=== PATIENT | male | born 1990 | race American Indian/Alaskan Native ===

== ENCOUNTER 2017-02-11 16:34 | Inpatient (IN) | payer MEDICAID, OTHER ==
[2017-02-11 16:35] VITALS: BMI 27.4
--- NOTE | 2017-02-11 17:16 | C.PDOC ---
History Of Present Illness 26 y/o male, whose PMHx includes diabetes and hypertension, presents to the ED complaining of weakness and near syncope "all the time." He reports that he cannot perform his ADL. Patient states that he was admitted one month prior for same but he has cancelled his insurance so he hasn't been able to follow up with his PMD. Patient denies fever, chills, abdominal pain, vomiting, chest pain , shortness of breath, or other complaints. Chief Complaint (Nursing): Dizziness/Lightheaded History Per: Patient History/Exam Limitations: no limitations Onset/Duration Of Symptoms: Days, Gradual, Persistent Current Symptoms Are (Timing): Still Present Fall Associated With With Symptoms: No Recent travel outside of the [place]: No Past Medical History Reviewed: Historical Data, Nursing Documentation, Vital Signs Vital Signs: Last Vital Signs Temp 99.8 F H 02/11/17 16:53 Pulse 103 H 02/11/17 16:53 Resp 20 02/11/17 16:53 BP 108/67 02/11/17 16:53 Pulse Ox 98 02/11/17 18:09 - Medical History PMH: Diabetes (Type 1), Fractures (R shoulder 2015), HTN Surgical History: No Surg Hx Family History: States: Diabetes (Grandmother on Fathers side) - Social History Hx Tobacco Use: No Hx Alcohol Use: No Hx Substance Use: Yes - Immunization History Hx Tetanus Toxoid Vaccination: Yes Hx Influenza Vaccination: Yes Hx Pneumococcal Vaccination: No Review Of Systems Except As Marked, All Systems Reviewed And Found Negative. Constitutional: Positive for: Weakness. Negative for: Fever, Chills Cardiovascular: Negative for: Chest Pain Respiratory: Negative for: Shortness of Breath Gastrointestinal: Negative for: Vomiting, Abdominal Pain Neurological: Positive for: Other (near syncope) Physical Exam - Physical Exam Appears: Non-toxic, No Acute Distress, Other (weak) Skin: Normal Color, Warm, Dry Head: Atraumatic, Normacephalic Eye(s): bilateral: Normal Inspection, PERRL Oral Mucosa: Dry Neck: Normal ROM, Supple Chest: Symmetrical Cardiovascular: Rhythm Regular Respiratory: Normal Breath Sounds, No Rales, No Rhonchi, No Wheezing Gastrointestinal/Abdominal: Normal Exam, Soft, No Tenderness Back: Normal Inspection, No CVA Tenderness Extremity: Normal ROM, No Swelling Neurological/Psych: Oriented x3, Normal Speech, Normal Cognition ED Course And Treatment - Laboratory Results Result Diagrams: 02/11/17 17:56 02/11/17 17:56 O2 Sat by Pulse Oximetry: 98 (ra) Pulse Ox Interpretation: Normal Progress Note: On arrival patient finger stick at 62 at 16:54 - pt given juice and sandwich. EKG, chest x-ray, blood work, influenza A B, and urinalysis were ordered. Patient treated with IV fluids. 17:33 finger stick at 145. Disposition - Disposition Disposition: HOSPITALIZED Disposition Time: 19:14 Condition: FAIR - Clinical Impression Clinical Impression: Near syncope, Dizziness - PA / KETTLEMAN / Resident Statement MD/DO has reviewed & agrees with the documentation as recorded. - Scribe Statement The provider has reviewed the documentation as recorded by the Scribe (Frieda Nuno) All medical record entries made by the Scribe were at my direction and personally dictated by me. I have reviewed the chart and agree that the record accurately reflects my personal performance of the history, physical exam, medical decision making, and the department course for this patient. I have also personally directed, reviewed, and agree with the discharge instructions and disposition. Physician Patient Turnover Patient Signed Over To: Tyrone Cox Handoff Comments: UDS, dispo
[2017-02-11] MEDS ORDERED: Sodium Chloride 0.9% 1,000 ML IV STA (17:21)
[2017-02-11] MEDS ORDERED: Sodium Chloride 0.9% 1,000 ML ONE (17:40)
[2017-02-11 18:06] LABS: BASO # 0.1 K/uL (0.0-0.2); HEMATOCRIT 29.8 % (35.0-51.0); LYMPH # 1.7 K/uL (1.0-4.3); LYMPH % 19.5 % (20.0-40.0); MONO # 0.7 K/uL (0.0-0.8); NRBC % 0.2 % (0.0-2.0); RED CELL DISTRIBUTION WIDTH 13.3 % (11.5-14.5)
[2017-02-11 18:12] LABS: BASO % 0.7 % (0.0-2.0); EOS # 0.1 K/uL (0.0-0.7); EOS % 0.6 % (0.0-4.0); MEAN CELL VOLUME 82.3 fL (80.0-94.0); MEAN CORPUSCULAR HEMOGLOBIN 27.3 pg (27.0-31.0); MEAN CORPUSCULAR HGB CONC 33.2 g/dL (33.0-37.0); MEAN PLATELET VOLUME 7.9 fL (7.2-11.7); WHITE BLOOD COUNT 8.7 K/uL (4.8-10.8)
[2017-02-11 18:14] LABS: CHLORIDE 93 mmol/L (98-107); POTASSIUM 4.8 mmol/L (3.6-5.2); SODIUM 137 mmol/L (132-148)
[2017-02-11 18:16] LABS: ALB/GLOB RATIO 0.8 (1.0-2.1); AMYLASE 69 U/L (30-110); BILIRUBIN,TOTAL 0.4 mg/dL (0.2-1.3); CARBON DIOXIDE 26 mmol/L (22-30); GFR AFRICAN-AMERICAN > 60; TOTAL PROTEIN 8.9 g/dL (6.3-8.3)
[2017-02-11 18:17] LABS: ALKALINE PHOSPHATASE 87 U/L (38-126); ALT/SGPT 9 U/L (21-72); AST/SGOT 23 U/L (17-59); BLOOD UREA NITROGEN 23 mg/dL (9-20); CALCIUM 9.5 mg/dl (8.6-10.4); GLUCOSE,RANDOM 139 mg/dL (75-110)
--- NOTE | 2017-02-11 18:56 | RAD ---
PROCEDURE: CHEST RADIOGRAPH, 1 VIEW HISTORY: Dizziness COMPARISON: 01/17/2017 FINDINGS: LUNGS: The lungs are well inflated and clear. PLEURA: No pneumothorax or pleural fluid seen. CARDIOVASCULAR: Normal. OSSEOUS STRUCTURES: No significant abnormalities. VISUALIZED UPPER ABDOMEN: Normal. OTHER FINDINGS: None. IMPRESSION: No active pulmonary disease.
[2017-02-11 18:59] LABS: RBC URINE 11 /hpf (0-3); URINE BACTERIA OCC (<OCC); URINE BILIRUBIN NEGATIVE (NEGATIVE); URINE BLOOD 1+ (NEGATIVE); URINE COLOR Yellow (YELLOW); URINE GLUCOSE (UA) 1+ mg/dL (Normal); URINE KETONE NEGATIVE (NEGATIVE); URINE LEUKOCYTE ESTERASE NEG Leu/uL (Negative); URINE PROTEIN 2+ mg/dL (NEGATIVE); URINE UROBILINOGEN NORMAL mg/dL (0.2-1.0); WBC URINE 3 /hpf (0-5)
[2017-02-11] MEDS ORDERED: Sodium Chloride 0.9% 1,000 ML IV SCH (23:45)
--- NOTE | 2017-02-12 01:21 | CP.PCM.HP ---
<Nancy Mcbride - Last Filed: 02/12/17 01:03> History of Present Illness - History of Present Illness History of Present Illness: CC: "dizziness and lightheadedness" HPI: Patient is a 26M with medical history significant for type I diabetes who presents to the emergency department complaining of dizziness and lightheadedness which has increased in severity. Patient states he has felt dizziness since being discharged from the hospital on 01/18/17 and recently it has been affecting his daily activities. He notes symptoms to occur after standing for prolonged period of time and describes loss of coordination. Patient reports he cannot prepare meals or work due to dizziness. His oral intake of food/fluids is poor. Patient notes a hypoglycemic episode yesterday. He states symptoms are alleviated by drinking fluids. Patient also admits to headache, blurry vision, and sensitivity to bright lights. Patient currently is taking Lisinopril 2.5 mg po daily. He states his primary care doctor recently decreased the dose from 5 mg. Patient denies fever, chills, chest pain, palpitations, nausea, vomiting, abdominal pain, constipation, diarrhea, increased urinary frequency, lower extremity swelling, and numbness/change of sensation to feet. PMD: Dr. Curran PMH: DM type I (diagnosed 12 years ago), R should fracture (2015) Medications: Lisinopril 2.5 mg po daily, Lantus 20 U SC HS, Novolog 7 U before meals Allergies: NKDA Family Hx: Mother - HTN, Grandmother - DM Surgical Hx: none Social: Denies tobacco and alcohol use. Admits to smoking marijuana daily. Present on Admission - Present on Admission Any Indicators Present on Admission: No History of DVT/PE: No History of Uncontrolled Diabetes: No Urinary Catheter: No Decubitus Ulcer Present: No Review of Systems - Constitutional Constitutional: absent: Chills, Fever, Weight Loss - EENT Eyes: Blurred Vision, Photophobia. absent: Pain Ears: absent: Ear Pain, Tinnitus Nose/Mouth/Throat: Nasal Congestion. absent: Nasal Discharge - Cardiovascular Cardiovascular: Lightheadedness. absent: Chest Pain, Dyspnea, Dyspnea on Exertion, Leg Edema, Palpitations, Pedal Edema, Rapid Heart Rate - Respiratory Respiratory: Cough, Chest Congestion. absent: Wheezing, Excessive Mucous Production - Gastrointestinal Gastrointestinal: absent: Abdominal Pain, Constipation, Diarrhea, Nausea, Vomiting - Genitourinary Genitourinary: absent: Change in Urinary Stream, Difficulty Urinating - Musculoskeletal Musculoskeletal: absent: Arthralgias, Back Pain - Integumentary Integumentary: absent: Changing Lesions, New Lesions - Neurological Neurological: Dizziness, Headaches, Lack of Coordination. absent: Abnormal Hearing, Confusion, Numbness, Frequent Falls, Syncope, Tingling - Psychiatric Psychiatric: absent: Anxiety, Depression Past Patient History - Infectious Disease Hx of Infectious Diseases: None - Tetanus Immunizations Tetanus Immunization: Unknown - Past Medical History & Family History Past Medical History?: Yes - Past Social History Smoking Status: Current Some Days Smoker - CARDIAC Hx Hypertension: Yes - PULMONARY Hx Asthma: No Hx Bronchitis: No Hx Chronic Obstructive Pulmonary Disease (COPD): No Hx Emphysema: No Hx Pneumonia: No Hx Pulmonary Embolism: No Hx Sleep Apnea: No - NEUROLOGICAL Hx Alzheimer's Disease: No Hx Dementia: No Hx Migraine: No Hx Multiple Sclerosis: No Hx Parkinson's Disease: No Hx Seizures: No Hx Transient Ischemic Attacks (TIA): No - HEENT Hx HEENT Problems: No Hx Blind: No Hx Cataracts: No Hx Deafness: No Hx Difficulty Chewing: No Hx Epistaxis: No Hx Glaucoma: No Hx Macular Degeneration: No - RENAL Hx Chronic Kidney Disease: No Hx Kidney Stones: No - ENDOCRINE/METABOLIC Hx Hyperthyroidism: No Hx Hypothyroidism: No - HEMATOLOGICAL/ONCOLOGICAL Hx Anemia: No Hx Human Immunodeficiency Virus (HIV): No Hx Sickle Cell Disease: No - INTEGUMENTARY Hx Dermatological Problems: Yes Hx Eczema: Yes - MUSCULOSKELETAL/RHEUMATOLOGICAL Hx Fractures: Yes (2014) - GASTROINTESTINAL Hx Crohn's Disease: No Hx Diverticulitis: No Hx Gall Bladder Disease: No Hx Gastritis: No Hx Pancreatitis: No - GENITOURINARY/GYNECOLOGICAL Hx Sexually Transmitted Disorders: No - PSYCHIATRIC Hx Substance Use: Yes - SURGICAL HISTORY Hx Appendectomy: No Hx Carotid Endarterectomy: No Hx Cholecystectomy: No Hx Coronary Artery Bypass Graft: No Hx Coronary Stent: No Hx Tonsillectomy: No - ANESTHESIA Hx Anesthesia: No Hx Anesthesia Reactions: No Hx Malignant Hyperthermia: No Meds Allergies/Adverse Reactions: Allergies Allergy/AdvReac Type Severity Reaction Status Date / Time pollen extracts Allergy ITCHING Verified 01/17/17 13:42 Physical Exam - Constitutional Appears: Non-toxic, No Acute Distress - Head Exam Head Exam: ATRAUMATIC, NORMAL INSPECTION, NORMOCEPHALIC - Eye Exam Eye Exam: EOMI, Normal appearance, PERRL - ENT Exam ENT Exam: Mucous Membranes Dry - Neck Exam Neck exam: Positive for: Full Rom, Normal Inspection - Respiratory Exam Respiratory Exam: Clear to Auscultation Bilateral, NORMAL BREATHING PATTERN. absent: Decreased Breath Sounds, Rales, Rhonchi, Wheezes - Cardiovascular Exam Cardiovascular Exam: +S1, +S2. absent: Diastolic murmur, Gallop, Rubs, Systolic Murmur - GI/Abdominal Exam GI & Abdominal Exam: Normal Bowel Sounds, Soft. absent: Distended, Firm, Guarding, Hernia - Extremities Exam Extremities exam: Positive for: pedal pulses present. Negative for: pedal edema Additional comments: bleeding ulcer to left heel - Neurological Exam Neurological exam: Alert, Oriented x3 - Psychiatric Exam Psychiatric exam: Normal Affect, Normal Mood - Skin Skin Exam: Dry, Normal Color Results - Vital Signs Recent Vital Signs: Last Vital Signs Temp 99.3 F 02/12/17 00:20 Pulse 102 H 02/12/17 00:20 Resp 20 02/12/17 00:20 BP 114/76 02/12/17 00:20 Pulse Ox 97 02/12/17 00:20 - Labs Result Diagrams: 02/11/17 17:56 02/11/17 17:56 Labs: Laboratory Results - last 24 hr 02/11/17 21:32 POC Glucose (mg/dL) 205 H Assessment & Plan - Assessment and Plan (Free Text) Assessment: 1. Orthostatic Hypotension likely causing dizziness BP 108/67 Hold Lisinopril Orthostatic vitals Monitor 2. Dehydration Clinically dry BUN/CR 23/1.0 Normal Saline IV @100cc 3. Type I Diabetes f/u hemoglobin a1c possibly contributing component of diabetic autonomic neuropathy Continue home medications: Lantus 10 U SC HS Novolog 7 U SC before meals Accuchecks 4. Left Foot Wound f/u culture Wound Care to evaluate. f/u recs 5. Prophylaxis PT/OT eval SCD - Date & Time Date: 02/12/17 Time: 01:38 <Sher Jaime P - Last Filed: 02/14/17 20:15> Results - Vital Signs Recent Vital Signs: Last Vital Signs Temp 97.7 F 02/14/17 07:00 Pulse 90 02/14/17 08:00 Resp 20 03/24/17 07:00 BP 140/91 H 02/14/17 07:00 Pulse Ox 99 02/14/17 07:00 - Labs Result Diagrams: 02/14/17 07:23 02/14/17 07:23 Labs: Laboratory Results - last 24 hr 02/14/17 11:09 POC Glucose (mg/dL) 309 H Attending/Attestation - Attestation I have personally seen and examined this patient.: Yes I have fully participated in the care of the patient.: Yes I have reviewed all pertinent clinical information: Yes
[2017-02-12] MEDS ORDERED: Influenza Virus Vaccine 45 mcg/0.5 ml Syr IM ONE (05:03)
[2017-02-12] MEDS ORDERED: Pneumococcal 23-Valent Vaccine IM ONE (05:03)
[2017-02-12] MEDS ORDERED: (Novolin R) Insulin Human Regular 100 units/ml vial SC SCH (07:30)
[2017-02-12 07:32] LABS: BASO % 0.4 % (0.0-2.0); EOS % 0.5 % (0.0-4.0); HEMATOCRIT 29.3 % (35.0-51.0); LYMPH # 1.9 K/uL (1.0-4.3); LYMPH % 24.3 % (20.0-40.0); MEAN CELL VOLUME 82.4 fL (80.0-94.0); MEAN CORPUSCULAR HGB CONC 32.8 g/dL (33.0-37.0); MEAN PLATELET VOLUME 7.7 fL (7.2-11.7); MONO # 0.6 K/uL (0.0-0.8); MONO % 8.2 % (0.0-10.0); RED CELL DISTRIBUTION WIDTH 12.9 % (11.5-14.5); WHITE BLOOD COUNT 7.7 K/uL (4.8-10.8)
[2017-02-12 07:33] LABS: CHLORIDE 93 mmol/L (98-107); POTASSIUM 4.2 mmol/L (3.6-5.2); SODIUM 134 mmol/L (132-148)
[2017-02-12 07:35] LABS: ALB/GLOB RATIO 0.8 (1.0-2.1); AST/SGOT 20 U/L (17-59); BILIRUBIN,TOTAL 0.3 mg/dL (0.2-1.3); BLOOD UREA NITROGEN 18 mg/dL (9-20); CARBON DIOXIDE 29 mmol/L (22-30); CHOLESTEROL 151 mg/dL (0-199); GFR AFRICAN-AMERICAN > 60; TOTAL PROTEIN 7.6 g/dL (6.3-8.3)
[2017-02-12 07:36] LABS: ALKALINE PHOSPHATASE 85 U/L (38-126); ALT/SGPT 13 U/L (21-72); CALCIUM 8.7 mg/dl (8.6-10.4); GLUCOSE,RANDOM 245 mg/dL (75-110); MAGNESIUM 1.6 mg/dL (1.6-2.3); PHOSPHOROUS 3.7 mg/dL (2.5-4.5)
[2017-02-12] MEDS: (Novolin R) Insulin Human Regular 100 units/ml vial SC SCH ×3 (08:30→17:30)
--- NOTE | 2017-02-12 09:47 | CP.PCM.PN ---
<Kirstin Khan - Last Filed: 02/12/17 15:29> Subjective - Date & Time of Evaluation Date of Evaluation: 02/12/17 Time of Evaluation: 07:15 - Subjective Subjective: Internal medicine progress note for Dr. Bueno - Kirstin Khan, PGY-1 Pt S & E at bedside. Pt reports continued weakness, some abdominal pain, dizziness upon standing, has not been eating due to inability to obtain own food, blood sugars have been low - in 60's at home. Did not follow up with PMD as specified at last admission. Denies N/V/F/C, SOB, CP, constipation, diarrhea. Slept ok. Objective - Vital Signs/Intake and Output Vital Signs (last 24 hours): Temp Pulse Resp BP Pulse Ox 98.6 F 96 H 17 138/92 H 99 02/12/17 07:40 02/12/17 07:40 02/12/17 07:40 02/12/17 07:40 02/12/17 07:40 Intake and Output: 02/12/17 02/12/17 06:59 18:59 Intake Total 840 Balance 840 - Medications Medications: Current Medications Sodium Chloride (Sodium Chloride 0.9%) 1,000 mls @ 100 mls/hr IV .Q10H [facility] Insulin Glargine (Lantus) 10 unit SC HS [facility] Insulin Human Regular (Novolin R) 7 unit SC TIDAC [facility] Last Admin: 02/12/17 08:30 Dose: 7 unit Pneumococcal Polyvalent Vaccine (Pneumovax 23 Vaccine) 0.5 ml IM .ONCE ONE Stop: 02/14/17 10:01 - Labs Labs: 02/12/17 07:06 02/12/17 07:06 - Constitutional Appears: Non-toxic, No Acute Distress - Head Exam Head Exam: ATRAUMATIC, NORMAL INSPECTION, NORMOCEPHALIC - Eye Exam Eye Exam: EOMI, Normal appearance, PERRL Pupil Exam: NORMAL ACCOMODATION, PERRL - ENT Exam ENT Exam: Mucous Membranes Dry (lips also dry), Normal Exam - Neck Exam Neck Exam: Full ROM, Normal Inspection - Respiratory Exam Respiratory Exam: Clear to Ausculation Bilateral, NORMAL BREATHING PATTERN. absent: Rales, Rhonchi, Wheezes - Cardiovascular Exam Cardiovascular Exam: REGULAR RHYTHM, +S1, +S2 - GI/Abdominal Exam GI & Abdominal Exam: Soft, Normal Bowel Sounds. absent: Distended, Firm, Guarding, Rigid, Tenderness - Extremities Exam Extremities Exam: Full ROM, Normal Inspection - Back Exam Back Exam: Full ROM, NORMAL INSPECTION - Neurological Exam Neurological Exam: Alert, Awake, CN II-XII Intact, Oriented x3 - Psychiatric Exam Psychiatric exam: Normal Affect, Normal Mood - Skin Skin Exam: Dry, Intact, Normal Color, Warm Assessment and Plan - Assessment and Plan (Free Text) Assessment: Orthostatic Hypotension likely causing dizziness BP 108/67 Holding Lisinopril Orthostatic vitals Monitor Dehydration Pt still clinically dry BUN/CR 18/0.9- improving Normal Saline IV @100cc- increased to 125 cc Type I Diabetes A1c 12.8 Continue home medications: Lantus 10 U SC HS Novolog 7 U SC before meals 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 Left Foot Wound f/u culture Wound Care Podiatry consulted Migraine headaches (chronic) Tylenol PRN Nausea Zofran PRN Prophylaxis PT/OT eval SCD DW attending <Pritesh Bueno H - Last Filed: 02/12/17 17:37> Objective - Vital Signs/Intake and Output Vital Signs (last 24 hours): Temp Pulse Resp BP Pulse Ox 99.0 F 94 H 20 134/89 98 02/12/17 16:45 02/12/17 16:45 02/12/17 16:45 02/12/17 16:45 02/12/17 16:45 Intake and Output: 02/12/17 02/12/17 06:59 18:59 Intake Total 840 1300 Output Total 700 Balance 840 600 - Medications Medications: Current Medications Acetaminophen (Tylenol 325mg Tab) 650 mg PO Q6 PRN PRN Reason: Headache Last Admin: 02/12/17 11:51 Dose: 650 mg Sodium Chloride (Sodium Chloride 0.9%) 1,000 mls @ 125 mls/hr IV .Q8H [facility] Last Admin: 02/12/17 11:15 Dose: 125 mls/hr Insulin Glargine (Lantus) 10 unit SC HS [facility] Insulin Human Regular (Novolin R) 7 unit SC TIDAC [facility] Last Admin: 02/12/17 17:30 Dose: 7 unit Lisinopril (Zestril) 2.5 mg PO DAILY [facility] Last Admin: 02/12/17 10:04 Dose: Not Given Ondansetron HCl (Zofran Odt) 4 mg PO Q6H PRN PRN Reason: Nausea/Vomiting Pneumococcal Polyvalent Vaccine (Pneumovax 23 Vaccine) 0.5 ml IM .ONCE ONE Stop: 02/14/17 10:01 - Labs Labs: 02/12/17 07:06 02/12/17 07:06 Attending/Attestation - Attestation I have personally seen and examined this patient.: Yes I have fully participated in the care of the patient.: Yes I have reviewed all pertinent clinical information, including history, physical exam and plan: Yes Notes (Text): Medical Attending: Patient was seen and examined by me. Agree with the above note by the resident. The patient was started on IVF by admitting team and I agree with this. He still appears dry on exam and when checking orthostatic numbers there was a wide change and he felt dizzy and tired. For now continue with the IVF, hold off on lisinopril for the time. With reguards to his DM - he does have a high HgbA1C. Will try to get diabetic education to come and speak with the patient. thank you Pritesh Bueno
[2017-02-12] MEDS: Sodium Chloride 0.9% 1,000 ML IV SCH ×2 (11:15→20:00)
--- NOTE | 2017-02-12 12:11 | CARD ---
APPROVED REPORT EKG Measurement Heart [id number] <Conclusion> Sinus tachycardia Nonspecific ST abnormality Abnormal ECG
[2017-02-12] MEDS: (Lantus) Insulin Glargine, Recombinant SC SCH (22:16)
[2017-02-13] MEDS: Sodium Chloride 0.9% 1,000 ML IV SCH ×2 (04:34→21:15)
[2017-02-13] MEDS: (Novolin R) Insulin Human Regular 100 units/ml vial SC SCH ×3 (07:30→17:47)
--- NOTE | 2017-02-13 08:22 | CP.PCM.PN ---
<Kirstin Khan - Last Filed: 02/13/17 12:24> Subjective - Date & Time of Evaluation Date of Evaluation: 02/13/17 Time of Evaluation: 07:00 - Subjective Subjective: Internal medicine progress note for Dr. Bueno - Kirstin Khan, PGY-1 Pt S & E at bedside Pt w/continued headache overnight - instructed pt to ask for Tylenol as needed. Continues w/weakness, dizziness upon standing, is tolerating diet. Cough has improved. Is sleeping ok. Denies N/V/F/C, SOB, CP, abdominal pain, lower extremity pain. Objective - Vital Signs/Intake and Output Vital Signs (last 24 hours): Temp Pulse Resp BP Pulse Ox 99.2 F 95 H 20 146/93 H 96 02/12/17 23:35 02/13/17 03:40 02/12/17 23:35 02/12/17 23:35 02/12/17 23:35 Intake and Output: 02/13/17 02/13/17 06:59 18:59 Intake Total 2660 Output Total 1800 Balance 860 - Medications Medications: Current Medications Acetaminophen (Tylenol 325mg Tab) 650 mg PO Q6 PRN PRN Reason: Headache Last Admin: 02/12/17 21:41 Dose: 650 mg Sodium Chloride (Sodium Chloride 0.9%) 1,000 mls @ 125 mls/hr IV .Q8H [facility] Last Admin: 02/13/17 04:34 Dose: 125 mls/hr Insulin Glargine (Lantus) 10 unit SC HS [facility] Last Admin: 02/12/17 22:16 Dose: 10 units Insulin Human Regular (Novolin R) 7 unit SC TIDAC [facility] Last Admin: 02/12/17 17:30 Dose: 7 unit Lisinopril (Zestril) 2.5 mg PO DAILY [facility] Last Admin: 02/12/17 10:04 Dose: Not Given Ondansetron HCl (Zofran Odt) 4 mg PO Q6H PRN PRN Reason: Nausea/Vomiting Pneumococcal Polyvalent Vaccine (Pneumovax 23 Vaccine) 0.5 ml IM .ONCE ONE Stop: 02/14/17 10:01 Vitamin A (Vitamin A & D Oint Ud Foilpak) 0.5 ea TOP BID [facility] - Labs Labs: 02/12/17 07:06 02/12/17 07:06 - Constitutional Appears: Non-toxic, No Acute Distress - Head Exam Head Exam: ATRAUMATIC, NORMAL INSPECTION, NORMOCEPHALIC - Eye Exam Eye Exam: EOMI, Normal appearance, PERRL Pupil Exam: NORMAL ACCOMODATION, PERRL - ENT Exam ENT Exam: Mucous Membranes Moist, Normal Exam - Neck Exam Neck Exam: Full ROM, Normal Inspection - Respiratory Exam Respiratory Exam: Clear to Ausculation Bilateral, NORMAL BREATHING PATTERN. absent: Chest Wall Tenderness, Rales, Rhonchi, Wheezes, Respiratory Distress - Cardiovascular Exam Cardiovascular Exam: REGULAR RHYTHM, +S1, +S2 - GI/Abdominal Exam GI & Abdominal Exam: Soft, Normal Bowel Sounds. absent: Tenderness - Extremities Exam Extremities Exam: absent: Normal Inspection (Left foot w/dressing in place- C/D/ I, non tender), Tenderness - Neurological Exam Neurological Exam: Alert, Awake, CN II-XII Intact, Oriented x3 - Psychiatric Exam Psychiatric exam: Normal Affect, Normal Mood - Skin Skin Exam: Dry, Intact, Normal Color, Warm Assessment and Plan - Assessment and Plan (Free Text) Assessment: Orthostatic Hypotension likely causing dizziness BP 148/93- highly variable, merrick when standing Holding Lisinopril Orthostatic vitals Q12H Monitor Dehydration - resolving Pt still clinically dry BUN/CR Normal Saline IV @125cc increased to 150cc/hr Type I Diabetes A1c 12.8 Continue home medications: Lantus 10 U SC HS Novolog 7 U SC before meals 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 Left Foot Wound wound culture pos for GNR, GPC Wound Care daily Podiatry following Migraine headaches (chronic) Tylenol PRN Nausea Zofran PRN Prophylaxis PT/OT eval SCD Dispo Cont current mgmt PO care daily Sponge bath Skin care PT/OT eval when BP stabilizes plan for dc tomorrow To FU in clinic for diabetes and orthostatic hypotension Diabetic education DW attending <Pritesh Bueno - Last Filed: 02/13/17 12:49> Objective - Vital Signs/Intake and Output Vital Signs (last 24 hours): Temp Pulse Resp BP Pulse Ox 98.4 F 105 H 20 131/86 99 02/13/17 08:23 02/13/17 11:51 02/13/17 11:51 02/13/17 11:51 02/13/17 11:51 Intake and Output: 02/13/17 02/13/17 06:59 18:59 Intake Total 2660 Output Total 1800 Balance 860 - Medications Medications: Current Medications Acetaminophen (Tylenol 325mg Tab) 650 mg PO Q6 PRN PRN Reason: Headache Last Admin: 02/13/17 09:43 Dose: 650 mg Sodium Chloride (Sodium Chloride 0.9%) 1,000 mls @ 150 mls/hr IV .Q6H40M [facility] Insulin Glargine (Lantus) 10 unit SC HS [facility] Last Admin: 02/12/17 22:16 Dose: 10 units Insulin Human Regular (Novolin R) 7 unit SC TIDAC [facility] Last Admin: 02/13/17 12:25 Dose: 7 unit Lisinopril (Zestril) 2.5 mg PO DAILY [facility] Last Admin: 02/12/17 10:04 Dose: Not Given Ondansetron HCl (Zofran Odt) 4 mg PO Q6H PRN PRN Reason: Nausea/Vomiting Pneumococcal Polyvalent Vaccine (Pneumovax 23 Vaccine) 0.5 ml IM .ONCE ONE Stop: 02/14/17 10:01 Vitamin A (Vitamin A & D Oint Ud Foilpak) 0.5 ea TOP BID [facility] Last Admin: 02/13/17 09:43 Dose: 0.5 ea - Labs Labs: 02/13/17 11:57 02/13/17 11:57 Attending/Attestation - Attestation I have personally seen and examined this patient.: Yes I have fully participated in the care of the patient.: Yes I have reviewed all pertinent clinical information, including history, physical exam and plan: Yes Notes (Text): Medical Attending: Patient was seen and examined by me. Agree with the above note by the resident The patient reports he still feels overall weak and tired. At this time will continue with the IVF - the patient has a very high Hgb A1C and the accuchecks are mostly in the 250s. From what I understand talking to the patient as well as the staff and resident - the patient at home does not get food for himself and has to rely on others at time - this results in the patient having very low sugar values that he is reporting. When he came to the hospital he had a low accuchek as well. Because of the orthostaic numbers - hold off on KEYONNA-I thank you Pritesh Bueno
[2017-02-13] MEDS: Vitamins A & D Oint UD Foilpak TOP SCH ×2 (09:43→18:49)
[2017-02-13 11:52] VITALS: RESP 20
[2017-02-13 12:07] LABS: BASO # 0.1 K/uL (0.0-0.2); BASO % 0.7 % (0.0-2.0); EOS % 0.5 % (0.0-4.0); LYMPH # 1.1 K/uL (1.0-4.3); LYMPH % 15.1 % (20.0-40.0); MEAN CORPUSCULAR HEMOGLOBIN 26.9 pg (27.0-31.0); MEAN CORPUSCULAR HGB CONC 32.8 g/dL (33.0-37.0); MEAN PLATELET VOLUME 8.7 fL (7.2-11.7); MONO # 0.4 K/uL (0.0-0.8); RED CELL DISTRIBUTION WIDTH 12.9 % (11.5-14.5); WHITE BLOOD COUNT 7.4 K/uL (4.8-10.8)
[2017-02-13 12:13] LABS: CHLORIDE 93 mmol/L (98-107)
[2017-02-13 12:14] LABS: POTASSIUM 4.8 mmol/L (3.6-5.2); SODIUM 133 mmol/L (132-148)
[2017-02-13 12:16] LABS: ALB/GLOB RATIO 0.7 (1.0-2.1); ALKALINE PHOSPHATASE 83 U/L (38-126); AST/SGOT 19 U/L (17-59); BILIRUBIN,TOTAL 0.4 mg/dL (0.2-1.3); BLOOD UREA NITROGEN 16 mg/dL (9-20); CARBON DIOXIDE 27 mmol/L (22-30); GFR AFRICAN-AMERICAN > 60; TOTAL PROTEIN 7.7 g/dL (6.3-8.3)
[2017-02-13 12:17] LABS: ALT/SGPT 26 U/L (21-72)
[2017-02-13 12:24] LABS: GLUCOSE,RANDOM 408 mg/dL (75-110)
[2017-02-13] MEDS: Piperacillin/Tazobact 3.375 GM in Sodium Chloride 100 ML IVPB SCH (17:40)
[2017-02-13] MEDS ORDERED: Vancomycin 1 gm/NS 200 ml 200 ML IVPB SCH (18:00)
[2017-02-13] MEDS: (Lantus) Insulin Glargine, Recombinant SC SCH (21:13)
[2017-02-13] MEDS ORDERED: Aluminum Hydroxide/Magnesium Hydroxide Susp (30 mL) PO PRN (23:39)
[2017-02-14] MEDS: Piperacillin/Tazobact 3.375 GM in Sodium Chloride 100 ML IVPB SCH ×2 (01:00→09:37)
[2017-02-14] MEDS: Sodium Chloride 0.9% 1,000 ML IV SCH ×3 (01:30→09:44)
[2017-02-14 02:08] VITALS: O2SAT 99
[2017-02-14 07:31] LABS: BASO # 0.1 K/uL (0.0-0.2); BASO % 0.7 % (0.0-2.0); EOS # 0.1 K/uL (0.0-0.7); HEMATOCRIT 26.7 % (35.0-51.0); LYMPH # 1.6 K/uL (1.0-4.3); LYMPH % 22.2 % (20.0-40.0); MEAN CELL VOLUME 81.7 fL (80.0-94.0); MEAN CORPUSCULAR HEMOGLOBIN 26.9 pg (27.0-31.0); MEAN CORPUSCULAR HGB CONC 32.9 g/dL (33.0-37.0); MEAN PLATELET VOLUME 7.7 fL (7.2-11.7); MONO # 0.5 K/uL (0.0-0.8); MONO % 7.1 % (0.0-10.0); WHITE BLOOD COUNT 7.4 K/uL (4.8-10.8)
[2017-02-14 07:58] LABS: CHLORIDE 94 mmol/L (98-107); POTASSIUM 4.6 mmol/L (3.6-5.2); SODIUM 136 mmol/L (132-148)
[2017-02-14 08:00] LABS: AST/SGOT 16 U/L (17-59); BILIRUBIN,TOTAL 0.2 mg/dL (0.2-1.3); CARBON DIOXIDE 27 mmol/L (22-30); GFR AFRICAN-AMERICAN > 60
[2017-02-14 08:01] LABS: ALB/GLOB RATIO 0.8 (1.0-2.1); ALKALINE PHOSPHATASE 85 U/L (38-126); ALT/SGPT 12 U/L (21-72); BLOOD UREA NITROGEN 15 mg/dL (9-20); CALCIUM 8.7 mg/dl (8.6-10.4); GLUCOSE,RANDOM 371 mg/dL (75-110); TOTAL PROTEIN 7.4 g/dL (6.3-8.3)
[2017-02-14] MEDS: (Novolin R) Insulin Human Regular 100 units/ml vial SC SCH ×2 (08:07→12:21)
[2017-02-14] MEDS: Vitamins A & D Oint UD Foilpak TOP SCH (09:48)
[2017-02-14] MEDS ORDERED: Pneumococcal 23-Valent Vaccine IM ONE (10:00)
--- NOTE | 2017-02-14 10:52 | CP.PCM.DIS ---
<Kirstin Khan - Last Filed: 02/14/17 10:52> Provider - Provider Date of Admission: 02/14/17 09:19 Attending physician: Sher Jaime MD Primary care physician: Bina Consults: Nohemi Rojas Time Spent in preparation of Discharge (in minutes): 60 Hospital Course - Lab Results Lab Results: Most Recent Lab Values WBC 7.4 K/uL (4.8-10.8) 02/14/17 07:23 RBC 3.27 Mil/uL (4.40-5.90) L 02/14/17 07:23 Hgb 8.8 g/dL (12.0-18.0) L 02/14/17 07:23 Hct 26.7 % (35.0-51.0) L 02/14/17 07:23 MCV 81.7 fL (80.0-94.0) 02/14/17 07:23 MCH 26.9 pg (27.0-31.0) L 02/14/17 07:23 MCHC 32.9 g/dL (33.0-37.0) L 02/14/17 07:23 RDW 13.0 % (11.5-14.5) 02/14/17 07:23 Plt Count 383 K/uL (130-400) 02/14/17 07:23 MPV 7.7 fL (7.2-11.7) 02/14/17 07:23 Neut % (Auto) 69.0 % (50.0-75.0) 02/14/17 07:23 Lymph % (Auto) 22.2 % (20.0-40.0) 02/14/17 07:23 Berrien % (Auto) 7.1 % (0.0-10.0) 02/14/17 07:23 Eos % (Auto) 1.0 % (0.0-4.0) 02/14/17 07:23 Baso % (Auto) 0.7 % (0.0-2.0) 02/14/17 07:23 Neut # 5.1 K/uL (1.8-7.0) 02/14/17 07:23 Lymph # 1.6 K/uL (1.0-4.3) 02/14/17 07:23 [place] # 0.5 K/uL (0.0-0.8) 02/14/17 07:23 Eos # 0.1 K/uL (0.0-0.7) 02/14/17 07:23 Baso # 0.1 K/uL (0.0-0.2) 02/14/17 07:23 Differential Comment 02/11/17 17:56 Sodium 136 mmol/L (132-148) 02/14/17 07:23 Potassium 4.6 mmol/L (3.6-5.2) 02/14/17 07:23 Chloride 94 mmol/L (98-107) L 02/14/17 07:23 Carbon Dioxide 27 mmol/L (22-30) 02/14/17 07:23 Anion Gap 19 (10-20) 02/14/17 07:23 BUN 15 mg/dL (9-20) 02/14/17 07:23 Creatinine 0.8 MG/DL (0.8-1.5) 02/14/17 07:23 Est GFR ( Amer) > 60 02/14/17 07:23 Est GFR (Non-Af Amer) > 60 02/14/17 07:23 POC Glucose (mg/dL) 354 mg/dL (65-110) H 02/14/17 06:04 Random Glucose 371 mg/dL (75-110) H 02/14/17 07:23 Hemoglobin A1c 12.8 % (4.2-6.5) H 02/12/17 07:06 Calcium 8.7 mg/dl (8.6-10.4) 02/14/17 07:23 Phosphorus 3.7 mg/dL (2.5-4.5) 02/12/17 07:06 Magnesium 1.6 mg/dL (1.6-2.3) 02/12/17 07:06 Total Bilirubin 0.2 mg/dL (0.2-1.3) 02/14/17 07:23 AST 16 U/L (17-59) L 02/14/17 07:23 ALT 12 U/L (21-72) L D 02/14/17 07:23 Alkaline Phosphatase 85 U/L (38-126) 02/14/17 07:23 Total Protein 7.4 g/dL (6.3-8.3) 02/14/17 07:23 Albumin 3.2 g/dL (3.5-5.0) L 02/14/17 07:23 Globulin 4.2 gm/dL (2.2-3.9) H 02/14/17 07:23 Albumin/Globulin Ratio 0.8 (1.0-2.1) L 02/14/17 07:23 Triglycerides 122 mg/dL (0-149) 02/12/17 07:06 Cholesterol 151 mg/dL (0-199) 02/12/17 07:06 LDL Cholesterol Direct 79 mg/dL (0-129) 02/12/17 07:06 HDL Cholesterol 29 mg/dL (30-70) L 02/12/17 07:06 Amylase 69 U/L (30-110) 02/11/17 17:56 Lipase 20 U/L (23-300) L 02/11/17 17:56 Urine Color Yellow (YELLOW) 02/11/17 18:51 Urine Clarity Hazy (Clear) 02/11/17 18:51 Urine pH 5.0 (5.0-8.0) 02/11/17 18:51 Ur Specific Petroleum 1.025 (1.003-1.030) 02/11/17 18:51 Urine Protein 2+ mg/dL (NEGATIVE) H 02/11/17 18:51 Urine Glucose (UA) 1+ mg/dL (Normal) H 02/11/17 18:51 Urine Ketones Negative mg/dL (NEGATIVE) 02/11/17 18:51 Urine Blood 1+ (NEGATIVE) H 02/11/17 18:51 Urine Nitrate Negative (NEGATIVE) 02/11/17 18:51 Urine Bilirubin Negative (NEGATIVE) 02/11/17 18:51 Urine Urobilinogen Normal mg/dL (0.2-1.0) 02/11/17 18:51 Ur Leukocyte Esterase Neg Rowdy/uL (Negative) 02/11/17 18:51 Urine WBC (Auto) 3 /hpf (0-5) 02/11/17 18:51 Urine RBC (Auto) 11 /hpf (0-3) H 02/11/17 18:51 Ur Squamous Epith Cells < 1 /hpf (0-5) 02/11/17 18:51 Urine Bacteria Occ (<OCC) H 02/11/17 18:51 Hyaline Casts 6-10 /lpf (0-2) H 02/11/17 18:51 Urine Opiates Screen Negative (NEGATIVE) 02/11/17 18:51 Urine Methadone Screen Negative (NEGATIVE) 02/11/17 18:51 Ur Barbiturates Screen Negative (NEGATIVE) 02/11/17 18:51 Ur Phencyclidine Scrn Negative (NEGATIVE) 02/11/17 18:51 Ur Amphetamines Screen Negative (NEGATIVE) 02/11/17 18:51 U Benzodiazepines Scrn Negative (NEGATIVE) 02/11/17 18:51 U Oth Cocaine Metabols Negative (NEGATIVE) 02/11/17 18:51 U Cannabinoids Screen Positive (NEGATIVE) 02/11/17 18:51 Serum Ketones Negative (NEGATIVE) 02/11/17 17:56 Influenza Typ A,B (EIA) Negative for flu a/b (NEGATIVE) 02/11/17 17:42 - Hospital Course Hospital Course: Patient is a 26M with medical history significant for type I diabetes who presents to the emergency department complaining of dizziness and lightheadedness which has increased in severity. Patient states he has felt dizziness since being discharged from the hospital on 01/18/17 and recently it has been affecting his daily activities. He notes symptoms to occur after standing for prolonged period of time and describes loss of coordination. Patient reports he cannot prepare meals or work due to dizziness. His oral intake of food/fluids is poor. Patient notes a hypoglycemic episode yesterday. He states symptoms are alleviated by drinking fluids. Patient also admits to headache, blurry vision, and sensitivity to bright lights. Patient currently is taking Lisinopril 2.5 mg po daily. He states his primary care doctor recently decreased the dose from 5 mg. Patient denies fever, chills, chest pain, palpitations, nausea, vomiting, abdominal pain, constipation, diarrhea, increased urinary frequency, lower extremity swelling, and numbness/change of sensation to feet. Patient was found to have dehydration and orthostatic hypotension - pt was fluid resuscitated with resolution of symptoms. KEYONNA inhibitor was held due to severe orthostatic hypotension, pt instructed to hold it at home until he follows up with primary care to determine if ok to re-start medication for kidney protection. Hemoglobin A1c 12.8- patient given diabetes education, put on diabetes regimen. Pt had headache- which was treated. Patient has wound on left foot, was seen/evaluated by podiatry with wound care applied. Patient was instructed to follow up next week with the [facility] for diabetes management and 2 Mondays from now (02/24/17) with podiatry (Dr. Rojas). Please see EMR for full record of hospital course. - Date & Time of H&P Date of H&P: 02/12/17 Time of H&P: 01:03 Discharge Exam - Head Exam Head Exam: ATRAUMATIC, NORMAL INSPECTION, NORMOCEPHALIC - Eye Exam Eye Exam: EOMI, Normal appearance, PERRL Pupil Exam: NORMAL ACCOMODATION, PERRL - ENT Exam ENT Exam: Mucous Membranes Moist, Normal Exam - Neck Exam Neck exam: Full Rom, Normal Inspection - Respiratory Exam Respiratory Exam: Clear to PA & Lateral, NORMAL BREATHING PATTERN, UNREMARKABLE - Cardiovascular Exam Cardiovascular Exam: REGULAR RHYTHM, +S1, +S2 - GI/Abdominal Exam GI & Abdominal Exam: Normal Bowel Sounds, Soft, Unremarkable. absent: Tenderness - Extremities Exam Extremities exam: full ROM, normal inspection - Neurological Exam Neurological exam: Alert, CN II-XII Intact, Oriented x3 - Psychiatric Exam Psychiatric exam: Normal Affect, Normal Mood - Skin Skin Exam: Dry, Intact, Normal Color, Warm Discharge Plan - Discharge Medications Prescriptions: Ciprofloxacin [Cipro] 500 mg PO BID #14 tab Insulin Glargine, Recombina [Lantus] 10 unit SC HS #30 unit Insulin Human Regular [Novolin R] 7 unit SC TIDAC #2 unit - Follow Up Plan Condition: STABLE Disposition: HOME/ ROUTINE Instructions: Ciprofloxacin (By mouth), Insulin Human Regular (By injection), Insulin Glargine (By injection), Syncope (DC), Basic Carbohydrate Counting (DC) , Meal Planning with the Plate Method (DC), Meal Planning with Diabetes Exchanges (DC), Dizziness (GEN) Additional Instructions: Patient cleared for discharge home as per Dr. Bueno. Patient instructed to follow up next week with the [facility] for diabetes management. Patient will follow up with podiatry for outpatient wound care for foot infection. Patient is being discharged on antibiotics for wound infection - please take all medications as prescribed. Please do not take the Lisinopril - medication for blood pressure- as you have been having severe orthostatic hypotension. Please discuss whether to re-start this medication with the doctor when you follow up with the [facility]. If you have a recurrence of symptoms, please return to hospital. Referrals: [facility] [Outside] Aimna Rojas DPM [Staff Provider] - <Pritesh Bueno - Last Filed: 02/14/17 15:42> Provider - Provider Date of Admission: 02/14/17 09:19 Attending physician: Sher Jaime MD Hospital Course - Lab Results Lab Results: Most Recent Lab Values WBC 7.4 K/uL (4.8-10.8) 02/14/17 07:23 RBC 3.27 Mil/uL (4.40-5.90) L 02/14/17 07:23 Hgb 8.8 g/dL (12.0-18.0) L 02/14/17 07:23 Hct 26.7 % (35.0-51.0) L 02/14/17 07:23 MCV 81.7 fL (80.0-94.0) 02/14/17 07:23 MCH 26.9 pg (27.0-31.0) L 02/14/17 07:23 MCHC 32.9 g/dL (33.0-37.0) L 02/14/17 07:23 RDW 13.0 % (11.5-14.5) 02/14/17 07:23 Plt Count 383 K/uL (130-400) 02/14/17 07:23 MPV 7.7 fL (7.2-11.7) 02/14/17 07:23 Neut % (Auto) 69.0 % (50.0-75.0) 02/14/17 07:23 Lymph % (Auto) 22.2 % (20.0-40.0) 02/14/17 07:23 [place] % (Auto) 7.1 % (0.0-10.0) 02/14/17 07:23 Eos % (Auto) 1.0 % (0.0-4.0) 02/14/17 07:23 Baso % (Auto) 0.7 % (0.0-2.0) 02/14/17 07:23 Neut # 5.1 K/uL (1.8-7.0) 02/14/17 07:23 Lymph # 1.6 K/uL (1.0-4.3) 02/14/17 07:23 [place] # 0.5 K/uL (0.0-0.8) 02/14/17 07:23 Eos # 0.1 K/uL (0.0-0.7) 02/14/17 07:23 Baso # 0.1 K/uL (0.0-0.2) 02/14/17 07:23 Differential Comment 02/11/17 17:56 Sodium 136 mmol/L (132-148) 02/14/17 07:23 Potassium 4.6 mmol/L (3.6-5.2) 02/14/17 07:23 Chloride 94 mmol/L (98-107) L 02/14/17 07:23 Carbon Dioxide 27 mmol/L (22-30) 02/14/17 07:23 Anion Gap 19 (10-20) 02/14/17 07:23 BUN 15 mg/dL (9-20) 02/14/17 07:23 Creatinine 0.8 MG/DL (0.8-1.5) 02/14/17 07:23 Est GFR ( Amer) > 60 02/14/17 07:23 Est GFR (Non-Af Amer) > 60 02/14/17 07:23 POC Glucose (mg/dL) 309 mg/dL (65-110) H 02/14/17 11:09 Random Glucose 371 mg/dL (75-110) H 02/14/17 07:23 Hemoglobin A1c 12.8 % (4.2-6.5) H 02/12/17 07:06 Calcium 8.7 mg/dl (8.6-10.4) 02/14/17 07:23 Phosphorus 3.7 mg/dL (2.5-4.5) 02/12/17 07:06 Magnesium 1.6 mg/dL (1.6-2.3) 02/12/17 07:06 Total Bilirubin 0.2 mg/dL (0.2-1.3) 02/14/17 07:23 AST 16 U/L (17-59) L 02/14/17 07:23 ALT 12 U/L (21-72) L D 02/14/17 07:23 Alkaline Phosphatase 85 U/L (38-126) 02/14/17 07:23 Total Protein 7.4 g/dL (6.3-8.3) 02/14/17 07:23 Albumin 3.2 g/dL (3.5-5.0) L 02/14/17 07:23 Globulin 4.2 gm/dL (2.2-3.9) H 02/14/17 07:23 Albumin/Globulin Ratio 0.8 (1.0-2.1) L 02/14/17 07:23 Triglycerides 122 mg/dL (0-149) 02/12/17 07:06 Cholesterol 151 mg/dL (0-199) 02/12/17 07:06 LDL Cholesterol Direct 79 mg/dL (0-129) 02/12/17 07:06 HDL Cholesterol 29 mg/dL (30-70) L 02/12/17 07:06 Amylase 69 U/L (30-110) 02/11/17 17:56 Lipase 20 U/L (23-300) L 02/11/17 17:56 Urine Color Yellow (YELLOW) 02/11/17 18:51 Urine Clarity Hazy (Clear) 02/11/17 18:51 Urine pH 5.0 (5.0-8.0) 02/11/17 18:51 Ur Specific Petroleum 1.025 (1.003-1.030) 02/11/17 18:51 Urine Protein 2+ mg/dL (NEGATIVE) H 02/11/17 18:51 Urine Glucose (UA) 1+ mg/dL (Normal) H 02/11/17 18:51 Urine Ketones Negative mg/dL (NEGATIVE) 02/11/17 18:51 Urine Blood 1+ (NEGATIVE) H 02/11/17 18:51 Urine Nitrate Negative (NEGATIVE) 02/11/17 18:51 Urine Bilirubin Negative (NEGATIVE) 02/11/17 18:51 Urine Urobilinogen Normal mg/dL (0.2-1.0) 02/11/17 18:51 Ur Leukocyte Esterase Neg Rowdy/uL (Negative) 02/11/17 18:51 Urine WBC (Auto) 3 /hpf (0-5) 02/11/17 18:51 Urine RBC (Auto) 11 /hpf (0-3) H 02/11/17 18:51 Ur Squamous Epith Cells < 1 /hpf (0-5) 02/11/17 18:51 Urine Bacteria Occ (<OCC) H 02/11/17 18:51 Hyaline Casts 6-10 /lpf (0-2) H 02/11/17 18:51 Urine Opiates Screen Negative (NEGATIVE) 02/11/17 18:51 Urine Methadone Screen Negative (NEGATIVE) 02/11/17 18:51 Ur Barbiturates Screen Negative (NEGATIVE) 02/11/17 18:51 Ur Phencyclidine Scrn Negative (NEGATIVE) 02/11/17 18:51 Ur Amphetamines Screen Negative (NEGATIVE) 02/11/17 18:51 U Benzodiazepines Scrn Negative (NEGATIVE) 02/11/17 18:51 U Oth Cocaine Metabols Negative (NEGATIVE) 02/11/17 18:51 U Cannabinoids Screen Positive (NEGATIVE) 02/11/17 18:51 Serum Ketones Negative (NEGATIVE) 02/11/17 17:56 Influenza Typ A,B (EIA) Negative for flu a/b (NEGATIVE) 02/11/17 17:42 Attending/Attestation - Attestation I have personally seen and examined this patient.: Yes I have fully participated in the care of the patient.: Yes I have reviewed all pertinent clinical information, including history, physical exam and plan: Yes Notes (Text): 02/14/17 15:36 Medical attending: Patient was seen and examined by me, agrees the above note by biomedical field service engineer. The situation for this patient is somewhat complicated. He has type 1 diabetes and he understands that he needs to take insulin. However he's been having some weakness and dizziness whenever he stands. While here he's had several orthostatic blood pressure checks which shows that he's had a wide difference in his blood pressure when laying, sitting, and standing. When he came in he was very dry on exam, he was not making ketones, however he needed to be hydrated extensively He was previously on Lantus 10 units, NovoLog 7 units 3 times a day before meals as well as on his low dose of KEYONNA inhibitor lisinopril 5 mg daily. When he came in his blood pressure was low particularly with orthostatic checks and I explained to him the importance of taking KEYONNA inhibitor however would have to forego that due to these low blood pressures. He also explains that he wasn't eating enough recently and he was also taking his insulin - he explains is that he's checked his sugars at home and they've been low blood sugars. When he came in his sugar was only 60. Since being here he's been eating and they've been higher since then. It's not clear to me what the patient's home living situation is if anybody is bring him food or if he's able to get up and go get food. He is supposed to follow-up with her private physician however he does not have insurance, so I counseled the patient that he needs to follow-up here at the hospital clinic for follow-up. Thank you very much, Pritesh Bueno
[2017-02-14 11:11] VITALS: PULSE 90
[2017-02-14 12:26] VITALS: BP 140/91; TEMP 97.7
== END 2017-02-14 14:48 | disposition home or self-care (01) | DRG 141 ==
LOC: C.ER 16:34 → C.9E 19:23 → C.6T 22:49 → OBSVTOIN 02-14 09:19
PROVIDERS: ADMIT Internal Medicine; ATTEND Internal Medicine
DX: I95.1 Orthostatic hypotension (principal); E86.0 Dehydration; E10.621 Type 1 diabetes mellitus with foot ulcer; E10.649 Type 1 diabetes mellitus with hypoglycemia without coma; L97.429 Non-pressure chronic ulcer of left heel and midfoot with unspecified severity; G43.909 Migraine, unspecified, not intractable, without status migrainosus; Z79.4 Long term (current) use of insulin

== ENCOUNTER 2017-09-15 07:23 | Inpatient (IN) | payer MEDICAID, OTHER ==
[2017-09-15] MEDS ORDERED: Dextrose 50% SYRINGE Inj (50 ml) ONE (07:30)
[2017-09-15] MEDS ORDERED: Dextrose 50% SYRINGE Inj (50 ml) IV STA (07:42)
--- NOTE | 2017-09-15 07:53 | C.PDOC ---
History Of Present Illness 27 y/o male with hx of HTN and diabetes, is brought in by EMS for hypoglycemia after being found to be altered. Patient was found on floor of apartment incontinent of urine and feces, and family notes the symptoms are consistent with prior episodes of hypoglycemia so they called EMS. Patient is currently taking Levemir and Novolog. Finger stick was done in the field which was 22 and food was given. On arrival to ER finger stick was at 32. Patient was given amp d50 and food. Patient denies recent changes to his meds and decrease PO intake. No fever or chills. PMD: none currently Time Seen by Provider: 09/15/17 07:33 Chief Complaint (Nursing): High Blood Sugar History Per: Patient, EMS, Family History/Exam Limitations: no limitations Onset/Duration Of Symptoms: Hrs Current Symptoms Are (Timing): Still Present Severity: Mild Causative (Exacerbating) Factor(s): denies: Accidentially Took To Much Medication, Recent Change In Diet Treatment Prior To Provider Evaluation: Accucheck, D50W Given Additional History Per: Patient, Family Past Medical History Reviewed: Historical Data, Nursing Documentation, Vital Signs Vital Signs: Last Vital Signs Temp 98.0 F 09/15/17 13:12 Pulse 104 H 09/15/17 13:41 Resp 18 09/15/17 13:41 BP 139/96 H 09/15/17 14:08 Pulse Ox 91 L 09/15/17 14:23 - Medical History PMH: Diabetes (Type 1), Fractures (R shoulder 2015), HTN Denies: Alzheimer's Disease, Anemia, Anxiety, Arthritis, Asthma, Bipolar Disorder, Bronchitis, COPD, Crohn's Disease, Dementia, Depression, Diverticulitis, Emphysema, Gastritis, Gall Bladder Disease, HIV, Hypercholesterolemia, Hyperthyroidism, Hypothyroidism, Kidney Stones, Migraine, Mitral Valve Prolapse, Multiple Sclerosis, Osteoporosis, Pancreatitis, Paranoia , Parkinson's Disease, Peripheral Edema, Pneumonia, Post Traumatic Stress Disorder, Pulmonary Embolism, Chronic Kidney Disease, Rheumatoid Arthritis, Schizophrenia, Seizures, Sickle Cell Disease, Sexually Transmitted Disease, Sleep Apnea, TIA Surgical History: Denies: Appendectomy, CABG, Carotid Endarterectomy, Cholecystectomy, Coronary Stent, Pacemaker, Tonsillectomy Family History: States: Diabetes (Grandmother on Fathers side) - Social History Hx Tobacco Use: No Hx Alcohol Use: No Hx Substance Use: Yes (marijuana) - Immunization History Hx Tetanus Toxoid Vaccination: Yes Hx Influenza Vaccination: Yes Hx Pneumococcal Vaccination: No Review Of Systems Except As Marked, All Systems Reviewed And Found Negative. Constitutional: Positive for: Other (Hypoglycemia). Negative for: Fever, Chills Eyes: Negative for: Vision Change Cardiovascular: Negative for: Chest Pain Respiratory: Negative for: Shortness of Breath Gastrointestinal: Negative for: Nausea, Vomiting, Abdominal Pain Genitourinary: Negative for: Frequency Neurological: Positive for: Altered Mental Status. Negative for: Headache, Dizziness Psych: Negative for: Depression, Suicidal ideation Physical Exam - Physical Exam Appears: Non-toxic, No Acute Distress Skin: Warm, Dry Head: Atraumatic, Normacephalic Eye(s): bilateral: Normal Inspection, PERRL, EOMI Oral Mucosa: Moist Neck: Supple (2 linear scratches to R neck (patient reports likely during hypoglycemic episode- denies HI/SI) Chest: Symmetrical Cardiovascular: Rhythm Regular, No Murmur Respiratory: Normal Breath Sounds, No Rales, No Rhonchi, No Wheezing Gastrointestinal/Abdominal: Soft, No Tenderness Back: Normal Inspection, No CVA Tenderness Extremity: Other (dressing to L foot (hx of operative mgmt for "almost osteomyelitis")) Neurological/Psych: Oriented x3, Normal Speech, Normal Cognition, Normal Cranial Nerves (Nuero intact), No Other (no Focal deficit) Gait: Steady ED Course And Treatment - Laboratory Results Result Diagrams: 09/15/17 08:15 09/15/17 08:43 O2 Sat by Pulse Oximetry: 91 Pulse Ox Interpretation: Abnormal - CT Scan/US CT Head w/o Other Rad Studies (CT/US): Interpreted By Me, Read By Radiologist CT/US Interpretation: PROCEDURE: CT HEAD WITHOUT CONTRAST. HISTORY: fall with hypoglycemia. COMPARISON: None available. TECHNIQUE: Axial computed tomography images were obtained through the head/brain without intravenous contrast. Radiation dose: Total exam DLP = 864 mGy-cm. This CT exam was performed using one or more of the following dose reduction techniques: Automated exposure control, adjustment of the mA and/or kV according to patient size, and/or use of iterative reconstruction technique. FINDINGS: HEMORRHAGE: No intracranial hemorrhage. BRAIN: No mass effect or edema. No atrophy or chronic microvascular ischemic changes. VENTRICLES: Unremarkable. No hydrocephalus. CALVARIUM: Unremarkable. PARANASAL SINUSES: Unremarkable as visualized. No significant inflammatory changes. MASTOID AIR CELLS: Unremarkable as visualized. No inflammatory changes. OTHER FINDINGS: None. IMPRESSION: No acute intracranial abnormality. If focal neurologic deficit persists, consider MRI. Medical Decision Making Medical Decision Making: Presenting after likely hypoglycemic seizure. Hypoglycemic in ED but AAox3. On novolog and levemir. no oral hypoglycemics. Hypothermic, likely from prolonged downtime Plans: * Otf hugger * FS [id number], strict monitoring, * d50, food * CT Head w/o * EKG * Blood labs * CXR * UA * Blood glucose FS:32 at 726. FS:128 at 7:59, FS:83 at 828. FS: 123 at 942 Labs significant for known anemia. EKG shows NSR at 87bpm with non spoecific st changes, qtc:[id number]. Cxray negative. CT head negative. [facility], hypothermia, blood glucose monitor requiring IV glucose with q hour fs Spoke to Dr. Fahad Ruiz Disposition - Disposition Disposition: HOSPITALIZED Disposition Time: 09:00 Condition: FAIR - Clinical Impression Clinical Impression: Hypoglycemia, Hypothermia - Scribe Statement The provider has reviewed the documentation as recorded by the Scribe Bella tiwari All medical record entries made by the Scribe were at my direction and personally dictated by me. I have reviewed the chart and agree that the record accurately reflects my personal performance of the history, physical exam, medical decision making, and the department course for this patient. I have also personally directed, reviewed, and agree with the discharge instructions and disposition.
[2017-09-15 08:20] LABS: BASO % 0.8 % (0.0-2.0); EOS % 0.6 % (0.0-4.0); HEMATOCRIT 29.5 % (35.0-51.0); LYMPH # 0.7 K/uL (1.0-4.3); LYMPH % 12.4 % (20.0-40.0); MEAN CELL VOLUME 83.6 fL (80.0-94.0); MEAN CORPUSCULAR HGB CONC 33.5 g/dL (33.0-37.0); MEAN PLATELET VOLUME 8.1 fL (7.2-11.7); MONO # 0.2 K/uL (0.0-0.8); MONO % 4.4 % (0.0-10.0); RED CELL DISTRIBUTION WIDTH 15.5 % (11.5-14.5); WHITE BLOOD COUNT 5.6 K/uL (4.8-10.8)
--- NOTE | 2017-09-15 09:08 | RAD ---
HISTORY: fall, hypoglycemia COMPARISON: 02/11/2017 FINDINGS: LUNGS: No active pulmonary disease. PLEURA: No significant pleural effusion identified, no pneumothorax apparent. CARDIOVASCULAR: Normal. OSSEOUS STRUCTURES: No significant abnormalities. VISUALIZED UPPER ABDOMEN: Normal. OTHER FINDINGS: None. IMPRESSION: No active disease.
[2017-09-15 09:11] LABS: CHLORIDE 98 mmol/L (98-107); POTASSIUM 3.3 mmol/L (3.6-5.2); SODIUM 138 mmol/L (132-148)
[2017-09-15 09:13] LABS: ALB/GLOB RATIO 0.8 (1.0-2.1); ALKALINE PHOSPHATASE 134 U/L (38-126); ALT/SGPT 35 U/L (21-72); AST/SGOT 34 U/L (17-59); BILIRUBIN,TOTAL 0.5 mg/dL (0.2-1.3); BLOOD UREA NITROGEN 14 mg/dL (9-20); CARBON DIOXIDE 33 mmol/L (22-30); GFR AFRICAN-AMERICAN > 60; GLUCOSE,RANDOM 81 mg/dL (75-110); TOTAL PROTEIN 8.4 g/dL (6.3-8.3)
[2017-09-15 09:14] LABS: CALCIUM 9.4 mg/dl (8.6-10.4); MAGNESIUM 1.7 mg/dL (1.6-2.3); PHOSPHOROUS 3.9 mg/dL (2.5-4.5)
--- NOTE | 2017-09-15 10:06 | CT ---
PROCEDURE: CT HEAD WITHOUT CONTRAST. HISTORY: fall with hypoglycemia COMPARISON: None available. TECHNIQUE: Axial computed tomography images were obtained through the head/brain without intravenous contrast. Radiation dose: Total exam DLP = 864 mGy-cm. This CT exam was performed using one or more of the following dose reduction techniques: Automated exposure control, adjustment of the mA and/or kV according to patient size, and/or use of iterative reconstruction technique. FINDINGS: HEMORRHAGE: No intracranial hemorrhage. BRAIN: No mass effect or edema. No atrophy or chronic microvascular ischemic changes. VENTRICLES: Unremarkable. No hydrocephalus. CALVARIUM: Unremarkable. PARANASAL SINUSES: Unremarkable as visualized. No significant inflammatory changes. MASTOID AIR CELLS: Unremarkable as visualized. No inflammatory changes. OTHER FINDINGS: None. IMPRESSION: No acute intracranial abnormality. If focal neurologic deficit persists, consider MRI.
[2017-09-15] MEDS ORDERED: Potassium Chloride 20 mEq ER Tab PO STA (10:35)
[2017-09-15] MEDS ORDERED: Potassium Chloride 20 mEq ER Tab PO ONE ×2 (10:44→12:39)
[2017-09-15 12:33] LABS: RBC URINE 4 /hpf (0-3); URINE BACTERIA RARE (<OCC); URINE BILIRUBIN NEGATIVE (NEGATIVE); URINE BLOOD 1+ (NEGATIVE); URINE COLOR Straw (YELLOW); URINE GLUCOSE (UA) 2+ mg/dL (Normal); URINE KETONE NEGATIVE (NEGATIVE); URINE LEUKOCYTE ESTERASE NEG Leu/uL (Negative); URINE PROTEIN 3+ mg/dL (NEGATIVE); URINE UROBILINOGEN NORMAL mg/dL (0.2-1.0)
[2017-09-15 12:34] LABS: WBC URINE 3 /hpf (0-5)
[2017-09-15] MEDS: Potassium Chloride 20 mEq ER Tab PO SCH ×2 (12:40→21:06)
--- NOTE | 2017-09-15 16:46 | CP.PCM.CON ---
History of Present Illness - History of Present Illness History of Present Illness: Surgery: Dr. Patino CC: L foot wound HPI: 27M w. pmh of type I DM initially presented to ED for AMS 2/2 hypoglycemia. Surgery was consulted for non-healing L foot wound. Pt states that he has had wound on his L foot for about 2 weeks. He states that he has been doing local wound care daily w. neosporin. Despite this, there has been no improvement. He states that the wound has been getting deeper, it is foul smelling, and occasionally drains pus. He denies any pain in the foot. He denies neuropathy. He denies F/C. Back in February/March he states that he had a more serious infection in his L leg [place] [facility] [place] in [place] hospital for about 1 month. 12 Pt ROS negative unless specified PMH: Type I DM PSH: debridement L leg for infection Meds: MAR reviewed NKDA Social: No ETOH/tobacco, +marijuana Fhx: Non-contributory Past Patient History - Infectious Disease Hx of Infectious Diseases: None - Tetanus Immunizations Tetanus Immunization: Unknown - Past Medical History & Family History Past Medical History?: Yes - Past Social History Smoking Status: Never Smoked - CARDIAC Hx Hypercholesterolemia: No Hx Hypertension: Yes Hx Mitral Valve Prolapse: No Hx Pacemaker: No Hx Peripheral Edema: No - PULMONARY Hx Asthma: No Hx Bronchitis: No Hx Chronic Obstructive Pulmonary Disease (COPD): No Hx Emphysema: No Hx Pneumonia: No Hx Pulmonary Embolism: No Hx Sleep Apnea: No - NEUROLOGICAL Hx Alzheimer's Disease: No Hx Dementia: No Hx Migraine: No Hx Multiple Sclerosis: No Hx Parkinson's Disease: No Hx Seizures: No Hx Transient Ischemic Attacks (TIA): No - HEENT Hx HEENT Problems: No Hx Blind: No Hx Cataracts: No Hx Deafness: No Hx Difficulty Chewing: No Hx Epistaxis: No Hx Glaucoma: No Hx Macular Degeneration: No - RENAL Hx Chronic Kidney Disease: No Hx Kidney Stones: No - ENDOCRINE/METABOLIC Hx Hyperthyroidism: No Hx Hypothyroidism: No - HEMATOLOGICAL/ONCOLOGICAL Hx Anemia: No Hx Human Immunodeficiency Virus (HIV): No Hx Sickle Cell Disease: No - INTEGUMENTARY Hx Dermatological Problems: Yes Hx Eczema: Yes - MUSCULOSKELETAL/RHEUMATOLOGICAL Hx Arthritis: No Hx Fractures: Yes ( shoulder 2014) Hx Osteoporosis: No Hx Rheumatoid Arthritis: No - GASTROINTESTINAL Hx Crohn's Disease: No Hx Diverticulitis: No Hx Gall Bladder Disease: No Hx Gastritis: No Hx Pancreatitis: No - GENITOURINARY/GYNECOLOGICAL Hx Sexually Transmitted Disorders: No - PSYCHIATRIC Hx Anxiety: No Hx Bipolar Disorder: No Hx Depression: No Hx Paranoia: No Hx Post Traumatic Stress Disorder: No Hx Schizophrenia: No Hx Substance Use: Yes (marijuana) - SURGICAL HISTORY Hx Appendectomy: No Hx Carotid Endarterectomy: No Hx Cholecystectomy: No Hx Coronary Artery Bypass Graft: No Hx Coronary Stent: No Hx Tonsillectomy: No - ANESTHESIA Hx Anesthesia: No Hx Anesthesia Reactions: No Hx Malignant Hyperthermia: No Meds Allergies/Adverse Reactions: Allergies Allergy/AdvReac Type Severity Reaction Status Date / Time pollen extracts Allergy Intermediate ITCHING Verified 09/15/17 07:56 - Medications Medications: Current Medications Amlodipine Besylate (Norvasc) 5 mg PO DAILY [facility] Last Admin: 09/15/17 15:28 Dose: 5 mg Enalapril Maleate (Vasotec) 5 mg PO DAILY [facility] Last Admin: 09/15/17 15:28 Dose: 5 mg Enoxaparin Sodium (Lovenox) 30 mg SC DAILY [facility] Dextrose (Dextrose 10% In Water) 500 mls @ 10 mls/hr IV .Q24H [facility] Last Admin: 09/15/17 12:05 Dose: 10 mls/hr Potassium Chloride (K-Dur 20 Meq Er Tab) 40 meq PO Q12 [facility] Last Admin: 09/15/17 12:40 Dose: 40 meq Tramadol HCl (Ultram) 50 mg PO Q6H PRN PRN Reason: Pain, moderate (4-7) Last Admin: 09/15/17 15:27 Dose: 50 mg Physical Exam - Constitutional Appears: Non-toxic, No Acute Distress - Head Exam Head Exam: ATRAUMATIC, NORMOCEPHALIC - Eye Exam Eye Exam: EOMI - ENT Exam ENT Exam: Mucous Membranes Moist - Neck Exam Neck exam: Positive for: Full Rom - Respiratory Exam Respiratory Exam: NORMAL BREATHING PATTERN. absent: Accessory Muscle Use, Respiratory Distress - GI/Abdominal Exam GI & Abdominal Exam: Soft. absent: Tenderness - Extremities Exam Additional comments: Dorsal medial portion of L foot over 1st MTPJ ~ 2.5x1cm wound, necrotic/ fibrinous base, +malodor, sensation/motor fxn intact - Neurological Exam Neurological exam: Alert, Oriented x3 Results - Vital Signs Recent Vital Signs: Last Vital Signs Temp 98 F 09/15/17 15:36 Pulse 108 H 09/15/17 15:36 Resp 18 09/15/17 15:36 BP 165/118 H 09/15/17 15:36 Pulse Ox 100 09/15/17 15:36 - Labs Result Diagrams: 09/15/17 08:15 09/15/17 08:43 Labs: Laboratory Results - last 24 hr 09/15/17 09/15/17 09/15/17 07:26 07:59 08:15 WBC 5.6 RBC 3.53 L Hgb 9.9 L Hct 29.5 L MCV 83.6 MCH 28.0 MCHC 33.5 RDW 15.5 H Plt Count 293 MPV 8.1 Neut % (Auto) 81.8 H Lymph % (Auto) 12.4 L Alfalfa % (Auto) 4.4 Eos % (Auto) 0.6 Baso % (Auto) 0.8 Neut # 4.6 Lymph # 0.7 L [place]alf[place] # 0.2 Eos # 0.0 Baso # 0.0 Sodium Potassium Chloride Carbon Dioxide Anion Gap BUN Creatinine Est GFR ( Amer) Est GFR (Non-Af Amer) POC Glucose (mg/dL) 32 L* 128 H Random Glucose Calcium Phosphorus Magnesium Total Bilirubin AST ALT Alkaline Phosphatase Total Creatine Kinase Troponin I Total Protein Albumin Globulin Albumin/Globulin Ratio Urine Color Urine Clarity Urine pH Ur Specific [place] Urine Protein Urine Glucose (UA) Urine Ketones Urine Blood Urine Nitrate Urine Bilirubin Urine Urobilinogen Ur Leukocyte Esterase Urine WBC (Auto) Urine RBC (Auto) Urine Bacteria Hyaline Casts 09/15/17 09/15/17 09/15/17 08:28 08:43 09:42 WBC RBC Hgb Hct MCV MCH MCHC RDW Plt Count MPV Neut % (Auto) Lymph % (Auto) Alfalfa % (Auto) Eos % (Auto) Baso % (Auto) Neut # Lymph # Alfalfa # Eos # Baso # Sodium 138 Potassium 3.3 L Chloride 98 Carbon Dioxide 33 H Anion Gap 10 BUN 14 Creatinine 0.8 Est GFR ( Amer) > 60 Est GFR (Non-Af Amer) > 60 POC Glucose (mg/dL) 83 123 H Random Glucose 81 Calcium 9.4 Phosphorus 3.9 Magnesium 1.7 Total Bilirubin 0.5 AST 34 ALT 35 Alkaline Phosphatase 134 H Total Creatine Kinase 340 H Troponin I < 0.0120 Total Protein 8.4 H Albumin 3.6 Globulin 4.8 H Albumin/Globulin Ratio 0.8 L Urine Color Urine Clarity Urine pH Ur Specific [place] Urine Protein Urine Glucose (UA) Urine Ketones Urine Blood Urine Nitrate Urine Bilirubin Urine Urobilinogen Ur Leukocyte Esterase Urine WBC (Auto) Urine RBC (Auto) Urine Bacteria Hyaline Casts 09/15/17 09/15/17 09/15/17 10:52 11:47 12:19 WBC RBC Hgb Hct MCV MCH MCHC RDW Plt Count MPV Neut % (Auto) Lymph % (Auto) Alfalfa % (Auto) Eos % (Auto) Baso % (Auto) Neut # Lymph # [place]alfa # Eos # Baso # Sodium Potassium Chloride Carbon Dioxide Anion Gap BUN Creatinine Est GFR ( Amer) Est GFR (Non-Af Amer) POC Glucose (mg/dL) 214 H 130 H Random Glucose Calcium Phosphorus Magnesium Total Bilirubin AST ALT Alkaline Phosphatase Total Creatine Kinase Troponin I Total Protein Albumin Globulin Albumin/Globulin Ratio Urine Color Straw Urine Clarity Clear Urine pH 7.0 Ur Specific [place] 1.010 Urine Protein 3+ H Urine Glucose (UA) 2+ H Urine Ketones Negative Urine Blood 1+ H Urine Nitrate Negative Urine Bilirubin Negative Urine Urobilinogen Normal Ur Leukocyte Esterase Neg Urine WBC (Auto) 3 Urine RBC (Auto) 4 H Urine Bacteria Rare Hyaline Casts 3-5 H 09/15/17 14:31 WBC RBC Hgb Hct MCV MCH MCHC RDW Plt Count MPV Neut % (Auto) Lymph % (Auto) Alfalfa % (Auto) Eos % (Auto) Baso % (Auto) Neut # Lymph # [place]alfa # Eos # Baso # Sodium Potassium Chloride Carbon Dioxide Anion Gap BUN Creatinine Est GFR ( Amer) Est GFR (Non-Af Amer) POC Glucose (mg/dL) 146 H Random Glucose Calcium Phosphorus Magnesium Total Bilirubin AST ALT Alkaline Phosphatase Total Creatine Kinase Troponin I Total Protein Albumin Globulin Albumin/Globulin Ratio Urine Color Urine Clarity Urine pH Ur Specific [place] Urine Protein Urine Glucose (UA) Urine Ketones Urine Blood Urine Nitrate Urine Bilirubin Urine Urobilinogen Ur Leukocyte Esterase Urine WBC (Auto) Urine RBC (Auto) Urine Bacteria Hyaline Casts Assessment & Plan - Assessment and Plan (Free Text) Assessment: 27M w. non-healing wound to L foot -F/U ABIs/PVRs -local wound care gala moscoso -d/w attending Steve PGY3
[2017-09-15] MEDS ORDERED: Pneumococcal 23-Valent Vaccine IM ONE (17:07)
--- NOTE | 2017-09-15 19:05 | CP.PCM.HP ---
History of Present Illness - History of Present Illness History of Present Illness: A 27-year-old male with PMHHTN and type 1 diabetes mellitus with recurrent episodes of hypoglycemia presents to the ER by EMS for C/Oaltered mental status Patient was found in his apartment by the relatives. with incontinence of urine and feces, they new these symptoms as they were consistent with previous episode of hypoglycemia and so they called EMS. Fingerstick blood glucose done by the reduce was 22 mg/dL and so glucose was given orally. When EMS arrived fingerstick glucose was 32. Patient was given intravenous 50% dextrose and he regained consciousness. Patient denies any recent change in medications or reduction reduced oral intake or any fever or other signs of infection. Patient is currently taking Levemir and NovoLog. Patient also complains of raw area on left foot for 2 weeks. He has been doing local wound care with Neosporin ointment. Past Patient History - Infectious Disease Hx of Infectious Diseases: None - Tetanus Immunizations Tetanus Immunization: Unknown - Past Medical History & Family History Past Medical History?: Yes - Past Social History Smoking Status: Never Smoked - CARDIAC Hx Hypercholesterolemia: No Hx Hypertension: Yes Hx Mitral Valve Prolapse: No Hx Pacemaker: No Hx Peripheral Edema: No - PULMONARY Hx Asthma: No Hx Bronchitis: No Hx Chronic Obstructive Pulmonary Disease (COPD): No Hx Emphysema: No Hx Pneumonia: No Hx Pulmonary Embolism: No Hx Sleep Apnea: No - NEUROLOGICAL Hx Alzheimer's Disease: No Hx Dementia: No Hx Migraine: No Hx Multiple Sclerosis: No Hx Parkinson's Disease: No Hx Seizures: No Hx Transient Ischemic Attacks (TIA): No - HEENT Hx HEENT Problems: No Hx Blind: No Hx Cataracts: No Hx Deafness: No Hx Difficulty Chewing: No Hx Epistaxis: No Hx Glaucoma: No Hx Macular Degeneration: No - RENAL Hx Chronic Kidney Disease: No Hx Kidney Stones: No - ENDOCRINE/METABOLIC Hx Hyperthyroidism: No Hx Hypothyroidism: No - HEMATOLOGICAL/ONCOLOGICAL Hx Anemia: No Hx Human Immunodeficiency Virus (HIV): No Hx Sickle Cell Disease: No - INTEGUMENTARY Hx Dermatological Problems: Yes Hx Eczema: Yes - MUSCULOSKELETAL/RHEUMATOLOGICAL Hx Arthritis: No Hx Fractures: Yes (2014) Hx Osteoporosis: No Hx Rheumatoid Arthritis: No - GASTROINTESTINAL Hx Crohn's Disease: No Hx Diverticulitis: No Hx Gall Bladder Disease: No Hx Gastritis: No Hx Pancreatitis: No - GENITOURINARY/GYNECOLOGICAL Hx Sexually Transmitted Disorders: No - PSYCHIATRIC Hx Anxiety: No Hx Bipolar Disorder: No Hx Depression: No Hx Paranoia: No Hx Post Traumatic Stress Disorder: No Hx Schizophrenia: No Hx Substance Use: Yes (marijuana) - SURGICAL HISTORY Hx Appendectomy: No Hx Carotid Endarterectomy: No Hx Cholecystectomy: No Hx Coronary Artery Bypass Graft: No Hx Coronary Stent: No Hx Tonsillectomy: No - ANESTHESIA Hx Anesthesia: No Hx Anesthesia Reactions: No Hx Malignant Hyperthermia: No Meds Home Medications: Home Medication List Medication Instructions Recorded Confirmed Type Acetaminophen [Tylenol 325mg tab] 650 mg PO Q6 PRN tab 10/02/17 Rx Enalapril Maleate [Vasotec] 10 mg PO DAILY tab 10/02/17 Rx Insulin Aspart, Recombinant 0 unit SC ACHS unit 10/02/17 Rx [Novolog] Insulin Aspart, Recombinant 8 unit SC ONCE unit 10/02/17 Rx [Novolog] Insulin Glargine, Recombina 14 unit SC HS unit 10/02/17 Rx [Lantus] Piperacill/Tazo 3.375gm in Dex 3.375 gm IVPB Q6H 14 Days bag 10/02/17 Rx [Zosyn 3.375 Gm IV] Saccharomyces Boulardi [Florastor] 250 mg PO BID cap 10/02/17 Rx amLODIPine [Norvasc] 10 mg PO DAILY tab 10/02/17 Rx traMADol [Ultram] 50 mg PO Q6H PRN tab 10/02/17 Rx Allergies/Adverse Reactions: Allergies Allergy/AdvReac Type Severity Reaction Status Date / Time pollen extracts Allergy Intermediate ITCHING Verified 09/15/17 07:56 Physical Exam - Constitutional Appears: Well - Head Exam Head Exam: ATRAUMATIC, NORMAL INSPECTION, NORMOCEPHALIC - Eye Exam Eye Exam: EOMI, Normal appearance, PERRL Pupil Exam: NORMAL ACCOMODATION, PERRL - ENT Exam ENT Exam: Mucous Membranes Moist, Normal Exam - Neck Exam Neck exam: Positive for: Normal Inspection - Respiratory Exam Respiratory Exam: Decreased Breath Sounds - Cardiovascular Exam Cardiovascular Exam: REGULAR RHYTHM, +S1, +S2 - GI/Abdominal Exam GI & Abdominal Exam: Diminished Bowel Sounds, Soft - Rectal Exam Rectal Exam: Deferred Results - Vital Signs Recent Vital Signs: Last Vital Signs Temp 98 F 09/15/17 15:36 Pulse 108 H 09/15/17 15:36 Resp 18 09/15/17 15:36 BP 165/118 H 09/15/17 15:36 Pulse Ox 100 09/15/17 15:36 - Labs Result Diagrams: 10/02/17 07:06 10/02/17 07:06 Labs: Laboratory Results - last 24 hr 09/15/17 09/15/17 09/15/17 07:26 07:59 08:15 WBC 5.6 RBC 3.53 L Hgb 9.9 L Hct 29.5 L MCV 83.6 MCH 28.0 MCHC 33.5 RDW 15.5 H Plt Count 293 MPV 8.1 Neut % (Auto) 81.8 H Lymph % (Auto) 12.4 L Moore % (Auto) 4.4 Eos % (Auto) 0.6 Baso % (Auto) 0.8 Neut # 4.6 Lymph # 0.7 L Moore # 0.2 Eos # 0.0 Baso # 0.0 Sodium Potassium Chloride Carbon Dioxide Anion Gap BUN Creatinine Est GFR ( Amer) Est GFR (Non-Af Amer) POC Glucose (mg/dL) 32 L* 128 H Random Glucose Calcium Phosphorus Magnesium Total Bilirubin AST ALT Alkaline Phosphatase Total Creatine Kinase Troponin I Total Protein Albumin Globulin Albumin/Globulin Ratio Urine Color Urine Clarity Urine pH Ur Specific [place] Urine Protein Urine Glucose (UA) Urine Ketones Urine Blood Urine Nitrate Urine Bilirubin Urine Urobilinogen Ur Leukocyte Esterase Urine WBC (Auto) Urine RBC (Auto) Urine Bacteria Hyaline Casts 09/15/17 09/15/17 09/15/17 08:28 08:43 09:42 WBC RBC Hgb Hct MCV MCH MCHC RDW Plt Count MPV Neut % (Auto) Lymph % (Auto) Moore % (Auto) Eos % (Auto) Baso % (Auto) Neut # Lymph # Moore # Eos # Baso # Sodium 138 Potassium 3.3 L Chloride 98 Carbon Dioxide 33 H Anion Gap 10 BUN 14 Creatinine 0.8 Est GFR ( Amer) > 60 Est GFR (Non-Af Amer) > 60 POC Glucose (mg/dL) 83 123 H Random Glucose 81 Calcium 9.4 Phosphorus 3.9 Magnesium 1.7 Total Bilirubin 0.5 AST 34 ALT 35 Alkaline Phosphatase 134 H Total Creatine Kinase 340 H Troponin I < 0.0120 Total Protein 8.4 H Albumin 3.6 Globulin 4.8 H Albumin/Globulin Ratio 0.8 L Urine Color Urine Clarity Urine pH Ur Specific [place] Urine Protein Urine Glucose (UA) Urine Ketones Urine Blood Urine Nitrate Urine Bilirubin Urine Urobilinogen Ur Leukocyte Esterase Urine WBC (Auto) Urine RBC (Auto) Urine Bacteria Hyaline Casts 09/15/17 09/15/17 09/15/17 10:52 11:47 12:19 WBC RBC Hgb Hct MCV MCH MCHC RDW Plt Count MPV Neut % (Auto) Lymph % (Auto) Moore % (Auto) Eos % (Auto) Baso % (Auto) Neut # Lymph # [place] # Eos # Baso # Sodium Potassium Chloride Carbon Dioxide Anion Gap BUN Creatinine Est GFR ( Amer) Est GFR (Non-Af Amer) POC Glucose (mg/dL) 214 H 130 H Random Glucose Calcium Phosphorus Magnesium Total Bilirubin AST ALT Alkaline Phosphatase Total Creatine Kinase Troponin I Total Protein Albumin Globulin Albumin/Globulin Ratio Urine Color Straw Urine Clarity Clear Urine pH 7.0 Ur Specific [place] 1.010 Urine Protein 3+ H Urine Glucose (UA) 2+ H Urine Ketones Negative Urine Blood 1+ H Urine Nitrate Negative Urine Bilirubin Negative Urine Urobilinogen Normal Ur Leukocyte Esterase Neg Urine WBC (Auto) 3 Urine RBC (Auto) 4 H Urine Bacteria Rare Hyaline Casts 3-5 H 09/15/17 09/15/17 14:31 17:22 WBC RBC Hgb Hct MCV MCH MCHC RDW Plt Count MPV Neut % (Auto) Lymph % (Auto) Moore % (Auto) Eos % (Auto) Baso % (Auto) Neut # Lymph # Moore # Eos # Baso # Sodium Potassium Chloride Carbon Dioxide Anion Gap BUN Creatinine Est GFR ( Amer) Est GFR (Non-Af Amer) POC Glucose (mg/dL) 146 H 58 L Random Glucose Calcium Phosphorus Magnesium Total Bilirubin AST ALT Alkaline Phosphatase Total Creatine Kinase Troponin I Total Protein Albumin Globulin Albumin/Globulin Ratio Urine Color Urine Clarity Urine pH Ur Specific [place] Urine Protein Urine Glucose (UA) Urine Ketones Urine Blood Urine Nitrate Urine Bilirubin Urine Urobilinogen Ur Leukocyte Esterase Urine WBC (Auto) Urine RBC (Auto) Urine Bacteria Hyaline Casts
[2017-09-16] MEDS ORDERED: Dextrose 50% SYRINGE Inj (50 ml) ONE (06:57)
--- NOTE | 2017-09-16 07:07 | CP.PCM.PN ---
<Hilary Frausto - Last Filed: 09/16/17 15:08> Subjective - Date & Time of Evaluation Date of Evaluation: 09/16/17 Time of Evaluation: 09:30 - Subjective Subjective: PGY 2 Medicine Note- Dr. Ruiz's service 27 year old male with past medical history significant for diabetes mellitus and hypertension initially presented following a hypoglycemic and then seizure event on 09/15 while at home. Patient states that he was not sure of the events that happened after the seizure event. His cousin informed him that he was " out of it" at the time. Patient admits to an ulceration on his foot which he firs tnoted 2 weeks prior. He states that the wound had not been healing. He denies subjective fevers or chills, chest pain, palpitations, headaches, lightheadedness at the time of evaluation. PMHx- as stated above PSHx- achilles surgery Fam Hx- Maternal and paternal grandmother with diabetes; Mother with HTN Social- admits to recreational marijuana use; smoked cigarettes years ago; denies alcohol use. Meds- Novolog, Levemir, Enalapril daily, Amlodipine BID Allergies- Pollen Today patient was seen and examined in no acute distress. He apparently had a hypoglycemic overnight which responded to food and medication administration. Objective - Vital Signs/Intake and Output Vital Signs (last 24 hours): Temp Pulse Resp BP Pulse Ox 98.2 F 90 20 195/95 H 99 09/16/17 04:18 09/16/17 04:18 09/16/17 04:18 09/16/17 04:18 09/16/17 04:18 Intake and Output: 09/16/17 09/16/17 06:59 18:59 Intake Total 580 Balance 580 - Medications Medications: Current Medications Amlodipine Besylate (Norvasc) 5 mg PO DAILY [facility] Last Admin: 09/15/17 15:28 Dose: 5 mg Enalapril Maleate (Vasotec) 5 mg PO DAILY [facility] Last Admin: 09/15/17 15:28 Dose: 5 mg Enoxaparin Sodium (Lovenox) 30 mg SC DAILY [facility] Dextrose (Dextrose 10% In Water) 500 mls @ 10 mls/hr IV .Q24H [facility] Last Admin: 09/15/17 12:05 Dose: 10 mls/hr Ondansetron HCl (Zofran Inj) 4 mg IVP Q6H PRN PRN Reason: Nausea/Vomiting Last Admin: 09/15/17 20:51 Dose: 4 mg Pneumococcal Polyvalent Vaccine (Pneumovax 23 Vaccine) 0.5 ml IM .ONCE ONE Stop: 09/18/17 10:01 Potassium Chloride (K-Dur 20 Meq Er Tab) 40 meq PO Q12 [facility] Last Admin: 09/15/17 21:06 Dose: 40 meq Tramadol HCl (Ultram) 50 mg PO Q6H PRN PRN Reason: Pain, moderate (4-7) Last Admin: 09/15/17 15:27 Dose: 50 mg - Labs Labs: 09/15/17 08:15 09/15/17 08:43 - Constitutional Appears: Non-toxic, No Acute Distress - Head Exam Head Exam: ATRAUMATIC, NORMAL INSPECTION, NORMOCEPHALIC - Eye Exam Eye Exam: EOMI, Normal appearance, PERRL Pupil Exam: NORMAL ACCOMODATION - ENT Exam ENT Exam: Mucous Membranes Moist - Neck Exam Neck Exam: Full ROM - Respiratory Exam Respiratory Exam: NORMAL BREATHING PATTERN. absent: Wheezes - Cardiovascular Exam Cardiovascular Exam: +S1, +S2 - GI/Abdominal Exam GI & Abdominal Exam: Soft, Normal Bowel Sounds - Extremities Exam Extremities Exam: Full ROM Additional comments: left lower extremity wrapped in bandages; no drainage appreciated, clean wrapping. - Neurological Exam Neurological Exam: Alert, Awake, Oriented x3 - Psychiatric Exam Psychiatric exam: Normal Affect, Normal Mood - Skin Skin Exam: Dry, Warm Assessment and Plan (1) Hypoglycemia Assessment & Plan: On D10 % at this time Hold anti-hyperglycemic meds at this time. Patient had a seizure secondary to hypoglycemia event and hit hsi head on the table as reported by cousin. Head CT ordered- no acute intracranial abnormality Status: Acute (2) Diabetic foot ulcer Assessment & Plan: Podiatry, ID and surgery on the case On Zosyn XRAY imaging- no apparent signs of osteomyelitis. Much less conspicuous gas in the anterior soft tissues- tibiotalar region Wound care dressings, Tramadol for pain F/U recommendations Status: Chronic (3) Diabetes Assessment & Plan: F/U A1c and accuchecks Will monitor sugars overnight. Since patient keeps dropping quite low, will hold off on insulin sliding scale. If he has another hypoglycemic event overnight , despite not receiving any insulin therapy- will need to consult Endocrinology Status: Chronic (4) History of hypertension Assessment & Plan: On Norvasc and Enalapril Status: Chronic (5) Prophylactic measure Assessment & Plan: Lovenox daily SCDs contraindicated due to suspicions of peripheral ischemia- Will follow up RYANNE Status: Acute - Assessment and Plan (Free Text) Assessment: Discussed with attending. All management and planning per Dr. Willow Ruiz <Jolanta Ruiz - Last Filed: 09/30/17 12:42> Objective - Vital Signs/Intake and Output Vital Signs (last 24 hours): Temp Pulse Resp BP Pulse Ox 97.5 F L 86 20 108/71 98 09/30/17 08:04 09/30/17 08:04 09/30/17 08:04 09/30/17 09:57 09/30/17 08:04 Intake and Output: 09/30/17 09/30/17 06:59 18:59 Intake Total 600 Output Total 400 Balance 200 - Medications Medications: Current Medications Acetaminophen (Tylenol 325mg Tab) 650 mg PO Q6 PRN PRN Reason: Pain, Mild (1-3) Last Admin: 09/30/17 00:48 Dose: 650 mg Amlodipine Besylate (Norvasc) 10 mg PO DAILY [facility] Last Admin: 09/30/17 09:54 Dose: 10 mg Enalapril Maleate (Vasotec) 10 mg PO DAILY [facility] Last Admin: 09/30/17 09:57 Dose: 10 mg Enoxaparin Sodium (Lovenox) 30 mg SC DAILY [facility] Last Admin: 09/30/17 09:55 Dose: 30 mg Piperacillin Sod/Tazobactam Sod (Zosyn 3.375 Gm Iv Premix) 3.375 gm in 50 mls @ 100 mls/hr IVPB Q6H [facility] Last Admin: 09/30/17 12:31 Dose: 100 mls/hr Insulin Aspart (Novolog) 0 unit SC ACHS [facility] PRN Reason: Protocol Last Admin: 09/30/17 12:30 Dose: 4 unit Insulin Glargine (Lantus) 14 unit SC HS [facility] Last Admin: 09/29/17 21:27 Dose: 14 units Ondansetron HCl (Zofran Inj) 4 mg IVP Q6H PRN PRN Reason: Nausea/Vomiting Last Admin: 09/29/17 17:10 Dose: 4 mg Saccharomyces Boulardii (Florastor) 250 mg PO BID [facility] Last Admin: 09/30/17 09:54 Dose: 250 mg Tramadol HCl (Ultram) 50 mg PO Q6H PRN PRN Reason: Pain, moderate (4-7) Last Admin: 09/29/17 14:37 Dose: 50 mg - Labs Labs: 09/26/17 07:29 09/26/17 07:29 PT 10.7 SECONDS (9.7-12.2) 09/24/17 05:17 INR 1.0 09/24/17 05:17 APTT 28 SECONDS (21-34) 09/24/17 05:17 Attending/Attestation - Attestation I have personally seen and examined this patient.: Yes I have fully participated in the care of the patient.: Yes I have reviewed all pertinent clinical information, including history, physical exam and plan: Yes
--- NOTE | 2017-09-16 08:31 | CP.PCM.CON ---
<Marah Ramos - Last Filed: 09/16/17 10:04> History of Present Illness - History of Present Illness History of Present Illness: 27 yo male patient with PMHx of DM type I was seen at bedside after request for podiatry consultation concerning non-healing wounds to Left foot. Patient states he has two open wounds to left foot. One in his heel and one on dorsal aspect of Left foot. He had a wound debridement of Left heel a few months ago at a surgery center by a doctor he cannot recall the name. He states that the wound to dorsal aspect of left foot is a new wound which he first noticed more than 2 weeks ago. Patient denies of any pain to the wounds. Patient denies of any N/V/F/C or SOB today Review of Systems - Constitutional Constitutional: As Per HPI Past Patient History - Infectious Disease Hx of Infectious Diseases: None - Tetanus Immunizations Tetanus Immunization: Unknown - Past Medical History & Family History Past Medical History?: Yes - Past Social History Smoking Status: Never Smoked - CARDIAC Hx Hypercholesterolemia: No Hx Hypertension: Yes Hx Mitral Valve Prolapse: No Hx Pacemaker: No Hx Peripheral Edema: No - PULMONARY Hx Asthma: No Hx Bronchitis: No Hx Chronic Obstructive Pulmonary Disease (COPD): No Hx Emphysema: No Hx Pneumonia: No Hx Pulmonary Embolism: No Hx Sleep Apnea: No - NEUROLOGICAL Hx Alzheimer's Disease: No Hx Dementia: No Hx Migraine: No Hx Multiple Sclerosis: No Hx Parkinson's Disease: No Hx Seizures: No Hx Transient Ischemic Attacks (TIA): No - HEENT Hx HEENT Problems: No Hx Blind: No Hx Cataracts: No Hx Deafness: No Hx Difficulty Chewing: No Hx Epistaxis: No Hx Glaucoma: No Hx Macular Degeneration: No - RENAL Hx Chronic Kidney Disease: No Hx Kidney Stones: No - ENDOCRINE/METABOLIC Hx Hyperthyroidism: No Hx Hypothyroidism: No - HEMATOLOGICAL/ONCOLOGICAL Hx Anemia: No Hx Human Immunodeficiency Virus (HIV): No Hx Sickle Cell Disease: No - INTEGUMENTARY Hx Dermatological Problems: Yes Hx Eczema: Yes - MUSCULOSKELETAL/RHEUMATOLOGICAL Hx Arthritis: No Hx Fractures: Yes (R shoulder 2015) Hx Osteoporosis: No Hx Rheumatoid Arthritis: No - GASTROINTESTINAL Hx Crohn's Disease: No Hx Diverticulitis: No Hx Gall Bladder Disease: No Hx Gastritis: No Hx Pancreatitis: No - GENITOURINARY/GYNECOLOGICAL Hx Sexually Transmitted Disorders: No - PSYCHIATRIC Hx Anxiety: No Hx Bipolar Disorder: No Hx Depression: No Hx Paranoia: No Hx Post Traumatic Stress Disorder: No Hx Schizophrenia: No Hx Substance Use: Yes (marijuana) - SURGICAL HISTORY Hx Appendectomy: No Hx Carotid Endarterectomy: No Hx Cholecystectomy: No Hx Coronary Artery Bypass Graft: No Hx Coronary Stent: No Hx Tonsillectomy: No - ANESTHESIA Hx Anesthesia: No Hx Anesthesia Reactions: No Hx Malignant Hyperthermia: No Meds Allergies/Adverse Reactions: Allergies Allergy/AdvReac Type Severity Reaction Status Date / Time pollen extracts Allergy Intermediate ITCHING Verified 09/15/17 07:56 - Medications Medications: Current Medications Amlodipine Besylate (Norvasc) 5 mg PO DAILY [facility] Last Admin: 09/15/17 15:28 Dose: 5 mg Enalapril Maleate (Vasotec) 5 mg PO DAILY [facility] Last Admin: 09/15/17 15:28 Dose: 5 mg Enoxaparin Sodium (Lovenox) 30 mg SC DAILY [facility] Dextrose (Dextrose 10% In Water) 500 mls @ 10 mls/hr IV .Q24H [facility] Last Admin: 09/15/17 12:05 Dose: 10 mls/hr Ondansetron HCl (Zofran Inj) 4 mg IVP Q6H PRN PRN Reason: Nausea/Vomiting Last Admin: 09/15/17 20:51 Dose: 4 mg Pneumococcal Polyvalent Vaccine (Pneumovax 23 Vaccine) 0.5 ml IM .ONCE ONE Stop: 09/18/17 10:01 Potassium Chloride (K-Dur 20 Meq Er Tab) 40 meq PO Q12 [facility] Last Admin: 09/15/17 21:06 Dose: 40 meq Tramadol HCl (Ultram) 50 mg PO Q6H PRN PRN Reason: Pain, moderate (4-7) Last Admin: 09/15/17 15:27 Dose: 50 mg Physical Exam - Constitutional Appears: Well, Non-toxic, No Acute Distress - Head Exam Head Exam: ATRAUMATIC - Extremities Exam Additional comments: Left lower extremity exam DERM: Open wound noted to dorsal aspect of left foot 1st metatarsal diaphysis measuring 3cm x 2cm x 1.5cm. EHL tendon exposed, PTB. Wound base appears mostly fibrotic. Mild purulent drainage noted. Mal-odor noted. Erythema noted around the wound. Consistent with Cantu II at the least. Another open wound noted to posterior aspect of Left heel measuring 4.5cm x 3cm x 0.2cm with granular base. Wound appears superficial with no drainage, no mal- odor, no purulent drainage. No PTB VASC: Palpable DP and PT noted bilaterally 1/4. [employer]IC[employer] PRACTITIONER less than 3 seconds to all digits ORTHO: No pain on palpation to left foot NEURO: Gross sensation diminished secondary to diabetic neuropathy - Neurological Exam Neurological exam: Alert, Oriented x3 - Psychiatric Exam Psychiatric exam: Normal Affect, Normal Mood - Skin Skin Exam: Normal Color, Warm Results - Vital Signs Recent Vital Signs: Last Vital Signs Temp 98.0 F 09/16/17 08:21 Pulse 97 H 09/16/17 08:21 Resp 20 09/16/17 08:21 BP 172/125 H 09/16/17 08:21 Pulse Ox 99 09/16/17 04:18 - Labs Result Diagrams: 09/15/17 08:15 09/15/17 08:43 Labs: Laboratory Results - last 24 hr 09/15/17 09/15/17 09/15/17 08:28 08:43 09:42 Sodium 138 Potassium 3.3 L Chloride 98 Carbon Dioxide 33 H Anion Gap 10 BUN 14 Creatinine 0.8 Est GFR ( Amer) > 60 Est GFR (Non-Af Amer) > 60 POC Glucose (mg/dL) 83 123 H Random Glucose 81 Calcium 9.4 Phosphorus 3.9 Magnesium 1.7 Total Bilirubin 0.5 AST 34 ALT 35 Alkaline Phosphatase 134 H Total Creatine Kinase 340 H Troponin I < 0.0120 Total Protein 8.4 H Albumin 3.6 Globulin 4.8 H Albumin/Globulin Ratio 0.8 L Urine Color Urine Clarity Urine pH Ur Specific [place] Urine Protein Urine Glucose (UA) Urine Ketones Urine Blood Urine Nitrate Urine Bilirubin Urine Urobilinogen Ur Leukocyte Esterase Urine WBC (Auto) Urine RBC (Auto) Urine Bacteria Hyaline Casts 09/15/17 09/15/17 09/15/17 10:52 11:47 12:19 Sodium Potassium Chloride Carbon Dioxide Anion Gap BUN Creatinine Est GFR ( Amer) Est GFR (Non-Af Amer) POC Glucose (mg/dL) 214 H 130 H Random Glucose Calcium Phosphorus Magnesium Total Bilirubin AST ALT Alkaline Phosphatase Total Creatine Kinase Troponin I Total Protein Albumin Globulin Albumin/Globulin Ratio Urine Color Straw Urine Clarity Clear Urine pH 7.0 Ur Specific [place] 1.010 Urine Protein 3+ H Urine Glucose (UA) 2+ H Urine Ketones Negative Urine Blood 1+ H Urine Nitrate Negative Urine Bilirubin Negative Urine Urobilinogen Normal Ur Leukocyte Esterase Neg Urine WBC (Auto) 3 Urine RBC (Auto) 4 H Urine Bacteria Rare Hyaline Casts 3-5 H 09/15/17 09/15/17 09/15/17 14:31 17:22 21:16 Sodium Potassium Chloride Carbon Dioxide Anion Gap BUN Creatinine Est GFR ( Amer) Est GFR (Non-Af Amer) POC Glucose (mg/dL) 146 H 58 L 139 H Random Glucose Calcium Phosphorus Magnesium Total Bilirubin AST ALT Alkaline Phosphatase Total Creatine Kinase Troponin I Total Protein Albumin Globulin Albumin/Globulin Ratio Urine Color Urine Clarity Urine pH Ur Specific [place] Urine Protein Urine Glucose (UA) Urine Ketones Urine Blood Urine Nitrate Urine Bilirubin Urine Urobilinogen Ur Leukocyte Esterase Urine WBC (Auto) Urine RBC (Auto) Urine Bacteria Hyaline Casts 09/15/17 09/16/17 09/16/17 23:56 02:00 06:29 Sodium Potassium Chloride Carbon Dioxide Anion Gap BUN Creatinine Est GFR ( Amer) Est GFR (Non-Af Amer) POC Glucose (mg/dL) 135 H 89 65 Random Glucose Calcium Phosphorus Magnesium Total Bilirubin AST ALT Alkaline Phosphatase Total Creatine Kinase Troponin I Total Protein Albumin Globulin Albumin/Globulin Ratio Urine Color Urine Clarity Urine pH Ur Specific [place] Urine Protein Urine Glucose (UA) Urine Ketones Urine Blood Urine Nitrate Urine Bilirubin Urine Urobilinogen Ur Leukocyte Esterase Urine WBC (Auto) Urine RBC (Auto) Urine Bacteria Hyaline Casts 09/16/17 09/16/17 06:52 07:08 Sodium Potassium Chloride Carbon Dioxide Anion Gap BUN Creatinine Est GFR ( Amer) Est GFR (Non-Af Amer) POC Glucose (mg/dL) 44 L 326 H Random Glucose Calcium Phosphorus Magnesium Total Bilirubin AST ALT Alkaline Phosphatase Total Creatine Kinase Troponin I Total Protein Albumin Globulin Albumin/Globulin Ratio Urine Color Urine Clarity Urine pH Ur Specific [place] Urine Protein Urine Glucose (UA) Urine Ketones Urine Blood Urine Nitrate Urine Bilirubin Urine Urobilinogen Ur Leukocyte Esterase Urine WBC (Auto) Urine RBC (Auto) Urine Bacteria Hyaline Casts Assessment & Plan - Assessment and Plan (Free Text) Assessment: 27 yo male patient with type I DM presenting with diabetic ulcerations to Left foot Plan: Patient was seen, evaluated at bedside discussed in detail with attending Dr. Myles labs and vitals reviewed; 5.6WBC, afebrile Xray reveals no sign of OM Dressings left intact F/U ABIs/PVRs WCX pending Podiatry will continue to follow inhouse <Manny Myles - Last Filed: 09/16/17 12:50> Meds - Medications Medications: Current Medications Amlodipine Besylate (Norvasc) 5 mg PO DAILY [facility] Last Admin: 09/16/17 09:15 Dose: 5 mg Enalapril Maleate (Vasotec) 5 mg PO DAILY [facility] Last Admin: 09/16/17 09:12 Dose: 5 mg Enoxaparin Sodium (Lovenox) 30 mg SC DAILY [facility] Last Admin: 09/16/17 09:15 Dose: 30 mg Dextrose (Dextrose 10% In Water) 500 mls @ 10 mls/hr IV .Q24H [facility] Last Admin: 09/15/17 12:05 Dose: 10 mls/hr Piperacillin Sod/Tazobactam (Sod 3.375 gm/ Sodium Chloride) 100 mls @ 200 mls/ hr IVPB Q6H [facility] Ondansetron HCl (Zofran Inj) 4 mg IVP Q6H PRN PRN Reason: Nausea/Vomiting Last Admin: 09/15/17 20:51 Dose: 4 mg Pneumococcal Polyvalent Vaccine (Pneumovax 23 Vaccine) 0.5 ml IM .ONCE ONE Stop: 09/18/17 10:01 Potassium Chloride (K-Dur 20 Meq Er Tab) 40 meq PO Q12 [facility] Last Admin: 09/16/17 09:15 Dose: 40 meq Tramadol HCl (Ultram) 50 mg PO Q6H PRN PRN Reason: Pain, moderate (4-7) Last Admin: 09/15/17 15:27 Dose: 50 mg Results - Vital Signs Recent Vital Signs: Last Vital Signs Temp 98.0 F 09/16/17 08:21 Pulse 96 H 09/16/17 11:29 Resp 20 09/16/17 08:21 BP 160/110 H 09/16/17 09:12 Pulse Ox 99 09/16/17 04:18 - Labs Result Diagrams: 09/15/17 08:15 09/15/17 08:43 Labs: Laboratory Results - last 24 hr 09/15/17 09/15/17 09/15/17 14:31 17:22 21:16 POC Glucose (mg/dL) 146 H 58 L 139 H 09/15/17 09/16/17 09/16/17 23:56 02:00 06:29 POC Glucose (mg/dL) 135 H 89 65 09/16/17 09/16/17 09/16/17 06:52 07:08 12:06 POC Glucose (mg/dL) 44 L 326 H 277 H Attending/Attestation - Attestation I have personally seen and examined this patient.: Yes I have fully participated in the care of the patient.: Yes I have reviewed all pertinent clinical information: Yes Notes (Text): 09/16/17 12:49 Will order wound care for left foot. Pt is being worked up by Dr. Patino. Will decide on plan after circ status is established. Thanks for consult.
[2017-09-16] MEDS: Potassium Chloride 20 mEq ER Tab PO SCH ×2 (09:15→21:19)
[2017-09-16] MEDS: Enoxaparin 30 mg Syringe SC SCH (09:15)
--- NOTE | 2017-09-16 09:46 | RAD ---
PROCEDURE: Left Foot Radiographs. HISTORY: rule out gas COMPARISON: None. FINDINGS: BONES: Hammertoe orientations. . No fracture. No osseous destruction. No periosteal reaction JOINTS: Normal. SOFT TISSUES: There is dorsal and medial overlying bandage -medial 1st metatarsal head and shaft levels. Here mottled soft tissue gas is present. No deeper periosteal reaction, cortical interruption or cortical destruction of the 1st metacarpal present. Trace gas anterior soft tissues tibiotalar low level also present. Bandaging over the posterior hindfoot soft tissues is well. Very faint vascular calcifications are present. . OTHER FINDINGS: None. IMPRESSION: Subcutaneous emphysema/cellulitis medial soft tissues -1st metatarsal level with overlying bandaging. No subjacent osteomyelitis radiographic features suggested Much less conspicuous gas in the anterior soft tissues-tibiotalar level. Correlate clinically
--- NOTE | 2017-09-16 11:34 | CP.PCM.PN ---
Subjective - Date & Time of Evaluation Date of Evaluation: 09/16/17 Time of Evaluation: 06:45 - Subjective Subjective: Vascular Surgery Dr. Patino Pt seen and examined @bedside. no events overnight. pt denies foot pain. denies F/C, N/V. tolerating diet. Objective - Vital Signs/Intake and Output Vital Signs (last 24 hours): Temp Pulse Resp BP Pulse Ox 98.0 F 97 H 20 160/110 H 99 09/16/17 08:21 09/16/17 08:21 09/16/17 08:21 09/16/17 09:12 09/16/17 04:18 Intake and Output: 09/16/17 09/16/17 06:59 18:59 Intake Total 710 Balance 710 - Medications Medications: Current Medications Amlodipine Besylate (Norvasc) 5 mg PO DAILY [facility] Last Admin: 09/16/17 09:15 Dose: 5 mg Enalapril Maleate (Vasotec) 5 mg PO DAILY [facility] Last Admin: 09/16/17 09:12 Dose: 5 mg Enoxaparin Sodium (Lovenox) 30 mg SC DAILY [facility] Last Admin: 09/16/17 09:15 Dose: 30 mg Dextrose (Dextrose 10% In Water) 500 mls @ 10 mls/hr IV .Q24H [facility] Last Admin: 09/15/17 12:05 Dose: 10 mls/hr Ondansetron HCl (Zofran Inj) 4 mg IVP Q6H PRN PRN Reason: Nausea/Vomiting Last Admin: 09/15/17 20:51 Dose: 4 mg Pneumococcal Polyvalent Vaccine (Pneumovax 23 Vaccine) 0.5 ml IM .ONCE ONE Stop: 09/18/17 10:01 Potassium Chloride (K-Dur 20 Meq Er Tab) 40 meq PO Q12 [facility] Last Admin: 09/16/17 09:15 Dose: 40 meq Tramadol HCl (Ultram) 50 mg PO Q6H PRN PRN Reason: Pain, moderate (4-7) Last Admin: 09/15/17 15:27 Dose: 50 mg - Labs Labs: 09/15/17 08:15 09/15/17 08:43 - Constitutional Appears: Non-toxic, No Acute Distress - Head Exam Head Exam: NORMAL INSPECTION - Eye Exam Eye Exam: Normal appearance - ENT Exam ENT Exam: Mucous Membranes Moist - Respiratory Exam Respiratory Exam: NORMAL BREATHING PATTERN. absent: Accessory Muscle Use, Respiratory Distress - Cardiovascular Exam Cardiovascular Exam: absent: Bradycardia, Tachycardia - GI/Abdominal Exam GI & Abdominal Exam: Soft. absent: Distended, Tenderness - Extremities Exam Extremities Exam: Normal Capillary Refill Additional comments: DP pulse palpated on RLE DP/PT unappreciable on LLE LLE dressing c/d/i - Neurological Exam Neurological Exam: Alert, Awake, Normal Gait, Oriented x3 - Psychiatric Exam Psychiatric exam: Normal Affect, Normal Mood - Skin Skin Exam: Dry, Normal Color, Warm Assessment and Plan - Assessment and Plan (Free Text) Assessment: 27 y/o M w/ non-healing wound to L foot - f/u ABIs/PVRs - cont local wound care w/ medihoney - pain management - cont medical management Pt discussed w/ attending Patti Pimentel DO PGY2
--- NOTE | 2017-09-16 12:04 | CP.PCM.CON ---
History of Present Illness - History of Present Illness History of Present Illness: discussed on rounds full report to follow HPI: 27M w. pmh of type I DM initially presented to ED for AMS 2/2 hypoglycemia. Surgery was consulted for non-healing L foot wound. Pt states that he has had wound on his L foot for about 2 weeks. He states that he has been doing local wound care daily w. neosporin. Despite this, there has been no improvement. He states that the wound has been getting deeper, it is foul smelling, and occasionally drains pus. He denies any pain in the foot. He denies neuropathy. He denies F/C. Back in February/March he states that he had a more serious infection in his L leg which required surgery at [facility] and he was in the hospital for about 1 month. 12 Pt ROS negative unless specified PMH: Type I DM PSH: debridement L leg for infection Meds: MAR reviewed NKDA Social: No ETOH/tobacco, +marijuana Fhx: Non-contributory Review of Systems - Constitutional Constitutional: As Per HPI - EENT Eyes: absent: As Per HPI, Blind Spots, Blurred Vision, Change in Vision, Decreased Night Vision, Diplopia, Discharge, Dry Eye, Exophthalmos, Floaters, Irritation, Itchy Eyes, Loss of Peripheral Vision, Pain, Photophobia, Requires Corrective Lenses, Sees Flashes, Spots in Vision, Tunnel Vision, Other Visual Disturbances, Loss of Vision, Other Ears: absent: As Per HPI, Decreased Hearing, Ear Discharge, Ear Pain, Tinnitus, Abnormal Hearing, Disequilibrium, Dizziness, Other Nose/Mouth/Throat: absent: As Per HPI, Epistaxis, Nasal Congestion, Nasal Discharge, Nasal Obstruction, Nasal Trauma, Nose Pain, Post Nasal Drip, Sinus Pain, Sinus Pressure, Bleeding Gums, Change in Voice, Dental Pain, Dry Mouth, Dysphagia, Halitosis, Hoarsness, Lip Swelling, Mouth Lesions, Mouth Pain, Odynophagia, Sore Throat, Throat Swelling, Tongue Swelling, Facial Pain, Neck Pain, Neck Mass, Other - Cardiovascular Cardiovascular: absent: As Per HPI, Acrocyanosis, Chest Pain, Chest Pain at Rest , Chest Pain with Activity, Claudication, Diaphoresis, Dyspnea, Dyspnea on Exertion, Edema, Irregular Heart Rhythm, Pain Radiating to Arm/Neck/Jaw, Leg Edema, Leg Ulcers, Lightheadedness, Orthopnea, Palpitations, Paroxysmal Nocturnal Dyspnea, Pedal Edema, Radiating Pain, Rapid Heart Rate, Slow Heart Rate, Syncope, Other - Respiratory Respiratory: absent: As Per HPI, Cough, Dyspnea, Hemoptysis, Dyspnea on Exertion , Wheezing, Snoring, Stridor, Pain on Inspiration, Chest Congestion, Excessive Mucous Production, Change in Mucous Color, Pain with Coughing, Other - Gastrointestinal Gastrointestinal: absent: As Per HPI, Abdominal Pain, Belching, Bloating, Change in Bowel Habits, Change in Stool Character, Coffee Ground Emesis, Constipation, Cramping, Diarrhea, Dyspepsia, Dysphagia, Early Satiety, Excessive Flatus, Fecal Incontinence, Heartburn, Hematemesis, Hematochezia, Loose Stools, Melena, Nausea, Odynophagia, Temesmus, Vomiting, Other - Genitourinary Genitourinary: absent: As Per HPI, Change in Urinary Stream, Difficulty Urinating, Dysuria, Flank Pain, Hematuria, Pyuria, Nocturia, Urinary Incontinence, Urinary Frequency, Urinary Hesitance, Urinary Urgency, Voiding Freq/Small Amts, Freq UTI, Hx Renal/Bladder Calculi, Hx /Renal Surgery, Bladder Distension, Other - Musculoskeletal Musculoskeletal: absent: As Per HPI, Abnormal Gait, Arthralgias, Atrophy, Back Pain, Deformity, Joint Swelling, Limited Range of Motion, Loss of Height, Muscle Cramps, Muscle Weakness, Myalgias, Neck Pain, Numbness, Radiating Pain into Limb, Stiffness, Tingling, Other - Integumentary Integumentary: As Per HPI, Skin Pain, Wounds - Neurological Neurological: As Per HPI - Psychiatric Psychiatric: absent: As Per HPI, Abnormal Sleep Pattern, Anhedonia, Anxiety, Auditory Hallucinations, Behavioral Changes, Change in Appetite, Change in Libido, Confusion, Depression, Difficulty Concentrating, Hallucinations, Homicidal Ideation, Hopelessness, Irritability, Memory Loss, Mood Swings, Panic Attacks, Paranoia, Suicidal Ideation, Visual Hallucinations, Tactile Hallucinations, Other - Endocrine Endocrine: absent: As Per HPI, Change in Body Appearance, Change in Libido, Cold Intolorance, Deepening of Voice, Excessive Sweating, Fatigue, Flushing, Heat Intolorance, Increase in Ring/Shoe/Hat Size, Palpitations, Polydipsia, Polyphagia, Polyuria, Other - Hematologic/Lymphatic Hematologic: absent: As Per HPI, Easy Bleeding, Easy Bruising, Lymphadenopathy, Other Past Patient History - Infectious Disease Hx of Infectious Diseases: None - Tetanus Immunizations Tetanus Immunization: Unknown - Past Medical History & Family History Past Medical History?: Yes - Past Social History Smoking Status: Never Smoked - CARDIAC Hx Hypercholesterolemia: No Hx Hypertension: Yes Hx Mitral Valve Prolapse: No Hx Pacemaker: No Hx Peripheral Edema: No - PULMONARY Hx Asthma: No Hx Bronchitis: No Hx Chronic Obstructive Pulmonary Disease (COPD): No Hx Emphysema: No Hx Pneumonia: No Hx Pulmonary Embolism: No Hx Sleep Apnea: No - NEUROLOGICAL Hx Alzheimer's Disease: No Hx Dementia: No Hx Migraine: No Hx Multiple Sclerosis: No Hx Parkinson's Disease: No Hx Seizures: No Hx Transient Ischemic Attacks (TIA): No - HEENT Hx HEENT Problems: No Hx Blind: No Hx Cataracts: No Hx Deafness: No Hx Difficulty Chewing: No Hx Epistaxis: No Hx Glaucoma: No Hx Macular Degeneration: No - RENAL Hx Chronic Kidney Disease: No Hx Kidney Stones: No - ENDOCRINE/METABOLIC Hx Hyperthyroidism: No Hx Hypothyroidism: No - HEMATOLOGICAL/ONCOLOGICAL Hx Anemia: No Hx Human Immunodeficiency Virus (HIV): No Hx Sickle Cell Disease: No - INTEGUMENTARY Hx Dermatological Problems: Yes Hx Eczema: Yes - MUSCULOSKELETAL/RHEUMATOLOGICAL Hx Arthritis: No Hx Fractures: Yes ( shoulder 2014) Hx Osteoporosis: No Hx Rheumatoid Arthritis: No - GASTROINTESTINAL Hx Crohn's Disease: No Hx Diverticulitis: No Hx Gall Bladder Disease: No Hx Gastritis: No Hx Pancreatitis: No - GENITOURINARY/GYNECOLOGICAL Hx Sexually Transmitted Disorders: No - PSYCHIATRIC Hx Anxiety: No Hx Bipolar Disorder: No Hx Depression: No Hx Paranoia: No Hx Post Traumatic Stress Disorder: No Hx Schizophrenia: No Hx Substance Use: Yes (marijuana) - SURGICAL HISTORY Hx Appendectomy: No Hx Carotid Endarterectomy: No Hx Cholecystectomy: No Hx Coronary Artery Bypass Graft: No Hx Coronary Stent: No Hx Tonsillectomy: No - ANESTHESIA Hx Anesthesia: No Hx Anesthesia Reactions: No Hx Malignant Hyperthermia: No Meds Allergies/Adverse Reactions: Allergies Allergy/AdvReac Type Severity Reaction Status Date / Time pollen extracts Allergy Intermediate ITCHING Verified 09/15/17 07:56 - Medications Medications: Current Medications Amlodipine Besylate (Norvasc) 5 mg PO DAILY [facility] Last Admin: 09/16/17 09:15 Dose: 5 mg Enalapril Maleate (Vasotec) 5 mg PO DAILY [facility] Last Admin: 09/16/17 09:12 Dose: 5 mg Enoxaparin Sodium (Lovenox) 30 mg SC DAILY [facility] Last Admin: 09/16/17 09:15 Dose: 30 mg Dextrose (Dextrose 10% In Water) 500 mls @ 10 mls/hr IV .Q24H [facility] Last Admin: 09/15/17 12:05 Dose: 10 mls/hr Ondansetron HCl (Zofran Inj) 4 mg IVP Q6H PRN PRN Reason: Nausea/Vomiting Last Admin: 09/15/17 20:51 Dose: 4 mg Pneumococcal Polyvalent Vaccine (Pneumovax 23 Vaccine) 0.5 ml IM .ONCE ONE Stop: 09/18/17 10:01 Potassium Chloride (K-Dur 20 Meq Er Tab) 40 meq PO Q12 [facility] Last Admin: 09/16/17 09:15 Dose: 40 meq Tramadol HCl (Ultram) 50 mg PO Q6H PRN PRN Reason: Pain, moderate (4-7) Last Admin: 09/15/17 15:27 Dose: 50 mg Physical Exam - Constitutional Appears: Non-toxic, Chronically Ill - Head Exam Head Exam: NORMOCEPHALIC - Eye Exam Eye Exam: PERRL - ENT Exam ENT Exam: Mucous Membranes Dry, Normal External Ear Exam - Neck Exam Neck exam: Negative for: Lymphadenopathy - Respiratory Exam Respiratory Exam: Decreased Breath Sounds, Clear to Auscultation Bilateral - Cardiovascular Exam Cardiovascular Exam: REGULAR RHYTHM, +S1, +S2 - GI/Abdominal Exam GI & Abdominal Exam: Diminished Bowel Sounds, Soft. absent: Tenderness - Rectal Exam Rectal Exam: Deferred - Exam Exam: NORMAL INSPECTION - Extremities Exam Extremities exam: Positive for: pedal edema, tenderness. Negative for: calf tenderness, normal inspection, pedal pulses present - Back Exam Back exam: absent: CVA tenderness (L), CVA tenderness (R) - Neurological Exam Neurological exam: Alert, CN II-XII Intact, Oriented x3, Reflexes Normal - Psychiatric Exam Psychiatric exam: Normal Mood - Skin Skin Exam: Dry Results - Vital Signs Recent Vital Signs: Last Vital Signs Temp 98.0 F 09/16/17 08:21 Pulse 96 H 09/16/17 11:29 Resp 20 09/16/17 08:21 BP 160/110 H 09/16/17 09:12 Pulse Ox 99 09/16/17 04:18 - Labs Result Diagrams: 09/17/17 08:19 09/17/17 08:19 Labs: Laboratory Results - last 24 hr 09/15/17 09/15/17 09/15/17 11:47 12:19 14:31 POC Glucose (mg/dL) 130 H 146 H Urine Color Straw Urine Clarity Clear Urine pH 7.0 Ur Specific Gideon 1.010 Urine Protein 3+ H Urine Glucose (UA) 2+ H Urine Ketones Negative Urine Blood 1+ H Urine Nitrate Negative Urine Bilirubin Negative Urine Urobilinogen Normal Ur Leukocyte Esterase Neg Urine WBC (Auto) 3 Urine RBC (Auto) 4 H Urine Bacteria Rare Hyaline Casts 3-5 H 09/15/17 09/15/17 09/15/17 17:22 21:16 23:56 POC Glucose (mg/dL) 58 L 139 H 135 H Urine Color Urine Clarity Urine pH Ur Specific Gideon Urine Protein Urine Glucose (UA) Urine Ketones Urine Blood Urine Nitrate Urine Bilirubin Urine Urobilinogen Ur Leukocyte Esterase Urine WBC (Auto) Urine RBC (Auto) Urine Bacteria Hyaline Casts 09/16/17 09/16/17 09/16/17 02:00 06:29 06:52 POC Glucose (mg/dL) 89 65 44 L Urine Color Urine Clarity Urine pH Ur Specific Gideon Urine Protein Urine Glucose (UA) Urine Ketones Urine Blood Urine Nitrate Urine Bilirubin Urine Urobilinogen Ur Leukocyte Esterase Urine WBC (Auto) Urine RBC (Auto) Urine Bacteria Hyaline Casts 09/16/17 07:08 POC Glucose (mg/dL) 326 H Urine Color Urine Clarity Urine pH Ur Specific Gideon Urine Protein Urine Glucose (UA) Urine Ketones Urine Blood Urine Nitrate Urine Bilirubin Urine Urobilinogen Ur Leukocyte Esterase Urine WBC (Auto) Urine RBC (Auto) Urine Bacteria Hyaline Casts Assessment & Plan (1) Hypoglycemia Status: Acute (2) Diabetic foot ulcer Status: Chronic - Assessment and Plan (Free Text) Assessment: await cultures ' consider bone scan/ MRI cont iv antibiotics
[2017-09-16] MEDS: Piperacillin/Tazobact 3.375 GM in Sodium Chloride 100 ML IVPB SCH ×2 (14:13→18:27)
--- NOTE | 2017-09-16 18:47 | CP.PCM.PN ---
Subjective - Date & Time of Evaluation Date of Evaluation: 09/16/17 Time of Evaluation: 12:20 - Subjective Subjective: clinically same Objective - Vital Signs/Intake and Output Vital Signs (last 24 hours): Temp Pulse Resp BP Pulse Ox 98.1 F 112 H 20 142/91 H 98 09/16/17 15:00 09/16/17 17:00 09/16/17 15:00 09/16/17 17:00 09/16/17 15:00 Intake and Output: 09/16/17 09/16/17 06:59 18:59 Intake Total 710 Balance 710 - Medications Medications: Current Medications Amlodipine Besylate (Norvasc) 5 mg PO DAILY [facility] Last Admin: 09/16/17 09:15 Dose: 5 mg Enalapril Maleate (Vasotec) 5 mg PO DAILY [facility] Last Admin: 09/16/17 09:12 Dose: 5 mg Enoxaparin Sodium (Lovenox) 30 mg SC DAILY [facility] Last Admin: 09/16/17 09:15 Dose: 30 mg Dextrose (Dextrose 10% In Water) 500 mls @ 10 mls/hr IV .Q24H [facility] Last Admin: 09/16/17 14:43 Dose: Not Given Piperacillin Sod/Tazobactam (Sod 3.375 gm/ Sodium Chloride) 100 mls @ 200 mls/ hr IVPB Q6H [facility] Last Admin: 09/16/17 18:27 Dose: 200 mls/hr Ondansetron HCl (Zofran Inj) 4 mg IVP Q6H PRN PRN Reason: Nausea/Vomiting Last Admin: 09/15/17 20:51 Dose: 4 mg Pneumococcal Polyvalent Vaccine (Pneumovax 23 Vaccine) 0.5 ml IM .ONCE ONE Stop: 09/18/17 10:01 Potassium Chloride (K-Dur 20 Meq Er Tab) 40 meq PO Q12 [facility] Last Admin: 09/16/17 09:15 Dose: 40 meq Sodium Hypochlorite (Dakins Solution 0.125%) 1 appl TOP QSHIFT [facility] Last Admin: 09/16/17 14:09 Dose: Not Given Tramadol HCl (Ultram) 50 mg PO Q6H PRN PRN Reason: Pain, moderate (4-7) Last Admin: 09/16/17 14:46 Dose: 50 mg - Labs Labs: 09/15/17 08:15 09/15/17 08:43 - Constitutional Appears: Well - Head Exam Head Exam: ATRAUMATIC, NORMAL INSPECTION, NORMOCEPHALIC - Eye Exam Eye Exam: EOMI, Normal appearance, PERRL Pupil Exam: NORMAL ACCOMODATION, PERRL - ENT Exam ENT Exam: Mucous Membranes Moist, Normal Exam - Neck Exam Neck Exam: Full ROM, Normal Inspection. absent: Lymphadenopathy - Respiratory Exam Respiratory Exam: Decreased Breath Sounds - Cardiovascular Exam Cardiovascular Exam: REGULAR RHYTHM, +S1, +S2 - GI/Abdominal Exam GI & Abdominal Exam: Soft, Diminished Bowel Sounds - Rectal Exam Rectal Exam: Deferred Assessment and Plan (1) Abdominal pain Status: Acute (2) Back pain Status: Acute (3) Diarrhea Status: Acute (4) Dizziness Status: Acute (5) Headache Status: Acute (6) Homeless single person Status: Acute (7) Hypoglycemia Status: Acute (8) Hypoglycemia Status: Acute (9) Hypoglycemia due to type 1 diabetes mellitus Status: Acute (10) Hypothermia Status: Acute (11) Nausea Status: Acute (12) Near syncope Status: Acute (13) Orthostatic hypotension Status: Acute (14) Prophylactic measure Status: Acute (15) Tachycardia Status: Acute (16) Uncontrolled diabetes mellitus Status: Acute (17) Uncontrolled type 1 diabetes mellitus Status: Acute (18) Diabetes Status: Chronic (19) Diabetic foot ulcer Status: Chronic (20) History of hypertension Status: Chronic (21) Hypertension Status: Chronic (22) Seizure Status: Suspected - Assessment and Plan (Free Text) Plan: Patient examined. Patient better. Continue to monitor RBS. Continue broad-spectrum antibiotic piperacillin and tazobactam. Pneumococcal vaccine given. Continue supportive care.
[2017-09-17] MEDS: Piperacillin/Tazobact 3.375 GM in Sodium Chloride 100 ML IVPB SCH ×4 (00:43→19:54)
[2017-09-17 08:37] LABS: BASO % 0.9 % (0.0-2.0); EOS # 0.1 K/uL (0.0-0.7); HEMATOCRIT 29.5 % (35.0-51.0); LYMPH # 1.7 K/uL (1.0-4.3); LYMPH % 31.4 % (20.0-40.0); MEAN CELL VOLUME 84.5 fL (80.0-94.0); MEAN CORPUSCULAR HEMOGLOBIN 28.3 pg (27.0-31.0); MEAN CORPUSCULAR HGB CONC 33.6 g/dL (33.0-37.0); MEAN PLATELET VOLUME 8.3 fL (7.2-11.7); MONO # 0.4 K/uL (0.0-0.8); MONO % 7.8 % (0.0-10.0); NRBC % 0.1 % (0.0-2.0); RED CELL DISTRIBUTION WIDTH 15.8 % (11.5-14.5); WHITE BLOOD COUNT 5.3 K/uL (4.8-10.8)
[2017-09-17 08:48] LABS: CHLORIDE 98 mmol/L (98-107); POTASSIUM 4.9 mmol/L (3.6-5.2); SODIUM 132 mmol/L (132-148)
[2017-09-17 08:50] LABS: ALB/GLOB RATIO 0.6 (1.0-2.1); ALKALINE PHOSPHATASE 131 U/L (38-126); AST/SGOT 36 U/L (17-59); BILIRUBIN,TOTAL 0.4 mg/dL (0.2-1.3); BLOOD UREA NITROGEN 24 mg/dL (9-20); CARBON DIOXIDE 28 mmol/L (22-30); GFR AFRICAN-AMERICAN > 60
[2017-09-17 08:51] LABS: ALT/SGPT 33 U/L (21-72); CALCIUM 9.3 mg/dl (8.6-10.4); GLUCOSE,RANDOM 245 mg/dL (75-110); MAGNESIUM 1.9 mg/dL (1.6-2.3); PHOSPHOROUS 4.1 mg/dL (2.5-4.5)
[2017-09-17] MEDS: Enoxaparin 30 mg Syringe SC SCH (09:15)
--- NOTE | 2017-09-17 10:46 | CP.PCM.PN ---
Subjective - Date & Time of Evaluation Date of Evaluation: 09/17/17 Time of Evaluation: 10:45 - Subjective Subjective: 27 yo male patient with PMHx of DM type I was seen at bedside this AM with Dr. Bowers concerning non-healing wounds to Left foot. Patient is restingcomfortably in bed. AAO x3, dressings to Left foot remains clean, dry and intact. Patient denies of any pain to the wounds. Patient denies of any N/V/ F/C or SOB today. Objective - Vital Signs/Intake and Output Vital Signs (last 24 hours): Temp Pulse Resp BP Pulse Ox 97.4 F L 93 H 20 154/99 H 98 09/17/17 07:35 09/17/17 07:35 09/17/17 07:35 09/17/17 09:15 09/17/17 07:35 Intake and Output: 09/17/17 09/17/17 06:59 18:59 Intake Total 430 Balance 430 - Medications Medications: Current Medications Amlodipine Besylate (Norvasc) 5 mg PO DAILY [facility] Last Admin: 09/17/17 09:15 Dose: 5 mg Enalapril Maleate (Vasotec) 5 mg PO DAILY [facility] Last Admin: 09/17/17 09:15 Dose: 5 mg Enoxaparin Sodium (Lovenox) 30 mg SC DAILY [facility] Last Admin: 09/17/17 09:15 Dose: 30 mg Dextrose (Dextrose 10% In Water) 500 mls @ 10 mls/hr IV .Q24H [facility] Last Admin: 09/17/17 09:52 Dose: Not Given Piperacillin Sod/Tazobactam (Sod 3.375 gm/ Sodium Chloride) 100 mls @ 200 mls/ hr IVPB Q6H [facility] Last Admin: 09/17/17 06:00 Dose: 200 mls/hr Ondansetron HCl (Zofran Inj) 4 mg IVP Q6H PRN PRN Reason: Nausea/Vomiting Last Admin: 09/16/17 21:18 Dose: 4 mg Pneumococcal Polyvalent Vaccine (Pneumovax 23 Vaccine) 0.5 ml IM .ONCE ONE Stop: 09/18/17 10:01 Potassium Chloride (K-Dur 20 Meq Er Tab) 40 meq PO Q12 [facility] Last Admin: 09/16/17 21:19 Dose: 40 meq Sodium Hypochlorite (Dakins Solution 0.125%) 1 appl TOP QSHIFT [facility] Last Admin: 09/17/17 06:00 Dose: Not Given Tramadol HCl (Ultram) 50 mg PO Q6H PRN PRN Reason: Pain, moderate (4-7) Last Admin: 09/17/17 08:04 Dose: 50 mg - Labs Labs: 09/17/17 08:19 09/17/17 08:19 - Constitutional Appears: Well, Non-toxic, No Acute Distress - Head Exam Head Exam: ATRAUMATIC - Extremities Exam Additional comments: Left lower extremity exam DERM: Open wound noted to dorsal aspect of left foot 1st metatarsal diaphysis measuring 3cm x 2cm x 1.5cm. EHL tendon exposed, PTB. Wound base appears mostly fibrotic. Mild purulent drainage noted. Mal-odor noted. Erythema noted around the wound. Consistent with Cantu II at the least. Another open wound noted to posterior aspect of Left heel measuring 4.5cm x 3cm x 0.2cm with granular base. Wound appears superficial with no drainage, no mal- odor, no purulent drainage. No PTB VASC: Palpable DP and PT noted bilaterally 1/4. 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 Bowers labs and vitals reviewed; 5.3 WBC, afebrile Xray reveals no sign of OM Left foot dressing changed with Betadine, DSD. Dakin solution ordered is needs to be by bedside. F/U ABIs/PVRs Left foot WCX; Proteus Mirabilis, Beta Hymolytic Strep Group B Podiatry will continue to follow inhouse
[2017-09-17] MEDS ORDERED: Lactated Ringer's 1,000 ML IV ONE (11:58)
--- NOTE | 2017-09-17 12:04 | CP.PCM.PN ---
Subjective - Date & Time of Evaluation Date of Evaluation: 09/17/17 Time of Evaluation: 12:01 - Subjective Subjective: Surgery: Dr. Patino Pt seen and examined. Resting comfortably in bed. No complaints. Objective - Vital Signs/Intake and Output Vital Signs (last 24 hours): Temp Pulse Resp BP Pulse Ox 97.4 F L 95 H 20 154/99 H 98 09/17/17 07:35 09/17/17 09:00 09/17/17 07:35 09/17/17 09:15 09/17/17 07:35 Intake and Output: 09/17/17 09/17/17 06:59 18:59 Intake Total 430 Balance 430 - Medications Medications: Current Medications Amlodipine Besylate (Norvasc) 5 mg PO DAILY [facility] Last Admin: 09/17/17 09:15 Dose: 5 mg Enalapril Maleate (Vasotec) 5 mg PO DAILY [facility] Last Admin: 09/17/17 09:15 Dose: 5 mg Enoxaparin Sodium (Lovenox) 30 mg SC DAILY [facility] Last Admin: 09/17/17 09:15 Dose: 30 mg Dextrose (Dextrose 10% In Water) 500 mls @ 10 mls/hr IV .Q24H [facility] Last Admin: 09/17/17 09:52 Dose: Not Given Piperacillin Sod/Tazobactam (Sod 3.375 gm/ Sodium Chloride) 100 mls @ 200 mls/ hr IVPB Q6H [facility] Last Admin: 09/17/17 06:00 Dose: 200 mls/hr Lactated Ringer's (Lactated Ringer's) 1,000 mls @ 1,000 mls/hr IV .Q1H ONE Stop: 09/17/17 12:57 Ondansetron HCl (Zofran Inj) 4 mg IVP Q6H PRN PRN Reason: Nausea/Vomiting Last Admin: 09/17/17 11:30 Dose: 4 mg Pneumococcal Polyvalent Vaccine (Pneumovax 23 Vaccine) 0.5 ml IM .ONCE ONE Stop: 09/18/17 10:01 Potassium Chloride (K-Dur 20 Meq Er Tab) 40 meq PO Q12 [facility] Last Admin: 09/16/17 21:19 Dose: 40 meq Sodium Hypochlorite (Dakins Solution 0.125%) 1 appl [facility] Last Admin: 09/17/17 06:00 Dose: Not Given Tramadol HCl (Ultram) 50 mg PO Q6H PRN PRN Reason: Pain, moderate (4-7) Last Admin: 09/17/17 08:04 Dose: 50 mg - Labs Labs: 09/17/17 08:19 09/17/17 08:19 - Constitutional Appears: Non-toxic, No Acute Distress - Head Exam Head Exam: ATRAUMATIC, NORMOCEPHALIC - Eye Exam Eye Exam: EOMI - ENT Exam ENT Exam: Mucous Membranes Moist - Neck Exam Neck Exam: Full ROM - Respiratory Exam Respiratory Exam: NORMAL BREATHING PATTERN. absent: Accessory Muscle Use, Respiratory Distress - Extremities Exam Additional comments: LLE, dressing in place C/D/I - Neurological Exam Neurological Exam: Alert, Awake, Oriented x3 - Psychiatric Exam Psychiatric exam: Normal Affect, Normal Mood - Skin Skin Exam: Dry, Warm Assessment and Plan - Assessment and Plan (Free Text) Assessment: 27M w. non-healing L foot wound -PVR, slight abnormality in LLE waveform distally -Will order CT angio -Further recommendations pending imaging results -c/w local wound care -d/w attending Licoitis PGY3
[2017-09-17] MEDS: Potassium Chloride 20 mEq ER Tab PO SCH ×2 (13:18→21:28)
[2017-09-17] MEDS: (Novolog) Insulin Aspart, Recombinant 100 u/ml 10 ml vial SC SCH ×3 (13:36→21:40)
--- NOTE | 2017-09-17 14:25 | CP.PCM.PN ---
Subjective - Date & Time of Evaluation Date of Evaluation: 09/17/17 Time of Evaluation: 11:50 - Subjective Subjective: Podiatry : Patient seen with Resident Dr Ramos. Patient was resting in bed. Left foot was redressed. Wound posterior aspect of the left heel at the level of the achilles has a good red granulation base. The ulceration of the dorsal aspect of the left foot shows exposed tendon and maceration with some odor. The foot was redressed. We are awaiting further vascular evaluation before we consider debridement of the dorsal wound. To continue local care for now. Objective - Vital Signs/Intake and Output Vital Signs (last 24 hours): Temp Pulse Resp BP Pulse Ox 97.4 F L 95 H 20 154/99 H 98 09/17/17 07:35 09/17/17 09:00 09/17/17 07:35 09/17/17 09:15 09/17/17 07:35 Intake and Output: 09/17/17 09/17/17 06:59 18:59 Intake Total 430 Balance 430 - Medications Medications: Current Medications Amlodipine Besylate (Norvasc) 5 mg PO DAILY [facility] Last Admin: 09/17/17 09:15 Dose: 5 mg Enalapril Maleate (Vasotec) 5 mg PO DAILY [facility] Last Admin: 09/17/17 09:15 Dose: 5 mg Enoxaparin Sodium (Lovenox) 30 mg SC DAILY [facility] Last Admin: 09/17/17 09:15 Dose: 30 mg Dextrose (Dextrose 10% In Water) 500 mls @ 10 mls/hr IV .Q24H [facility] Last Admin: 09/17/17 09:52 Dose: Not Given Piperacillin Sod/Tazobactam (Sod 3.375 gm/ Sodium Chloride) 100 mls @ 200 mls/ hr IVPB Q6H [facility] Last Admin: 09/17/17 13:36 Dose: 200 mls/hr Insulin Aspart (Novolog) 0 unit SC ACHS [facility] PRN Reason: Protocol Last Admin: 09/17/17 13:36 Dose: 6 unit Ondansetron HCl (Zofran Inj) 4 mg IVP Q6H PRN PRN Reason: Nausea/Vomiting Last Admin: 09/17/17 11:30 Dose: 4 mg Pneumococcal Polyvalent Vaccine (Pneumovax 23 Vaccine) 0.5 ml IM .ONCE ONE Stop: 09/18/17 10:01 Potassium Chloride (K-Dur 20 Meq Er Tab) 40 meq PO Q12 [facility] Last Admin: 09/17/17 13:18 Dose: Not Given Sodium Hypochlorite (Dakins Solution 0.125%) 1 appl TOP QSHIFT [facility] Last Admin: 09/17/17 06:00 Dose: Not Given Tramadol HCl (Ultram) 50 mg PO Q6H PRN PRN Reason: Pain, moderate (4-7) Last Admin: 09/17/17 08:04 Dose: 50 mg - Labs Labs: 09/17/17 08:19 09/17/17 08:19
--- NOTE | 2017-09-17 15:02 | VASCLAB ---
STUDY DESCRIPTION: HISTORY: LLE non-healing wound PRIORS: None. TECHNIQUE: Pulse volume recording waveforms and segmental pressures of bilateral lower extremities at multiple levels were obtained. Ankle Brachial Indices (ABIs) were calculated. Report prepared by LARRY Banks, RVT RIGHT LOWER EXTREMITY: * Brachial artery: Pressure - 165 mmHg. * High thigh: Pressure - 208 mmHg: Ratio - 1.21: PVR waveform - Pulsatile * Low thigh: Pressure - 220 mmHg: Ratio - NC PVR waveform: Pulsatile * Calf: Pressure - 216 mmHg: Ratio - 1.26 PVR waveform: Pulsatile * Posterior tibial Artery: Pressure - 198 mmHg: Ratio - 1.15 PVR waveform: Pulsatile * Dorsalis pedis Artery: Pressure - 203 mmHg: Ratio - 1.18 PVR waveform: Pulsatile * Great toe: Pressure - mmHg: Ratio - PVR waveform: Ankle brachial index (RYANNE): 1.18 LEFT LOWER EXTREMITY: * Brachial artery: Pressure - 172 mmHg. * High thigh: Pressure - 207 mmHg: Ratio - 1.20: PVR waveform - Pulsatile * Low thigh: Pressure - 216 mmHg: Ratio - 1.26 PVR waveform: Pulsatile * Calf: Pressure - 214 mmHg: Ratio - 1.24 PVR waveform: Pulsatile * Posterior tibial Artery: Pressure - 204 mmHg: Ratio - 1.19 PVR waveform: Pulsatile * Dorsalis pedis Artery: Pressure - 192 mmHg: Ratio - 1.12 PVR waveform: Pulsatile * Great toe: Pressure - mmHg: Ratio - PVR waveform: Ankle brachial index (RYANNE): 1.19 OTHER FINDINGS: Right: Left: IMPRESSION: Right: There was no evidence of hemodynamically significant arterial insufficiency in the right lower extremity. Left: There was no evidence of hemodynamically significant arterial insufficiency in the left lower extremity.
--- NOTE | 2017-09-17 17:46 | CP.PCM.PN ---
Subjective - Date & Time of Evaluation Date of Evaluation: 09/17/17 Time of Evaluation: 09:00 - Subjective Subjective: denies fever chills pain less Objective - Vital Signs/Intake and Output Vital Signs (last 24 hours): Temp Pulse Resp BP Pulse Ox 98.1 F 98 H 20 126/88 96 09/17/17 16:00 09/17/17 16:00 09/17/17 16:00 09/17/17 16:00 09/17/17 16:00 Intake and Output: 09/17/17 09/17/17 06:59 18:59 Intake Total 430 Balance 430 - Medications Medications: Current Medications Amlodipine Besylate (Norvasc) 5 mg PO DAILY [facility] Last Admin: 09/17/17 09:15 Dose: 5 mg Enalapril Maleate (Vasotec) 5 mg PO DAILY [facility] Last Admin: 09/17/17 09:15 Dose: 5 mg Enoxaparin Sodium (Lovenox) 30 mg SC DAILY [facility] Last Admin: 09/17/17 09:15 Dose: 30 mg Dextrose (Dextrose 10% In Water) 500 mls @ 10 mls/hr IV .Q24H [facility] Last Admin: 09/17/17 09:52 Dose: Not Given Piperacillin Sod/Tazobactam (Sod 3.375 gm/ Sodium Chloride) 100 mls @ 200 mls/ hr IVPB Q6H [facility] Last Admin: 09/17/17 13:36 Dose: 200 mls/hr Insulin Aspart (Novolog) 0 unit SC ACHS [facility] PRN Reason: Protocol Last Admin: 09/17/17 13:36 Dose: 6 unit Ondansetron HCl (Zofran Inj) 4 mg IVP Q6H PRN PRN Reason: Nausea/Vomiting Last Admin: 09/17/17 11:30 Dose: 4 mg Pneumococcal Polyvalent Vaccine (Pneumovax 23 Vaccine) 0.5 ml IM .ONCE ONE Stop: 09/18/17 10:01 Potassium Chloride (K-Dur 20 Meq Er Tab) 40 meq PO Q12 [facility] Last Admin: 09/17/17 13:18 Dose: Not Given Sodium Hypochlorite (Dakins Solution 0.125%) 1 appl TOP QSHIFT [facility] Last Admin: 09/17/17 17:13 Dose: Not Given Tramadol HCl (Ultram) 50 mg PO Q6H PRN PRN Reason: Pain, moderate (4-7) Last Admin: 09/17/17 08:04 Dose: 50 mg - Labs Labs: 09/17/17 08:19 09/17/17 08:19 - Constitutional Appears: Non-toxic, Chronically Ill - Head Exam Head Exam: NORMAL INSPECTION - Eye Exam Eye Exam: absent: Scleral icterus - ENT Exam ENT Exam: Mucous Membranes Dry - Neck Exam Neck Exam: absent: Lymphadenopathy - Respiratory Exam Respiratory Exam: Decreased Breath Sounds - Cardiovascular Exam Cardiovascular Exam: REGULAR RHYTHM - GI/Abdominal Exam GI & Abdominal Exam: Distended, Soft - Rectal Exam Rectal Exam: Deferred - Exam Exam: NORMAL INSPECTION Assessment and Plan (1) Hypoglycemia Status: Acute (2) Diabetic foot ulcer Status: Chronic - Assessment and Plan (Free Text) Assessment: cont iv rx and wound care for left foot oinfection consider mri vascular on board needs debridement
--- NOTE | 2017-09-17 19:51 | CP.PCM.PN ---
Subjective - Date & Time of Evaluation Date of Evaluation: 09/17/17 Time of Evaluation: 09:40 - Subjective Subjective: clinically same Objective - Vital Signs/Intake and Output Vital Signs (last 24 hours): Temp Pulse Resp BP Pulse Ox 98.1 F 98 H 20 126/88 96 09/17/17 16:00 09/17/17 16:00 09/17/17 16:00 09/17/17 16:00 09/17/17 16:00 - Medications Medications: Current Medications Amlodipine Besylate (Norvasc) 5 mg PO DAILY [facility] Last Admin: 09/17/17 09:15 Dose: 5 mg Enalapril Maleate (Vasotec) 5 mg PO DAILY [facility] Last Admin: 09/17/17 09:15 Dose: 5 mg Enoxaparin Sodium (Lovenox) 30 mg SC DAILY [facility] Last Admin: 09/17/17 09:15 Dose: 30 mg Dextrose (Dextrose 10% In Water) 500 mls @ 10 mls/hr IV .Q24H [facility] Last Admin: 09/17/17 09:52 Dose: Not Given Piperacillin Sod/Tazobactam (Sod 3.375 gm/ Sodium Chloride) 100 mls @ 200 mls/ hr IVPB Q6H [facility] Last Admin: 09/17/17 13:36 Dose: 200 mls/hr Insulin Aspart (Novolog) 0 unit SC ACHS [facility] PRN Reason: Protocol Last Admin: 09/17/17 18:25 Dose: 5 unit Ondansetron HCl (Zofran Inj) 4 mg IVP Q6H PRN PRN Reason: Nausea/Vomiting Last Admin: 09/17/17 11:30 Dose: 4 mg Pneumococcal Polyvalent Vaccine (Pneumovax 23 Vaccine) 0.5 ml IM .ONCE ONE Stop: 09/18/17 10:01 Potassium Chloride (K-Dur 20 Meq Er Tab) 40 meq PO Q12 [facility] Last Admin: 09/17/17 13:18 Dose: Not Given Sodium Hypochlorite (Dakins Solution 0.125%) 1 appl TOP QSHIFT [facility] Last Admin: 09/17/17 17:13 Dose: Not Given Tramadol HCl (Ultram) 50 mg PO Q6H PRN PRN Reason: Pain, moderate (4-7) Last Admin: 09/17/17 18:53 Dose: 50 mg - Labs Labs: 09/17/17 08:19 09/17/17 08:19 - Constitutional Appears: Well - Head Exam Head Exam: ATRAUMATIC, NORMAL INSPECTION, NORMOCEPHALIC - Eye Exam Eye Exam: EOMI, Normal appearance, PERRL Pupil Exam: NORMAL ACCOMODATION, PERRL - ENT Exam ENT Exam: Mucous Membranes Moist, Normal Exam - Neck Exam Neck Exam: Full ROM, Normal Inspection. absent: Lymphadenopathy - Respiratory Exam Respiratory Exam: Decreased Breath Sounds - Cardiovascular Exam Cardiovascular Exam: REGULAR RHYTHM, +S1, +S2 - GI/Abdominal Exam GI & Abdominal Exam: Soft, Diminished Bowel Sounds - Rectal Exam Rectal Exam: Deferred Assessment and Plan (1) Abdominal pain Status: Acute (2) Back pain Status: Acute (3) Diarrhea Status: Acute (4) Dizziness Status: Acute (5) Headache Status: Acute (6) Homeless single person Status: Acute (7) Hypoglycemia Status: Acute (8) Hypoglycemia Status: Acute (9) Hypoglycemia due to type 1 diabetes mellitus Status: Acute (10) Hypothermia Status: Acute (11) Nausea Status: Acute (12) Near syncope Status: Acute (13) Orthostatic hypotension Status: Acute (14) Prophylactic measure Status: Acute (15) Tachycardia Status: Acute (16) Uncontrolled diabetes mellitus Status: Acute (17) Uncontrolled type 1 diabetes mellitus Status: Acute (18) Diabetes Status: Chronic (19) Diabetic foot ulcer Status: Chronic (20) History of hypertension Status: Chronic (21) Hypertension Status: Chronic (22) Seizure Status: Suspected - Assessment and Plan (Free Text) Plan: Patient examined. Patient better. CT angiogram of abdominal iliofemoral runoff vein is normal. Left foot 3 view suggestive of subcutaneous emphysema or cellulitis of medial soft tissues. No adjacent osteomyelitis. Continue broad-spectrum antibiotic piperacillin and tazobactam. Continue sliding scale insulin. Continue supportive medications.
[2017-09-18] MEDS: Piperacillin/Tazobact 3.375 GM in Sodium Chloride 100 ML IVPB SCH ×3 (01:30→13:45)
[2017-09-18] MEDS ORDERED: (Novolin R) Insulin Human Regular 100 units/ml vial SC ONE (06:26)
[2017-09-18] MEDS: (Novolog) Insulin Aspart, Recombinant 100 u/ml 10 ml vial SC SCH ×5 (06:42→22:00)
[2017-09-18 08:22] LABS: BASO # 0.1 K/uL (0.0-0.2); EOS # 0.1 K/uL (0.0-0.7); EOS % 1.2 % (0.0-4.0); LYMPH # 1.2 K/uL (1.0-4.3); LYMPH % 19.9 % (20.0-40.0); MEAN CELL VOLUME 84.6 fL (80.0-94.0); MEAN CORPUSCULAR HEMOGLOBIN 28.4 pg (27.0-31.0); MEAN CORPUSCULAR HGB CONC 33.5 g/dL (33.0-37.0); MEAN PLATELET VOLUME 8.3 fL (7.2-11.7); MONO # 0.4 K/uL (0.0-0.8); MONO % 6.1 % (0.0-10.0); RED CELL DISTRIBUTION WIDTH 15.5 % (11.5-14.5); WHITE BLOOD COUNT 5.8 K/uL (4.8-10.8)
[2017-09-18 09:31] LABS: CHLORIDE 93 mmol/L (98-107)
[2017-09-18 09:33] LABS: ALB/GLOB RATIO 0.8 (1.0-2.1); AST/SGOT 30 U/L (17-59); BILIRUBIN,TOTAL 0.5 mg/dL (0.2-1.3); CARBON DIOXIDE 25 mmol/L (22-30); GFR AFRICAN-AMERICAN > 60; TOTAL PROTEIN 7.9 g/dL (6.3-8.3)
[2017-09-18 09:34] LABS: ALKALINE PHOSPHATASE 124 U/L (38-126); ALT/SGPT 27 U/L (21-72); BLOOD UREA NITROGEN 30 mg/dL (9-20); CALCIUM 9.2 mg/dl (8.6-10.4); MAGNESIUM 1.8 mg/dL (1.6-2.3); PHOSPHOROUS 3.7 mg/dL (2.5-4.5)
[2017-09-18 09:50] LABS: SODIUM 128 mmol/L (132-148)
[2017-09-18 09:55] LABS: GLUCOSE,RANDOM 475 mg/dL (75-110)
[2017-09-18 09:56] LABS: POTASSIUM 6.5 mmol/L (3.6-5.2)
[2017-09-18] MEDS ORDERED: Sod Polystyrene Sulf 15 gm/60 ml Susp PO ONE (09:57)
[2017-09-18] MEDS ORDERED: Influenza Vaccine 60 mcg/0.5 mL SYR (4YR UP) IM ONE (10:00)
[2017-09-18] MEDS ORDERED: Pneumococcal 23-Valent Vaccine IM ONE (10:00)
--- NOTE | 2017-09-18 10:02 | CP.PCM.PN ---
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 BP MEDS AND MONITOR Objective - Vital Signs/Intake and Output Vital Signs (last 24 hours): Temp Pulse Resp BP Pulse Ox 98.1 F 104 H 20 149/101 H 96 09/18/17 09:20 09/18/17 09:20 09/18/17 09:20 09/18/17 09:20 09/18/17 09:20 Intake and Output: 09/18/17 09/18/17 06:59 18:59 Intake Total 730 Balance 730 - Medications Medications: Current Medications Amlodipine Besylate (Norvasc) 5 mg PO DAILY [facility] Last Admin: 09/17/17 09:15 Dose: 5 mg Enalapril Maleate (Vasotec) 5 mg PO DAILY [facility] Last Admin: 09/17/17 09:15 Dose: 5 mg Enoxaparin Sodium (Lovenox) 30 mg SC DAILY [facility] Last Admin: 09/17/17 09:15 Dose: 30 mg Piperacillin Sod/Tazobactam (Sod 3.375 gm/ Sodium Chloride) 100 mls @ 200 mls/ hr IVPB Q6H [facility] Last Admin: 09/18/17 01:30 Dose: 200 mls/hr Insulin Aspart (Novolog) 0 unit SC ACHS [facility] PRN Reason: Protocol Last Admin: 09/18/17 09:05 Dose: 4 unit Ondansetron HCl (Zofran Inj) 4 mg IVP Q6H PRN PRN Reason: Nausea/Vomiting Last Admin: 09/18/17 01:41 Dose: 4 mg Sodium Hypochlorite (Dakins Solution 0.125%) 1 appl TOP QSHIFT [facility] Last Admin: 09/18/17 05:21 Dose: Not Given Tramadol HCl (Ultram) 50 mg PO Q6H PRN PRN Reason: Pain, moderate (4-7) Last Admin: 09/17/17 18:53 Dose: 50 mg - Labs Labs: 09/18/17 08:01 09/18/17 08:01
[2017-09-18] MEDS: Enoxaparin 30 mg Syringe SC SCH (10:32)
[2017-09-18] MEDS ORDERED: Iodixanol 320 mg/ml 150 ml Bottle IV ONE (11:32)
--- NOTE | 2017-09-18 13:57 | CP.PCM.PN ---
Subjective - Date & Time of Evaluation Date of Evaluation: 09/18/17 Time of Evaluation: 11:40 - Subjective Subjective: Podiatry note for Dr. Myles 27 yo male patient with PMHx of DM type I was seen at bedside this morning concerning non-healing wounds to Left foot. AAO x3, dressings to Left foot remains clean, dry and intact. Patient denies of any pain to the wounds. Patient denies of any N/V/F/C or SOB today. Objective - Vital Signs/Intake and Output Vital Signs (last 24 hours): Temp Pulse Resp BP Pulse Ox 98.1 F 103 H 20 127/84 96 09/18/17 09:20 09/18/17 10:29 09/18/17 09:20 09/18/17 10:33 09/18/17 09:20 Intake and Output: 09/18/17 09/18/17 06:59 18:59 Intake Total 730 Balance 730 - Medications Medications: Current Medications Amlodipine Besylate (Norvasc) 10 mg PO DAILY [facility] Last Admin: 09/18/17 10:33 Dose: 10 mg Enalapril Maleate (Vasotec) 10 mg PO DAILY [facility] Last Admin: 09/18/17 10:33 Dose: 10 mg Enoxaparin Sodium (Lovenox) 30 mg SC DAILY [facility] Last Admin: 09/18/17 10:32 Dose: 30 mg Piperacillin Sod/Tazobactam Sod (Zosyn 3.375 Gm Iv Premix) 3.375 gm in 50 mls @ 100 mls/hr IVPB Q6H [facility] Insulin Aspart (Novolog) 0 unit SC ACHS [facility] PRN Reason: Protocol Last Admin: 09/18/17 09:05 Dose: 4 unit Insulin Glargine (Lantus) 10 unit SC HS [facility] Ondansetron HCl (Zofran Inj) 4 mg IVP Q6H PRN PRN Reason: Nausea/Vomiting Last Admin: 09/18/17 12:54 Dose: 4 mg Sodium Hypochlorite (Dakins Solution 0.125%) 1 appl TOP QSHIFT [facility] Last Admin: 09/18/17 05:21 Dose: Not Given Tramadol HCl (Ultram) 50 mg PO Q6H PRN PRN Reason: Pain, moderate (4-7) Last Admin: 09/17/17 18:53 Dose: 50 mg - Labs Labs: 09/18/17 08:01 09/18/17 08:01 - Constitutional Appears: Well, Non-toxic, No Acute Distress - Extremities Exam Additional comments: Left lower extremity exam DERM: Open wound noted to dorsal aspect of left foot 1st metatarsal diaphysis measuring 3cm x 2cm x 1.5cm. EHL tendon exposed, PTB. Wound base appears mostly fibrotic. Mild purulent drainage noted. Mal-odor noted. Erythema noted around the wound. Consistent with Cantu II at the least. Another open wound noted to posterior aspect of Left heel measuring 4.5cm x 3cm x 0.2cm with granular base. Wound appears superficial with no drainage, no mal- odor, no purulent drainage. No PTB VASC: Palpable DP and PT noted bilaterally 1/4. [employer] less than 3 seconds to all digits ORTHO: No pain on palpation to left foot NEURO: Gross sensation diminished secondary to diabetic neuropathy - Neurological Exam Neurological Exam: Alert - Psychiatric Exam Psychiatric exam: Normal Affect, Normal Mood - Skin Skin Exam: Normal Color, Warm Assessment and Plan - Assessment and Plan (Free Text) Assessment: 27 yo male patient with type I DM presenting with diabetic ulcerations to Left foot Plan: Patient was seen, evaluated at bedside discussed in detail with attending Dr. Bowers labs and vitals reviewed; 5.8 WBC, afebrile Xray reveals no sign of OM Left foot dressing changed with Betadine, DSD. Dakin solution ordered is needs to be by bedside. Left foot WCX; Proteus Mirabilis, Beta Hymolytic Strep Group B CT angio result pending. Podiatry will plan for Right foot wound debridement after Vascular input redarding CT angio Podiatry will continue to follow inhouse
[2017-09-18] MEDS ORDERED: Sodium Chloride 0.9% 500 ML IV SCH (15:30)
--- NOTE | 2017-09-18 16:37 | CP.PCM.PN ---
Subjective - Date & Time of Evaluation Date of Evaluation: 09/18/17 Time of Evaluation: 16:36 - Subjective Subjective: Surgery: Dr. Patino Pt seen and examined. Resting comfortably in bed. No complaints at this time. Objective - Vital Signs/Intake and Output Vital Signs (last 24 hours): Temp Pulse Resp BP Pulse Ox 98.1 F 102 H 20 152/99 H 96 09/18/17 15:18 09/18/17 15:18 09/18/17 15:18 09/18/17 15:18 09/18/17 15:18 Intake and Output: 09/18/17 09/18/17 06:59 18:59 Intake Total 730 Balance 730 - Medications Medications: Current Medications Amlodipine Besylate (Norvasc) 10 mg PO DAILY [facility] Last Admin: 09/18/17 10:33 Dose: 10 mg Enalapril Maleate (Vasotec) 10 mg PO DAILY [facility] Last Admin: 09/18/17 10:33 Dose: 10 mg Enoxaparin Sodium (Lovenox) 30 mg SC DAILY [facility] Last Admin: 09/18/17 10:32 Dose: 30 mg Piperacillin Sod/Tazobactam Sod (Zosyn 3.375 Gm Iv Premix) 3.375 gm in 50 mls @ 100 mls/hr IVPB Q6H [facility] Sodium Chloride (Sodium Chloride 0.9%) 500 mls @ 100 mls/hr IV .Q5H [facility] Stop: 09/18/17 20:29 Last Admin: 09/18/17 16:27 Dose: 100 mls/hr Insulin Aspart (Novolog) 0 unit SC ACHS [facility] PRN Reason: Protocol Last Admin: 09/18/17 14:54 Dose: 4 unit Insulin Glargine (Lantus) 10 unit SC HS [facility] Ondansetron HCl (Zofran Inj) 4 mg IVP Q6H PRN PRN Reason: Nausea/Vomiting Last Admin: 09/18/17 12:54 Dose: 4 mg Sodium Hypochlorite (Dakins Solution 0.125%) 1 appl TOP QSHIFT [facility] Last Admin: 09/18/17 05:21 Dose: Not Given Tramadol HCl (Ultram) 50 mg PO Q6H PRN PRN Reason: Pain, moderate (4-7) Last Admin: 09/18/17 16:26 Dose: 50 mg - Labs Labs: 09/18/17 08:01 09/18/17 08:01 - Constitutional Appears: Non-toxic, No Acute Distress - Head Exam Head Exam: ATRAUMATIC, NORMOCEPHALIC - Eye Exam Eye Exam: EOMI - Neck Exam Neck Exam: Full ROM - Respiratory Exam Respiratory Exam: NORMAL BREATHING PATTERN. absent: Accessory Muscle Use, Respiratory Distress - GI/Abdominal Exam GI & Abdominal Exam: Soft. absent: Distended, Firm, Guarding, Rigid, Tenderness - Extremities Exam Additional comments: LLE, dressing in place, C/D/I - Neurological Exam Neurological Exam: Alert, Awake, Oriented x3 Assessment and Plan - Assessment and Plan (Free Text) Assessment: 27M w. non-healing L foot wound -Awaiting angio results -further recommendations to follow -d/w attending Licoitis PGY3
[2017-09-18 17:33] LABS: CHLORIDE 92 mmol/L (98-107); SODIUM 130 mmol/L (132-148)
[2017-09-18 17:34] LABS: POTASSIUM 4.3 mmol/L (3.6-5.2)
[2017-09-18 17:36] LABS: GFR AFRICAN-AMERICAN > 60
[2017-09-18 17:37] LABS: BLOOD UREA NITROGEN 24 mg/dL (9-20); CALCIUM 9.2 mg/dl (8.6-10.4); CARBON DIOXIDE 28 mmol/L (22-30); GLUCOSE,RANDOM 306 mg/dL (75-110)
--- NOTE | 2017-09-18 18:42 | CP.PCM.PN ---
Subjective - Date & Time of Evaluation Date of Evaluation: 09/18/17 Time of Evaluation: 09:40 - Subjective Subjective: clinically same Objective - Vital Signs/Intake and Output Vital Signs (last 24 hours): Temp Pulse Resp BP Pulse Ox 98.1 F 102 H 20 152/99 H 96 09/18/17 15:18 09/18/17 15:18 09/18/17 15:18 09/18/17 15:18 09/18/17 15:18 Intake and Output: 09/18/17 09/18/17 06:59 18:59 Intake Total 730 600 Balance 730 600 - Medications Medications: Current Medications Amlodipine Besylate (Norvasc) 10 mg PO DAILY [facility] Last Admin: 09/18/17 10:33 Dose: 10 mg Enalapril Maleate (Vasotec) 10 mg PO DAILY [facility] Last Admin: 09/18/17 10:33 Dose: 10 mg Enoxaparin Sodium (Lovenox) 30 mg SC DAILY [facility] Last Admin: 09/18/17 10:32 Dose: 30 mg Piperacillin Sod/Tazobactam Sod (Zosyn 3.375 Gm Iv Premix) 3.375 gm in 50 mls @ 100 mls/hr IVPB Q6H [facility] Sodium Chloride (Sodium Chloride 0.9%) 500 mls @ 100 mls/hr IV .Q5H [facility] Stop: 09/18/17 20:29 Last Admin: 09/18/17 16:27 Dose: 100 mls/hr Insulin Aspart (Novolog) 0 unit SC ACHS [facility] PRN Reason: Protocol Last Admin: 09/18/17 17:15 Dose: 4 unit Insulin Glargine (Lantus) 10 unit SC HS [facility] Ondansetron HCl (Zofran Inj) 4 mg IVP Q6H PRN PRN Reason: Nausea/Vomiting Last Admin: 09/18/17 12:54 Dose: 4 mg Sodium Hypochlorite (Dakins Solution 0.125%) 1 appl TOP QSHIFT [facility] Last Admin: 09/18/17 05:21 Dose: Not Given Tramadol HCl (Ultram) 50 mg PO Q6H PRN PRN Reason: Pain, moderate (4-7) Last Admin: 09/18/17 16:26 Dose: 50 mg - Labs Labs: 09/18/17 08:01 09/18/17 17:19 Assessment and Plan (1) Abdominal pain Status: Acute (2) Back pain Status: Acute (3) Diarrhea Status: Acute (4) Dizziness Status: Acute (5) Headache Status: Acute (6) Homeless single person Status: Acute (7) Hypoglycemia Status: Acute (8) Hypoglycemia Status: Acute (9) Hypoglycemia due to type 1 diabetes mellitus Status: Acute (10) Hypothermia Status: Acute (11) Nausea Status: Acute (12) Near syncope Status: Acute (13) Orthostatic hypotension Status: Acute (14) Prophylactic measure Status: Acute (15) Tachycardia Status: Acute (16) Uncontrolled diabetes mellitus Status: Acute (17) Uncontrolled type 1 diabetes mellitus Status: Acute (18) Diabetes Status: Chronic (19) Diabetic foot ulcer Status: Chronic (20) History of hypertension Status: Chronic (21) Hypertension Status: Chronic (22) Seizure Status: Suspected - Assessment and Plan (Free Text) Plan: Patient examined. Patient medical. Continue piperacillin tazobactam. Continue sliding-scale insulin. Continue supportive medications.
[2017-09-18] MEDS: Piperacill/Tazo 3.375gm in Dex 3.375 GM/50 ML BAG IVPB SCH (19:13)
--- NOTE | 2017-09-18 19:14 | CP.PCM.PN ---
Subjective - Date & Time of Evaluation Date of Evaluation: 09/18/17 Time of Evaluation: 07:00 - Subjective Subjective: await angio results debridement if angio favorable Objective - Vital Signs/Intake and Output Vital Signs (last 24 hours): Temp Pulse Resp BP Pulse Ox 98.1 F 102 H 20 152/99 H 96 09/18/17 15:18 09/18/17 15:18 09/18/17 15:18 09/18/17 15:18 09/18/17 15:18 Intake and Output: 09/18/17 09/19/17 18:59 06:59 Intake Total 600 Balance 600 - Medications Medications: Current Medications Amlodipine Besylate (Norvasc) 10 mg PO DAILY [facility] Last Admin: 09/18/17 10:33 Dose: 10 mg Enalapril Maleate (Vasotec) 10 mg PO DAILY [facility] Last Admin: 09/18/17 10:33 Dose: 10 mg Enoxaparin Sodium (Lovenox) 30 mg SC DAILY [facility] Last Admin: 09/18/17 10:32 Dose: 30 mg Piperacillin Sod/Tazobactam Sod (Zosyn 3.375 Gm Iv Premix) 3.375 gm in 50 mls @ 100 mls/hr IVPB Q6H [facility] Sodium Chloride (Sodium Chloride 0.9%) 500 mls @ 100 mls/hr IV .Q5H [facility] Stop: 09/18/17 20:29 Last Admin: 09/18/17 16:27 Dose: 100 mls/hr Insulin Aspart (Novolog) 0 unit SC ACHS [facility] PRN Reason: Protocol Last Admin: 09/18/17 17:15 Dose: 4 unit Insulin Glargine (Lantus) 10 unit SC HS [facility] Ondansetron HCl (Zofran Inj) 4 mg IVP Q6H [facility] PRN Reason: Nausea/Vomiting Last Admin: 09/18/17 12:54 Dose: 4 mg Sodium Hypochlorite (Dakins Solution 0.125%) 1 appl TOP QSHIFT [facility] Last Admin: 09/18/17 05:21 Dose: Not Given Tramadol HCl (Ultram) 50 mg PO Q6H [facility] PRN Reason: Pain, moderate (4-7) Last Admin: 09/18/17 16:26 Dose: 50 mg - Labs Labs: 09/18/17 08:01 09/18/17 17:19 - Constitutional Appears: Non-toxic, Chronically Ill - Eye Exam Eye Exam: PERRL - ENT Exam ENT Exam: Mucous Membranes Dry - Neck Exam Neck Exam: absent: Lymphadenopathy - Respiratory Exam Respiratory Exam: Decreased Breath Sounds - Cardiovascular Exam Cardiovascular Exam: REGULAR RHYTHM - GI/Abdominal Exam GI & Abdominal Exam: Distended - Rectal Exam Rectal Exam: Deferred - Exam Exam: NORMAL INSPECTION Assessment and Plan (1) Hypoglycemia Status: Acute (2) Diabetic foot ulcer Status: Chronic - Assessment and Plan (Free Text) Assessment: cont IV antibiotics , wound care
[2017-09-18] MEDS: (Lantus) Insulin Glargine, Recombinant SC SCH (22:00)
[2017-09-19] MEDS: Piperacill/Tazo 3.375gm in Dex 3.375 GM/50 ML BAG IVPB SCH ×4 (00:16→18:47)
[2017-09-19] MEDS: (Novolog) Insulin Aspart, Recombinant 100 u/ml 10 ml vial SC SCH ×6 (09:11→21:47)
--- NOTE | 2017-09-19 10:04 | CP.PCM.PN ---
<RamosAlmaShanaShiv - Last Filed: 09/19/17 11:34> Subjective - Date & Time of Evaluation Date of Evaluation: 09/19/17 Time of Evaluation: 10:25 - Subjective Subjective: Podiatry note for Dr. Myles 27 yo male patient with PMHx of DM type I was seen at bedside this morning concerning non-healing wounds to Left foot. Patient is resting comfortably in bed this morning. AAO x3, dressings to Left foot remains clean, dry and intact. Patient denies of any pain to the wounds. Patient denies of any N/V/F/C or SOB today. Objective - Vital Signs/Intake and Output Vital Signs (last 24 hours): Temp Pulse Resp BP Pulse Ox 98.0 F 96 H 20 159/108 H 95 09/19/17 07:35 09/19/17 07:35 09/19/17 07:35 09/19/17 07:35 09/19/17 07:35 Intake and Output: 09/19/17 09/19/17 06:59 18:59 Intake Total 1000 Balance 1000 - Medications Medications: Current Medications Amlodipine Besylate (Norvasc) 10 mg PO DAILY [facility] Last Admin: 09/18/17 10:33 Dose: 10 mg Enalapril Maleate (Vasotec) 10 mg PO DAILY [facility] Last Admin: 09/18/17 10:33 Dose: 10 mg Enoxaparin Sodium (Lovenox) 30 mg SC DAILY [facility] Last Admin: 09/18/17 10:32 Dose: 30 mg Piperacillin Sod/Tazobactam Sod (Zosyn 3.375 Gm Iv Premix) 3.375 gm in 50 mls @ 100 mls/hr IVPB Q6H [facility] Last Admin: 09/19/17 06:06 Dose: 100 mls/hr Insulin Aspart (Novolog) 0 unit SC ACHS [facility] PRN Reason: Protocol Last Admin: 09/19/17 09:11 Dose: 5 unit Insulin Aspart (Novolog) 5 unit SC AC [facility] Insulin Glargine (Lantus) 10 unit SC HS [facility] Last Admin: 09/18/17 22:00 Dose: 10 units Ondansetron HCl (Zofran Inj) 4 mg IVP Q6H PRN PRN Reason: Nausea/Vomiting Last Admin: 09/18/17 19:13 Dose: 4 mg Sodium Hypochlorite (Dakins Solution 0.125%) 1 appl TOP QSHIFT [facility] Last Admin: 09/19/17 05:01 Dose: Not Given Tramadol HCl (Ultram) 50 mg PO Q6H PRN PRN Reason: Pain, moderate (4-7) Last Admin: 09/18/17 16:26 Dose: 50 mg - Labs Labs: 09/18/17 08:01 09/18/17 17:19 - Constitutional Appears: Well, Non-toxic, No Acute Distress - Head Exam Head Exam: ATRAUMATIC - Extremities Exam Additional comments: Left lower extremity exam DERM: Open wound noted to dorsal aspect of left foot 1st metatarsal diaphysis measuring 3cm x 2cm x 1.5cm. EHL tendon exposed, PTB. Wound base appears mostly fibrotic. Mild purulent drainage noted. Mal-odor noted. Erythema noted around the wound. Consistent with Cantu II at the least. Another open wound noted to posterior aspect of Left heel measuring 4.5cm x 3cm x 0.2cm with granular base. Wound appears superficial with no drainage, no mal- odor, no purulent drainage. No PTB VASC: Palpable DP and PT noted bilaterally 1/4. 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 Myles labs and vitals reviewed; afebrile Xray reveals no sign of OM Left foot dressing changed with Betadine, DSD. Dakin solution ordered is needs to be by bedside. Left foot WCX; Proteus Mirabilis, Beta Hymolytic Strep Group B CT angio result pending. Podiatry will plan for Right foot wound debridement after Vascular input redarding CT angio Podiatry will continue to follow inhouse <Manny Myles - Last Filed: 09/19/17 19:09> Objective - Vital Signs/Intake and Output Vital Signs (last 24 hours): Temp Pulse Resp BP Pulse Ox 97.5 F L 88 20 128/80 98 10/27/17 16:33 09/19/17 16:33 09/19/17 16:33 09/19/17 16:33 09/19/17 16:33 - Medications Medications: Current Medications Amlodipine Besylate (Norvasc) 10 mg PO DAILY [facility] Last Admin: 09/19/17 13:09 Dose: 10 mg Enalapril Maleate (Vasotec) 10 mg PO DAILY [facility] Last Admin: 09/19/17 13:08 Dose: 10 mg Enoxaparin Sodium (Lovenox) 30 mg SC DAILY [facility] Last Admin: 09/19/17 13:09 Dose: 30 mg Piperacillin Sod/Tazobactam Sod (Zosyn 3.375 Gm Iv Premix) 3.375 gm in 50 mls @ 100 mls/hr IVPB Q6H [facility] Last Admin: 09/19/17 18:47 Dose: 100 mls/hr Insulin Aspart (Novolog) 0 unit SC ACHS [facility] PRN Reason: Protocol Last Admin: 09/19/17 17:30 Dose: Not Given Insulin Aspart (Novolog) 5 unit SC AC [facility] Last Admin: 09/19/17 18:48 Dose: 5 unit Insulin Glargine (Lantus) 10 unit SC HS [facility] Last Admin: 09/18/17 22:00 Dose: 10 units Ondansetron HCl (Zofran Inj) 4 mg IVP Q6H PRN PRN Reason: Nausea/Vomiting Last Admin: 09/18/17 19:13 Dose: 4 mg Sodium Hypochlorite (Dakins Solution 0.125%) 1 appl TOP QSHIFT [facility] Last Admin: 09/19/17 14:08 Dose: Not Given Tramadol HCl (Ultram) 50 mg PO Q6H PRN PRN Reason: Pain, moderate (4-7) Last Admin: 09/19/17 14:45 Dose: 50 mg - Labs Labs: 09/18/17 08:01 09/18/17 17:19 Attending/Attestation - Attestation I have personally seen and examined this patient.: Yes I have fully participated in the care of the patient.: Yes I have reviewed all pertinent clinical information, including history, physical exam and plan: Yes
[2017-09-19] MEDS: Enoxaparin 30 mg Syringe SC SCH (13:09)
--- NOTE | 2017-09-19 13:52 | CP.PCM.PN ---
Subjective - Date & Time of Evaluation Date of Evaluation: 09/19/17 Time of Evaluation: 13:51 - Subjective Subjective: cta reviewed official report pending no significant occlusive disease Objective - Vital Signs/Intake and Output Vital Signs (last 24 hours): Temp Pulse Resp BP Pulse Ox 98.0 F 96 H 20 154/120 H 95 09/19/17 07:35 09/19/17 07:35 09/19/17 07:35 09/19/17 13:08 09/19/17 07:35 Intake and Output: 09/19/17 09/19/17 06:59 18:59 Intake Total 1000 Balance 1000 - Medications Medications: Current Medications Amlodipine Besylate (Norvasc) 10 mg PO DAILY [facility] Last Admin: 09/19/17 13:09 Dose: 10 mg Enalapril Maleate (Vasotec) 10 mg PO DAILY [facility] Last Admin: 09/19/17 13:08 Dose: 10 mg Enoxaparin Sodium (Lovenox) 30 mg SC DAILY [facility] Last Admin: 09/19/17 13:09 Dose: 30 mg Piperacillin Sod/Tazobactam Sod (Zosyn 3.375 Gm Iv Premix) 3.375 gm in 50 mls @ 100 mls/hr IVPB Q6H [facility] Last Admin: 09/19/17 06:06 Dose: 100 mls/hr Insulin Aspart (Novolog) 0 unit SC ACHS [facility] PRN Reason: Protocol Last Admin: 09/19/17 13:07 Dose: 6 unit Insulin Aspart (Novolog) 5 unit SC AC [facility] Last Admin: 09/19/17 13:06 Dose: 5 unit Insulin Glargine (Lantus) 10 unit SC HS [facility] Last Admin: 09/18/17 22:00 Dose: 10 units Ondansetron HCl (Zofran Inj) 4 mg IVP Q6H PRN PRN Reason: Nausea/Vomiting Last Admin: 09/18/17 19:13 Dose: 4 mg Sodium Hypochlorite (Dakins Solution 0.125%) 1 appl TOP QSHIFT [facility] Last Admin: 09/19/17 05:01 Dose: Not Given Tramadol HCl (Ultram) 50 mg PO Q6H PRN PRN Reason: Pain, moderate (4-7) Last Admin: 09/18/17 16:26 Dose: 50 mg - Labs Labs: 09/18/17 08:01 09/18/17 17:19
--- NOTE | 2017-09-19 13:56 | CT ---
PROCEDURE: CT Angiography Abdomen, Pelvis and Lower Extremity with Contrast HISTORY: non-healing LLE wound COMPARISON: None. TECHNIQUE: Technique: CT angiography of the abdomen, pelvis and bilateral lower extremities performed in the arterial phase of enhancement. Coronal and sagittal reformats, and well as rotating MIP images of the vessels generated at the workstation. Intravenous contrast dose: 150 milliliters Visipaque 320 Radiation dose: Total exam DLP = 1044.16 MGy-cm. This CT exam was performed using one or more of the following dose reduction techniques: Automated exposure control, adjustment of the mA and/or kV according to patient size, and/or use of iterative reconstruction technique. FINDINGS: CT ANGIOGRAPHY: ABDOMINAL AORTA:: The abdominal was unremarkable. MAJOR AORTIC BRANCHES: Celiac [place]: Unremarkable. Superior mesenteric artery: Unremarkable. Inferior mesenteric artery: Unremarkable. Renal arteries: Unremarkable. PELVIC ARTERIES: Right Common Iliac: Unremarkable. Right External Iliac: Unremarkable. Right Internal Iliac: Unremarkable. Left Common Iliac: Unremarkable. Left External Iliac: Unremarkable. Left Internal Iliac: Unremarkable. RIGHT LOWER EXTREMITY ARTERIES: Right Common Femoral: Unremarkable. Right Superficial Femoral: Unremarkable. Right Profunda Femoris: Unremarkable. Right Popliteal:Unremarkable. Right Anterior Tibial: Unremarkable. Right Tibioperoneal Trunk: Unremarkable. Right Posterior Tibial: Unremarkable. Right Peroneal: Unremarkable. Right dorsalis pedis : Unremarkable. LEFT LOWER EXTREMITY ARTERIES: Left Common Femoral: Unremarkable. Left Superficial Femoral: Unremarkable. Left Profunda Femoris: Unremarkable. Left Popliteal: Unremarkable. Left Anterior Tibial: Unremarkable. Left Tibioperoneal Trunk: Unremarkable. Left Posterior Tibial: Unremarkable. Left Peronea: Unremarkable. Left Dorsalis pedis: Unremarkable. NON-ANGIOGRAPHIC ASPECT OF THE EXAM: LOWER THORAX: Unremarkable. LIVER: Unremarkable. No gross lesion or ductal dilatation. GALLBLADDER AND BILE DUCTS: Unremarkable. PANCREAS: Unremarkable. No gross lesion or ductal dilatation. SPLEEN: Unremarkable. ADRENALS: Unremarkable. No mass. KIDNEYS AND URETERS: Unremarkable. No hydronephrosis. No solid mass. STOMACH AND BOWEL: Limited evaluation without PO contrast. Obvious wall thickening. APPENDIX: Not visualized. PERITONEUM: Unremarkable. No free fluid. No free air. LYMPH NODES: Unremarkable. No enlarged lymph nodes. BLADDER: Unremarkable. REPRODUCTIVE: Unremarkable. BONES: No acute fracture. OTHER FINDINGS: None. IMPRESSION: Unremarkable CT angiogram of the abdomen pelvis and bilateral lower extremities. There is no evidence of peripheral arterial disease. There is normal three-vessel runoff in both right and left lower extremities.
--- NOTE | 2017-09-19 17:04 | CARD ---
APPROVED REPORT EKG Measurement Heart [id number] ID [id number] <Conclusion> Normal sinus rhythm Nonspecific ST and T wave abnormality Prolonged QT Abnormal ECG
--- NOTE | 2017-09-19 19:13 | CP.PCM.PN ---
Subjective - Date & Time of Evaluation Date of Evaluation: 09/19/17 Time of Evaluation: 09:00 - Subjective Subjective: clinically same Objective - Vital Signs/Intake and Output Vital Signs (last 24 hours): Temp Pulse Resp BP Pulse Ox 97.5 F L 88 20 128/80 98 09/19/17 16:33 09/19/17 16:33 09/19/17 16:33 09/19/17 16:33 09/19/17 16:33 - Medications Medications: Current Medications Amlodipine Besylate (Norvasc) 10 mg PO DAILY [facility] Last Admin: 09/19/17 13:09 Dose: 10 mg Enalapril Maleate (Vasotec) 10 mg PO DAILY [facility] Last Admin: 09/19/17 13:08 Dose: 10 mg Enoxaparin Sodium (Lovenox) 30 mg SC DAILY [facility] Last Admin: 09/19/17 13:09 Dose: 30 mg Piperacillin Sod/Tazobactam Sod (Zosyn 3.375 Gm Iv Premix) 3.375 gm in 50 mls @ 100 mls/hr IVPB Q6H [facility] Last Admin: 09/19/17 18:47 Dose: 100 mls/hr Insulin Aspart (Novolog) 0 unit SC ACHS [facility] PRN Reason: Protocol Last Admin: 09/19/17 17:30 Dose: Not Given Insulin Aspart (Novolog) 5 unit SC AC [facility] Last Admin: 09/19/17 18:48 Dose: 5 unit Insulin Glargine (Lantus) 10 unit SC HS [facility] Last Admin: 09/18/17 22:00 Dose: 10 units Ondansetron HCl (Zofran Inj) 4 mg IVP Q6H PRN PRN Reason: Nausea/Vomiting Last Admin: 09/18/17 19:13 Dose: 4 mg Sodium Hypochlorite (Dakins Solution 0.125%) 1 appl TOP QSHIFT [facility] Last Admin: 09/19/17 14:08 Dose: Not Given Tramadol HCl (Ultram) 50 mg PO Q6H PRN PRN Reason: Pain, moderate (4-7) Last Admin: 09/19/17 14:45 Dose: 50 mg - Labs Labs: 09/18/17 08:01 09/18/17 17:19 - Constitutional Appears: Well - Head Exam Head Exam: ATRAUMATIC, NORMAL INSPECTION, NORMOCEPHALIC - Eye Exam Eye Exam: EOMI, Normal appearance, PERRL Pupil Exam: NORMAL ACCOMODATION, PERRL - ENT Exam ENT Exam: Mucous Membranes Moist, Normal Exam - Neck Exam Neck Exam: Full ROM, Normal Inspection. absent: Lymphadenopathy - Respiratory Exam Respiratory Exam: Decreased Breath Sounds - Cardiovascular Exam Cardiovascular Exam: REGULAR RHYTHM, +S1, +S2 - GI/Abdominal Exam GI & Abdominal Exam: Soft, Diminished Bowel Sounds - Rectal Exam Rectal Exam: Deferred Assessment and Plan (1) Abdominal pain Status: Acute (2) Back pain Status: Acute (3) Diarrhea Status: Acute (4) Dizziness Status: Acute (5) Headache Status: Acute (6) Homeless single person Status: Acute (7) Hypoglycemia Status: Acute (8) Hypoglycemia Status: Acute (9) Hypoglycemia due to type 1 diabetes mellitus Status: Acute (10) Hypothermia Status: Acute (11) Nausea Status: Acute (12) Near syncope Status: Acute (13) Orthostatic hypotension Status: Acute (14) Prophylactic measure Status: Acute (15) Tachycardia Status: Acute (16) Uncontrolled diabetes mellitus Status: Acute (17) Uncontrolled type 1 diabetes mellitus Status: Acute (18) Diabetes Status: Chronic (19) Diabetic foot ulcer Status: Chronic (20) History of hypertension Status: Chronic (21) Hypertension Status: Chronic (22) Seizure Status: Suspected - Assessment and Plan (Free Text) Plan: Patient examined. Patient better. Continue piperacillin tazobactam. Continue sliding-scale insulin. Continue supportive care.
[2017-09-19] MEDS: (Lantus) Insulin Glargine, Recombinant SC SCH (22:33)
[2017-09-20] MEDS: Piperacill/Tazo 3.375gm in Dex 3.375 GM/50 ML BAG IVPB SCH ×4 (00:25→18:48)
[2017-09-20] MEDS: (Novolog) Insulin Aspart, Recombinant 100 u/ml 10 ml vial SC SCH ×7 (09:32→21:53)
[2017-09-20] MEDS: Enoxaparin 30 mg Syringe SC SCH (09:35)
--- NOTE | 2017-09-20 10:28 | CP.PCM.PN ---
Subjective - Date & Time of Evaluation Date of Evaluation: 09/20/17 Time of Evaluation: 08:40 - Subjective Subjective: clinically same Objective - Vital Signs/Intake and Output Vital Signs (last 24 hours): Temp Pulse Resp BP Pulse Ox 97.3 F L 93 H 20 121/84 96 09/20/17 08:25 09/20/17 09:35 09/20/17 08:25 09/20/17 09:35 09/20/17 08:25 Intake and Output: 09/20/17 09/20/17 06:59 18:59 Intake Total 700 Balance 700 - Medications Medications: Current Medications Amlodipine Besylate (Norvasc) 10 mg PO DAILY [facility] Last Admin: 09/20/17 09:34 Dose: 10 mg Enalapril Maleate (Vasotec) 10 mg PO DAILY [facility] Last Admin: 09/20/17 09:34 Dose: 10 mg Enoxaparin Sodium (Lovenox) 30 mg SC DAILY [facility] Last Admin: 09/20/17 09:35 Dose: 30 mg Piperacillin Sod/Tazobactam Sod (Zosyn 3.375 Gm Iv Premix) 3.375 gm in 50 mls @ 100 mls/hr IVPB Q6H [facility] Last Admin: 09/20/17 06:18 Dose: 100 mls/hr Insulin Aspart (Novolog) 0 unit SC ACHS [facility] PRN Reason: Protocol Last Admin: 09/20/17 09:32 Dose: 1 unit Insulin Aspart (Novolog) 5 unit SC AC [facility] Last Admin: 09/20/17 09:32 Dose: 5 unit Insulin Glargine (Lantus) 10 unit SC HS [facility] Last Admin: 09/19/17 22:33 Dose: 10 units Ondansetron HCl (Zofran Inj) 4 mg IVP Q6H PRN PRN Reason: Nausea/Vomiting Last Admin: 09/18/17 19:13 Dose: 4 mg Sodium Hypochlorite (Dakins Solution 0.125%) 1 appl TOP QSHIFT [facility] Last Admin: 09/20/17 06:18 Dose: Not Given Tramadol HCl (Ultram) 50 mg PO Q6H PRN PRN Reason: Pain, moderate (4-7) Last Admin: 09/19/17 14:45 Dose: 50 mg - Labs Labs: 09/18/17 08:01 09/18/17 17:19 - Constitutional Appears: Well - Head Exam Head Exam: ATRAUMATIC, NORMAL INSPECTION, NORMOCEPHALIC - Eye Exam Eye Exam: EOMI, Normal appearance, PERRL Pupil Exam: NORMAL ACCOMODATION, PERRL - ENT Exam ENT Exam: Mucous Membranes Moist, Normal Exam - Neck Exam Neck Exam: Full ROM, Normal Inspection. absent: Lymphadenopathy - Respiratory Exam Respiratory Exam: Decreased Breath Sounds - Cardiovascular Exam Cardiovascular Exam: REGULAR RHYTHM, +S1, +S2 - GI/Abdominal Exam GI & Abdominal Exam: Soft, Diminished Bowel Sounds - Rectal Exam Rectal Exam: Deferred Assessment and Plan (1) Abdominal pain Status: Acute (2) Back pain Status: Acute (3) Diarrhea Status: Acute (4) Dizziness Status: Acute (5) Headache Status: Acute (6) Homeless single person Status: Acute (7) Hypoglycemia Status: Acute (8) Hypoglycemia Status: Acute (9) Hypoglycemia due to type 1 diabetes mellitus Status: Acute (10) Hypothermia Status: Acute (11) Nausea Status: Acute (12) Near syncope Status: Acute (13) Orthostatic hypotension Status: Acute (14) Prophylactic measure Status: Acute (15) Tachycardia Status: Acute (16) Uncontrolled diabetes mellitus Status: Acute (17) Uncontrolled type 1 diabetes mellitus Status: Acute (18) Diabetes Status: Chronic (19) Diabetic foot ulcer Status: Chronic (20) History of hypertension Status: Chronic (21) Hypertension Status: Chronic (22) Seizure Status: Suspected - Assessment and Plan (Free Text) Plan: Patient examined. Patient better. Continue piperacillin tazobactam. Continue long and short-acting insulin. Continue sliding-scale insulin. Continue supportive care.
--- NOTE | 2017-09-20 12:16 | CP.PCM.PN ---
<Penny Ponce - Last Filed: 09/20/17 12:15> Subjective - Date & Time of Evaluation Date of Evaluation: 09/20/17 Time of Evaluation: 12:15 - Subjective Subjective: Podiatry note for Dr. Myles 27 yo male patient with PMHx of DM type I was seen at bedside this morning concerning non-healing wounds to Left foot. Patient is resting comfortably in bed this morning. AAO x3, dressings to Left foot remains clean, dry and intact. Patient denies of any pain to the wounds. Patient denies of any N/V/F/C or SOB today. Objective - Vital Signs/Intake and Output Vital Signs (last 24 hours): Temp Pulse Resp BP Pulse Ox 97.3 F L 93 H 20 121/84 96 09/20/17 08:25 09/20/17 09:35 09/20/17 08:25 09/20/17 09:35 09/20/17 08:25 Intake and Output: 09/20/17 09/20/17 06:59 18:59 Intake Total 700 Balance 700 - Medications Medications: Current Medications Amlodipine Besylate (Norvasc) 10 mg PO DAILY [facility] Last Admin: 09/20/17 09:34 Dose: 10 mg Enalapril Maleate (Vasotec) 10 mg PO DAILY [facility] Last Admin: 09/20/17 09:34 Dose: 10 mg Enoxaparin Sodium (Lovenox) 30 mg SC DAILY [facility] Last Admin: 09/20/17 09:35 Dose: 30 mg Piperacillin Sod/Tazobactam Sod (Zosyn 3.375 Gm Iv Premix) 3.375 gm in 50 mls @ 100 mls/hr IVPB Q6H [facility] Last Admin: 09/20/17 06:18 Dose: 100 mls/hr Insulin Aspart (Novolog) 0 unit SC ACHS [facility] PRN Reason: Protocol Last Admin: 09/20/17 09:32 Dose: 1 unit Insulin Aspart (Novolog) 5 unit SC AC [facility] Last Admin: 09/20/17 09:32 Dose: 5 unit Insulin Glargine (Lantus) 10 unit SC HS [facility] Last Admin: 09/19/17 22:33 Dose: 10 units Ondansetron HCl (Zofran Inj) 4 mg IVP Q6H PRN PRN Reason: Nausea/Vomiting Last Admin: 09/18/17 19:13 Dose: 4 mg Sodium Hypochlorite (Dakins Solution 0.125%) 1 appl TOP QSHIFT [facility] Last Admin: 09/20/17 06:18 Dose: Not Given Tramadol HCl (Ultram) 50 mg PO Q6H PRN PRN Reason: Pain, moderate (4-7) Last Admin: 09/19/17 14:45 Dose: 50 mg - Labs Labs: 09/18/17 08:01 09/18/17 17:19 - Constitutional Appears: Well, Non-toxic, No Acute Distress - Extremities Exam Additional comments: Left lower extremity exam DERM: Open wound noted to dorsal aspect of left foot 1st metatarsal diaphysis measuring 3cm x 2cm x 1.5cm. EHL tendon exposed, PTB. Wound base appears mostly fibrotic. Mild purulent drainage noted. Mal-odor noted. Erythema noted around the wound. Consistent with Cantu II at the least. Another open wound noted to posterior aspect of Left heel measuring 4.5cm x 3cm x 0.2cm with granular base. Wound appears superficial with no drainage, no mal- odor, no purulent drainage. No PTB VASC: Palpable DP and PT noted bilaterally 1/4. 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 Myles labs and vitals reviewed; afebrile Xray reveals no sign of OM Left foot dressing changed with Dakins, DSD. Left foot WCX; Proteus Mirabilis, Beta Hymolytic Strep Group B= CT angio shows 3 vessel runoff to lower extremities, no evidence of peripheral arterial disease Podiatry will plan for Right foot wound debridement with graft application on friday needs medical optimization by primary team patient to be NPO after midnight on friday night Podiatry will continue to follow inhouse <Manny Myles - Last Filed: 09/20/17 12:46> Objective - Vital Signs/Intake and Output Vital Signs (last 24 hours): Temp Pulse Resp BP Pulse Ox 97.3 F L 93 H 20 121/84 96 09/20/17 08:25 09/20/17 09:35 09/20/17 08:25 09/20/17 09:35 09/20/17 08:25 Intake and Output: 09/20/17 09/20/17 06:59 18:59 Intake Total 700 Balance 700 - Medications Medications: Current Medications Amlodipine Besylate (Norvasc) 10 mg PO DAILY [facility] Last Admin: 09/20/17 09:34 Dose: 10 mg Enalapril Maleate (Vasotec) 10 mg PO DAILY [facility] Last Admin: 09/20/17 09:34 Dose: 10 mg Enoxaparin Sodium (Lovenox) 30 mg SC DAILY [facility] Last Admin: 09/20/17 09:35 Dose: 30 mg Piperacillin Sod/Tazobactam Sod (Zosyn 3.375 Gm Iv Premix) 3.375 gm in 50 mls @ 100 mls/hr IVPB Q6H [facility] Last Admin: 09/20/17 12:41 Dose: 100 mls/hr Insulin Aspart (Novolog) 0 unit SC ACHS [facility] PRN Reason: Protocol Last Admin: 09/20/17 12:32 Dose: Not Given Insulin Aspart (Novolog) 5 unit SC AC [facility] Last Admin: 09/20/17 12:33 Dose: Not Given Insulin Glargine (Lantus) 10 unit SC HS [facility] Last Admin: 09/19/17 22:33 Dose: 10 units Ondansetron HCl (Zofran Inj) 4 mg IVP Q6H PRN PRN Reason: Nausea/Vomiting Last Admin: 09/18/17 19:13 Dose: 4 mg Sodium Hypochlorite (Dakins Solution 0.125%) 1 appl TOP QSHIFT [facility] Last Admin: 09/20/17 06:18 Dose: Not Given Tramadol HCl (Ultram) 50 mg PO Q6H PRN PRN Reason: Pain, moderate (4-7) Last Admin: 09/19/17 14:45 Dose: 50 mg - Labs Labs: 09/18/17 08:01 09/18/17 17:19
--- NOTE | 2017-09-20 12:51 | CP.PCM.PN ---
Subjective - Date & Time of Evaluation Date of Evaluation: 09/20/17 Time of Evaluation: 12:47 - Subjective Subjective: Pt seen at bedside for f/u left foot dorsum foot and heel ulcer. Discussed with vascular that there is no need for further intervention and should proceed with debridement. Educated pt on different options. Pt elects for debridement of left foot and heel ulcer with application of skin graft. Pt understands that this is a limb salvage procedure and if healing is compromised future surgery and/or limb loss is possible. Pt understands that if the tendon needs to be cut, he will lose function of the left big toe. Pt understands and agrees. Contacted Dr. Fahad Ruiz for medical clearance. Pt is scheduled for Friday at 12:30pm. Will give NPO orders tomorrow. Objective - Vital Signs/Intake and Output Vital Signs (last 24 hours): Temp Pulse Resp BP Pulse Ox 97.3 F L 93 H 20 121/84 96 09/20/17 08:25 09/20/17 09:35 09/20/17 08:25 09/20/17 09:35 09/20/17 08:25 Intake and Output: 09/20/17 09/20/17 06:59 18:59 Intake Total 700 Balance 700 - Medications Medications: Current Medications Amlodipine Besylate (Norvasc) 10 mg PO DAILY [facility] Last Admin: 09/20/17 09:34 Dose: 10 mg Enalapril Maleate (Vasotec) 10 mg PO DAILY [facility] Last Admin: 09/20/17 09:34 Dose: 10 mg Enoxaparin Sodium (Lovenox) 30 mg SC DAILY [facility] Last Admin: 09/20/17 09:35 Dose: 30 mg Piperacillin Sod/Tazobactam Sod (Zosyn 3.375 Gm Iv Premix) 3.375 gm in 50 mls @ 100 mls/hr IVPB Q6H [facility] Last Admin: 09/20/17 12:41 Dose: 100 mls/hr Insulin Aspart (Novolog) 0 unit SC ACHS [facility] PRN Reason: Protocol Last Admin: 09/20/17 12:32 Dose: Not Given Insulin Aspart (Novolog) 5 unit SC AC [facility] Last Admin: 09/20/17 12:33 Dose: Not Given Insulin Glargine (Lantus) 10 unit SC HS [facility] Last Admin: 09/19/17 22:33 Dose: 10 units Ondansetron HCl (Zofran Inj) 4 mg IVP Q6H PRN PRN Reason: Nausea/Vomiting Last Admin: 09/18/17 19:13 Dose: 4 mg Sodium Hypochlorite (Dakins Solution 0.125%) 1 appl TOP QSHIFT [facility] Last Admin: 09/20/17 06:18 Dose: Not Given Tramadol HCl (Ultram) 50 mg PO Q6H PRN PRN Reason: Pain, moderate (4-7) Last Admin: 09/19/17 14:45 Dose: 50 mg - Labs Labs: 09/18/17 08:01 09/18/17 17:19
[2017-09-20] MEDS: (Lantus) Insulin Glargine, Recombinant SC SCH (22:09)
[2017-09-21] MEDS: Piperacill/Tazo 3.375gm in Dex 3.375 GM/50 ML BAG IVPB SCH ×4 (06:22→19:56)
[2017-09-21 08:50] LABS: BASO % 0.9 % (0.0-2.0); EOS # 0.1 K/uL (0.0-0.7); EOS % 2.3 % (0.0-4.0); LYMPH # 1.6 K/uL (1.0-4.3); MEAN CELL VOLUME 84.1 fL (80.0-94.0); MEAN CORPUSCULAR HGB CONC 33.3 g/dL (33.0-37.0); MEAN PLATELET VOLUME 8.7 fL (7.2-11.7); MONO # 0.4 K/uL (0.0-0.8); MONO % 9.3 % (0.0-10.0); RED CELL DISTRIBUTION WIDTH 15.7 % (11.5-14.5); WHITE BLOOD COUNT 4.6 K/uL (4.8-10.8)
[2017-09-21 08:51] LABS: INR 0.9
[2017-09-21 09:09] LABS: POTASSIUM 3.8 mmol/L (3.6-5.2)
[2017-09-21 09:11] LABS: ALB/GLOB RATIO 0.8 (1.0-2.1); BILIRUBIN,TOTAL 0.5 mg/dL (0.2-1.3); TOTAL PROTEIN 7.4 g/dL (6.3-8.3)
[2017-09-21 09:12] LABS: CALCIUM 8.8 mg/dl (8.6-10.4)
[2017-09-21] MEDS: (Novolog) Insulin Aspart, Recombinant 100 u/ml 10 ml vial SC SCH ×3 (10:58→16:55)
[2017-09-21] MEDS: Enoxaparin 30 mg Syringe SC SCH (10:58)
--- NOTE | 2017-09-21 13:49 | CP.PCM.PN ---
Subjective - Date & Time of Evaluation Date of Evaluation: 09/21/17 Time of Evaluation: 13:47 - Subjective Subjective: Podiatry note for Dr. Myles 27 yo male patient with PMHx of DM type I was seen at bedside this morning concerning non-healing wounds to Left foot. Patient is resting comfortably in bed this morning. AAO x3, dressings to Left foot remains clean, dry and intact. Patient denies of any pain to the wounds. Patient denies of any N/V/F/C or SOB today. Patient scheduled to go to OR tomorrow morning with Dr. Myles for wound debridement pending medical clearance. Objective - Vital Signs/Intake and Output Vital Signs (last 24 hours): Temp Pulse Resp BP Pulse Ox 97.4 F L 90 20 129/89 95 09/21/17 07:18 09/21/17 08:00 09/21/17 07:18 09/21/17 10:57 09/21/17 07:18 Intake and Output: 09/21/17 09/21/17 06:59 18:59 Intake Total 720 Balance 720 - Medications Medications: Current Medications Amlodipine Besylate (Norvasc) 10 mg PO DAILY [facility] Last Admin: 09/21/17 10:58 Dose: 10 mg Enalapril Maleate (Vasotec) 10 mg PO DAILY [facility] Last Admin: 09/21/17 10:57 Dose: 10 mg Enoxaparin Sodium (Lovenox) 30 mg SC DAILY [facility] Last Admin: 09/21/17 10:58 Dose: Not Given Piperacillin Sod/Tazobactam Sod (Zosyn 3.375 Gm Iv Premix) 3.375 gm in 50 mls @ 100 mls/hr IVPB Q6H [facility] Last Admin: 09/21/17 13:22 Dose: 100 mls/hr Insulin Aspart (Novolog) 0 unit SC ACHS [facility] PRN Reason: Protocol Last Admin: 09/21/17 13:21 Dose: 4 unit Insulin Glargine (Lantus) 10 unit SC HS [facility] Last Admin: 09/20/17 22:09 Dose: 10 units Ondansetron HCl (Zofran Inj) 4 mg IVP Q6H PRN PRN Reason: Nausea/Vomiting Last Admin: 09/18/17 19:13 Dose: 4 mg Sodium Hypochlorite (Dakins Solution 0.125%) 1 appl TOP QSHIFT [facility] Last Admin: 09/21/17 13:27 Dose: Not Given Tramadol HCl (Ultram) 50 mg PO Q6H PRN PRN Reason: Pain, moderate (4-7) Last Admin: 09/20/17 18:48 Dose: 50 mg - Labs Labs: 09/21/17 08:35 09/21/17 08:35 PT 10.7 SECONDS (9.7-12.2) 09/21/17 08:35 INR 0.9 09/21/17 08:35 - Constitutional Appears: Well, Non-toxic, No Acute Distress - Extremities Exam Additional comments: Left lower extremity exam DERM: Open wound noted to dorsal aspect of left foot 1st metatarsal diaphysis measuring 3cm x 2cm x 1.5cm. EHL tendon exposed, PTB. Wound base appears mostly fibrotic. Mild purulent drainage noted. Mal-odor noted. Erythema noted around the wound. Consistent with Cantu II at the least. Another open wound noted to posterior aspect of Left heel measuring 4.5cm x 3cm x 0.2cm with granular base. Wound appears superficial with no drainage, no mal- odor, no purulent drainage. No PTB VASC: Palpable DP and PT noted bilaterally 1/4. [employer] less than 3 seconds to all digits ORTHO: No pain on palpation to left foot NEURO: Gross sensation diminished secondary to diabetic neuropathy - Neurological Exam Neurological Exam: Alert, Awake, Oriented x3 - Psychiatric Exam Psychiatric exam: Normal Affect, Normal Mood Assessment and Plan - Assessment and Plan (Free Text) Assessment: 27 yo male patient with type I DM presenting with diabetic ulcerations to Left foot Plan: Patient was seen, evaluated at bedside discussed in detail with attending Dr. Myles labs and vitals reviewed; afebrile, WBC 4.6 Xray reveals no sign of OM Left foot dressing changed with Dakbrittney DSD. Left foot WCX; Proteus Mirabilis, Beta Hymolytic Strep Group B CT angio shows 3 vessel runoff to lower extremities, no evidence of peripheral arterial disease Patient tentatively scheduled for Right foot wound debridement with graft application on friday with Dr. Myles needs medical optimization by primary team, cardiac clearance patient to be NPO after midnight on friday night Lovenox held Podiatry will continue to follow inhouse
--- NOTE | 2017-09-21 15:53 | CP.PCM.PN ---
Subjective - Date & Time of Evaluation Date of Evaluation: 09/21/17 Time of Evaluation: 08:20 - Subjective Subjective: clinically same Objective - Vital Signs/Intake and Output Vital Signs (last 24 hours): Temp Pulse Resp BP Pulse Ox 97.4 F L 90 20 129/89 95 09/21/17 07:18 09/21/17 08:00 09/21/17 07:18 09/21/17 10:57 09/21/17 07:18 Intake and Output: 09/21/17 09/21/17 06:59 18:59 Intake Total 720 Balance 720 - Medications Medications: Current Medications Amlodipine Besylate (Norvasc) 10 mg PO DAILY [facility] Last Admin: 09/21/17 10:58 Dose: 10 mg Enalapril Maleate (Vasotec) 10 mg PO DAILY [facility] Last Admin: 09/21/17 10:57 Dose: 10 mg Enoxaparin Sodium (Lovenox) 30 mg SC DAILY [facility] Last Admin: 09/21/17 10:58 Dose: Not Given Piperacillin Sod/Tazobactam Sod (Zosyn 3.375 Gm Iv Premix) 3.375 gm in 50 mls @ 100 mls/hr IVPB Q6H [facility] Last Admin: 09/21/17 13:22 Dose: 100 mls/hr Insulin Aspart (Novolog) 0 unit SC ACHS [facility] PRN Reason: Protocol Last Admin: 09/21/17 13:21 Dose: 4 unit Insulin Glargine (Lantus) 10 unit SC HS [facility] Last Admin: 09/20/17 22:09 Dose: 10 units Ondansetron HCl (Zofran Inj) 4 mg IVP Q6H PRN PRN Reason: Nausea/Vomiting Last Admin: 09/18/17 19:13 Dose: 4 mg Sodium Hypochlorite (Dakins Solution 0.125%) 1 appl TOP QSHIFT [facility] Last Admin: 09/21/17 13:27 Dose: Not Given Tramadol HCl (Ultram) 50 mg PO Q6H PRN PRN Reason: Pain, moderate (4-7) Last Admin: 09/20/17 18:48 Dose: 50 mg - Labs Labs: 09/21/17 08:35 09/21/17 08:35 PT 10.7 SECONDS (9.7-12.2) 09/21/17 08:35 INR 0.9 09/21/17 08:35 Assessment and Plan (1) Abdominal pain Status: Acute (2) Back pain Status: Acute (3) Diarrhea Status: Acute (4) Dizziness Status: Acute (5) Headache Status: Acute (6) Homeless single person Status: Acute (7) Hypoglycemia Status: Acute (8) Hypoglycemia Status: Acute (9) Hypoglycemia due to type 1 diabetes mellitus Status: Acute (10) Hypothermia Status: Acute (11) Nausea Status: Acute (12) Near syncope Status: Acute (13) Orthostatic hypotension Status: Acute (14) Prophylactic measure Status: Acute (15) Tachycardia Status: Acute (16) Uncontrolled diabetes mellitus Status: Acute (17) Uncontrolled type 1 diabetes mellitus Status: Acute (18) Diabetes Status: Chronic (19) Diabetic foot ulcer Status: Chronic (20) History of hypertension Status: Chronic (21) Hypertension Status: Chronic (22) Seizure Status: Suspected - Assessment and Plan (Free Text) Plan: Patient examined. Patient better. Continue long-acting insulin. Continue sliding-scale insulin. Continue supportive care.
[2017-09-21] MEDS: (Lantus) Insulin Glargine, Recombinant SC SCH (21:54)
--- NOTE | 2017-09-21 23:45 | CP.PCM.CON ---
History of Present Illness - History of Present Illness History of Present Illness: CC: L foot wound HPI: 27M w. pmh of type I DM initially presented to ED for AMS 2/2 hypoglycemia. Pt states that he has had wound on his L foot for about 2 weeks. He states that he has been doing local wound care daily w. neosporin. Despite this, there has been no improvement. He states that the wound has been getting deeper, it is foul smelling, and occasionally drains pus. He denies any pain in the foot. He denies neuropathy. He denies F/C. Back in February/March he states that he had a more serious infection in his L leg which [place] [facility] he was in the hospital for about 1 month. 12 Pt ROS negative unless specified PMH: Type I DM PSH: debridement L leg for infection Meds: MAR reviewed NKDA Social: No ETOH/tobacco, +marijuana Fhx: Non-contributory Physical Exam - Constitutional Appears: Non-toxic, No Acute Distress - Head Exam Head Exam: ATRAUMATIC, NORMOCEPHALIC - Eye Exam Eye Exam: EOMI - ENT Exam ENT Exam: Mucous Membranes Moist - Neck Exam Neck exam: Positive for: Full Rom - Respiratory Exam Respiratory Exam: NORMAL BREATHING PATTERN. absent: Accessory Muscle Use, Respiratory Distress - GI/Abdominal Exam GI & Abdominal Exam: Soft. absent: Tenderness - Extremities Exam Additional comments: Dorsal medial portion of L foot over 1st MTPJ ~ 2.5x1cm wound, necrotic/ fibrinous base, +malodor, sensation/motor fxn intact - Neurological Exam Neurological exam: Alert, Oriented x3 Past Patient History - Infectious Disease Hx of Infectious Diseases: None - Tetanus Immunizations Tetanus Immunization: Unknown - Past Medical History & Family History Past Medical History?: Yes - Past Social History Smoking Status: Never Smoked - CARDIAC Hx Hypercholesterolemia: No Hx Hypertension: Yes Hx Mitral Valve Prolapse: No Hx Pacemaker: No Hx Peripheral Edema: No - PULMONARY Hx Asthma: No Hx Bronchitis: No Hx Chronic Obstructive Pulmonary Disease (COPD): No Hx Emphysema: No Hx Pneumonia: No Hx Pulmonary Embolism: No Hx Sleep Apnea: No - NEUROLOGICAL Hx Alzheimer's Disease: No Hx Dementia: No Hx Migraine: No Hx Multiple Sclerosis: No Hx Parkinson's Disease: No Hx Seizures: No Hx Transient Ischemic Attacks (TIA): No - HEENT Hx HEENT Problems: No Hx Blind: No Hx Cataracts: No Hx Deafness: No Hx Difficulty Chewing: No Hx Epistaxis: No Hx Glaucoma: No Hx Macular Degeneration: No - RENAL Hx Chronic Kidney Disease: No Hx Kidney Stones: No - ENDOCRINE/METABOLIC Hx Hyperthyroidism: No Hx Hypothyroidism: No - HEMATOLOGICAL/ONCOLOGICAL Hx Anemia: No Hx Human Immunodeficiency Virus (HIV): No Hx Sickle Cell Disease: No - INTEGUMENTARY Hx Dermatological Problems: Yes Hx Eczema: Yes - MUSCULOSKELETAL/RHEUMATOLOGICAL Hx Arthritis: No Hx Fractures: Yes (R shoulder 2015) Hx Osteoporosis: No Hx Rheumatoid Arthritis: No - GASTROINTESTINAL Hx Crohn's Disease: No Hx Diverticulitis: No Hx Gall Bladder Disease: No Hx Gastritis: No Hx Pancreatitis: No - GENITOURINARY/GYNECOLOGICAL Hx Sexually Transmitted Disorders: No - PSYCHIATRIC Hx Anxiety: No Hx Bipolar Disorder: No Hx Depression: No Hx Paranoia: No Hx Post Traumatic Stress Disorder: No Hx Schizophrenia: No Hx Substance Use: Yes (marijuana) - SURGICAL HISTORY Hx Appendectomy: No Hx Carotid Endarterectomy: No Hx Cholecystectomy: No Hx Coronary Artery Bypass Graft: No Hx Coronary Stent: No Hx Tonsillectomy: No - ANESTHESIA Hx Anesthesia: No Hx Anesthesia Reactions: No Hx Malignant Hyperthermia: No Meds Allergies/Adverse Reactions: Allergies Allergy/AdvReac Type Severity Reaction Status Date / Time pollen extracts Allergy Intermediate ITCHING Verified 09/15/17 07:56 - Medications Medications: Current Medications Amlodipine Besylate (Norvasc) 10 mg PO DAILY [facility] Last Admin: 09/21/17 10:58 Dose: 10 mg Enalapril Maleate (Vasotec) 10 mg PO DAILY [facility] Last Admin: 09/21/17 10:57 Dose: 10 mg Enoxaparin Sodium (Lovenox) 30 mg SC DAILY [facility] Last Admin: 09/21/17 10:58 Dose: Not Given Piperacillin Sod/Tazobactam Sod (Zosyn 3.375 Gm Iv Premix) 3.375 gm in 50 mls @ 100 mls/hr IVPB Q6H [facility] Last Admin: 09/21/17 19:56 Dose: Not Given Insulin Aspart (Novolog) 0 unit SC [facility] PRN Reason: Protocol Last Admin: 09/21/17 16:55 Dose: Not Given Insulin Glargine (Lantus) 10 unit SC [facility] Last Admin: 09/21/17 21:54 Dose: Not Given Ondansetron HCl (Zofran Inj) 4 mg IVP Q6H PRN PRN Reason: Nausea/Vomiting Last Admin: 09/18/17 19:13 Dose: 4 mg Sodium Hypochlorite (Dakins Solution 0.125%) 1 appl TOP QSHIFT [facility] Last Admin: 09/21/17 21:54 Dose: Not Given Tramadol HCl (Ultram) 50 mg PO Q6H PRN PRN Reason: Pain, moderate (4-7) Last Admin: 09/20/17 18:48 Dose: 50 mg Results - Vital Signs Recent Vital Signs: Last Vital Signs Temp 97.4 F L 09/21/17 07:18 Pulse 90 09/21/17 08:00 Resp 20 09/21/17 07:18 BP 129/89 09/21/17 10:57 Pulse Ox 95 09/21/17 07:18 - Labs Result Diagrams: 09/21/17 08:35 09/21/17 08:35 Labs: Laboratory Results - last 24 hr 09/21/17 09/21/17 09/21/17 00:57 03:16 06:35 WBC RBC Hgb Hct MCV MCH MCHC RDW Plt Count MPV Neut % (Auto) Lymph % (Auto) [place] % (Auto) Eos % (Auto) Baso % (Auto) Neut # Lymph # [place] # Eos # Baso # PT INR Sodium Potassium Chloride Carbon Dioxide Anion Gap BUN Creatinine Est GFR ( Amer) Est GFR (Non-Af Amer) POC Glucose (mg/dL) 78 144 H 175 H Random Glucose Calcium Total Bilirubin AST ALT Alkaline Phosphatase Total Protein Albumin Globulin Albumin/Globulin Ratio 09/21/17 09/21/17 09/21/17 08:35 08:35 08:35 WBC 4.6 L RBC 3.33 L Hgb 9.3 L Hct 28.0 L MCV 84.1 MCH 28.0 MCHC 33.3 RDW 15.7 H Plt Count 253 MPV 8.7 Neut % (Auto) 53.5 Lymph % (Auto) 34.0 [place] % (Auto) 9.3 Eos % (Auto) 2.3 Baso % (Auto) 0.9 Neut # 2.5 Lymph # 1.6 [place] # 0.4 Eos # 0.1 Baso # 0.0 PT 10.7 INR 0.9 Sodium 134 Potassium 3.8 Chloride 96 L Carbon Dioxide 29 Anion Gap 12 BUN 29 H Creatinine 1.7 H Est GFR ( Amer) 59 Est GFR (Non-Af Amer) 49 POC Glucose (mg/dL) Random Glucose 165 H Calcium 8.8 Total Bilirubin 0.5 AST 29 ALT 31 Alkaline Phosphatase 94 Total Protein 7.4 Albumin 3.3 L Globulin 4.1 H Albumin/Globulin Ratio 0.8 L 09/21/17 09/21/17 09/21/17 11:29 17:00 20:56 WBC RBC Hgb Hct MCV MCH MCHC RDW Plt Count MPV Neut % (Auto) Lymph % (Auto) [place] % (Auto) Eos % (Auto) Baso % (Auto) Neut # Lymph # [place] # Eos # Baso # PT INR Sodium Potassium Chloride Carbon Dioxide Anion Gap BUN Creatinine Est GFR ( Amer) Est GFR (Non-Af Amer) POC Glucose (mg/dL) 341 H 177 H 254 H Random Glucose Calcium Total Bilirubin AST ALT Alkaline Phosphatase Total Protein Albumin Globulin Albumin/Globulin Ratio Assessment & Plan - Assessment and Plan (Free Text) Assessment: 27 Male with no cardiac symptoms Type 1 DM Active physically/recently imapaire due to the would EKG: NSR Cardiac risk for debrediment surgery: Moderate If the benefit outweighs the risk please proceed with the surgery
[2017-09-22] MEDS: Piperacill/Tazo 3.375gm in Dex 3.375 GM/50 ML BAG IVPB SCH ×4 (00:18→18:15)
[2017-09-22] MEDS: (Novolog) Insulin Aspart, Recombinant 100 u/ml 10 ml vial SC SCH ×4 (07:30→22:07)
[2017-09-22 12:28] LABS: EOS # 0.1 K/uL (0.0-0.7); EOS % 2.5 % (0.0-4.0); LYMPH # 1.4 K/uL (1.0-4.3); LYMPH % 32.1 % (20.0-40.0); MEAN CELL VOLUME 84.5 fL (80.0-94.0); MEAN CORPUSCULAR HEMOGLOBIN 27.7 pg (27.0-31.0); MEAN CORPUSCULAR HGB CONC 32.8 g/dL (33.0-37.0); MEAN PLATELET VOLUME 8.7 fL (7.2-11.7); MONO # 0.3 K/uL (0.0-0.8); MONO % 7.3 % (0.0-10.0); NRBC % 0.1 % (0.0-2.0); RED CELL DISTRIBUTION WIDTH 15.6 % (11.5-14.5); WHITE BLOOD COUNT 4.3 K/uL (4.8-10.8)
[2017-09-22] MEDS ORDERED: Lidocaine 2% Inj (20ml) ONE (12:29)
--- NOTE | 2017-09-22 12:42 | PCM.SURG1 ---
Surgeon's Initial Post Op Note - Surgeon's Notes Surgeon: Maximo Linares MD Tool And Machine Maintainer: NONE Type of Anesthesia: Local Pre-Operative Diagnosis: Foot infection Operative Findings: US showed a patent right basilic vein Post-Operative Diagnosis: Foot infection Operation Performed: Single lumen picc placement right basilic vein, 33 cm. Tip is in the SVC. Specimen/Specimens Removed: NONE Estimated Blood Loss: EBL {In ML}: 2 Blood Products Given: N/A Drains Used: No Drains Post-Op Condition: Fair Date of Surgery/Procedure: 09/22/17 Time of Surgery/Procedure: 12:35
[2017-09-22 12:43] LABS: CHLORIDE 98 mmol/L (98-107); POTASSIUM 4.5 mmol/L (3.6-5.2); SODIUM 133 mmol/L (132-148)
[2017-09-22 12:45] LABS: ALB/GLOB RATIO 0.8 (1.0-2.1); ALKALINE PHOSPHATASE 99 U/L (38-126); ALT/SGPT 39 U/L (21-72); AST/SGOT 29 U/L (17-59); BILIRUBIN,TOTAL 0.5 mg/dL (0.2-1.3); BLOOD UREA NITROGEN 30 mg/dL (9-20); CARBON DIOXIDE 26 mmol/L (22-30); GFR AFRICAN-AMERICAN > 60
[2017-09-22 12:46] LABS: CALCIUM 9.4 mg/dl (8.6-10.4); GLUCOSE,RANDOM 173 mg/dL (75-110)
--- NOTE | 2017-09-22 15:07 | CP.PCM.PN ---
<Joe Emerson - Last Filed: 09/22/17 15:04> Subjective - Date & Time of Evaluation Date of Evaluation: 09/22/17 Time of Evaluation: 15:00 - Subjective Subjective: Progress note. Attending: Dr. Ruiz Pt seen and examined at bedside. No acute distress. No events overnight. S/P PICC line. No fevers, chills, vomiting, diarrhea. Objective - Vital Signs/Intake and Output Vital Signs (last 24 hours): Temp Pulse Resp BP Pulse Ox 97.5 F L 97 H 20 128/84 98 09/22/17 08:54 09/22/17 08:54 09/22/17 08:54 09/22/17 09:29 09/22/17 08:54 - Medications Medications: Current Medications Amlodipine Besylate (Norvasc) 10 mg PO DAILY [facility] Last Admin: 09/22/17 09:29 Dose: 10 mg Enalapril Maleate (Vasotec) 10 mg PO DAILY [facility] Last Admin: 09/22/17 09:29 Dose: 10 mg Enoxaparin Sodium (Lovenox) 30 mg SC DAILY [facility] Last Admin: 09/21/17 10:58 Dose: Not Given Piperacillin Sod/Tazobactam Sod (Zosyn 3.375 Gm Iv Premix) 3.375 gm in 50 mls @ 100 mls/hr IVPB Q6H [facility] Last Admin: 09/22/17 13:55 Dose: 100 mls/hr Insulin Aspart (Novolog) 0 unit SC ACHS [facility] PRN Reason: Protocol Last Admin: 09/22/17 11:30 Dose: Not Given Insulin Glargine (Lantus) 10 unit SC HS [facility] Last Admin: 09/21/17 21:54 Dose: Not Given Ondansetron HCl (Zofran Inj) 4 mg IVP Q6H PRN PRN Reason: Nausea/Vomiting Last Admin: 09/18/17 19:13 Dose: 4 mg Sodium Hypochlorite (Dakins Solution 0.125%) 1 appl TOP QSHIFT [facility] Last Admin: 09/22/17 14:07 Dose: 1 appl Tramadol HCl (Ultram) 50 mg PO Q6H PRN PRN Reason: Pain, moderate (4-7) Last Admin: 09/20/17 18:48 Dose: 50 mg - Labs Labs: 09/22/17 12:15 09/22/17 12:15 PT 10.7 SECONDS (9.7-12.2) 09/21/17 08:35 INR 0.9 09/21/17 08:35 - Constitutional Appears: Non-toxic, No Acute Distress - Head Exam Head Exam: ATRAUMATIC, NORMAL INSPECTION, NORMOCEPHALIC - Eye Exam Eye Exam: EOMI - ENT Exam ENT Exam: Mucous Membranes Moist - Respiratory Exam Respiratory Exam: NORMAL BREATHING PATTERN. absent: Respiratory Distress - Cardiovascular Exam Cardiovascular Exam: +S1, +S2 - GI/Abdominal Exam GI & Abdominal Exam: Soft, Normal Bowel Sounds. absent: Tenderness - Extremities Exam Extremities Exam: Full ROM, Normal Inspection - Neurological Exam Neurological Exam: Alert, Awake, Oriented x3 - Psychiatric Exam Psychiatric exam: Normal Affect, Normal Mood - Skin Skin Exam: Dry, Intact, Normal Color, Warm Assessment and Plan - Assessment and Plan (Free Text) Assessment: 1. non healing wound right foot -wound debridement today -IV zosyn -tramadol for pain -podiatry consult. recs appreciated -ID consult. recs appreciated. 2. HTN -norvasc 10 -enalapril 10 3. Hx of DM -ISS -lantus 10 HS 4. GI/DVT ppx -lovenox -zofran <Jolanta Ruiz S - Last Filed: 09/30/17 12:43> Objective - Vital Signs/Intake and Output Vital Signs (last 24 hours): Temp Pulse Resp BP Pulse Ox 97.5 F L 86 20 108/71 98 09/30/17 08:04 09/30/17 08:04 09/30/17 08:04 09/30/17 09:57 09/30/17 08:04 Intake and Output: 09/30/17 09/30/17 06:59 18:59 Intake Total 600 Output Total 400 Balance 200 - Medications Medications: Current Medications Acetaminophen (Tylenol 325mg Tab) 650 mg PO Q6 PRN PRN Reason: Pain, Mild (1-3) Last Admin: 09/30/17 00:48 Dose: 650 mg Amlodipine Besylate (Norvasc) 10 mg PO DAILY [facility] Last Admin: 09/30/17 09:54 Dose: 10 mg Enalapril Maleate (Vasotec) 10 mg PO DAILY [facility] Last Admin: 09/30/17 09:57 Dose: 10 mg Enoxaparin Sodium (Lovenox) 30 mg SC DAILY [facility] Last Admin: 09/30/17 09:55 Dose: 30 mg Piperacillin Sod/Tazobactam Sod (Zosyn 3.375 Gm Iv Premix) 3.375 gm in 50 mls @ 100 mls/hr IVPB Q6H [facility] Last Admin: 09/30/17 12:31 Dose: 100 mls/hr Insulin Aspart (Novolog) 0 unit SC ACHS [facility] PRN Reason: Protocol Last Admin: 09/30/17 12:30 Dose: 4 unit Insulin Glargine (Lantus) 14 unit SC HS [facility] Last Admin: 09/29/17 21:27 Dose: 14 units Ondansetron HCl (Zofran Inj) 4 mg IVP Q6H PRN PRN Reason: Nausea/Vomiting Last Admin: 09/29/17 17:10 Dose: 4 mg Saccharomyces Boulardii (Florastor) 250 mg PO BID [facility] Last Admin: 09/30/17 09:54 Dose: 250 mg Tramadol HCl (Ultram) 50 mg PO Q6H PRN PRN Reason: Pain, moderate (4-7) Last Admin: 09/29/17 14:37 Dose: 50 mg - Labs Labs: 09/26/17 07:29 09/26/17 07:29 PT 10.7 SECONDS (9.7-12.2) 09/24/17 05:17 INR 1.0 09/24/17 05:17 APTT 28 SECONDS (21-34) 09/24/17 05:17 Attending/Attestation - Attestation I have personally seen and examined this patient.: Yes I have fully participated in the care of the patient.: Yes I have reviewed all pertinent clinical information, including history, physical exam and plan: Yes Notes (Text): Continue treatment for hypoglycemia, diabetic foot ulcer, DM, HTN. Patient examined. No acute events. Patient comfortable. Continue treatment for diabetic foot ulcer, HTN, DM.
--- NOTE | 2017-09-22 19:15 | CARD ---
APPROVED REPORT EXAM: Two-dimensional and M-mode echocardiogram with Doppler and color Doppler. Other Information Quality : GoodRhythm : NSR INDICATION Dizziness and Vertigo Pre-Op Syncope RISK FACTORS Diabetes M-Mode DIMENSIONS RVDd2.77 (2.1-3.2cm)Left Atrium (MM)3.29 (2.5-4.0cm) IVSd0.95 (0.7-1.1cm)Aortic Root2.69 (2.2-3.7cm) LVDd3.99 (4.0-5.6cm)Aortic Cusp Exc.1.89 (1.5-2.0cm) PWd0.98 (0.7-1.1cm)FS (%) 24 % LVDs3.04 (2.0-3.8cm)LVEF (%)48 (>50%) Mitral Valve MV E Vcnrinnp43.5cm/sMV A Gkfifblj38.3cm/sE/A ratio1.2 TDI E/Lateral E'0.0E/Medial E'0.0 LEFT VENTRICLE The left ventricle is normal size. There is borderline concentric left ventricular hypertrophy. Left ventricle ejection fraction is borderline. There is normal LV segmental wall motion. The left ventricular diastolic function is normal. RIGHT VENTRICLE The right ventricle is normal size. There is normal right ventricular wall thickness. The right ventricular systolic function is normal. ATRIA The left atrium size is normal. The right atrium size is normal. AORTIC VALVE The aortic valve is normal in structure. No aortic regurgitation is present. MITRAL VALVE The mitral valve is normal in structure. There is no evidence of mitral valve prolapse. TRICUSPID VALVE The tricuspid valve is normal in structure. There is no tricuspid valve regurgitation noted. GREAT VESSELS The aortic root is normal in size. The IVC is normal in size and collapses >50% with inspiration. PERICARDIAL EFFUSION There is a trace loculated posterior pericardial effusion. <Conclusion> The left ventricle is normal size. There is borderline concentric left ventricular hypertrophy. Left ventricle ejection fraction is borderline. There is normal LV segmental wall motion. The left ventricular diastolic function is normal.
--- NOTE | 2017-09-22 20:03 | CP.PCM.PN ---
Subjective - Date & Time of Evaluation Date of Evaluation: 09/22/17 Time of Evaluation: 09:40 - Subjective Subjective: Clinical exam Objective - Vital Signs/Intake and Output Vital Signs (last 24 hours): Temp Pulse Resp BP Pulse Ox 97.3 F L 101 H 20 104/65 96 09/22/17 15:00 09/22/17 15:00 09/22/17 15:00 09/22/17 15:00 09/22/17 15:00 - Medications Medications: Current Medications Amlodipine Besylate (Norvasc) 10 mg PO DAILY [facility] Last Admin: 09/22/17 09:29 Dose: 10 mg Enalapril Maleate (Vasotec) 10 mg PO DAILY [facility] Last Admin: 09/22/17 09:29 Dose: 10 mg Enoxaparin Sodium (Lovenox) 30 mg SC DAILY [facility] Last Admin: 09/21/17 10:58 Dose: Not Given Piperacillin Sod/Tazobactam Sod (Zosyn 3.375 Gm Iv Premix) 3.375 gm in 50 mls @ 100 mls/hr IVPB Q6H [facility] Last Admin: 09/22/17 18:15 Dose: 100 mls/hr Insulin Aspart (Novolog) 0 unit SC ACHS [facility] PRN Reason: Protocol Last Admin: 09/22/17 17:42 Dose: 4 unit Insulin Glargine (Lantus) 10 unit SC HS [facility] Last Admin: 09/21/17 21:54 Dose: Not Given Ondansetron HCl (Zofran Inj) 4 mg IVP Q6H PRN PRN Reason: Nausea/Vomiting Last Admin: 09/18/17 19:13 Dose: 4 mg Sodium Hypochlorite (Dakins Solution 0.125%) 1 appl TOP QSHIFT [facility] Last Admin: 09/22/17 14:07 Dose: 1 appl Tramadol HCl (Ultram) 50 mg PO Q6H PRN PRN Reason: Pain, moderate (4-7) Last Admin: 09/20/17 18:48 Dose: 50 mg - Labs Labs: 09/22/17 12:15 09/22/17 12:15 PT 10.7 SECONDS (9.7-12.2) 09/21/17 08:35 INR 0.9 09/21/17 08:35 - Constitutional Appears: Well - Head Exam Head Exam: ATRAUMATIC, NORMAL INSPECTION, NORMOCEPHALIC - Eye Exam Eye Exam: EOMI, Normal appearance, PERRL - ENT Exam ENT Exam: Mucous Membranes Moist, Normal Exam - Neck Exam Neck Exam: Full ROM, Normal Inspection. absent: Lymphadenopathy - Respiratory Exam Respiratory Exam: Decreased Breath Sounds - Cardiovascular Exam Cardiovascular Exam: REGULAR RHYTHM, +S1, +S2. absent: Murmur - GI/Abdominal Exam GI & Abdominal Exam: Diminished Bowel Sounds - Rectal Exam Rectal Exam: Deferred Assessment and Plan (1) Abdominal pain Status: Acute (2) Back pain Status: Acute (3) Diarrhea Status: Acute (4) Dizziness Status: Acute (5) Headache Status: Acute (6) Homeless single person Status: Acute (7) Hypoglycemia Status: Acute (8) Hypoglycemia Status: Acute (9) Hypoglycemia due to type 1 diabetes mellitus Status: Acute (10) Hypothermia Status: Acute (11) Nausea Status: Acute (12) Near syncope Status: Acute (13) Orthostatic hypotension Status: Acute (14) Prophylactic measure Status: Acute (15) Tachycardia Status: Acute (16) Uncontrolled diabetes mellitus Status: Acute (17) Uncontrolled type 1 diabetes mellitus Status: Acute (18) Diabetes Status: Chronic (19) Diabetic foot ulcer Status: Chronic (20) History of hypertension Status: Chronic (21) Hypertension Status: Chronic (22) Seizure Status: Suspected - Assessment and Plan (Free Text) Plan: Patient examined. Single-lumen PICC placement in the right basilic vein. With tip in the SVC done under local anesthesia. Patient better. Continue piperacillin and tazobactam. Continue long-acting insulin glargine. Continue sliding-scale insulin. Continue supportive care.
--- NOTE | 2017-09-22 21:30 | CP.PCM.PN ---
Subjective - Date & Time of Evaluation Date of Evaluation: 09/22/17 Time of Evaluation: 21:29 - Subjective Subjective: Surgery was postponed today and will be rescheduled to Fri09/24/2017 at 12:30. Will write pre op orders tomorrow. Objective - Vital Signs/Intake and Output Vital Signs (last 24 hours): Temp Pulse Resp BP Pulse Ox 97.3 F L 101 H 20 104/65 96 09/22/17 15:00 09/22/17 15:00 09/22/17 15:00 09/22/17 15:00 09/22/17 15:00 - Medications Medications: Current Medications Amlodipine Besylate (Norvasc) 10 mg PO DAILY [facility] Last Admin: 09/22/17 09:29 Dose: 10 mg Enalapril Maleate (Vasotec) 10 mg PO DAILY [facility] Last Admin: 09/22/17 09:29 Dose: 10 mg Enoxaparin Sodium (Lovenox) 30 mg SC DAILY [facility] Last Admin: 09/21/17 10:58 Dose: Not Given Piperacillin Sod/Tazobactam Sod (Zosyn 3.375 Gm Iv Premix) 3.375 gm in 50 mls @ 100 mls/hr IVPB Q6H [facility] Last Admin: 09/22/17 18:15 Dose: 100 mls/hr Insulin Aspart (Novolog) 0 unit SC ACHS [facility] PRN Reason: Protocol Last Admin: 09/22/17 17:42 Dose: 4 unit Insulin Glargine (Lantus) 10 unit SC HS [facility] Last Admin: 09/21/17 21:54 Dose: Not Given Ondansetron HCl (Zofran Inj) 4 mg IVP Q6H PRN PRN Reason: Nausea/Vomiting Last Admin: 09/18/17 19:13 Dose: 4 mg Sodium Hypochlorite (Dakins Solution 0.125%) 1 appl TOP QSHIFT [facility] Last Admin: 09/22/17 14:07 Dose: 1 appl Tramadol HCl (Ultram) 50 mg PO Q6H PRN PRN Reason: Pain, moderate (4-7) Last Admin: 09/20/17 18:48 Dose: 50 mg - Labs Labs: 09/22/17 12:15 09/22/17 12:15 PT 10.7 SECONDS (9.7-12.2) 09/21/17 08:35 INR 0.9 09/21/17 08:35
[2017-09-22] MEDS: (Lantus) Insulin Glargine, Recombinant SC SCH (22:08)
[2017-09-23] MEDS: Piperacill/Tazo 3.375gm in Dex 3.375 GM/50 ML BAG IVPB SCH ×4 (00:14→18:22)
[2017-09-23] MEDS: (Novolog) Insulin Aspart, Recombinant 100 u/ml 10 ml vial SC SCH ×5 (10:20→22:04)
[2017-09-23] MEDS: Enoxaparin 30 mg Syringe SC SCH (10:21)
--- NOTE | 2017-09-23 11:30 | CP.PCM.PN ---
<Penny Ponce - Last Filed: 09/23/17 11:27> Subjective - Date & Time of Evaluation Date of Evaluation: 09/23/17 Time of Evaluation: 11:27 - Subjective Subjective: Podiatry note for Dr. Myles 27 yo male patient with PMHx of DM type I was seen at bedside this morning with attending Dr. Myles, concerning non-healing wounds to Left foot. Patient is resting comfortably in bed this morning. AAO x3, dressings to Left foot remains clean, dry and intact. Patient denies of any pain to the wounds. Patient denies of any N/V/F/C or SOB today. Patient scheduled to go to OR tomorrow morning with Dr. Myles for wound debridement with graft application. Objective - Vital Signs/Intake and Output Vital Signs (last 24 hours): Temp Pulse Resp BP Pulse Ox 98.1 F 93 H 18 122/82 97 09/23/17 01:00 09/23/17 01:00 09/23/17 01:00 09/23/17 10:20 09/23/17 01:00 Intake and Output: 09/23/17 09/23/17 06:59 18:59 Intake Total 550 Balance 550 - Medications Medications: Current Medications Amlodipine Besylate (Norvasc) 10 mg PO DAILY [facility] Last Admin: 09/23/17 10:20 Dose: 10 mg Enalapril Maleate (Vasotec) 10 mg PO DAILY [facility] Last Admin: 09/23/17 10:20 Dose: 10 mg Enoxaparin Sodium (Lovenox) 30 mg SC DAILY [facility] Last Admin: 09/23/17 10:21 Dose: 30 mg Piperacillin Sod/Tazobactam Sod (Zosyn 3.375 Gm Iv Premix) 3.375 gm in 50 mls @ 100 mls/hr IVPB Q6H [facility] Last Admin: 09/23/17 06:35 Dose: 100 mls/hr Insulin Aspart (Novolog) 0 unit SC ACHS [facility] PRN Reason: Protocol Last Admin: 09/23/17 10:22 Dose: 3 unit Insulin Glargine (Lantus) 10 unit SC HS [facility] Last Admin: 09/22/17 22:08 Dose: 10 units Ondansetron HCl (Zofran Inj) 4 mg IVP Q6H PRN PRN Reason: Nausea/Vomiting Last Admin: 10/26/17 19:13 Dose: 4 mg Sodium Hypochlorite (Dakins Solution 0.125%) 1 appl TOP QSHIFT [facility] Last Admin: 09/22/17 22:04 Dose: Not Given Tramadol HCl (Ultram) 50 mg PO Q6H PRN PRN Reason: Pain, moderate (4-7) Last Admin: 09/20/17 18:48 Dose: 50 mg - Labs Labs: 09/22/17 12:15 09/22/17 12:15 PT 10.7 SECONDS (9.7-12.2) 09/21/17 08:35 INR 0.9 09/21/17 08:35 - Constitutional Appears: Well, Non-toxic, No Acute Distress - Extremities Exam Additional comments: dressing to left lower extremity clean,dry,intact cft < 3 sec to all digits no tenderness to palpation or calf pain - Neurological Exam Neurological Exam: Alert, Awake, Oriented x3 - Psychiatric Exam Psychiatric exam: Normal Affect, Normal Mood Assessment and Plan - Assessment and Plan (Free Text) Assessment: 27 yo male patient with type I DM presenting with diabetic ulcerations to Left foot Plan: Patient was seen, evaluated at bedside seen at bedside with attending Dr. Myles labs and vitals reviewed; afebrile\ Xray reveals no sign of OM Left foot dressing remains c/d/i Left foot WCX; Proteus Mirabilis, Beta Hymolytic Strep Group B CT angio shows 3 vessel runoff to lower extremities, no evidence of peripheral arterial disease Patient scheduled for Right foot wound debridement with graft application tomorrow with Dr. Myles cardiac and medical optimization obtained patient to be NPO after midnight tonight Lovenox held Podiatry will continue to follow inhouse <Manny Myles - Last Filed: 09/23/17 12:37> Objective - Vital Signs/Intake and Output Vital Signs (last 24 hours): Temp Pulse Resp BP Pulse Ox 97.5 F L 98 H 20 122/82 99 09/23/17 08:00 09/23/17 08:00 09/23/17 08:00 09/23/17 10:20 09/23/17 08:00 Intake and Output: 09/23/17 09/23/17 06:59 18:59 Intake Total 550 Balance 550 - Medications Medications: Current Medications Amlodipine Besylate (Norvasc) 10 mg PO DAILY [facility] Last Admin: 09/23/17 10:20 Dose: 10 mg Enalapril Maleate (Vasotec) 10 mg PO DAILY [facility] Last Admin: 09/23/17 10:20 Dose: 10 mg Enoxaparin Sodium (Lovenox) 30 mg SC DAILY [facility] Last Admin: 09/23/17 10:21 Dose: 30 mg Piperacillin Sod/Tazobactam Sod (Zosyn 3.375 Gm Iv Premix) 3.375 gm in 50 mls @ 100 mls/hr IVPB Q6H [facility] Last Admin: 09/23/17 06:35 Dose: 100 mls/hr Insulin Aspart (Novolog) 0 unit SC ACHS [facility] PRN Reason: Protocol Last Admin: 09/23/17 10:22 Dose: 3 unit Insulin Glargine (Lantus) 10 unit SC HS [facility] Last Admin: 09/22/17 22:08 Dose: 10 units Ondansetron HCl (Zofran Inj) 4 mg IVP Q6H PRN PRN Reason: Nausea/Vomiting Last Admin: 09/18/17 19:13 Dose: 4 mg Sodium Hypochlorite (Dakins Solution 0.125%) 1 appl TOP QSHIFT [facility] Last Admin: 09/22/17 22:04 Dose: Not Given Tramadol HCl (Ultram) 50 mg PO Q6H PRN PRN Reason: Pain, moderate (4-7) Last Admin: 09/20/17 18:48 Dose: 50 mg - Labs Labs: 09/22/17 12:15 09/22/17 12:15 PT 10.7 SECONDS (9.7-12.2) 09/21/17 08:35 INR 0.9 09/21/17 08:35 Attending/Attestation - Attestation I have personally seen and examined this patient.: Yes I have fully participated in the care of the patient.: Yes I have reviewed all pertinent clinical information, including history, physical exam and plan: Yes Notes (Text): 09/23/17 12:37 Pt for OR tomorrow at 12:30
--- NOTE | 2017-09-23 13:57 | CP.PCM.PN ---
<Hilary Frausto - Last Filed: 09/23/17 15:34> Subjective - Date & Time of Evaluation Date of Evaluation: 09/23/17 Time of Evaluation: 11:44 - Subjective Subjective: PGY 2 Med Note- Dr. Willow Ruiz's service Pt seen and examined in no acute distress. Patient states that he was due to have had surgery however there was no available slot in the OR schedule . Consequently, procedure will be tomorrow. Patient states that his blood sugars appear better controlled. At the moment, he denies chest pain, palpitations, headaches, nausea, vomiting or diarrhea. Objective - Vital Signs/Intake and Output Vital Signs (last 24 hours): Temp Pulse Resp BP Pulse Ox 97.5 F L 98 H 20 122/82 99 09/23/17 08:00 09/23/17 08:00 09/23/17 08:00 09/23/17 10:20 09/23/17 08:00 Intake and Output: 09/23/17 09/23/17 06:59 18:59 Intake Total 550 Balance 550 - Medications Medications: Current Medications Amlodipine Besylate (Norvasc) 10 mg PO DAILY [facility] Last Admin: 09/23/17 10:20 Dose: 10 mg Enalapril Maleate (Vasotec) 10 mg PO DAILY [facility] Last Admin: 09/23/17 10:20 Dose: 10 mg Enoxaparin Sodium (Lovenox) 30 mg SC DAILY [facility] Last Admin: 09/23/17 10:21 Dose: 30 mg Piperacillin Sod/Tazobactam Sod (Zosyn 3.375 Gm Iv Premix) 3.375 gm in 50 mls @ 100 mls/hr IVPB Q6H [facility] Last Admin: 09/23/17 13:05 Dose: 100 mls/hr Insulin Aspart (Novolog) 0 unit SC ACHS [facility] PRN Reason: Protocol Last Admin: 09/23/17 13:04 Dose: 5 unit Insulin Glargine (Lantus) 10 unit SC HS [facility] Last Admin: 09/22/17 22:08 Dose: 10 units Ondansetron HCl (Zofran Inj) 4 mg IVP Q6H PRN PRN Reason: Nausea/Vomiting Last Admin: 09/18/17 19:13 Dose: 4 mg Sodium Hypochlorite (Dakins Solution 0.125%) 1 appl TOP QSHIFT [facility] Last Admin: 09/22/17 22:04 Dose: Not Given Tramadol HCl (Ultram) 50 mg PO Q6H PRN PRN Reason: Pain, moderate (4-7) Last Admin: 09/20/17 18:48 Dose: 50 mg - Labs Labs: 09/22/17 12:15 09/22/17 12:15 PT 10.7 SECONDS (9.7-12.2) 09/21/17 08:35 INR 0.9 09/21/17 08:35 - Constitutional Appears: Non-toxic, No Acute Distress - Head Exam Head Exam: ATRAUMATIC, NORMAL INSPECTION - Eye Exam Eye Exam: EOMI, Normal appearance - ENT Exam ENT Exam: Mucous Membranes Moist - Neck Exam Neck Exam: Full ROM - Respiratory Exam Respiratory Exam: NORMAL BREATHING PATTERN. absent: Wheezes - Cardiovascular Exam Cardiovascular Exam: +S1, +S2 - GI/Abdominal Exam GI & Abdominal Exam: Soft, Normal Bowel Sounds - Extremities Exam Extremities Exam: Full ROM, Normal Inspection Additional comments: dressing, c/d/i, wrapped neatly. sensation intact - Back Exam Back Exam: Full ROM, NORMAL INSPECTION - Neurological Exam Neurological Exam: Alert, Awake, Oriented x3 - Psychiatric Exam Psychiatric exam: Normal Affect, Normal Mood - Skin Skin Exam: Dry, Normal Color, Warm Assessment and Plan (1) Hypoglycemia Status: Acute (2) Diabetic foot ulcer Status: Chronic (3) Diabetes Status: Chronic (4) History of hypertension Status: Chronic (5) Prophylactic measure Status: Acute - Assessment and Plan (Free Text) Assessment: Diabetic foot ulcer Assessment & Plan: Podiatry, ID and surgery on the case PICC line placed. On Zosyn. Added on Florastor. Cont to monitor Cultures grew out proteus XRAY imaging- no apparent signs of osteomyelitis. Much less conspicuous gas in the anterior soft tissues- Tibiotalar region Wound care dressings, Tramadol for pain, Zofran for nausea Angiography ruled out PAD To the OR- in the AM for right foot wound debridement with graft application F/U recommendations Status: Chronic Hx of Hypoglycemia Assessment & Plan: Be mindful of anti-hyperglycemic med administration in light of hypoglycemic history Head CT ordered- no acute intracranial abnormality Status: Acute Diabetes Assessment & Plan: F/U A1c and accuchecks ISS Status: Chronic History of hypertension Assessment & Plan: On Norvasc and Enalapril Heart healthy diet Status: Chronic Prophylactic measure Assessment & Plan: Lovenox hold past midnight SCDs contraindicated Status: Acute Per Case management- Patient is a candidate for AYANNA once surgery is performed and patient deemed stable from Podiatry and ID standpoint. Discussed with attending. All management and planning per Dr. Willow Ruiz <Jolanta Ruiz - Last Filed: 09/30/17 12:44> Objective - Vital Signs/Intake and Output Vital Signs (last 24 hours): Temp Pulse Resp BP Pulse Ox 97.5 F L 86 20 108/71 98 09/30/17 08:04 09/30/17 08:04 09/30/17 08:04 09/30/17 09:57 09/30/17 08:04 Intake and Output: 09/30/17 09/30/17 06:59 18:59 Intake Total 600 Output Total 400 Balance 200 - Medications Medications: Current Medications Acetaminophen (Tylenol 325mg Tab) 650 mg PO Q6 PRN PRN Reason: Pain, Mild (1-3) Last Admin: 09/30/17 00:48 Dose: 650 mg Amlodipine Besylate (Norvasc) 10 mg PO DAILY [facility] Last Admin: 09/30/17 09:54 Dose: 10 mg Enalapril Maleate (Vasotec) 10 mg PO DAILY [facility] Last Admin: 09/30/17 09:57 Dose: 10 mg Enoxaparin Sodium (Lovenox) 30 mg SC DAILY [facility] Last Admin: 09/30/17 09:55 Dose: 30 mg Piperacillin Sod/Tazobactam Sod (Zosyn 3.375 Gm Iv Premix) 3.375 gm in 50 mls @ 100 mls/hr IVPB Q6H [facility] Last Admin: 09/30/17 12:31 Dose: 100 mls/hr Insulin Aspart (Novolog) 0 unit SC ACHS [facility] PRN Reason: Protocol Last Admin: 09/30/17 12:30 Dose: 4 unit Insulin Glargine (Lantus) 14 unit SC HS [facility] Last Admin: 09/29/17 21:27 Dose: 14 units Ondansetron HCl (Zofran Inj) 4 mg IVP Q6H PRN PRN Reason: Nausea/Vomiting Last Admin: 09/29/17 17:10 Dose: 4 mg Saccharomyces Boulardii (Florastor) 250 mg PO BID [facility] Last Admin: 09/30/17 09:54 Dose: 250 mg Tramadol HCl (Ultram) 50 mg PO Q6H PRN PRN Reason: Pain, moderate (4-7) Last Admin: 09/29/17 14:37 Dose: 50 mg - Labs Labs: 09/26/17 07:29 09/26/17 07:29 PT 10.7 SECONDS (9.7-12.2) 09/24/17 05:17 INR 1.0 09/24/17 05:17 APTT 28 SECONDS (21-34) 09/24/17 05:17 Attending/Attestation - Attestation I have personally seen and examined this patient.: Yes I have fully participated in the care of the patient.: Yes I have reviewed all pertinent clinical information, including history, physical exam and plan: Yes Notes (Text): Patient examined. No acute distress. Blood sugar under control. Continue treatment for hypoglycemia, diabetic foot ulcer, DM and HTN.
--- NOTE | 2017-09-23 15:08 | CP.PCM.PN ---
Subjective - Date & Time of Evaluation Date of Evaluation: 09/23/17 Time of Evaluation: 08:40 - Subjective Subjective: clinically same Objective - Vital Signs/Intake and Output Vital Signs (last 24 hours): Temp Pulse Resp BP Pulse Ox 97.5 F L 98 H 20 122/82 99 09/23/17 08:00 09/23/17 08:00 09/23/17 08:00 09/23/17 10:20 09/23/17 08:00 Intake and Output: 09/23/17 09/23/17 06:59 18:59 Intake Total 550 550 Balance 550 550 - Medications Medications: Current Medications Amlodipine Besylate (Norvasc) 10 mg PO DAILY [facility] Last Admin: 09/23/17 10:20 Dose: 10 mg Enalapril Maleate (Vasotec) 10 mg PO DAILY [facility] Last Admin: 09/23/17 10:20 Dose: 10 mg Enoxaparin Sodium (Lovenox) 30 mg SC DAILY [facility] Last Admin: 09/23/17 10:21 Dose: 30 mg Piperacillin Sod/Tazobactam Sod (Zosyn 3.375 Gm Iv Premix) 3.375 gm in 50 mls @ 100 mls/hr IVPB Q6H [facility] Last Admin: 09/23/17 13:05 Dose: 100 mls/hr Insulin Aspart (Novolog) 0 unit SC ACHS [facility] PRN Reason: Protocol Last Admin: 09/23/17 13:04 Dose: 5 unit Insulin Glargine (Lantus) 10 unit SC HS [facility] Last Admin: 09/22/17 22:08 Dose: 10 units Ondansetron HCl (Zofran Inj) 4 mg IVP Q6H PRN PRN Reason: Nausea/Vomiting Last Admin: 09/18/17 19:13 Dose: 4 mg Saccharomyces Boulardii (Florastor) 250 mg PO BID [facility] Sodium Hypochlorite (Dakins Solution 0.125%) 1 appl TOP QSHIFT [facility] Last Admin: 09/22/17 22:04 Dose: Not Given Tramadol HCl (Ultram) 50 mg PO Q6H PRN PRN Reason: Pain, moderate (4-7) Last Admin: 09/20/17 18:48 Dose: 50 mg - Labs Labs: 09/22/17 12:15 09/22/17 12:15 PT 10.7 SECONDS (9.7-12.2) 09/21/17 08:35 INR 0.9 09/21/17 08:35 - Constitutional Appears: Well - Head Exam Head Exam: ATRAUMATIC, NORMAL INSPECTION, NORMOCEPHALIC - Eye Exam Eye Exam: EOMI, Normal appearance, PERRL Pupil Exam: NORMAL ACCOMODATION, PERRL - ENT Exam ENT Exam: Mucous Membranes Moist, Normal Exam - Neck Exam Neck Exam: Full ROM, Normal Inspection. absent: Lymphadenopathy - Respiratory Exam Respiratory Exam: Decreased Breath Sounds - Cardiovascular Exam Cardiovascular Exam: REGULAR RHYTHM, +S1, +S2 - GI/Abdominal Exam GI & Abdominal Exam: Soft, Diminished Bowel Sounds - Rectal Exam Rectal Exam: Deferred Assessment and Plan (1) Abdominal pain Status: Acute (2) Back pain Status: Acute (3) Diarrhea Status: Acute (4) Dizziness Status: Acute (5) Headache Status: Acute (6) Homeless single person Status: Acute (7) Hypoglycemia Status: Acute (8) Hypoglycemia Status: Acute (9) Hypoglycemia due to type 1 diabetes mellitus Status: Acute (10) Hypothermia Status: Acute (11) Nausea Status: Acute (12) Near syncope Status: Acute (13) Orthostatic hypotension Status: Acute (14) Prophylactic measure Status: Acute (15) Tachycardia Status: Acute (16) Uncontrolled diabetes mellitus Status: Acute (17) Uncontrolled type 1 diabetes mellitus Status: Acute (18) Diabetes Status: Chronic (19) Diabetic foot ulcer Status: Chronic (20) History of hypertension Status: Chronic (21) Hypertension Status: Chronic (22) Seizure Status: Suspected - Assessment and Plan (Free Text) Plan: Patient examined. Patient better. Continue long-acting insulin glargine. Continue sliding-scale insulin. Continue piperacillin tazobactam. Continue supportive care.
[2017-09-23] MEDS: Saccharomyces Boulardi 250 mg Cap PO SCH (17:47)
[2017-09-23] MEDS ORDERED: (Lantus) Insulin Glargine, Recombinant SC ONE (22:00)
[2017-09-24] MEDS: Piperacill/Tazo 3.375gm in Dex 3.375 GM/50 ML BAG IVPB SCH ×4 (00:19→18:17)
[2017-09-24 05:20] LABS: BASO # 0.1 K/uL (0.0-0.2); BASO % 1.1 % (0.0-2.0); EOS # 0.1 K/uL (0.0-0.7); EOS % 1.5 % (0.0-4.0); HEMATOCRIT 30.5 % (35.0-51.0); LYMPH # 1.9 K/uL (1.0-4.3); LYMPH % 28.7 % (20.0-40.0); MEAN CELL VOLUME 85.3 fL (80.0-94.0); MEAN CORPUSCULAR HEMOGLOBIN 27.4 pg (27.0-31.0); MEAN CORPUSCULAR HGB CONC 32.1 g/dL (33.0-37.0); MEAN PLATELET VOLUME 8.5 fL (7.2-11.7); MONO # 0.5 K/uL (0.0-0.8); MONO % 7.2 % (0.0-10.0); RED CELL DISTRIBUTION WIDTH 15.9 % (11.5-14.5); WHITE BLOOD COUNT 6.7 K/uL (4.8-10.8)
[2017-09-24 05:31] LABS: POTASSIUM 5.1 mmol/L (3.6-5.2)
[2017-09-24 05:33] LABS: BILIRUBIN,TOTAL 0.3 mg/dL (0.2-1.3)
[2017-09-24 05:34] LABS: ALB/GLOB RATIO 0.7 (1.0-2.1); CALCIUM 9.9 mg/dl (8.6-10.4); PHOSPHOROUS 4.2 mg/dL (2.5-4.5); TOTAL PROTEIN 9.4 g/dL (6.3-8.3)
[2017-09-24] MEDS: (Novolog) Insulin Aspart, Recombinant 100 u/ml 10 ml vial SC SCH ×4 (07:30→21:48)
[2017-09-24] MEDS: Saccharomyces Boulardi 250 mg Cap PO SCH ×2 (10:00→17:07)
--- NOTE | 2017-09-24 10:08 | CP.PCM.PN ---
<JettGrzegorzshiva - Last Filed: 09/24/17 16:07> Subjective - Date & Time of Evaluation Date of Evaluation: 09/24/17 Time of Evaluation: 07:33 - Subjective Subjective: PGY 2 Medicine Note- Dr. Willow Ruiz's service Pt seen and examined in no apparent acute distress. Patient said that he had a headache early this morning. He was concerned that he was having a hypoglycemic spell after being NPO overnight. He requested that his blood sugar be checked. It was reported to be approx 290. Patient otherwise denied fevers, chills, nausea, vomiting, diarrhea , chest pain or palpitations at this time. Objective - Vital Signs/Intake and Output Vital Signs (last 24 hours): Temp Pulse Resp BP Pulse Ox 97.6 F 89 20 110/72 99 09/24/17 08:09 09/24/17 08:09 09/24/17 08:09 09/24/17 08:09 09/24/17 08:09 Intake and Output: 09/24/17 09/24/17 06:59 18:59 Intake Total 900 Balance 900 - Medications Medications: Current Medications Amlodipine Besylate (Norvasc) 10 mg PO DAILY [facility] Last Admin: 09/23/17 10:20 Dose: 10 mg Enalapril Maleate (Vasotec) 10 mg PO DAILY [facility] Last Admin: 09/23/17 10:20 Dose: 10 mg Enoxaparin Sodium (Lovenox) 30 mg SC DAILY [facility] Last Admin: 09/23/17 10:21 Dose: 30 mg Piperacillin Sod/Tazobactam Sod (Zosyn 3.375 Gm Iv Premix) 3.375 gm in 50 mls @ 100 mls/hr IVPB Q6H [facility] Last Admin: 09/24/17 06:39 Dose: 100 mls/hr Insulin Aspart (Novolog) 0 unit SC ACHS [facility] PRN Reason: Protocol Last Admin: 09/23/17 22:04 Dose: Not Given Insulin Glargine (Lantus) 10 unit SC HS [facility] Last Admin: 09/22/17 22:08 Dose: 10 units Ondansetron HCl (Zofran Inj) 4 mg IVP Q6H PRN PRN Reason: Nausea/Vomiting Last Admin: 09/23/17 21:56 Dose: 4 mg Saccharomyces Boulardii (Florastor) 250 mg PO BID [facility] Last Admin: 09/23/17 17:47 Dose: 250 mg Sodium Hypochlorite (Dakins Solution 0.125%) 1 appl TOP QSHIFT [facility] Last Admin: 09/24/17 05:18 Dose: Not Given Tramadol HCl (Ultram) 50 mg PO Q6H PRN PRN Reason: Pain, moderate (4-7) Last Admin: 09/24/17 00:24 Dose: 50 mg - Labs Labs: 09/24/17 05:17 09/24/17 05:17 PT 10.7 SECONDS (9.7-12.2) 09/24/17 05:17 INR 1.0 09/24/17 05:17 APTT 28 SECONDS (21-34) 09/24/17 05:17 - Constitutional Appears: Non-toxic, No Acute Distress - Head Exam Head Exam: ATRAUMATIC, NORMAL INSPECTION - Eye Exam Eye Exam: EOMI, Normal appearance - ENT Exam ENT Exam: Mucous Membranes Moist - Neck Exam Neck Exam: Full ROM - Respiratory Exam Respiratory Exam: NORMAL BREATHING PATTERN - Cardiovascular Exam Cardiovascular Exam: +S1, +S2 - GI/Abdominal Exam GI & Abdominal Exam: Soft, Normal Bowel Sounds - Extremities Exam Extremities Exam: Full ROM - Neurological Exam Neurological Exam: Alert, Awake, Oriented x3 - Psychiatric Exam Psychiatric exam: Normal Affect, Normal Mood - Skin Skin Exam: Normal Color, Warm Assessment and Plan (1) Hypoglycemia Status: Acute (2) Diabetic foot ulcer Status: Chronic (3) Diabetes Status: Chronic (4) History of hypertension Status: Chronic (5) Prophylactic measure Status: Acute - Assessment and Plan (Free Text) Assessment: Diabetic foot ulcer Assessment & Plan: Podiatry, ID and surgery on the case PICC line placed. On Zosyn. Added on Florastor. Cont to monitor Cultures grew out proteus XRAY imaging- no apparent signs of osteomyelitis. Much less conspicuous gas in the anterior soft tissues- Tibiotalar region Wound care dressings, Tramadol for pain, Zofran for nausea Angiography ruled out PAD To the OR today for right foot wound debridement with graft application Physical Therapy to evaluate- F/U recommendations F/U recommendations Status: Chronic Hx of Hypoglycemia Assessment & Plan: Be mindful of anti-hyperglycemic med administration in light of hypoglycemic history Head CT ordered- no acute intracranial abnormality Status: Acute Diabetes Assessment & Plan: A1c 11.7 and accuchecks ISS Patient needs better blood sugar management outpatient Status: Chronic History of hypertension Assessment & Plan: On Norvasc and Enalapril Heart healthy diet Status: Chronic Prophylactic measure Assessment & Plan: Lovenox SCDs contraindicated Status: Acute Will await Physical therapy evaluation to determine disposition. Discussed with attending. All management and planning per Dr. Willow Ruiz <Jolanta Ruiz - Last Filed: 09/30/17 12:45> Objective - Vital Signs/Intake and Output Vital Signs (last 24 hours): Temp Pulse Resp BP Pulse Ox 97.5 F L 86 20 108/71 98 09/30/17 08:04 09/30/17 08:04 09/30/17 08:04 09/30/17 09:57 09/30/17 08:04 Intake and Output: 09/30/17 09/30/17 06:59 18:59 Intake Total 600 Output Total 400 Balance 200 - Medications Medications: Current Medications Acetaminophen (Tylenol 325mg Tab) 650 mg PO Q6 PRN PRN Reason: Pain, Mild (1-3) Last Admin: 09/30/17 00:48 Dose: 650 mg Amlodipine Besylate (Norvasc) 10 mg PO DAILY [facility] Last Admin: 09/30/17 09:54 Dose: 10 mg Enalapril Maleate (Vasotec) 10 mg PO DAILY [facility] Last Admin: 09/30/17 09:57 Dose: 10 mg Enoxaparin Sodium (Lovenox) 30 mg SC DAILY [facility] Last Admin: 09/30/17 09:55 Dose: 30 mg Piperacillin Sod/Tazobactam Sod (Zosyn 3.375 Gm Iv Premix) 3.375 gm in 50 mls @ 100 mls/hr IVPB Q6H [facility] Last Admin: 09/30/17 12:31 Dose: 100 mls/hr Insulin Aspart (Novolog) 0 unit SC ACHS [facility] PRN Reason: Protocol Last Admin: 09/30/17 12:30 Dose: 4 unit Insulin Glargine (Lantus) 14 unit SC HS [facility] Last Admin: 09/29/17 21:27 Dose: 14 units Ondansetron HCl (Zofran Inj) 4 mg IVP Q6H PRN PRN Reason: Nausea/Vomiting Last Admin: 09/29/17 17:10 Dose: 4 mg Saccharomyces Boulardii (Florastor) 250 mg PO BID [facility] Last Admin: 09/30/17 09:54 Dose: 250 mg Tramadol HCl (Ultram) 50 mg PO Q6H PRN PRN Reason: Pain, moderate (4-7) Last Admin: 09/29/17 14:37 Dose: 50 mg - Labs Labs: 09/26/17 07:29 09/26/17 07:29 PT 10.7 SECONDS (9.7-12.2) 09/24/17 05:17 INR 1.0 09/24/17 05:17 APTT 28 SECONDS (21-34) 09/24/17 05:17 Attending/Attestation - Attestation I have personally seen and examined this patient.: Yes I have fully participated in the care of the patient.: Yes I have reviewed all pertinent clinical information, including history, physical exam and plan: Yes Notes (Text): Patient examined. No acute distress. Hypoglycemia following n.p.o. overnight. Continue treatment for diabetic foot ulcer, hypoglycemia, DM and HTN.
[2017-09-24] MEDS ORDERED: Bupivacaine 0.5% Inj(30mL) ONE (12:34)
[2017-09-24] MEDS ORDERED: Lidocaine 2% Inj (20ml) ONE (12:35)
[2017-09-24] MEDS ORDERED: Lactated Ringer's 1,000 ML IV ONE (12:58)
[2017-09-24] MEDS ORDERED: Midazolam 2 MG/2 ML VIAL ONE (13:15)
[2017-09-24] MEDS ORDERED: Propofol 10 mg/ml Inj (20 ML) ONE (13:15)
[2017-09-24] MEDS ORDERED: Piperacillin/Tazobact 3.375 gm 100 ML IVPB ONE (13:35)
[2017-09-24] MEDS ORDERED: Bacitracin Ointment 30 GM TUBE ONE (13:43)
--- NOTE | 2017-09-24 14:19 | PCM.SURG1 ---
Surgeon's Initial Post Op Note - Surgeon's Notes Surgeon: Dr. Manny Myles Production Control Planner: Dr. Jim Ruiz PGY-1, Tristian Crews MS-4 Type of Anesthesia: IV Sedation, Local Anesthesia Administered By: Mr. Dennis CRISTINA Pre-Operative Diagnosis: Chronic wound on left foot and heel Operative Findings: See dictation. M: Amnion graft x2, 3-0 vicryl x2. I: 14 cc of 2% lidocaine : 0.5% Marcain 1:1 mixture Post-Operative Diagnosis: Same Operation Performed: Wound debridement with removal of all non-viable soft tissue and graft placement on dorsal foot and posterior heel wound Specimen/Specimens Removed: none Estimated Blood Loss: EBL {In ML}: 10 Blood Products Given: N/A Drains Used: No Drains Post-Op Condition: Good Date of Surgery/Procedure: 09/24/17 Time of Surgery/Procedure: 14:21
[2017-09-24] MEDS ORDERED: Oxycodone/Acetaminophen 5/325 mg Tab PO PRN (14:23)
[2017-09-24] MEDS ORDERED: HYDROmorphone 0.5 mg/0.5 ml ISec IVP PRN (14:26)
--- NOTE | 2017-09-24 16:36 | CP.PCM.PN ---
Subjective - Date & Time of Evaluation Date of Evaluation: 09/24/17 Time of Evaluation: 07:00 - Subjective Subjective: S/P OR DEBRIDEMENT APPEARS COMFORTABLE Objective - Vital Signs/Intake and Output Vital Signs (last 24 hours): Temp Pulse Resp BP Pulse Ox 97.2 F L 89 18 157/107 H 100 09/24/17 15:41 09/24/17 15:41 09/24/17 15:41 09/24/17 15:41 09/24/17 15:41 Intake and Output: 09/24/17 09/24/17 06:59 18:59 Intake Total 900 300 Balance 900 300 - Medications Medications: Current Medications Acetaminophen (Tylenol 325mg Tab) 650 mg PO Q6 PRN PRN Reason: Pain, Mild (1-3) Amlodipine Besylate (Norvasc) 10 mg PO DAILY [facility] Last Admin: 09/24/17 10:00 Dose: Not Given Enalapril Maleate (Vasotec) 10 mg PO DAILY [facility] Last Admin: 09/24/17 10:00 Dose: Not Given Enoxaparin Sodium (Lovenox) 30 mg SC DAILY [facility] Last Admin: 09/23/17 10:21 Dose: 30 mg Piperacillin Sod/Tazobactam Sod (Zosyn 3.375 Gm Iv Premix) 3.375 gm in 50 mls @ 100 mls/hr IVPB Q6H [facility] Last Admin: 09/24/17 13:00 Dose: Not Given Lactated Ringer's (Lactated Ringer's) 1,000 mls @ 100 mls/hr IV .Q10H [facility] Insulin Aspart (Novolog) 0 unit SC ACHS [facility] PRN Reason: Protocol Last Admin: 09/24/17 11:30 Dose: Not Given Insulin Glargine (Lantus) 10 unit SC HS [facility] Last Admin: 09/22/17 22:08 Dose: 10 units Ondansetron HCl (Zofran Inj) 4 mg IVP Q6H PRN PRN Reason: Nausea/Vomiting Last Admin: 09/23/17 21:56 Dose: 4 mg Oxycodone/Acetaminophen (Percocet 5/325 Mg Tab) 2 tab PO Q4H PRN PRN Reason: Pain, severe (8-10) Stop: 09/27/17 14:24 Saccharomyces Boulardii (Florastor) 250 mg PO BID [facility] Last Admin: 09/24/17 10:00 Dose: Not Given Sodium Hypochlorite (Dakins Solution 0.125%) 1 appl TOP QSHIFT [facility] Last Admin: 09/24/17 14:24 Dose: Not Given Tramadol HCl (Ultram) 50 mg PO Q6H PRN PRN Reason: Pain, moderate (4-7) Last Admin: 09/24/17 00:24 Dose: 50 mg - Labs Labs: 09/24/17 05:17 09/24/17 05:17 PT 10.7 SECONDS (9.7-12.2) 09/24/17 05:17 INR 1.0 09/24/17 05:17 APTT 28 SECONDS (21-34) 09/24/17 05:17 - Constitutional Appears: Non-toxic, Chronically Ill - Head Exam Head Exam: NORMOCEPHALIC - Eye Exam Eye Exam: PERRL - ENT Exam ENT Exam: Mucous Membranes Dry - Neck Exam Neck Exam: absent: Lymphadenopathy - Respiratory Exam Respiratory Exam: Decreased Breath Sounds - Cardiovascular Exam Cardiovascular Exam: REGULAR RHYTHM - GI/Abdominal Exam GI & Abdominal Exam: Distended, Soft - Rectal Exam Rectal Exam: Deferred - Exam Exam: NORMAL INSPECTION - Back Exam Back Exam: absent: CVA tenderness (L), CVA tenderness (R) - Neurological Exam Neurological Exam: Alert, Awake, Oriented x3 Assessment and Plan (1) Hypoglycemia Status: Acute (2) Diabetic foot ulcer Status: Chronic
[2017-09-24] MEDS: Lactated Ringer's 1,000 ML IV SCH (17:00)
[2017-09-24] MEDS: Oxycodone/Acetaminophen 5/325 mg Tab PO PRN ×2 (17:03→22:53)
--- NOTE | 2017-09-24 19:53 | CP.PCM.PN ---
Subjective - Date & Time of Evaluation Date of Evaluation: 09/24/17 Time of Evaluation: 09:20 - Subjective Subjective: clinically same Objective - Vital Signs/Intake and Output Vital Signs (last 24 hours): Temp Pulse Resp BP Pulse Ox 97.2 F L 89 18 157/107 H 100 09/24/17 15:41 09/24/17 15:41 09/24/17 15:41 09/24/17 15:41 09/24/17 15:41 Intake and Output: 09/24/17 09/25/17 18:59 06:59 Intake Total 300 Balance 300 - Medications Medications: Current Medications Acetaminophen (Tylenol 325mg Tab) 650 mg PO Q6 PRN PRN Reason: Pain, Mild (1-3) Amlodipine Besylate (Norvasc) 10 mg PO DAILY [facility] Last Admin: 09/24/17 10:00 Dose: Not Given Enalapril Maleate (Vasotec) 10 mg PO DAILY [facility] Last Admin: 09/24/17 10:00 Dose: Not Given Enoxaparin Sodium (Lovenox) 30 mg SC DAILY [facility] Last Admin: 09/23/17 10:21 Dose: 30 mg Piperacillin Sod/Tazobactam Sod (Zosyn 3.375 Gm Iv Premix) 3.375 gm in 50 mls @ 100 mls/hr IVPB Q6H [facility] Last Admin: 09/24/17 18:17 Dose: 100 mls/hr Lactated Ringer's (Lactated Ringer's) 1,000 mls @ 100 mls/hr IV .Q10H [facility] Last Admin: 09/24/17 17:00 Dose: 100 mls/hr Insulin Aspart (Novolog) 0 unit SC ACHS [facility] PRN Reason: Protocol Last Admin: 09/24/17 16:59 Dose: 2 unit Insulin Glargine (Lantus) 10 unit SC HS [facility] Last Admin: 09/22/17 22:08 Dose: 10 units Ondansetron HCl (Zofran Inj) 4 mg IVP Q6H PRN PRN Reason: Nausea/Vomiting Last Admin: 09/23/17 21:56 Dose: 4 mg Oxycodone/Acetaminophen (Percocet 5/325 Mg Tab) 2 tab PO Q4H PRN PRN Reason: Pain, severe (8-10) Stop: 09/27/17 14:24 Last Admin: 09/24/17 17:03 Dose: 2 tab Saccharomyces Boulardii (Florastor) 250 mg PO BID [facility] Last Admin: 09/24/17 17:07 Dose: 250 mg Sodium Hypochlorite (Dakins Solution 0.125%) 1 appl TOP QSHIFT [facility] Last Admin: 09/24/17 14:24 Dose: Not Given Tramadol HCl (Ultram) 50 mg PO Q6H PRN PRN Reason: Pain, moderate (4-7) Last Admin: 09/24/17 00:24 Dose: 50 mg - Labs Labs: 09/24/17 05:17 09/24/17 05:17 PT 10.7 SECONDS (9.7-12.2) 09/24/17 05:17 INR 1.0 09/24/17 05:17 APTT 28 SECONDS (21-34) 09/24/17 05:17 - Constitutional Appears: Well - Head Exam Head Exam: ATRAUMATIC, NORMAL INSPECTION, NORMOCEPHALIC - Eye Exam Eye Exam: EOMI, Normal appearance, PERRL Pupil Exam: NORMAL ACCOMODATION, PERRL - ENT Exam ENT Exam: Mucous Membranes Moist, Normal Exam - Neck Exam Neck Exam: Full ROM, Normal Inspection. absent: Lymphadenopathy - Respiratory Exam Respiratory Exam: Decreased Breath Sounds - Cardiovascular Exam Cardiovascular Exam: REGULAR RHYTHM, +S1, +S2 - GI/Abdominal Exam GI & Abdominal Exam: Soft, Diminished Bowel Sounds - Rectal Exam Rectal Exam: Deferred Assessment and Plan (1) Abdominal pain Status: Acute (2) Back pain Status: Acute (3) Diarrhea Status: Acute (4) Dizziness Status: Acute (5) Headache Status: Acute (6) Homeless single person Status: Acute (7) Hypoglycemia Status: Acute (8) Hypoglycemia Status: Acute (9) Hypoglycemia due to type 1 diabetes mellitus Status: Acute (10) Hypothermia Status: Acute (11) Nausea Status: Acute (12) Near syncope Status: Acute (13) Orthostatic hypotension Status: Acute (14) Prophylactic measure Status: Acute (15) Tachycardia Status: Acute (16) Uncontrolled diabetes mellitus Status: Acute (17) Uncontrolled type 1 diabetes mellitus Status: Acute (18) Diabetes Status: Chronic (19) Diabetic foot ulcer Status: Chronic (20) History of hypertension Status: Chronic (21) Hypertension Status: Chronic (22) Seizure Status: Suspected - Assessment and Plan (Free Text) Plan: Patient examined. Wound debridement done under intravenous sedation and local anaesthesia done with removal of all non-viablesoft tissue and graft placement on dorsal foot and posterior heel wound. Patient better. Continue Piperacillin Tazobactam. Continue long acting acting insulin glargine. Continue sliding-scale insulin. Continue supportive care.
[2017-09-24] MEDS: (Lantus) Insulin Glargine, Recombinant SC SCH (21:38)
[2017-09-25] MEDS: Piperacill/Tazo 3.375gm in Dex 3.375 GM/50 ML BAG IVPB SCH ×4 (01:07→19:00)
[2017-09-25] MEDS: Lactated Ringer's 1,000 ML IV SCH ×4 (01:07→20:30)
--- NOTE | 2017-09-25 06:45 | OP ---
PROCEDURE DATE: 09/24/2017 PREOPERATIVE DIAGNOSIS: Nonhealing diabetic ulceration to the left posterior heel and dorsal foot. POSTOPERATIVE DIAGNOSIS: Nonhealing diabetic ulceration to the left posterior heel and dorsal foot. PROCEDURE: Wound debridement with removal of all nonviable soft tissue and Amnion graft placement on left dorsal foot and posterior heel wound. SURGEON: Manny Myles DPM [employer] EXTENSION EDUCATOR: HAYDEE Amezcua. TYPE OF ANESTHESIA: IV sedation with local. INDICATIONS: The patient is a 27-year-old man presents with nonhealing chronic ulceration to the left foot. The patient has exhausted all conservative treatment at this time and now requests surgical intervention. The patient signed the consent after careful explanation of risks, benefits, complications and alternatives for the surgical procedure. No guarantees were given nor implied and n.p.o. status was confirmed prior to taking the patient to the OR. PREPARATION: The patient was brought into the operating room and placed on the operating room table in supine position. A timeout was performed for identification of the correct patient and the procedure. The patient received a total of 14 mL of 1:1 mixture of 2% lidocaine plain and 0.5%Marcaine plain in a local block fashion. Once the IV sedation and local anesthesia was achieved, the left foot was then prepped and draped in normal sterile manner and the procedure began. DESCRIPTION OF PROCEDURE: Attention was driven to the patient's left foot with use of Misonix wound debrider, dorsal and posterior heel wounds were divided, removing all the fibrosis and devitalized tissue down to the level of granular wound bed, ulcerated site were then flushed with copious amount of normal sterile saline. At this time, the Amnion graft was soaked in normal sterile saline and applied it to the wound site and affixated with 3-0 Vicryl in each corner. The left foot was then dressed with Vaseline-soaked Adaptic, 4 x 4 bolus Adaptic, Kerlix and Coban. POSTOPERATIVE CONDITION: The patient tolerated the anesthesia and the procedure well and was escorted to the recovery room with vital signs stable and neurovascular status intact to the left foot. The patient is to remain nonweightbearing to the left lower extremity and will return to the floor where he will be followed by Podiatry daily. Jim Ruiz DPM Manny Myles DPM
[2017-09-25 07:41] LABS: BASO # 0.1 K/uL (0.0-0.2); BASO % 1.2 % (0.0-2.0); CHLORIDE 98 mmol/L (98-107); EOS # 0.1 K/uL (0.0-0.7); EOS % 2.4 % (0.0-4.0); HEMATOCRIT 27.9 % (35.0-51.0); LYMPH # 1.6 K/uL (1.0-4.3); LYMPH % 30.4 % (20.0-40.0); MEAN CELL VOLUME 85.2 fL (80.0-94.0); MEAN CORPUSCULAR HEMOGLOBIN 28.6 pg (27.0-31.0); MEAN CORPUSCULAR HGB CONC 33.5 g/dL (33.0-37.0); MEAN PLATELET VOLUME 9.3 fL (7.2-11.7); MONO # 0.4 K/uL (0.0-0.8); MONO % 7.1 % (0.0-10.0); NRBC % 0.1 % (0.0-2.0); RED CELL DISTRIBUTION WIDTH 16.3 % (11.5-14.5); SODIUM 134 mmol/L (132-148); WHITE BLOOD COUNT 5.3 K/uL (4.8-10.8)
[2017-09-25 07:42] LABS: POTASSIUM 4.8 mmol/L (3.6-5.2)
[2017-09-25 07:43] LABS: BILIRUBIN,TOTAL 0.6 mg/dL (0.2-1.3); CARBON DIOXIDE 26 mmol/L (22-30); GFR AFRICAN-AMERICAN > 60
[2017-09-25 07:44] LABS: ALB/GLOB RATIO 0.8 (1.0-2.1); ALKALINE PHOSPHATASE 81 U/L (38-126); ALT/SGPT 34 U/L (21-72); AST/SGOT 27 U/L (17-59); BLOOD UREA NITROGEN 28 mg/dL (9-20); CALCIUM 9.2 mg/dl (8.6-10.4); GLUCOSE,RANDOM 325 mg/dL (75-110); MAGNESIUM 1.7 mg/dL (1.6-2.3); PHOSPHOROUS 3.4 mg/dL (2.5-4.5); TOTAL PROTEIN 7.6 g/dL (6.3-8.3)
[2017-09-25] MEDS: Oxycodone/Acetaminophen 5/325 mg Tab PO PRN ×3 (08:06→20:49)
[2017-09-25] MEDS: (Novolog) Insulin Aspart, Recombinant 100 u/ml 10 ml vial SC SCH ×4 (08:06→21:47)
[2017-09-25] MEDS: Saccharomyces Boulardi 250 mg Cap PO SCH ×2 (09:45→17:51)
[2017-09-25] MEDS: Enoxaparin 30 mg Syringe SC SCH (09:45)
--- NOTE | 2017-09-25 14:48 | CP.PCM.PN ---
Subjective - Date & Time of Evaluation Date of Evaluation: 09/25/17 Time of Evaluation: 14:45 - Subjective Subjective: Podiatry note for Dr. Myles 27 yo male patient with PMHx of DM type I was seen at bedside this morning 1 day s/p left foot wound debridement with graft application. Patient is resting comfortably in bed this morning. AAO x3, dressings to Left foot remains clean, dry and intact. Patient denies of any pain to the wounds. Patient denies of any N/V/F/C or SOB today. Patient states that he was nauseous overnight but was given zofran which has helped. Objective - Vital Signs/Intake and Output Vital Signs (last 24 hours): Temp Pulse Resp BP Pulse Ox 98.2 F 93 H 18 144/90 99 09/25/17 07:30 09/25/17 07:30 09/25/17 07:30 09/25/17 09:45 09/25/17 07:30 Intake and Output: 09/25/17 09/25/17 06:59 18:59 Intake Total 1800 Output Total 2250 Balance -450 - Medications Medications: Current Medications Acetaminophen (Tylenol 325mg Tab) 650 mg PO Q6 PRN PRN Reason: Pain, Mild (1-3) Amlodipine Besylate (Norvasc) 10 mg PO DAILY [facility] Last Admin: 09/25/17 09:45 Dose: 10 mg Enalapril Maleate (Vasotec) 10 mg PO DAILY [facility] Last Admin: 09/25/17 09:45 Dose: 10 mg Enoxaparin Sodium (Lovenox) 30 mg SC DAILY [facility] Last Admin: 09/25/17 09:45 Dose: 30 mg Piperacillin Sod/Tazobactam Sod (Zosyn 3.375 Gm Iv Premix) 3.375 gm in 50 mls @ 100 mls/hr IVPB Q6H [facility] Last Admin: 09/25/17 12:41 Dose: 100 mls/hr Lactated Ringer's (Lactated Ringer's) 1,000 mls @ 100 mls/hr IV .Q10H [facility] Last Admin: 09/25/17 14:43 Dose: 100 mls/hr Insulin Aspart (Novolog) 0 unit SC ACHS [facility] PRN Reason: Protocol Last Admin: 09/25/17 12:40 Dose: 4 unit Insulin Glargine (Lantus) 10 unit SC HS [facility] Last Admin: 09/24/17 21:38 Dose: Not Given Ondansetron HCl (Zofran Inj) 4 mg IVP Q6H PRN PRN Reason: Nausea/Vomiting Last Admin: 09/25/17 09:45 Dose: 4 mg Oxycodone/Acetaminophen (Percocet 5/325 Mg Tab) 2 tab PO Q4H PRN PRN Reason: Pain, severe (8-10) Stop: 09/27/17 14:24 Last Admin: 09/25/17 14:43 Dose: 2 tab Saccharomyces Boulardii (Florastor) 250 mg PO BID [facility] Last Admin: 09/25/17 09:45 Dose: 250 mg Sodium Hypochlorite (Dakins Solution 0.125%) 1 appl TOP QSHIFT [facility] Last Admin: 09/25/17 06:33 Dose: Not Given Tramadol HCl (Ultram) 50 mg PO Q6H PRN PRN Reason: Pain, moderate (4-7) Last Admin: 09/24/17 00:24 Dose: 50 mg - Labs Labs: 09/25/17 07:05 09/25/17 07:05 PT 10.7 SECONDS (9.7-12.2) 09/24/17 05:17 INR 1.0 09/24/17 05:17 APTT 28 SECONDS (21-34) 09/24/17 05:17 - Constitutional Appears: Well, Non-toxic, No Acute Distress - Extremities Exam Additional comments: dressing to left lower extremity c/d/i no calf tenderness or pain - Neurological Exam Neurological Exam: Alert, Awake, Oriented x3 - Psychiatric Exam Psychiatric exam: Normal Affect, Normal Mood Assessment and Plan - Assessment and Plan (Free Text) Assessment: 27 yo male patient with type I DM seen at bedside 1 day s/p left foot wound debridement with graft application Plan: patient evaluated and chart reviewed discussed in detail with attending Dr. Myles labs and vitals reviewed; afebrile dressing remains c/d/i to LLE patient to remain nonweightbearing to LLE PT/OT cont. pain mgmt patient stable from podiatry standpoint and can followup with Dr. Myles as outpatient
--- NOTE | 2017-09-25 21:52 | CP.PCM.PN ---
Subjective - Date & Time of Evaluation Date of Evaluation: 09/25/17 Time of Evaluation: 09:40 - Subjective Subjective: clinically same Objective - Vital Signs/Intake and Output Vital Signs (last 24 hours): Temp Pulse Resp BP Pulse Ox 98.5 F 99 H 20 147/95 H 97 09/25/17 16:00 09/25/17 16:00 09/25/17 16:00 09/25/17 16:00 09/25/17 16:00 - Medications Medications: Current Medications Acetaminophen (Tylenol 325mg Tab) 650 mg PO Q6 PRN PRN Reason: Pain, Mild (1-3) Amlodipine Besylate (Norvasc) 10 mg PO DAILY [facility] Last Admin: 09/25/17 09:45 Dose: 10 mg Enalapril Maleate (Vasotec) 10 mg PO DAILY [facility] Last Admin: 09/25/17 09:45 Dose: 10 mg Enoxaparin Sodium (Lovenox) 30 mg SC DAILY [facility] Last Admin: 09/25/17 09:45 Dose: 30 mg Piperacillin Sod/Tazobactam Sod (Zosyn 3.375 Gm Iv Premix) 3.375 gm in 50 mls @ 100 mls/hr IVPB Q6H [facility] Last Admin: 09/25/17 19:00 Dose: 100 mls/hr Lactated Ringer's (Lactated Ringer's) 1,000 mls @ 100 mls/hr IV .Q10H [facility] Last Admin: 09/25/17 14:43 Dose: 100 mls/hr Insulin Aspart (Novolog) 0 unit SC ACHS [facility] PRN Reason: Protocol Last Admin: 09/25/17 21:47 Dose: Not Given Insulin Glargine (Lantus) 10 unit SC HS [facility] Last Admin: 09/24/17 21:38 Dose: Not Given Ondansetron HCl (Zofran Inj) 4 mg IVP Q6H PRN PRN Reason: Nausea/Vomiting Last Admin: 09/25/17 09:45 Dose: 4 mg Oxycodone/Acetaminophen (Percocet 5/325 Mg Tab) 2 tab PO Q4H PRN PRN Reason: Pain, severe (8-10) Stop: 09/27/17 14:24 Last Admin: 09/25/17 20:49 Dose: 2 tab Saccharomyces Boulardii (Florastor) 250 mg PO BID [facility] Last Admin: 09/25/17 17:51 Dose: 250 mg Sodium Hypochlorite (Dakins Solution 0.125%) 1 appl TOP QSHIFT [facility] Last Admin: 09/25/17 06:33 Dose: Not Given Tramadol HCl (Ultram) 50 mg PO Q6H PRN PRN Reason: Pain, moderate (4-7) Last Admin: 09/24/17 00:24 Dose: 50 mg - Labs Labs: 09/25/17 07:05 09/25/17 07:05 PT 10.7 SECONDS (9.7-12.2) 09/24/17 05:17 INR 1.0 09/24/17 05:17 APTT 28 SECONDS (21-34) 09/24/17 05:17 Assessment and Plan (1) Abdominal pain Status: Acute (2) Back pain Status: Acute (3) Diarrhea Status: Acute (4) Dizziness Status: Acute (5) Headache Status: Acute (6) Homeless single person Status: Acute (7) Hypoglycemia Status: Acute (8) Hypoglycemia Status: Acute (9) Hypoglycemia due to type 1 diabetes mellitus Status: Acute (10) Hypothermia Status: Acute (11) Nausea Status: Acute (12) Near syncope Status: Acute (13) Orthostatic hypotension Status: Acute (14) Prophylactic measure Status: Acute (15) Tachycardia Status: Acute (16) Uncontrolled diabetes mellitus Status: Acute (17) Uncontrolled type 1 diabetes mellitus Status: Acute (18) Diabetes Status: Chronic (19) Diabetic foot ulcer Status: Chronic (20) History of hypertension Status: Chronic (21) Hypertension Status: Chronic (22) Seizure Status: Suspected - Assessment and Plan (Free Text) Plan: Patient better. Continue Piperacillin Tazobactam. Continue long acting acting insulin glargine. Continue sliding-scale insulin. Continue supportive care.
[2017-09-25] MEDS: (Lantus) Insulin Glargine, Recombinant SC SCH (22:02)
[2017-09-26] MEDS: Lactated Ringer's 1,000 ML IV SCH ×4 (01:20→16:42)
[2017-09-26] MEDS: Piperacill/Tazo 3.375gm in Dex 3.375 GM/50 ML BAG IVPB SCH ×4 (01:20→19:24)
[2017-09-26 07:44] LABS: BASO # 0.1 K/uL (0.0-0.2); BASO % 1.5 % (0.0-2.0); EOS # 0.1 K/uL (0.0-0.7); EOS % 2.6 % (0.0-4.0); HEMATOCRIT 28.6 % (35.0-51.0); LYMPH # 1.9 K/uL (1.0-4.3); LYMPH % 35.3 % (20.0-40.0); MEAN CORPUSCULAR HGB CONC 32.6 g/dL (33.0-37.0); MONO # 0.5 K/uL (0.0-0.8); MONO % 8.9 % (0.0-10.0); NRBC % 0.1 % (0.0-2.0); RED CELL DISTRIBUTION WIDTH 16.1 % (11.5-14.5); WHITE BLOOD COUNT 5.4 K/uL (4.8-10.8)
[2017-09-26 07:52] LABS: CHLORIDE 96 mmol/L (98-107); POTASSIUM 4.7 mmol/L (3.6-5.2); SODIUM 131 mmol/L (132-148)
[2017-09-26 07:54] LABS: BILIRUBIN,TOTAL 0.6 mg/dL (0.2-1.3); CARBON DIOXIDE 28 mmol/L (22-30); GFR AFRICAN-AMERICAN > 60
[2017-09-26 07:55] LABS: ALB/GLOB RATIO 0.9 (1.0-2.1); ALKALINE PHOSPHATASE 77 U/L (38-126); ALT/SGPT 34 U/L (21-72); AST/SGOT 26 U/L (17-59); BLOOD UREA NITROGEN 22 mg/dL (9-20); GLUCOSE,RANDOM 391 mg/dL (75-110); TOTAL PROTEIN 7.3 g/dL (6.3-8.3)
[2017-09-26] MEDS: (Novolog) Insulin Aspart, Recombinant 100 u/ml 10 ml vial SC SCH ×4 (08:30→22:07)
[2017-09-26] MEDS: Oxycodone/Acetaminophen 5/325 mg Tab PO PRN ×2 (08:33→17:27)
[2017-09-26] MEDS: Saccharomyces Boulardi 250 mg Cap PO SCH ×2 (10:58→17:22)
[2017-09-26] MEDS: Enoxaparin 30 mg Syringe SC SCH (10:58)
--- NOTE | 2017-09-26 12:24 | CP.PCM.PN ---
Subjective - Date & Time of Evaluation Date of Evaluation: 09/26/17 Time of Evaluation: 12:22 - Subjective Subjective: Pt seen at bedside for f/u left foot debridement x 2 with graft application x 2. Pt ok for D/C from Podiatry point of view. Would highly recommend pt to be placed in [facility]. Pt to f/u in [facility] and if this cannot be arranged, pt to f/u in my office. Pt to remain strict non wt bearing on left foot for now. Dressing should be left intact for at least 1 week - do not remove dressing. Objective - Vital Signs/Intake and Output Vital Signs (last 24 hours): Temp Pulse Resp BP Pulse Ox 97.6 F 89 20 153/106 H 99 09/26/17 08:58 09/26/17 08:58 09/26/17 08:58 09/26/17 10:58 09/26/17 08:58 Intake and Output: 09/26/17 09/26/17 06:59 18:59 Intake Total 2100 Output Total 450 Balance 1650 - Medications Medications: Current Medications Acetaminophen (Tylenol 325mg Tab) 650 mg PO Q6 PRN PRN Reason: Pain, Mild (1-3) Amlodipine Besylate (Norvasc) 10 mg PO DAILY [facility] Last Admin: 09/26/17 10:59 Dose: 10 mg Enalapril Maleate (Vasotec) 10 mg PO DAILY [facility] Last Admin: 09/26/17 10:58 Dose: 10 mg Enoxaparin Sodium (Lovenox) 30 mg SC DAILY [facility] Last Admin: 09/26/17 10:58 Dose: 30 mg Piperacillin Sod/Tazobactam Sod (Zosyn 3.375 Gm Iv Premix) 3.375 gm in 50 mls @ 100 mls/hr IVPB Q6H [facility] Last Admin: 09/26/17 06:45 Dose: 100 mls/hr Lactated Ringer's (Lactated Ringer's) 1,000 mls @ 100 mls/hr IV .Q10H [facility] Last Admin: 09/26/17 06:34 Dose: Not Given Insulin Aspart (Novolog) 0 unit SC ACHS [facility] PRN Reason: Protocol Last Admin: 09/26/17 08:30 Dose: 6 unit Insulin Glargine (Lantus) 10 unit SC HS [facility] Last Admin: 09/25/17 22:02 Dose: 10 units Ondansetron HCl (Zofran Inj) 4 mg IVP Q6H PRN PRN Reason: Nausea/Vomiting Last Admin: 09/26/17 06:16 Dose: 4 mg Oxycodone/Acetaminophen (Percocet 5/325 Mg Tab) 2 tab PO Q4H PRN PRN Reason: Pain, severe (8-10) Stop: 09/27/17 14:24 Last Admin: 09/26/17 08:33 Dose: 2 tab Saccharomyces Boulardii (Florastor) 250 mg PO BID [facility] Last Admin: 09/26/17 10:58 Dose: 250 mg Sodium Hypochlorite (Dakins Solution 0.125%) 1 appl TOP QSHIFT [facility] Last Admin: 09/26/17 05:44 Dose: Not Given Tramadol HCl (Ultram) 50 mg PO Q6H PRN PRN Reason: Pain, moderate (4-7) Last Admin: 09/26/17 06:16 Dose: 50 mg - Labs Labs: 09/26/17 07:29 09/26/17 07:29 PT 10.7 SECONDS (9.7-12.2) 09/24/17 05:17 INR 1.0 09/24/17 05:17 APTT 28 SECONDS (21-34) 09/24/17 05:17
--- NOTE | 2017-09-26 15:59 | CP.PCM.PN ---
Subjective - Date & Time of Evaluation Date of Evaluation: 09/26/17 Time of Evaluation: 09:00 - Subjective Subjective: events noted s/p debridement and graft On IV rx to cont same Objective - Vital Signs/Intake and Output Vital Signs (last 24 hours): Temp Pulse Resp BP Pulse Ox 98.2 F 95 H 20 144/92 H 97 09/26/17 15:53 09/26/17 15:53 09/26/17 15:53 09/26/17 15:53 09/26/17 15:53 Intake and Output: 09/26/17 09/26/17 06:59 18:59 Intake Total 2100 Output Total 450 Balance 1650 - Medications Medications: Current Medications Acetaminophen (Tylenol 325mg Tab) 650 mg PO Q6 PRN PRN Reason: Pain, Mild (1-3) Amlodipine Besylate (Norvasc) 10 mg PO DAILY [facility] Last Admin: 09/26/17 10:59 Dose: 10 mg Enalapril Maleate (Vasotec) 10 mg PO DAILY [facility] Last Admin: 09/26/17 10:58 Dose: 10 mg Enoxaparin Sodium (Lovenox) 30 mg SC DAILY [facility] Last Admin: 09/26/17 10:58 Dose: 30 mg Piperacillin Sod/Tazobactam Sod (Zosyn 3.375 Gm Iv Premix) 3.375 gm in 50 mls @ 100 mls/hr IVPB Q6H [facility] Last Admin: 09/26/17 13:58 Dose: 100 mls/hr Lactated Ringer's (Lactated Ringer's) 1,000 mls @ 100 mls/hr IV .Q10H [facility] Last Admin: 09/26/17 12:59 Dose: 100 mls/hr Insulin Aspart (Novolog) 0 unit SC ACHS [facility] PRN Reason: Protocol Last Admin: 09/26/17 12:58 Dose: 5 unit Insulin Glargine (Lantus) 10 unit SC HS [facility] Last Admin: 09/25/17 22:02 Dose: 10 units Ondansetron HCl (Zofran Inj) 4 mg IVP Q6H PRN PRN Reason: Nausea/Vomiting Last Admin: 09/26/17 13:58 Dose: 4 mg Oxycodone/Acetaminophen (Percocet 5/325 Mg Tab) 2 tab PO Q4H PRN PRN Reason: Pain, severe (8-10) Stop: 09/27/17 14:24 Last Admin: 09/26/17 08:33 Dose: 2 tab Saccharomyces Boulardii (Florastor) 250 mg PO BID [facility] Last Admin: 09/26/17 10:58 Dose: 250 mg Sodium Hypochlorite (Dakins Solution 0.125%) 1 appl TOP QSHIFT [facility] Last Admin: 09/26/17 14:21 Dose: Not Given Tramadol HCl (Ultram) 50 mg PO Q6H PRN PRN Reason: Pain, moderate (4-7) Last Admin: 09/26/17 06:16 Dose: 50 mg - Labs Labs: 09/26/17 07:29 09/26/17 07:29 PT 10.7 SECONDS (9.7-12.2) 09/24/17 05:17 INR 1.0 09/24/17 05:17 APTT 28 SECONDS (21-34) 09/24/17 05:17 - Constitutional Appears: Non-toxic, Chronically Ill - Head Exam Head Exam: NORMOCEPHALIC - Eye Exam Eye Exam: PERRL - ENT Exam ENT Exam: Mucous Membranes Dry - Neck Exam Neck Exam: absent: Lymphadenopathy - Respiratory Exam Respiratory Exam: Decreased Breath Sounds - Cardiovascular Exam Cardiovascular Exam: REGULAR RHYTHM - GI/Abdominal Exam GI & Abdominal Exam: Distended, Soft - Rectal Exam Rectal Exam: Deferred - Exam Exam: NORMAL INSPECTION - Extremities Exam Extremities Exam: absent: Pedal Edema - Back Exam Back Exam: absent: CVA tenderness (L), CVA tenderness (R) - Neurological Exam Neurological Exam: Alert, Awake, Oriented x3 - Psychiatric Exam Psychiatric exam: Depressed - Skin Skin Exam: Dry Assessment and Plan (1) Hypoglycemia Status: Acute (2) Diabetic foot ulcer Status: Chronic
--- NOTE | 2017-09-26 19:27 | CP.PCM.PN ---
Subjective - Date & Time of Evaluation Date of Evaluation: 09/26/17 Time of Evaluation: 09:00 - Subjective Subjective: clinically same Objective - Vital Signs/Intake and Output Vital Signs (last 24 hours): Temp Pulse Resp BP Pulse Ox 98.2 F 95 H 20 144/92 H 97 09/26/17 15:53 09/26/17 15:53 09/26/17 15:53 09/26/17 15:53 09/26/17 15:53 - Medications Medications: Current Medications Acetaminophen (Tylenol 325mg Tab) 650 mg PO Q6 PRN PRN Reason: Pain, Mild (1-3) Amlodipine Besylate (Norvasc) 10 mg PO DAILY [facility] Last Admin: 09/26/17 10:59 Dose: 10 mg Enalapril Maleate (Vasotec) 10 mg PO DAILY [facility] Last Admin: 09/26/17 10:58 Dose: 10 mg Enoxaparin Sodium (Lovenox) 30 mg SC DAILY [facility] Last Admin: 09/26/17 10:58 Dose: 30 mg Piperacillin Sod/Tazobactam Sod (Zosyn 3.375 Gm Iv Premix) 3.375 gm in 50 mls @ 100 mls/hr IVPB Q6H [facility] Last Admin: 09/26/17 19:24 Dose: 100 mls/hr Insulin Aspart (Novolog) 0 unit SC [facility] PRN Reason: Protocol Last Admin: 09/26/17 17:22 Dose: 6 unit Insulin Glargine (Lantus) 14 unit SC HS [facility] Ondansetron HCl (Zofran Inj) 4 mg IVP Q6H PRN PRN Reason: Nausea/Vomiting Last Admin: 09/26/17 13:58 Dose: 4 mg Oxycodone/Acetaminophen (Percocet 5/325 Mg Tab) 2 tab PO Q4H PRN PRN Reason: Pain, severe (8-10) Stop: 09/27/17 14:24 Last Admin: 09/26/17 17:27 Dose: 2 tab Saccharomyces Boulardii (Florastor) 250 mg PO BID [facility] Last Admin: 09/26/17 17:22 Dose: 250 mg Sodium Hypochlorite (Dakins Solution 0.125%) 1 appl TOP QSHIFT [facility] Last Admin: 09/26/17 14:21 Dose: Not Given Tramadol HCl (Ultram) 50 mg PO Q6H PRN PRN Reason: Pain, moderate (4-7) Last Admin: 09/26/17 06:16 Dose: 50 mg - Labs Labs: 09/26/17 07:29 09/26/17 07:29 PT 10.7 SECONDS (9.7-12.2) 09/24/17 05:17 INR 1.0 09/24/17 05:17 APTT 28 SECONDS (21-34) 09/24/17 05:17 Assessment and Plan - Assessment and Plan (Free Text) Plan: Continue IV antibiotic wound care follow-up with the podiatry follow-up with ID monitor the fingersticks
[2017-09-26] MEDS: (Lantus) Insulin Glargine, Recombinant SC SCH (22:11)
[2017-09-27] MEDS: Piperacill/Tazo 3.375gm in Dex 3.375 GM/50 ML BAG IVPB SCH ×4 (00:50→19:19)
[2017-09-27] MEDS: Oxycodone/Acetaminophen 5/325 mg Tab PO PRN (06:12)
[2017-09-27] MEDS: (Novolog) Insulin Aspart, Recombinant 100 u/ml 10 ml vial SC SCH ×4 (07:30→21:40)
[2017-09-27] MEDS: Saccharomyces Boulardi 250 mg Cap PO SCH ×2 (09:49→17:23)
[2017-09-27] MEDS: Enoxaparin 30 mg Syringe SC SCH (09:50)
--- NOTE | 2017-09-27 13:25 | CP.PCM.PN ---
Subjective - Date & Time of Evaluation Date of Evaluation: 09/27/17 Time of Evaluation: 13:22 - Subjective Subjective: Pt seen at bedside for f/u left foot debridement x 2 with graft application x 2. Pt ok for D/C from Podiatry point of view. Would highly recommend pt to be placed in [facility]. Pt to f/u in [facility] and if this cannot be arranged, pt to f/u in Dr. Myles's office. Pt to remain strict non wt bearing on left foot for now. Dressing should be left intact for at least 1 week - do not remove dressing. Patient states that yesterday he felt nauseous and was given Zofran which provided him relief. Seen eating lunch at bedside today. Objective - Vital Signs/Intake and Output Vital Signs (last 24 hours): Temp Pulse Resp BP Pulse Ox 98.2 F 94 H 20 121/64 98 09/27/17 07:38 09/27/17 07:38 09/27/17 07:38 09/27/17 09:49 09/27/17 07:38 Intake and Output: 09/27/17 09/27/17 06:59 18:59 Intake Total 890 Output Total 1000 Balance -110 - Medications Medications: Current Medications Acetaminophen (Tylenol 325mg Tab) 650 mg PO Q6 PRN PRN Reason: Pain, Mild (1-3) Amlodipine Besylate (Norvasc) 10 mg PO DAILY [facility] Last Admin: 09/27/17 09:50 Dose: 10 mg Enalapril Maleate (Vasotec) 10 mg PO DAILY [facility] Last Admin: 09/27/17 09:49 Dose: 10 mg Enoxaparin Sodium (Lovenox) 30 mg SC DAILY [facility] Last Admin: 09/27/17 09:50 Dose: 30 mg Piperacillin Sod/Tazobactam Sod (Zosyn 3.375 Gm Iv Premix) 3.375 gm in 50 mls @ 100 mls/hr IVPB Q6H [facility] Last Admin: 09/27/17 06:13 Dose: 100 mls/hr Insulin Aspart (Novolog) 0 unit SC ACHS [facility] PRN Reason: Protocol Last Admin: 09/26/17 22:07 Dose: Not Given Insulin Glargine (Lantus) 14 unit SC HS [facility] Last Admin: 09/26/17 22:11 Dose: 14 units Ondansetron HCl (Zofran Inj) 4 mg IVP Q6H PRN PRN Reason: Nausea/Vomiting Last Admin: 09/27/17 06:12 Dose: 4 mg Saccharomyces Boulardii (Florastor) 250 mg PO BID [facility] Last Admin: 09/27/17 09:49 Dose: 250 mg Sodium Hypochlorite (Dakins Solution 0.125%) 1 appl TOP QSHIFT [facility] Last Admin: 09/27/17 06:09 Dose: Not Given Tramadol HCl (Ultram) 50 mg PO Q6H PRN PRN Reason: Pain, moderate (4-7) Last Admin: 09/26/17 06:16 Dose: 50 mg - Labs Labs: 09/26/17 07:29 09/26/17 07:29 PT 10.7 SECONDS (9.7-12.2) 09/24/17 05:17 INR 1.0 09/24/17 05:17 APTT 28 SECONDS (21-34) 09/24/17 05:17 - Constitutional Appears: Well, Non-toxic, No Acute Distress - Neurological Exam Neurological Exam: Alert, Awake, Oriented x3 - Psychiatric Exam Psychiatric exam: Normal Affect, Normal Mood Assessment and Plan - Assessment and Plan (Free Text) Assessment: 27 yo male patient with type I DM seen at bedside 3 days s/p left foot wound debridement with graft application Plan: patient evaluated and chart reviewed discussed in detail with attending Dr. Myles labs and vitals reviewed; afebrile dressing remains c/d/i to LLE patient to remain nonweightbearing to LLE PT/OT cont. pain mgmt patient stable from podiatry standpoint and can followup with Dr. Myles as outpatient
--- NOTE | 2017-09-27 15:52 | CP.PCM.PN ---
Subjective - Date & Time of Evaluation Date of Evaluation: 09/27/17 Time of Evaluation: 21:30 - Subjective Subjective: clinically same. Objective - Vital Signs/Intake and Output Vital Signs (last 24 hours): Temp Pulse Resp BP Pulse Ox 98.2 F 94 H 20 121/64 98 09/27/17 07:38 09/27/17 07:38 09/27/17 07:38 09/27/17 09:49 09/27/17 07:38 Intake and Output: 09/27/17 09/27/17 06:59 18:59 Intake Total 890 Output Total 1000 Balance -110 - Medications Medications: Current Medications Acetaminophen (Tylenol 325mg Tab) 650 mg PO Q6 PRN PRN Reason: Pain, Mild (1-3) Amlodipine Besylate (Norvasc) 10 mg PO DAILY [facility] Last Admin: 09/27/17 09:50 Dose: 10 mg Enalapril Maleate (Vasotec) 10 mg PO DAILY [facility] Last Admin: 09/27/17 09:49 Dose: 10 mg Enoxaparin Sodium (Lovenox) 30 mg SC DAILY [facility] Last Admin: 09/27/17 09:50 Dose: 30 mg Piperacillin Sod/Tazobactam Sod (Zosyn 3.375 Gm Iv Premix) 3.375 gm in 50 mls @ 100 mls/hr IVPB Q6H [facility] Last Admin: 09/27/17 13:27 Dose: 100 mls/hr Insulin Aspart (Novolog) 0 unit SC ACHS [facility] PRN Reason: Protocol Last Admin: 09/27/17 11:30 Dose: 3 unit Insulin Glargine (Lantus) 14 unit SC HS [facility] Last Admin: 09/26/17 22:11 Dose: 14 units Ondansetron HCl (Zofran Inj) 4 mg IVP Q6H PRN PRN Reason: Nausea/Vomiting Last Admin: 09/27/17 06:12 Dose: 4 mg Saccharomyces Boulardii (Florastor) 250 mg PO BID [facility] Last Admin: 09/27/17 09:49 Dose: 250 mg Sodium Hypochlorite (Dakins Solution 0.125%) 1 appl TOP QSHIFT [facility] Last Admin: 09/27/17 14:00 Dose: Not Given Tramadol HCl (Ultram) 50 mg PO Q6H PRN PRN Reason: Pain, moderate (4-7) Last Admin: 09/26/17 06:16 Dose: 50 mg - Labs Labs: 09/26/17 07:29 09/26/17 07:29 PT 10.7 SECONDS (9.7-12.2) 09/24/17 05:17 INR 1.0 09/24/17 05:17 APTT 28 SECONDS (21-34) 09/24/17 05:17 - Constitutional Appears: Well - Head Exam Head Exam: ATRAUMATIC, NORMAL INSPECTION, NORMOCEPHALIC - Eye Exam Eye Exam: EOMI, Normal appearance, PERRL Pupil Exam: NORMAL ACCOMODATION, PERRL - ENT Exam ENT Exam: Mucous Membranes Moist, Normal Exam - Neck Exam Neck Exam: Full ROM, Normal Inspection. absent: Lymphadenopathy - Respiratory Exam Respiratory Exam: Clear to Ausculation Bilateral, NORMAL BREATHING PATTERN - Cardiovascular Exam Cardiovascular Exam: REGULAR RHYTHM, +S1, +S2. absent: Murmur - GI/Abdominal Exam GI & Abdominal Exam: Soft, Normal Bowel Sounds. absent: Tenderness - Rectal Exam Rectal Exam: Deferred, NORMAL INSPECTION - Neurological Exam Neurological Exam: Alert, Awake, CN II-XII Intact, Normal Gait, Oriented x3 Assessment and Plan (1) Abdominal pain Status: Acute (2) Back pain Status: Acute (3) Diarrhea Status: Acute (4) Dizziness Status: Acute (5) Headache Status: Acute (6) Homeless single person Status: Acute (7) Hypoglycemia Status: Acute (8) Hypoglycemia Status: Acute (9) Hypoglycemia due to type 1 diabetes mellitus Status: Acute (10) Hypothermia Status: Acute (11) Nausea Status: Acute (12) Near syncope Status: Acute (13) Orthostatic hypotension Status: Acute (14) Prophylactic measure Status: Acute (15) Tachycardia Status: Acute (16) Uncontrolled diabetes mellitus Status: Acute (17) Uncontrolled type 1 diabetes mellitus Status: Acute (18) Diabetes Status: Chronic (19) Diabetic foot ulcer Status: Chronic (20) History of hypertension Status: Chronic (21) Hypertension Status: Chronic (22) Seizure Status: Suspected - Assessment and Plan (Free Text) Assessment: Patient better. Continue Piperacillin Tazobactam. Continue long acting acting insulin glargine. Continue sliding-scale insulin. Continue supportive care.
[2017-09-27] MEDS ORDERED: (Novolog) Insulin Aspart, Recombinant 100 u/ml 10 ml vial SC ONE (21:32)
[2017-09-27] MEDS: (Lantus) Insulin Glargine, Recombinant SC SCH (21:39)
[2017-09-28] MEDS: Piperacill/Tazo 3.375gm in Dex 3.375 GM/50 ML BAG IVPB SCH ×4 (01:37→19:02)
[2017-09-28] MEDS: (Novolog) Insulin Aspart, Recombinant 100 u/ml 10 ml vial SC SCH ×4 (09:35→22:00)
[2017-09-28] MEDS: Saccharomyces Boulardi 250 mg Cap PO SCH ×2 (09:37→17:32)
[2017-09-28] MEDS: Enoxaparin 30 mg Syringe SC SCH (09:40)
--- NOTE | 2017-09-28 13:37 | CP.PCM.PN ---
Subjective - Date & Time of Evaluation Date of Evaluation: 09/28/17 Time of Evaluation: 09:00 - Subjective Subjective: s/p debridement and skin graft to LLE glucose still fluctuating no fever Objective - Vital Signs/Intake and Output Vital Signs (last 24 hours): Temp Pulse Resp BP Pulse Ox 97.3 F L 86 20 147/87 99 09/28/17 07:57 09/28/17 07:57 09/28/17 07:57 09/28/17 09:37 09/28/17 07:57 Intake and Output: 09/28/17 09/28/17 06:59 18:59 Intake Total Balance - Medications Medications: Current Medications Acetaminophen (Tylenol 325mg Tab) 650 mg PO Q6 PRN PRN Reason: Pain, Mild (1-3) Amlodipine Besylate (Norvasc) 10 mg PO DAILY [facility] Last Admin: 09/28/17 09:37 Dose: 10 mg Enalapril Maleate (Vasotec) 10 mg PO DAILY [facility] Last Admin: 09/28/17 09:37 Dose: 10 mg Enoxaparin Sodium (Lovenox) 30 mg SC DAILY [facility] Last Admin: 09/28/17 09:40 Dose: 30 mg Piperacillin Sod/Tazobactam Sod (Zosyn 3.375 Gm Iv Premix) 3.375 gm in 50 mls @ 100 mls/hr IVPB Q6H [facility] Last Admin: 09/28/17 12:24 Dose: 100 mls/hr Insulin Aspart (Novolog) 0 unit SC ACHS [facility] PRN Reason: Protocol Last Admin: 09/28/17 12:23 Dose: 8 unit Insulin Glargine (Lantus) 14 unit SC HS [facility] Last Admin: 09/27/17 21:39 Dose: 14 units Ondansetron HCl (Zofran Inj) 4 mg IVP Q6H PRN PRN Reason: Nausea/Vomiting Last Admin: 09/28/17 00:33 Dose: 4 mg Saccharomyces Boulardii (Florastor) 250 mg PO BID [facility] Last Admin: 09/28/17 09:37 Dose: 250 mg Sodium Hypochlorite (Dakins Solution 0.125%) 1 appl TOP QSHIFT [facility] Last Admin: 09/28/17 05:00 Dose: Not Given Tramadol HCl (Ultram) 50 mg PO Q6H PRN PRN Reason: Pain, moderate (4-7) Last Admin: 09/28/17 12:29 Dose: 50 mg - Labs Labs: 09/26/17 07:29 09/26/17 07:29 PT 10.7 SECONDS (9.7-12.2) 09/24/17 05:17 INR 1.0 09/24/17 05:17 APTT 28 SECONDS (21-34) 09/24/17 05:17 - Constitutional Appears: Non-toxic, Chronically Ill - Head Exam Head Exam: NORMOCEPHALIC - Eye Exam Eye Exam: PERRL. absent: Scleral icterus - ENT Exam ENT Exam: Mucous Membranes Dry - Neck Exam Neck Exam: absent: Lymphadenopathy - Respiratory Exam Respiratory Exam: Decreased Breath Sounds - Cardiovascular Exam Cardiovascular Exam: REGULAR RHYTHM - GI/Abdominal Exam GI & Abdominal Exam: Distended, Soft - Rectal Exam Rectal Exam: Deferred - Exam Exam: NORMAL INSPECTION - Extremities Exam Extremities Exam: absent: Pedal Edema - Back Exam Back Exam: absent: CVA tenderness (L), paraspinal tenderness - Neurological Exam Neurological Exam: Alert, Awake, Oriented x3 - Psychiatric Exam Psychiatric exam: Normal Mood - Skin Skin Exam: Dry Assessment and Plan (1) Hypoglycemia Status: Acute (2) Diabetic foot ulcer Status: Chronic - Assessment and Plan (Free Text) Plan: iv rx renewed after reviewing labs and examining pt
--- NOTE | 2017-09-28 17:23 | CP.PCM.PN ---
Subjective - Date & Time of Evaluation Date of Evaluation: 09/28/17 Time of Evaluation: 08:40 - Subjective Subjective: clinically same Objective - Vital Signs/Intake and Output Vital Signs (last 24 hours): Temp Pulse Resp BP Pulse Ox 98.4 F 89 20 129/78 96 09/28/17 17:08 09/28/17 17:08 09/28/17 17:08 09/28/17 17:08 09/28/17 17:08 Intake and Output: 09/28/17 09/28/17 06:59 18:59 Intake Total Balance - Medications Medications: Current Medications Acetaminophen (Tylenol 325mg Tab) 650 mg PO Q6 PRN PRN Reason: Pain, Mild (1-3) Amlodipine Besylate (Norvasc) 10 mg PO DAILY [facility] Last Admin: 09/28/17 09:37 Dose: 10 mg Enalapril Maleate (Vasotec) 10 mg PO DAILY [facility] Last Admin: 09/28/17 09:37 Dose: 10 mg Enoxaparin Sodium (Lovenox) 30 mg SC DAILY [facility] Last Admin: 09/28/17 09:40 Dose: 30 mg Piperacillin Sod/Tazobactam Sod (Zosyn 3.375 Gm Iv Premix) 3.375 gm in 50 mls @ 100 mls/hr IVPB Q6H [facility] Last Admin: 09/28/17 12:24 Dose: 100 mls/hr Insulin Aspart (Novolog) 0 unit SC ACHS [facility] PRN Reason: Protocol Last Admin: 09/28/17 12:23 Dose: 8 unit Insulin Glargine (Lantus) 14 unit SC HS [facility] Last Admin: 09/27/17 21:39 Dose: 14 units Ondansetron HCl (Zofran Inj) 4 mg IVP Q6H PRN PRN Reason: Nausea/Vomiting Last Admin: 09/28/17 16:27 Dose: 4 mg Saccharomyces Boulardii (Florastor) 250 mg PO BID [facility] Last Admin: 09/28/17 09:37 Dose: 250 mg Sodium Hypochlorite (Dakins Solution 0.125%) 1 appl TOP QSHIFT [facility] Last Admin: 09/28/17 14:29 Dose: Not Given Tramadol HCl (Ultram) 50 mg PO Q6H PRN PRN Reason: Pain, moderate (4-7) Last Admin: 09/28/17 12:29 Dose: 50 mg - Labs Labs: 09/26/17 07:29 09/26/17 07:29 PT 10.7 SECONDS (9.7-12.2) 09/24/17 05:17 INR 1.0 09/24/17 05:17 APTT 28 SECONDS (21-34) 09/24/17 05:17 - Constitutional Appears: Well - Head Exam Head Exam: ATRAUMATIC, NORMAL INSPECTION, NORMOCEPHALIC - Eye Exam Eye Exam: EOMI, Normal appearance, PERRL Pupil Exam: NORMAL ACCOMODATION, PERRL - ENT Exam ENT Exam: Mucous Membranes Moist, Normal Exam - Neck Exam Neck Exam: Full ROM, Normal Inspection. absent: Lymphadenopathy - Respiratory Exam Respiratory Exam: Decreased Breath Sounds - Cardiovascular Exam Cardiovascular Exam: REGULAR RHYTHM, +S1, +S2 - GI/Abdominal Exam GI & Abdominal Exam: Soft, Diminished Bowel Sounds - Rectal Exam Rectal Exam: Deferred Assessment and Plan (1) Abdominal pain Status: Acute (2) Back pain Status: Acute (3) Diarrhea Status: Acute (4) Dizziness Status: Acute (5) Headache Status: Acute (6) Homeless single person Status: Acute (7) Hypoglycemia Status: Acute (8) Hypoglycemia Status: Acute (9) Hypoglycemia due to type 1 diabetes mellitus Status: Acute (10) Hypothermia Status: Acute (11) Nausea Status: Acute (12) Near syncope Status: Acute (13) Orthostatic hypotension Status: Acute (14) Prophylactic measure Status: Acute (15) Tachycardia Status: Acute (16) Uncontrolled diabetes mellitus Status: Acute (17) Uncontrolled type 1 diabetes mellitus Status: Acute (18) Diabetes Status: Chronic (19) Diabetic foot ulcer Status: Chronic (20) History of hypertension Status: Chronic (21) Hypertension Status: Chronic (22) Seizure Status: Suspected - Assessment and Plan (Free Text) Plan: Patient better. Continue Piperacillin Tazobactam. Continue long acting acting insulin glargine. Continue sliding-scale insulin. Continue supportive care.
--- NOTE | 2017-09-28 17:38 | CP.PCM.PN ---
Subjective - Date & Time of Evaluation Date of Evaluation: 09/28/17 Time of Evaluation: 12:36 - Subjective Subjective: Pt seen at bedside for f/u left foot debridement x 2 with graft application x 2. Pt ok for D/C from Podiatry point of view. Would highly recommend pt to be placed in [facility]. Pt to f/u in [facility] and if this cannot be arranged, pt to f/u in Dr. Myles's office. Pt to remain strict non wt bearing on left foot for now. Dressing should be left intact for at least 1 week - do not remove dressing. Patient refused to take out headphones or open eyes after multiple attempts to get his attention. Patient was listening to music and nodding his head to the beat, with regular breathing and no signs of distress. Objective - Vital Signs/Intake and Output Vital Signs (last 24 hours): Temp Pulse Resp BP Pulse Ox 98.4 F 89 20 129/78 96 09/28/17 17:08 09/28/17 17:08 09/28/17 17:08 09/28/17 17:08 09/28/17 17:08 Intake and Output: 09/28/17 09/28/17 06:59 18:59 Intake Total Balance - Medications Medications: Current Medications Acetaminophen (Tylenol 325mg Tab) 650 mg PO Q6 PRN PRN Reason: Pain, Mild (1-3) Amlodipine Besylate (Norvasc) 10 mg PO DAILY [facility] Last Admin: 09/28/17 09:37 Dose: 10 mg Enalapril Maleate (Vasotec) 10 mg PO DAILY [facility] Last Admin: 09/28/17 09:37 Dose: 10 mg Enoxaparin Sodium (Lovenox) 30 mg SC DAILY [facility] Last Admin: 09/28/17 09:40 Dose: 30 mg Piperacillin Sod/Tazobactam Sod (Zosyn 3.375 Gm Iv Premix) 3.375 gm in 50 mls @ 100 mls/hr IVPB Q6H [facility] Last Admin: 09/28/17 12:24 Dose: 100 mls/hr Insulin Aspart (Novolog) 0 unit SC ACHS [facility] PRN Reason: Protocol Last Admin: 09/28/17 17:33 Dose: 4 unit Insulin Glargine (Lantus) 14 unit SC HS [facility] Last Admin: 09/27/17 21:39 Dose: 14 units Ondansetron HCl (Zofran Inj) 4 mg IVP Q6H PRN PRN Reason: Nausea/Vomiting Last Admin: 09/28/17 16:27 Dose: 4 mg Saccharomyces Boulardii (Florastor) 250 mg PO BID [facility] Last Admin: 09/28/17 17:32 Dose: 250 mg Sodium Hypochlorite (Dakins Solution 0.125%) 1 appl TOP QSHIFT [facility] Last Admin: 09/28/17 14:29 Dose: Not Given Tramadol HCl (Ultram) 50 mg PO Q6H PRN PRN Reason: Pain, moderate (4-7) Last Admin: 09/28/17 12:29 Dose: 50 mg - Labs Labs: 09/26/17 07:29 09/26/17 07:29 PT 10.7 SECONDS (9.7-12.2) 09/24/17 05:17 INR 1.0 09/24/17 05:17 APTT 28 SECONDS (21-34) 09/24/17 05:17 - Constitutional Appears: Well, Non-toxic, No Acute Distress - Neurological Exam Neurological Exam: Awake - Psychiatric Exam Psychiatric exam: Normal Affect, Normal Mood Assessment and Plan - Assessment and Plan (Free Text) Assessment: 27 yo male patient with type I DM seen at bedside 4 days s/p left foot wound debridement with graft application Plan: patientchart reviewed discussed in detail with attending Dr. Myles labs and vitals reviewed; afebrile dressing remains c/d/i to LLE patient to remain nonweightbearing to LLE PT/OT cont. pain mgmt patient stable from podiatry standpoint and can followup with Dr. Myles as outpatient
[2017-09-28] MEDS: (Lantus) Insulin Glargine, Recombinant SC SCH (21:54)
[2017-09-29] MEDS: Piperacill/Tazo 3.375gm in Dex 3.375 GM/50 ML BAG IVPB SCH ×4 (00:03→18:02)
[2017-09-29] MEDS ORDERED: (Novolog) Insulin Aspart, Recombinant 100 u/ml 10 ml vial SC ONE (03:29)
--- NOTE | 2017-09-29 08:25 | CP.PCM.PN ---
Subjective - Date & Time of Evaluation Date of Evaluation: 09/29/17 Time of Evaluation: 08:40 - Subjective Subjective: clinically same Objective - Vital Signs/Intake and Output Vital Signs (last 24 hours): Temp Pulse Resp BP Pulse Ox 97.6 F 96 H 20 111/75 100 09/28/17 23:27 09/28/17 23:27 09/28/17 23:27 09/28/17 23:27 09/28/17 23:27 Intake and Output: 09/29/17 09/29/17 06:59 18:59 Intake Total 200 Balance 200 - Medications Medications: Current Medications Acetaminophen (Tylenol 325mg Tab) 650 mg PO Q6 PRN PRN Reason: Pain, Mild (1-3) Amlodipine Besylate (Norvasc) 10 mg PO DAILY [facility] Last Admin: 09/28/17 09:37 Dose: 10 mg Enalapril Maleate (Vasotec) 10 mg PO DAILY [facility] Last Admin: 09/28/17 09:37 Dose: 10 mg Enoxaparin Sodium (Lovenox) 30 mg SC DAILY [facility] Last Admin: 09/28/17 09:40 Dose: 30 mg Piperacillin Sod/Tazobactam Sod (Zosyn 3.375 Gm Iv Premix) 3.375 gm in 50 mls @ 100 mls/hr IVPB Q6H [facility] Last Admin: 09/29/17 06:36 Dose: 100 mls/hr Insulin Aspart (Novolog) 0 unit SC ACHS [facility] PRN Reason: Protocol Last Admin: 09/28/17 22:00 Dose: 2 unit Insulin Glargine (Lantus) 14 unit SC HS [facility] Last Admin: 09/28/17 21:54 Dose: 14 units Ondansetron HCl (Zofran Inj) 4 mg IVP Q6H PRN PRN Reason: Nausea/Vomiting Last Admin: 09/28/17 16:27 Dose: 4 mg Saccharomyces Boulardii (Florastor) 250 mg PO BID [facility] Last Admin: 09/28/17 17:32 Dose: 250 mg Sodium Hypochlorite (Dakins Solution 0.125%) 1 appl TOP QSHIFT [facility] Last Admin: 09/29/17 05:17 Dose: Not Given Tramadol HCl (Ultram) 50 mg PO Q6H PRN PRN Reason: Pain, moderate (4-7) Last Admin: 09/28/17 19:54 Dose: 50 mg - Labs Labs: 09/26/17 07:29 09/26/17 07:29 PT 10.7 SECONDS (9.7-12.2) 09/24/17 05:17 INR 1.0 09/24/17 05:17 APTT 28 SECONDS (21-34) 09/24/17 05:17 - Constitutional Appears: Well - Head Exam Head Exam: ATRAUMATIC, NORMAL INSPECTION, NORMOCEPHALIC - Eye Exam Eye Exam: EOMI, Normal appearance, PERRL Pupil Exam: NORMAL ACCOMODATION, PERRL - ENT Exam ENT Exam: Mucous Membranes Moist, Normal Exam - Neck Exam Neck Exam: Full ROM, Normal Inspection. absent: Lymphadenopathy - Respiratory Exam Respiratory Exam: Clear to Ausculation Bilateral, NORMAL BREATHING PATTERN - Cardiovascular Exam Cardiovascular Exam: REGULAR RHYTHM, +S1, +S2. absent: Murmur - GI/Abdominal Exam GI & Abdominal Exam: Soft, Normal Bowel Sounds. absent: Tenderness - Back Exam Back Exam: NORMAL INSPECTION - Neurological Exam Neurological Exam: Alert, Awake, CN II-XII Intact, Normal Gait, Oriented x3 - Psychiatric Exam Psychiatric exam: Normal Affect, Normal Mood Assessment and Plan (1) Abdominal pain Status: Acute (2) Back pain Status: Acute (3) Diarrhea Status: Acute (4) Dizziness Status: Acute (5) Headache Status: Acute (6) Homeless single person Status: Acute (7) Hypoglycemia Status: Acute (8) Hypoglycemia Status: Acute (9) Hypoglycemia due to type 1 diabetes mellitus Status: Acute (10) Hypothermia Status: Acute (11) Nausea Status: Acute (12) Near syncope Status: Acute (13) Orthostatic hypotension Status: Acute (14) Prophylactic measure Status: Acute (15) Tachycardia Status: Acute (16) Uncontrolled diabetes mellitus Status: Acute (17) Uncontrolled type 1 diabetes mellitus Status: Acute (18) Diabetes Status: Chronic (19) Diabetic foot ulcer Status: Chronic (20) History of hypertension Status: Chronic (21) Hypertension Status: Chronic (22) Seizure Status: Suspected - Assessment and Plan (Free Text) Plan: Patient better. Continue Piperacillin Tazobactam. Continue long acting acting insulin glargine. Continue sliding-scale insulin. Continue supportive care.
[2017-09-29] MEDS: Saccharomyces Boulardi 250 mg Cap PO SCH ×2 (10:55→18:02)
[2017-09-29] MEDS: (Novolog) Insulin Aspart, Recombinant 100 u/ml 10 ml vial SC SCH ×4 (10:55→22:22)
[2017-09-29] MEDS: Enoxaparin 30 mg Syringe SC SCH (12:17)
--- NOTE | 2017-09-29 12:17 | CP.PCM.PN ---
Subjective - Date & Time of Evaluation Date of Evaluation: 09/29/17 Time of Evaluation: 08:00 - Subjective Subjective: iv rx in progress s/p left leg debridement and skin graft cont rx for 10 -14 more days Objective - Vital Signs/Intake and Output Vital Signs (last 24 hours): Temp Pulse Resp BP Pulse Ox 97.8 F 94 H 20 142/98 H 97 09/29/17 08:38 09/29/17 10:55 09/29/17 08:38 09/29/17 10:55 09/29/17 08:38 Intake and Output: 09/29/17 09/29/17 06:59 18:59 Intake Total 200 Balance 200 - Medications Medications: Current Medications Acetaminophen (Tylenol 325mg Tab) 650 mg PO Q6 PRN PRN Reason: Pain, Mild (1-3) Amlodipine Besylate (Norvasc) 10 mg PO DAILY [facility] Last Admin: 09/28/17 09:37 Dose: 10 mg Enalapril Maleate (Vasotec) 10 mg PO DAILY [facility] Last Admin: 09/28/17 09:37 Dose: 10 mg Enoxaparin Sodium (Lovenox) 30 mg SC DAILY [facility] Last Admin: 09/28/17 09:40 Dose: 30 mg Piperacillin Sod/Tazobactam Sod (Zosyn 3.375 Gm Iv Premix) 3.375 gm in 50 mls @ 100 mls/hr IVPB Q6H [facility] Last Admin: 09/29/17 06:36 Dose: 100 mls/hr Insulin Aspart (Novolog) 0 unit SC ACHS [facility] PRN Reason: Protocol Last Admin: 09/28/17 22:00 Dose: 2 unit Insulin Glargine (Lantus) 14 unit SC HS [facility] Last Admin: 09/28/17 21:54 Dose: 14 units Ondansetron HCl (Zofran Inj) 4 mg IVP Q6H PRN PRN Reason: Nausea/Vomiting Last Admin: 09/28/17 16:27 Dose: 4 mg Saccharomyces Boulardii (Florastor) 250 mg PO BID [facility] Last Admin: 09/28/17 17:32 Dose: 250 mg Sodium Hypochlorite (Dakins Solution 0.125%) 1 appl TOP QSHIFT [facility] Last Admin: 09/29/17 05:17 Dose: Not Given Tramadol HCl (Ultram) 50 mg PO Q6H PRN PRN Reason: Pain, moderate (4-7) Last Admin: 09/28/17 19:54 Dose: 50 mg - Labs Labs: 09/26/17 07:29 09/26/17 07:29 PT 10.7 SECONDS (9.7-12.2) 09/24/17 05:17 INR 1.0 09/24/17 05:17 APTT 28 SECONDS (21-34) 09/24/17 05:17 - Constitutional Appears: Non-toxic, Chronically Ill - Head Exam Head Exam: NORMOCEPHALIC - Eye Exam Eye Exam: PERRL - ENT Exam ENT Exam: Mucous Membranes Dry - Neck Exam Neck Exam: absent: Lymphadenopathy - Respiratory Exam Respiratory Exam: Decreased Breath Sounds - Cardiovascular Exam Cardiovascular Exam: REGULAR RHYTHM - GI/Abdominal Exam GI & Abdominal Exam: Distended - Rectal Exam Rectal Exam: Deferred - Exam Exam: NORMAL INSPECTION - Extremities Exam Extremities Exam: Pedal Edema, Tenderness Assessment and Plan (1) Hypoglycemia Status: Acute (2) Diabetic foot ulcer Status: Chronic
--- NOTE | 2017-09-29 12:18 | CP.PCM.PN ---
<Penny Ponce - Last Filed: 09/29/17 12:17> Subjective - Date & Time of Evaluation Date of Evaluation: 09/29/17 Time of Evaluation: 12:17 - Subjective Subjective: Pt seen at bedside for f/u left foot debridement x 2 with graft application x 2. Pt ok for D/C from Podiatry point of view. Would highly recommend pt to be placed in [facility]. Pt to f/u in [facility] and if this cannot be arranged, pt to f/u in Dr. Myles's office. Pt to remain strict non wt bearing on left foot for now. Dressing should be left intact for at least 1 week - do not remove dressing. Patient refused to take out headphones or open eyes after multiple attempts to get his attention. Patient was listening to music and nodding his head to the beat, with regular breathing and no signs of distress. Objective - Vital Signs/Intake and Output Vital Signs (last 24 hours): Temp Pulse Resp BP Pulse Ox 97.8 F 94 H 20 142/98 H 97 09/29/17 08:38 09/29/17 10:55 09/29/17 08:38 09/29/17 10:55 09/29/17 08:38 Intake and Output: 09/29/17 09/29/17 06:59 18:59 Intake Total 200 Balance 200 - Medications Medications: Current Medications Acetaminophen (Tylenol 325mg Tab) 650 mg PO Q6 PRN PRN Reason: Pain, Mild (1-3) Amlodipine Besylate (Norvasc) 10 mg PO DAILY [facility] Last Admin: 09/28/17 09:37 Dose: 10 mg Enalapril Maleate (Vasotec) 10 mg PO DAILY [facility] Last Admin: 09/28/17 09:37 Dose: 10 mg Enoxaparin Sodium (Lovenox) 30 mg SC DAILY [facility] Last Admin: 09/28/17 09:40 Dose: 30 mg Piperacillin Sod/Tazobactam Sod (Zosyn 3.375 Gm Iv Premix) 3.375 gm in 50 mls @ 100 mls/hr IVPB Q6H [facility] Last Admin: 09/29/17 06:36 Dose: 100 mls/hr Insulin Aspart (Novolog) 0 unit SC ACHS [facility] PRN Reason: Protocol Last Admin: 09/28/17 22:00 Dose: 2 unit Insulin Glargine (Lantus) 14 unit SC HS [facility] Last Admin: 09/28/17 21:54 Dose: 14 units Ondansetron HCl (Zofran Inj) 4 mg IVP Q6H PRN PRN Reason: Nausea/Vomiting Last Admin: 09/28/17 16:27 Dose: 4 mg Saccharomyces Boulardii (Florastor) 250 mg PO BID [facility] Last Admin: 09/28/17 17:32 Dose: 250 mg Sodium Hypochlorite (Dakins Solution 0.125%) 1 appl TOP QSHIFT [facility] Last Admin: 09/29/17 05:17 Dose: Not Given Tramadol HCl (Ultram) 50 mg PO Q6H PRN PRN Reason: Pain, moderate (4-7) Last Admin: 09/28/17 19:54 Dose: 50 mg - Labs Labs: 09/26/17 07:29 09/26/17 07:29 PT 10.7 SECONDS (9.7-12.2) 09/24/17 05:17 INR 1.0 09/24/17 05:17 APTT 28 SECONDS (21-34) 09/24/17 05:17 - Constitutional Appears: Well, Non-toxic, No Acute Distress - Neurological Exam Neurological Exam: Alert, Awake, Oriented x3 - Psychiatric Exam Psychiatric exam: Normal Affect, Normal Mood Assessment and Plan - Assessment and Plan (Free Text) Assessment: 27 yo male patient with type I DM seen at bedside 5 days s/p left foot wound debridement with graft application Plan: patient chart reviewed discussed in detail with attending Dr. Myles labs and vitals reviewed; afebrile dressing remains c/d/i to LLE patient to remain nonweightbearing to LLE PT/OT cont. pain mgmt patient stable from podiatry standpoint and can followup with Dr. Myles as outpatient <Manny Myles - Last Filed: 09/30/17 08:12> Objective - Vital Signs/Intake and Output Vital Signs (last 24 hours): Temp Pulse Resp BP Pulse Ox 97.5 F L 86 20 102/68 98 09/30/17 08:04 09/30/17 08:04 09/30/17 08:04 09/30/17 08:04 09/30/17 08:04 Intake and Output: 09/30/17 09/30/17 06:59 18:59 Intake Total 600 Output Total 400 Balance 200 - Medications Medications: Current Medications Acetaminophen (Tylenol 325mg Tab) 650 mg PO Q6 PRN PRN Reason: Pain, Mild (1-3) Last Admin: 09/30/17 00:48 Dose: 650 mg Amlodipine Besylate (Norvasc) 10 mg PO DAILY [facility] Last Admin: 09/29/17 10:55 Dose: 10 mg Enalapril Maleate (Vasotec) 10 mg PO DAILY [facility] Last Admin: 09/29/17 10:55 Dose: 10 mg Enoxaparin Sodium (Lovenox) 30 mg SC DAILY [facility] Last Admin: 09/29/17 12:17 Dose: 30 mg Piperacillin Sod/Tazobactam Sod (Zosyn 3.375 Gm Iv Premix) 3.375 gm in 50 mls @ 100 mls/hr IVPB Q6H [facility] Last Admin: 09/30/17 06:24 Dose: 100 mls/hr Insulin Aspart (Novolog) 0 unit SC ACHS [facility] PRN Reason: Protocol Last Admin: 09/29/17 22:22 Dose: Not Given Insulin Glargine (Lantus) 14 unit SC HS [facility] Last Admin: 09/29/17 21:27 Dose: 14 units Ondansetron HCl (Zofran Inj) 4 mg IVP Q6H PRN PRN Reason: Nausea/Vomiting Last Admin: 09/29/17 17:10 Dose: 4 mg Saccharomyces Boulardii (Florastor) 250 mg PO BID [facility] Last Admin: 09/29/17 18:02 Dose: 250 mg Sodium Hypochlorite (Dakins Solution 0.125%) 1 appl TOP QSHIFT [facility] Last Admin: 09/30/17 06:23 Dose: Not Given Tramadol HCl (Ultram) 50 mg PO Q6H PRN PRN Reason: Pain, moderate (4-7) Last Admin: 09/29/17 14:37 Dose: 50 mg - Labs Labs: 09/26/17 07:29 09/26/17 07:29 PT 10.7 SECONDS (9.7-12.2) 09/24/17 05:17 INR 1.0 09/24/17 05:17 APTT 28 SECONDS (21-34) 09/24/17 05:17 Attending/Attestation - Attestation I have personally seen and examined this patient.: Yes I have fully participated in the care of the patient.: Yes I have reviewed all pertinent clinical information, including history, physical exam and plan: Yes
[2017-09-29] MEDS: (Lantus) Insulin Glargine, Recombinant SC SCH (21:27)
[2017-09-30] MEDS: Piperacill/Tazo 3.375gm in Dex 3.375 GM/50 ML BAG IVPB SCH ×4 (00:48→19:31)
[2017-09-30] MEDS: (Novolog) Insulin Aspart, Recombinant 100 u/ml 10 ml vial SC SCH ×4 (08:25→21:53)
[2017-09-30] MEDS: Saccharomyces Boulardi 250 mg Cap PO SCH ×2 (09:54→17:26)
[2017-09-30] MEDS: Enoxaparin 30 mg Syringe SC SCH (09:55)
--- NOTE | 2017-09-30 12:42 | CP.PCM.PN ---
<Penny Ponce - Last Filed: 09/30/17 12:40> Subjective - Date & Time of Evaluation Date of Evaluation: 09/30/17 Time of Evaluation: 12:40 - Subjective Subjective: Pt seen at bedside for f/u left foot debridement x 2 with graft application x 2. Pt ok for D/C from Podiatry point of view. Would highly recommend pt to be placed in [facility]. Pt to f/u in [facility] and if this cannot be arranged, pt to f/u in Dr. Myles's office. Pt to remain strict non wt bearing on left foot for now. Dressing should be left intact for at least 1 week - do not remove dressing. Patient appears in NAD and [facility]. . Objective - Vital Signs/Intake and Output Vital Signs (last 24 hours): Temp Pulse Resp BP Pulse Ox 97.5 F L 86 20 108/71 98 09/30/17 08:04 09/30/17 08:04 09/30/17 08:04 09/30/17 09:57 09/30/17 08:04 Intake and Output: 09/30/17 09/30/17 06:59 18:59 Intake Total 600 Output Total 400 Balance 200 - Medications Medications: Current Medications Acetaminophen (Tylenol 325mg Tab) 650 mg PO Q6 PRN PRN Reason: Pain, Mild (1-3) Last Admin: 09/30/17 00:48 Dose: 650 mg Amlodipine Besylate (Norvasc) 10 mg PO DAILY [facility] Last Admin: 09/30/17 09:54 Dose: 10 mg Enalapril Maleate (Vasotec) 10 mg PO DAILY [facility] Last Admin: 09/30/17 09:57 Dose: 10 mg Enoxaparin Sodium (Lovenox) 30 mg SC DAILY [facility] Last Admin: 09/30/17 09:55 Dose: 30 mg Piperacillin Sod/Tazobactam Sod (Zosyn 3.375 Gm Iv Premix) 3.375 gm in 50 mls @ 100 mls/hr IVPB Q6H [facility] Last Admin: 09/30/17 12:31 Dose: 100 mls/hr Insulin Aspart (Novolog) 0 unit SC ACHS [facility] PRN Reason: Protocol Last Admin: 09/30/17 12:30 Dose: 4 unit Insulin Glargine (Lantus) 14 unit SC HS [facility] Last Admin: 09/29/17 21:27 Dose: 14 units Ondansetron HCl (Zofran Inj) 4 mg IVP Q6H PRN PRN Reason: Nausea/Vomiting Last Admin: 09/29/17 17:10 Dose: 4 mg Saccharomyces Boulardii (Florastor) 250 mg PO BID [facility] Last Admin: 09/30/17 09:54 Dose: 250 mg Tramadol HCl (Ultram) 50 mg PO Q6H PRN PRN Reason: Pain, moderate (4-7) Last Admin: 09/29/17 14:37 Dose: 50 mg - Labs Labs: 09/26/17 07:29 09/26/17 07:29 PT 10.7 SECONDS (9.7-12.2) 09/24/17 05:17 INR 1.0 09/24/17 05:17 APTT 28 SECONDS (21-34) 09/24/17 05:17 - Constitutional Appears: Well, Non-toxic, No Acute Distress - Neurological Exam Neurological Exam: Alert, Awake, Oriented x3 - Psychiatric Exam Psychiatric exam: Normal Affect, Normal Mood Assessment and Plan - Assessment and Plan (Free Text) Assessment: 27 yo male patient with type I DM seen at bedside 6 days s/p left foot wound debridement with graft application Plan: patient chart reviewed discussed in detail with attending Dr. Myles labs and vitals reviewed; afebrile dressing remains c/d/i to LLE patient to remain nonweightbearing to LLE PT/OT cont. pain mgmt patient stable from podiatry standpoint and can followup with Dr. Myles as outpatient <Manny Myles - Last Filed: 09/30/17 15:32> Objective - Vital Signs/Intake and Output Vital Signs (last 24 hours): Temp Pulse Resp BP Pulse Ox 97.5 F L 86 20 108/71 98 09/30/17 08:04 09/30/17 08:04 09/30/17 08:04 09/30/17 09:57 09/30/17 08:04 Intake and Output: 09/30/17 09/30/17 06:59 18:59 Intake Total 600 Output Total 400 Balance 200 - Medications Medications: Current Medications Acetaminophen (Tylenol 325mg Tab) 650 mg PO Q6 PRN PRN Reason: Pain, Mild (1-3) Last Admin: 09/30/17 00:48 Dose: 650 mg Amlodipine Besylate (Norvasc) 10 mg PO DAILY [facility] Last Admin: 09/30/17 09:54 Dose: 10 mg Enalapril Maleate (Vasotec) 10 mg PO DAILY [facility] Last Admin: 09/30/17 09:57 Dose: 10 mg Enoxaparin Sodium (Lovenox) 30 mg SC DAILY [facility] Last Admin: 09/30/17 09:55 Dose: 30 mg Piperacillin Sod/Tazobactam Sod (Zosyn 3.375 Gm Iv Premix) 3.375 gm in 50 mls @ 100 mls/hr IVPB Q6H [facility] Last Admin: 09/30/17 12:31 Dose: 100 mls/hr Insulin Aspart (Novolog) 0 unit SC ACHS [facility] PRN Reason: Protocol Last Admin: 09/30/17 12:30 Dose: 4 unit Insulin Glargine (Lantus) 14 unit SC HS [facility] Last Admin: 09/29/17 21:27 Dose: 14 units Ondansetron HCl (Zofran Inj) 4 mg IVP Q6H PRN PRN Reason: Nausea/Vomiting Last Admin: 09/29/17 17:10 Dose: 4 mg Saccharomyces Boulardii (Florastor) 250 mg PO BID [facility] Last Admin: 09/30/17 09:54 Dose: 250 mg - Labs Labs: 09/26/17 07:29 09/26/17 07:29 PT 10.7 SECONDS (9.7-12.2) 09/24/17 05:17 INR 1.0 09/24/17 05:17 APTT 28 SECONDS (21-34) 09/24/17 05:17 Attending/Attestation - Attestation I have personally seen and examined this patient.: Yes I have fully participated in the care of the patient.: Yes I have reviewed all pertinent clinical information, including history, physical exam and plan: Yes
--- NOTE | 2017-09-30 19:51 | CP.PCM.PN ---
Subjective - Date & Time of Evaluation Date of Evaluation: 09/30/17 Time of Evaluation: 08:00 - Subjective Subjective: clinically same Objective - Vital Signs/Intake and Output Vital Signs (last 24 hours): Temp Pulse Resp BP Pulse Ox 97.5 F L 92 H 20 127/88 97 09/30/17 16:00 09/30/17 16:00 09/30/17 16:00 09/30/17 16:00 09/30/17 16:00 - Medications Medications: Current Medications Acetaminophen (Tylenol 325mg Tab) 650 mg PO Q6 PRN PRN Reason: Pain, Mild (1-3) Last Admin: 09/30/17 19:33 Dose: 650 mg Amlodipine Besylate (Norvasc) 10 mg PO DAILY [facility] Last Admin: 09/30/17 09:54 Dose: 10 mg Enalapril Maleate (Vasotec) 10 mg PO DAILY [facility] Last Admin: 09/30/17 09:57 Dose: 10 mg Enoxaparin Sodium (Lovenox) 30 mg SC DAILY [facility] Last Admin: 09/30/17 09:55 Dose: 30 mg Piperacillin Sod/Tazobactam Sod (Zosyn 3.375 Gm Iv Premix) 3.375 gm in 50 mls @ 100 mls/hr IVPB Q6H [facility] Last Admin: 09/30/17 19:31 Dose: 100 mls/hr Insulin Aspart (Novolog) 0 unit SC ACHS [facility] PRN Reason: Protocol Last Admin: 09/30/17 17:26 Dose: 10 unit Insulin Glargine (Lantus) 14 unit SC HS [facility] Last Admin: 09/29/17 21:27 Dose: 14 units Ondansetron HCl (Zofran Inj) 4 mg IVP Q6H PRN PRN Reason: Nausea/Vomiting Last Admin: 09/29/17 17:10 Dose: 4 mg Saccharomyces Boulardii (Florastor) 250 mg PO BID [facility] Last Admin: 09/30/17 17:26 Dose: 250 mg - Labs Labs: 09/26/17 07:29 09/26/17 07:29 PT 10.7 SECONDS (9.7-12.2) 09/24/17 05:17 INR 1.0 09/24/17 05:17 APTT 28 SECONDS (21-34) 09/24/17 05:17 - Constitutional Appears: Well - Head Exam Head Exam: ATRAUMATIC, NORMAL INSPECTION, NORMOCEPHALIC - Eye Exam Eye Exam: EOMI, Normal appearance, PERRL Pupil Exam: NORMAL ACCOMODATION, PERRL - ENT Exam ENT Exam: Mucous Membranes Moist, Normal Exam - Neck Exam Neck Exam: Full ROM, Normal Inspection. absent: Lymphadenopathy - Respiratory Exam Respiratory Exam: Decreased Breath Sounds - Cardiovascular Exam Cardiovascular Exam: REGULAR RHYTHM, +S1, +S2 - GI/Abdominal Exam GI & Abdominal Exam: Soft, Diminished Bowel Sounds - Rectal Exam Rectal Exam: Deferred Assessment and Plan (1) Abdominal pain Status: Acute (2) Back pain Status: Acute (3) Diarrhea Status: Acute (4) Dizziness Status: Acute (5) Headache Status: Acute (6) Homeless single person Status: Acute (7) Hypoglycemia Status: Acute (8) Hypoglycemia Status: Acute (9) Hypoglycemia due to type 1 diabetes mellitus Status: Acute (10) Hypothermia Status: Acute (11) Nausea Status: Acute (12) Near syncope Status: Acute (13) Orthostatic hypotension Status: Acute (14) Prophylactic measure Status: Acute (15) Tachycardia Status: Acute (16) Uncontrolled diabetes mellitus Status: Acute (17) Uncontrolled type 1 diabetes mellitus Status: Acute (18) Diabetes Status: Chronic (19) Diabetic foot ulcer Status: Chronic (20) History of hypertension Status: Chronic (21) Hypertension Status: Chronic (22) Seizure Status: Suspected - Assessment and Plan (Free Text) Plan: Patient better. Continue Piperacillin Tazobactam. Continue long acting acting insulin glargine. Continue sliding-scale insulin. Continue supportive care.
[2017-09-30] MEDS: (Lantus) Insulin Glargine, Recombinant SC SCH (21:54)
[2017-10-01] MEDS: Piperacill/Tazo 3.375gm in Dex 3.375 GM/50 ML BAG IVPB SCH ×4 (00:51→18:56)
[2017-10-01] MEDS: Saccharomyces Boulardi 250 mg Cap PO SCH ×2 (11:00→18:57)
[2017-10-01] MEDS: Enoxaparin 30 mg Syringe SC SCH (11:00)
[2017-10-01] MEDS: (Novolog) Insulin Aspart, Recombinant 100 u/ml 10 ml vial SC SCH ×4 (11:32→22:15)
--- NOTE | 2017-10-01 13:14 | CP.PCM.PN ---
Subjective - Date & Time of Evaluation Date of Evaluation: 10/01/17 Time of Evaluation: 12:05 - Subjective Subjective: Podiatry Patient seen along with resident Dr Ponce. Patient was resting in bed. He is awaiting placement in a rehab center. The grafts are in place and the bandaging has not bee disturbed. To continue hospital orders while he is still here. Objective - Vital Signs/Intake and Output Vital Signs (last 24 hours): Temp Pulse Resp BP Pulse Ox 98.1 F 92 H 20 152/92 H 95 10/01/17 08:10 10/01/17 11:33 10/01/17 08:10 10/01/17 11:33 10/01/17 08:10 - Medications Medications: Current Medications Acetaminophen (Tylenol 325mg Tab) 650 mg PO Q6 PRN PRN Reason: Pain, Mild (1-3) Last Admin: 09/30/17 19:33 Dose: 650 mg Amlodipine Besylate (Norvasc) 10 mg PO DAILY [facility] Last Admin: 10/01/17 11:00 Dose: 10 mg Enalapril Maleate (Vasotec) 10 mg PO DAILY [facility] Last Admin: 10/01/17 11:00 Dose: 10 mg Enoxaparin Sodium (Lovenox) 30 mg SC DAILY [facility] Last Admin: 10/01/17 11:00 Dose: 30 mg Piperacillin Sod/Tazobactam Sod (Zosyn 3.375 Gm Iv Premix) 3.375 gm in 50 mls @ 100 mls/hr IVPB Q6H [facility] Last Admin: 10/01/17 12:40 Dose: 100 mls/hr Insulin Aspart (Novolog) 0 unit SC ACHS [facility] PRN Reason: Protocol Last Admin: 10/01/17 13:04 Dose: 10 unit Insulin Glargine (Lantus) 14 unit SC HS [facility] Last Admin: 09/30/17 21:54 Dose: 14 units Saccharomyces Boulardii (Florastor) 250 mg PO BID [facility] Last Admin: 10/01/17 11:00 Dose: 250 mg - Labs Labs: 09/26/17 07:29 09/26/17 07:29 PT 10.7 SECONDS (9.7-12.2) 09/24/17 05:17 INR 1.0 09/24/17 05:17 APTT 28 SECONDS (21-34) 09/24/17 05:17
--- NOTE | 2017-10-01 16:52 | CP.PCM.PN ---
Subjective - Date & Time of Evaluation Date of Evaluation: 10/01/17 Time of Evaluation: 08:00 - Subjective Subjective: afeb orders renewed IV rx in progress Objective - Vital Signs/Intake and Output Vital Signs (last 24 hours): Temp Pulse Resp BP Pulse Ox 98 F 101 H 20 102/66 96 10/01/17 16:00 10/01/17 16:00 10/01/17 16:00 10/01/17 16:00 10/01/17 16:00 - Medications Medications: Current Medications Acetaminophen (Tylenol 325mg Tab) 650 mg PO Q6 PRN PRN Reason: Pain, Mild (1-3) Last Admin: 09/30/17 19:33 Dose: 650 mg Amlodipine Besylate (Norvasc) 10 mg PO DAILY [facility] Last Admin: 10/01/17 11:00 Dose: 10 mg Enalapril Maleate (Vasotec) 10 mg PO DAILY [facility] Last Admin: 10/01/17 11:00 Dose: 10 mg Enoxaparin Sodium (Lovenox) 30 mg SC DAILY [facility] Last Admin: 10/01/17 11:00 Dose: 30 mg Piperacillin Sod/Tazobactam Sod (Zosyn 3.375 Gm Iv Premix) 3.375 gm in 50 mls @ 100 mls/hr IVPB Q6H [facility] Last Admin: 10/01/17 12:40 Dose: 100 mls/hr Insulin Aspart (Novolog) 0 unit SC ACHS [facility] PRN Reason: Protocol Last Admin: 10/01/17 13:04 Dose: 10 unit Insulin Glargine (Lantus) 14 unit SC HS [facility] Last Admin: 09/30/17 21:54 Dose: 14 units Saccharomyces Boulardii (Florastor) 250 mg PO BID [facility] Last Admin: 10/01/17 11:00 Dose: 250 mg - Labs Labs: 09/26/17 07:29 09/26/17 07:29 PT 10.7 SECONDS (9.7-12.2) 09/24/17 05:17 INR 1.0 09/24/17 05:17 APTT 28 SECONDS (21-34) 09/24/17 05:17 - Constitutional Appears: Non-toxic, Chronically Ill - Head Exam Head Exam: NORMOCEPHALIC - Eye Exam Eye Exam: PERRL - ENT Exam ENT Exam: Mucous Membranes Dry - Neck Exam Neck Exam: absent: Lymphadenopathy - Respiratory Exam Respiratory Exam: Decreased Breath Sounds - Cardiovascular Exam Cardiovascular Exam: REGULAR RHYTHM - GI/Abdominal Exam GI & Abdominal Exam: Distended - Rectal Exam Rectal Exam: Deferred Assessment and Plan (1) Hypoglycemia Status: Acute (2) Diabetic foot ulcer Status: Chronic
--- NOTE | 2017-10-01 20:07 | CP.PCM.PN ---
Subjective - Date & Time of Evaluation Date of Evaluation: 10/01/17 Time of Evaluation: 08:20 - Subjective Subjective: clinically same Objective - Vital Signs/Intake and Output Vital Signs (last 24 hours): Temp Pulse Resp BP Pulse Ox 98 F 101 H 20 102/66 96 10/01/17 16:00 10/01/17 16:00 10/01/17 16:00 10/01/17 16:00 10/01/17 16:00 - Medications Medications: Current Medications Acetaminophen (Tylenol 325mg Tab) 650 mg PO Q6 PRN PRN Reason: Pain, Mild (1-3) Last Admin: 09/30/17 19:33 Dose: 650 mg Amlodipine Besylate (Norvasc) 10 mg PO DAILY [facility] Last Admin: 10/01/17 11:00 Dose: 10 mg Enalapril Maleate (Vasotec) 10 mg PO DAILY [facility] Last Admin: 10/01/17 11:00 Dose: 10 mg Enoxaparin Sodium (Lovenox) 30 mg SC DAILY [facility] Last Admin: 10/01/17 11:00 Dose: 30 mg Piperacillin Sod/Tazobactam Sod (Zosyn 3.375 Gm Iv Premix) 3.375 gm in 50 mls @ 100 mls/hr IVPB Q6H [facility] Last Admin: 10/01/17 18:56 Dose: 100 mls/hr Insulin Aspart (Novolog) 0 unit SC ACHS [facility] PRN Reason: Protocol Last Admin: 10/01/17 18:57 Dose: 4 unit Insulin Glargine (Lantus) 14 unit SC HS [facility] Last Admin: 09/30/17 21:54 Dose: 14 units Saccharomyces Boulardii (Florastor) 250 mg PO BID [facility] Last Admin: 10/01/17 18:57 Dose: 250 mg - Labs Labs: 09/26/17 07:29 09/26/17 07:29 PT 10.7 SECONDS (9.7-12.2) 09/24/17 05:17 INR 1.0 09/24/17 05:17 APTT 28 SECONDS (21-34) 09/24/17 05:17 - Constitutional Appears: Well - Head Exam Head Exam: ATRAUMATIC, NORMAL INSPECTION, NORMOCEPHALIC - Eye Exam Eye Exam: EOMI, Normal appearance, PERRL Pupil Exam: NORMAL ACCOMODATION, PERRL - ENT Exam ENT Exam: Mucous Membranes Moist, Normal Exam - Neck Exam Neck Exam: Full ROM, Normal Inspection. absent: Lymphadenopathy - Respiratory Exam Respiratory Exam: Decreased Breath Sounds - Cardiovascular Exam Cardiovascular Exam: REGULAR RHYTHM, +S1, +S2 - GI/Abdominal Exam GI & Abdominal Exam: Soft, Diminished Bowel Sounds - Rectal Exam Rectal Exam: Deferred Assessment and Plan (1) Abdominal pain Status: Acute (2) Back pain Status: Acute (3) Diarrhea Status: Acute (4) Dizziness Status: Acute (5) Headache Status: Acute (6) Homeless single person Status: Acute (7) Hypoglycemia Status: Acute (8) Hypoglycemia Status: Acute (9) Hypoglycemia due to type 1 diabetes mellitus Status: Acute (10) Hypothermia Status: Acute (11) Nausea Status: Acute (12) Near syncope Status: Acute (13) Orthostatic hypotension Status: Acute (14) Prophylactic measure Status: Acute (15) Tachycardia Status: Acute (16) Uncontrolled diabetes mellitus Status: Acute (17) Uncontrolled type 1 diabetes mellitus Status: Acute (18) Diabetes Status: Chronic (19) Diabetic foot ulcer Status: Chronic (20) History of hypertension Status: Chronic (21) Hypertension Status: Chronic (22) Seizure Status: Suspected - Assessment and Plan (Free Text) Plan: Patient better. Continue Piperacillin Tazobactam. Continue long acting acting insulin glargine. Continue sliding-scale insulin. Continue supportive care.
[2017-10-01] MEDS: (Lantus) Insulin Glargine, Recombinant SC SCH (22:30)
[2017-10-02] MEDS: Piperacill/Tazo 3.375gm in Dex 3.375 GM/50 ML BAG IVPB SCH ×4 (01:00→18:31)
[2017-10-02 07:17] LABS: BASO # 0.1 K/uL (0.0-0.2); BASO % 1.3 % (0.0-2.0); EOS # 0.1 K/uL (0.0-0.7); EOS % 3.1 % (0.0-4.0); HEMATOCRIT 28.5 % (35.0-51.0); LYMPH # 1.7 K/uL (1.0-4.3); MEAN CELL VOLUME 84.9 fL (80.0-94.0); MEAN CORPUSCULAR HEMOGLOBIN 28.1 pg (27.0-31.0); MEAN CORPUSCULAR HGB CONC 33.1 g/dL (33.0-37.0); MEAN PLATELET VOLUME 8.9 fL (7.2-11.7); MONO # 0.5 K/uL (0.0-0.8); MONO % 10.1 % (0.0-10.0); RED CELL DISTRIBUTION WIDTH 16.4 % (11.5-14.5); WHITE BLOOD COUNT 4.5 K/uL (4.8-10.8)
[2017-10-02 07:38] LABS: POTASSIUM 4.3 mmol/L (3.6-5.2)
[2017-10-02 07:40] LABS: BILIRUBIN,TOTAL 0.5 mg/dL (0.2-1.3); TOTAL PROTEIN 7.6 g/dL (6.3-8.3)
[2017-10-02 07:41] LABS: CALCIUM 8.9 mg/dl (8.6-10.4)
[2017-10-02 07:43] VITALS: RESP 20
[2017-10-02] MEDS: Saccharomyces Boulardi 250 mg Cap PO SCH ×2 (10:45→18:31)
[2017-10-02] MEDS: Enoxaparin 30 mg Syringe SC SCH (10:45)
[2017-10-02] MEDS: (Novolog) Insulin Aspart, Recombinant 100 u/ml 10 ml vial SC SCH ×3 (10:45→16:59)
--- NOTE | 2017-10-02 14:21 | CP.PCM.PN ---
Subjective - Date & Time of Evaluation Date of Evaluation: 10/02/17 Time of Evaluation: 14:20 - Subjective Subjective: PT SEEN AND EXAMINED TODAY, RESP EASY AND UNLABORED, NAD Objective - Vital Signs/Intake and Output Vital Signs (last 24 hours): Temp Pulse Resp BP Pulse Ox 98 F 98 H 20 135/90 96 10/02/17 07:42 10/02/17 10:45 10/02/17 07:42 10/02/17 10:45 10/02/17 07:42 Intake and Output: 10/02/17 10/02/17 06:59 18:59 Intake Total 940 Output Total 550 Balance 390 - Medications Medications: Current Medications Acetaminophen (Tylenol 325mg Tab) 650 mg PO Q6 PRN PRN Reason: Pain, Mild (1-3) Last Admin: 10/02/17 06:33 Dose: 650 mg Amlodipine Besylate (Norvasc) 10 mg PO DAILY [facility] Last Admin: 10/02/17 10:45 Dose: 10 mg Enalapril Maleate (Vasotec) 10 mg PO DAILY [facility] Last Admin: 10/02/17 10:45 Dose: 10 mg Piperacillin Sod/Tazobactam Sod (Zosyn 3.375 Gm Iv Premix) 3.375 gm in 50 mls @ 100 mls/hr IVPB Q6H [facility] Last Admin: 10/02/17 06:28 Dose: 100 mls/hr Insulin Aspart (Novolog) 0 unit SC ACHS [facility] PRN Reason: Protocol Last Admin: 10/02/17 10:45 Dose: 4 unit Insulin Glargine (Lantus) 14 unit SC HS [facility] Last Admin: 10/01/17 22:30 Dose: 14 units Saccharomyces Boulardii (Florastor) 250 mg PO BID [facility] Last Admin: 10/02/17 10:45 Dose: 250 mg - Labs Labs: 10/02/17 07:06 10/02/17 07:06 PT 10.7 SECONDS (9.7-12.2) 09/24/17 05:17 INR 1.0 09/24/17 05:17 APTT 28 SECONDS (21-34) 09/24/17 05:17 Assessment and Plan - Assessment and Plan (Free Text) Plan: 27 Y/O MALE WITH PMHX HTN, DM ADMITTED FOR HYPOGLYCEMIA NON-HEALING LEFT FOOT WOUND SEEN BY DR HERRERA AND DR FOSTER S/P LEFT LEG DEBRIDEMENT AND SKIN GRAFT WITH DR FOSTER PT WILL BE TRANSFERRED TO [facility] FOR FURTHER TREATMENT - IV ABX F/U WITH [facility] EVERY WEEK, F/U WITH DR FOSTER IN THE OFFICE
--- NOTE | 2017-10-02 14:59 | CP.PCM.PN ---
Subjective - Date & Time of Evaluation Date of Evaluation: 10/02/17 Time of Evaluation: 08:00 - Subjective Subjective: clinically same Objective - Vital Signs/Intake and Output Vital Signs (last 24 hours): Temp Pulse Resp BP Pulse Ox 98 F 98 H 20 135/90 96 10/02/17 07:42 10/02/17 10:45 10/02/17 07:42 10/02/17 10:45 10/02/17 07:42 Intake and Output: 10/02/17 10/02/17 06:59 18:59 Intake Total 940 Output Total 550 Balance 390 - Medications Medications: Current Medications Acetaminophen (Tylenol 325mg Tab) 650 mg PO Q6 PRN PRN Reason: Pain, Mild (1-3) Last Admin: 10/02/17 06:33 Dose: 650 mg Amlodipine Besylate (Norvasc) 10 mg PO DAILY [facility] Last Admin: 10/02/17 10:45 Dose: 10 mg Enalapril Maleate (Vasotec) 10 mg PO DAILY [facility] Last Admin: 10/02/17 10:45 Dose: 10 mg Piperacillin Sod/Tazobactam Sod (Zosyn 3.375 Gm Iv Premix) 3.375 gm in 50 mls @ 100 mls/hr IVPB Q6H [facility] Last Admin: 10/02/17 14:24 Dose: 100 mls/hr Insulin Aspart (Novolog) 0 unit SC ACHS [facility] PRN Reason: Protocol Last Admin: 10/02/17 14:24 Dose: 12 unit Insulin Glargine (Lantus) 14 unit SC HS [facility] Last Admin: 10/01/17 22:30 Dose: 14 units Saccharomyces Boulardii (Florastor) 250 mg PO BID [facility] Last Admin: 10/02/17 10:45 Dose: 250 mg - Labs Labs: 10/02/17 07:06 10/02/17 07:06 PT 10.7 SECONDS (9.7-12.2) 09/24/17 05:17 INR 1.0 09/24/17 05:17 APTT 28 SECONDS (21-34) 09/24/17 05:17 - Constitutional Appears: Well - Head Exam Head Exam: ATRAUMATIC, NORMAL INSPECTION, NORMOCEPHALIC - Eye Exam Eye Exam: EOMI, Normal appearance, PERRL Pupil Exam: NORMAL ACCOMODATION, PERRL - ENT Exam ENT Exam: Mucous Membranes Moist, Normal Exam - Neck Exam Neck Exam: Full ROM, Normal Inspection. absent: Lymphadenopathy - Respiratory Exam Respiratory Exam: Decreased Breath Sounds - Cardiovascular Exam Cardiovascular Exam: REGULAR RHYTHM, +S1, +S2 - GI/Abdominal Exam GI & Abdominal Exam: Soft, Diminished Bowel Sounds - Rectal Exam Rectal Exam: Deferred Assessment and Plan (1) Abdominal pain Status: Acute (2) Back pain Status: Acute (3) Diarrhea Status: Acute (4) Dizziness Status: Acute (5) Headache Status: Acute (6) Homeless single person Status: Acute (7) Hypoglycemia Status: Acute (8) Hypoglycemia Status: Acute (9) Hypoglycemia due to type 1 diabetes mellitus Status: Acute (10) Hypothermia Status: Acute (11) Nausea Status: Acute (12) Near syncope Status: Acute (13) Orthostatic hypotension Status: Acute (14) Prophylactic measure Status: Acute (15) Tachycardia Status: Acute (16) Uncontrolled diabetes mellitus Status: Acute (17) Uncontrolled type 1 diabetes mellitus Status: Acute (18) Diabetes Status: Chronic (19) Diabetic foot ulcer Status: Chronic (20) History of hypertension Status: Chronic (21) Hypertension Status: Chronic (22) Seizure Status: Suspected - Assessment and Plan (Free Text) Plan: Patient better. Continue Piperacillin Tazobactam. Continue long acting acting insulin glargine. Continue sliding-scale insulin. Continue supportive care.
--- NOTE | 2017-10-02 15:28 | CP.PCM.PN ---
Subjective - Date & Time of Evaluation Date of Evaluation: 10/02/17 Time of Evaluation: 03:05 - Subjective Subjective: Podiatry Patient seen resting in bed. He advised me that he is being transferred to a rehab facility today. I advised him to get transport to see Dr Myles next week to change the dressing which should be left intact due to grafts. He will be followed in the office setting. Objective - Vital Signs/Intake and Output Vital Signs (last 24 hours): Temp Pulse Resp BP Pulse Ox 98 F 98 H 20 135/90 96 10/02/17 07:42 10/02/17 10:45 10/02/17 07:42 10/02/17 10:45 10/02/17 07:42 Intake and Output: 10/02/17 10/02/17 06:59 18:59 Intake Total 940 Output Total 550 Balance 390 - Medications Medications: Current Medications Acetaminophen (Tylenol 325mg Tab) 650 mg PO Q6 PRN PRN Reason: Pain, Mild (1-3) Last Admin: 10/02/17 06:33 Dose: 650 mg Amlodipine Besylate (Norvasc) 10 mg PO DAILY [facility] Last Admin: 10/02/17 10:45 Dose: 10 mg Enalapril Maleate (Vasotec) 10 mg PO DAILY [facility] Last Admin: 10/02/17 10:45 Dose: 10 mg Piperacillin Sod/Tazobactam Sod (Zosyn 3.375 Gm Iv Premix) 3.375 gm in 50 mls @ 100 mls/hr IVPB Q6H [facility] Last Admin: 10/02/17 14:24 Dose: 100 mls/hr Insulin Aspart (Novolog) 0 unit SC ACHS [facility] PRN Reason: Protocol Last Admin: 10/02/17 14:24 Dose: 12 unit Insulin Glargine (Lantus) 14 unit SC HS [facility] Last Admin: 10/01/17 22:30 Dose: 14 units Saccharomyces Boulardii (Florastor) 250 mg PO BID [facility] Last Admin: 10/02/17 10:45 Dose: 250 mg - Labs Labs: 10/02/17 07:06 10/02/17 07:06 PT 10.7 SECONDS (9.7-12.2) 09/24/17 05:17 INR 1.0 09/24/17 05:17 APTT 28 SECONDS (21-34) 09/24/17 05:17
[2017-10-02 16:02] VITALS: BP 101/63; PULSE 102; TEMP 97.6; O2SAT 98
== END 2017-10-02 21:28 | DRG 287 ==
LOC: C.ER 07:23 → C.9E 10:31 → UNDOADMOB 10:31 → INTOOBSV 13:11 → OBSVTOIN 13:11 → C.6T 13:37 → C.9E 13:37 → C.6T 09-16 13:11 → OBSVTOIN 09-16 13:11 → C.6T 09-16 20:10 → C.5S 09-16 20:10
PROVIDERS: ADMIT Internal Medicine Nephrology; ATTEND Internal Medicine Nephrology
PROC: 02HV33Z Insertion of Infusion Device into Superior Vena Cava, Percutaneous Approach (ICD-10-PCS; 2017-09-22)
PROC: B518ZZA Fluoroscopy of Superior Vena Cava, Guidance (ICD-10-PCS; 2017-09-22)
PROC: 0HRNXK3 Replacement of Left Foot Skin with Nonautologous Tissue Substitute, Full Thickness, External Approach (ICD-10-PCS; 2017-09-24)
PROC: 0JBR0ZZ Excision of Left Foot Subcutaneous Tissue and Fascia, Open Approach (ICD-10-PCS; principal; 2017-09-24 12:30)
DX: E10.649 Type 1 diabetes mellitus with hypoglycemia without coma (principal); L97.529 Non-pressure chronic ulcer of other part of left foot with unspecified severity; E10.621 Type 1 diabetes mellitus with foot ulcer; R56.9 Unspecified convulsions; R32 Unspecified urinary incontinence; I10 Essential (primary) hypertension; D64.9 Anemia, unspecified; I95.1 Orthostatic hypotension; R68.0 Hypothermia, not associated with low environmental temperature; Z79.4 Long term (current) use of insulin; Z59.0 Homelessness; Z87.81 Personal history of (healed) traumatic fracture

== ENCOUNTER 2018-01-06 20:27 | Emergency (ER) | payer SELFPAY ==
[2018-01-06 20:41] VITALS: O2SAT 100
[2018-01-06 21:05] LABS: BASO # 0.1 K/uL (0.0-0.2); BASO % 0.8 % (0.0-2.0); EOS # 0.1 K/uL (0.0-0.7); EOS % 1.7 % (0.0-4.0); HEMOGLOBIN 9.8 g/dL (12.0-18.0); LYMPH # 1.3 K/uL (1.0-4.3); LYMPH % 19.6 % (20.0-40.0); MEAN CELL VOLUME 85.3 fL (80.0-94.0); MEAN CORPUSCULAR HEMOGLOBIN 29.4 pg (27.0-31.0); MEAN CORPUSCULAR HGB CONC 34.4 g/dL (33.0-37.0); MEAN PLATELET VOLUME 8.6 fL (7.2-11.7); MONO # 0.5 K/uL (0.0-0.8); MONO % 7.2 % (0.0-10.0); NEUT # 4.7 K/uL (1.8-7.0); NEUT % 70.7 % (50.0-75.0); RBC 3.35 Mil/uL (4.40-5.90); RED CELL DISTRIBUTION WIDTH 13.5 % (11.5-14.5); WHITE BLOOD COUNT 6.7 K/uL (4.8-10.8)
[2018-01-06 21:16] LABS: ALBUMIN 3.9 g/dL (3.5-5.0); ALT/SGPT 40 U/L (21-72); AST/SGOT 32 U/L (17-59); BLOOD UREA NITROGEN 27 mg/dL (9-20); CALCIUM 9.6 mg/dl (8.6-10.4); GFR AFRICAN-AMERICAN > 60; GFR NON-AFRICAN AMERICAN > 60; LIPASE 233 U/L (23-300)
[2018-01-06] MEDS ORDERED: Sodium Chloride 0.9% 1,000 ML IV ONE ×2 (22:01→23:02)
[2018-01-06 23:09] LABS: URINE BACTERIA RARE (<OCC); URINE BILIRUBIN NEGATIVE (NEGATIVE); URINE BLOOD 1+ (NEGATIVE); URINE CLARITY Clear (Clear); URINE COLOR Colorless (YELLOW); URINE GLUCOSE (UA) 3+ mg/dL (Normal); URINE LEUKOCYTE ESTERASE NEG Leu/uL (Negative); URINE NITRATE NEGATIVE (NEGATIVE); URINE PROTEIN 2+ mg/dL (NEGATIVE); URINE UROBILINOGEN NORMAL mg/dL (0.2-1.0)
--- NOTE | 2018-01-07 00:12 | C.PDOC ---
Time Seen by Provider: 01/06/18 20:47 Chief Complaint (Nursing): Abdominal Pain History Per: Patient Onset/Duration Of Symptoms: Days (4) Current Symptoms Are (Timing): Still Present Severity: Moderate Location Of Pain/Discomfort: Epigastric Quality Of Discomfort: Unable To Describe, "Pain" Associated Symptoms: Nausea, Vomiting, Diarrhea Exacerbating Factors: Food Alleviating Factors: None Additional History Per: Prior Records Past Medical History Reviewed: Historical Data, Nursing Documentation, Vital Signs Vital Signs: Last Vital Signs Temp 99.1 F 01/06/18 20:36 Pulse 104 H 01/06/18 20:36 Resp 20 01/06/18 20:36 BP 147/101 H 01/06/18 20:36 Pulse Ox 100 01/07/18 00:31 - Medical History PMH: Diabetes (Type 1), Fractures (R shoulder 2014), HTN Other PMH: Osteomyelitis of left foot - [facility] Procedures EXCISION OF L FOOT SUBCU/FASCIA, OPEN APPROACH (09/16/17) FLUOROSCOPY OF SUPERIOR VENA CAVA, GUIDANCE (09/16/17) INSERTION OF INFUSION DEV INTO SUP VENA CAVA, PERC APPROACH (09/16/17) REPLACE L FOOT SKIN W NONAUT SUB, FULL THICK, 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 Constitutional: Negative for: Fever Cardiovascular: Negative for: Chest Pain Respiratory: Negative for: Shortness of Breath Gastrointestinal: Positive for: Nausea, Vomiting, Abdominal Pain, Diarrhea. Negative for: Melena, Hematochezia, Hematemesis Musculoskeletal: Negative for: Neck Pain Neurological: Negative for: Weakness, Numbness Physical Exam - Physical Exam Appears: No Acute Distress, Chronically Ill Skin: Normal Color, Warm, Dry Head: Atraumatic, Normacephalic Eye(s): bilateral: Normal Inspection, PERRL, EOMI Neck: Normal ROM, Supple Cardiovascular: Rhythm Regular Respiratory: Normal Breath Sounds, No Accessory Muscle Use Gastrointestinal/Abdominal: Soft, Tenderness (nonspecific), Distention, No Guarding, No Rebound Back: No CVA Tenderness Extremity: Normal ROM, Other (Left foot with chronic ulcer) Neurological/Psych: Oriented x3, Normal Motor, Normal Sensation ED Course And Treatment - Laboratory Results Result Diagrams: 01/06/18 20:56 01/06/18 20:56 Interpretation Of Abnormal: Hyperglycemia. No DKA. O2 Sat by Pulse Oximetry: 100 Pulse Ox Interpretation: Normal Progress - Interventions Interventions:: Observation, Intravenous fluid - Medications Administered Intravenous: Antiemetic, H-2 nevin - Data Reviewed Data Reviewed: Lab, Old records - Patient Status Patient status: Partially improved Disposition - Disposition Disposition Time: 01:00 Condition: FAIR - Clinical Impression Clinical Impression: Nausea vomiting and diarrhea, Abdominal pain, Diabetes type I Physician Patient Turnover Patient Signed Over To: Varsha Florentino Handoff Comments: to f/up CT scan of abd/pelv and reassess pt.
[2018-01-07] MEDS ORDERED: Sodium Chloride 0.9% 1,000 ML ONE ×2 (00:13→00:17)
[2018-01-07] MEDS ORDERED: Insulin Detemir 100 units/ml Vial (Levemir) SC STA (00:21)
[2018-01-07] MEDS ORDERED: (Novolog) Insulin Aspart, Recombinant 100 u/ml 10 ml vial SC STA (00:22)
[2018-01-07] MEDS ORDERED: Iohexol 240 (50 ml) PO STA (00:22)
[2018-01-07] MEDS ORDERED: (Novolog) Insulin Aspart, Recombinant 100 u/ml 10 ml vial ONE (00:36)
[2018-01-07] MEDS ORDERED: Iohexol 240 (50 ml) ONE (00:36)
[2018-01-07] MEDS ORDERED: Morphine 4 MG/ML VIAL ONE (02:52)
--- NOTE | 2018-01-07 03:43 | CT ---
EXAM: CT Abdomen and Pelvis With Intravenous Contrast CLINICAL HISTORY: 27 years old, male; Pain; Abdominal pain; Patient HX: 09-17-17; Additional info: Abd pain, n/v/d TECHNIQUE: Axial computed tomography images of the abdomen and pelvis with intravenous contrast. All CT scans at this facility use one or more dose reduction techniques, viz.: automated exposure control; ma/kV adjustment per patient size (including targeted exams where dose is matched to indication; i.e. head); or iterative reconstruction technique. Coronal and sagittal reformatted images were created and reviewed. CONTRAST: 240 mL of oral administered intravenously. COMPARISON: CT - ANGIOGRAPHY ABD ILEOFEM RUNOFF 2017-09-18 13:05 FINDINGS: Limitations: Lack of intravenous contrast. Lower thorax: No acute findings. ABDOMEN: Liver: Unremarkable. No mass. Gallbladder and bile ducts: No calcified stones. No ductal dilation. Pancreas: No ductal dilation. No mass. Spleen: No splenomegaly. Adrenals: No mass. Kidneys and ureters: No renal calculi. No hydronephrosis. Stomach and bowel: No definite mural thickening. No obstruction. Appendix: Normal caliber. No inflammation. PELVIS: Bladder: Unremarkable. Reproductive: Unremarkable as visualized. ABDOMEN and PELVIS: Intraperitoneal space: No significant fluid collection. No free air. Bones/joints: No acute fracture. Soft tissues: Minimal gynecomastia. Tiny umbilical hernia containing fat. Mild skin thickening along umbilicus. Vasculature: Unremarkable. No aneurysm. Lymph nodes: No pathologically enlarged lymph nodes. IMPRESSION: 1. No definite acute intraabdominal abnormality. 2. Incidental/non-acute findings are described above.
[2018-01-07 06:23] VITALS: BP 159/91; PULSE 84; RESP 20; TEMP 98.7
== END 2018-01-07 06:41 | disposition home or self-care (01) ==
LOC: C.ER 20:27
DX: R19.7 Diarrhea, unspecified (principal); R10.9 Unspecified abdominal pain; R11.2 Nausea with vomiting, unspecified; E10.9 Type 1 diabetes mellitus without complications; Z79.4 Long term (current) use of insulin; I10 Essential (primary) hypertension
CPT/HCPCS: 74176; 80053; 81001; 82948; 83690; 85025; 96361; 96374; 96375; 99285; J2270; J2405; J7040; Q9966

== ENCOUNTER 2018-01-10 03:21 | Emergency (ER) | payer SELFPAY ==
--- NOTE | 2018-01-10 04:55 | C.PDOC ---
History Of Present Illness 27 year old male with Hx of chronic left foot ulcer presents to the ED c/o left foot ulcer. Patient states he is homeless and walks around a lot with a throbbing sensation. Patient denies any trauma, fall, injury, weakness, numbness , fever, nausea, vomit. (Mae Narvaez) History Per: Patient History/Exam Limitations: no limitations Onset/Duration Of Symptoms: Days Current Symptoms Are (Timing): Still Present Recent travel outside of the [place]: No Additional History Per: Patient - Ankle/Foot Description Of Injury: Other Time Seen by Provider: 01/10/18 03:48 Chief Complaint (Nursing): Lower Extremity Problem/Injury Past Medical History Reviewed: Historical Data, Nursing Documentation, Vital Signs - Medical History PMH: Diabetes (Type 1), Fractures (R shoulder 2015), HTN Surgical History: No Surg Hx Family History: States: Diabetes (Grandmother on Fathers side) - Social History Hx Tobacco Use: No Hx Alcohol Use: No Hx Substance Use: Yes (marijuana) - Immunization History Hx Tetanus Toxoid Vaccination: Yes Hx Influenza Vaccination: Yes Hx Pneumococcal Vaccination: No Vital Signs: Last Vital Signs Temp 98 F 01/10/18 06:06 Pulse 94 H 01/10/18 06:06 Resp 20 01/10/18 06:06 BP 158/100 H 01/10/18 06:06 Pulse Ox 97 01/10/18 06:06 - [facility] Procedures EXCISION OF L FOOT SUBCU/FASCIA, OPEN APPROACH (09/16/17) FLUOROSCOPY OF SUPERIOR VENA CAVA, GUIDANCE (09/16/17) INSERTION OF INFUSION DEV INTO SUP VENA CAVA, PERC APPROACH (09/16/17) REPLACE L FOOT SKIN W NONAUT SUB, 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 THICK, 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) Review Of Systems Constitutional: Negative for: Fever, Chills Cardiovascular: Negative for: Chest Pain Respiratory: Negative for: Cough, Shortness of Breath Gastrointestinal: Negative for: Nausea, Vomiting, Abdominal Pain Musculoskeletal: Positive for: Foot Pain Skin: Negative for: Rash Neurological: Negative for: Weakness, Numbness Physical Exam - Physical Exam Appears: Non-toxic, No Acute Distress Skin: Normal Color, Warm, Dry Head: Atraumatic, Normacephalic Eye(s): bilateral: Normal Inspection Extremity: Normal ROM, No Tenderness, No Calf Tenderness, Capillary Refill (< 2 seconds), No Swelling, Other (healing left foot ulcer dorsal aspect, healing abrasion with dry scab to the posterior left ankle. Chronic hyperpigmented skin changes to left lower leg and foot, no warmth, no fluctuance, diffuse onychomycosisleft toes) Neurological/Psych: Oriented x3, Normal Speech, Normal Cognition ED Course And Treatment O2 Sat by Pulse Oximetry: 99 (On RA) Pulse Ox Interpretation: Normal Progress Note: Patient's Wounds were cleaned with saline and bacitracin was applied along with a new dressing. Advised leg elevation, pain meds and clinic follow up. Pt is fully ambulatory in ED Disposition - Disposition Disposition Time: 05:52 - Disposition Referrals: Podiatry Clinic [Outside] [facility] [Outside] Disposition: HOME/ ROUTINE Condition: STABLE Additional Instructions: Leg elevation Soak foot to clean wound/ Apply bacitracin oint Return to ER if worse Instructions: Diabetic Foot Ulcer (DC), Wound Care (DC) Forms: [employer] ([employer]) - Clinical Impression Clinical Impression: Diabetic foot ulcer, PVD (peripheral vascular disease) - PA / PLANT DIRECTOR / Resident Statement MD/DO has reviewed & agrees with the documentation as recorded. - Scribe Statement The provider has reviewed the documentation as recorded by the Scribe - Scribe Statement Wilfrido Amaya All medical record entries made by the Scribe were at my direction and personally dictated by me. I have reviewed the chart and agree that the record accurately reflects my personal performance of the history, physical exam, medical decision making, and the department course for this patient. I have also personally directed, reviewed, and agree with the discharge instructions and disposition. (Mae Narvaez)
[2018-01-10 06:07] VITALS: BP 158/100; PULSE 94; RESP 20; TEMP 98; O2SAT 97
== END 2018-01-10 06:25 | disposition home or self-care (01) ==
LOC: C.ER 03:21
DX: E10.621 Type 1 diabetes mellitus with foot ulcer (principal); L97.529 Non-pressure chronic ulcer of other part of left foot with unspecified severity; E10.51 Type 1 diabetes mellitus with diabetic peripheral angiopathy without gangrene

== ENCOUNTER 2018-02-13 20:02 | Emergency (ER) | payer SELFPAY ==
[2018-02-13 20:24] VITALS: BP 130/77; PULSE 68; RESP 14; TEMP 97.9; O2SAT 97
--- NOTE | 2018-02-13 20:46 | C.PDOC ---
History Of Present Illness Patient asking to check his sugar, he is diabetic and homeless. He also states he has not eaten much today and is hungry. He complains of mild frontal headache , likely from not eating he states. Denies any fever, chills, abdominal pain, injury or other complaints. Time Seen by Provider: 02/13/18 20:35 Chief Complaint (Nursing): Medical Clearance History Per: Patient History/Exam Limitations: no limitations Recent travel outside of the [place]: No Past Medical History Reviewed: Historical Data, Nursing Documentation, Vital Signs Vital Signs: Last Vital Signs Temp 97.9 F 02/13/18 20:21 Pulse 68 02/13/18 20:21 Resp 14 02/13/18 20:21 BP 130/77 02/13/18 20:21 Pulse Ox 97 02/13/18 20:55 - Medical History PMH: Diabetes (Type 1), Fractures (R shoulder 2014), HTN - [facility] Procedures EXCISION OF L FOOT SUBCU/FASCIA, OPEN APPROACH (09/16/17) FLUOROSCOPY OF SUPERIOR VENA CAVA, GUIDANCE (09/16/17) INSERTION OF INFUSION DEV INTO SUP VENA CAVA, PERC APPROACH (09/16/17) REPLACE L FOOT SKIN W NONAUT SUB, 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, 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) Family History: States: Diabetes (Grandmother on Fathers side) - Social History Hx Tobacco Use: No Hx Alcohol Use: No Hx Substance Use: Yes (marijuana) - Immunization History Hx Tetanus Toxoid Vaccination: Yes Hx Influenza Vaccination: Yes Hx Pneumococcal Vaccination: No Review Of Systems Constitutional: Negative for: Fever, Chills Cardiovascular: Negative for: Chest Pain, Palpitations Respiratory: Negative for: Cough Gastrointestinal: Negative for: Nausea, Vomiting, Abdominal Pain Physical Exam - Physical Exam Appears: Non-toxic, Unkempt Skin: Normal Color, Warm, Dry Head: Atraumatic, Normacephalic Eye(s): bilateral: Normal Inspection Oral Mucosa: Moist Chest: Symmetrical, No Tenderness Cardiovascular: Rhythm Regular Respiratory: Normal Breath Sounds, No Rales, No Rhonchi, No Wheezing Gastrointestinal/Abdominal: Soft, No Tenderness Neurological/Psych: Oriented x3, Normal Speech ED Course And Treatment O2 Sat by Pulse Oximetry: 97 Medical Decision Making Medical Decision Making: Patient is homeless, looking for food and skilled nursing. Accucheck was 161. Patient provided with some food and beverage allowed to rest and then stable for discharge. He is not intoxicated. Disposition Counseled Patient/Family Regarding: Diagnosis, Need For Followup - Disposition Referrals: Radha Galvan MD [Staff Provider] - Disposition: HOME/ ROUTINE Disposition Time: 21:12 Condition: STABLE Additional Instructions: Follow up with the clinic in 2-5 days for further evaluation. Return to the emergency department at any time if symptoms persist or worsen. You may call [facility] for any assistance [phone]. Instructions: Headache, Adult (DC) Forms: [employer] (Cameroonian) - POA Present On Arrival: None - Clinical Impression Clinical Impression: Homeless single person, Hunger - PA / DATA WAREHOUSE ANALYST / Resident Statement MD/DO has reviewed & agrees with the documentation as recorded. - Scribe Statement The provider has reviewed the documentation as recorded by the Scribforeign Elmore All medical record entries made by the Scribforeign were at my direction and personally dictated by me. I have reviewed the chart and agree that the record accurately reflects my personal performance of the history, physical exam, medical decision making, and the department course for this patient. I have also personally directed, reviewed, and agree with the discharge instructions and disposition.
== END 2018-02-13 21:21 | disposition home or self-care (01) ==
LOC: C.ER 20:02
DX: Z59.0 Homelessness (principal); I10 Essential (primary) hypertension; E10.9 Type 1 diabetes mellitus without complications

== ENCOUNTER 2018-02-14 20:56 | Emergency (ER) | payer SELFPAY ==
[2018-02-14] MEDS ORDERED: Sodium Chloride 0.9% 1,000 ML IV ONE ×2 (21:36→23:25)
[2018-02-14] MEDS ORDERED: (Novolin R) Insulin Human Regular 100 units/ml vial IV ONE ×2 (21:37→23:25)
--- NOTE | 2018-02-14 21:37 | C.PDOC ---
History Of Present Illness 27 year old male with a Hx of IDDM presents to the ER due to concern that his blood sugar is elevated. Patient was seen in the ER last night and discharged after an hour or so, he states he used his last test stripe this morning and noticed his blood sugar was 200. Patient then went to his aunts house where he ate, drank, and slept, however, he reports waking up with chest and back discomfort which concerned him and prompted ER visit. Denies SOB, nausea, vomiting. or fever. Time Seen by Provider: 02/14/18 21:01 Chief Complaint (Nursing): Back Pain History Per: Patient History/Exam Limitations: no limitations Onset/Duration Of Symptoms: Hrs Current Symptoms Are (Timing): Still Present Quality Of Discomfort: Unable To Describe Previous Symptoms: None Associated Symptoms: None Recent travel outside of the [place]: No Past Medical History Reviewed: Historical Data, Nursing Documentation, Vital Signs Vital Signs: Last Vital Signs Temp 98.4 F 02/14/18 21:18 Pulse 104 H 02/14/18 21:18 Resp 20 02/14/18 21:18 BP 179/116 H 02/14/18 21:18 Pulse Ox 98 02/15/18 00:06 - Medical History PMH: Diabetes (Type 1), Fractures (R shoulder 2014), HTN - [facility] Procedures EXCISION OF L FOOT SUBCU/FASCIA, OPEN APPROACH (09/16/17) FLUOROSCOPY OF SUPERIOR VENA CAVA, GUIDANCE (09/16/17) INSERTION OF INFUSION DEV INTO SUP VENA CAVA, PERC APPROACH (09/16/17) REPLACE L FOOT SKIN W NONAUT SUB, 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, 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) Family History: States: Diabetes (Grandmother on Fathers side) - Social History Hx Tobacco Use: No Hx Alcohol Use: No Hx Substance Use: Yes (marijuana) - Immunization History Hx Tetanus Toxoid Vaccination: Yes Hx Influenza Vaccination: Yes Hx Pneumococcal Vaccination: No Review Of Systems Constitutional: Negative for: Fever, Chills Cardiovascular: Negative for: Palpitations Respiratory: Negative for: Cough, Shortness of Breath Gastrointestinal: Negative for: Nausea, Vomiting, Diarrhea Musculoskeletal: Positive for: Other (Chest/back discomfort) Physical Exam - Physical Exam Appears: Non-toxic, No Acute Distress, Other (Speaking in complete sentences, blood sugar 460) Skin: Normal Color, Warm, Dry Head: Atraumatic, Normacephalic Eye(s): bilateral: Normal Inspection Oral Mucosa: Moist Chest: Symmetrical, No Tenderness, Other (Blood pressure 197/116) Cardiovascular: Rhythm Regular Respiratory: Normal Breath Sounds, No Rales, No Rhonchi, No Wheezing Gastrointestinal/Abdominal: Soft, No Tenderness Neurological/Psych: Oriented x3, Normal Speech ED Course And Treatment - Laboratory Results Result Diagrams: 02/14/18 21:41 02/14/18 21:41 Lab Interpretation: Abnormal (Glucose 579, Hgb 8.9, BUN 22) ECG: Interpreted By Me ECG Rhythm: Sinus Rhythm ECG Interpretation: Normal O2 Sat by Pulse Oximetry: 98 (Room air) Pulse Ox Interpretation: Normal Progress Note: EKG, blood work, and urinalysis ordered. Insulin and IV fluids ordered. Reevaluation Time: 23:29 Reassessment Condition: Unchanged (blood glucose continues to be over 400 despite IV fluids and Insulin. Additional medication ordered.) Disposition Counseled Patient/Family Regarding: Studies Performed, Diagnosis, Need For Followup, Rx Given - Disposition Referrals: [facility] at [facility] [Outside] Disposition Time: 00:33 Condition: IMPROVED Prescriptions: Insulin Aspart [Novolog] 7 unit SC TIDAC #1 vial Insulin Detemir [Levemir] 14 units SC BID #1 vial Instructions: Type 1 Diabetes Forms: [facility] (Polish) - Clinical Impression Clinical Impression: Uncontrolled type 1 diabetes mellitus - Scribe Statement The provider has reviewed the documentation as recorded by the Scribe Abhilahs Elmore All medical record entries made by the Scribe were at my direction and personally dictated by me. I have reviewed the chart and agree that the record accurately reflects my personal performance of the history, physical exam, medical decision making, and the department course for this patient. I have also personally directed, reviewed, and agree with the discharge instructions and disposition. Physician Patient Turnover Patient Signed Over To: Malgorzata Hawkins Handoff Comments: Homeless patient unable to return to the [facility] at this time. Pending AM discharge.
[2018-02-14 21:44] LABS: BASO # 0.1 K/uL (0.0-0.2); EOS # 0.1 K/uL (0.0-0.7); EOS % 1.5 % (0.0-4.0); HEMOGLOBIN 8.9 g/dL (12.0-18.0); LYMPH # 1.3 K/uL (1.0-4.3); LYMPH % 16.4 % (20.0-40.0); MEAN CELL VOLUME 85.4 fL (80.0-94.0); MEAN CORPUSCULAR HEMOGLOBIN 28.1 pg (27.0-31.0); MEAN CORPUSCULAR HGB CONC 32.9 g/dL (33.0-37.0); MEAN PLATELET VOLUME 8.1 fL (7.2-11.7); MONO # 0.5 K/uL (0.0-0.8); MONO % 6.6 % (0.0-10.0); NEUT % 74.5 % (50.0-75.0); RBC 3.17 Mil/uL (4.40-5.90); RED CELL DISTRIBUTION WIDTH 14.5 % (11.5-14.5); WHITE BLOOD COUNT 8.1 K/uL (4.8-10.8)
[2018-02-14] MEDS ORDERED: (Novolin R) Insulin Human Regular 100 units/ml vial ONE (21:48)
[2018-02-14] MEDS ORDERED: Sodium Chloride 0.9% 1,000 ML ONE (21:48)
[2018-02-14 22:14] LABS: ALB/GLOB RATIO 0.8 (1.0-2.1); ALBUMIN 3.6 g/dL (3.5-5.0); ALT/SGPT 44 U/L (21-72); AST/SGOT 33 U/L (17-59); BLOOD UREA NITROGEN 22 mg/dL (9-20); CALCIUM 8.9 mg/dl (8.6-10.4); GFR AFRICAN-AMERICAN > 60; GFR NON-AFRICAN AMERICAN > 60
[2018-02-14 22:14] LABS: URINE BILIRUBIN NEGATIVE (NEGATIVE); URINE BLOOD 2+ (NEGATIVE); URINE CLARITY Clear (Clear); URINE COLOR Colorless (YELLOW); URINE GLUCOSE (UA) 3+ mg/dL (Normal); URINE LEUKOCYTE ESTERASE NEG Leu/uL (Negative); URINE PROTEIN 2+ mg/dL (NEGATIVE); URINE UROBILINOGEN NORMAL mg/dL (0.2-1.0)
[2018-02-15] MEDS ORDERED: (Novolin R) Insulin Human Regular 100 units/ml vial ONE (00:02)
[2018-02-15 05:39] VITALS: BP 160/90; PULSE 84; RESP 14; TEMP 97.5; O2SAT 99
--- NOTE | 2018-02-16 13:05 | CARD ---
APPROVED REPORT EKG Measurement Heart [id number] <Conclusion> Normal sinus rhythm Normal ECG
== END 2018-02-15 05:40 | disposition home or self-care (01) ==
LOC: C.ER 20:56
DX: E10.65 Type 1 diabetes mellitus with hyperglycemia (principal); Z79.4 Long term (current) use of insulin
CPT/HCPCS: 80053; 81001; 82948; 83735; 84484; 85025; 93005; 96361; 96374; 96376; 99284; J7040

== ENCOUNTER 2018-05-11 14:48 | Inpatient (IN) | payer MEDICAID ==
--- NOTE | 2018-05-11 15:35 | C.PDOC ---
History Of Present Illness 27 y/o male presents to ED for complaints of fatigue, nausea, and dizziness associated with generalized weakness that began few days ago. Denies cough, dysuria, numbness or weakness. Patient states he does not have a PMD so he follows up with the clinic. Chief Complaint (Nursing): Weakness/Neurological Deficit History Per: Patient History/Exam Limitations: no limitations Onset/Duration Of Symptoms: Days Current Symptoms Are (Timing): Still Present Activity At Onset Of Symptoms: Standing, Walking Associated Symptoms Preceding Syncopal Episode: No Predromal Symptoms (Sudden Onset) Seizure Or Post-ictal Symptoms: None Fall Associated With With Symptoms: No Recent travel outside of the [place]: No - Symptoms Of CVA Associated Symptoms: denies: Impaired Speech, Seizure Activity, New Vision Deficit(Left), New Vision Deficit(Right), Decreased Ability To Walk, New Confusion Recent Aspirin Use: Unknown Current Coumadin Use?: Unknown Recent Head Trauma: No Past Medical History Reviewed: Historical Data, Nursing Documentation, Vital Signs Vital Signs: Last Vital Signs Temp 98.1 F 05/11/18 17:56 Pulse 100 H 05/11/18 17:56 Resp 18 05/11/18 17:56 BP 149/85 05/11/18 17:56 Pulse Ox 99 05/11/18 18:53 - Medical History PMH: Diabetes (Type 1), Fractures (R shoulder 2014), HTN Denies: Chronic Kidney Disease - [facility] Procedures EXCISION OF L FOOT SUBCU/FASCIA, OPEN APPROACH (09/16/17) FLUOROSCOPY OF SUPERIOR VENA CAVA, GUIDANCE (09/16/17) INSERTION OF INFUSION DEV INTO SUP VENA CAVA, PERC APPROACH (09/16/17) REPLACE L FOOT SKIN W NONAUT SUB, FULL THICK, OUTBOUND CALL CENTER REPRESENTATIVE (09/16/17) Family History: States: Diabetes (Grandmother on Fathers side) - Social History Hx Tobacco Use: No Hx Alcohol Use: No Hx Substance Use: Yes - Immunization History Hx Tetanus Toxoid Vaccination: Yes Hx Influenza Vaccination: Yes Hx Pneumococcal Vaccination: No Review Of Systems Constitutional: Positive for: Weakness, Other (Fatigue ). Negative for: Fever, Chills Cardiovascular: Negative for: Chest Pain Gastrointestinal: Positive for: Nausea. Negative for: Vomiting, Abdominal Pain , Diarrhea Genitourinary: Negative for: Dysuria Musculoskeletal: Positive for: Other Skin: Negative for: Rash Neurological: Positive for: Dizziness. Negative for: Weakness, Numbness Physical Exam - Physical Exam Appears: Non-toxic, No Acute Distress Skin: Warm, Dry Head: Atraumatic, Normacephalic Eye(s): bilateral: Normal Inspection, PERRL, EOMI Ear(s): Bilateral: Normal Nose: Normal, No Discharge Oral Mucosa: Moist Throat: Normal, No Erythema, No Exudate, No Drooling, Other (No signs of infection ) Neck: Supple Chest: Symmetrical, No Tenderness Cardiovascular: Rhythm Regular, No Murmur Respiratory: Normal Breath Sounds, No Decreased Breath Sounds, No Rales, No Rhonchi, No Wheezing Gastrointestinal/Abdominal: Soft, No Tenderness Extremity: Normal ROM, No Deformity Extremity: Bilateral: Atraumatic, Normal Color And Temperature, Normal ROM Neurological/Psych: Oriented x3, Normal Speech Gait: Steady ED Course And Treatment - Laboratory Results Result Diagrams: 05/11/18 16:18 05/11/18 16:18 O2 Sat by Pulse Oximetry: 99 (RA) Pulse Ox Interpretation: Normal - Other Rad CXR X-Ray: Viewed By Me, Read By Radiologist Interpretation: PROCEDURE: CHEST RADIOGRAPH, 1 VIEW. HISTORY: weakness. COMPARISON: 09/15/2017. FINDINGS: LUNGS: Clear. PLEURA: No pneumothorax or pleural fluid seen. CARDIOVASCULAR: Normal. OSSEOUS STRUCTURES: No significant abnormalities. VISUALIZED UPPER ABDOMEN: Normal. OTHER FINDINGS: None. IMPRESSION: No active disease. Progress Note: Administered Protonix, Zofran, and IV fluids. Ordered blood work , CXR, and urinalysis. 6:53PM : Spoke to Donaldo Cid for patient's admission for dehydration, nausea, decreased kidney function. Disposition - Disposition Disposition: HOSPITALIZED Disposition Time: 19:02 Condition: FAIR Forms: [facility] (Vietnamese) - Clinical Impression Clinical Impression: Hypoglycemia, Nausea, Dehydration, Abnormal kidney function - PA / TYPE INSPECTOR / Resident Statement MD/DO has reviewed & agrees with the documentation as recorded. - Scribe Statement The provider has reviewed the documentation as recorded by the Abdi Klein All medical record entries made by the Scribe were at my direction and personally dictated by me. I have reviewed the chart and agree that the record accurately reflects my personal performance of the history, physical exam, medical decision making, and the department course for this patient. I have also personally directed, reviewed, and agree with the discharge instructions and disposition. Decision To Admit - Pt Status Changed To: Hospital Disposition Of: Inpatient - Admit Certification Admit to Inpatient:: After my assessment, the patient will require hospitalization for at least two midnights. This is because of the severity of symptoms shown, intensity of services needed, and/or the medical risk in this patient being treated as an outpatient. - InPatient: Physician Admission Certification: I certify that this patient requires 2 or more midnights of care for the following reason:: Patient will need IV hydration for more than 2 days. - . Bed Request Type: Regular Patient Diagnosis: Hypoglycemia, Nausea, Dehydration, Abnormal kidney function
--- NOTE | 2018-05-11 15:38 | C.PDOC ---
Chief Complaint (Nursing): Weakness/Neurological Deficit Past Medical History Vital Signs: Last Vital Signs Temp 98.3 F 05/11/18 14:55 Pulse 91 H 05/11/18 14:55 Resp 17 05/11/18 14:55 BP 107/70 05/11/18 14:55 Pulse Ox 99 05/11/18 14:55 - Medical History PMH: Diabetes (Type 1), Fractures (R shoulder 2014), HTN Denies: Chronic Kidney Disease - [facility] Procedures EXCISION OF L FOOT SUBCU/FASCIA, OPEN APPROACH (09/16/17) FLUOROSCOPY OF SUPERIOR VENA CAVA, GUIDANCE (09/16/17) INSERTION OF INFUSION DEV INTO SUP VENA CAVA, PERC APPROACH (09/16/17) REPLACE L FOOT SKIN W NONAUT SUB, FULL THICK, PROPERTY OFFICER (09/16/17) Family History: States: Diabetes (Grandmother on Fathers side) - Social History Hx Tobacco Use: No Hx Alcohol Use: No Hx Substance Use: Yes - Immunization History Hx Tetanus Toxoid Vaccination: Yes Hx Influenza Vaccination: Yes Hx Pneumococcal Vaccination: No ED Course And Treatment O2 Sat by Pulse Oximetry: 99 Disposition - Disposition
[2018-05-11] MEDS ORDERED: Sodium Chloride 0.9% 1,000 ML IV STA ×2 (15:42→19:00)
[2018-05-11] MEDS ORDERED: Sodium Chloride 0.9% 1,000 ML ONE (16:06)
[2018-05-11 16:26] LABS: BASO # 0.1 K/uL (0.0-0.2); BASO % 0.8 % (0.0-2.0); EOS # 0.1 K/uL (0.0-0.7); EOS % 0.8 % (0.0-4.0); HEMOGLOBIN 9.7 g/dL (12.0-18.0); LYMPH # 1.3 K/uL (1.0-4.3); MEAN CORPUSCULAR HEMOGLOBIN 26.1 pg (27.0-31.0); MEAN CORPUSCULAR HGB CONC 32.5 g/dL (33.0-37.0); MEAN PLATELET VOLUME 8.3 fL (7.2-11.7); MONO # 0.5 K/uL (0.0-0.8); MONO % 6.8 % (0.0-10.0); NEUT # 4.8 K/uL (1.8-7.0); NEUT % 71.6 % (50.0-75.0); NRBC % 0.1 % (0.0-2.0); RBC 3.73 Mil/uL (4.40-5.90); RED CELL DISTRIBUTION WIDTH 15.9 % (11.5-14.5); WHITE BLOOD COUNT 6.7 K/uL (4.8-10.8)
[2018-05-11 16:28] LABS: MEAN CELL VOLUME 80.3 fL (80.0-94.0)
[2018-05-11 16:38] LABS: ALB/GLOB RATIO 0.9 (1.0-2.1); ALBUMIN 3.9 g/dL (3.5-5.0); CALCIUM 9.1 mg/dl (8.6-10.4)
--- NOTE | 2018-05-11 16:55 | RAD ---
PROCEDURE: CHEST RADIOGRAPH, 1 VIEW HISTORY: weakness COMPARISON: 09/15/2017 FINDINGS: LUNGS: Clear. PLEURA: No pneumothorax or pleural fluid seen. CARDIOVASCULAR: Normal. OSSEOUS STRUCTURES: No significant abnormalities. VISUALIZED UPPER ABDOMEN: Normal. OTHER FINDINGS: None. IMPRESSION: No active disease.
[2018-05-11 18:33] LABS: URINE BILIRUBIN NEGATIVE (NEGATIVE); URINE BLOOD 1+ (NEGATIVE); URINE CLARITY Clear (Clear); URINE COLOR Yellow (YELLOW); URINE GLUCOSE (UA) 3+ mg/dL (Normal); URINE LEUKOCYTE ESTERASE NEG Leu/uL (Negative); URINE PROTEIN 2+ mg/dL (NEGATIVE); URINE UROBILINOGEN NORMAL mg/dL (0.2-1.0)
[2018-05-11 18:41] LABS: BARBITURATES, UR NEGATIVE (NEGATIVE); BENZODIAZEPINES, UR NEGATIVE (NEGATIVE); OPIATES, UR NEGATIVE (NEGATIVE); PHENCYCLIDINE, UR NEGATIVE (NEGATIVE)
[2018-05-11] MEDS ORDERED: Albuterol-Ipratrop 3 mg / 0.5 (3 ml) UD ONE (19:38)
[2018-05-11] MEDS: Insulin Detemir 100 units/ml Vial (Levemir) SC SCH ×2 (21:45→22:00)
[2018-05-11] MEDS ORDERED: Insulin Detemir 100 units/ml Vial (Levemir) SC STA (23:15)
[2018-05-11] MEDS ORDERED: (Novolin R) Insulin Human Regular 100 units/ml vial SC ONE (23:16)
[2018-05-12 00:28] VITALS: RESP 20
[2018-05-12 11:07] LABS: BASO # 0.1 K/uL (0.0-0.2); EOS # 0.1 K/uL (0.0-0.7); EOS % 1.8 % (0.0-4.0); HEMOGLOBIN 10.6 g/dL (12.0-18.0); LYMPH # 1.7 K/uL (1.0-4.3); LYMPH % 29.8 % (20.0-40.0); MEAN CELL VOLUME 80.2 fL (80.0-94.0); MEAN CORPUSCULAR HEMOGLOBIN 26.6 pg (27.0-31.0); MEAN CORPUSCULAR HGB CONC 33.1 g/dL (33.0-37.0); MEAN PLATELET VOLUME 8.4 fL (7.2-11.7); MONO # 0.3 K/uL (0.0-0.8); MONO % 5.4 % (0.0-10.0); NEUT # 3.5 K/uL (1.8-7.0); RBC 3.99 Mil/uL (4.40-5.90); RED CELL DISTRIBUTION WIDTH 15.4 % (11.5-14.5); WHITE BLOOD COUNT 5.7 K/uL (4.8-10.8)
--- NOTE | 2018-05-12 11:12 | CP.PCM.HP ---
History of Present Illness - History of Present Illness History of Present Illness: pt came in feels weeke sweating and hypoglyceamia Present on Admission - Present on Admission Any Indicators Present on Admission: No History of Uncontrolled Diabetes: Yes Review of Systems - Review of Systems Systems not reviewed;Unavailable: Unstable Vital Signs - Constitutional Constitutional: Excessive Sweating, Weakness - EENT Eyes: As Per HPI Ears: As Per HPI Nose/Mouth/Throat: As Per HPI - Cardiovascular Cardiovascular: As Per HPI - Respiratory Respiratory: As Per HPI - Gastrointestinal Gastrointestinal: As Per HPI - Genitourinary Genitourinary: As Per HPI - Reproductive: Male Reproductive:Male: As Per HPI - Musculoskeletal Musculoskeletal: As Per HPI - Integumentary Integumentary: As Per HPI - Neurological Neurological: As Per HPI - Psychiatric Psychiatric: As Per HPI - Endocrine Endocrine: As Per HPI - Hematologic/Lymphatic Hematologic: As Per HPI Past Patient History - Infectious Disease Hx of Infectious Diseases: None - Tetanus Immunizations Tetanus Immunization: Unknown - Past Medical History & Family History Past Medical History?: Yes - Past Social History Smoking Status: Current Some Days Smoker - CARDIAC Hx Cardiac Disorders: Yes Hx Hypertension: Yes - PULMONARY Hx Respiratory Disorders: No - NEUROLOGICAL Hx Neurological Disorder: No - HEENT Hx HEENT Problems: No - RENAL Hx Chronic Kidney Disease: No - ENDOCRINE/METABOLIC Hx Endocrine Disorders: Yes (SEE COMMENT) Hx Diabetes Mellitus Type 1: Yes Other/Comment: HYPOGLYCEMIA - HEMATOLOGICAL/ONCOLOGICAL Hx Blood Disorders: No - INTEGUMENTARY Hx Dermatological Problems: Yes Hx Eczema: Yes - MUSCULOSKELETAL/RHEUMATOLOGICAL Hx Falls: No Hx Fractures: Yes (2014) - GASTROINTESTINAL Hx Gastrointestinal Disorders: No - GENITOURINARY/GYNECOLOGICAL Hx Genitourinary Disorders: No - PSYCHIATRIC Hx Substance Use: Yes (uses marijuana occasionally) - SURGICAL HISTORY Hx Surgeries: Yes (SEE COMMENT) Other/Comment: Left foot surgery with graft - ANESTHESIA Hx Anesthesia: Yes Hx Anesthesia Reactions: No Hx Malignant Hyperthermia: No Meds Allergies/Adverse Reactions: Allergies Allergy/AdvReac Type Severity Reaction Status Date / Time pollen extracts Allergy Intermediate ITCHING Verified 05/11/18 15:14 Physical Exam - Constitutional Appears: In Acute Distress - Head Exam Head Exam: ATRAUMATIC - Eye Exam Eye Exam: Normal appearance Pupil Exam: NORMAL ACCOMODATION - ENT Exam ENT Exam: Normal Exam - Neck Exam Neck exam: Positive for: Normal Inspection - Respiratory Exam Respiratory Exam: Clear to Auscultation Bilateral - Cardiovascular Exam Cardiovascular Exam: REGULAR RHYTHM - GI/Abdominal Exam GI & Abdominal Exam: Normal Bowel Sounds - Rectal Exam Rectal Exam: NORMAL INSPECTION - Exam Exam: NORMAL INSPECTION - Extremities Exam Extremities exam: Positive for: normal inspection - Back Exam Back exam: NORMAL INSPECTION - Neurological Exam Neurological exam: Alert, Oriented x3 - Psychiatric Exam Psychiatric exam: Normal Affect - Skin Skin Exam: Normal Color Results - Vital Signs Recent Vital Signs: Last Vital Signs Temp 97.5 F L 05/12/18 07:59 Pulse 92 H 05/12/18 07:59 Resp 20 05/12/18 07:59 BP 117/80 05/12/18 07:59 Pulse Ox 100 05/12/18 07:59 - Labs Result Diagrams: 05/11/18 16:18 05/11/18 16:18 Labs: Laboratory Results - last 24 hr 05/11/18 05/11/18 05/11/18 14:59 15:01 15:21 WBC RBC Hgb Hct MCV MCH MCHC RDW Plt Count MPV Neut % (Auto) Lymph % (Auto) Bowie % (Auto) Eos % (Auto) Baso % (Auto) Neut # (Auto) Lymph # (Auto) Bowie # (Auto) Eos # (Auto) Baso # (Auto) Sodium Potassium Chloride Carbon Dioxide Anion Gap BUN Creatinine Est GFR ( Amer) Est GFR (Non-Af Amer) POC Glucose (mg/dL) 63 L 62 L 101 Random Glucose Calcium Total Bilirubin AST ALT Alkaline Phosphatase Total Protein Albumin Globulin Albumin/Globulin Ratio Lipase Urine Color Urine Clarity Urine pH Ur Specific [place] Urine Protein Urine Glucose (UA) Urine Ketones Urine Blood Urine Nitrate Urine Bilirubin Urine Urobilinogen Ur Leukocyte Esterase Urine WBC (Auto) Urine RBC (Auto) Hyaline Casts Urine Opiates Screen Urine Methadone Screen Ur Barbiturates Screen Ur Phencyclidine Scrn Ur Amphetamines Screen U Benzodiazepines Scrn U Oth Cocaine Metabols U Cannabinoids Screen 05/11/1818 05/11/18 16:18 16:18 18:15 WBC 6.7 RBC 3.73 L Hgb 9.7 L Hct 30.0 L MCV 80.3 D MCH 26.1 L MCHC 32.5 L RDW 15.9 H Plt Count 271 MPV 8.3 Neut % (Auto) 71.6 Lymph % (Auto) 20.0 Bowie % (Auto) 6.8 Eos % (Auto) 0.8 Baso % (Auto) 0.8 Neut # (Auto) 4.8 Lymph # (Auto) 1.3 Bowie # (Auto) 0.5 Eos # (Auto) 0.1 Baso # (Auto) 0.1 Sodium 134 Potassium 4.9 Chloride 100 Carbon Dioxide 23 Anion Gap 16 BUN 40 H Creatinine 1.9 H Est GFR ( Amer) 52 Est GFR (Non-Af Amer) 43 POC Glucose (mg/dL) Random Glucose 176 H Calcium 9.1 Total Bilirubin 0.6 AST 40 ALT 50 Alkaline Phosphatase 133 H D Total Protein 8.1 Albumin 3.9 Globulin 4.2 H Albumin/Globulin Ratio 0.9 L Lipase 123 Urine Color Yellow Urine Clarity Clear Urine pH 5.0 Ur Specific [place] 1.014 Urine Protein 2+ H Urine Glucose (UA) 3+ H Urine Ketones Negative Urine Blood 1+ H Urine Nitrate Negative Urine Bilirubin Negative Urine Urobilinogen Normal Ur Leukocyte Esterase Neg Urine WBC (Auto) < 1 Urine RBC (Auto) 7 H Hyaline Casts 6-10 H Urine Opiates Screen Urine Methadone Screen Ur Barbiturates Screen Ur Phencyclidine Scrn Ur Amphetamines Screen U Benzodiazepines Scrn U Oth Cocaine Metabols U Cannabinoids Screen 05/11/18 05/11/18 05/11/18 18:15 19:28 20:57 WBC RBC Hgb Hct MCV MCH MCHC RDW Plt Count MPV Neut % (Auto) Lymph % (Auto) [place] % (Auto) Eos % (Auto) Baso % (Auto) Neut # (Auto) Lymph # (Auto) Bowie # (Auto) Eos # (Auto) Baso # (Auto) Sodium Potassium Chloride Carbon Dioxide Anion Gap BUN Creatinine Est GFR ( Amer) Est GFR (Non-Af Amer) POC Glucose (mg/dL) 494 H* 494 H* Random Glucose Calcium Total Bilirubin AST ALT Alkaline Phosphatase Total Protein Albumin Globulin Albumin/Globulin Ratio Lipase Urine Color Urine Clarity Urine pH Ur Specific [place] Urine Protein Urine Glucose (UA) Urine Ketones Urine Blood Urine Nitrate Urine Bilirubin Urine Urobilinogen Ur Leukocyte Esterase Urine WBC (Auto) Urine RBC (Auto) Hyaline Casts Urine Opiates Screen Negative Urine Methadone Screen Negative Ur Barbiturates Screen Negative Ur Phencyclidine Scrn Negative Ur Amphetamines Screen Negative U Benzodiazepines Scrn Negative U Oth Cocaine Metabols Negative U Cannabinoids Screen Positive H 05/11/18 05/12/18 05/12/18 23:06 00:58 04:43 WBC RBC Hgb Hct MCV MCH MCHC RDW Plt Count MPV Neut % (Auto) Lymph % (Auto) Bowie % (Auto) Eos % (Auto) Baso % (Auto) Neut # (Auto) Lymph # (Auto) Bowie # (Auto) Eos # (Auto) Baso # (Auto) Sodium Potassium Chloride Carbon Dioxide Anion Gap BUN Creatinine Est GFR ( Amer) Est GFR (Non-Af Amer) POC Glucose (mg/dL) > 500 H* 301 H 86 Random Glucose Calcium Total Bilirubin AST ALT Alkaline Phosphatase Total Protein Albumin Globulin Albumin/Globulin Ratio Lipase Urine Color Urine Clarity Urine pH Ur Specific [place] Urine Protein Urine Glucose (UA) Urine Ketones Urine Blood Urine Nitrate Urine Bilirubin Urine Urobilinogen Ur Leukocyte Esterase Urine WBC (Auto) Urine RBC (Auto) Hyaline Casts Urine Opiates Screen Urine Methadone Screen Ur Barbiturates Screen Ur Phencyclidine Scrn Ur Amphetamines Screen U Benzodiazepines Scrn U Oth Cocaine Metabols U Cannabinoids Screen 05/12/18 06:59 WBC RBC Hgb Hct MCV MCH MCHC RDW Plt Count MPV Neut % (Auto) Lymph % (Auto) [place] % (Auto) Eos % (Auto) Baso % (Auto) Neut # (Auto) Lymph # (Auto) [place] # (Auto) Eos # (Auto) Baso # (Auto) Sodium Potassium Chloride Carbon Dioxide Anion Gap BUN Creatinine Est GFR ( Amer) Est GFR (Non-Af Amer) POC Glucose (mg/dL) 87 Random Glucose Calcium Total Bilirubin AST ALT Alkaline Phosphatase Total Protein Albumin Globulin Albumin/Globulin Ratio Lipase Urine Color Urine Clarity Urine pH Ur Specific [place] Urine Protein Urine Glucose (UA) Urine Ketones Urine Blood Urine Nitrate Urine Bilirubin Urine Urobilinogen Ur Leukocyte Esterase Urine WBC (Auto) Urine RBC (Auto) Hyaline Casts Urine Opiates Screen Urine Methadone Screen Ur Barbiturates Screen Ur Phencyclidine Scrn Ur Amphetamines Screen U Benzodiazepines Scrn U Oth Cocaine Metabols U Cannabinoids Screen Assessment & Plan - Assessment and Plan (Free Text) Assessment: ac hypoglyceamia ac htn dmid - Date & Time Date: 05/12/18 Time: 11:12
[2018-05-12] MEDS: Sodium Chloride 0.9% 1,000 ML IV SCH ×2 (11:18→20:24)
[2018-05-12 11:24] LABS: BLOOD UREA NITROGEN 27 mg/dL (9-20); CALCIUM 9.2 mg/dl (8.6-10.4); GFR AFRICAN-AMERICAN > 60; GFR NON-AFRICAN AMERICAN > 60
[2018-05-12] MEDS: (Novolin R) Insulin Human Regular 100 units/ml vial SC SCH ×3 (12:17→21:48)
[2018-05-12] MEDS ORDERED: Insulin Detemir 100 units/ml Vial (Levemir) SC SCH (22:00)
[2018-05-13] MEDS: (Novolin R) Insulin Human Regular 100 units/ml vial SC SCH ×2 (07:52→11:32)
[2018-05-13] MEDS: Sodium Chloride 0.9% 1,000 ML IV SCH (08:04)
[2018-05-13 09:16] VITALS: BP 173/113; PULSE 93; TEMP 97.4; O2SAT 100
--- NOTE | 2018-05-13 11:32 | CP.PCM.PN ---
Subjective - Date & Time of Evaluation Date of Evaluation: 05/13/18 Time of Evaluation: 11:30 - Subjective Subjective: feels beter Objective - Vital Signs/Intake and Output Vital Signs (last 24 hours): Temp Pulse Resp BP Pulse Ox 97.4 F L 93 H 20 173/113 H 100 05/13/18 08:00 05/13/18 08:00 05/13/18 08:00 05/13/18 08:00 05/13/18 08:00 Intake and Output: 05/13/18 05/13/18 06:59 18:59 Intake Total 1280 240 Output Total 400 Balance 1280 -160 - Medications Medications: Current Medications Heparin Sodium (Porcine) (Heparin) 5,000 units SC Q12 [facility] Last Admin: 05/13/18 09:30 Dose: Not Given Hydralazine HCl (Apresoline) 50 mg PO BID [facility] Last Admin: 05/13/18 09:30 Dose: 50 mg Sodium Chloride (Sodium Chloride 0.9%) 1,000 mls @ 100 mls/hr IV .Q10H [facility] Last Admin: 05/13/18 08:04 Dose: 100 mls/hr Insulin Detemir (Levemir) 8 unit SC HS [facility] Last Admin: 05/12/18 21:48 Dose: 8 unit Insulin Human Regular (Novolin R) 0 unit SC ACHS [facility] PRN Reason: Protocol Last Admin: 05/13/18 07:52 Dose: 2 units - Labs Labs: 05/12/18 10:59 05/12/18 10:59 - Constitutional Appears: Non-toxic - Head Exam Head Exam: NORMAL INSPECTION - Eye Exam Eye Exam: Normal appearance Pupil Exam: NORMAL ACCOMODATION - ENT Exam ENT Exam: Normal Exam - Neck Exam Neck Exam: Full ROM - Respiratory Exam Respiratory Exam: Clear to Ausculation Bilateral - Cardiovascular Exam Cardiovascular Exam: REGULAR RHYTHM - GI/Abdominal Exam GI & Abdominal Exam: Normal Bowel Sounds - Rectal Exam Rectal Exam: Deferred - Exam Exam: NORMAL INSPECTION External exam: NORMAL EXTERNAL EXAM - Extremities Exam Extremities Exam: Normal Inspection - Back Exam Back Exam: NORMAL INSPECTION - Neurological Exam Neurological Exam: Alert, Normal Gait, Oriented x3 - Psychiatric Exam Psychiatric exam: Normal Mood - Skin Skin Exam: Intact, Normal Color Assessment and Plan - Assessment and Plan (Free Text) Assessment: hypoglyceamia dmid Plan: will add insulin may d/c f/u in office
--- NOTE | 2018-05-13 12:44 | CP.PCM.PN ---
Subjective - Date & Time of Evaluation Date of Evaluation: 05/13/18 Time of Evaluation: 12:44 - Subjective Subjective: -FOLLOW UP WITH DR. PHIPPS IN THE OFFICE IN 1 WEEK---CALL THE OFFICE TOMORROW TO MAKE YOUR APPOINTMENT. -REMEMBER TO TAKE YOUR INSULINS AND BLOOD PRESSURE MEDICATION EXACTLY RECOMMENDED. -FOLLOW A DIABETIC AND BLOOD PRESSURE FRIENDLY DIET. -YOU MAY CHECK YOUR BLOOD PRESSURE ONCE A DAY OR EVERY OTHER DAY; KEEP A RECORD OF YOUR RECORDINGS AND DISCUSS WITH DR. PHIPPS WHEN YOU SEE HER. -CONTINUE YOUR LISINOPRIL AT HOME USUAL UNTIL YOU SEE DR. PHIPPS. -CONTINUE INSULINS AT ORDERED: 1) LEVEMIR 8 UNITS AT BEDTIME. 2) NOVOLOG THREE TIMES A DAY BEFORE EACH MEAL AND AT BEDTIME; USE SLIDING SCALE NOTED BELOW: SUGAR BELOW 150 = NO COVERAGE BETWEEN 151-199 = 2 UNITS BETWEEN 200-249 = 3 UNITS BETWEEN 250-299 = 4 UNITS BETWEEN 300-349 = 6 UNITS BETWEEN 350-400 = 8 UNITS GREATER THAN 401 = 10 UNITS AND NOTIFY YOUR PRIMARY DOCTOR FOR FURTHER INSTRUCTIONS SLIDING SCALE FOR BEDTIME BLOOD SUGAR: BELOW 299 = NO COVERAGE BETWEEN 300-349 = 2 UNITS BETWEEN 350-400 = 3 UNITS GREATER THAN 401 = 4 UNITS -IF YOU HAVE ANY FURTHER QUESTIONS OR CONCERNS, CONTACT DR. PHIPPS'S OFFICE. Objective - Vital Signs/Intake and Output Vital Signs (last 24 hours): Temp Pulse Resp BP Pulse Ox 97.4 F L 93 H 20 173/113 H 100 05/13/18 08:00 05/13/18 08:00 05/13/18 08:00 05/13/18 08:00 05/13/18 08:00 Intake and Output: 05/13/18 05/13/18 06:59 18:59 Intake Total 1280 240 Output Total 400 Balance 1280 -160 - Medications Medications: Current Medications Heparin Sodium (Porcine) (Heparin) 5,000 units SC Q12 [facility] Last Admin: 05/13/18 09:30 Dose: Not Given Hydralazine HCl (Apresoline) 50 mg PO BID [facility] Last Admin: 05/13/18 09:30 Dose: 50 mg Insulin Detemir (Levemir) 8 unit SC HS [facility] Last Admin: 05/12/18 21:48 Dose: 8 unit Insulin Human Regular (Novolin R) 0 unit SC ACHS [facility] PRN Reason: Protocol Last Admin: 05/13/18 11:32 Dose: 6 units - Labs Labs: 05/12/18 10:59 05/12/18 10:59
== END 2018-05-13 14:15 | disposition home or self-care (01) | DRG 295 ==
LOC: C.ER 14:48 → C.3T 18:59
PROVIDERS: ADMIT Internal Medicine; ATTEND Internal Medicine
DX: E10.649 Type 1 diabetes mellitus with hypoglycemia without coma (principal); E86.0 Dehydration; F17.210 Nicotine dependence, cigarettes, uncomplicated; I10 Essential (primary) hypertension

== ENCOUNTER 2018-06-22 01:20 | Emergency (ER) | payer MEDICAID ==
[2018-06-22] MEDS ORDERED: Sodium Chloride 0.9% 1,000 ML ONE ×2 (02:08→02:56)
[2018-06-22] MEDS ORDERED: Sodium Chloride 0.9% 1,000 ML IV ONE ×2 (02:11→02:28)
[2018-06-22] MEDS ORDERED: (Novolin R) Insulin Human Regular 100 units/ml vial SC ONE (02:29)
--- NOTE | 2018-06-22 02:39 | C.PDOC ---
History Of Present Illness 28 y/o male BIB EMS with history of diabetes presents to the ER feeling unwell for several hours due to elevated blood sugar. Prior to arrival the patient states his blood sugar was 500. Patient denies any nausea or vomiting. Time Seen by Provider: 06/22/18 02:00 Chief Complaint (Nursing): High Blood Sugar History Per: Patient History/Exam Limitations: no limitations Onset/Duration Of Symptoms: Hrs Associated Infectious Symptoms: denies: Nausea, Vomiting Past Medical History Vital Signs: Last Vital Signs Temp 97.5 F L 06/22/18 01:40 Pulse 95 H 06/22/18 01:40 Resp 16 06/22/18 01:40 BP 94/58 L 06/22/18 01:40 Pulse Ox 98 06/22/18 02:44 - Medical History PMH: Diabetes (Type 1), Fractures (R shoulder 2014), HTN Denies: Chronic Kidney Disease Other Surgeries: Left foot surgery with graft - [facility] Procedures EXCISION OF L FOOT SUBCU/FASCIA, OPEN APPROACH (09/16/17) FLUOROSCOPY OF SUPERIOR VENA CAVA, GUIDANCE (09/16/17) INSERTION OF INFUSION DEV INTO SUP VENA CAVA, PERC APPROACH (09/16/17) REPLACE L FOOT SKIN W NONAUT SUB, FULL THICK, 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 Constitutional: Negative for: Fever Gastrointestinal: Negative for: Nausea, Vomiting Physical Exam - Physical Exam Appears: Non-toxic, No Acute Distress Skin: Normal Color, Warm, Dry Head: Atraumatic, Normacephalic Eye(s): bilateral: PERRL, EOMI Ear(s): Bilateral: Normal Nose: Normal Oral Mucosa: Moist Neck: Normal ROM, Supple Chest: Symmetrical Cardiovascular: Rhythm Regular Respiratory: Normal Breath Sounds, No Rales, No Rhonchi, No Wheezing Gastrointestinal/Abdominal: Normal Exam, Soft, No Tenderness Extremity: Normal ROM Extremity: Bilateral: Atraumatic, Normal Color And Temperature, Normal ROM Pulses: Left Dorsalis Pedis: Normal, Right Dorsalis Pedis: Normal Neurological/Psych: Oriented x3 ED Course And Treatment - Laboratory Results Result Diagrams: 06/22/18 02:49 06/22/18 04:34 O2 Sat by Pulse Oximetry: 98 (RA) Pulse Ox Interpretation: Normal Medical Decision Making Medical Decision Making: Impression: 28 y/o with elevated blood sugar Plan: --CMP --CBC --Insulin --IV FLuids Disposition Counseled Patient/Family Regarding: Diagnosis - Disposition Referrals: [facility] [Outside] Disposition Time: 05:03 Condition: IMPROVED Instructions: Hyperglycemia, Child, Type 1 Diabetes Forms: [employer] ([place]) - POA Present On Arrival: None - Clinical Impression Clinical Impression: Diabetes mellitus, Hyperglycemia due to type 1 diabetes mellitus - Scribe Statement The provider has reviewed the documentation as recorded by the Scribe (Madhuri Lance) Provider Attestation: All medical record entries made by the Scribe were at my direction and personally dictated by me. I have reviewed the chart and agree that the record accurately reflects my personal performance of the history, physical exam, medical decision making, and the department course for this patient. I have also personally directed, reviewed, and agree with the discharge instructions and disposition.
[2018-06-22 02:52] LABS: BASO # 0.1 K/uL (0.0-0.2); BASO % 1.1 % (0.0-2.0); EOS # 0.1 K/uL (0.0-0.7); EOS % 1.6 % (0.0-4.0); HEMOGLOBIN 8.9 g/dL (12.0-18.0); LYMPH # 2.5 K/uL (1.0-4.3); LYMPH % 36.2 % (20.0-40.0); MEAN CELL VOLUME 82.6 fL (80.0-94.0); MEAN CORPUSCULAR HEMOGLOBIN 27.4 pg (27.0-31.0); MEAN CORPUSCULAR HGB CONC 33.2 g/dL (33.0-37.0); MEAN PLATELET VOLUME 9.2 fL (7.2-11.7); MONO # 0.4 K/uL (0.0-0.8); MONO % 5.9 % (0.0-10.0); NEUT # 3.9 K/uL (1.8-7.0); NEUT % 55.2 % (50.0-75.0); NRBC % 0.1 % (0.0-2.0); RBC 3.25 Mil/uL (4.40-5.90); RED CELL DISTRIBUTION WIDTH 16.8 % (11.5-14.5)
[2018-06-22] MEDS ORDERED: (Novolin R) Insulin Human Regular 100 units/ml vial ONE (02:56)
[2018-06-22 03:26] LABS: ALB/GLOB RATIO 0.9 (1.0-2.1); CALCIUM 9.6 mg/dl (8.6-10.4)
[2018-06-22 04:52] LABS: BLOOD UREA NITROGEN 40 mg/dL (9-20); CALCIUM 8.8 mg/dl (8.6-10.4); GFR AFRICAN-AMERICAN > 60; GFR NON-AFRICAN AMERICAN 56
[2018-06-22 05:14] VITALS: BP 137/95; PULSE 92; RESP 14; TEMP 97.8; O2SAT 99
== END 2018-06-22 05:13 | disposition home or self-care (01) ==
LOC: C.ER 01:20
DX: E10.65 Type 1 diabetes mellitus with hyperglycemia (principal)
CPT/HCPCS: 80053; 82948; 85025; 96360; 96361; 99284; J7030

== ENCOUNTER 2018-07-09 07:16 | Inpatient (IN) | payer MEDICAID ==
[2018-07-09] MEDS ORDERED: Sodium Chloride 0.9% 1,000 ML IV ONE ×2 (07:55→09:35)
--- NOTE | 2018-07-09 08:04 | C.PDOC ---
History Of Present Illness 28-year-old male with a past medical history of diabetes and hypertension brought in by ambulance for complaints of nausea, vomiting, and diarrhea, that began upon waking up this morning. He also reports generalized weakness. Patient denies any fever, chills, abdominal distension, pain, dizziness, headache, or other complaints. Finger stick on arrival is over 500. Patient admits to noncompliance with his medications. Time Seen by Provider: 07/09/18 07:39 Chief Complaint (Nursing): GI Problem History Per: Patient History/Exam Limitations: no limitations Onset/Duration Of Symptoms: Hrs Current Symptoms Are (Timing): Still Present Associated Symptoms: Nausea, Vomiting, Diarrhea Past Medical History Reviewed: Historical Data, Nursing Documentation, Vital Signs Vital Signs: Last Vital Signs Temp 97.9 F 07/09/18 08:51 Pulse 92 H 07/09/18 10:02 Resp 20 07/09/18 10:02 BP 116/86 07/09/18 10:02 Pulse Ox 99 07/09/18 10:02 - Medical History PMH: Diabetes (Type 1), Fractures (R shoulder 2014), HTN Denies: Chronic Kidney Disease - [facility] Procedures EXCISION OF L FOOT SUBCU/FASCIA, OPEN APPROACH (09/16/17) FLUOROSCOPY OF SUPERIOR VENA CAVA, GUIDANCE (09/16/17) INSERTION OF INFUSION DEV INTO SUP VENA CAVA, PERC APPROACH (09/16/17) REPLACE L FOOT SKIN W NONAUT SUB, FULL THICK, NODE JS DEVELOPER (09/16/17) Family History: States: Diabetes (Grandmother on Fathers side) - Social History Hx Tobacco Use: No Hx Alcohol Use: No Hx Substance Use: Yes (uses marijuana occasionally) - Immunization History Hx Tetanus Toxoid Vaccination: Yes Hx Influenza Vaccination: Yes Hx Pneumococcal Vaccination: Yes Review Of Systems Except As Marked, All Systems Reviewed And Found Negative. Constitutional: Positive for: Weakness. Negative for: Fever, Chills Cardiovascular: Negative for: Chest Pain Respiratory: Negative for: Shortness of Breath Gastrointestinal: Positive for: Nausea, Vomiting, Diarrhea. Negative for: Hematochezia, Hematemesis Neurological: Negative for: Headache, Dizziness Physical Exam - Physical Exam Appears: Non-toxic, No Acute Distress Skin: Warm, Dry Head: Atraumatic, Normacephalic Eye(s): bilateral: Normal Inspection Neck: Normal ROM Chest: Symmetrical Cardiovascular: Rhythm Regular, No Murmur Respiratory: Normal Breath Sounds, No Rales, No Rhonchi, No Wheezing Gastrointestinal/Abdominal: Bowel Sounds (hyperactive), Soft, No Tenderness, No Distention, No Guarding Back: Normal Inspection, No CVA Tenderness Extremity: Bilateral: Atraumatic, No Pedal Edema, Normal ROM Neurological/Psych: Oriented x3, Normal Speech ED Course And Treatment - Laboratory Results Result Diagrams: 07/09/18 08:16 18 08:16 ECG: Interpreted By Me, Viewed By Me ECG Rhythm: Sinus Tachycardia Interpretation Of ECG: Sinus tach at 101bpm with slight left axis deviation, and T waves Rate From EC O2 Sat by Pulse Oximetry: 97 (room air) Pulse Ox Interpretation: Normal Medical Decision Making Medical Decision Making: Impression: 28-year-old with vomiting and diarrhea, with known uncontrolled diabetes Records reviewed from prior ED visits: Patient has multiple prior visits with similar complaints and poorly controlled blood sugar, last seen on 06/22. Plan: --EKG --VBG --CMP --Beta hydoxybutyrate --CBC --Urinalysis --Urine culture --IV fluids --Zofran 4 mg IVP --Protonix 40 mg IVP --Reassessment Progress: VBG results shows no acidosis, Glucose >750, K is 5.6 CBC shows no changes from prior visits. CMP shows hyperkalemia and hyperglycemia. Urine shows glucose and protein, no ketones. Additional orders placed for Insulin and hypoglycemia protocol. Patient remained afebrile and in no acute distress. On re-eval he states he feels unchanged, still has nausea but no vomiting and also had another episode of non-bloody diarrhea. [id number] Crouch who accepted the patient to medical tele service for observation Disposition - Disposition Disposition: HOSPITALIZED Disposition Time: 10:44 Condition: STABLE - POA Present On Arrival: Poor Glycemic Control - Clinical Impression Clinical Impression: Uncontrolled type 1 diabetes mellitus - PA / CLINICAL PHYSICIAN ASSISTANT / Resident Statement MD/DO has reviewed & agrees with the documentation as recorded. - Scribe Statement The provider has reviewed the documentation as recorded by the Scribe (Charleen Paula) Decision To Admit - Pt Status Changed To: Hospital Disposition Of: Observation - . Bed Request Type: Telemetry Admitting Physician: Meghan Crouch Patient Diagnosis: Uncontrolled type 1 diabetes mellitus
[2018-07-09] MEDS ORDERED: Sodium Chloride 0.9% 1,000 ML ONE ×2 (08:10→09:40)
[2018-07-09 08:23] LABS: BASO # 0.1 K/uL (0.0-0.2); EOS # 0.1 K/uL (0.0-0.7); EOS % 0.9 % (0.0-4.0); HEMOGLOBIN 8.3 g/dL (12.0-18.0); LYMPH # 0.9 K/uL (1.0-4.3); LYMPH % 13.3 % (20.0-40.0); MEAN CORPUSCULAR HEMOGLOBIN 27.7 pg (27.0-31.0); MEAN CORPUSCULAR HGB CONC 32.5 g/dL (33.0-37.0); MEAN PLATELET VOLUME 8.1 fL (7.2-11.7); MONO # 0.5 K/uL (0.0-0.8); MONO % 7.2 % (0.0-10.0); NEUT # 5.3 K/uL (1.8-7.0); NEUT % 77.6 % (50.0-75.0); RBC 2.99 Mil/uL (4.40-5.90); RED CELL DISTRIBUTION WIDTH 16.4 % (11.5-14.5); WHITE BLOOD COUNT 6.8 K/uL (4.8-10.8)
[2018-07-09 08:27] LABS: MEAN CELL VOLUME 85.1 fL (80.0-94.0)
[2018-07-09 08:27] LABS: VENOUS BLOOD GAS BASE EXCESS -3.9 mmol/L (0.0-2.0); VENOUS BLOOD GAS PCO2 43 mmHg (40-60); VENOUS BLOOD GAS PO2 85 mm/Hg (30-55); VENOUS BLOOD PH 7.32 (7.32-7.43)
[2018-07-09 08:38] LABS: SQUAMOUS EPITHIAL < 1 /hpf (0-5); URINE BILIRUBIN NEGATIVE (NEGATIVE); URINE BLOOD 1+ (NEGATIVE); URINE CLARITY Clear (Clear); URINE COLOR Straw (YELLOW); URINE GLUCOSE (UA) 3+ mg/dL (Normal); URINE LEUKOCYTE ESTERASE NEG Leu/uL (Negative); URINE PROTEIN 2+ mg/dL (NEGATIVE); URINE UROBILINOGEN NORMAL mg/dL (0.2-1.0)
[2018-07-09] MEDS ORDERED: (Novolin R) Insulin Human Regular 100 units/ml vial IV ONE (08:38)
[2018-07-09] MEDS ORDERED: Dextrose 50% SYRINGE Inj (50 ml) IV PRN ×2 (08:38→14:43)
[2018-07-09] MEDS ORDERED: Glucagon Recombinant 1 mg Inj IM PRN ×3 (08:38→14:43)
[2018-07-09] MEDS ORDERED: (Novolin R) Insulin Human Regular 100 units/ml vial ONE (08:49)
[2018-07-09 09:04] LABS: ALBUMIN 3.8 g/dL (3.5-5.0); ALT/SGPT 48 U/L (21-72); AST/SGOT 34 U/L (17-59); BLOOD UREA NITROGEN 33 mg/dL (9-20); CALCIUM 9.3 mg/dl (8.6-10.4); GFR AFRICAN-AMERICAN > 60; GFR NON-AFRICAN AMERICAN > 60
[2018-07-09 11:04] LABS: CALCIUM 8.4 mg/dl (8.6-10.4); GFR AFRICAN-AMERICAN > 60; GFR NON-AFRICAN AMERICAN > 60
[2018-07-09 11:07] LABS: BLOOD UREA NITROGEN 28 mg/dL (9-20)
[2018-07-09] MEDS ORDERED: Sod Polystyrene Sulf 15 gm/60 ml Susp PO ONE (11:13)
[2018-07-09] MEDS ORDERED: Calcium Gluconate 4.65 mEq/10 ml Inj IVP ONE (12:03)
[2018-07-09] MEDS ORDERED: Dextrose 50% SYRINGE Inj (50 ml) IVP PRN (12:07)
[2018-07-09] MEDS ORDERED: Albuterol-Ipratrop 3 mg / 0.5 (3 ml) UD INH STA (12:08)
[2018-07-09] MEDS ORDERED: Albuterol-Ipratrop 3 mg / 0.5 (3 ml) UD ONE (12:17)
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
[2018-07-09] MEDS ORDERED: Sodium Chloride 0.45% 1,000 ML IV SCH (15:00)
[2018-07-09] MEDS ORDERED: (Novolog) Insulin Aspart, Recombinant 100 u/ml 10 ml vial ONE (15:05)
[2018-07-09] MEDS ORDERED: (Novolog) Insulin Aspart, Recombinant 100 u/ml 10 ml vial SC SCH (16:30)
[2018-07-09] MEDS ORDERED: Iohexol 240 (50 ml) PO ONE (18:45)
[2018-07-09] MEDS ORDERED: Iodixanol 320 MG/ML 100 ML BOTTLE IV ONE (20:37)
[2018-07-09 20:53] LABS: IRON 33 ug/dL (49-181)
[2018-07-09 21:05] LABS: % IRON SATURATION 14 (20-55); TOTAL IRON BINDING CAPACITY 234 ug/dL (250-450)
[2018-07-09 21:18] LABS: BARBITURATES, UR NEGATIVE (NEGATIVE); BENZODIAZEPINES, UR NEGATIVE (NEGATIVE); OPIATES, UR NEGATIVE (NEGATIVE); PHENCYCLIDINE, UR NEGATIVE (NEGATIVE)
[2018-07-09 21:26] LABS: HEPATITIS B SURFACE AG Negative (NEGATIVE)
[2018-07-09 21:31] LABS: HEPATITIS A IGM NEGATIVE (NEGATIVE); HEPATITIS B CORE AB NEGATIVE (NEGATIVE)
[2018-07-09 21:43] LABS: HEPATITIS C ANTIBODY NEGATIVE (NEGATIVE)
[2018-07-09] MEDS: Sodium Chloride 0.45% 1,000 ML IV SCH (21:47)
[2018-07-09] MEDS ORDERED: Insulin Detemir 100 units/ml Vial (Levemir) SC SCH ×2 (22:00)
[2018-07-09] MEDS: (Novolog) Insulin Aspart, Recombinant 100 u/ml 10 ml vial SC SCH (22:02)
[2018-07-09 22:04] LABS: FOLATE 9.2 ng/mL
[2018-07-09 23:28] LABS: BLOOD UREA NITROGEN 23 mg/dL (9-20); CALCIUM 9.3 mg/dl (8.6-10.4); GFR AFRICAN-AMERICAN > 60; GFR NON-AFRICAN AMERICAN > 60
[2018-07-10] MEDS: Sodium Chloride 0.45% 1,000 ML IV SCH (03:23)
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
[2018-07-10] MEDS: (Novolog) Insulin Aspart, Recombinant 100 u/ml 10 ml vial SC SCH ×7 (07:42→21:31)
[2018-07-10 08:10] LABS: BASO # 0.1 K/uL (0.0-0.2); BASO % 1.1 % (0.0-2.0); EOS # 0.1 K/uL (0.0-0.7); HEMOGLOBIN 8.1 g/dL (12.0-18.0); LYMPH # 1.3 K/uL (1.0-4.3); LYMPH % 24.6 % (20.0-40.0); MEAN CORPUSCULAR HEMOGLOBIN 27.3 pg (27.0-31.0); MEAN CORPUSCULAR HGB CONC 33.2 g/dL (33.0-37.0); MEAN PLATELET VOLUME 7.6 fL (7.2-11.7); MONO # 0.4 K/uL (0.0-0.8); MONO % 7.2 % (0.0-10.0); NEUT # 3.4 K/uL (1.8-7.0); NEUT % 65.1 % (50.0-75.0); NRBC % 0.1 % (0.0-2.0); RBC 2.98 Mil/uL (4.40-5.90); RED CELL DISTRIBUTION WIDTH 16.2 % (11.5-14.5); WHITE BLOOD COUNT 5.3 K/uL (4.8-10.8)
[2018-07-10 08:11] LABS: MEAN CELL VOLUME 82.3 fL (80.0-94.0)
[2018-07-10 08:23] LABS: ALB/GLOB RATIO 0.8 (1.0-2.1); ALBUMIN 3.1 g/dL (3.5-5.0); ALT/SGPT 26 U/L (21-72); AST/SGOT 21 U/L (17-59); BLOOD UREA NITROGEN 19 mg/dL (9-20); GFR AFRICAN-AMERICAN > 60; GFR NON-AFRICAN AMERICAN > 60
--- NOTE | 2018-07-10 10:32 | CP.PCM.CON ---
<Elan Fernandez - Last Filed: 07/10/18 23:52> History of Present Illness - History of Present Illness History of Present Illness: Podiatry Consult Note- Dr. Myles 28 y.o male with DM I, HTN seen and evaluated for left foot swelling and pain at bedside with attending Dr. Myles. Patient reports that he has left foot ulcerations in the past with a history of posterior heel ulceration with osteomyelitis in which he was treated by Dr. Myles. Reports getting his ulcerations debrided with graft placement in the past. Patient reports the ulcerations has healed. Reports increase swelling and pain, worse with ambulating. Denies nausea, fever, shortness of breath, chest pains or chills. No other complaints at this time PMH: DM I, HTN PSH: left foot surgery SH: reports smoking marijuana daily, denies alcohol use ALL: NKDA FH: DM, HTN MEDS: see MAR list Past Patient History - Infectious Disease Hx of Infectious Diseases: None - Tetanus Immunizations Tetanus Immunization: Unknown - Past Medical History & Family History Past Medical History?: Yes - Past Social History Smoking Status: Never Smoked - CARDIAC Hx Hypertension: Yes - PULMONARY Hx Respiratory Disorders: No - NEUROLOGICAL Hx Neurological Disorder: No - HEENT Hx HEENT Problems: No - RENAL Hx Chronic Kidney Disease: No - ENDOCRINE/METABOLIC Hx Endocrine Disorders: Yes (SEE COMMENT) Hx Diabetes Mellitus Type 1: Yes - HEMATOLOGICAL/ONCOLOGICAL Hx Blood Disorders: No - INTEGUMENTARY Hx Dermatological Problems: Yes Other/Comment: rle healed wound dry discolored skin dry thick toenails dry dark discolored toes, dry skin to knees, generalized dry skin to body, lle 1.5cm x 1cm dry wound to top of foot light and brosn in color, dry thick toenails, dark discolored leathery skin, scar to posterior leg from ankle to below calf from debridement of osteomylitis 12 cm long pink red brown and white dry skin - MUSCULOSKELETAL/RHEUMATOLOGICAL Hx Falls: No - GASTROINTESTINAL Hx Gastrointestinal Disorders: No - GENITOURINARY/GYNECOLOGICAL Hx Genitourinary Disorders: No - PSYCHIATRIC Hx Substance Use: Yes - SURGICAL HISTORY Hx Surgeries: Yes (SEE COMMENT) Other/Comment: Left foot surgery with graft - ANESTHESIA Hx Anesthesia: Yes Hx Anesthesia Reactions: No Hx Malignant Hyperthermia: No Meds Allergies/Adverse Reactions: Allergies Allergy/AdvReac Type Severity Reaction Status Date / Time pollen extracts Allergy Intermediate ITCHING Verified 06/22/18 01:49 - Medications Medications: Current Medications Amlodipine Besylate (Norvasc) 5 mg PO DAILY [facility] Last Admin: 07/10/18 09:30 Dose: 5 mg Dextrose (Dextrose 50% Inj) 0 ml IV STAT PRN; Protocol PRN Reason: Hypoglycemia Protocol Dextrose (Glutose 15) 0 gm PO ONCE PRN; Protocol PRN Reason: Hypoglycemia Protocol Dextrose (Dextrose 50% Inj) 0 ml IVP .STAT PRN; Protocol PRN Reason: Hypoglycemia Protocol Dextrose (Glutose 15) 0 gm PO .ONCE PRN; Protocol PRN Reason: Hypoglycemia Protocol Dextrose (Dextrose 50% Inj) 0 ml IV STAT PRN; Protocol PRN Reason: Hypoglycemia Protocol Dextrose (Glutose 15) 0 gm PO ONCE PRN; Protocol PRN Reason: Hypoglycemia Protocol Famotidine (Pepcid) 20 mg PO BID [facility] Last Admin: 07/10/18 09:30 Dose: 20 mg Glucagon (Glucagen Diagnostic Kit) 0 mg IM STAT PRN; Protocol PRN Reason: Hypoglycemia Protocol Glucagon (Glucagen Diagnostic Kit) 0 mg IM .STAT PRN; Protocol PRN Reason: Hypoglycemia Protocol Glucagon (Glucagen Diagnostic Kit) 0 mg IM STAT PRN; Protocol PRN Reason: Hypoglycemia Protocol Heparin Sodium (Porcine) (Heparin) 5,000 units SC Q8 [facility] Last Admin: 07/10/18 05:52 Dose: Not Given Hydralazine HCl (Apresoline) 10 mg IVP Q6H PRN PRN Reason: Systolic Blood Pressure Dextrose (Dextrose 5% In Water 1000 Ml) 1,000 mls @ 0 mls/hr IV .Q0M PRN; Protocol; Per Protocol PRN Reason: Hypoglycemia Protocol Dextrose (Dextrose 5% In Water 1000 Ml) 1,000 mls @ 0 mls/hr IV .Q0M PRN; Protocol; Per Protocol PRN Reason: Hypoglycemia Protocol Dextrose (Dextrose 5% In Water 1000 Ml) 1,000 mls @ 0 mls/hr IV .Q0M PRN; Protocol; Per Protocol PRN Reason: Hypoglycemia Protocol Ceftriaxone Sodium 1 gm/ (Sodium Chloride) 100 mls @ 100 mls/hr IVPB Q12H [facility] PRN Reason: Protocol Last Admin: 07/10/18 03:22 Dose: 100 mls/hr Sodium Chloride (Sodium Chloride 0.45%) 1,000 mls @ 125 mls/hr IV .Q8H [facility] Last Admin: 07/10/18 03:23 Dose: 125 mls/hr Insulin Aspart (Novolog) 0 unit SC ACHS [facility] PRN Reason: Protocol Last Admin: 07/10/18 07:42 Dose: Not Given Insulin Aspart (Novolog) 12 unit SC AC [facility] Last Admin: 07/10/18 08:06 Dose: 12 units Insulin Detemir (Levemir) 24 unit SC HS [facility] Last Admin: 07/09/18 22:01 Dose: 24 u Physical Exam - Constitutional Appears: Well, Non-toxic, No Acute Distress - Extremities Exam Extremities exam: Negative for: calf tenderness Additional comments: VASC: DP and PT 2/4, temperature gradient warm to warm to bilateral lower extremity, CFT < 3 seconds, edema noted to the left lower extremity ORTHO: mild pain illicited on posterior heel, MM is 5/5 in all four compartments , collapsed arch NEURO: gross sensation diminished, protection sensation slightly diminished DERM: Hyperkeratotic elevated lesion noted to the medial dorsum left foot at the level of the 1st metatarsal base. No opening, no erythema, no streaking, no purulence, no clinical signs of infection. Completely healed ulceration with mixture of hypopigmented and hyperpigmented lesion noted to the posterior distal leg approximately 12 cm in length. Entire lower extremity with xerosis, leathery skin with thicken discolored hypertrophic with subungal debris noted to nails 1-10 - Psychiatric Exam Psychiatric exam: Normal Affect, Normal Mood Results - Vital Signs Recent Vital Signs: Last Vital Signs Temp 98.2 F 07/10/18 07:35 Pulse 95 H 07/10/18 07:35 Resp 20 07/10/18 07:35 BP 168/110 H 07/10/18 07:35 Pulse Ox 99 07/10/18 07:35 - Labs Result Diagrams: 07/10/18 07:52 07/10/18 07:52 Labs: Laboratory Results - last 24 hr 07/09/18 07/09/18 07/09/18 10:48 13:38 13:38 WBC RBC Hgb Hct MCV MCH MCHC RDW Plt Count MPV Neut % (Auto) Lymph % (Auto) Otero % (Auto) Eos % (Auto) Baso % (Auto) Neut # (Auto) Lymph # (Auto) Otero # (Auto) Eos # (Auto) Baso # (Auto) Retic Count Sodium 138 Potassium 6.0 H Chloride 109 H Carbon Dioxide 18 L Anion Gap 17 BUN 28 H Creatinine 1.2 Est GFR ( Amer) > 60 Est GFR (Non-Af Amer) > 60 POC Glucose (mg/dL) Random Glucose 394 H Hemoglobin A1c Calcium 8.4 L Phosphorus Magnesium 1.8 Iron TIBC % Saturation Ferritin Total Bilirubin AST ALT Alkaline Phosphatase Total Protein Albumin Globulin Albumin/Globulin Ratio Triglycerides Cholesterol LDL Cholesterol Direct HDL Cholesterol Amylase Lipase Vitamin B12 Folate Procalcitonin 0.13 L Urine Opiates Screen Urine Methadone Screen Ur Barbiturates Screen Ur Phencyclidine Scrn Ur Amphetamines Screen U Benzodiazepines Scrn U Oth Cocaine Metabols U Cannabinoids Screen Hepatitis A IgM Ab Hep Bs Antigen Hep B Core IgM Ab Hepatitis C Antibody 07/09/18 07/09/18 07/09/18 14:02 16:23 20:00 WBC RBC Hgb Hct MCV MCH MCHC RDW Plt Count MPV Neut % (Auto) Lymph % (Auto) Otero % (Auto) Eos % (Auto) Baso % (Auto) Neut # (Auto) Lymph # (Auto) Otero # (Auto) Eos # (Auto) Baso # (Auto) Retic Count Sodium Potassium Chloride Carbon Dioxide Anion Gap BUN Creatinine Est GFR ( Amer) Est GFR (Non-Af Amer) POC Glucose (mg/dL) 472 H* 385 H Random Glucose Hemoglobin A1c Calcium Phosphorus Magnesium Iron TIBC % Saturation Ferritin Total Bilirubin AST ALT Alkaline Phosphatase Total Protein Albumin Globulin Albumin/Globulin Ratio Triglycerides Cholesterol LDL Cholesterol Direct HDL Cholesterol Amylase Lipase Vitamin B12 Folate Procalcitonin Urine Opiates Screen Negative Urine Methadone Screen Negative Ur Barbiturates Screen Negative Ur Phencyclidine Scrn Negative Ur Amphetamines Screen Negative U Benzodiazepines Scrn Negative U Oth Cocaine Metabols Negative U Cannabinoids Screen Positive H Hepatitis A IgM Ab Hep Bs Antigen Hep B Core IgM Ab Hepatitis C Antibody 07/09/18 07/09/18 07/09/18 20:10 20:10 20:10 WBC RBC Hgb Hct MCV MCH MCHC RDW Plt Count MPV Neut % (Auto) Lymph % (Auto) Otero % (Auto) Eos % (Auto) Baso % (Auto) Neut # (Auto) Lymph # (Auto) Otero # (Auto) Eos # (Auto) Baso # (Auto) Retic Count 2.6 H Sodium Potassium Chloride Carbon Dioxide Anion Gap BUN Creatinine Est GFR ( Amer) Est GFR (Non-Af Amer) POC Glucose (mg/dL) Random Glucose Hemoglobin A1c Calcium Phosphorus Magnesium Iron 33 L TIBC 234 L % Saturation 14 L Ferritin 115.0 Total Bilirubin AST ALT Alkaline Phosphatase Total Protein Albumin Globulin Albumin/Globulin Ratio Triglycerides 118 Cholesterol 186 LDL Cholesterol Direct 92 HDL Cholesterol 48 Amylase 57 Lipase 52 Vitamin B12 682 Folate 9.2 Procalcitonin Urine Opiates Screen Urine Methadone Screen Ur Barbiturates Screen Ur Phencyclidine Scrn Ur Amphetamines Screen U Benzodiazepines Scrn U Oth Cocaine Metabols U Cannabinoids Screen Hepatitis A IgM Ab Hep Bs Antigen Hep B Core IgM Ab Hepatitis C Antibody 07/09/18 07/09/18 07/09/18 20:10 20:10 21:37 WBC RBC Hgb Hct MCV MCH MCHC RDW Plt Count MPV Neut % (Auto) Lymph % (Auto) Otero % (Auto) Eos % (Auto) Baso % (Auto) Neut # (Auto) Lymph # (Auto) Otero # (Auto) Eos # (Auto) Baso # (Auto) Retic Count Sodium Potassium Chloride Carbon Dioxide Anion Gap BUN Creatinine Est GFR ( Amer) Est GFR (Non-Af Amer) POC Glucose (mg/dL) 436 H* Random Glucose Hemoglobin A1c 11.0 H Calcium Phosphorus Magnesium Iron TIBC % Saturation Ferritin Total Bilirubin AST ALT Alkaline Phosphatase Total Protein Albumin Globulin Albumin/Globulin Ratio Triglycerides Cholesterol LDL Cholesterol Direct HDL Cholesterol Amylase Lipase Vitamin B12 Folate Procalcitonin Urine Opiates Screen Urine Methadone Screen Ur Barbiturates Screen Ur Phencyclidine Scrn Ur Amphetamines Screen U Benzodiazepines Scrn U Oth Cocaine Metabols U Cannabinoids Screen Hepatitis A IgM Ab Negative Hep Bs Antigen Negative Hep B Core IgM Ab Negative Hepatitis C Antibody Negative 07/09/18 07/10/18 07/10/18 23:14 02:13 06:27 WBC RBC Hgb Hct MCV MCH MCHC RDW Plt Count MPV Neut % (Auto) Lymph % (Auto) Otero % (Auto) Eos % (Auto) Baso % (Auto) Neut # (Auto) Lymph # (Auto) Otero # (Auto) Eos # (Auto) Baso # (Auto) Retic Count Sodium 137 Potassium 5.0 Chloride 107 Carbon Dioxide 22 Anion Gap 13 BUN 23 H Creatinine 1.2 Est GFR ( Amer) > 60 Est GFR (Non-Af Amer) > 60 POC Glucose (mg/dL) 273 H 240 H Random Glucose 362 H Hemoglobin A1c Calcium 9.3 Phosphorus Magnesium Iron TIBC % Saturation Ferritin Total Bilirubin AST ALT Alkaline Phosphatase Total Protein Albumin Globulin Albumin/Globulin Ratio Triglycerides Cholesterol LDL Cholesterol Direct HDL Cholesterol Amylase Lipase Vitamin B12 Folate Procalcitonin Urine Opiates Screen Urine Methadone Screen Ur Barbiturates Screen Ur Phencyclidine Scrn Ur Amphetamines Screen U Benzodiazepines Scrn U Oth Cocaine Metabols U Cannabinoids Screen Hepatitis A IgM Ab Hep Bs Antigen Hep B Core IgM Ab Hepatitis C Antibody 07/10/18 07/10/18 07:52 07:52 WBC 5.3 RBC 2.98 L Hgb 8.1 L Hct 24.5 L MCV 82.3 D MCH 27.3 MCHC 33.2 RDW 16.2 H Plt Count 294 MPV 7.6 Neut % (Auto) 65.1 Lymph % (Auto) 24.6 Otero % (Auto) 7.2 Eos % (Auto) 2.0 Baso % (Auto) 1.1 Neut # (Auto) 3.4 Lymph # (Auto) 1.3 Otero # (Auto) 0.4 Eos # (Auto) 0.1 Baso # (Auto) 0.1 Retic Count Sodium 141 Potassium 4.6 Chloride 107 Carbon Dioxide 26 Anion Gap 12 BUN 19 Creatinine 1.2 Est GFR ( Amer) > 60 Est GFR (Non-Af Amer) > 60 POC Glucose (mg/dL) Random Glucose 198 H Hemoglobin A1c Calcium 9.0 Phosphorus 3.8 Magnesium 1.7 Iron TIBC % Saturation Ferritin Total Bilirubin 0.3 AST 21 ALT 26 Alkaline Phosphatase 114 Total Protein 7.0 Albumin 3.1 L Globulin 3.9 Albumin/Globulin Ratio 0.8 L Triglycerides Cholesterol LDL Cholesterol Direct HDL Cholesterol Amylase Lipase Vitamin B12 Folate Procalcitonin Urine Opiates Screen Urine Methadone Screen Ur Barbiturates Screen Ur Phencyclidine Scrn Ur Amphetamines Screen U Benzodiazepines Scrn U Oth Cocaine Metabols U Cannabinoids Screen Hepatitis A IgM Ab Hep Bs Antigen Hep B Core IgM Ab Hepatitis C Antibody Assessment & Plan - Assessment and Plan (Free Text) Assessment: 28M with PMH of DMI and HTN with increase swelling and pain to left foot Plan: Patient seen and examined with attending Dr. Myles at bedside Vitals, labs, chart reviewed Order X-ray to r/o other pathology Order Duplex U/S to r/o DVT Will continue to monitor patient while in house Thank you for allowing us to participate in patient's care <Manny Myles D - Last Filed: 07/11/18 08:28> Meds - Medications Medications: Current Medications Amlodipine Besylate (Norvasc) 5 mg PO DAILY [facility] Last Admin: 07/10/18 09:30 Dose: 5 mg Dextrose (Dextrose 50% Inj) 0 ml IVP .STAT PRN; Protocol PRN Reason: Hypoglycemia Protocol Dextrose (Glutose 15) 0 gm PO ONCE PRN; Protocol PRN Reason: Hypoglycemia Protocol Famotidine (Pepcid) 20 mg PO BID [facility] Last Admin: 07/10/18 17:30 Dose: 20 mg Glucagon (Glucagen Diagnostic Kit) 0 mg IM STAT PRN; Protocol PRN Reason: Hypoglycemia Protocol Heparin Sodium (Porcine) (Heparin) 5,000 units SC Q8 [facility] Last Admin: 07/11/18 05:27 Dose: Not Given Hydralazine HCl (Apresoline) 10 mg IVP Q6H PRN PRN Reason: Systolic Blood Pressure Last Admin: 07/10/18 17:46 Dose: 10 mg Dextrose (Dextrose 5% In Water 1000 Ml) 1,000 mls @ 0 mls/hr IV .Q0M PRN; Protocol; Per Protocol PRN Reason: Hypoglycemia Protocol Ceftriaxone Sodium 1 gm/ (Sodium Chloride) 100 mls @ 100 mls/hr IVPB Q12H [facility] PRN Reason: Protocol Last Admin: 07/11/18 03:54 Dose: 100 mls/hr Insulin Aspart (Novolog) 0 unit SC ACHS [facility] PRN Reason: Protocol Last Admin: 07/11/18 08:05 Dose: 4 u Insulin Aspart (Novolog) 8 unit SC AC [facility] Last Admin: 07/11/18 08:05 Dose: 8 u Insulin Detemir (Levemir) 20 unit SC HS [facility] Last Admin: 07/10/18 21:30 Dose: 20 u Lisinopril (Zestril) 5 mg PO DAILY [facility] Last Admin: 07/10/18 11:46 Dose: 5 mg Saccharomyces Boulardii (Florastor) 250 mg PO BID [facility] Results - Vital Signs Recent Vital Signs: Last Vital Signs Temp 98.0 F 07/11/18 07:15 Pulse 103 H 07/11/18 08:12 Resp 20 07/11/18 07:15 BP 174/114 H 07/11/18 08:12 Pulse Ox 97 07/11/18 07:15 - Labs Result Diagrams: 07/11/18 06:59 07/11/18 06:59 Labs: Laboratory Results - last 24 hr 07/09/18 07/10/18 07/10/18 20:10 09:48 09:50 WBC RBC Hgb Hct MCV MCH MCHC RDW Plt Count MPV Neut % (Auto) Lymph % (Auto) Otero % (Auto) Eos % (Auto) Baso % (Auto) Neut # (Auto) Lymph # (Auto) Otero # (Auto) Eos # (Auto) Baso # (Auto) Sodium Potassium Chloride Carbon Dioxide Anion Gap BUN Creatinine Est GFR ( Amer) Est GFR (Non-Af Amer) POC Glucose (mg/dL) 57 L 97 Random Glucose Calcium Phosphorus Magnesium Total Bilirubin AST ALT Alkaline Phosphatase NT-Pro-B Natriuret Pep Total Protein Albumin Globulin Albumin/Globulin Ratio HIV 1&2 Ag/Ab, 4th Gen Nonreactive 07/10/18 07/10/18 07/11/18 11:21 16:13 06:59 WBC 4.0 L RBC 3.11 L Hgb 8.6 L Hct 25.6 L MCV 82.3 MCH 27.7 MCHC 33.7 RDW 16.1 H Plt Count 307 MPV 7.9 Neut % (Auto) 66.4 Lymph % (Auto) 23.1 Otero % (Auto) 7.5 Eos % (Auto) 1.7 Baso % (Auto) 1.3 Neut # (Auto) 2.7 Lymph # (Auto) 0.9 L Otero # (Auto) 0.3 Eos # (Auto) 0.1 Baso # (Auto) 0.1 Sodium Potassium Chloride Carbon Dioxide Anion Gap BUN Creatinine Est GFR ( Amer) Est GFR (Non-Af Amer) POC Glucose (mg/dL) 74 269 H Random Glucose Calcium Phosphorus Magnesium Total Bilirubin AST ALT Alkaline Phosphatase NT-Pro-B Natriuret Pep Total Protein Albumin Globulin Albumin/Globulin Ratio HIV 1&2 Ag/Ab, 4th Gen 07/11/18 06:59 WBC RBC Hgb Hct MCV MCH MCHC RDW Plt Count MPV Neut % (Auto) Lymph % (Auto) Otero % (Auto) Eos % (Auto) Baso % (Auto) Neut # (Auto) Lymph # (Auto) Otero # (Auto) Eos # (Auto) Baso # (Auto) Sodium 138 Potassium 5.0 Chloride 103 Carbon Dioxide 27 Anion Gap 13 BUN 21 H Creatinine 1.2 Est GFR ( Amer) > 60 Est GFR (Non-Af Amer) > 60 POC Glucose (mg/dL) Random Glucose 301 H Calcium 9.5 Phosphorus 4.1 Magnesium 1.8 Total Bilirubin 0.2 AST 30 ALT 37 Alkaline Phosphatase 129 H NT-Pro-B Natriuret Pep 373 Total Protein 7.2 Albumin 3.4 L Globulin 3.8 Albumin/Globulin Ratio 0.9 L HIV 1&2 Ag/Ab, 4th Gen Attending/Attestation - Attestation Notes (Text): 07/11/18 08:28 WAS CALLED TODAY AND WAS TOLD CONSULT WAS CANCELLED. WILL NO LONGER SEE PT
--- NOTE | 2018-07-10 10:48 | CT ---
Date of service: 07/09/2018 PROCEDURE: CT Abdomen and Pelvis with contrast HISTORY: diarrhea, abdominal pain COMPARISON: Comparison is made to the previous study dated 01/07/2018 TECHNIQUE: Contrast dose: 100 mL Visipaque 320. Axial and reformatted coronal and sagittal CT images of the abdomen and pelvis were obtained after IV and oral contrast administration Radiation dose: Total exam DLP = 265.88 mGy-cm. This CT exam was performed using one or more of the following dose reduction techniques: Automated exposure control, adjustment of the mA and/or kV according to patient size, and/or use of iterative reconstruction technique. FINDINGS: LOWER THORAX: There are trace pleural effusions seen bilaterally larger on the left. There is a trace pericardial effusion also noted. LIVER: The liver is mildly enlarged slightly heterogeneous without evidence of discrete mass. The portal vein is patent. GALLBLADDER AND BILE DUCTS: Unremarkable. PANCREAS: Unremarkable. No gross lesion or ductal dilatation. SPLEEN: Unremarkable. ADRENALS: Unremarkable. No mass. KIDNEYS AND URETERS: Unremarkable. No hydronephrosis. No solid mass. VASCULATURE: Unremarkable. No aortic aneurysm. BOWEL: There is mild diffuse small and large bowel wall thickening noted could be due to diffuse edema. There is no definite evidence of obstructing mass in the bowel. APPENDIX: No evidence of appendicitis. PERITONEUM: Small amount of free fluid in the abdomen and pelvis is again noted. LYMPH NODES: Mildly enlarged pelvic and left inguinal lymph nodes are seen. There is moderately enlarged lymph node versus conglomerate lymphadenopathy seen at the left inguinal region measures 4.2 centimeter in the transverse diameter. Mildly enlarged retroperitoneal lymph nodes are also noted. BLADDER: Mild urinary bladder wall thickening is noted. REPRODUCTIVE: Unremarkable. BONES: No acute fracture. OTHER FINDINGS: None. IMPRESSION: Moderate left inguinal and mild left lower pelvis lymphadenopathy of uncertain etiology. Mild urinary bladder wall thickening. Mild small and large bowel wall thickening noted could be due to soft tissue edema. Small ascites is noted in the abdomen and pelvis. Correlate clinically for infection or neoplasm etiology. Trace bilateral pleural effusions and pericardial effusion. Preliminary report was submitted by [facility].
--- NOTE | 2018-07-10 14:49 | US ---
Date of service: 07/10/2018 PROCEDURE: Ultrasound of the Bladder HISTORY: bladder wall thickening on ct COMPARISON: None available. TECHNIQUE: Sonographic evaluation of the bladder was performed. FINDINGS: Mild circumferential diffusely urinary bladder wall thickening measures up to 0.5 centimeter. No evidence of intraluminal debris. No calculus or gross mass lesion. No free fluid in pelvis. The prostate measures 3.6 x 2.8 x 3.6 centimeter with a total volume of 19.11 mL. Prevoid Volume: 560.38 cc. Post void residual: 13.94 cc. IMPRESSION: Mild diffuse urinary bladder wall thickening. No evidence of significant postvoid residual measures 13.94 cc. Normal size prostate with a total volume of 19.11 cc.
--- NOTE | 2018-07-10 14:53 | US ---
Date of service: 07/10/2018 HISTORY: ascities COMPARISON: None. TECHNIQUE: Sonographic evaluation of the abdomen. FINDINGS: LIVER: Measures 20.8 cm. Increased echogenicity of the liver parenchyma. No mass. No intrahepatic bile duct dilatation. GALLBLADDER: Unremarkable. No gallstones. COMMON BILE DUCT: Measures 4 mm. No stones. No dilatation. PANCREAS: Unremarkable as visualized. No mass. No ductal dilatation. RIGHT KIDNEY: Measures 10.8 x 6.1 x 5.8cm. Normal echogenicity. No calculus, mass, or hydronephrosis. There is a MK cyst in the midpole of the right kidney measures 0.5 x 0.6 x 0.7 centimeter. LEFT KIDNEY: Measures 10.8 x 6.1 x 5.8cm. Normal echogenicity. No calculus, mass, or hydronephrosis. SPLEEN: Normal in size and contour. No mass. AORTA: No aneurysmal dilatation. IVC: Unremarkable. OTHER FINDINGS: There is trace ascites noted in the upper abdomen. IMPRESSION: Trace amount of ascites in the upper abdomen. Hepatomegaly with diffuse increased echogenicity suggestive but nonspecific for hepatic steatosis.
--- NOTE | 2018-07-10 14:54 | CP.PCM.PN ---
Subjective - Date & Time of Evaluation Date of Evaluation: 07/10/18 Time of Evaluation: 15:27 - Subjective Subjective: Pt seen and examined at bedside. Pt reports no new complaints overnight. Pt reports resolution of abdominal pain and diarrhea. Pt reports normal frequency of urination. Pt denies CP, SOB, f/c, n/v. Objective - Vital Signs/Intake and Output Vital Signs (last 24 hours): Temp Pulse Resp BP Pulse Ox 98.2 F 99 H 20 168/110 H 99 07/10/18 07:35 07/10/18 12:07 07/10/18 07:35 07/10/18 07:35 07/10/18 07:35 Intake and Output: 07/10/18 07/10/18 06:59 18:59 Intake Total 1999 1240 Output Total 1200 Balance 1999 40 - Medications Medications: Current Medications Amlodipine Besylate (Norvasc) 5 mg PO DAILY [facility] Last Admin: 07/10/18 09:30 Dose: 5 mg Dextrose (Dextrose 50% Inj) 0 ml IV STAT PRN; Protocol PRN Reason: Hypoglycemia Protocol Dextrose (Glutose 15) 0 gm PO ONCE PRN; Protocol PRN Reason: Hypoglycemia Protocol Dextrose (Dextrose 50% Inj) 0 ml IVP .STAT PRN; Protocol PRN Reason: Hypoglycemia Protocol Dextrose (Glutose 15) 0 gm PO .ONCE PRN; Protocol PRN Reason: Hypoglycemia Protocol Dextrose (Dextrose 50% Inj) 0 ml IV STAT PRN; Protocol PRN Reason: Hypoglycemia Protocol Dextrose (Glutose 15) 0 gm PO ONCE PRN; Protocol PRN Reason: Hypoglycemia Protocol Famotidine (Pepcid) 20 mg PO BID [facility] Last Admin: 07/10/18 09:30 Dose: 20 mg Glucagon (Glucagen Diagnostic Kit) 0 mg IM STAT PRN; Protocol PRN Reason: Hypoglycemia Protocol Glucagon (Glucagen Diagnostic Kit) 0 mg IM .STAT PRN; Protocol PRN Reason: Hypoglycemia Protocol Glucagon (Glucagen Diagnostic Kit) 0 mg IM STAT PRN; Protocol PRN Reason: Hypoglycemia Protocol Heparin Sodium (Porcine) (Heparin) 5,000 units SC Q8 [facility] Last Admin: 07/10/18 13:24 Dose: Not Given Hydralazine HCl (Apresoline) 10 mg IVP Q6H PRN PRN Reason: Systolic Blood Pressure Dextrose (Dextrose 5% In Water 1000 Ml) 1,000 mls @ 0 mls/hr IV .Q0M PRN; Protocol; Per Protocol PRN Reason: Hypoglycemia Protocol Dextrose (Dextrose 5% In Water 1000 Ml) 1,000 mls @ 0 mls/hr IV .Q0M PRN; Protocol; Per Protocol PRN Reason: Hypoglycemia Protocol Dextrose (Dextrose 5% In Water 1000 Ml) 1,000 mls @ 0 mls/hr IV .Q0M PRN; Protocol; Per Protocol PRN Reason: Hypoglycemia Protocol Ceftriaxone Sodium 1 gm/ (Sodium Chloride) 100 mls @ 100 mls/hr IVPB Q12H [facility] PRN Reason: Protocol Last Admin: 07/10/18 03:22 Dose: 100 mls/hr Insulin Aspart (Novolog) 0 unit SC ACHS [facility] PRN Reason: Protocol Last Admin: 07/10/18 11:43 Dose: Not Given Insulin Aspart (Novolog) 8 unit SC AC [facility] Insulin Detemir (Levemir) 20 unit SC HS [facility] Lisinopril (Zestril) 5 mg PO DAILY [facility] Last Admin: 07/10/18 11:46 Dose: 5 mg - Labs Labs: 07/10/18 07:52 07/10/18 07:52 - Constitutional Appears: Well, Non-toxic, No Acute Distress - Head Exam Head Exam: ATRAUMATIC, NORMAL INSPECTION - Eye Exam Eye Exam: EOMI, Normal appearance. absent: Scleral icterus - ENT Exam ENT Exam: Mucous Membranes Moist - Neck Exam Neck Exam: absent: Thyromegaly - Respiratory Exam Respiratory Exam: Clear to Ausculation Bilateral, NORMAL BREATHING PATTERN. absent: Wheezes, Respiratory Distress - Cardiovascular Exam Cardiovascular Exam: RRR, +S1, +S2. absent: Murmur - GI/Abdominal Exam GI & Abdominal Exam: Normal Bowel Sounds. absent: Distended, Tenderness, Mass - Extremities Exam Additional comments: L foot wrapped for diabetic foot ulcer - Back Exam Back Exam: NORMAL INSPECTION - Neurological Exam Neurological Exam: Alert, Awake, CN II-XII Intact, Oriented x3 - Psychiatric Exam Psychiatric exam: Normal Affect, Normal Mood - Skin Skin Exam: Normal Color, Warm Assessment and Plan - Assessment and Plan (Free Text) Assessment: 28yo male admitted for uncontrolled DM type 1 and diabetic gastroparesis. Plan: Uncontrolled DM1 -Dr Minor consulted (endo): novolog 12U TID, levemir 24U HS -VBG sugar on admission >750-->500---> 240 today -ketones .7 -hgb A1C 11 -accuchecks ACHS -ISS-med risk -diabetic diet Anemia, chronic -hbg 8.1, was 8.3 -Low Iron 33, Low TIBC 234, Low % sat 14 -Iron will be given once infectious process is r/o Dehydration -resolved Uncontrolled HTN -Lisinopril 5mg PO daily -norvasc 5mg QD Diarrhea -resolved -all cultures and panels neg LLE lesions -x-ray left heel, r/o osteo: pending read Substance abuse -UDS -HIV Hyperkalemia -resolved Abd pain -resolved -CT abd: free fluid LLQ, mild pericardial effusion, L inguinal lymphnode moderate size, Bladder thickening -f/u Abd and Pelv u/s Nails -podiatry consult, Dr. Rojas Ppx hepain 5000sc Q8 pepcid 20mg BID
--- NOTE | 2018-07-10 15:42 | RAD ---
Date of service: 07/10/2018 PROCEDURE: Bilateral calcanei dated 07/10/2018. HISTORY: Rule out osteomyelitis. COMPARISON: Comparison made with prior radiographs of the left foot dated 09/16/2017. TECHNIQUE: Lateral and PA views of the left calcaneus performed. FINDINGS: Left calcaneus findings: Destructive changes of the talus and the bones of the midfoot with a disorganized appearing joint spaces consistent with Charcot's joint. Note however that the possibility of concomitant osteomyelitis cannot be excluded. Somewhat linear oriented calcifications seen within the plantar soft tissues subjacent anterior in the calcaneus nonspecific. Diffuse soft tissue swelling with joint effusion. . Consider followup MRI for further evaluation to assess for osteomyelitis. Right calcaneus findings: The right calcaneus and visualized portions of the talus as well as dorsal margins of the midfoot bones appear intact. No evidence of acute displaced fracture nor dislocation No obvious destructive changes. Vascular calcifications are present. Consider followup bulla MRI for further evaluation to assess for early osteomyelitis IMPRESSION: Impression left calcaneus: Destructive changes of the left talus and bones of the left midfoot all suggesting Charcot joint however the possibility of early osteomyelitis not excluded. Followup MRI recommended. Impression right calcaneus: No evidence of acute displaced fracture nor dislocation No obvious destructive changes seen at this time. Vascular calcifications are present. Consider followup MRI if early osteomyelitis suspected clinically.
--- NOTE | 2018-07-10 18:35 | PN ---
Copied To: Clover Minor MD Attending MD: Clover Minor MD DATE: 07/10/2018 ENDO FOLLOWUP NOTE LOCATION: In room 670. SUBJECTIVE: This is a 28-year-old male with recent uncontrolled type 1 insulin-dependent diabetes, presenting here with marked hyperglycemic accelerations on early ketosis and is now improving clinically and metabolically as noted thereof. In fact this morning because of variable oral intake, his glycemic levels have been in the low side of normal ranging from 74 to 97 mg/dL. LABORATORY DATA: His latest chemistry showed a BUN of 19, sodium 141, potassium 4.6, chloride 107, CO2 of 26, glucose 198, and creatinine 1.2. ASSESSMENT AND PLAN: So at this time we will modify his basal and bolus insulin regimen to adjust to the variability of his oral intake and lower the Levemir to 20 units subcutaneously at bedtime daily to start tonight. We will also lower his NovoLog to 8 units subcutaneously t.i.d. before meals to start today as ordered. We will modify the coverage scale to obviate hypoglycemia and detailed orders have been given. We will also finish off his normal saline infusion improved metabolically as noted thereof. We will obtain serial chemistries and supplement accordingly as needed. We will follow. Clover Minor MD
[2018-07-10] MEDS ORDERED: Insulin Detemir 100 units/ml Vial (Levemir) SC SCH (22:00)
[2018-07-11 07:15] LABS: BASO # 0.1 K/uL (0.0-0.2); BASO % 1.3 % (0.0-2.0); EOS # 0.1 K/uL (0.0-0.7); EOS % 1.7 % (0.0-4.0); HEMOGLOBIN 8.6 g/dL (12.0-18.0); LYMPH # 0.9 K/uL (1.0-4.3); LYMPH % 23.1 % (20.0-40.0); MEAN CELL VOLUME 82.3 fL (80.0-94.0); MEAN CORPUSCULAR HEMOGLOBIN 27.7 pg (27.0-31.0); MEAN CORPUSCULAR HGB CONC 33.7 g/dL (33.0-37.0); MEAN PLATELET VOLUME 7.9 fL (7.2-11.7); MONO # 0.3 K/uL (0.0-0.8); MONO % 7.5 % (0.0-10.0); NEUT # 2.7 K/uL (1.8-7.0); NEUT % 66.4 % (50.0-75.0); RBC 3.11 Mil/uL (4.40-5.90); RED CELL DISTRIBUTION WIDTH 16.1 % (11.5-14.5)
[2018-07-11 07:29] LABS: B-TYPE NATRIURETIC PEPTIDE 373 pg/mL (0-450)
[2018-07-11 07:41] LABS: ALB/GLOB RATIO 0.9 (1.0-2.1); ALBUMIN 3.4 g/dL (3.5-5.0); ALT/SGPT 37 U/L (21-72); AST/SGOT 30 U/L (17-59); BLOOD UREA NITROGEN 21 mg/dL (9-20); CALCIUM 9.5 mg/dl (8.6-10.4); GFR AFRICAN-AMERICAN > 60; GFR NON-AFRICAN AMERICAN > 60
[2018-07-11] MEDS: (Novolog) Insulin Aspart, Recombinant 100 u/ml 10 ml vial SC SCH ×5 (08:05→22:28)
--- NOTE | 2018-07-11 08:08 | CP.PCM.PN ---
<DelacruzRin - Last Filed: 07/11/18 16:14> Subjective - Date & Time of Evaluation Date of Evaluation: 07/11/18 Time of Evaluation: 08:20 - Subjective Subjective: Pt evaluated at bedside, no acute events overnight. Pt reports he is eager to leave as he has many personal issues to tend to. Pt reports he is tired due to poor sleep overnight. Pt denies chest pain, SOB, abd pain, nausea, vomiting, diarrhea, LE pain. Objective - Vital Signs/Intake and Output Vital Signs (last 24 hours): Temp Pulse Resp BP Pulse Ox 98.2 F 102 H 20 149/90 98 07/10/18 23:40 07/11/18 03:15 07/10/18 23:40 07/10/18 23:40 07/10/18 23:40 - Medications Medications: Current Medications Amlodipine Besylate (Norvasc) 5 mg PO DAILY [facility] Last Admin: 07/10/18 09:30 Dose: 5 mg Dextrose (Dextrose 50% Inj) 0 ml IVP .STAT PRN; Protocol PRN Reason: Hypoglycemia Protocol Dextrose (Glutose 15) 0 gm PO ONCE PRN; Protocol PRN Reason: Hypoglycemia Protocol Famotidine (Pepcid) 20 mg PO BID [facility] Last Admin: 07/10/18 17:30 Dose: 20 mg Glucagon (Glucagen Diagnostic Kit) 0 mg IM STAT PRN; Protocol PRN Reason: Hypoglycemia Protocol Heparin Sodium (Porcine) (Heparin) 5,000 units SC Q8 [facility] Last Admin: 07/11/18 05:27 Dose: Not Given Hydralazine HCl (Apresoline) 10 mg IVP Q6H PRN PRN Reason: Systolic Blood Pressure Last Admin: 07/10/18 17:46 Dose: 10 mg Dextrose (Dextrose 5% In Water 1000 Ml) 1,000 mls @ 0 mls/hr IV .Q0M PRN; Protocol; Per Protocol PRN Reason: Hypoglycemia Protocol Ceftriaxone Sodium 1 gm/ (Sodium Chloride) 100 mls @ 100 mls/hr IVPB Q12H [facility] PRN Reason: Protocol Last Admin: 07/11/18 03:54 Dose: 100 mls/hr Insulin Aspart (Novolog) 0 unit SC ACHS [facility] PRN Reason: Protocol Last Admin: 07/11/18 08:05 Dose: 4 u Insulin Aspart (Novolog) 8 unit SC AC [facility] Last Admin: 07/11/18 08:05 Dose: 8 u Insulin Detemir (Levemir) 20 unit SC HS [facility] Last Admin: 07/10/18 21:30 Dose: 20 u Lisinopril (Zestril) 5 mg PO DAILY [facility] Last Admin: 07/10/18 11:46 Dose: 5 mg Saccharomyces Boulardii (Florastor) 250 mg PO BID [facility] - Labs Labs: 07/11/18 06:59 07/11/18 06:59 - Constitutional Appears: Non-toxic, No Acute Distress - Head Exam Head Exam: ATRAUMATIC, NORMAL INSPECTION, NORMOCEPHALIC - Eye Exam Eye Exam: EOMI, Normal appearance - ENT Exam ENT Exam: Mucous Membranes Moist, Normal Exam - Neck Exam Neck Exam: Normal Inspection. absent: Lymphadenopathy - Respiratory Exam Respiratory Exam: Clear to Ausculation Bilateral, NORMAL BREATHING PATTERN. absent: Rhonchi, Wheezes - Cardiovascular Exam Cardiovascular Exam: Tachycardia, REGULAR RHYTHM, +S1, +S2. absent: Gallop, Murmur - GI/Abdominal Exam GI & Abdominal Exam: Distended, Soft, Normal Bowel Sounds. absent: Tenderness - Extremities Exam Extremities Exam: Normal Capillary Refill, Pedal Edema. absent: Calf Tenderness , Normal Inspection (LLE edematous, skin texture chenges, previous heel ulcer non erythematous. Nails thickened) - Neurological Exam Neurological Exam: Alert, Awake, Oriented x3 - Psychiatric Exam Psychiatric exam: Depressed, Normal Affect - Skin Skin Exam: Dry, Intact, Normal Color, Warm. absent: Erythema <Borker,Meghan V - Last Filed: 07/11/18 18:21> Objective - Vital Signs/Intake and Output Vital Signs (last 24 hours): Temp Pulse Resp BP Pulse Ox 98.7 F 104 H 20 158/109 H 98 07/11/18 15:14 07/11/18 15:14 07/11/18 15:14 07/11/18 15:14 07/11/18 15:14 Intake and Output: 07/11/18 07/11/18 06:59 18:59 Intake Total 400 Balance 400 - Medications Medications: Current Medications Amlodipine Besylate (Norvasc) 10 mg PO DAILY [facility] Amlodipine Besylate (Norvasc) 5 mg PO STAT [facility] Stop: 07/11/18 17:29 Dextrose (Dextrose 50% Inj) 0 ml IVP .STAT PRN; Protocol PRN Reason: Hypoglycemia Protocol Last Admin: 07/11/18 11:33 Dose: 25 ml Dextrose (Glutose 15) 0 gm PO ONCE PRN; Protocol PRN Reason: Hypoglycemia Protocol Famotidine (Pepcid) 20 mg PO BID [facility] Last Admin: 07/11/18 09:56 Dose: 20 mg Glucagon (Glucagen Diagnostic Kit) 0 mg IM STAT PRN; Protocol PRN Reason: Hypoglycemia Protocol Heparin Sodium (Porcine) (Heparin) 5,000 units SC Q8 [facility] Last Admin: 07/11/18 13:03 Dose: Not Given Dextrose (Dextrose 5% In Water 1000 Ml) 1,000 mls @ 0 mls/hr IV .Q0M PRN; Protocol; Per Protocol PRN Reason: Hypoglycemia Protocol Ceftriaxone Sodium 1 gm/ (Sodium Chloride) 100 mls @ 100 mls/hr IVPB Q12H [facility] PRN Reason: Protocol Last Admin: 07/11/18 03:54 Dose: 100 mls/hr Insulin Aspart (Novolog) 0 unit SC ACHS [facility] PRN Reason: Protocol Last Admin: 07/11/18 11:37 Dose: Not Given Insulin Aspart (Novolog) 8 unit SC BIDAC [facility] Insulin Detemir (Levemir) 30 unit SC HS [facility] Lisinopril (Zestril) 5 mg PO DAILY [facility] Last Admin: 07/11/18 09:56 Dose: 5 mg Saccharomyces Boulardii (Florastor) 250 mg PO BID [facility] Last Admin: 07/11/18 09:56 Dose: 250 mg - Labs Labs: 07/11/18 06:59 07/11/18 06:59 Attending/Attestation - Attestation I have personally seen and examined this patient.: Yes I have fully participated in the care of the patient.: Yes I have reviewed all pertinent clinical information, including history, physical exam and plan: Yes Notes (Text): Patient seen, examined and case discussed with day-time resident. Patient seen during lunch. Patient had an hypoglyemic episode this morning. Insulin adjusted by endocrinology. There was confusion over podiatry on consult. clarified with podiatry; this is a private patient of Dr. Manny Myles, podiatry. Apologize for the confusion over consult. Reculture blood cultures; suspect contamination int he first set. 1) Dehydration Assessment/Plan * Patient given 2 Liters of NS on admission. * Patient appears euvoluemic on exam. No episodes of diarrhea since first day 2) Uncontrolled Type 1 Diabetic Assessment/Plan * Patient had hypoglycemic event this morning. * Insulin regiment adjusted per endocrinology * Regiment: * Levemir 30 unit subqHS * Novolog 8 units subq BIDAC * Novolog subqACHS * Hypoglycemic protocol * Lisinopril 5mg PO daily 3) Uncontrolled Hypertension Assessment/Plan * increase norvasc 10mg PO daily * Lisinopril 5mg PO daily * start HCTZ 12.5mg PO daily 4) Anemia, chronic Assessment/Plan * hbg 8.3 on admission * iron: 33 * TIBC: 234 * iron saturation: 14 * ferritin: 115 5) Diarrhea Assessment/Plan * Likely due to uncontrolled diabetes * Resolved * Hepatitis panel is negative 6) Charcot Joint Assessment/Plan * Heel Xray (07/10/18): impression left calcaneus> destrictive changes of the left talus and bones of left midfoot suggestive of Charot joint. Right calcaneus : no evidence of acute displaced fracture nor dislocation. no obvious destructive changes seen at this time. Vascular calcifications are present * Ankle xray (07/11/18): bony destructive changes in the midfoot at the level of the anterior calcaneus as well as the posterior aspect of the navicular and cuboid bones. Possible involvement of the cuneiform bones and anterior talus. Heterotropic bone and or bony productive change within the soft tissues of the dorsal aspect of Talonavicaular joint space, psoterior to the distal tibia, and inferior to anterior calcaneus. Small lucency at the posterior inferior calcaneus. Widening of the medial ankle mortise/ 7) Bacteremia Assessment/Plan * Likelt contaminant since 12 bottles * I have repeated blood cultures today. 8) Abnormal EKG Assessment/Plan * EKG (1): V1: inversion * [facility] (2): NSR * probnp: normal * pending echo 9) Cannabis Use Assessment/Plan * Cannabis positive * HIV: negative 10) Hyperkalemia Assessment/Plan * Resolved * Lisinopril 5mg PO daily 11) Abdominal Distension Assessment/Plan * Moderate left inguinal and mild left lower pelvis lymphadenopathy. Mild urinary bladder thickening. Mild small and sahtish bowel wall thickening noted could be due to soft tissue edema. Small ascites is noted in the abdomen and pelvis. * No pain on examination * Abdominal US (07/10/18): trace amount of ascites in the upper abdomen. Hepatomegaly with diffuse increased echogenicity suggestive but nonspecific to hepatic steatosis * Check echocardiogram 12) Abnormal Bladder Thickening Assessment/Plan * Mild circumferential diffusely urinary bladder wall thickening measures ot 0.5 cm. No evidence of intraluminal debris. No calculus or gross mass lesion. No free fluid in plevis. No post void residual * Urine culture: no growth. * Rocephin 1 gram IV Q12H (active since 07/09/18) 13) prophylactic measure * Heparin 5000 units subq8H * Pepcid 20mg PO BID * Florastor 250mg PO BID * PT: home
--- NOTE | 2018-07-11 08:32 | CP.PCM.PN ---
Subjective - Date & Time of Evaluation Date of Evaluation: 07/11/18 Time of Evaluation: 08:32 - Subjective Subjective: NO LONGER WILL SEE PT. CONSULT WAS CANCELLED. Objective - Vital Signs/Intake and Output Vital Signs (last 24 hours): Temp Pulse Resp BP Pulse Ox 98.0 F 103 H 20 174/114 H 97 07/11/18 07:15 07/11/18 08:12 07/11/18 07:15 07/11/18 08:12 07/11/18 07:15 - Medications Medications: Current Medications Amlodipine Besylate (Norvasc) 5 mg PO DAILY [facility] Last Admin: 07/10/18 09:30 Dose: 5 mg Dextrose (Dextrose 50% Inj) 0 ml IVP .STAT PRN; Protocol PRN Reason: Hypoglycemia Protocol Dextrose (Glutose 15) 0 gm PO ONCE PRN; Protocol PRN Reason: Hypoglycemia Protocol Famotidine (Pepcid) 20 mg PO BID [facility] Last Admin: 07/10/18 17:30 Dose: 20 mg Glucagon (Glucagen Diagnostic Kit) 0 mg IM STAT PRN; Protocol PRN Reason: Hypoglycemia Protocol Heparin Sodium (Porcine) (Heparin) 5,000 units SC Q8 [facility] Last Admin: 07/11/18 05:27 Dose: Not Given Hydralazine HCl (Apresoline) 10 mg IVP Q6H PRN PRN Reason: Systolic Blood Pressure Last Admin: 07/10/18 17:46 Dose: 10 mg Dextrose (Dextrose 5% In Water 1000 Ml) 1,000 mls @ 0 mls/hr IV .Q0M PRN; Protocol; Per Protocol PRN Reason: Hypoglycemia Protocol Ceftriaxone Sodium 1 gm/ (Sodium Chloride) 100 mls @ 100 mls/hr IVPB Q12H [facility] PRN Reason: Protocol Last Admin: 07/11/18 03:54 Dose: 100 mls/hr Insulin Aspart (Novolog) 0 unit SC ACHS [facility] PRN Reason: Protocol Last Admin: 07/11/18 08:05 Dose: 4 u Insulin Aspart (Novolog) 8 unit SC AC [facility] Last Admin: 07/11/18 08:05 Dose: 8 u Insulin Detemir (Levemir) 20 unit SC HS [facility] Last Admin: 07/10/18 21:30 Dose: 20 u Lisinopril (Zestril) 5 mg PO DAILY [facility] Last Admin: 07/10/18 11:46 Dose: 5 mg Saccharomyces Boulardii (Florastor) 250 mg PO BID [facility] - Labs Labs: 07/11/18 06:59 07/11/18 06:59
--- NOTE | 2018-07-11 09:19 | RAD ---
Left ankle three views History: Left posterior ankle pain. Comparison: X-ray dated 07/10/2018 Findings: Bony destructive changes in the midfoot at the level of the anterior calcaneus as well as the posterior aspect of the navicular and cuboid bones. Possible involvement of the cuneiform bones and anterior talus. Heterotopic bone and or bony productive change within the soft tissues at the dorsal aspect of the talonavicular joint space, posterior to the distal tibia, and inferior to the anterior calcaneus. These findings may be the sequelae of a Charcot arthropathy versus postsurgical change versus sequelae of infectious and or inflammatory changes. Clinical correlation. Small lucency at the posterior inferior calcaneus, nonspecific. Clinical correlation. Widening of the medial ankle mortise measuring up to 7 millimeters. Prominent bony productive change and or cortical hypertrophy along the lateral cortex of the distal fibula. This may be the sequelae of inflammatory and or infectious changes. Clinical correlation. Medial and lateral malleolar soft tissue swelling. Impression: Bony destructive changes in the midfoot at the level of the anterior calcaneus as well as the posterior aspect of the navicular and cuboid bones. Possible involvement of the cuneiform bones and anterior talus. Heterotopic bone and or bony productive change within the soft tissues at the dorsal aspect of the talonavicular joint space, posterior to the distal tibia, and inferior to the anterior calcaneus. These findings may be the sequelae of a Charcot arthropathy versus postsurgical change versus sequelae of infectious and or inflammatory changes. Clinical correlation. Small lucency at the posterior inferior calcaneus, nonspecific. Clinical correlation. Widening of the medial ankle mortise measuring up to 7 millimeters. Prominent bony productive change and or cortical hypertrophy along the lateral cortex of the distal fibula. This may be the sequelae of inflammatory and or infectious changes. Clinical correlation. Medial and lateral malleolar soft tissue swelling.
[2018-07-11] MEDS: Saccharomyces Boulardi 250 mg Cap PO SCH ×2 (09:56→17:31)
[2018-07-11] MEDS ORDERED: (Novolog) Insulin Aspart, Recombinant 100 u/ml 10 ml vial SC SCH ×3 (11:30→16:30)
[2018-07-11] MEDS: Insulin Detemir 100 units/ml Vial (Levemir) SC SCH (22:27)
--- NOTE | 2018-07-12 00:08 | CP.PCM.PN ---
<Emre Jhaveri L - Last Filed: 07/12/18 00:26> Subjective - Date & Time of Evaluation Date of Evaluation: 07/12/18 Time of Evaluation: 00:04 - Subjective Subjective: Resident Note for Hospitalist Service Patient examined at bedside. No acute events overnight. Patient states he has been eating and drinking well. Offers no complaints at this time. Denies headache, chest pain, shortness of breath, abdominal pain, dysuria. Objective - Vital Signs/Intake and Output Vital Signs (last 24 hours): Temp Pulse Resp BP Pulse Ox 98.7 F 104 H 20 154/90 H 98 07/11/18 15:14 07/11/18 20:01 07/11/18 18:49 07/11/18 18:49 07/11/18 15:14 Intake and Output: 07/11/18 07/12/18 18:59 06:59 Intake Total 400 700 Output Total 900 Balance 400 -200 - Medications Medications: Current Medications Amlodipine Besylate (Norvasc) 10 mg PO DAILY [facility] Dextrose (Dextrose 50% Inj) 0 ml IVP .STAT PRN; Protocol PRN Reason: Hypoglycemia Protocol Last Admin: 07/11/18 11:33 Dose: 25 ml Dextrose (Glutose 15) 0 gm PO ONCE PRN; Protocol PRN Reason: Hypoglycemia Protocol Famotidine (Pepcid) 20 mg PO BID [facility] Last Admin: 07/11/18 17:32 Dose: 20 mg Glucagon (Glucagen Diagnostic Kit) 0 mg IM STAT PRN; Protocol PRN Reason: Hypoglycemia Protocol Heparin Sodium (Porcine) (Heparin) 5,000 units SC Q8 [facility] Last Admin: 07/11/18 22:28 Dose: Not Given Hydrochlorothiazide (Microzide) 12.5 mg PO DAILY [facility] Last Admin: 07/11/18 18:52 Dose: 12.5 mg Dextrose (Dextrose 5% In Water 1000 Ml) 1,000 mls @ 0 mls/hr IV .Q0M PRN; Protocol; Per Protocol PRN Reason: Hypoglycemia Protocol Ceftriaxone Sodium 1 gm/ (Sodium Chloride) 100 mls @ 100 mls/hr IVPB Q12H [facility] PRN Reason: Protocol Last Admin: 07/11/18 17:00 Dose: 100 mls/hr Insulin Aspart (Novolog) 0 unit SC ACHS [facility] PRN Reason: Protocol Last Admin: 07/11/18 22:28 Dose: 2 u Insulin Aspart (Novolog) 10 unit SC AC [facility] Insulin Detemir (Levemir) 30 unit SC HS [facility] Last Admin: 07/11/18 22:27 Dose: 30 units Lisinopril (Zestril) 5 mg PO DAILY [facility] Last Admin: 07/11/18 09:56 Dose: 5 mg Saccharomyces Boulardii (Florastor) 250 mg PO BID [facility] Last Admin: 07/11/18 17:31 Dose: 250 mg - Labs Labs: 07/11/18 06:59 07/11/18 06:59 - Additional Findings Additional findings: - Constitutional Appears: Non-toxic, No Acute Distress - Head Exam Head Exam: ATRAUMATIC, NORMAL INSPECTION - Eye Exam Eye Exam: EOMI, Normal appearance - ENT Exam ENT Exam: Mucous Membranes Moist, Normal Exam - Neck Exam Neck Exam: Normal Inspection - Respiratory Exam Respiratory Exam: Clear to Ausculation Bilateral, NORMAL BREATHING PATTERN - Cardiovascular Exam Cardiovascular Exam: REGULAR RHYTHM, +S1, +S2 - GI/Abdominal Exam GI & Abdominal Exam: Soft, Normal Bowel Sounds. absent: Tenderness - Extremities Exam Extremities Exam: Normal Capillary Refill, Pedal Edema - Neurological Exam Neurological Exam: Alert, Awake, Oriented x3 - Psychiatric Exam Psychiatric exam: Depressed, Normal Affect - Skin Skin Exam: Dry, Intact, Normal Color Assessment and Plan - Assessment and Plan (Free Text) Plan: Type 1 DM - Endocrinology consulted. Recs appreciated. - Levemir 30 unit subqHS - Novolog 8 units subq BIDAC - Novolog subqACHS - Hypoglycemic protocol - Dietitian referral Hypertension - Norvasc 10mg PO daily - Lisinopril 5mg PO daily - HCTZ 12.5mg PO daily Anemia (chronic) - Hgb stable - Iron studies show iron 33, TIBC 234, iron saturation 14, ferritin 115 Charcot joint - Heel xray (07/10/18) shows impression left calcaneus destructive changes of the left talus and bones of left midfoot suggestive of Charcot joint. Right calcaneus: no evidence of acute displaced fracture nor dislocation. no obvious destructive changes seen at this time. Vascular calcifications are present. - Ankle xray (07/11/18) shows bony destructive changes in the midfoot at the level of the anterior calcaneus as well as the posterior aspect of the navicular and cuboid bones. Possible involvement of the cuneiform bones and anterior talus. Heterotropic bone and or bony productive change within the soft tissues of the dorsal aspect of Talonavicaular joint space, psoterior to the distal tibia, and inferior to anterior calcaneus. Small lucency at the posterior inferior calcaneus. Widening of the medial ankle mortise. - Podiatry consulted. Appreciate recs. Bacteremia - 07/09 blood culture no growth x1, gram positive cocci x1 - 07/09 urine culture shows no growth - Followup repeat blood cultures Abnormal EKG - EKG (1) shows inversion in V1 - EKG (2) shows NSR - Pro-bnp normal - Followup ECHO Substance abuse - UDS positive for cannabinoids - HIV negative Hyperkalemia- resolved - Continue to monitor and replete - Lisinopril 5mg PO daily Abdominal distension - Moderate left inguinal and mild left lower pelvis lymphadenopathy. Mild urinary bladder thickening. Mild small and sathish bowel wall thickening noted could be due to soft tissue edema. Small ascites is noted in the abdomen and pelvis. - No pain on examination - Abdominal US (07/10/18): trace amount of ascites in the upper abdomen. Hepatomegaly with diffuse increased echogenicity suggestive but nonspecific to hepatic steatosis - Followup ECHO Abnormal bladder thickening - Mild circumferential diffusely urinary bladder wall thickening measures ot 0.5 cm. No evidence of intraluminal debris. No calculus or gross mass lesion. No free fluid in plevis. No post void residual - Urine culture shows no growth - Rocephin 1 gram IV Q12H (started 07/09/18) PPX - Heparin 5000 units subq8H - Pepcid 20mg PO BID - Florastor 250mg PO BID Emre Jhaveri PGY-1 <Meghan Crouch V - Last Filed: 07/12/18 10:16> Objective - Vital Signs/Intake and Output Vital Signs (last 24 hours): Temp Pulse Resp BP Pulse Ox 98.1 F 98 H 20 146/96 H 97 07/12/18 07:50 07/12/18 08:52 07/12/18 07:50 07/12/18 07:50 07/12/18 07:50 Intake and Output: 07/12/18 07/12/18 06:59 18:59 Intake Total 700 Output Total 900 Balance -200 - Medications Medications: Current Medications Amlodipine Besylate (Norvasc) 10 mg PO DAILY [facility] Last Admin: 07/12/18 09:31 Dose: 10 mg Bisacodyl (Dulcolax) 5 mg PO ONCE ONE Stop: 07/12/18 10:03 Dextrose (Dextrose 50% Inj) 0 ml IVP .STAT PRN; Protocol PRN Reason: Hypoglycemia Protocol Last Admin: 07/11/18 11:33 Dose: 25 ml Dextrose (Glutose 15) 0 gm PO ONCE PRN; Protocol PRN Reason: Hypoglycemia Protocol Docusate Sodium (Colace) 100 mg PO BID [facility] Famotidine (Pepcid) 20 mg PO BID [facility] Last Admin: 07/12/18 09:31 Dose: 20 mg Glucagon (Glucagen Diagnostic Kit) 0 mg IM STAT PRN; Protocol PRN Reason: Hypoglycemia Protocol Heparin Sodium (Porcine) (Heparin) 5,000 units SC Q8 [facility] Last Admin: 07/12/18 05:48 Dose: Not Given Hydrochlorothiazide (Microzide) 12.5 mg PO DAILY [facility] Last Admin: 07/12/18 09:31 Dose: 12.5 mg Dextrose (Dextrose 5% In Water 1000 Ml) 1,000 mls @ 0 mls/hr IV .Q0M PRN; Protocol; Per Protocol PRN Reason: Hypoglycemia Protocol Ceftriaxone Sodium 1 gm/ (Sodium Chloride) 100 mls @ 100 mls/hr IVPB Q12H [facility] PRN Reason: Protocol Last Admin: 07/12/18 03:42 Dose: 100 mls/hr Insulin Aspart (Novolog) 0 unit SC ACHS [facility] PRN Reason: Protocol Last Admin: 07/12/18 08:00 Dose: Not Given Insulin Aspart (Novolog) 10 unit SC AC [facility] Last Admin: 07/12/18 08:30 Dose: 10 units Insulin Detemir (Levemir) 30 unit SC HS [facility] Last Admin: 07/11/18 22:27 Dose: 30 units Lisinopril (Zestril) 5 mg PO DAILY [facility] Last Admin: 07/12/18 09:31 Dose: 5 mg Saccharomyces Boulardii (Florastor) 250 mg PO BID [facility] Last Admin: 07/12/18 09:31 Dose: 250 mg - Labs Labs: 07/12/18 07:58 07/12/18 07:58 Attending/Attestation - Attestation I have personally seen and examined this patient.: Yes I have fully participated in the care of the patient.: Yes I have reviewed all pertinent clinical information, including history, physical exam and plan: Yes Notes (Text): Patient seen, examined this morning. Patient reports he is comfortable at bedside. Patient reports he has not had a bowel movement since admission when he had diarrhea. He denies chest pain, denies palpitations, and reports he is feeling better. We are awaiting blood cultures from 07/11/18 given coagulase negative Staph noted in 1/2 bottles but I do suspect contaminate. Sugar per CMP improved to 124 this AM. Will start stool softeners and dose of Ducolax X1. Will monitor blood pressure in light of elevated heart rate prior to starting additional agents. Assessment/Plan 1) Dehydration-->resolved Assessment/Plan * Patient given 2 Liters of NS on admission. * Patient appears euvoluemic on exam. No episodes of diarrhea since first day 2) Uncontrolled Type 1 Diabetic Assessment/Plan * Patient had hypoglycemic event 07/11/18 * Insulin regiment adjusted per endocrinology * Regiment: * Levemir 30 unit subqHS * Novolog 10 units subq AC * Novolog subqACHS * Hypoglycemic protocol * Lisinopril 5mg PO daily 3) Uncontrolled Hypertension Assessment/Plan * Norvasc 10mg PO daily * Lisinopril 5mg PO daily * HCTZ 12.5mg PO daily 4) Anemia, chronic Assessment/Plan * hbg 8.3 on admission * iron: 33 * TIBC: 234 * iron saturation: 14 * ferritin: 115 5) Diarrhea-->resolved Assessment/Plan * Likely due to uncontrolled diabetes * Resolved * Hepatitis panel is negative 6) Charcot Joint Assessment/Plan * Heel Xray (07/10/18): impression left calcaneus> destrictive changes of the left talus and bones of left midfoot suggestive of Charot joint. Right calcaneus : no evidence of acute displaced fracture nor dislocation. no obvious destructive changes seen at this time. Vascular calcifications are present * Ankle xray (07/11/18): bony destructive changes in the midfoot at the level of the anterior calcaneus as well as the posterior aspect of the navicular and cuboid bones. Possible involvement of the cuneiform bones and anterior talus. Heterotropic bone and or bony productive change within the soft tissues of the dorsal aspect of Talonavicaular joint space, psoterior to the distal tibia, and inferior to anterior calcaneus. Small lucency at the posterior inferior calcaneus. Widening of the medial ankle mortise/ 7) Bacteremia Assessment/Plan * Likely contaminant since 11/25 bottles * I have repeated blood cultures 07/11/18 8) Abnormal EKG Assessment/Plan * EKG (1): V1: inversion * [facility] (2): NSR * probnp: normal * pending echo 9) Cannabis Use Assessment/Plan * Cannabis positive * HIV: negative 10) Hyperkalemia-->resolved Assessment/Plan * Resolved * Lisinopril 5mg PO daily 11) Abdominal Distension Assessment/Plan * Moderate left inguinal and mild left lower pelvis lymphadenopathy. Mild urinary bladder thickening. Mild small and sathish bowel wall thickening noted could be due to soft tissue edema. Small ascites is noted in the abdomen and pelvis.-->patient is on Rocephin to cov * No pain on examination * Abdominal US (07/10/18): trace amount of ascites in the upper abdomen. Hepatomegaly with diffuse increased echogenicity suggestive but nonspecific to hepatic steatosis * Check echocardiogram 12) Abnormal Bladder Thickening Assessment/Plan * Mild circumferential diffusely urinary bladder wall thickening measures ot 0.5 cm. No evidence of intraluminal debris. No calculus or gross mass lesion. No free fluid in plevis. No post void residual * Urine culture: no growth. * Rocephin 1 gram IV Q daily (active since 07/09/18) 13) Constipation Assessment/Plan * Colace 100mg PO BID * Ducloax 5mg PO X1. 14) prophylactic measure * Heparin 5000 units subq8H * Pepcid 20mg PO BID * Florastor 250mg PO BID * PT: home
[2018-07-12] MEDS ORDERED: (Novolog) Insulin Aspart, Recombinant 100 u/ml 10 ml vial SC ONE (02:43)
[2018-07-12] MEDS: (Novolog) Insulin Aspart, Recombinant 100 u/ml 10 ml vial SC SCH ×7 (08:00→22:05)
[2018-07-12 08:11] LABS: BASO # 0.1 K/uL (0.0-0.2); EOS # 0.1 K/uL (0.0-0.7); EOS % 1.7 % (0.0-4.0); HEMOGLOBIN 8.7 g/dL (12.0-18.0); LYMPH # 1.3 K/uL (1.0-4.3); LYMPH % 25.1 % (20.0-40.0); MEAN CELL VOLUME 82.1 fL (80.0-94.0); MEAN CORPUSCULAR HEMOGLOBIN 27.8 pg (27.0-31.0); MEAN CORPUSCULAR HGB CONC 33.8 g/dL (33.0-37.0); MEAN PLATELET VOLUME 7.6 fL (7.2-11.7); MONO # 0.4 K/uL (0.0-0.8); MONO % 7.5 % (0.0-10.0); NEUT # 3.5 K/uL (1.8-7.0); NEUT % 64.7 % (50.0-75.0); RBC 3.12 Mil/uL (4.40-5.90); RED CELL DISTRIBUTION WIDTH 15.9 % (11.5-14.5); WHITE BLOOD COUNT 5.3 K/uL (4.8-10.8)
[2018-07-12 08:34] LABS: ALB/GLOB RATIO 0.9 (1.0-2.1); ALBUMIN 3.5 g/dL (3.5-5.0); ALT/SGPT 35 U/L (21-72); AST/SGOT 29 U/L (17-59); BLOOD UREA NITROGEN 28 mg/dL (9-20); CALCIUM 9.6 mg/dl (8.6-10.4); GFR AFRICAN-AMERICAN > 60; GFR NON-AFRICAN AMERICAN > 60
[2018-07-12] MEDS: Saccharomyces Boulardi 250 mg Cap PO SCH ×2 (09:31→17:51)
[2018-07-12] MEDS ORDERED: Bisacodyl 5mg EC Tab PO ONE (10:02)
--- NOTE | 2018-07-12 14:26 | PN ---
Copied To: Clover Minor MD Attending MD: Clover Minor MD DATE: 07/12/2018 ENDO FOLLOWUP NOTE LOCATION: In room 670. SUBJECTIVE: This is a 28-year-old male with recent uncontrolled type 1 insulin-dependent diabetes presenting here with marked hyperglycemic accelerations and early ketosis and he is now improving both clinically and metabolically as noted thereof. His glucose levels overnight have ranged from 269 mg/dL at bedtime with the fasting glucose of 124 mg/dL today. His chemistries show a BUN of 28, sodium 140, potassium 4.8, chloride 104, CO2 28, glucose 124, and creatinine 1.4. So at this time, we will continue to modify basal and bolus insulin regimen to allow for dose of and keep him under Levemir given at 30 units subcutaneously at bedtime daily as ordered. We will also continue to modify the higher dosing of the Novolog given as 10 units subcutaneously t.i.d. before meals as given. We will continue the low dose correction scale using NovoLog insulin as ordered. We will follow and advise accordingly. Clover Minor MD
--- NOTE | 2018-07-12 15:43 | CP.PCM.PN ---
Subjective - Date & Time of Evaluation Date of Evaluation: 07/12/18 Time of Evaluation: 15:33 - Subjective Subjective: Podiatry Consult Note for Dr. Myles 28 yo male patient seen and evaluated for left foot pain and swelling. Patient states that he has been a diabetic since he was 14 years old and continues to have problems associated with diabetes. He states that he wants to get better as soon as possible so that he may get back to his new job. He states that the left leg swelling has decreased and feels better than it did yesterday. Denies any new pedal complaints. Denies N/V/F/SOB/CP. Objective - Vital Signs/Intake and Output Vital Signs (last 24 hours): Temp Pulse Resp BP Pulse Ox 98.1 F 103 H 20 146/96 H 97 07/12/18 07:50 07/12/18 12:00 07/12/18 07:50 07/12/18 07:50 07/12/18 07:50 Intake and Output: 07/12/18 07/12/18 06:59 18:59 Intake Total 700 Output Total 900 Balance -200 - Medications Medications: Current Medications Amlodipine Besylate (Norvasc) 10 mg PO DAILY [facility] Last Admin: 07/12/18 09:31 Dose: 10 mg Dextrose (Dextrose 50% Inj) 0 ml IVP .STAT PRN; Protocol PRN Reason: Hypoglycemia Protocol Last Admin: 07/11/18 11:33 Dose: 25 ml Dextrose (Glutose 15) 0 gm PO ONCE PRN; Protocol PRN Reason: Hypoglycemia Protocol Docusate Sodium (Colace) 100 mg PO BID [facility] Last Admin: 07/12/18 10:31 Dose: 100 mg Famotidine (Pepcid) 20 mg PO BID [facility] Last Admin: 07/12/18 09:31 Dose: 20 mg Glucagon (Glucagen Diagnostic Kit) 0 mg IM STAT PRN; Protocol PRN Reason: Hypoglycemia Protocol Heparin Sodium (Porcine) (Heparin) 5,000 units SC Q8 [facility] Last Admin: 07/12/18 05:48 Dose: Not Given Dextrose (Dextrose 5% In Water 1000 Ml) 1,000 mls @ 0 mls/hr IV .Q0M PRN; Protocol; Per Protocol PRN Reason: Hypoglycemia Protocol Ceftriaxone Sodium 1 gm/ (Sodium Chloride) 100 mls @ 200 mls/hr IVPB DAILY [facility] PRN Reason: Protocol Insulin Aspart (Novolog) 0 unit SC ACHS [facility] PRN Reason: Protocol Last Admin: 07/12/18 11:53 Dose: Not Given Insulin Aspart (Novolog) 10 unit SC AC [facility] Last Admin: 07/12/18 11:53 Dose: Not Given Insulin Detemir (Levemir) 30 unit SC HS [facility] Last Admin: 07/11/18 22:27 Dose: 30 units Lisinopril (Zestril) 5 mg PO DAILY [facility] Last Admin: 07/12/18 09:31 Dose: 5 mg Saccharomyces Boulardii (Florastor) 250 mg PO BID [facility] Last Admin: 07/12/18 09:31 Dose: 250 mg - Labs Labs: 07/12/18 07:58 07/12/18 07:58 - Constitutional Appears: Well, Non-toxic, No Acute Distress - Head Exam Head Exam: ATRAUMATIC, NORMOCEPHALIC - Extremities Exam Additional comments: VASC: DP and PT 2/4, temperature gradient warm to warm to bilateral lower extremity, CFT < 3 seconds, edema noted to the left lower extremity ORTHO: MMT is 5/5 in all four compartments, collapsed arch on let NEURO: gross sensation diminished, protection sensation slightly diminished DERM: Hyperkeratotic elevated lesion noted to the medial dorsum left foot at the level of the 1st metatarsal base. No opening, no erythema, no streaking, no purulence, no clinical signs of infection. Completely healed ulceration with mixture of hypopigmented and hyperpigmented skin noted to the posterior distal leg approximately 12 cm in length. Xerosis noted to lower extremity with dystrophic nails. - Neurological Exam Neurological Exam: Alert, Awake, Oriented x3 - Psychiatric Exam Psychiatric exam: Normal Affect, Normal Mood Assessment and Plan - Assessment and Plan (Free Text) Assessment: 28 yo male patient seen and evaluated for increase swelling and pain to left foot Plan: Patient seen and examined with all questions and concerns addressed Discussed patient with Dr. Shameka Mayer, labs, chart reviewed; afebrile, absent leukocytosis Duplex U/S ordered to r/o DVT Ankle and calcaneal x-rays reviewed; destructive changes to talus and bones of the midfoot consistent with Charcot Strict NWB to left lower extremity at this time Pending results of U/S, patient to follow up as outpatient in Podiatry Clinic for further treatment of Charcot
[2018-07-12] MEDS ORDERED: (Novolog) Insulin Aspart, Recombinant 100 u/ml 10 ml vial SC SCH (16:46)
[2018-07-12 17:03] VITALS: O2SAT 100
[2018-07-12] MEDS ORDERED: Metoprolol 1 mg/ml Inj IVP PRN (21:57)
[2018-07-12] MEDS: Insulin Detemir 100 units/ml Vial (Levemir) SC SCH (22:04)
[2018-07-13 07:21] LABS: BASO # 0.1 K/uL (0.0-0.2); BASO % 1.3 % (0.0-2.0); EOS # 0.1 K/uL (0.0-0.7); EOS % 2.1 % (0.0-4.0); HEMOGLOBIN 9.3 g/dL (12.0-18.0); LYMPH # 1.4 K/uL (1.0-4.3); LYMPH % 28.8 % (20.0-40.0); MEAN CELL VOLUME 82.5 fL (80.0-94.0); MEAN CORPUSCULAR HEMOGLOBIN 27.9 pg (27.0-31.0); MEAN CORPUSCULAR HGB CONC 33.8 g/dL (33.0-37.0); MEAN PLATELET VOLUME 7.5 fL (7.2-11.7); MONO # 0.3 K/uL (0.0-0.8); MONO % 7.2 % (0.0-10.0); NEUT # 2.9 K/uL (1.8-7.0); NEUT % 60.6 % (50.0-75.0); RBC 3.34 Mil/uL (4.40-5.90); WHITE BLOOD COUNT 4.7 K/uL (4.8-10.8)
[2018-07-13 07:53] LABS: ALB/GLOB RATIO 0.9 (1.0-2.1); ALBUMIN 3.8 g/dL (3.5-5.0); ALT/SGPT 38 U/L (21-72); AST/SGOT 28 U/L (17-59); BLOOD UREA NITROGEN 32 mg/dL (9-20); CALCIUM 9.1 mg/dl (8.6-10.4); GFR AFRICAN-AMERICAN > 60; GFR NON-AFRICAN AMERICAN > 60
[2018-07-13] MEDS: (Novolog) Insulin Aspart, Recombinant 100 u/ml 10 ml vial SC SCH ×6 (08:06→17:30)
--- NOTE | 2018-07-13 08:09 | CARD ---
APPROVED REPORT Date of service: 07/10/2018 EKG Measurement Heart [id number] MD [id number] <Conclusion> Normal sinus rhythm Normal ECG
--- NOTE | 2018-07-13 08:35 | CP.PCM.PN ---
Subjective - Date & Time of Evaluation Date of Evaluation: 07/13/18 Time of Evaluation: 08:34 - Subjective Subjective: Podiatry Progress Note- Dr. Myles 28 yo male patient seen and evaluated fot Patient states that he has been a diabetic since he was 14 years old and continues to have problems associated with diabetes. He states that he wants to get better as soon as possible so that he may get back to his new job. He states that the left leg swelling has decreased and feels better than it did yesterday. Denies any new pedal complaints. Denies N/V/F/SOB/CP. Objective - Vital Signs/Intake and Output Vital Signs (last 24 hours): Temp Pulse Resp BP Pulse Ox 98.2 F 109 H 18 137/93 H 100 07/12/18 23:50 07/13/18 04:14 07/12/18 23:50 07/12/18 23:50 07/12/18 23:50 Intake and Output: 07/13/18 07/13/18 06:59 18:59 Intake Total 500 Balance 500 - Medications Medications: Current Medications Amlodipine Besylate (Norvasc) 10 mg PO DAILY [facility] Last Admin: 07/12/18 09:31 Dose: 10 mg Dextrose (Dextrose 50% Inj) 0 ml IVP .STAT PRN; Protocol PRN Reason: Hypoglycemia Protocol Last Admin: 07/11/18 11:33 Dose: 25 ml Dextrose (Glutose 15) 0 gm PO ONCE PRN; Protocol PRN Reason: Hypoglycemia Protocol Docusate Sodium (Colace) 100 mg PO BID [facility] Last Admin: 07/12/18 17:51 Dose: Not Given Famotidine (Pepcid) 20 mg PO BID [facility] Last Admin: 07/12/18 17:51 Dose: 20 mg Glucagon (Glucagen Diagnostic Kit) 0 mg IM STAT PRN; Protocol PRN Reason: Hypoglycemia Protocol Heparin Sodium (Porcine) (Heparin) 5,000 units SC Q8 [facility] Last Admin: 07/13/18 05:32 Dose: Not Given Dextrose (Dextrose 5% In Water 1000 Ml) 1,000 mls @ 0 mls/hr IV .Q0M PRN; Protocol; Per Protocol PRN Reason: Hypoglycemia Protocol Ceftriaxone Sodium 1 gm/ (Sodium Chloride) 100 mls @ 200 mls/hr IVPB DAILY [facility] PRN Reason: Protocol Insulin Aspart (Novolog) 0 unit SC ACHS [facility] PRN Reason: Protocol Last Admin: 07/13/18 08:07 Dose: Not Given Insulin Aspart (Novolog) 8 unit SC AC [facility] Last Admin: 07/13/18 08:06 Dose: 8 units Insulin Detemir (Levemir) 30 unit SC HS [facility] Last Admin: 07/12/18 22:04 Dose: 30 units Lisinopril (Zestril) 5 mg PO DAILY [facility] Last Admin: 07/12/18 09:31 Dose: 5 mg Metoprolol Tartrate (Lopressor) 2.5 mg IVP Q6H PRN PRN Reason: Systolic Blood Pressure Saccharomyces Boulardii (Florastor) 250 mg PO BID [facility] Last Admin: 07/12/18 17:51 Dose: 250 mg - Labs Labs: 07/13/18 07:07 07/13/18 07:07 - Constitutional Appears: Well, Non-toxic, No Acute Distress - Extremities Exam Extremities Exam: absent: Calf Tenderness Additional comments: VASC: DP and PT 2/4, temperature gradient warm to warm to bilateral lower extremity, CFT < 3 seconds, edema noted to the left lower extremity ORTHO: MMT is 5/5 in all four compartments, collapsed arch on left NEURO: gross sensation diminished, protection sensation slightly diminished DERM: Hyperkeratotic elevated lesion noted to the medial dorsum left foot at the level of the 1st metatarsal base. No opening, no erythema, no streaking, no purulence, no clinical signs of infection. Completely healed ulceration with mixture of hypopigmented and hyperpigmented skin noted to the posterior distal leg approximately 12 cm in length. Xerosis noted to lower extremity with dystrophic nails. - Neurological Exam Neurological Exam: Alert, Awake, Oriented x3 Assessment and Plan - Assessment and Plan (Free Text) Assessment: 28 yo male patient with left foot Charcot Plan: Patient seen and examined with all questions and concerns addressed Discussed plan in detail with attending Dr. Myles Vitals, labs, chart reviewed; afebrile, absent leukocytosis Duplex U/S ordered - have not been taken Ankle and calcaneal x-rays reviewed; destructive changes to talus and bones of the midfoot consistent with Charcot Strict NWB to left lower extremity at this time Pending results of U/S, patient to follow up as outpatient i with Dr. Myles or Podiatry Clinic for further treatment of Charcot
--- NOTE | 2018-07-13 09:10 | PN ---
Copied To: Clover Minor MD Attending MD: Clover Minor MD DATE: 07/11/2018 ENDO FOLLOWUP NOTE LOCATION: In room 670. SUBJECTIVE: This is a 28-year-old male with recent uncontrolled type 1 insulin-dependent diabetes, presenting here with marked hyperglycemic accelerations and early ketosis and has since then improved clinically and metabolically with vigorous IV hydration and intensive insulin therapy as given. His oral intake; however, remains variable with supervening glycemic fluctuations as noted overnight and the glucose levels have ranged from 269 to 301 mg/dL. LABORATORY DATA: His latest chemistries today showed a BUN of 21, sodium 138, potassium 5, chloride 103, CO2 of 27, glucose 301, and creatinine 1.2. ASSESSMENT AND PLAN: So at this time, we will modify once again his basal and bolus insulin regimen and increase the NovoLog to 12 units t.i.d. before meals to start today as ordered. We will continue also the low dose correction scale using NovoLog insulin to obviate hypoglycemia and detailed orders have been given. We will modify once again if basal insulin given overnight with Levemir to be increased to 30 units subcutaneously at bedtime daily to start tonight. We will obtain serial chemistries and supplement accordingly as needed. We will follow. Clover Minor MD
[2018-07-13] MEDS: Saccharomyces Boulardi 250 mg Cap PO SCH ×2 (09:44→17:37)
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
--- NOTE | 2018-07-13 15:25 | CP.PCM.PN ---
Subjective - Date & Time of Evaluation Date of Evaluation: 07/13/18 Time of Evaluation: 10:00 - Subjective Subjective: Pt seen and exaoimed at bedside. Pt has no complaints overnight. Pt reports a normal bowel movement this morning and last night. Pt denies cp, sob, n/v, f/c, parethesias, change in vision, urinary frequency. Objective - Vital Signs/Intake and Output Vital Signs (last 24 hours): Temp Pulse Resp BP Pulse Ox 98.1 F 97 H 18 137/88 100 07/13/18 08:00 07/13/18 11:29 07/13/18 08:00 07/13/18 08:00 07/13/18 08:00 Intake and Output: 07/13/18 07/13/18 06:59 18:59 Intake Total 500 600 Balance 500 600 - Medications Medications: Current Medications Amlodipine Besylate (Norvasc) 10 mg PO DAILY [facility] Last Admin: 07/13/18 09:44 Dose: 10 mg Dextrose (Dextrose 50% Inj) 0 ml IVP .STAT PRN; Protocol PRN Reason: Hypoglycemia Protocol Last Admin: 07/11/18 11:33 Dose: 25 ml Dextrose (Glutose 15) 0 gm PO ONCE PRN; Protocol PRN Reason: Hypoglycemia Protocol Docusate Sodium (Colace) 100 mg PO BID [facility] Last Admin: 07/13/18 09:44 Dose: Not Given Famotidine (Pepcid) 20 mg PO BID [facility] Last Admin: 07/13/18 09:44 Dose: 20 mg Glucagon (Glucagen Diagnostic Kit) 0 mg IM STAT PRN; Protocol PRN Reason: Hypoglycemia Protocol Heparin Sodium (Porcine) (Heparin) 5,000 units SC Q8 [facility] Last Admin: 07/13/18 13:34 Dose: Not Given Dextrose (Dextrose 5% In Water 1000 Ml) 1,000 mls @ 0 mls/hr IV .Q0M PRN; Protocol; Per Protocol PRN Reason: Hypoglycemia Protocol Ceftriaxone Sodium 1 gm/ (Sodium Chloride) 100 mls @ 200 mls/hr IVPB DAILY [facility] PRN Reason: Protocol Last Admin: 07/13/18 09:43 Dose: 200 mls/hr Insulin Aspart (Novolog) 0 unit SC ACHS [facility] PRN Reason: Protocol Last Admin: 07/13/18 11:45 Dose: Not Given Insulin Aspart (Novolog) 8 unit SC AC [facility] Last Admin: 07/13/18 12:43 Dose: 8 units Insulin Detemir (Levemir) 30 unit SC HS [facility] Last Admin: 07/12/18 22:04 Dose: 30 units Lisinopril (Zestril) 5 mg PO DAILY [facility] Last Admin: 07/13/18 09:44 Dose: 5 mg Metoprolol Tartrate (Lopressor) 2.5 mg IVP Q6H PRN PRN Reason: Systolic Blood Pressure Saccharomyces Boulardii (Florastor) 250 mg PO BID [facility] Last Admin: 07/13/18 09:44 Dose: 250 mg - Labs Labs: 07/13/18 07:07 07/13/18 07:07 - Additional Findings Additional findings: - Constitutional Appears: Non-toxic, No Acute Distress - Head Exam Head Exam: ATRAUMATIC, NORMAL INSPECTION - Eye Exam Eye Exam: EOMI, Normal appearance - ENT Exam ENT Exam: Mucous Membranes Moist, Normal Exam - Neck Exam Neck Exam: Normal Inspection - Respiratory Exam Respiratory Exam: Clear to Ausculation Bilateral, NORMAL BREATHING PATTERN - Cardiovascular Exam Cardiovascular Exam: REGULAR RHYTHM, +S1, +S2 - GI/Abdominal Exam GI & Abdominal Exam: Soft, Normal Bowel Sounds. absent: Tenderness - Extremities Exam Extremities Exam: Normal Capillary Refill, Pedal Edema, RLE melanosis , R foot swelling and arch deformity - Neurological Exam Neurological Exam: Alert, Awake, Oriented x3 - Psychiatric Exam Psychiatric exam: Depressed, Normal Affect - Skin Skin Exam: Dry, Intact, Normal Color Assessment and Plan - Assessment and Plan (Free Text) Assessment: Assessment: 28yo male admitted for uncontrolled DM type 1 and diabetic gastroparesis. Plan: Uncontrolled DM1 -Dr Minor consulted (endo): novolog 10U TID, levemir 30U HS -VBG sugar on admission >750-->165 today -ketones .7 -hgb A1C 11 -accuchecks ACHS -ISS-med risk -diabetic diet Anemia, chronic -hbg 9.3 -resolved to baseline Dehydration -resolved Uncontrolled HTN -Lisinopril 5mg PO daily -norvasc 5mg QD -Dr Reilly Cardio consulted: recs pending -Echo pending read f/u Diarrhea -resolved -all cultures and panels neg LLE lesions -podiatry consulted Dr Myles -x-ray left heel: destructive changes to talus and bones of the midfoot consistent with Charcot -Duplex U/S : pending read f/u -Strict NWB to left lower extremity at this time -Pending results of U/S, patient to follow up as outpatient i with Dr. Myles or Podiatry Clinic for further treatment of Charcot Substance abuse -UDS -HIV Hyperkalemia -resolved Abd pain -resolved -CT abd: free fluid LLQ, mild pericardial effusion, L inguinal lymphnode moderate size, Bladder thickening -f/u Abd and Pelv u/s Ppx hepain 5000sc Q8 pepcid 20mg BID Dispo: Pt pending echo read and cardio recs, d/c upon f/u
[2018-07-13 16:58] VITALS: BP 138/88; RESP 20; TEMP 98.2
[2018-07-13 18:16] VITALS: PULSE 106
--- NOTE | 2018-07-13 18:56 | PN ---
Copied To: Clover Minor MD Attending MD: Clover Minor MD DATE: 07/13/2018 ENDO FOLLOWUP NOTE LOCATION: Room 670. SUBJECTIVE: This is a 28-year-old male with recent uncontrolled type 1 insulin dependent diabetes, now being followed closely for metabolic management. His glycemic levels are extremely fluctuating from either hypo to hyperglycemic accelerations as noted overnight. His glucose levels was 62 yesterday at noon time and was 460 at bedtime with a repeat level of 301 at 2 a.m. this morning. LABORATORY DATA: The latest chemistries today showed BUN of 32, sodium 138, potassium 4.8, chloride 102, CO2 of 26, glucose 165, and creatinine 1.3. His glucose levels otherwise today have improved and ranged from 103 to 157 mg/dL. ASSESSMENT AND PLAN: So, at this time, we will continue the recent modification of insulin regimen overnight with Novolog given as 8 units subcu t.i.d. before meal as ordered. We will continue the Levemir given as 30 units subcu at bedtime daily as given. We will titrate intermittent as indicated to optimize metabolic control. We will follow and advise accordingly. Clover Minor MD
--- NOTE | 2018-07-13 22:33 | CARD ---
APPROVED REPORT Date of service: 07/13/2018 EXAM: Two-dimensional and M-mode echocardiogram with Doppler and color Doppler. Other Information Quality : GoodRhythm : INDICATION Chest Pain Syncope RISK FACTORS Hypertension Hyperlipidemia Diabetes 2D DIMENSIONS IVSd1.0 (0.7-1.1cm)Aortic Root (2D)2.7 (2.0-3.7cm) LVDd3.9 (3.9-5.9cm)PWd1.3 (0.7-1.1cm) LVDs2.6 (2.5-4.0cm)FS (%) 34.5 % LVEF (%)64.2 (>50%) M-Mode DIMENSIONS RVDd2.26 (2.1-3.2cm)Left Atrium (MM)3.25 (2.5-4.0cm) IVSd1.13 (0.7-1.1cm)Aortic Root2.89 (2.2-3.7cm) LVDd4.13 (4.0-5.6cm)Aortic Cusp Exc.1.83 (1.5-2.0cm) PWd1.16 (0.7-1.1cm)FS (%) 38 % LVDs2.56 (2.0-3.8cm)LVEF (%)69 (>50%) Mitral Valve MV E Aublgdmd28.5cm/sMV A Hfsrabmo10.6cm/sE/A ratio1.1 TDI E/Lateral E'0.0E/Medial E'0.0 <Conclusion> Left ventricle: thickness: normal; size: normal; overall ejection fraction: 65%: diastolic filling pressures: normal Mitral valve: annulus: normal: leaflets: normal: excursion: normal; no significant trans-mitral gradient: no significant incompetence: left atrium: normal Aortic valve: leaflets: normal: excursion: normal; no significant trans-aortic gradient: No significant incompetence: aortic root: normal Right sided Structures: Pulmonary valve: normal; no significant incompetence; Tricuspid valve: normal; no significant incompetence: Intra-cardiac hemodynamics: pulmonary systolic pressures: normal; central venous pressures: normal Trace pericardial effusion
--- NOTE | 2018-07-14 08:59 | VASCLAB ---
Date of service: 07/13/2018 PROCEDURE: Left Lower Extremity Venous Duplex Exam. HISTORY: Swelling and pain to left lower extremity, r/o DVT PRIORS: None. TECHNIQUE: Left common femoral, femoral, popliteal and posterior tibial, peroneal and great saphenous veins were evaluated. Flow was assessed with color Doppler, compressibility, assessment of phasic flow and augmentation response. Report prepared by Abhilash Barreto, LARRY, RVT FINDINGS: LEFT: 1. Common Femoral Vein: 1.1. Compressibility - Fully compressible: Thrombus - None : Flow - Phasic: Augmentation -Normal: Reflux - None. 2. Femoral Vein: 2.1. Compressibility - Fully compressible: Thrombus - None: Flow - Phasic: Augmentation -Normal: Reflux - None. 3. Popliteal Vein: 3.1. Compressibility - Fully compressible: Thrombus - None: Flow - Phasic: Augmentation -Normal: Reflux - None. 4. Posterior Tibial Vein: 4.1. Compressibility - Fully compressible: Thrombus - None: Flow - Phasic: Augmentation -Normal: Reflux - None. 5. Peroneal Vein: 5.1. Compressibility - Fully compressible: Thrombus - None: Flow - Phasic: Augmentation -Normal: Reflux - None. 6. Great Saphenous Vein: 6.1. Compressibility - Fully compressible: Thrombus - None: Flow - Phasic: Augmentation - Normal: Reflux - None. OTHER FINDINGS: A large mass with minimal vascularity was noted in the left groin area, measuring 1.82 x 4.42 c.m. IMPRESSION: No evidence of deep or superficial vein thrombosis of the left lower extremity with excellent venous flow. Normal valve function noted of the left side. Normal venous flow noted in the right common femoral vein.
== END 2018-07-13 20:18 | disposition home or self-care (01) | DRG 533 ==
LOC: C.ER 07:16 → C.9E 10:42 → OBSVTOIN 12:04 → C.6T 13:52
PROVIDERS: ADMIT Hospitalist; ATTEND Hospitalist
DX: E10.610 Type 1 diabetes mellitus with diabetic neuropathic arthropathy (principal); R78.81 Bacteremia; E86.0 Dehydration; E87.5 Hyperkalemia; E10.649 Type 1 diabetes mellitus with hypoglycemia without coma; E10.43 Type 1 diabetes mellitus with diabetic autonomic (poly)neuropathy; E10.621 Type 1 diabetes mellitus with foot ulcer; E78.5 Hyperlipidemia, unspecified; F12.90 Cannabis use, unspecified, uncomplicated; I10 Essential (primary) hypertension; K31.84 Gastroparesis; K59.00 Constipation, unspecified; Z59.0 Homelessness; Z79.4 Long term (current) use of insulin; Z91.14 Patient's other noncompliance with medication regimen; M14.679 Charcot's joint, unspecified ankle and foot; H50.40 Unspecified heterotropia; D64.9 Anemia, unspecified

== ENCOUNTER 2018-08-04 03:39 | Inpatient (IN) | payer MEDICAID ==
[2018-08-04] MEDS ORDERED: Sodium Chloride 0.9% 1,000 ML IV ONE ×2 (05:42→06:21)
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
[2018-08-04 05:57] LABS: BASO # 0.1 K/uL (0.0-0.2); BASO % 1.2 % (0.0-2.0); EOS # 0.1 K/uL (0.0-0.7); EOS % 0.9 % (0.0-4.0); HEMOGLOBIN 8.6 g/dL (12.0-18.0); LYMPH # 1.4 K/uL (1.0-4.3); LYMPH % 16.4 % (20.0-40.0); MEAN CELL VOLUME 84.2 fL (80.0-94.0); MEAN CORPUSCULAR HEMOGLOBIN 27.8 pg (27.0-31.0); MEAN PLATELET VOLUME 9.3 fL (7.2-11.7); MONO # 0.9 K/uL (0.0-0.8); MONO % 10.7 % (0.0-10.0); NEUT # 6.1 K/uL (1.8-7.0); NEUT % 70.8 % (50.0-75.0); RBC 3.1 Mil/uL (4.40-5.90); RED CELL DISTRIBUTION WIDTH 14.3 % (11.5-14.5); WHITE BLOOD COUNT 8.6 K/uL (4.8-10.8)
[2018-08-04] MEDS ORDERED: Sodium Chloride 0.9% 0 ML ONE (06:04)
[2018-08-04 06:18] LABS: ALB/GLOB RATIO 0.9 (1.0-2.1); ALBUMIN 3.9 g/dL (3.5-5.0); CALCIUM 9.6 mg/dl (8.6-10.4)
[2018-08-04] MEDS ORDERED: Sodium Chloride 0.9% 1,000 ML ONE ×2 (06:28→08:35)
[2018-08-04] MEDS ORDERED: Insulin Human Regular 100 UNIT in Sodium Chloride 0.9% 99 ML SC SCH (06:30)
[2018-08-04] MEDS ORDERED: Insulin Human Regular 100 UNIT in Sodium Chloride 0.9% 99 ML IV SCH (06:45)
--- NOTE | 2018-08-04 07:06 | CP.PCM.CON ---
History of Present Illness - History of Present Illness History of Present Illness: CCM 28 yo black male with hx IDDM /HTN to ED c/o N/V /decreased appetite/ back pain for 2 days. claims to be taking insulin. Denied polyuria /polydipsea/ sob/ fever /cough/ Received 2 liters IV fluid in ED. Insulin just started. ROS- as noted All- NKDA Social- no tob/ etoh/ + marijuana Meds- reviewed FH- Unknown Resting, responsive, approporiate/ nad Neck- no jvd Lungs- bilat bs Heart-rr aBd- bs+, soft, nontender Ext- nontender Neuro- nonfocal Labs-reviewed A&P Mild DKA IDDM HTN NADIRA Dehydration cont IV hydration repeat BMP on insulin drip to assess responise to Rx maintain optimal lytes f/u labs cbg monitoring DVT prophylaxis re-consult with f/u labs Past Patient History - Infectious Disease Hx of Infectious Diseases: None - Tetanus Immunizations Tetanus Immunization: Unknown - Past Medical History & Family History Past Medical History?: Yes - Past Social History Smoking Status: Never Smoked - CARDIAC Hx Hypertension: Yes - PULMONARY Hx Respiratory Disorders: No - NEUROLOGICAL Hx Neurological Disorder: No - HEENT Hx HEENT Problems: No - RENAL Hx Chronic Kidney Disease: No - ENDOCRINE/METABOLIC Hx Endocrine Disorders: Yes (SEE COMMENT) Hx Diabetes Mellitus Type 1: Yes - HEMATOLOGICAL/ONCOLOGICAL Hx Blood Disorders: No - INTEGUMENTARY Hx Dermatological Problems: Yes Other/Comment: rle healed wound dry discolored skin dry thick toenails dry dark discolored toes, dry skin to knees, generalized dry skin to body, lle 1.5cm x 1cm dry wound to top of foot light and brosn in color, dry thick toenails, dark discolored leathery skin, scar to posterior leg from ankle to below calf from debridement of osteomylitis 12 cm long pink red brown and white dry skin - MUSCULOSKELETAL/RHEUMATOLOGICAL Hx Fractures: Yes (2014) - GASTROINTESTINAL Hx Gastrointestinal Disorders: No - GENITOURINARY/GYNECOLOGICAL Hx Genitourinary Disorders: No - PSYCHIATRIC Hx Substance Use: Yes (marijuana) - SURGICAL HISTORY Hx Surgeries: Yes (SEE COMMENT) Other/Comment: Left foot surgery with graft - ANESTHESIA Hx Anesthesia: Yes Hx Anesthesia Reactions: No Hx Malignant Hyperthermia: No Meds Allergies/Adverse Reactions: Allergies Allergy/AdvReac Type Severity Reaction Status Date / Time pollen extracts Allergy Intermediate ITCHING Verified 08/04/18 03:48 - Medications Medications: Current Medications Sodium Chloride (Sodium Chloride 0.9%) 1,000 mls @ 1,000 mls/hr IV .Q1H ONE Stop: 08/04/18 07:20 Insulin Human Regular 100 unit (/ Sodium Chloride) 100 mls @ 5 mls/hr IV .Q20H DEMETRIA Last Admin: 08/04/18 06:50 Dose: 5 mls/hr Results - Vital Signs Recent Vital Signs: Last Vital Signs Temp 99.7 F H 08/04/18 06:28 Pulse 110 H 08/04/18 06:28 Resp 16 08/04/18 03:49 BP 173/101 H 08/04/18 06:28 Pulse Ox 98 08/04/18 06:29 - Labs Result Diagrams: 08/04/18 05:54 08/04/18 05:54 Labs: Laboratory Results - last 24 hr 08/04/18 08/04/18 08/04/18 05:54 05:54 06:00 WBC 8.6 D RBC 3.10 L Hgb 8.6 L Hct 26.1 L MCV 84.2 MCH 27.8 MCHC 33.0 RDW 14.3 Plt Count 297 MPV 9.3 Neut % (Auto) 70.8 Lymph % (Auto) 16.4 L [place] % (Auto) 10.7 H Eos % (Auto) 0.9 Baso % (Auto) 1.2 Neut # (Auto) 6.1 Lymph # (Auto) 1.4 [place] # (Auto) 0.9 H Eos # (Auto) 0.1 Baso # (Auto) 0.1 Sodium 137 Potassium 5.5 H Chloride 103 Carbon Dioxide 19 L Anion Gap 21 H BUN 28 H Creatinine 1.7 H Est GFR ( Amer) 59 Est GFR (Non-Af Amer) 49 Random Glucose 424 H* D Lactic Acid 0.9 Calcium 9.6 Total Bilirubin 0.5 AST 14 L D ALT 21 D Alkaline Phosphatase 140 H Total Protein 8.2 Albumin 3.9 Globulin 4.3 H Albumin/Globulin Ratio 0.9 L Lipase 43 Assessment & Plan (1) DKA (diabetic ketoacidoses) Status: Acute (2) Diabetes type I Status: Acute (3) Abnormal kidney function Status: Acute (4) Dehydration Status: Resolved (5) Hypertension Status: Chronic
--- NOTE | 2018-08-04 09:28 | RAD ---
Date of service: 08/04/2018 HISTORY: abd pain COMPARISON: Comparison chest dated 05/11/2018 TECHNIQUE: Chest PA and lateral FINDINGS: LUNGS: No active pulmonary disease. PLEURA: No significant pleural effusion identified. No pneumothorax apparent. CARDIOVASCULAR: Normal. OSSEOUS STRUCTURES: No significant abnormalities. VISUALIZED UPPER ABDOMEN: Normal. OTHER FINDINGS: None. IMPRESSION: No active disease.
[2018-08-04 11:13] LABS: BLOOD UREA NITROGEN 26 mg/dL (9-20); GFR NON-AFRICAN AMERICAN > 60
[2018-08-04] MEDS ORDERED: Dextrose 50% SYRINGE Inj (50 ml) IV PRN (13:55)
[2018-08-04] MEDS ORDERED: Glucagon Recombinant 1 mg Inj IM PRN (13:55)
[2018-08-04] MEDS: Potassium Chl 20 mEq in NS 1,000 ML IV SCH (14:58)
--- NOTE | 2018-08-04 17:48 | CP.PCM.HP ---
<Danial Greenfield - Last Filed: 08/04/18 17:44> History of Present Illness - History of Present Illness History of Present Illness: PGY-[address] and [address] Anderson Patient is a 28 year old male with past medical history of DM I and HTN who presents to [facility] on 08/04 complaining of mild abdominal pain, chills, nausea, vomiting, and diarrhea for duration of 3 days. States that patient had two episodes of vomiting yesterday preceded by 3 episodes of vomiting two days ago, all non-bloody non-billious. Patient admits to three episodes of diarrhea, the most recent episode yesterday evening. Denies dark tarry stool or bright red blood in stool. Patient also complains of mild neck pain for duration of 2 days, worse with movement and feels muscular in nature. On review of system patient also admits to dizziness and headaches. Patient states that he is compliant with his medications and takes his insulin every day , before meals and at bedtime. Admits to decreased appetite the past few days- per patient this is partially due to feeling ill and also due to recent social stressors. His last meal was yogurt yesterday at 6:00 PM. Patient was diagnosed with DM I approximately 13 years ago and admits to recent hospitalizations because of his disease. Patient recalls that his last hospitalization was in June for a syncopal episode at work. Patient currently does not have a PMD but has found a doctor that he would like to establish as his PMD. The last outpatient physician that he saw was at [facility]. Additionally, patient admits to multiple personal stressors in his life and states that he recently was without health insurance or a home for duration of one year. Patient denies fevers, changes to vision/hearing, nasal congestion, sore throat , cough, shortness of breath, chest pain, heart palpitations, constipation, arthralgias, neuropathy, dysuria, increased urinary frequency, polyphagia, polydipsia, recent illnesses. PMHx: DM I, HTN Medications: Insulin Aspart 8 units TID and Insulin Levemir 30 units at night. 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 TERESA Karimi (Trinidad Lenz) Code: DNI Present on Admission - Present on Admission Any Indicators Present on Admission: No Review of Systems - Constitutional Constitutional: Chills, Fatigue, Weakness. absent: Fever, Headache - EENT Eyes: absent: Blurred Vision, Diplopia, Pain Ears: absent: Abnormal Hearing, Dizziness Nose/Mouth/Throat: absent: Nasal Congestion, Nasal Discharge - Cardiovascular Cardiovascular: absent: Chest Pain, Edema, Irregular Heart Rhythm, Leg Edema, Palpitations - Respiratory Respiratory: absent: Cough, Dyspnea, Wheezing - Gastrointestinal Gastrointestinal: Abdominal Pain, Change in Stool Character (+1 bout watery non- bloody diarrhea), Diarrhea, Vomiting. absent: Hematemesis, Hematochezia Additional comments: +mild diffuse abdominal pain - Genitourinary Genitourinary: absent: Change in Urinary Stream, Difficulty Urinating, Dysuria, Hematuria - Musculoskeletal Musculoskeletal: Muscle Weakness, Neck Pain. absent: Back Pain, Numbness - Neurological Neurological: Weakness. absent: Dizziness, Numbness, Headaches, Radicular Pain , Syncope - Psychiatric Psychiatric: absent: Confusion, Memory Loss Additional comments: +recent increase in social stressors - Endocrine Endocrine: Fatigue. absent: Polydipsia, Polyphagia, Polyuria Past Patient History - Infectious Disease Hx of Infectious Diseases: None - Tetanus Immunizations Tetanus Immunization: Unknown - Past Medical History & Family History Past Medical History?: Yes - Past Social History Smoking Status: Never Smoked - CARDIAC Hx Hypertension: Yes - PULMONARY Hx Respiratory Disorders: No - NEUROLOGICAL Hx Neurological Disorder: No - HEENT Hx HEENT Problems: No - RENAL Hx Chronic Kidney Disease: No - ENDOCRINE/METABOLIC Hx Endocrine Disorders: Yes (SEE COMMENT) Hx Diabetes Mellitus Type 1: Yes - HEMATOLOGICAL/ONCOLOGICAL Hx Blood Disorders: No - INTEGUMENTARY Hx Dermatological Problems: Yes Other/Comment: rle healed wound dry discolored skin dry thick toenails dry dark discolored toes, dry skin to knees, generalized dry skin to body, lle 1.5cm x 1cm dry wound to top of foot light and brosn in color, dry thick toenails, dark discolored leathery skin, scar to posterior leg from ankle to below calf from debridement of osteomylitis 12 cm long pink red brown and white dry skin - MUSCULOSKELETAL/RHEUMATOLOGICAL Hx Fractures: Yes (R shoulder 2014) - GASTROINTESTINAL Hx Gastrointestinal Disorders: No - GENITOURINARY/GYNECOLOGICAL Hx Genitourinary Disorders: No - PSYCHIATRIC Hx Substance Use: Yes (marijuana) - SURGICAL HISTORY Hx Surgeries: Yes (SEE COMMENT) Other/Comment: Left foot surgery with graft - ANESTHESIA Hx Anesthesia: Yes Hx Anesthesia Reactions: No Hx Malignant Hyperthermia: No Meds Allergies/Adverse Reactions: Allergies Allergy/AdvReac Type Severity Reaction Status Date / Time pollen extracts Allergy Intermediate ITCHING Verified 08/04/18 03:48 Physical Exam - Head Exam Head Exam: ATRAUMATIC, NORMAL INSPECTION - Eye Exam Eye Exam: EOMI, Normal appearance Pupil Exam: NORMAL ACCOMODATION - ENT Exam ENT Exam: Mucous Membranes Moist - Neck Exam Neck exam: Positive for: Tenderness (+neck paraspinal tenderness to palpation) - Respiratory Exam Respiratory Exam: Clear to Auscultation Bilateral, NORMAL BREATHING PATTERN. absent: Accessory Muscle Use, Rales, Rhonchi, Wheezes, Respiratory Distress - Cardiovascular Exam Cardiovascular Exam: REGULAR RHYTHM, +S1, +S2 - GI/Abdominal Exam GI & Abdominal Exam: Normal Bowel Sounds, Soft, Tenderness (+mild epigastric tenderness to palpation). absent: Mass, Rebound, Rigid - Extremities Exam Extremities exam: Positive for: pedal edema (+L-sided pedal edema with chronic skin changes. ), pedal pulses present. Negative for: tenderness Additional comments: Healed surgical incision L calcaneus - Neurological Exam Neurological exam: Alert, CN II-XII Intact, Oriented x3 Additional comments: Sensation and muscle strength fully intact in upper and lower extremities b/l - Psychiatric Exam Additional comments: Pt tends not to make eye contact, appears somewhat anxious and irritated - Skin Skin Exam: Dry, Intact Additional comments: +chronic skin changes LLE Results - Vital Signs Recent Vital Signs: Last Vital Signs Temp 97.7 F 08/04/18 11:56 Pulse 91 H 08/04/18 11:56 Resp 12 08/04/18 11:56 BP 117/80 08/04/18 11:56 Pulse Ox 100 08/04/18 11:56 - Labs Result Diagrams: 08/04/18 05:54 08/04/18 10:45 Labs: Laboratory Results - last 24 hr 08/04/18 08/04/18 08/04/18 05:54 05:54 05:54 WBC 8.6 D RBC 3.10 L Hgb 8.6 L Hct 26.1 L MCV 84.2 MCH 27.8 MCHC 33.0 RDW 14.3 Plt Count 297 MPV 9.3 Neut % (Auto) 70.8 Lymph % (Auto) 16.4 L [place] % (Auto) 10.7 H Eos % (Auto) 0.9 Baso % (Auto) 1.2 Neut # (Auto) 6.1 Lymph # (Auto) 1.4 [place] # (Auto) 0.9 H Eos # (Auto) 0.1 Baso # (Auto) 0.1 Sodium 137 Potassium 5.5 H Chloride 103 Carbon Dioxide 19 L Anion Gap 21 H BUN 28 H Creatinine 1.7 H Est GFR ( Amer) 59 Est GFR (Non-Af Amer) 49 POC Glucose (mg/dL) Random Glucose 424 H* D Hemoglobin A1c 10.3 H Lactic Acid Calcium 9.6 Total Bilirubin 0.5 AST 14 L D ALT 21 D Alkaline Phosphatase 140 H Total Protein 8.2 Albumin 3.9 Globulin 4.3 H Albumin/Globulin Ratio 0.9 L Lipase 43 B-Hydroxybutyrate 08/04/18 08/04/18 08/04/18 06:00 07:18 07:59 WBC RBC Hgb Hct MCV MCH MCHC RDW Plt Count MPV Neut % (Auto) Lymph % (Auto) [place] % (Auto) Eos % (Auto) Baso % (Auto) Neut # (Auto) Lymph # (Auto) [place] # (Auto) Eos # (Auto) Baso # (Auto) Sodium Potassium Chloride Carbon Dioxide Anion Gap BUN Creatinine Est GFR ( Amer) Est GFR (Non-Af Amer) POC Glucose (mg/dL) 317 H Random Glucose Hemoglobin A1c Lactic Acid 0.9 Calcium Total Bilirubin AST ALT Alkaline Phosphatase Total Protein Albumin Globulin Albumin/Globulin Ratio Lipase B-Hydroxybutyrate 1.05 H 08/04/18 08/04/18 08/04/18 10:40 10:45 11:56 WBC RBC Hgb Hct MCV MCH MCHC RDW Plt Count MPV Neut % (Auto) Lymph % (Auto) [place] % (Auto) Eos % (Auto) Baso % (Auto) Neut # (Auto) Lymph # (Auto) [place] # (Auto) Eos # (Auto) Baso # (Auto) Sodium 139 Potassium 4.4 Chloride 110 H Carbon Dioxide 21 L Anion Gap 12 BUN 26 H Creatinine 1.4 Est GFR ( Amer) > 60 Est GFR (Non-Af Amer) > 60 POC Glucose (mg/dL) 89 57 L Random Glucose 101 Hemoglobin A1c Lactic Acid Calcium 9.0 Total Bilirubin AST ALT Alkaline Phosphatase Total Protein Albumin Globulin Albumin/Globulin Ratio Lipase B-Hydroxybutyrate 08/04/18 08/04/18 11:58 17:02 WBC RBC Hgb Hct MCV MCH MCHC RDW Plt Count MPV Neut % (Auto) Lymph % (Auto) [place] % (Auto) Eos % (Auto) Baso % (Auto) Neut # (Auto) Lymph # (Auto) [place] # (Auto) Eos # (Auto) Baso # (Auto) Sodium Potassium Chloride Carbon Dioxide Anion Gap BUN Creatinine Est GFR ( Amer) Est GFR (Non-Af Amer) POC Glucose (mg/dL) 54 L 394 H Random Glucose Hemoglobin A1c Lactic Acid Calcium Total Bilirubin AST ALT Alkaline Phosphatase Total Protein Albumin Globulin Albumin/Globulin Ratio Lipase B-Hydroxybutyrate Assessment & Plan - Assessment and Plan (Free Text) Assessment: 1) DKA, Mild / Uncontrolled Type 1 Diabetes: * CMP * Initial random glucpse 424 * Initial AG 21 (5:50) --> resolved * Initial K 5.5 (5:50) --> 4.4 (10L45) ; Pt on home insulin, receiving NS with K to prevent hypokalemia * Initial BUN/Cr elevated (28/1.7) --> Improved (26/1.4) * Na 139 - No evidence of dilutional hyponatremia, continue to monitor * Serum + B-Hydroxybutyrate * CXR (08/04) - No active pulmonary disease * Blood cultures (patient experienced frequent subjective chills) - Pending * Hypoglycemic protocol initiated * Accuchecks ACHS * HgB A1C - 10.3 * Severely uncontrolled DM * Patient counseled that he needs to establish a primary care doctor and internet project manager to control his diabetes * Restarted home insulin - Aspart 8U SC ACTID, Levemir 30U SC HS * Podiatry consulted for chronic LLE edema and skin changes, help appreciated * Diabetic diet * Fluid management: * S/p NS IVF bolus x5 in ER * On KCl 20mEQ in NS 1,000mL @ 100cc/hr * Monitor electrolytes 2) HTN: * BP range 103/62 - 179/117 * Lisinopril 10mg PO daily * Discussed need to establish PMD 3) Anemia: * CBC w/ dif * HgB 8.6 * Appears to be chronically anemic from past visits * May require outpatient anemia workup 4) PPx: * DVT: Heparin 5,000 U SC Q8 * GI: Protonix 40mg Daily Assessment and Plan Discussed with Dr. Monica Greenfield, PGY-1 <Carmen Anderson - Last Filed: 08/05/18 10:30> Results - Vital Signs Recent Vital Signs: Last Vital Signs Temp 98.1 F 08/05/18 08:00 Pulse 97 H 08/05/18 08:00 Resp 20 08/05/18 08:00 BP 158/96 H 08/05/18 08:00 Pulse Ox 98 08/05/18 08:00 - Labs Result Diagrams: 08/05/18 07:23 08/05/18 07:23 Labs: Laboratory Results - last 24 hr 08/04/18 08/04/18 08/04/18 05:54 10:40 10:45 WBC RBC Hgb Hct MCV MCH MCHC RDW Plt Count MPV Neut % (Auto) Lymph % (Auto) [place] % (Auto) Eos % (Auto) Baso % (Auto) Neut # (Auto) Lymph # (Auto) [place] # (Auto) Eos # (Auto) Baso # (Auto) Sodium 139 Potassium 4.4 Chloride 110 H Carbon Dioxide 21 L Anion Gap 12 BUN 26 H Creatinine 1.4 Est GFR ( Amer) > 60 Est GFR (Non-Af Amer) > 60 POC Glucose (mg/dL) 89 Random Glucose 101 Hemoglobin A1c 10.3 H Calcium 9.0 Total Bilirubin AST ALT Alkaline Phosphatase Total Protein Albumin Globulin Albumin/Globulin Ratio 08/04/18 08/04/18 08/04/18 11:56 11:58 17:02 WBC RBC Hgb Hct MCV MCH MCHC RDW Plt Count MPV Neut % (Auto) Lymph % (Auto) [place] % (Auto) Eos % (Auto) Baso % (Auto) Neut # (Auto) Lymph # (Auto) [place] # (Auto) Eos # (Auto) Baso # (Auto) Sodium Potassium Chloride Carbon Dioxide Anion Gap BUN Creatinine Est GFR ( Amer) Est GFR (Non-Af Amer) POC Glucose (mg/dL) 57 L 54 L 394 H Random Glucose Hemoglobin A1c Calcium Total Bilirubin AST ALT Alkaline Phosphatase Total Protein Albumin Globulin Albumin/Globulin Ratio 08/04/18 08/05/18 08/05/18 21:27 00:51 07:16 WBC RBC Hgb Hct MCV MCH MCHC RDW Plt Count MPV Neut % (Auto) Lymph % (Auto) [place] % (Auto) Eos % (Auto) Baso % (Auto) Neut # (Auto) Lymph # (Auto) [place] # (Auto) Eos # (Auto) Baso # (Auto) Sodium Potassium Chloride Carbon Dioxide Anion Gap BUN Creatinine Est GFR ( Amer) Est GFR (Non-Af Amer) POC Glucose (mg/dL) 439 H* 331 H 206 H Random Glucose Hemoglobin A1c Calcium Total Bilirubin AST ALT Alkaline Phosphatase Total Protein Albumin Globulin Albumin/Globulin Ratio 08/05/18 08/05/18 07:23 07:23 WBC 5.9 RBC 2.84 L Hgb 7.7 L Hct 23.5 L MCV 82.7 MCH 27.0 MCHC 32.7 L RDW 14.2 Plt Count 287 MPV 8.3 Neut % (Auto) 64.9 Lymph % (Auto) 22.8 [place] % (Auto) 8.9 Eos % (Auto) 2.5 Baso % (Auto) 0.9 Neut # (Auto) 3.9 Lymph # (Auto) 1.4 [place] # (Auto) 0.5 Eos # (Auto) 0.1 Baso # (Auto) 0.1 Sodium 139 Potassium 5.3 H Chloride 109 H Carbon Dioxide 21 L Anion Gap 14 BUN 22 H Creatinine 1.3 Est GFR ( Amer) > 60 Est GFR (Non-Af Amer) > 60 POC Glucose (mg/dL) Random Glucose 215 H Hemoglobin A1c Calcium 8.9 Total Bilirubin 0.3 AST 14 L ALT 17 L Alkaline Phosphatase 113 Total Protein 7.2 Albumin 3.2 L Globulin 4.0 H Albumin/Globulin Ratio 0.8 L Attending/Attestation - Attestation I have personally seen and examined this patient.: Yes I have fully participated in the care of the patient.: Yes I have reviewed all pertinent clinical information: Yes Notes (Text): This is a 28years old male with type 1 DM on insulin came for vomiting and diarrhea. His sugar is high.anion gap improved with insulin drip at ER. He states that he was taking his insulin. Has history of admission due to hypoglycemia . C/O chills. History of bactremia I will restart his home insulin if he tolerates diet. He is hungry wants to eat. Do Blood culture ro r/o bacteremia. follow blood culture and monitor sugar Assessment and the plan discussed with the resident in detail 08/05/18 10:27
[2018-08-04] MEDS ORDERED: (Novolog) Insulin Aspart, Recombinant 100 u/ml 10 ml vial ONE (17:49)
[2018-08-04] MEDS: (Novolog) Insulin Aspart, Recombinant 100 u/ml 10 ml vial SC SCH (17:52)
[2018-08-04 20:42] VITALS: RESP 20
[2018-08-04] MEDS ORDERED: Insulin Detemir 100 units/ml Vial (Levemir) SC SCH (22:00)
[2018-08-05] MEDS: Potassium Chl 20 mEq in NS 1,000 ML IV SCH (00:54)
[2018-08-05 08:00] LABS: BASO # 0.1 K/uL (0.0-0.2); BASO % 0.9 % (0.0-2.0); EOS # 0.1 K/uL (0.0-0.7); EOS % 2.5 % (0.0-4.0); HEMOGLOBIN 7.7 g/dL (12.0-18.0); LYMPH # 1.4 K/uL (1.0-4.3); LYMPH % 22.8 % (20.0-40.0); MEAN CELL VOLUME 82.7 fL (80.0-94.0); MEAN CORPUSCULAR HGB CONC 32.7 g/dL (33.0-37.0); MEAN PLATELET VOLUME 8.3 fL (7.2-11.7); MONO # 0.5 K/uL (0.0-0.8); MONO % 8.9 % (0.0-10.0); NEUT # 3.9 K/uL (1.8-7.0); NEUT % 64.9 % (50.0-75.0); NRBC % 0.2 % (0.0-2.0); RBC 2.84 Mil/uL (4.40-5.90); RED CELL DISTRIBUTION WIDTH 14.2 % (11.5-14.5); WHITE BLOOD COUNT 5.9 K/uL (4.8-10.8)
[2018-08-05 08:16] LABS: ALB/GLOB RATIO 0.8 (1.0-2.1); ALBUMIN 3.2 g/dL (3.5-5.0); ALT/SGPT 17 U/L (21-72); AST/SGOT 14 U/L (17-59); BLOOD UREA NITROGEN 22 mg/dL (9-20); CALCIUM 8.9 mg/dl (8.6-10.4); GFR NON-AFRICAN AMERICAN > 60
[2018-08-05] MEDS: (Novolog) Insulin Aspart, Recombinant 100 u/ml 10 ml vial SC SCH ×3 (08:27→18:02)
[2018-08-05] MEDS: Pantoprazole 40 mg EC Tab PO SCH (09:42)
[2018-08-05] MEDS ORDERED: Insulin Detemir 100 units/ml Vial (Levemir) SC SCH (13:27)
--- NOTE | 2018-08-05 14:12 | CP.PCM.PN ---
<Danial Greenfield - Last Filed: 08/05/18 14:42> Subjective - Date & Time of Evaluation Date of Evaluation: 08/05/18 Time of Evaluation: 14:11 - Subjective Subjective: PGY-[address] Anderson Patient is a 28 year old male with past medical history of T1DM and HTN who presented to [facility] on 08/04 complaining of mild abdominal pain, chills, nausea, vomiting, and diarrhea for approximately 3 days. Patient seen and examined at bedside this morning. States that he continues to feel nauseous with chills. Is able to tolerate food. Denies fevers , committing, headache, changes to vision, sore throat, cough, shortness of breath, chest pain, abdominal pain, diarrhea, constipation, neuropathy, dysuria. Objective - Vital Signs/Intake and Output Vital Signs (last 24 hours): Temp Pulse Resp BP Pulse Ox 98.1 F 97 H 20 158/96 H 98 08/05/18 08:00 08/05/18 08:00 08/05/18 08:00 08/05/18 08:00 08/05/18 08:00 Intake and Output: 08/05/18 08/05/18 06:59 18:59 Intake Total 1040 Balance 1040 - Medications Medications: Current Medications Dextrose (Dextrose 50% Inj) 0 ml IV STAT PRN; Protocol PRN Reason: Hypoglycemia Protocol Dextrose (Glutose 15) 0 gm PO ONCE PRN; Protocol PRN Reason: Hypoglycemia Protocol Glucagon (Glucagen Diagnostic Kit) 0 mg IM STAT PRN; Protocol PRN Reason: Hypoglycemia Protocol Heparin Sodium (Porcine) (Heparin) 5,000 units SC Q8 [facility] Last Admin: 08/05/18 13:50 Dose: Not Given Dextrose (Dextrose 5% In Water 1000 Ml) 1,000 mls @ 0 mls/hr IV .Q0M PRN; Protocol; Per Protocol PRN Reason: Hypoglycemia Protocol Insulin Aspart (Novolog) 8 unit SC ACTID [facility] Last Admin: 08/05/18 11:56 Dose: Not Given Insulin Detemir (Levemir) 20 unit SC HS [facility] Lisinopril (Zestril) 10 mg PO DAILY [facility] Last Admin: 08/05/18 09:42 Dose: 10 mg Ondansetron HCl (Zofran Inj) 4 mg IVP Q4 PRN PRN Reason: Nausea/Vomiting Last Admin: 08/05/18 00:55 Dose: 4 mg Pantoprazole Sodium (Protonix Ec Tab) 40 mg PO DAILY [facility] Last Admin: 08/05/18 09:42 Dose: 40 mg - Labs Labs: 08/05/18 07:23 08/05/18 07:23 - Head Exam Head Exam: ATRAUMATIC, NORMAL INSPECTION - Eye Exam Eye Exam: EOMI, Normal appearance - Respiratory Exam Respiratory Exam: Clear to Ausculation Bilateral, NORMAL BREATHING PATTERN - Cardiovascular Exam Cardiovascular Exam: REGULAR RHYTHM, +S1, +S2 - GI/Abdominal Exam GI & Abdominal Exam: Soft, Tenderness, Normal Bowel Sounds. absent: Distended Additional comments: +Mild epigastric pain to palpation - Extremities Exam Extremities Exam: Pedal Edema (+Pedal edema and chronic skin changes LLE). absent: Tenderness - Neurological Exam Neurological Exam: Alert, Awake, CN II-XII Intact, Normal Gait, Oriented x3 - Skin Skin Exam: Dry, Intact, Warm Additional comments: +chronic skin mottling on LLE. +Scars on dorsal hands b/l due to work-related injuries Assessment and Plan - Assessment and Plan (Free Text) Assessment: 1) DKA, Mild / Uncontrolled Type 1 Diabetes: * CMP * Initial random glucpse 424 * Initial AG 21 (5:50) --> resolved * Initial K 5.5 (5:50) --> 4.4 (10:45) -> 5.3 today (08/05); IVF and potassium stopped. Will recheck BMP this evening. 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 * Restarted home insulin - Aspart 8U SC ACTID, Levemir 30U SC HS --> Changed to Aspart 8U SC ACTID, Levemir 20U SC HS * Podiatry consulted for chronic LLE edema and skin changes, help appreciated * Diabetic diet * Fluid management: * S/p NS IVF bolus x5 in ER * KCl 20mEQ in NS 1,000mL @ 100cc/hr --> STOPPED IVF/Potassium * Monitor electrolytes 2) HTN: * BP range 103/62 - 179/117 * Lisinopril 10mg PO daily * Discussed need to establish PMD 3) Anemia: * CBC w/ dif * HgB 7.7 * Appears to be chronically anemic from past visits * May require outpatient anemia workup 4) PPx: * DVT: Heparin 5,000 U SC Q8 * GI: Protonix 40mg Daily Assessment and Plan Discussed with Dr. Monica Greenfield, PGY-1 <Carmen Anderson - Last Filed: 08/09/18 07:13> Objective - Vital Signs/Intake and Output Vital Signs (last 24 hours): Temp Pulse Resp BP Pulse Ox 99 F 105 H 20 145/93 H 100 08/09/18 00:00 08/09/18 00:00 08/09/18 00:00 08/09/18 00:00 08/09/18 00:00 Intake and Output: 08/09/18 08/09/18 06:59 18:59 Intake Total 540 Balance 540 - Medications Medications: Current Medications Amlodipine Besylate (Norvasc) 5 mg PO DAILY [facility] Last Admin: 08/08/18 10:09 Dose: 5 mg Dextrose (Dextrose 50% Inj) 0 ml IV STAT PRN; Protocol PRN Reason: Hypoglycemia Protocol Dextrose (Glutose 15) 0 gm PO ONCE PRN; Protocol PRN Reason: Hypoglycemia Protocol Glucagon (Glucagen Diagnostic Kit) 0 mg IM STAT PRN; Protocol PRN Reason: Hypoglycemia Protocol Heparin Sodium (Porcine) (Heparin) 5,000 units SC Q8 [facility] Last Admin: 08/09/18 06:55 Dose: Not Given Dextrose (Dextrose 5% In Water 1000 Ml) 1,000 mls @ 0 mls/hr IV .Q0M PRN; Protocol; Per Protocol PRN Reason: Hypoglycemia Protocol Ferric Sodium Gluconate Complex 125 mg/ Sodium Chloride 110 mls @ 110 mls/hr IVPB DAILY [facility] Last Admin: 09/14/18 15:20 Dose: 110 mls/hr Insulin Aspart (Novolog) 8 unit SC ACTID [facility] Last Admin: 08/08/18 17:25 Dose: 8 unit Insulin Detemir (Levemir) 30 unit SC HS [facility] Last Admin: 08/08/18 21:54 Dose: 30 unit Lisinopril (Zestril) 10 mg PO DAILY [facility] Last Admin: 08/08/18 10:09 Dose: 10 mg Ondansetron HCl (Zofran Inj) 4 mg IVP Q4 PRN PRN Reason: Nausea/Vomiting Last Admin: 08/06/18 06:56 Dose: 4 mg Pantoprazole Sodium (Protonix Ec Tab) 40 mg PO DAILY [facility] Last Admin: 08/08/18 10:09 Dose: 40 mg - Labs Labs: 08/08/18 07:16 08/08/18 07:16 Attending/Attestation - Attestation I have personally seen and examined this patient.: Yes I have fully participated in the care of the patient.: Yes I have reviewed all pertinent clinical information, including history, physical exam and plan: Yes Notes (Text): seen and examined by me. Discussed about his sugar control,No complain. He was hypoglycemic this afternoon. Has hsitory of hypoglycemia. Discussed about carring glucose tabs and risk of hypoglycemia . Patient carries candies with him. He check his sugar at home. Planning to get a new physician. Seen by DR Minor in the past We will reduce his Levemir to 20units continue his 8 units Insulin as part with his meal. S/P Chills. we will follow blood culture. Swollen ankle. 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
[2018-08-05 17:44] LABS: BLOOD UREA NITROGEN 23 mg/dL (9-20); CALCIUM 9.5 mg/dl (8.6-10.4); GFR NON-AFRICAN AMERICAN > 60
[2018-08-05] MEDS ORDERED: (Novolin R) Insulin Human Regular 100 units/ml vial IV ONE (19:44)
[2018-08-05] MEDS ORDERED: Dextrose 50% SYRINGE Inj (50 ml) IV STA (19:44)
[2018-08-06] MEDS: (Novolog) Insulin Aspart, Recombinant 100 u/ml 10 ml vial SC SCH ×3 (08:39→16:58)
[2018-08-06] MEDS: Pantoprazole 40 mg EC Tab PO SCH (09:25)
[2018-08-06 11:54] LABS: BASO # 0.1 K/uL (0.0-0.2); BASO % 0.8 % (0.0-2.0); EOS # 0.1 K/uL (0.0-0.7); EOS % 1.8 % (0.0-4.0); HEMOGLOBIN 8.3 g/dL (12.0-18.0); LYMPH # 1.3 K/uL (1.0-4.3); LYMPH % 17.7 % (20.0-40.0); MEAN CELL VOLUME 82.9 fL (80.0-94.0); MEAN CORPUSCULAR HEMOGLOBIN 27.9 pg (27.0-31.0); MEAN CORPUSCULAR HGB CONC 33.7 g/dL (33.0-37.0); MEAN PLATELET VOLUME 8.6 fL (7.2-11.7); MONO # 0.5 K/uL (0.0-0.8); MONO % 6.7 % (0.0-10.0); NEUT # 5.4 K/uL (1.8-7.0); NRBC % 0.2 % (0.0-2.0); RBC 2.98 Mil/uL (4.40-5.90); RED CELL DISTRIBUTION WIDTH 14.4 % (11.5-14.5); WHITE BLOOD COUNT 7.3 K/uL (4.8-10.8)
[2018-08-06 12:41] LABS: URINE BACTERIA OCC (<OCC); URINE BILIRUBIN NEGATIVE (NEGATIVE); URINE BLOOD 2+ (NEGATIVE); URINE CLARITY Clear (Clear); URINE COLOR Straw (YELLOW); URINE GLUCOSE (UA) 3+ mg/dL (Normal); URINE LEUKOCYTE ESTERASE NEG Leu/uL (Negative); URINE PROTEIN 2+ mg/dL (NEGATIVE); URINE UROBILINOGEN NORMAL mg/dL (0.2-1.0)
--- NOTE | 2018-08-06 13:24 | CP.PCM.CON ---
<Fidencio Graf - Last Filed: 08/06/18 13:18> History of Present Illness - History of Present Illness History of Present Illness: Fidencio Graf D.O. PGY-3, Internal Medicine Resident, Nephrology Consultation Note 28 year old male with a PMH of DM1 and HTN who presented for ER with compalints of pain in his back and neck and was found to be in mild DKA. Nephrology consultation was requested for uncontrolled HTN as well proteinuria. Patient was seen and examined at bedside while having lunch. Patient describes story that first brought him in when he started to feel more stressed and was having back pain and neck pain. Patient of note was seen personally back in May for an admission having to do with hypoglycemia due to life stressors including homelessness (was living in friend's house) and unemployment. Of note patient is "in the same living set up" but now has a job and so states things should get better. At this time patient has no acute complaints and states that he only wants get better health anne. Review of Systems - Constitutional Constitutional: absent: Anorexia, Chills - EENT Eyes: absent: Discharge, Dry Eye Ears: absent: Decreased Hearing, Ear Discharge Nose/Mouth/Throat: absent: Epistaxis, Nose Pain - Cardiovascular Cardiovascular: absent: Chest Pain, Diaphoresis, Dyspnea - Respiratory Respiratory: absent: Cough, Hemoptysis, Wheezing - Gastrointestinal Gastrointestinal: absent: Abdominal Pain, Nausea, Vomiting - Genitourinary Genitourinary: absent: Dysuria, Hematuria - Musculoskeletal Musculoskeletal: absent: Joint Swelling, Muscle Cramps, Numbness, Stiffness, Tingling - Integumentary Integumentary: absent: Pruritus, Rash, Skin Pain, Wounds - Neurological Neurological: absent: Syncope, Tingling, Tremor Past Patient History - Infectious Disease Hx of Infectious Diseases: None - Tetanus Immunizations Tetanus Immunization: Unknown - Past Medical History & Family History Past Medical History?: Yes - Past Social History Smoking Status: denies smo - CARDIAC Hx Hypertension: Yes - PULMONARY Hx Respiratory Disorders: No - NEUROLOGICAL Hx Neurological Disorder: No - HEENT Hx HEENT Problems: No - RENAL Hx Chronic Kidney Disease: No - ENDOCRINE/METABOLIC Hx Endocrine Disorders: Yes (SEE COMMENT) Hx Diabetes Mellitus Type 1: Yes - HEMATOLOGICAL/ONCOLOGICAL Hx Blood Disorders: No - INTEGUMENTARY Hx Dermatological Problems: Yes Other/Comment: rle healed wound dry discolored skin dry thick toenails dry dark discolored toes, dry skin to knees, generalized dry skin to body, lle 1.5cm x 1cm dry wound to top of foot light and brosn in color, dry thick toenails, dark discolored leathery skin, scar to posterior leg from ankle to below calf from debridement of osteomylitis 12 cm long pink red brown and white dry skin - MUSCULOSKELETAL/RHEUMATOLOGICAL Hx Falls: No - GASTROINTESTINAL Hx Gastrointestinal Disorders: No - GENITOURINARY/GYNECOLOGICAL Hx Genitourinary Disorders: No - PSYCHIATRIC Hx Substance Use: Yes (marijuana user) - SURGICAL HISTORY Hx Surgeries: Yes (SEE COMMENT) Other/Comment: Left foot surgery with graft - ANESTHESIA Hx Anesthesia: Yes Hx Anesthesia Reactions: No Hx Malignant Hyperthermia: No Meds Allergies/Adverse Reactions: Allergies Allergy/AdvReac Type Severity Reaction Status Date / Time pollen extracts Allergy Intermediate ITCHING Verified 08/04/18 03:48 - Medications Medications: Current Medications Dextrose (Dextrose 50% Inj) 0 ml IV STAT PRN; Protocol PRN Reason: Hypoglycemia Protocol Dextrose (Glutose 15) 0 gm PO ONCE PRN; Protocol PRN Reason: Hypoglycemia Protocol Glucagon (Glucagen Diagnostic Kit) 0 mg IM STAT PRN; Protocol PRN Reason: Hypoglycemia Protocol Heparin Sodium (Porcine) (Heparin) 5,[address] [facility] Last Admin: 08/06/18 06:55 Dose: Not Given Dextrose (Dextrose 5% In Water 1000 Ml) 1,000 mls @ 0 mls/hr IV .Q0M PRN; Protocol; Per Protocol PRN Reason: Hypoglycemia Protocol Insulin Aspart (Novolog) [address] [facility] Last Admin: 08/06/18 12:30 Dose: 8 unit Insulin Detemir (Levemir) 30 unit SC [facility] Lisinopril (Zestril) [address] [facility] Ondansetron HCl (Zofran Inj) 4 mg IVP Q4 PRN PRN Reason: Nausea/Vomiting Last Admin: 08/06/18 06:56 Dose: 4 mg Pantoprazole Sodium (Protonix Ec Tab) [address] [facility] Last Admin: 08/06/18 09:25 Dose: 40 mg Physical Exam - Constitutional Appears: Non-toxic, No Acute Distress - Head Exam Head Exam: ATRAUMATIC, NORMOCEPHALIC - Eye Exam Eye Exam: EOMI, PERRL. absent: Scleral icterus - ENT Exam ENT Exam: Mucous Membranes Moist, Normal Oropharynx - Neck Exam Neck exam: Negative for: Lymphadenopathy, Thyromegaly - Respiratory Exam Respiratory Exam: Clear to Auscultation Bilateral. absent: Rales, Rhonchi, Wheezes - Cardiovascular Exam Cardiovascular Exam: RRR, +S1, +S2. absent: Gallop, Rubs, Systolic Murmur - GI/Abdominal Exam GI & Abdominal Exam: Normal Bowel Sounds, Soft. absent: Distended, Tenderness - Extremities Exam Extremities exam: Positive for: joint swelling (left ankle, chronic from previous osteomyelitis), pedal edema (trace L>R). Negative for: calf tenderness - Back Exam Back exam: absent: paraspinal tenderness, vertebral tenderness - Neurological Exam Neurological exam: Alert, CN II-XII Intact, Oriented x3 - Psychiatric Exam Psychiatric exam: Normal Affect, Normal Mood - Skin Skin Exam: Dry, Intact, Warm Results - Vital Signs Recent Vital Signs: Last Vital Signs Temp 97.4 F L 08/06/18 08:00 Pulse 100 H 08/06/18 08:00 Resp 20 08/06/18 08:00 BP 165/104 H 08/06/18 08:00 Pulse Ox 99 08/06/18 08:00 - Labs Result Diagrams: 08/06/18 11:41 08/05/18 23:08 Labs: Laboratory Results - last 24 hr 08/05/18 08/05/18 08/05/18 16:58 17:19 20:24 WBC RBC Hgb Hct MCV MCH MCHC RDW Plt Count MPV Neut % (Auto) Lymph % (Auto) Jewell % (Auto) Eos % (Auto) Baso % (Auto) Neut # (Auto) Lymph # (Auto) Jewell # (Auto) Eos # (Auto) Baso # (Auto) Sodium 136 Potassium 5.8 H Chloride 101 Carbon Dioxide 23 Anion Gap 18 BUN 23 H Creatinine 1.3 Est GFR ( Amer) > 60 Est GFR (Non-Af Amer) > 60 POC Glucose (mg/dL) 263 H 300 H Random Glucose 297 H Calcium 9.5 Urine Color Urine Clarity Urine pH Ur Specific Conrad Urine Protein Urine Glucose (UA) Urine Ketones Urine Blood Urine Nitrate Urine Bilirubin Urine Urobilinogen Ur Leukocyte Esterase Urine WBC (Auto) Urine RBC (Auto) Urine Bacteria 08/05/18 08/05/18 08/06/18 21:59 23:08 07:06 WBC RBC Hgb Hct MCV MCH MCHC RDW Plt Count MPV Neut % (Auto) Lymph % (Auto) Jewell % (Auto) Eos % (Auto) Baso % (Auto) Neut # (Auto) Lymph # (Auto) Jewell # (Auto) Eos # (Auto) Baso # (Auto) Sodium Potassium 5.5 H Chloride Carbon Dioxide Anion Gap BUN Creatinine Est GFR ( Amer) Est GFR (Non-Af Amer) POC Glucose (mg/dL) 276 H 163 H Random Glucose Calcium Urine Color Urine Clarity Urine pH Ur Specific Conrad Urine Protein Urine Glucose (UA) Urine Ketones Urine Blood Urine Nitrate Urine Bilirubin Urine Urobilinogen Ur Leukocyte Esterase Urine WBC (Auto) Urine RBC (Auto) Urine Bacteria 08/06/18 08/06/18 08/06/18 11:34 11:41 12:33 WBC 7.3 RBC 2.98 L Hgb 8.3 L Hct 24.7 L MCV 82.9 MCH 27.9 MCHC 33.7 RDW 14.4 Plt Count 350 MPV 8.6 Neut % (Auto) 73.0 Lymph % (Auto) 17.7 L Jewell % (Auto) 6.7 Eos % (Auto) 1.8 Baso % (Auto) 0.8 Neut # (Auto) 5.4 Lymph # (Auto) 1.3 Jewell # (Auto) 0.5 Eos # (Auto) 0.1 Baso # (Auto) 0.1 Sodium Potassium Chloride Carbon Dioxide Anion Gap BUN Creatinine Est GFR ( Amer) Est GFR (Non-Af Amer) POC Glucose (mg/dL) 258 H Random Glucose Calcium Urine Color Straw Urine Clarity Clear Urine pH 5.0 Ur Specific Conrad 1.011 Urine Protein 2+ H Urine Glucose (UA) 3+ H Urine Ketones Negative Urine Blood 2+ H Urine Nitrate Negative Urine Bilirubin Negative Urine Urobilinogen Normal Ur Leukocyte Esterase Neg Urine WBC (Auto) < 1 Urine RBC (Auto) 23 H Urine Bacteria Occ H Assessment & Plan - Assessment and Plan (Free Text) Assessment: 28 year old male with a PMH of DM1 and HTN who presented for ER with compalints of pain in his back and neck and was found to be in mild DKA. Nephrology consultation was requested for uncontrolled HTN as well proteinuria. Plan: Uncontrolled HTN Uncontrolled DM type 1 CKD likely 2/2 above Proteinuria Hyperkalemia Hematuria Normocytic normochromic anemia Importance of medication compliance re-inforced Will add amlodipine 10mg po QD with dose now, will wait to increase lisinopril given his current hyperkalemia Proteinuria seems to have been present for about 1 year now, work up ordered including urine lytes, microalbumin/Cr Given hematuria which seems to have worsened, although this could be due to his uncontrolled DM1, will also order DARWIN w/ refl and ANCA screen and RPR Has gotten work up for anemia in the past, will repeat reticulocyte count, however given normal ferritin with low iron, TIBC and sat seen last month he likely has anemia of chronic disease Will follow with you Patient was seen and examined and case was discussed at length with attending physician Thank you for the pleasure of participating in the care of this interesting patient - Date & Time Date: 08/06/18 Time: 13:26 <Trent Toure - Last Filed: 08/07/18 05:48> Meds - Medications Medications: Current Medications Amlodipine Besylate (Norvasc) [address] [facility] Last Admin: 08/06/18 13:57 Dose: 10 mg Dextrose (Dextrose 50% Inj) 0 ml IV STAT PRN; Protocol PRN Reason: Hypoglycemia Protocol Dextrose (Glutose 15) 0 gm PO ONCE PRN; Protocol PRN Reason: Hypoglycemia Protocol Glucagon (Glucagen Diagnostic Kit) 0 mg IM STAT PRN; Protocol PRN Reason: Hypoglycemia Protocol Heparin Sodium (Porcine) (Heparin) 5,[address] [facility] Last Admin: 08/06/18 21:38 Dose: Not Given Dextrose (Dextrose 5% In Water 1000 Ml) 1,000 mls @ 0 mls/hr IV .Q0M PRN; Protocol; Per Protocol PRN Reason: Hypoglycemia Protocol Insulin Aspart (Novolog) [address] [facility] Last Admin: 08/06/18 16:58 Dose: 8 unit Insulin Detemir (Levemir) [address] [facility] Last Admin: 08/06/18 21:38 Dose: 30 unit Lisinopril (Zestril) [address] [facility] Ondansetron HCl (Zofran Inj) 4 mg IVP Q4 PRN PRN Reason: Nausea/Vomiting Last Admin: 08/06/18 06:56 Dose: 4 mg Pantoprazole Sodium (Protonix Ec Tab) 40 mg PO DAILY [facility] Last Admin: 08/06/18 09:25 Dose: 40 mg Results - Vital Signs Recent Vital Signs: Last Vital Signs Temp 99.1 F 08/07/18 00:00 Pulse 104 H 08/07/18 00:00 Resp 20 08/07/18 00:00 BP 134/89 08/07/18 00:00 Pulse Ox 99 08/07/18 00:00 - Labs Result Diagrams: 08/06/18 11:41 08/05/18 23:08 Labs: Laboratory Results - last 24 hr 08/06/18 08/06/18 08/06/18 07:06 11:34 11:41 WBC 7.3 RBC 2.98 L Hgb 8.3 L Hct 24.7 L MCV 82.9 MCH 27.9 MCHC 33.7 RDW 14.4 Plt Count 350 MPV 8.6 Neut % (Auto) 73.0 Lymph % (Auto) 17.7 L Jewell % (Auto) 6.7 Eos % (Auto) 1.8 Baso % (Auto) 0.8 Neut # (Auto) 5.4 Lymph # (Auto) 1.3 Jewell # (Auto) 0.5 Eos # (Auto) 0.1 Baso # (Auto) 0.1 Retic Count POC Glucose (mg/dL) 163 H 258 H Urine Color Urine Clarity Urine pH Ur Specific Conrad Urine Protein Urine Glucose (UA) Urine Ketones Urine Blood Urine Nitrate Urine Bilirubin Urine Urobilinogen Ur Leukocyte Esterase Urine WBC (Auto) Urine RBC (Auto) Urine Bacteria RPR 08/06/18 08/06/18 08/06/18 12:33 16:11 17:19 WBC RBC Hgb Hct MCV MCH MCHC RDW Plt Count MPV Neut % (Auto) Lymph % (Auto) Jewell % (Auto) Eos % (Auto) Baso % (Auto) Neut # (Auto) Lymph # (Auto) Jewell # (Auto) Eos # (Auto) Baso # (Auto) Retic Count POC Glucose (mg/dL) 230 H Urine Color Straw Urine Clarity Clear Urine pH 5.0 Ur Specific Conrad 1.011 Urine Protein 2+ H Urine Glucose (UA) 3+ H Urine Ketones Negative Urine Blood 2+ H Urine Nitrate Negative Urine Bilirubin Negative Urine Urobilinogen Normal Ur Leukocyte Esterase Neg Urine WBC (Auto) < 1 Urine RBC (Auto) 23 H Urine Bacteria Occ H RPR Nonreactive 08/06/18 08/06/18 17:19 21:05 WBC RBC Hgb Hct MCV MCH MCHC RDW Plt Count MPV Neut % (Auto) Lymph % (Auto) Jewell % (Auto) Eos % (Auto) Baso % (Auto) Neut # (Auto) Lymph # (Auto) Jewell # (Auto) Eos # (Auto) Baso # (Auto) Retic Count 1.8 H D POC Glucose (mg/dL) 118 H Urine Color Urine Clarity Urine pH Ur Specific Conrad Urine Protein Urine Glucose (UA) Urine Ketones Urine Blood Urine Nitrate Urine Bilirubin Urine Urobilinogen Ur Leukocyte Esterase Urine WBC (Auto) Urine RBC (Auto) Urine Bacteria RPR Attending/Attestation - Attestation I have personally seen and examined this patient.: Yes I have fully participated in the care of the patient.: Yes I have reviewed all pertinent clinical information: Yes Notes (Text): Patient seen and examined; I agree with the resident's note as above with the following additions/edits: Patient with history of DM I, uncontrolled htn, admitted with mild DKA that is currently resolved; nephrology being consulted for uncontrolled htn and renal insufficiency; History of inadequate medication adherence due to social conditions; restarted on low dose KEYONNA inhibitor here but dose limited by hyperkalemia, should improve with correction of insulin deficiency; for now, adding amlodipine for BP control ; will obtain workup for secondary causes of htn given young age of onset although CKD also contributory; Patient 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
--- NOTE | 2018-08-06 14:08 | CP.PCM.PN ---
<Danial Greenfield - Last Filed: 08/06/18 18:22> Subjective - Date & Time of Evaluation Date of Evaluation: 08/06/18 Time of Evaluation: 14:05 - Subjective Subjective: PGY-[address] Anderson Patient is a 28 year old male with past medical history of T1DM and HTN who presented to [facility] on 08/04 complaining of mild abdominal pain, chills, nausea, vomiting, and diarrhea for approximately 3 days. Patient seen and examined at bedside this morning. Patient states he is feeling better and is now becoming anxious to go home and get back to work. He is able to tolerate food PO. Pt states he takes is insulin daily and regularly monitors his blood sugars at home. Denies fevers, committing, headache, changes to vision, sore throat, cough, shortness of breath, chest pain, abdominal pain, diarrhea, constipation, neuropathy, dysuria. Objective - Vital Signs/Intake and Output Vital Signs (last 24 hours): Temp Pulse Resp BP Pulse Ox 97.4 F L 100 H 20 165/104 H 99 08/06/18 08:00 08/06/18 08:00 08/06/18 08:00 08/06/18 08:00 08/06/18 08:00 Intake and Output: 08/06/18 08/06/18 06:59 18:59 Intake Total 350 200 Balance 350 200 - Medications Medications: Current Medications Amlodipine Besylate (Norvasc) 10 mg PO DAILY [facility] Last Admin: 08/06/18 13:57 Dose: 10 mg Dextrose (Dextrose 50% Inj) 0 ml IV STAT PRN; Protocol PRN Reason: Hypoglycemia Protocol Dextrose (Glutose 15) 0 gm PO ONCE PRN; Protocol PRN Reason: Hypoglycemia Protocol Glucagon (Glucagen Diagnostic Kit) 0 mg IM STAT PRN; Protocol PRN Reason: Hypoglycemia Protocol Heparin Sodium (Porcine) (Heparin) 5,000 units SC Q8 [facility] Last Admin: 08/06/18 13:58 Dose: 5,000 units Dextrose (Dextrose 5% In Water 1000 Ml) 1,000 mls @ 0 mls/hr IV .Q0M PRN; Protocol; Per Protocol PRN Reason: Hypoglycemia Protocol Insulin Aspart (Novolog) 8 unit SC ACTID [facility] Last Admin: 08/06/18 12:30 Dose: 8 unit Insulin Detemir (Levemir) 30 unit SC HS [facility] Lisinopril (Zestril) 10 mg PO DAILY [facility] Ondansetron HCl (Zofran Inj) 4 mg IVP Q4 PRN PRN Reason: Nausea/Vomiting Last Admin: 08/06/18 06:56 Dose: 4 mg Pantoprazole Sodium (Protonix Ec Tab) 40 mg PO DAILY [facility] Last Admin: 08/06/18 09:25 Dose: 40 mg - Labs Labs: 08/06/18 11:41 08/05/18 23:08 - Head Exam Head Exam: ATRAUMATIC, NORMAL INSPECTION - Eye Exam Eye Exam: EOMI, Normal appearance - ENT Exam ENT Exam: Mucous Membranes Moist - Respiratory Exam Respiratory Exam: Clear to Ausculation Bilateral, NORMAL BREATHING PATTERN - GI/Abdominal Exam GI & Abdominal Exam: Soft, Normal Bowel Sounds. absent: Tenderness - Extremities Exam Extremities Exam: Normal Capillary Refill, Pedal Edema (LLE pedal edema). absent: Tenderness Additional comments: +LLE edema and chronic skin changes. History Charcot foot. - Neurological Exam Neurological Exam: Alert, Awake, CN II-XII Intact, Normal Gait, Oriented x3 Neuro motor strength exam: Left Upper Extremity: 5, Right Upper Extremity: 5, Left Lower Extremity: 5, Right Lower Extremity: 5 - Skin Skin Exam: Dry, Intact, Normal Color, Warm Additional comments: +scarring on hands and arms b/l Assessment and Plan - Assessment and Plan (Free Text) Assessment: Asssessment/Plan 1) DKA, Mild / Uncontrolled Type 1 Diabetes: * CMP * Initial random glucpse 424 * Initial AG 21 (5:50) --> resolved * Initial K 5.5 (08/04 - 5:50) --> 4.4 (10:45) -> 5.3 (08/05); IVF and potassium stopped. Follow up CMP. * EKG - NSR, normal EKG * Initial BUN/Cr elevated (28/1.7) --> Improved (26/1.4) --> 22/13 (08/05) * Na 139 - No evidence of dilutional hyponatremia, continue to monitor * Initial serum tested + B-Hydroxybutyrate * CXR (08/04) - No active pulmonary disease * Hypoglycemic protocol initiated * Accuchecks ACHS; POC glucose ranging from 440-50, more controlled today * Blood cultures - Negative at 24 hours * HgB A1C - 10.3 * Severely uncontrolled DM * Patient counseled that he needs to establish a primary care doctor and county administrator to control his diabetes * Restarted home insulin - Aspart 8U SC ACTID, Levemir 30U SC HS --> Changed to Aspart 8U SC ACTID, Levemir 20U SC HS -> increased Levemir back to 30 HS today (Original home dose) * Podiatry consulted for chronic LLE edema and skin changes, Dr. Manny Myles. Help appreciated. * Spoke with patient's Varnishing Unit Operator, Dr. Manny Myles. He knows the patient well from his practice and states that the patient recently had an acute case of Charcot foot leaving him with chronic bony changes and edema. This will eventually require surgery as an outpatient. However he does not feel this patient needs to be seen in the hospital for his foot issues at this time. The main goal for this patient is to control his blood glucose as best as possible to prevent further sequelae. * Diabetic diet * Fluid management: * S/p NS IVF bolus x5 in ER * KCl 20mEQ in NS 1,000mL @ 100cc/hr --> STOPPED IVF/Potassium * Monitor electrolytes 2) HTN: * BP range 103/62 - 179/117 * History of proteinuria * Lisinopril 10mg PO daily * Nephro Consulted, Dr. Toure - Help appreciated: * Added amlodipine 10mg PO daily * Work up for uncontrolled HTN * -Urine electrolytes * -Microalbumin/Creatinine * -DARWIN * -ANCA screen * -RPR * Discussed need to establish PMD 3) Anemia: * CBC w/ dif * HgB 7.7 * Appears to be chronically anemic from past visits * May require outpatient anemia workup * Per NephroDr Toure- based on anemia workup from visit one month prior, most likely anemia of chronic disease 4) PPx: * DVT: Heparin 5,000 U SC Q8 * GI: Protonix 40mg Daily Dispo: Patient has severely uncontrolled DM I. Prior to being discharged, patient's blood sugars must remain stable. He also has had uncontrolled hypertension and is being followed by Nephro for workup to determine the cause. Assessment and Plan Discussed with Dr. Monica Greenfield, PGY-1 <Carmen Anderson - Last Filed: 08/08/18 15:21> Objective - Vital Signs/Intake and Output Vital Signs (last 24 hours): Temp Pulse Resp BP Pulse Ox 97.9 F 90 20 126/89 99 08/08/18 07:41 08/08/18 07:41 08/08/18 07:41 08/08/18 07:41 08/08/18 07:41 Intake and Output: 08/08/18 08/08/18 06:59 18:59 Intake Total 300 300 Balance 300 300 - Medications Medications: Current Medications Amlodipine Besylate (Norvasc) 5 mg PO DAILY [facility] Last Admin: 08/08/18 10:09 Dose: 5 mg Dextrose (Dextrose 50% Inj) 0 ml IV STAT PRN; Protocol PRN Reason: Hypoglycemia Protocol Dextrose (Glutose 15) 0 gm PO ONCE PRN; Protocol PRN Reason: Hypoglycemia Protocol Glucagon (Glucagen Diagnostic Kit) 0 mg IM STAT PRN; Protocol PRN Reason: Hypoglycemia Protocol Heparin Sodium (Porcine) (Heparin) 5,000 units SC Q8 [facility] Last Admin: 08/08/18 13:10 Dose: Not Given Dextrose (Dextrose 5% In Water 1000 Ml) 1,000 mls @ 0 mls/hr IV .Q0M PRN; Protocol; Per Protocol PRN Reason: Hypoglycemia Protocol Ferric Sodium Gluconate Complex 125 mg/ Sodium Chloride 110 mls @ 110 mls/hr IVPB DAILY [facility] Last Admin: 08/07/18 15:20 Dose: 110 mls/hr Insulin Aspart (Novolog) 8 unit SC ACTID [facility] Last Admin: 08/08/18 12:25 Dose: 8 unit Insulin Detemir (Levemir) 30 unit SC HS [facility] Last Admin: 08/07/18 22:01 Dose: 30 unit Lisinopril (Zestril) 10 mg PO DAILY [facility] Last Admin: 08/08/18 10:09 Dose: 10 mg Ondansetron HCl (Zofran Inj) 4 mg IVP Q4 PRN PRN Reason: Nausea/Vomiting Last Admin: 08/06/18 06:56 Dose: 4 mg Pantoprazole Sodium (Protonix Ec Tab) 40 mg PO DAILY [facility] Last Admin: 08/08/18 10:09 Dose: 40 mg - Labs Labs: 08/08/18 07:16 08/08/18 07:16 Attending/Attestation - Attestation I have personally seen and examined this patient.: Yes I have fully participated in the care of the patient.: Yes I have reviewed all pertinent clinical information, including history, physical exam and plan: Yes Notes (Text): Seen and examined by me. aminata has no complain.His blood pressure is high and has proteinuria. D/W Dr Toure. We will follow his blood pressure d/w patient about out patient renal follow up and continue insulin and adjust the dose of insulin according to the sugar level Patient has swollen right ankle,h/o oesteomylitis and charcot joint Chronic anemia also may be due to some infection . As per DR Toure his severe anemia may be due to some infection in addition to renal disease. Assessment and the plan discussed with the resident and I agree with the documentation
[2018-08-06] MEDS: Insulin Detemir 100 units/ml Vial (Levemir) SC SCH (21:38)
[2018-08-07 07:29] LABS: BASO # 0.1 K/uL (0.0-0.2); BASO % 1.3 % (0.0-2.0); EOS # 0.1 K/uL (0.0-0.7); EOS % 2.2 % (0.0-4.0); HEMOGLOBIN 7.8 g/dL (12.0-18.0); LYMPH # 1.5 K/uL (1.0-4.3); LYMPH % 30.6 % (20.0-40.0); MEAN CELL VOLUME 82.1 fL (80.0-94.0); MEAN CORPUSCULAR HGB CONC 34.2 g/dL (33.0-37.0); MEAN PLATELET VOLUME 8.5 fL (7.2-11.7); MONO # 0.4 K/uL (0.0-0.8); MONO % 8.7 % (0.0-10.0); NEUT # 2.9 K/uL (1.8-7.0); NEUT % 57.2 % (50.0-75.0); NRBC % 0.1 % (0.0-2.0); RBC 2.77 Mil/uL (4.40-5.90); RED CELL DISTRIBUTION WIDTH 14.4 % (11.5-14.5)
[2018-08-07 07:54] LABS: IRON 30 ug/dL (49-181)
[2018-08-07 08:04] LABS: % IRON SATURATION 12 (20-55); TOTAL IRON BINDING CAPACITY 244 ug/dL (250-450)
[2018-08-07 08:11] LABS: ALB/GLOB RATIO 0.9 (1.0-2.1); ALBUMIN 3.5 g/dL (3.5-5.0); ALT/SGPT 28 U/L (21-72); AST/SGOT 23 U/L (17-59); BLOOD UREA NITROGEN 29 mg/dL (9-20); CALCIUM 9.5 mg/dl (8.6-10.4); GFR NON-AFRICAN AMERICAN > 60
--- NOTE | 2018-08-07 08:18 | CP.PCM.PN ---
<Ashwin Torres - Last Filed: 08/07/18 15:15> Subjective - Date & Time of Evaluation Date of Evaluation: 08/07/18 Time of Evaluation: 08:11 - Subjective Subjective: Julian Torres D.O. PGY2 - Nephrology Progress Note Patient seen and examined this AM. Patient reported low blood sugar overnight. He was given juice with correction of bg. He denies headache, vision changes, chest pain, palpitation, shortness of breath, abdominal pain. BP appears to be stable. Objective - Vital Signs/Intake and Output Vital Signs (last 24 hours): Temp Pulse Resp BP Pulse Ox 99.1 F 104 H 20 134/89 99 08/07/18 00:00 08/07/18 00:00 08/07/18 00:00 08/07/18 00:00 08/07/18 00:00 Intake and Output: 08/07/18 08/07/18 06:59 18:59 Intake Total 540 Balance 540 - Medications Medications: Current Medications Amlodipine Besylate (Norvasc) 10 mg PO DAILY [facility] Last Admin: 08/06/18 13:57 Dose: 10 mg Dextrose (Dextrose 50% Inj) 0 ml IV STAT PRN; Protocol PRN Reason: Hypoglycemia Protocol Dextrose (Glutose 15) 0 gm PO ONCE PRN; Protocol PRN Reason: Hypoglycemia Protocol Glucagon (Glucagen Diagnostic Kit) 0 mg IM STAT PRN; Protocol PRN Reason: Hypoglycemia Protocol Heparin Sodium (Porcine) (Heparin) 5,000 units SC Q8 [facility] Last Admin: 08/06/18 21:38 Dose: Not Given Dextrose (Dextrose 5% In Water 1000 Ml) 1,000 mls @ 0 mls/hr IV .Q0M PRN; Protocol; Per Protocol PRN Reason: Hypoglycemia Protocol Insulin Aspart (Novolog) 8 unit SC ACTID [facility] Last Admin: 08/06/18 16:58 Dose: 8 unit Insulin Detemir (Levemir) 30 unit SC HS [facility] Last Admin: 08/06/18 21:38 Dose: 30 unit Lisinopril (Zestril) 10 mg PO DAILY [facility] Ondansetron HCl (Zofran Inj) 4 mg IVP Q4 PRN PRN Reason: Nausea/Vomiting Last Admin: 08/06/18 06:56 Dose: 4 mg Pantoprazole Sodium (Protonix Ec Tab) 40 mg PO DAILY [facility] Last Admin: 08/06/18 09:25 Dose: 40 mg - Labs Labs: 08/07/18 07:09 08/07/18 07:09 - Constitutional Appears: No Acute Distress - Head Exam Head Exam: ATRAUMATIC, NORMAL INSPECTION, NORMOCEPHALIC - Eye Exam Eye Exam: EOMI, PERRL - ENT Exam ENT Exam: Mucous Membranes Moist - Neck Exam Neck Exam: absent: Full ROM - Respiratory Exam Respiratory Exam: Clear to Ausculation Bilateral, NORMAL BREATHING PATTERN. absent: Rhonchi, Wheezes - Cardiovascular Exam Cardiovascular Exam: REGULAR RHYTHM, +S1, +S2 - GI/Abdominal Exam GI & Abdominal Exam: Soft, Normal Bowel Sounds. absent: Tenderness - Extremities Exam Extremities Exam: Full ROM Additional comments: Left ankle swelling, according to notes chronic 2/2 prev OM - Neurological Exam Neurological Exam: Alert, Awake, Oriented x3 Neuro motor strength exam: Left Upper Extremity: 5, Right Upper Extremity: 5, Left Lower Extremity: 5, Right Lower Extremity: 5 - Psychiatric Exam Psychiatric exam: Normal Affect, Normal Mood - Skin Skin Exam: Dry, Intact Assessment and Plan - Assessment and Plan (Free Text) Assessment: 28 year old AA male with past medical history of DM1, HTN, homelessness who presented to [facility] complaining of back and neck pain. Patient was evaluated and found to have elevated blood glucose and anion gap. Patient admitted for DKA and proteinuria. Plan: Uncontrolled HTN - improved Proteinuria - Chronic Anemia of Chronic disease Patient blood pressure has been stable, continue with amlodpine 10mg, Lisinopril 10mg Tolerating diet, AG closed Reticulocyte count 1.8, signaling hyproproliferation RPR negative, DARWIN w/ reflex, ANCA pending Urine lytes pending Patient noted to have anemia likely secondary to iron deficiency and anemia of chronic disease Will order iron IV and EPO for patient Advise against transfusion in this type of patient as he is young and could present problems in future if his kidney disease progresses to the need for potential transplant Important for patient to have appropriate outpatient follow up Further recs per Dr. Toure Patient seen, case and plan discussed with attending, Dr. Toure <Trent Toure - Last Filed: 08/08/18 06:51> Objective - Vital Signs/Intake and Output Vital Signs (last 24 hours): Temp Pulse Resp BP Pulse Ox 98.8 F 103 H 20 115/73 100 08/07/18 15:00 08/07/18 15:00 08/07/18 15:00 08/07/18 15:00 08/07/18 15:00 Intake and Output: 08/07/18 08/08/18 18:59 06:59 Intake Total 300 300 Balance 300 300 - Medications Medications: Current Medications Amlodipine Besylate (Norvasc) 5 mg PO DAILY [facility] Dextrose (Dextrose 50% Inj) 0 ml IV STAT PRN; Protocol PRN Reason: Hypoglycemia Protocol Dextrose (Glutose 15) 0 gm PO ONCE PRN; Protocol PRN Reason: Hypoglycemia Protocol Glucagon (Glucagen Diagnostic Kit) 0 mg IM STAT PRN; Protocol PRN Reason: Hypoglycemia Protocol Heparin Sodium (Porcine) (Heparin) 5,000 units SC Q8 [facility] Last Admin: 08/08/18 05:00 Dose: Not Given Dextrose (Dextrose 5% In Water 1000 Ml) 1,000 mls @ 0 mls/hr IV .Q0M PRN; Protocol; Per Protocol PRN Reason: Hypoglycemia Protocol Ferric Sodium Gluconate Complex 125 mg/ Sodium Chloride 110 mls @ 110 mls/hr IVPB [facility] Last Admin: 08/07/18 15:20 Dose: 110 mls/hr Insulin Aspart (Novolog) 8 unit SC ACTID [facility] Last Admin: 08/07/18 17:15 Dose: 8 unit Insulin Detemir (Levemir) 30 unit SC HS [facility] Last Admin: 08/07/18 22:01 Dose: 30 unit Lisinopril (Zestril) 10 mg PO DAILY [facility] Last Admin: 08/07/18 10:14 Dose: 10 mg Ondansetron HCl (Zofran Inj) 4 mg IVP Q4 PRN PRN Reason: Nausea/Vomiting Last Admin: 08/06/18 06:56 Dose: 4 mg Pantoprazole Sodium (Protonix Ec Tab) 40 mg PO DAILY [facility] Last Admin: 08/07/18 10:14 Dose: 40 mg - Labs Labs: 08/07/18 07:09 08/07/18 07:09 Attending/Attestation - Attestation I have personally seen and examined this patient.: Yes I have fully participated in the care of the patient.: Yes I have reviewed all pertinent clinical information, including history, physical exam and plan: Yes Notes (Text): Patient seen and examined; I agree with the resident's note as above with the following additions/edits: 28 yo M w/ DM I, uncontrolled, htn, CKD, admitted with mild DKA; BP better controlled after adding amlodipine 10 mg; hyperkalemia improved on low K diet; will decrease amlodipine dose to 5 mg and see if can titrate lisinopril higher given patient's proteinuria; 3.3 g/g proteinuria by random urine protein/creat ratio, close to nephrotic range; seems excessive given age and only mild renal insuficiency, but 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
[2018-08-07] MEDS: (Novolog) Insulin Aspart, Recombinant 100 u/ml 10 ml vial SC SCH ×3 (08:32→17:15)
[2018-08-07] MEDS: Pantoprazole 40 mg EC Tab PO SCH (10:14)
[2018-08-07] MEDS ORDERED: EPOETIN ALFA 10,000 UNIT/ML ML IV ONE (12:45)
[2018-08-07] MEDS ORDERED: Ferric Sodium Gluconat Complex 62.5 mg/5 ml Vial IVPB SCH (12:45)
--- NOTE | 2018-08-07 13:05 | MRI ---
Date of service: 08/07/2018 PROCEDURE: MRI of the left ankle without contrast HISTORY: Left ankle swelling, r/o osteomylitis COMPARISON: Comparison is made to the previous x-ray of the left ankle dated 07/11/2018. TECHNIQUE: Axial coronal and sagittal MRI images of the left ankle were obtained without IV contrast administration. FINDINGS: There are foci of cortical erosion and small destruction noted at the posterior aspect of the left talar dome. There are foci of cortical destruction and large subcortical/subchondral cystic formation or geode noted at the posterior aspect of the articular surface of distal tibia. There are patchy bone marrow edema noted around the right knee more prominent at the left talar dome and body. The possibility of osteomyelitis should be considered. The differential consideration includes advance neuropathic / charcot joint. There is moderate amount of joint effusion. Diffuse soft tissue edema noted. There is a diffuse increased signal in the muscles and tendons suggestive of tendinopathy and myositis. Small to moderate amount of fluid surrounding tendon around the left ankle including the flexor and extensor tendons also suggestive of tendinopathy. IMPRESSION: Foci of bony erosion and cortical destruction noted at the talar dome and posterior aspect of the distal tibia articular surface. The differential consideration includes osteomyelitis septic arthritis and neuropathy joint. Diffuse heterogeneous bone marrow edema in the osseous structures around the left ankle. Diffuse heterogeneous increased soft tissue signal suggestive of myositis and tendinopathy. Moderate joint effusion.
[2018-08-07] MEDS: Ferric Sodium Gluconat Complex 125 MG in Sodium Chloride 0.9% 100 ML IVPB SCH (15:20)
--- NOTE | 2018-08-07 18:56 | CP.PCM.CON ---
History of Present Illness - History of Present Illness History of Present Illness: 28 year old male with past medical history of DM I and HTN presents to [facility] on 08/04 complaining of mild abdominal pain, chills, nausea, vomiting, and diarrhea for duration of 3 days. referred for ID eval of left foot r/o OM hx of charcot foot PMHx: DM I, HTN Medications: Insulin Aspart 8 units TID and Insulin Levemir 30 units at night. Lisinopril 5 mg PO daily PSHx: Biopsy L calcaneus for OM Allx: NKDA, NKFA, seasonal allergies FHx: T1DM, HTN Social: neg Review of Systems - Review of Systems All systems: reviewed and no additional remarkable complaints except - Constitutional Constitutional: As Per HPI - EENT Eyes: absent: As Per HPI, Blind Spots, Blurred Vision, Change in Vision, Decreased Night Vision, Diplopia, Discharge, Dry Eye, Exophthalmos, Floaters, Irritation, Itchy Eyes, Loss of Peripheral Vision, Pain, Photophobia, Requires Corrective Lenses, Sees Flashes, Spots in Vision, Tunnel Vision, Other Visual Disturbances, Loss of Vision, Other Nose/Mouth/Throat: absent: As Per HPI, Epistaxis, Nasal Congestion, Nasal Discharge, Nasal Obstruction, Nasal Trauma, Nose Pain, Post Nasal Drip, Sinus Pain, Sinus Pressure, Bleeding Gums, Change in Voice, Dental Pain, Dry Mouth, Dysphagia, Halitosis, Hoarsness, Lip Swelling, Mouth Lesions, Mouth Pain, Odynophagia, Sore Throat, Throat Swelling, Tongue Swelling, Facial Pain, Neck Pain, Neck Mass, Other - Cardiovascular Cardiovascular: absent: As Per HPI, Acrocyanosis, Chest Pain, Chest Pain at Rest , Chest Pain with Activity, Claudication, Diaphoresis, Dyspnea, Dyspnea on Exertion, Edema, Irregular Heart Rhythm, Pain Radiating to Arm/Neck/Jaw, Leg Edema, Leg Ulcers, Lightheadedness, Orthopnea, Palpitations, Paroxysmal Nocturnal Dyspnea, Pedal Edema, Radiating Pain, Rapid Heart Rate, Slow Heart Rate, Syncope, Other - Gastrointestinal Gastrointestinal: absent: As Per HPI, Abdominal Pain, Belching, Bloating, Change in Bowel Habits, Change in Stool Character, Coffee Ground Emesis, Constipation, Cramping, Diarrhea, Dyspepsia, Dysphagia, Early Satiety, Excessive Flatus, Fecal Incontinence, Heartburn, Hematemesis, Hematochezia, Loose Stools, Melena, Nausea, Odynophagia, Temesmus, Vomiting, Other - Genitourinary Genitourinary: absent: As Per HPI, Change in Urinary Stream, Difficulty Urinating, Dysuria, Flank Pain, Hematuria, Pyuria, Nocturia, Urinary Incontinence, Urinary Frequency, Urinary Hesitance, Urinary Urgency, Voiding Freq/Small Amts, Freq UTI, Hx Renal/Bladder Calculi, Hx /Renal Surgery, Bladder Distension, Other - Musculoskeletal Musculoskeletal: As Per HPI - Integumentary Integumentary: As Per HPI - Neurological Neurological: As Per HPI - Psychiatric Psychiatric: absent: As Per HPI, Abnormal Sleep Pattern, Anhedonia, Anxiety, Auditory Hallucinations, Behavioral Changes, Change in Appetite, Change in Libido, Confusion, Depression, Difficulty Concentrating, Hallucinations, Homicidal Ideation, Hopelessness, Irritability, Memory Loss, Mood Swings, Panic Attacks, Paranoia, Suicidal Ideation, Visual Hallucinations, Tactile Hallucinations, Other - Endocrine Endocrine: As Per HPI - Hematologic/Lymphatic Hematologic: absent: As Per HPI, Easy Bleeding, Easy Bruising, Lymphadenopathy, Other Past Patient History - Infectious Disease Hx of Infectious Diseases: None - Tetanus Immunizations Tetanus Immunization: Unknown - Past Medical History & Family History Past Medical History?: Yes - Past Social History Smoking Status: denies smo - CARDIAC Hx Hypertension: Yes - PULMONARY Hx Respiratory Disorders: No - NEUROLOGICAL Hx Neurological Disorder: No - HEENT Hx HEENT Problems: No - RENAL Hx Chronic Kidney Disease: No - ENDOCRINE/METABOLIC Hx Endocrine Disorders: Yes (SEE COMMENT) Hx Diabetes Mellitus Type 1: Yes - HEMATOLOGICAL/ONCOLOGICAL Hx Blood Disorders: No - INTEGUMENTARY Hx Dermatological Problems: Yes Other/Comment: rle healed wound dry discolored skin dry thick toenails dry dark discolored toes, dry skin to knees, generalized dry skin to body, lle 1.5cm x 1cm dry wound to top of foot light and brosn in color, dry thick toenails, dark discolored leathery skin, scar to posterior leg from ankle to below calf from debridement of osteomylitis 12 cm long pink red brown and white dry skin - MUSCULOSKELETAL/RHEUMATOLOGICAL Hx Falls: No - GASTROINTESTINAL Hx Gastrointestinal Disorders: No - GENITOURINARY/GYNECOLOGICAL Hx Genitourinary Disorders: No - PSYCHIATRIC Hx Substance Use: Yes (marijuana user) - SURGICAL HISTORY Hx Surgeries: Yes (SEE COMMENT) Other/Comment: Left foot surgery with graft - ANESTHESIA Hx Anesthesia: Yes Hx Anesthesia Reactions: No Hx Malignant Hyperthermia: No Meds Allergies/Adverse Reactions: Allergies Allergy/AdvReac Type Severity Reaction Status Date / Time pollen extracts Allergy Intermediate ITCHING Verified 08/04/18 03:48 - Medications Medications: Current Medications Amlodipine Besylate (Norvasc) 10 mg PO DAILY [facility] Last Admin: 08/07/18 10:14 Dose: 10 mg Dextrose (Dextrose 50% Inj) 0 ml IV STAT PRN; Protocol PRN Reason: Hypoglycemia Protocol Dextrose (Glutose 15) 0 gm PO ONCE PRN; Protocol PRN Reason: Hypoglycemia Protocol Glucagon (Glucagen Diagnostic Kit) 0 mg IM STAT PRN; Protocol PRN Reason: Hypoglycemia Protocol Heparin Sodium (Porcine) (Heparin) 5,000 units SC Q8 [facility] Last Admin: 08/07/18 15:21 Dose: Not Given Dextrose (Dextrose 5% In Water 1000 Ml) 1,000 mls @ 0 mls/hr IV .Q0M PRN; Protocol; Per Protocol PRN Reason: Hypoglycemia Protocol Ferric Sodium Gluconate Complex 125 mg/ Sodium Chloride 110 mls @ 110 mls/hr IVPB DAILY [facility] Stop: 08/14/18 10:59 Last Admin: 08/07/18 15:20 Dose: 110 mls/hr Insulin Aspart (Novolog) 8 unit SC ACTID [facility] Last Admin: 08/07/18 17:15 Dose: 8 unit Insulin Detemir (Levemir) 30 unit SC HS [facility] Last Admin: 08/06/18 21:38 Dose: 30 unit Lisinopril (Zestril) 10 mg PO DAILY [facility] Last Admin: 08/07/18 10:14 Dose: 10 mg Ondansetron HCl (Zofran Inj) 4 mg IVP Q4 PRN PRN Reason: Nausea/Vomiting Last Admin: 08/06/18 06:56 Dose: 4 mg Pantoprazole Sodium (Protonix Ec Tab) 40 mg PO DAILY [facility] Last Admin: 08/07/18 10:14 Dose: 40 mg Physical Exam - Constitutional Appears: Non-toxic, Chronically Ill - Head Exam Head Exam: NORMOCEPHALIC - Eye Exam Eye Exam: PERRL. absent: Scleral icterus - ENT Exam ENT Exam: Mucous Membranes Dry - Neck Exam Neck exam: Negative for: Lymphadenopathy - Respiratory Exam Respiratory Exam: Decreased Breath Sounds, Clear to Auscultation Bilateral - Cardiovascular Exam Cardiovascular Exam: REGULAR RHYTHM - GI/Abdominal Exam GI & Abdominal Exam: Diminished Bowel Sounds - Rectal Exam Rectal Exam: Deferred - Exam Exam: NORMAL INSPECTION - Extremities Exam Extremities exam: Negative for: pedal edema - Back Exam Back exam: absent: CVA tenderness (L), CVA tenderness (R) - Neurological Exam Neurological exam: Alert, CN II-XII Intact, Oriented x3, Reflexes Normal - Psychiatric Exam Psychiatric exam: Normal Mood - Skin Skin Exam: Dry Results - Vital Signs Recent Vital Signs: Last Vital Signs Temp 98.8 F 08/07/18 15:00 Pulse 103 H 08/07/18 15:00 Resp 20 08/07/18 15:00 BP 115/73 08/07/18 15:00 Pulse Ox 100 08/07/18 15:00 - Labs Result Diagrams: 08/07/18 07:09 08/07/18 07:09 Labs: Laboratory Results - last 24 hr 08/06/18 08/06/18 08/07/18 17:19 21:05 07:09 WBC 5.0 RBC 2.77 L Hgb 7.8 L Hct 22.8 L MCV 82.1 MCH 28.0 MCHC 34.2 RDW 14.4 Plt Count 317 MPV 8.5 Neut % (Auto) 57.2 Lymph % (Auto) 30.6 [place] % (Auto) 8.7 Eos % (Auto) 2.2 Baso % (Auto) 1.3 Neut # (Auto) 2.9 Lymph # (Auto) 1.5 [place] # (Auto) 0.4 Eos # (Auto) 0.1 Baso # (Auto) 0.1 Sodium Potassium Chloride Carbon Dioxide Anion Gap BUN Creatinine Est GFR ( Amer) Est GFR (Non-Af Amer) POC Glucose (mg/dL) 118 H Random Glucose Calcium Iron TIBC % Saturation Ferritin Total Bilirubin AST ALT Alkaline Phosphatase Total Protein Albumin Globulin Albumin/Globulin Ratio Ur Random Creatinine Ur Random Sodium Ur Random Potassium RPR Nonreactive 08/07/18 08/07/18 08/07/18 07:09 07:09 07:10 WBC RBC Hgb Hct MCV MCH MCHC RDW Plt Count MPV Neut % (Auto) Lymph % (Auto) [place] % (Auto) Eos % (Auto) Baso % (Auto) Neut # (Auto) Lymph # (Auto) [place] # (Auto) Eos # (Auto) Baso # (Auto) Sodium 141 Potassium 4.7 Chloride 107 Carbon Dioxide 23 Anion Gap 16 BUN 29 H Creatinine 1.2 Est GFR ( Amer) > 60 Est GFR (Non-Af Amer) > 60 POC Glucose (mg/dL) 51 L Random Glucose 70 L Calcium 9.5 Iron 30 L TIBC 244 L % Saturation 12 L Ferritin 123.0 Total Bilirubin 0.3 AST 23 ALT 28 Alkaline Phosphatase 114 Total Protein 7.7 Albumin 3.5 Globulin 4.1 H Albumin/Globulin Ratio 0.9 L Ur Random Creatinine Ur Random Sodium Ur Random Potassium RPR 08/07/18 08/07/18 08/07/18 07:12 07:34 08:36 WBC RBC Hgb Hct MCV MCH MCHC RDW Plt Count MPV Neut % (Auto) Lymph % (Auto) [place] % (Auto) Eos % (Auto) Baso % (Auto) Neut # (Auto) Lymph # (Auto) [place] # (Auto) Eos # (Auto) Baso # (Auto) Sodium Potassium Chloride Carbon Dioxide Anion Gap BUN Creatinine Est GFR ( Amer) Est GFR (Non-Af Amer) POC Glucose (mg/dL) 41 L 60 L 206 H Random Glucose Calcium Iron TIBC % Saturation Ferritin Total Bilirubin AST ALT Alkaline Phosphatase Total Protein Albumin Globulin Albumin/Globulin Ratio Ur Random Creatinine Ur Random Sodium Ur Random Potassium RPR 08/07/18 08/07/18 08/07/18 11:13 16:08 18:29 WBC RBC Hgb Hct MCV MCH MCHC RDW Plt Count MPV Neut % (Auto) Lymph % (Auto) [place] % (Auto) Eos % (Auto) Baso % (Auto) Neut # (Auto) Lymph # (Auto) [place] # (Auto) Eos # (Auto) Baso # (Auto) Sodium Potassium Chloride Carbon Dioxide Anion Gap BUN Creatinine Est GFR ( Amer) Est GFR (Non-Af Amer) POC Glucose (mg/dL) 236 H 211 H Random Glucose Calcium Iron TIBC % Saturation Ferritin Total Bilirubin AST ALT Alkaline Phosphatase Total Protein Albumin Globulin Albumin/Globulin Ratio Ur Random Creatinine 65.0 Ur Random Sodium Ur Random Potassium RPR 08/07/18 18:29 WBC RBC Hgb Hct MCV MCH MCHC RDW Plt Count MPV Neut % (Auto) Lymph % (Auto) [place] % (Auto) Eos % (Auto) Baso % (Auto) Neut # (Auto) Lymph # (Auto) [place] # (Auto) Eos # (Auto) Baso # (Auto) Sodium Potassium Chloride Carbon Dioxide Anion Gap BUN Creatinine Est GFR ( Amer) Est GFR (Non-Af Amer) POC Glucose (mg/dL) Random Glucose Calcium Iron TIBC % Saturation Ferritin Total Bilirubin AST ALT Alkaline Phosphatase Total Protein Albumin Globulin Albumin/Globulin Ratio Ur Random Creatinine Ur Random Sodium 85 Ur Random Potassium 27.4 RPR Assessment & Plan (1) Charcot foot due to diabetes mellitus Status: Acute (2) DKA (diabetic ketoacidoses) Status: Acute - Assessment and Plan (Free Text) Assessment: severe Charcot foot deformity in a diabetic male - MRI findings suggest possible OM would obtain copy of biopsy and cultures from prev hosp ( calcaneal Bx done recently according to pt ) and consider ceretec scan
--- NOTE | 2018-08-07 19:14 | CP.PCM.PN ---
<JhaveriIbethCarina Y - Last Filed: 08/07/18 19:11> Subjective - Date & Time of Evaluation Date of Evaluation: 08/07/18 Time of Evaluation: 14:00 - Subjective Subjective: PGY-1 Medicine progress note for Dr. Anderson Patient seen and examined at bedside this morning in no acute distress, has no current complaints. States that he slept well and had no overnight events and nurse concurs. Tolerating diet, voiding well with no difficulty starting or maintaining stream. Denies fevers, chills, headache, changes to vision/hearing, sore throat, cough, chest pain, nausea, vomiting, abdominal pain, neuropathy, difficulty with urination/bowel movements, diarrhea, constipation, blood in urine/stool. Objective - Vital Signs/Intake and Output Vital Signs (last 24 hours): Temp Pulse Resp BP Pulse Ox 98.8 F 103 H 20 115/73 100 08/07/18 15:00 08/07/18 15:00 08/07/18 15:00 08/07/18 15:00 08/07/18 15:00 Intake and Output: 08/07/18 08/08/18 18:59 06:59 Intake Total 300 Balance 300 - Medications Medications: Current Medications Amlodipine Besylate (Norvasc) 10 mg PO DAILY [facility] Last Admin: 08/07/18 10:14 Dose: 10 mg Dextrose (Dextrose 50% Inj) 0 ml IV STAT PRN; Protocol PRN Reason: Hypoglycemia Protocol Dextrose (Glutose 15) 0 gm PO ONCE PRN; Protocol PRN Reason: Hypoglycemia Protocol Glucagon (Glucagen Diagnostic Kit) 0 mg IM STAT PRN; Protocol PRN Reason: Hypoglycemia Protocol Heparin Sodium (Porcine) (Heparin) 5,000 units SC Q8 [facility] Last Admin: 08/07/18 15:21 Dose: Not Given Dextrose (Dextrose 5% In Water 1000 Ml) 1,000 mls @ 0 mls/hr IV .Q0M PRN; Protocol; Per Protocol PRN Reason: Hypoglycemia Protocol Ferric Sodium Gluconate Complex 125 mg/ Sodium Chloride 110 mls @ 110 mls/hr IVPB DAILY [facility] Stop: 08/14/18 10:59 Last Admin: 08/07/18 15:20 Dose: 110 mls/hr Insulin Aspart (Novolog) 8 unit SC ACTID [facility] Last Admin: 08/07/18 17:15 Dose: 8 unit Insulin Detemir (Levemir) 30 unit SC HS [facility] Last Admin: 08/06/18 21:38 Dose: 30 unit Lisinopril (Zestril) 10 mg PO DAILY [facility] Last Admin: 08/07/18 10:14 Dose: 10 mg Ondansetron HCl (Zofran Inj) 4 mg IVP Q4 PRN PRN Reason: Nausea/Vomiting Last Admin: 08/06/18 06:56 Dose: 4 mg Pantoprazole Sodium (Protonix Ec Tab) 40 mg PO DAILY [facility] Last Admin: 08/07/18 10:14 Dose: 40 mg - Labs Labs: 08/07/18 07:09 08/07/18 07:09 - Constitutional Appears: Non-toxic, No Acute Distress - Head Exam Head Exam: ATRAUMATIC, NORMOCEPHALIC - Eye Exam Eye Exam: absent: Conjunctival injection, Scleral icterus - ENT Exam ENT Exam: Mucous Membranes Moist - Neck Exam Neck Exam: absent: Lymphadenopathy - Respiratory Exam Respiratory Exam: Clear to Ausculation Bilateral. absent: Accessory Muscle Use , Rales, Rhonchi, Wheezes - Cardiovascular Exam Cardiovascular Exam: Tachycardia, +S1, +S2. absent: Gallop, Rubs, +S4, Murmur - GI/Abdominal Exam GI & Abdominal Exam: Soft, Normal Bowel Sounds. absent: Distended, Tenderness - Extremities Exam Extremities Exam: Pedal Edema Additional comments: L Charcot foot 2+ PT, DP, radial pulses - Neurological Exam Neurological Exam: Alert, Awake, Oriented x3. absent: Motor Sensory Deficit - Psychiatric Exam Psychiatric exam: Normal Affect, Normal Mood - Skin Skin Exam: Dry, Intact, Normal Color Assessment and Plan - Assessment and Plan (Free Text) Assessment: Patient is a 28 year old male with past medical history of T1DM and HTN admitted to [facility] on 08/04 for mild DKA, T1DM uncontrolled , and currently being treated for uncontrolled HTN, possible osteomyelitis. Plan: 1) Mild DKA, T1DM uncontrolled - on admission serum beta hydroxybutyrate 1.05, anion gap 21. DKA resolved - anion gap closed - Patient on Levemir 30 units SC HS and Aspart 8 units SC ACTID - Zofran 4 mg IVPO Q4hr prn for nausea - Hb A1c 10.3 - continue to monitor accuchecks ACHS - POC glucose on 08/04 ranged 78- 439 - POC glucose on 08/05 ranged 50- 331 - POC glucose on 08/06 ranged 258-118 - continue to monitor CMP - continue to trend POC glucose, numbers are decreasing - patient without another hypoglycemic episode (1 in total during hospital stay ) - patient counseled regarding appropriate outpatient care and management of his T1DM - follow up blood Cx for patients complaint of chills, preliminary 24 hour report negative x2 2) HTN, uncontrolled - BP range 150-160s/90s mmHg - history of proteinuria - UA 08/06- +2 protein, +3 glucose +2 blood with 23 RBC count - lisinopril 10 mg PO daily - Nephrology consulted, Dr. Toure - recs appreciated - started amlodipine 10 mg PO daily - Continue to monitor hyperkalemia as patient is on low dose KEYONNA inhibitor - workup per nephro - degree of hematuria excessive for DM, will obtain further serologic workup 3) Anemia, chronic - Hgb/Hct 7.8/22.8, - patient asymptomatic, recommend outpatient work up - continue to monitor CBC - Dr. Toure - most likely anemia of chronic disease, recommends to consider investigating underlying infection for anemia and repeat iron studies - Fe 30L, TIBC 244L, %sat 12L, ferritin 123.0 4) Left Charcot foot - Podiatry consulted: Dr. 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 Siddiqui - giselle appreciated - no intervention at this time 5) PPX - Heparin 5,000 units SC Q8hr for DVT ppx - Protonic 40 mg PO daily for GI ppx - diabetic diet Dispo: Patient has very uncontrolled sugars. Prior to being discharged, patient' s blood sugars must stabilize. He also needs to follow up with a PMD, the [facility] clinic if he cannot afford a private doctor to continue refilling his antihypertensive medication. If he does have osteomyelitis in his L LE as determined by MRI and ID workup, he will need to stay for IV abx. d/w Dr. Monica Jhaveri PGY-1 <Carmen Anderson - Last Filed: 08/08/18 15:23> Objective - Vital Signs/Intake and Output Vital Signs (last 24 hours): Temp Pulse Resp BP Pulse Ox 97.9 F 90 20 126/89 99 08/08/18 07:41 08/08/18 07:41 08/08/18 07:41 08/08/18 07:41 08/08/18 07:41 Intake and Output: 08/08/18 08/08/18 06:59 18:59 Intake Total 300 300 Balance 300 300 - Medications Medications: Current Medications Amlodipine Besylate (Norvasc) 5 mg PO DAILY [facility] Last Admin: 08/08/18 10:09 Dose: 5 mg Dextrose (Dextrose 50% Inj) 0 ml IV STAT PRN; Protocol PRN Reason: Hypoglycemia Protocol Dextrose (Glutose 15) 0 gm PO ONCE PRN; Protocol PRN Reason: Hypoglycemia Protocol Glucagon (Glucagen Diagnostic Kit) 0 mg IM STAT PRN; Protocol PRN Reason: Hypoglycemia Protocol Heparin Sodium (Porcine) (Heparin) 5,000 units SC Q8 [facility] Last Admin: 08/08/18 13:10 Dose: Not Given Dextrose (Dextrose 5% In Water 1000 Ml) 1,000 mls @ 0 mls/hr IV .Q0M PRN; Protocol; Per Protocol PRN Reason: Hypoglycemia Protocol Ferric Sodium Gluconate Complex 125 mg/ Sodium Chloride 110 mls @ 110 mls/hr IVPB DAILY [facility] Last Admin: 08/07/18 15:20 Dose: 110 mls/hr Insulin Aspart (Novolog) 8 unit SC ACTID [facility] Last Admin: 08/08/18 12:25 Dose: 8 unit Insulin Detemir (Levemir) 30 unit SC HS [facility] Last Admin: 08/07/18 22:01 Dose: 30 unit Lisinopril (Zestril) 10 mg PO DAILY [facility] Last Admin: 08/08/18 10:09 Dose: 10 mg Ondansetron HCl (Zofran Inj) 4 mg IVP Q4 PRN PRN Reason: Nausea/Vomiting Last Admin: 08/06/18 06:56 Dose: 4 mg Pantoprazole Sodium (Protonix Ec Tab) 40 mg PO DAILY [facility] Last Admin: 08/08/18 10:09 Dose: 40 mg - Labs Labs: 08/08/18 07:16 08/08/18 07:16 Attending/Attestation - Attestation I have personally seen and examined this patient.: Yes I have fully participated in the care of the patient.: Yes I have reviewed all pertinent clinical information, including history, physical exam and plan: Yes Notes (Text): seen and examined d/w patient about out patient renal follow up and continue insulin and adjust the dose of insulin according to the sugar level Patient has swollen right ankle,h/o oesteomylitis and charcot joint Chronic anemia also may be due to some infection . As per DR Toure his severe anemia may be due to some infection in addition to renal disease. MRI ordered to r/o ankle osteo. ,possible osteomylitis. Dr Siddiqui's consult appreciated. we will follow cerete scan,get biopsy report Assessment and the plan discussed with the resident and I agree with the documentation
[2018-08-07] MEDS: Insulin Detemir 100 units/ml Vial (Levemir) SC SCH (22:01)
[2018-08-08 07:39] LABS: BASO % 0.3 % (0.0-2.0); EOS # 0.1 K/uL (0.0-0.7); EOS % 2.1 % (0.0-4.0); HEMOGLOBIN 7.7 g/dL (12.0-18.0); LYMPH # 1.5 K/uL (1.0-4.3); LYMPH % 27.3 % (20.0-40.0); MEAN CELL VOLUME 82.6 fL (80.0-94.0); MEAN CORPUSCULAR HEMOGLOBIN 27.6 pg (27.0-31.0); MEAN CORPUSCULAR HGB CONC 33.4 g/dL (33.0-37.0); MEAN PLATELET VOLUME 8.3 fL (7.2-11.7); MONO # 0.5 K/uL (0.0-0.8); MONO % 8.2 % (0.0-10.0); NEUT # 3.5 K/uL (1.8-7.0); NEUT % 62.1 % (50.0-75.0); NRBC % 0.1 % (0.0-2.0); RBC 2.79 Mil/uL (4.40-5.90); RED CELL DISTRIBUTION WIDTH 14.3 % (11.5-14.5); WHITE BLOOD COUNT 5.7 K/uL (4.8-10.8)
[2018-08-08] MEDS: (Novolog) Insulin Aspart, Recombinant 100 u/ml 10 ml vial SC SCH ×3 (07:53→17:25)
[2018-08-08 07:57] LABS: ALB/GLOB RATIO 0.9 (1.0-2.1); ALBUMIN 3.4 g/dL (3.5-5.0); ALT/SGPT 29 U/L (21-72); AST/SGOT 22 U/L (17-59); BLOOD UREA NITROGEN 35 mg/dL (9-20); CALCIUM 9.6 mg/dl (8.6-10.4); GFR NON-AFRICAN AMERICAN > 60
[2018-08-08] MEDS: Pantoprazole 40 mg EC Tab PO SCH (10:09)
--- NOTE | 2018-08-08 14:24 | CP.PCM.PN ---
<Denise Vidal - Last Filed: 08/08/18 14:38> Subjective - Date & Time of Evaluation Date of Evaluation: 08/08/18 Time of Evaluation: 08:00 - Subjective Subjective: Medicine progress note for Dr. Anderson: Patient seen and examined at bedside this morning in no acute distress, has no current complaints. States he has pain in his left foot only when it is being examined. Tolerating diet, voiding well with no difficulty and having normal bowel movement. Denies fevers, chills, headache, changes to vision/hearing, sore throat, cough, chest pain, nausea, vomiting, abdominal pain, neuropathy, difficulty with urination/bowel movements, diarrhea, constipation, blood in urine/stool. Objective - Vital Signs/Intake and Output Vital Signs (last 24 hours): Temp Pulse Resp BP Pulse Ox 97.9 F 90 20 126/89 99 08/08/18 07:41 08/08/18 07:41 08/08/18 07:41 08/08/18 07:41 08/08/18 07:41 Intake and Output: 08/08/18 08/08/18 06:59 18:59 Intake Total 300 300 Balance 300 300 - Medications Medications: Current Medications Amlodipine Besylate (Norvasc) 5 mg PO DAILY [facility] Last Admin: 08/08/18 10:09 Dose: 5 mg Dextrose (Dextrose 50% Inj) 0 ml IV STAT PRN; Protocol PRN Reason: Hypoglycemia Protocol Dextrose (Glutose 15) 0 gm PO ONCE PRN; Protocol PRN Reason: Hypoglycemia Protocol Glucagon (Glucagen Diagnostic Kit) 0 mg IM STAT PRN; Protocol PRN Reason: Hypoglycemia Protocol Heparin Sodium (Porcine) (Heparin) 5,000 units SC Q8 [facility] Last Admin: 08/08/18 13:10 Dose: Not Given Dextrose (Dextrose 5% In Water 1000 Ml) 1,000 mls @ 0 mls/hr IV .Q0M PRN; Protocol; Per Protocol PRN Reason: Hypoglycemia Protocol Ferric Sodium Gluconate Complex 125 mg/ Sodium Chloride 110 mls @ 110 mls/hr IVPB DAILY [facility] Last Admin: 08/07/18 15:20 Dose: 110 mls/hr Insulin Aspart (Novolog) 8 unit SC ACTID [facility] Last Admin: 08/08/18 12:25 Dose: 8 unit Insulin Detemir (Levemir) 30 unit SC HS [facility] Last Admin: 08/07/18 22:01 Dose: 30 unit Lisinopril (Zestril) 10 mg PO DAILY [facility] Last Admin: 08/08/18 10:09 Dose: 10 mg Ondansetron HCl (Zofran Inj) 4 mg IVP Q4 PRN PRN Reason: Nausea/Vomiting Last Admin: 08/06/18 06:56 Dose: 4 mg Pantoprazole Sodium (Protonix Ec Tab) 40 mg PO DAILY [facility] Last Admin: 08/08/18 10:09 Dose: 40 mg - Labs Labs: 08/08/18 07:16 08/08/18 07:16 - Constitutional Appears: Non-toxic, No Acute Distress - Head Exam Head Exam: ATRAUMATIC, NORMAL INSPECTION - Eye Exam Eye Exam: EOMI, PERRL Pupil Exam: NORMAL ACCOMODATION - ENT Exam ENT Exam: Mucous Membranes Moist - Respiratory Exam Respiratory Exam: Clear to Ausculation Bilateral, NORMAL BREATHING PATTERN. absent: Respiratory Distress - Cardiovascular Exam Cardiovascular Exam: REGULAR RHYTHM, +S1, +S2 - GI/Abdominal Exam GI & Abdominal Exam: Soft, Normal Bowel Sounds. absent: Distended, Firm, Guarding, Tenderness - Extremities Exam Additional comments: L Charcot foot 2+ PT, DP, radial pulses - Back Exam Back Exam: NORMAL INSPECTION - Neurological Exam Neurological Exam: Alert, Awake, CN II-XII Intact, Oriented x3 - Psychiatric Exam Psychiatric exam: Normal Affect, Normal Mood - Skin Skin Exam: Normal Color Assessment and Plan - Assessment and Plan (Free Text) Assessment: Assessment: Patient is a 28 year old male with past medical history of T1DM and HTN admitted to [facility] on 08/04 for mild DKA, T1DM uncontrolled , and currently being treated for uncontrolled HTN, possible osteomyelitis. Plan: Mild DKA, T1DM uncontrolled - on admission serum beta hydroxybutyrate 1.05, anion gap 21. DKA resolved - anion gap closed - Patient on Levemir 30 units SC HS and Aspart 8 units SC ACTID - Zofran 4 mg IVPO Q4hr prn for nausea - Hb A1c 10.3 - continue to monitor accuchecks ACHS - patient counseled regarding appropriate outpatient care and management of his T1DM HTN - history of proteinuria - UA 08/06- +2 protein, +3 glucose +2 blood with 23 RBC count - lisinopril 10 mg PO daily - Nephrology consulted, Dr. Toure - recs appreciated - Amlodipine 5 mg PO daily Anemia, chronic - Hgb 7.3 - Dr. Toure - most likely anemia of chronic disease, recommends to consider investigating underlying infection for anemia and repeat iron studies - Fe 30L, TIBC 244L, %sat 12L, ferritin 123.0 - f/u protein electrophoresis, aldosterone, metanephrine, renin, felice, anca Left Charcot foot - Podiatry consulted: Dr. 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 Siddiqui - giselle appreciated - f.u CRP - f/u Ceretec scan (will likely be done on Friday) Hematuria f/u Urine cx and cytology PPX - Heparin 5,000 units SC Q8hr for DVT ppx - Protonic 40 mg PO daily for GI ppx - diabetic diet Dispo: Pending ceretec scan. Patient has very uncontrolled sugars. Prior to being discharged, patient's blood sugars must stabilize. He also needs to follow up with a PMD, the [facility] if he cannot afford a private doctor to continue refilling his antihypertensive medication. <Carmen Anderson - Last Filed: 08/08/18 15:40> Objective - Vital Signs/Intake and Output Vital Signs (last 24 hours): Temp Pulse Resp BP Pulse Ox 97.9 F 90 20 126/89 99 08/08/18 07:41 08/08/18 07:41 08/08/18 07:41 08/08/18 07:41 08/08/18 07:41 Intake and Output: 08/08/18 08/08/18 06:59 18:59 Intake Total 300 300 Balance 300 300 - Medications Medications: Current Medications Amlodipine Besylate (Norvasc) 5 mg PO DAILY [facility] Last Admin: 08/08/18 10:09 Dose: 5 mg Dextrose (Dextrose 50% Inj) 0 ml IV STAT PRN; Protocol PRN Reason: Hypoglycemia Protocol Dextrose (Glutose 15) 0 gm PO ONCE PRN; Protocol PRN Reason: Hypoglycemia Protocol Glucagon (Glucagen Diagnostic Kit) 0 mg IM STAT PRN; Protocol PRN Reason: Hypoglycemia Protocol Heparin Sodium (Porcine) (Heparin) 5,000 units SC Q8 [facility] Last Admin: 08/08/18 13:10 Dose: Not Given Dextrose (Dextrose 5% In Water 1000 Ml) 1,000 mls @ 0 mls/hr IV .Q0M PRN; Protocol; Per Protocol PRN Reason: Hypoglycemia Protocol Ferric Sodium Gluconate Complex 125 mg/ Sodium Chloride 110 mls @ 110 mls/hr IVPB DAILY [facility] Last Admin: 08/07/18 15:20 Dose: 110 mls/hr Insulin Aspart (Novolog) 8 unit SC ACTID [facility] Last Admin: 08/08/18 12:25 Dose: 8 unit Insulin Detemir (Levemir) 30 unit SC HS [facility] Last Admin: 08/07/18 22:01 Dose: 30 unit Lisinopril (Zestril) 10 mg PO DAILY [facility] Last Admin: 08/08/18 10:09 Dose: 10 mg Ondansetron HCl (Zofran Inj) 4 mg IVP Q4 PRN PRN Reason: Nausea/Vomiting Last Admin: 08/06/18 06:56 Dose: 4 mg Pantoprazole Sodium (Protonix Ec Tab) 40 mg PO DAILY [facility] Last Admin: 08/08/18 10:09 Dose: 40 mg - Labs Labs: 08/08/18 07:16 08/08/18 07:16 Attending/Attestation - Attestation I have personally seen and examined this patient.: Yes I have fully participated in the care of the patient.: Yes I have reviewed all pertinent clinical information, including history, physical exam and plan: Yes Notes (Text): Seen and examined by me . Patient has no complain. His ankle look the same. Gets pain on and off.Walk without support,no fever.Blood sugar ia failrly controlled,BP is improving. Patient proteinuria and need nephrology follow up. Has hematuria also . follow cultures MRI ankle possible osteomylitis Dr Siddiqui's consult appreciated. we will follow ceretec scan,get biopsy report Assessment and the plan discussed with the resident and I agree with the documentation
[2018-08-08] MEDS: Insulin Detemir 100 units/ml Vial (Levemir) SC SCH (21:54)
--- NOTE | 2018-08-08 23:44 | CP.PCM.PN ---
Subjective - Date & Time of Evaluation Date of Evaluation: 08/08/18 Time of Evaluation: 15:00 - Subjective Subjective: Reports feeling well; is concerned about his multiple medical issues; Objective - Vital Signs/Intake and Output Vital Signs (last 24 hours): Temp Pulse Resp BP Pulse Ox 97.4 F L 97 H 20 109/72 98 08/08/18 15:30 08/08/18 15:30 08/08/18 15:30 08/08/18 15:30 08/08/18 15:30 Intake and Output: 08/08/18 08/09/18 18:59 06:59 Intake Total 300 Balance 300 - Medications Medications: Current Medications Amlodipine Besylate (Norvasc) 5 mg PO DAILY [facility] Last Admin: 08/08/18 10:09 Dose: 5 mg Dextrose (Dextrose 50% Inj) 0 ml IV STAT PRN; Protocol PRN Reason: Hypoglycemia Protocol Dextrose (Glutose 15) 0 gm PO ONCE PRN; Protocol PRN Reason: Hypoglycemia Protocol Glucagon (Glucagen Diagnostic Kit) 0 mg IM STAT PRN; Protocol PRN Reason: Hypoglycemia Protocol Heparin Sodium (Porcine) (Heparin) 5,000 units SC Q8 [facility] Last Admin: 08/08/18 21:55 Dose: Not Given Dextrose (Dextrose 5% In Water 1000 Ml) 1,000 mls @ 0 mls/hr IV .Q0M PRN; Protocol; Per Protocol PRN Reason: Hypoglycemia Protocol Ferric Sodium Gluconate Complex 125 mg/ Sodium Chloride 110 mls @ 110 mls/hr IVPB DAILY [facility] Last Admin: 08/07/18 15:20 Dose: 110 mls/hr Insulin Aspart (Novolog) 8 unit SC ACTID [facility] Last Admin: 08/08/18 17:25 Dose: 8 unit Insulin Detemir (Levemir) 30 unit SC HS [facility] Last Admin: 08/08/18 21:54 Dose: 30 unit Lisinopril (Zestril) 10 mg PO DAILY [facility] Last Admin: 08/08/18 10:09 Dose: 10 mg Ondansetron HCl (Zofran Inj) 4 mg IVP Q4 PRN PRN Reason: Nausea/Vomiting Last Admin: 08/06/18 06:56 Dose: 4 mg Pantoprazole Sodium (Protonix Ec Tab) 40 mg PO DAILY [facility] Last Admin: 08/08/18 10:09 Dose: 40 mg - Labs Labs: 08/08/18 07:16 08/08/18 07:16 - Constitutional Appears: Non-toxic, No Acute Distress - Eye Exam Eye Exam: Normal appearance - Respiratory Exam Respiratory Exam: Clear to Ausculation Bilateral. absent: Respiratory Distress - Cardiovascular Exam Cardiovascular Exam: RRR, +S1, +S2 - GI/Abdominal Exam GI & Abdominal Exam: Soft. absent: Distended, Tenderness - Extremities Exam Additional comments: L lower leg edema; - Neurological Exam Neurological Exam: Alert, Awake - Psychiatric Exam Psychiatric exam: Normal Affect. absent: Agitated - Skin Skin Exam: Warm. absent: Cyanosis Assessment and Plan (1) CKD (chronic kidney disease) Assessment & Plan: Proteinuric kidney disease likely due to DM; stable renal function but proteinuria out of proportion to degree of CKD and is poor prognostic indicator; -obtaining 24 hr urine for protein measurement; -will titrate dose of lisinopril upward as tolerated; -avoid nephrotoxic agents; -low potassium diet (hyperkalemia resolved); Status: Chronic (2) Proteinuria Status: Chronic (3) Hypertension Assessment & Plan: BP better controlled; decreasing dose of amlodipine to 5 mg, increasing lisinopril to 20 mg daily; Status: Acute (4) Anemia Assessment & Plan: Due to chronic disease; started on IV iron, will continue if ok with ID; will re -dose EPO; Status: Acute
[2018-08-09] MEDS ORDERED: Dextrose 50% SYRINGE Inj (50 ml) ONE (07:06)
[2018-08-09] MEDS: (Novolog) Insulin Aspart, Recombinant 100 u/ml 10 ml vial SC SCH ×3 (08:23→17:49)
[2018-08-09] MEDS ORDERED: Epoetin Alfa 20000 UNIT/ML Inj SC ONE (08:25)
--- NOTE | 2018-08-09 08:29 | CARD ---
APPROVED REPORT Date of service: 08/05/2018 EKG Measurement Heart [id number] <Conclusion> Normal sinus rhythm Normal ECG
[2018-08-09 09:19] LABS: BASO # 0.1 K/uL (0.0-0.2); BASO % 1.3 % (0.0-2.0); EOS # 0.1 K/uL (0.0-0.7); EOS % 2.3 % (0.0-4.0); HEMOGLOBIN 7.5 g/dL (12.0-18.0); LYMPH # 1.2 K/uL (1.0-4.3); LYMPH % 21.3 % (20.0-40.0); MEAN CELL VOLUME 83.1 fL (80.0-94.0); MEAN CORPUSCULAR HEMOGLOBIN 27.8 pg (27.0-31.0); MEAN CORPUSCULAR HGB CONC 33.5 g/dL (33.0-37.0); MEAN PLATELET VOLUME 8.3 fL (7.2-11.7); MONO # 0.5 K/uL (0.0-0.8); MONO % 8.3 % (0.0-10.0); NEUT # 3.9 K/uL (1.8-7.0); NEUT % 66.8 % (50.0-75.0); RBC 2.7 Mil/uL (4.40-5.90); RED CELL DISTRIBUTION WIDTH 14.7 % (11.5-14.5); WHITE BLOOD COUNT 5.8 K/uL (4.8-10.8)
[2018-08-09] MEDS: Pantoprazole 40 mg EC Tab PO SCH (09:22)
[2018-08-09 09:30] LABS: ALB/GLOB RATIO 0.9 (1.0-2.1); ALBUMIN 3.5 g/dL (3.5-5.0); ALT/SGPT 24 U/L (21-72); AST/SGOT 19 U/L (17-59); BLOOD UREA NITROGEN 34 mg/dL (9-20); CALCIUM 9.3 mg/dl (8.6-10.4); GFR NON-AFRICAN AMERICAN > 60
[2018-08-09] MEDS: Ferric Sodium Gluconat Complex 125 MG in Sodium Chloride 0.9% 100 ML IVPB SCH (11:07)
--- NOTE | 2018-08-09 13:02 | CP.PCM.PN ---
<Pritesh Cummings - Last Filed: 08/09/18 13:03> Subjective - Date & Time of Evaluation Date of Evaluation: 08/09/18 Time of Evaluation: 08:05 - Subjective Subjective: Medicine progress note for Dr. Anderson: Patient seen and examined at bedside, in no acute distress, has no current complaints. Reports pain in his left foot only when it is being examined. Tolerating diet, reports normal BM and urination. States that he had a biopsy of his L foot at [facility] in Oct 2017 2/2 infection and was placed on antibiotics for 6 weeks. 12-point review of systems is otherwise negative without any additional acute complaints. Objective - Vital Signs/Intake and Output Vital Signs (last 24 hours): Temp Pulse Resp BP Pulse Ox 99 F 105 H 20 145/93 H 100 08/09/18 00:00 08/09/18 00:00 08/09/18 00:00 08/09/18 00:00 08/09/18 00:00 Intake and Output: 08/09/18 08/09/18 06:59 18:59 Intake Total 540 Balance 540 - Medications Medications: Current Medications Amlodipine Besylate (Norvasc) 5 mg PO DAILY [facility] Last Admin: 08/09/18 09:22 Dose: 5 mg Dextrose (Dextrose 50% Inj) 0 ml IV STAT PRN; Protocol PRN Reason: Hypoglycemia Protocol Dextrose (Glutose 15) 0 gm PO ONCE PRN; Protocol PRN Reason: Hypoglycemia Protocol Glucagon (Glucagen Diagnostic Kit) 0 mg IM STAT PRN; Protocol PRN Reason: Hypoglycemia Protocol Heparin Sodium (Porcine) (Heparin) 5,000 units SC Q8 [facility] Last Admin: 08/09/18 06:55 Dose: Not Given Dextrose (Dextrose 5% In Water 1000 Ml) 1,000 mls @ 0 mls/hr IV .Q0M PRN; Protocol; Per Protocol PRN Reason: Hypoglycemia Protocol Ferric Sodium Gluconate Complex 125 mg/ Sodium Chloride 110 mls @ 110 mls/hr IVPB DAILY [facility] Stop: 08/15/18 10:59 Last Admin: 08/09/18 11:07 Dose: 110 mls/hr Insulin Aspart (Novolog) 8 unit SC ACTID [facility] Last Admin: 08/09/18 12:05 Dose: Not Given Insulin Detemir (Levemir) 20 unit SC HS [facility] Lisinopril (Zestril) 20 mg PO DAILY [facility] Last Admin: 08/09/18 09:23 Dose: 20 mg Ondansetron HCl (Zofran Inj) 4 mg IVP Q4 PRN PRN Reason: Nausea/Vomiting Last Admin: 08/06/18 06:56 Dose: 4 mg Pantoprazole Sodium (Protonix Ec Tab) 40 mg PO DAILY [facility] Last Admin: 08/09/18 09:22 Dose: 40 mg - Labs Labs: 08/09/18 09:02 08/09/18 09:02 - Additional Findings Additional findings: - Constitutional Appears: Non-toxic, No Acute Distress - Head Exam Head Exam: ATRAUMATIC, NORMAL INSPECTION - Eye Exam Eye Exam: EOMI, PERRL Pupil Exam: NORMAL ACCOMODATION - ENT Exam ENT Exam: Mucous Membranes Moist - Respiratory Exam Respiratory Exam: Clear to Ausculation Bilateral, NORMAL BREATHING PATTERN. absent: Respiratory Distress - Cardiovascular Exam Cardiovascular Exam: REGULAR RHYTHM, +S1, +S2 - GI/Abdominal Exam GI & Abdominal Exam: Soft, Normal Bowel Sounds. absent: Distended, Firm, Guarding, Tenderness - Extremities Exam Additional comments: L Charcot foot 2+ PT, DP, radial pulses - Back Exam Back Exam: NORMAL INSPECTION - Neurological Exam Neurological Exam: Alert, Awake, CN II-XII Intact, Oriented x3 - Psychiatric Exam Psychiatric exam: Normal Affect, Normal Mood - Skin Skin Exam: Normal Color, Dry, Intact Assessment and Plan - Assessment and Plan (Free Text) Assessment: Patient is a 28 year old male with past medical history of T1DM and HTN admitted to [facility] on 08/04 for mild DKA, T1DM uncontrolled , and currently being treated for uncontrolled HTN, possible osteomyelitis. Plan: Mild DKA, T1DM uncontrolled 08/09: patient was hypoglycemic overnight. He states that he eats a lot more at home. Levemir decreased to 20u Q12 while hospitalized. - on admission serum beta hydroxybutyrate 1.05, anion gap 21. DKA resolved - anion gap closed - Patient on Levemir 30 units SC HS and Aspart 8 units SC ACTID - Zofran 4 mg IVPO Q4hr prn for nausea - Hb A1c 10.3 - continue to monitor accuchecks ACHS - patient counseled regarding appropriate outpatient care and management of his T1DM HTN - history of proteinuria - UA 08/06- +2 protein, +3 glucose +2 blood with 23 RBC count - lisinopril 10 mg PO daily - Nephrology consulted, Dr. Toure - recs appreciated - Amlodipine 5 mg PO daily Anemia, chronic - Hgb 7.5 today - Dr. Toure - most likely anemia of chronic disease, recommends to consider investigating underlying infection for anemia and repeat iron studies - Fe 30L, TIBC 244L, %sat 12L, ferritin 123.0 - f/u protein electrophoresis, aldosterone, metanephrine, renin, felice, anca Left Charcot foot - Podiatry consulted: Dr. 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 Siddiqui - giselle appreciated - f.u CRP - f/u Ceretec scan (will likely be done on Friday) Hematuria 08/09: urine cx uncollected. Repeated today. f/u Urine cx and cytology PPX - Heparin 5,000 units SC Q8hr for DVT ppx - Protonic 40 mg PO daily for GI ppx - diabetic diet Dispo: Pending ceretec scan. Patient has very uncontrolled sugars. Prior to being discharged, patient's blood sugars must stabilize. He also needs to follow up with a PMD, the [facility] clinic if he cannot afford a private doctor to continue refilling his antihypertensive medication. <Carmen Anderson - Last Filed: 08/09/18 14:53> Objective - Vital Signs/Intake and Output Vital Signs (last 24 hours): Temp Pulse Resp BP Pulse Ox 99 F 105 H 20 145/93 H 100 08/09/18 00:00 08/09/18 00:00 08/09/18 00:00 08/09/18 00:00 08/09/18 00:00 Intake and Output: 08/09/18 08/09/18 06:59 18:59 Intake Total 540 Balance 540 - Medications Medications: Current Medications Amlodipine Besylate (Norvasc) 5 mg PO DAILY [facility] Last Admin: 08/09/18 09:22 Dose: 5 mg Dextrose (Dextrose 50% Inj) 0 ml IV STAT PRN; Protocol PRN Reason: Hypoglycemia Protocol Dextrose (Glutose 15) 0 gm PO ONCE PRN; Protocol PRN Reason: Hypoglycemia Protocol Glucagon (Glucagen Diagnostic Kit) 0 mg IM STAT PRN; Protocol PRN Reason: Hypoglycemia Protocol Heparin Sodium (Porcine) (Heparin) 5,000 units SC Q8 [facility] Last Admin: 08/09/18 13:56 Dose: Not Given Dextrose (Dextrose 5% In Water 1000 Ml) 1,000 mls @ 0 mls/hr IV .Q0M PRN; Protocol; Per Protocol PRN Reason: Hypoglycemia Protocol Ferric Sodium Gluconate Complex 125 mg/ Sodium Chloride 110 mls @ 110 mls/hr IVPB DAILY [facility] Stop: 08/15/18 10:59 Last Admin: 08/09/18 11:07 Dose: 110 mls/hr Insulin Aspart (Novolog) 8 unit SC ACTID [facility] Last Admin: 08/09/18 12:05 Dose: Not Given Insulin Detemir (Levemir) 20 unit SC HS [facility] Lisinopril (Zestril) 20 mg PO DAILY [facility] Last Admin: 08/09/18 09:23 Dose: 20 mg Ondansetron HCl (Zofran Inj) 4 mg IVP Q4 PRN PRN Reason: Nausea/Vomiting Last Admin: 08/06/18 06:56 Dose: 4 mg Pantoprazole Sodium (Protonix Ec Tab) 40 mg PO DAILY [facility] Last Admin: 08/09/18 09:22 Dose: 40 mg - Labs Labs: 08/09/18 09:02 08/09/18 09:02 Attending/Attestation - Attestation I have personally seen and examined this patient.: Yes I have fully participated in the care of the patient.: Yes I have reviewed all pertinent clinical information, including history, physical exam and plan: Yes Notes (Text): Seen and examined by me. His sugar was low this morning . It was in 20ies. patient state that he was taking Levemir 30units for a long time. At home he eats more. We will reduce his levemir to 20units,continue insulin Aspart 8units with meals Dr Toure's follow up appreciated. Patient is getting epogen and iron infusion follow Cerete scan. Bone biopsy done last October at [facility] and treated for 6 weeks at rehab
--- NOTE | 2018-08-09 15:53 | CP.PCM.PN ---
Subjective - Date & Time of Evaluation Date of Evaluation: 08/09/18 Time of Evaluation: 09:00 - Subjective Subjective: afebrile Bx over 7 months ago await bone scan may need reppeat bx/culture vvs empiric rx would obtain culture reports Objective - Vital Signs/Intake and Output Vital Signs (last 24 hours): Temp Pulse Resp BP Pulse Ox 99 F 105 H 20 145/93 H 100 08/09/18 00:00 08/09/18 00:00 08/09/18 00:00 08/09/18 00:00 08/09/18 00:00 Intake and Output: 08/09/18 08/09/18 06:59 18:59 Intake Total 540 710 Balance 540 710 - Medications Medications: Current Medications Amlodipine Besylate (Norvasc) 5 mg PO DAILY [facility] Last Admin: 08/09/18 09:22 Dose: 5 mg Dextrose (Dextrose 50% Inj) 0 ml IV STAT PRN; Protocol PRN Reason: Hypoglycemia Protocol Dextrose (Glutose 15) 0 gm PO ONCE PRN; Protocol PRN Reason: Hypoglycemia Protocol Glucagon (Glucagen Diagnostic Kit) 0 mg IM STAT PRN; Protocol PRN Reason: Hypoglycemia Protocol Heparin Sodium (Porcine) (Heparin) 5,000 units SC Q8 [facility] Last Admin: 08/09/18 13:56 Dose: Not Given Dextrose (Dextrose 5% In Water 1000 Ml) 1,000 mls @ 0 mls/hr IV .Q0M PRN; Protocol; Per Protocol PRN Reason: Hypoglycemia Protocol Ferric Sodium Gluconate Complex 125 mg/ Sodium Chloride 110 mls @ 110 mls/hr IVPB DAILY [facility] Stop: 08/15/18 10:59 Last Admin: 08/09/18 11:07 Dose: 110 mls/hr Insulin Aspart (Novolog) 8 unit SC ACTID [facility] Last Admin: 08/09/18 12:05 Dose: Not Given Insulin Detemir (Levemir) 20 unit SC HS [facility] Lisinopril (Zestril) 20 mg PO DAILY [facility] Last Admin: 08/09/18 09:23 Dose: 20 mg Ondansetron HCl (Zofran Inj) 4 mg IVP Q4 PRN PRN Reason: Nausea/Vomiting Last Admin: 08/06/18 06:56 Dose: 4 mg Pantoprazole Sodium (Protonix Ec Tab) 40 mg PO DAILY [facility] Last Admin: 08/09/18 09:22 Dose: 40 mg - Labs Labs: 08/09/18 09:02 08/09/18 09:02 - Constitutional Appears: Non-toxic, Chronically Ill - Head Exam Head Exam: NORMOCEPHALIC - Eye Exam Eye Exam: PERRL - ENT Exam ENT Exam: Mucous Membranes Dry - Neck Exam Neck Exam: absent: Lymphadenopathy - Respiratory Exam Respiratory Exam: Decreased Breath Sounds - Cardiovascular Exam Cardiovascular Exam: REGULAR RHYTHM, +S1, +S2 - GI/Abdominal Exam GI & Abdominal Exam: Distended, Soft. absent: Tenderness - Rectal Exam Rectal Exam: Deferred - Exam Exam: NORMAL INSPECTION - Extremities Exam Extremities Exam: absent: Pedal Edema - Back Exam Back Exam: absent: CVA tenderness (L), CVA tenderness (R) - Neurological Exam Neurological Exam: Alert, Awake, Oriented x3 - Psychiatric Exam Psychiatric exam: Normal Mood - Skin Skin Exam: Dry Assessment and Plan (1) Charcot foot due to diabetes mellitus Status: Acute (2) DKA (diabetic ketoacidoses) Status: Acute - Assessment and Plan (Free Text) Assessment: Bx over 7 months ago await bone scan may need reppeat bx/culture vvs empiric rx would obtain culture reports
[2018-08-09] MEDS ORDERED: Insulin Detemir 100 units/ml Vial (Levemir) SC SCH (22:00)
[2018-08-10 07:27] LABS: BASO # 0.1 K/uL (0.0-0.2); EOS # 0.1 K/uL (0.0-0.7); EOS % 1.1 % (0.0-4.0); HEMOGLOBIN 7.9 g/dL (12.0-18.0); LYMPH # 1.1 K/uL (1.0-4.3); LYMPH % 18.3 % (20.0-40.0); MEAN CELL VOLUME 83.3 fL (80.0-94.0); MEAN CORPUSCULAR HEMOGLOBIN 27.7 pg (27.0-31.0); MEAN CORPUSCULAR HGB CONC 33.2 g/dL (33.0-37.0); MONO # 0.4 K/uL (0.0-0.8); MONO % 6.3 % (0.0-10.0); NEUT # 4.3 K/uL (1.8-7.0); NEUT % 73.3 % (50.0-75.0); RBC 2.86 Mil/uL (4.40-5.90); RED CELL DISTRIBUTION WIDTH 14.5 % (11.5-14.5); WHITE BLOOD COUNT 5.9 K/uL (4.8-10.8)
[2018-08-10 07:47] VITALS: BP 135/92; PULSE 104; TEMP 97.9; O2SAT 99
[2018-08-10 07:49] LABS: ALB/GLOB RATIO 0.8 (1.0-2.1); ALBUMIN 3.4 g/dL (3.5-5.0); ALT/SGPT 27 U/L (21-72); AST/SGOT 28 U/L (17-59); BLOOD UREA NITROGEN 34 mg/dL (9-20); CALCIUM 9.4 mg/dl (8.6-10.4); GFR NON-AFRICAN AMERICAN 56
[2018-08-10] MEDS: (Novolog) Insulin Aspart, Recombinant 100 u/ml 10 ml vial SC SCH ×2 (08:46→12:45)
[2018-08-10] MEDS: Pantoprazole 40 mg EC Tab PO SCH (10:20)
[2018-08-10] MEDS: Ferric Sodium Gluconat Complex 125 MG in Sodium Chloride 0.9% 100 ML IVPB SCH (10:34)
--- NOTE | 2018-08-10 13:37 | CP.PCM.PN ---
<Danial Greenfield - Last Filed: 08/10/18 13:26> Subjective - Date & Time of Evaluation Date of Evaluation: 08/10/18 Time of Evaluation: 13:27 - Subjective Subjective: PGY-[address] Bueno Pt seen and examined at bedside. Patient tolerating PO food, sleeping well. Patient is expressing anxiety about the fact that he has been hospitalized for so long. Pt awaiting [facility] WBC scan to determine OM vs chronic charcot changes. Of note, he has had surgery for excision of OM lesion in the past. He has expressed frustration with missing days of work and his lack of family support. Patient does want to have his diabetes properly managed, and is looking into switching doctors as outpatient for DM management. Pt denies fevers, chills, nausea, vomiting, abdominal, diarrhea, chest pain, palpitations , polyuria, dysuria, hematuria. Objective - Vital Signs/Intake and Output Vital Signs (last 24 hours): Temp Pulse Resp BP Pulse Ox 97.9 F 104 H 20 135/92 H 99 08/10/18 07:45 08/10/18 07:45 08/10/18 07:45 08/10/18 07:45 08/10/18 07:45 Intake and Output: 08/10/18 08/10/18 06:59 18:59 Intake Total 240 Balance 240 - Medications Medications: Current Medications Dextrose (Dextrose 50% Inj) 0 ml IV STAT PRN; Protocol PRN Reason: Hypoglycemia Protocol Dextrose (Glutose 15) 0 gm PO ONCE PRN; Protocol PRN Reason: Hypoglycemia Protocol Glucagon (Glucagen Diagnostic Kit) 0 mg IM STAT PRN; Protocol PRN Reason: Hypoglycemia Protocol Heparin Sodium (Porcine) (Heparin) 5,000 units SC Q8 COUNTS INCLUDE 234 BEDS AT THE [facility] Last Admin: 08/10/18 05:15 Dose: Not Given Dextrose (Dextrose 5% In Water 1000 Ml) 1,000 mls @ 0 mls/hr IV .Q0M PRN; Protocol; Per Protocol PRN Reason: Hypoglycemia Protocol Ferric Sodium Gluconate Complex 125 mg/ Sodium Chloride 110 mls @ 110 mls/hr IVPB DAILY COUNTS INCLUDE 234 BEDS AT THE [facility] Stop: 08/15/18 10:59 Last Admin: 08/10/18 10:34 Dose: 110 mls/hr Insulin Aspart (Novolog) 8 unit SC ACTID COUNTS INCLUDE 234 BEDS AT THE [facility] Last Admin: 08/10/18 12:45 Dose: 8 unit Insulin Detemir (Levemir) 20 unit SC HS COUNTS INCLUDE 234 BEDS AT THE [facility] Last Admin: 08/09/18 21:27 Dose: 20 unit Lisinopril (Zestril) 40 mg PO DAILY COUNTS INCLUDE 234 BEDS AT THE [facility] Ondansetron HCl (Zofran Inj) 4 mg IVP Q4 PRN PRN Reason: Nausea/Vomiting Last Admin: 08/06/18 06:56 Dose: 4 mg Pantoprazole Sodium (Protonix Ec Tab) 40 mg PO DAILY COUNTS INCLUDE 234 BEDS AT THE [facility] Last Admin: 08/10/18 10:20 Dose: 40 mg - Labs Labs: 08/10/18 06:48 08/10/18 06:48 - Constitutional Appears: Non-toxic, No Acute Distress - Head Exam Head Exam: ATRAUMATIC, NORMOCEPHALIC - Eye Exam Eye Exam: EOMI Pupil Exam: NORMAL ACCOMODATION - ENT Exam ENT Exam: Mucous Membranes Moist, Normal Exam - Respiratory Exam Respiratory Exam: Clear to Ausculation Bilateral, NORMAL BREATHING PATTERN - Cardiovascular Exam Cardiovascular Exam: REGULAR RHYTHM, RRR, +S1, +S2. absent: Murmur - GI/Abdominal Exam GI & Abdominal Exam: Firm, Soft, Normal Bowel Sounds. absent: Distended, Tenderness - Extremities Exam Extremities Exam: Pedal Edema. absent: Tenderness Additional comments: +L-sided pedal edema with chronic skin changes. - Neurological Exam Neurological Exam: Alert, Awake, CN II-XII Intact, Normal Gait, Oriented x3 - Psychiatric Exam Psychiatric exam: Normal Mood Additional comments: +avoids eye contact - Skin Skin Exam: Dry, Intact, Normal Color, Warm Assessment and Plan - Assessment and Plan (Free Text) Assessment: Patient is a 28 year old male with past medical history of T1DM and HTN admitted to [facility] on 08/04 for mild DKA, T1DM uncontrolled , and currently being treated for uncontrolled HTN, possible osteomyelitis. Plan: Mild DKA, T1DM uncontrolled Levemir decreased to 20u Q12 while hospitalized --> POC glucose has been stable in 100s-low 200s x48 hours) - on admission serum beta hydroxybutyrate 1.05, anion gap 21. DKA resolved - anion gap closed - Patient on Levemir 20 units SC HS and Aspart 8 units SC ACTID - Zofran 4 mg IVPO Q4hr prn for nausea - Hb A1c 10.3 - continue to monitor accuchecks ACHS - patient counseled regarding appropriate outpatient care and management of his T1DM HTN - history of proteinuria - UA 08/06- +2 protein, +3 glucose +2 blood with 23 RBC count - Nephrology consulted, Dr. Toure - recs appreciated -Per Dr. Toure, level of proteinuria is approaching nephrotic syndrome levels, however still most likely due to his poorly controlled DM. Pt on low protein diet. 24 hour urine protein pending. -FELICE negative -Workup continuing for resistant hypertension --Lisinopril increased to 40 mg PO daily --Amlodipine d/c'd Anemia, chronic - Hgb 7.9 today - Dr. oTure - most likely anemia of chronic disease, recommends to consider investigating underlying infection for anemia and repeat iron studies - Fe 30L, TIBC 244L, %sat 12L, ferritin 123.0 - f/u protein electrophoresis, aldosterone, metanephrine, renin, felice, anca Left Charcot foot - Podiatry consulted: Dr. 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 Manny Myles who recommended outpatient follow up and ultimately surgical management - Blood cx 08/05 negative - ID consulted: Dr. Siddiqui - help appreciated - f.u CRP - f/u Ceretec scan (Should be done today) Hematuria 08/09: urine cx uncollected. Repeated today. f/u Urine cultures still pending PPX - Heparin 5,000 units SC Q8hr for DVT ppx - Protonic 40 mg PO daily for GI ppx - diabetic diet Dispo: Pending CERETEC scan. Patient has very uncontrolled sugars. Prior to being discharged, patient's blood sugars must stabilize. He also needs to follow up with a PMD, the [facility] clinic if he cannot afford a private doctor to continue refilling his antihypertensive medication. Assessment/Plan d/w Dr. Ximena Greenfield PGY-1 <Pritesh Bueno H - Last Filed: 08/10/18 14:56> Objective - Vital Signs/Intake and Output Vital Signs (last 24 hours): Temp Pulse Resp BP Pulse Ox 97.9 F 104 H 20 135/92 H 99 08/10/18 07:45 08/10/18 07:45 08/10/18 07:45 08/10/18 07:45 08/10/18 07:45 Intake and Output: 08/10/18 08/10/18 06:59 18:59 Intake Total 240 Balance 240 - Medications Medications: Current Medications Dextrose (Dextrose 50% Inj) 0 ml IV STAT PRN; Protocol PRN Reason: Hypoglycemia Protocol Dextrose (Glutose 15) 0 gm PO ONCE PRN; Protocol PRN Reason: Hypoglycemia Protocol Glucagon (Glucagen Diagnostic Kit) 0 mg IM STAT PRN; Protocol PRN Reason: Hypoglycemia Protocol Heparin Sodium (Porcine) (Heparin) 5,000 units SC Q8 COUNTS INCLUDE 234 BEDS AT THE [facility] Last Admin: 08/10/18 05:15 Dose: Not Given Dextrose (Dextrose 5% In Water 1000 Ml) 1,000 mls @ 0 mls/hr IV .Q0M PRN; Protocol; Per Protocol PRN Reason: Hypoglycemia Protocol Ferric Sodium Gluconate Complex 125 mg/ Sodium Chloride 110 mls @ 110 mls/hr IVPB DAILY COUNTS INCLUDE 234 BEDS AT THE [facility] Stop: 08/15/18 10:59 Last Admin: 08/10/18 10:34 Dose: 110 mls/hr Insulin Aspart (Novolog) 8 unit SC ACTID COUNTS INCLUDE 234 BEDS AT THE [facility] Last Admin: 08/10/18 12:45 Dose: 8 unit Insulin Detemir (Levemir) 20 unit SC HS COUNTS INCLUDE 234 BEDS AT THE [facility] Last Admin: 08/09/18 21:27 Dose: 20 unit Lisinopril (Zestril) 40 mg PO DAILY COUNTS INCLUDE 234 BEDS AT THE [facility] Ondansetron HCl (Zofran Inj) 4 mg IVP Q4 PRN PRN Reason: Nausea/Vomiting Last Admin: 08/06/18 06:56 Dose: 4 mg Pantoprazole Sodium (Protonix Ec Tab) 40 mg PO DAILY COUNTS INCLUDE 234 BEDS AT THE [facility] Last Admin: 08/10/18 10:20 Dose: 40 mg - Labs Labs: 08/10/18 06:48 08/10/18 06:48 Attending/Attestation - Attestation I have personally seen and examined this patient.: Yes I have fully participated in the care of the patient.: Yes I have reviewed all pertinent clinical information, including history, physical exam and plan: Yes Notes (Text): 08/10/18 14:56 Medical attending: Patient was seen and examined by me, reviewed the above note by the medical staff director and agree with the above note. Unfortunately I was later notified after we saw the patient that he decided to leave [place]. The patient explained that he was not happy about being in the hospital for prolonged period of time I explained to him that our concern was with his left lower extremity. He does have a history of Charcot foot disease. Earlier he had MRIs the lower extremity to evaluate for potential osteomyelitis and the results of this MRI was inconclusive. As result a WBC Ceretec scan was ordered by the weekend team however it had to be put off until today. The patient explains that he understands why the white blood cell scan could not be done over the weekend however he simply does not want to stay. Later on I was informed by medical staff director that he already signed out AMA. As mentioned previously this is a patient with history of diabetes, came in with DKA. And our concern is that this will happen over and over again. Pritesh Bueno
--- NOTE | 2018-08-10 13:56 | CP.PCM.PN ---
Subjective - Date & Time of Evaluation Date of Evaluation: 08/10/18 Time of Evaluation: 08:45 - Subjective Subjective: Julian Torres PGY 2 - Nephrology Progress Note Dr. Toure Patient seen and examined this AM. No acute events reported overnight. Patient without complaints today. Objective - Vital Signs/Intake and Output Vital Signs (last 24 hours): Temp Pulse Resp BP Pulse Ox 97.9 F 104 H 20 135/92 H 99 08/10/18 07:45 08/10/18 07:45 08/10/18 07:45 08/10/18 07:45 08/10/18 07:45 Intake and Output: 08/10/18 08/10/18 06:59 18:59 Intake Total 240 Balance 240 - Medications Medications: Current Medications Dextrose (Dextrose 50% Inj) 0 ml IV STAT PRN; Protocol PRN Reason: Hypoglycemia Protocol Dextrose (Glutose 15) 0 gm PO ONCE PRN; Protocol PRN Reason: Hypoglycemia Protocol Glucagon (Glucagen Diagnostic Kit) 0 mg IM STAT PRN; Protocol PRN Reason: Hypoglycemia Protocol Heparin Sodium (Porcine) (Heparin) 5,000 units SC Q8 [facility] Last Admin: 08/10/18 05:15 Dose: Not Given Dextrose (Dextrose 5% In Water 1000 Ml) 1,000 mls @ 0 mls/hr IV .Q0M PRN; Protocol; Per Protocol PRN Reason: Hypoglycemia Protocol Ferric Sodium Gluconate Complex 125 mg/ Sodium Chloride 110 mls @ 110 mls/hr IVPB DAILY [facility] Stop: 08/15/18 10:59 Last Admin: 08/10/18 10:34 Dose: 110 mls/hr Insulin Aspart (Novolog) 8 unit SC ACTID [facility] Last Admin: 08/10/18 12:45 Dose: 8 unit Insulin Detemir (Levemir) 20 unit SC HS [facility] Last Admin: 08/09/18 21:27 Dose: 20 unit Lisinopril (Zestril) 40 mg PO DAILY [facility] Ondansetron HCl (Zofran Inj) 4 mg IVP Q4 PRN PRN Reason: Nausea/Vomiting Last Admin: 08/06/18 06:56 Dose: 4 mg Pantoprazole Sodium (Protonix Ec Tab) 40 mg PO DAILY [facility] Last Admin: 08/10/18 10:20 Dose: 40 mg - Labs Labs: 08/10/18 06:48 08/10/18 06:48 - Constitutional Appears: No Acute Distress - Head Exam Head Exam: ATRAUMATIC, NORMOCEPHALIC - Eye Exam Eye Exam: EOMI, PERRL - ENT Exam ENT Exam: Mucous Membranes Moist - Neck Exam Neck Exam: Full ROM - Respiratory Exam Respiratory Exam: Clear to Ausculation Bilateral, NORMAL BREATHING PATTERN - Cardiovascular Exam Cardiovascular Exam: REGULAR RHYTHM, +S1, +S2 - GI/Abdominal Exam GI & Abdominal Exam: Soft, Normal Bowel Sounds. absent: Firm, Guarding, Rigid, Tenderness - Extremities Exam Extremities Exam: Full ROM, Normal Capillary Refill Additional comments: left leg lower edema - Neurological Exam Neurological Exam: Alert, Awake, Normal Gait, Oriented x3 Neuro motor strength exam: Left Upper Extremity: 5, Right Upper Extremity: 5, Left Lower Extremity: 5, Right Lower Extremity: 5 - Psychiatric Exam Psychiatric exam: Normal Affect, Normal Mood - Skin Skin Exam: Dry, Intact Assessment and Plan - Assessment and Plan (Free Text) Assessment: 28 year old AA male with past medical history of DM1, HTN, homelessness who presented to [facility] complaining of back and neck pain. Patient was evaluated and found to have elevated blood glucose and anion gap. Patient admitted for DKA and proteinuria. Patient is stable from nephrology standpoint, continuing to work up patient CKD and proteinuria. 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 Toure Patient seen, case and plan discussed with attending, Dr. Toure
--- NOTE | 2018-08-10 15:12 | CP.PCM.DIS ---
<Danial Greenfield - Last Filed: 08/10/18 15:09> Provider - Provider Date of Admission: 08/04/18 11:42 Attending physician: Pritesh Bueno DO Time Spent in preparation of Discharge (in minutes): 45 Diagnosis - Discharge Diagnosis (1) DKA (diabetic ketoacidoses) Status: Acute (2) Uncontrolled type 1 diabetes mellitus Status: Chronic (3) Hyperglycemia due to type 1 diabetes mellitus Status: Acute (4) Hypoglycemia due to type 1 diabetes mellitus Status: Acute (5) Charcot foot due to diabetes mellitus Status: Chronic Hospital Course - Lab Results Lab Results: Micro Results 08/05/18 15:11 Blood Blood Culture - Preliminary NO GROWTH AFTER 4 DAYS 08/05/18 15:11 Blood Blood Culture - Preliminary NO GROWTH AFTER 4 DAYS Most Recent Lab Values WBC 5.9 K/uL (4.8-10.8) 08/10/18 06:48 RBC 2.86 Mil/uL (4.40-5.90) L 08/10/18 06:48 Hgb 7.9 g/dL (12.0-18.0) L 08/10/18 06:48 Hct 23.8 % (35.0-51.0) L 08/10/18 06:48 MCV 83.3 fL (80.0-94.0) 08/10/18 06:48 MCH 27.7 pg (27.0-31.0) 08/10/18 06:48 MCHC 33.2 g/dL (33.0-37.0) 08/10/18 06:48 RDW 14.5 % (11.5-14.5) 08/10/18 06:48 Plt Count 331 K/uL (130-400) 08/10/18 06:48 MPV 8.0 fL (7.2-11.7) 08/10/18 06:48 Neut % (Auto) 73.3 % (50.0-75.0) 08/10/18 06:48 Lymph % (Auto) 18.3 % (20.0-40.0) L 08/10/18 06:48 Rolette % (Auto) 6.3 % (0.0-10.0) 08/10/18 06:48 Eos % (Auto) 1.1 % (0.0-4.0) 08/10/18 06:48 Baso % (Auto) 1.0 % (0.0-2.0) 08/10/18 06:48 Neut # (Auto) 4.3 K/uL (1.8-7.0) 08/10/18 06:48 Lymph # (Auto) 1.1 K/uL (1.0-4.3) 08/10/18 06:48 Rolette # (Auto) 0.4 K/uL (0.0-0.8) 08/10/18 06:48 Eos # (Auto) 0.1 K/uL (0.0-0.7) 08/10/18 06:48 Baso # (Auto) 0.1 K/uL (0.0-0.2) 08/10/18 06:48 Retic Count 1.8 % (0.5-1.5) H D 08/06/18 17:19 Sodium 140 mmol/L (132-148) 08/10/18 06:48 Potassium 4.7 mmol/L (3.6-5.2) 08/10/18 06:48 Chloride 106 mmol/L (98-107) 08/10/18 06:48 Carbon Dioxide 23 mmol/L (22-30) 08/10/18 06:48 Anion Gap 15 (10-20) 08/10/18 06:48 BUN 34 mg/dL (9-20) H 08/10/18 06:48 Creatinine 1.5 mg/dL (0.8-1.5) 08/10/18 06:48 Est GFR ( Amer) > 60 08/10/18 06:48 Est GFR (Non-Af Amer) 56 08/10/18 06:48 POC Glucose (mg/dL) 75 mg/dL (65-110) 08/10/18 11:20 Random Glucose 208 mg/dL (75-110) H 08/10/18 06:48 Hemoglobin A1c 10.3 % (4.2-6.5) H 08/04/18 05:54 Lactic Acid 0.9 mmol/L (0.7-2.1) 08/04/18 06:00 Calcium 9.4 mg/dl (8.6-10.4) 08/10/18 06:48 Phosphorus 3.5 mg/dL (2.5-4.5) 08/10/18 06:48 Magnesium 1.6 mg/dL (1.6-2.3) 08/10/18 06:48 Iron 30 ug/dL (49-181) L 08/07/18 07:09 TIBC 244 ug/dL (250-450) L 08/07/18 07:09 % Saturation 12 (20-55) L 08/07/18 07:09 Ferritin 123.0 ng/mL 08/07/18 07:09 Total Bilirubin 0.2 mg/dL (0.2-1.3) 08/10/18 06:48 AST 28 U/L (17-59) 08/10/18 06:48 ALT 27 U/L (21-72) 08/10/18 06:48 Alkaline Phosphatase 109 U/L (38-126) 08/10/18 06:48 Total Protein 7.5 g/dL (6.3-8.3) 08/10/18 06:48 Albumin 3.4 g/dL (3.5-5.0) L 08/10/18 06:48 Globulin 4.2 gm/dL (2.2-3.9) H 08/10/18 06:48 Albumin/Globulin Ratio 0.8 (1.0-2.1) L 08/10/18 06:48 Lipase 43 U/L (23-300) 08/04/18 05:54 Urine Color Straw (YELLOW) 08/06/18 12:33 Urine Clarity Clear (Clear) 08/06/18 12:33 Urine pH 5.0 (5.0-8.0) 08/06/18 12:33 Ur Specific Troy 1.011 (1.003-1.030) 08/06/18 12:33 Urine Protein 2+ mg/dL (NEGATIVE) H 08/06/18 12:33 Urine Glucose (UA) 3+ mg/dL (Normal) H 08/06/18 12:33 Urine Ketones Negative mg/dL (NEGATIVE) 08/06/18 12:33 Urine Blood 2+ (NEGATIVE) H 08/06/18 12:33 Urine Nitrate Negative (NEGATIVE) 08/06/18 12:33 Urine Bilirubin Negative (NEGATIVE) 08/06/18 12:33 Urine Urobilinogen Normal mg/dL (0.2-1.0) 08/06/18 12:33 Ur Leukocyte Esterase Neg Rowdy/uL (Negative) 08/06/18 12:33 Urine WBC (Auto) < 1 /hpf (0-5) 08/06/18 12:33 Urine RBC (Auto) 23 /hpf (0-3) H 08/06/18 12:33 Urine Bacteria Occ (<OCC) H 08/06/18 12:33 Ur Random Creatinine 65.0 mg/dL 08/07/18 18:29 U Random Total Protein 2475 mg/g creat (22-128) H 08/07/18 18:29 Ur Random Sodium 85 mmol/L 08/07/18 18:29 Ur Random Potassium 27.4 mmol/L 08/07/18 18:29 B-Hydroxybutyrate 1.05 mM (0.02-0.27) H 08/04/18 07:18 DARWIN Screen Negative (Negative) 08/07/18 07:09 RPR Nonreactive (NONREACTIVE) 08/06/18 17:19 - Hospital Course Hospital Course: HPI: Patient is a 28 year old male with past medical history of DM I and HTN who presents to [facility] ([facility] on 08/04 complaining of mild abdominal pain, chills, nausea, vomiting, and diarrhea for duration of 3 days. States that patient had two episodes of vomiting yesterday preceded by 3 episodes of vomiting two days ago, all non-bloody non-bilious. Patient admits to three episodes of diarrhea, the most recent episode yesterday evening. Denies dark tarry stool or bright red blood in stool. Patient also complains of mild neck pain for duration of 2 days, worse with movement and feels muscular in nature. On review of system patient also admits to dizziness and headaches. Patient states that he is compliant with his medications and takes his insulin every day , before meals and at bedtime. Admits to decreased appetite the past few days- per patient this is partially due to feeling ill and also due to recent social stressors. His last meal was yogurt yesterday at 6:00 PM. Patient was diagnosed with DM I approximately 13 years ago and admits to recent hospitalizations because of his disease. Patient recalls that his last hospitalization was in June for a syncopal episode at work. Patient currently does not have a PMD but has found a doctor that he would like to establish as his PMD. The last outpatient physician that he saw was at [facility]. Additionally, patient admits to multiple personal stressors in his life and states that he recently was without health insurance or a home for duration of one year. Patient denies fevers, changes to vision/hearing, nasal congestion, sore throat , cough, shortness of breath, chest pain, heart palpitations, constipation, arthralgias, neuropathy, dysuria, increased urinary frequency, polyphagia, polydipsia, recent illnesses. PMHx: DM I, HTN Medications: Insulin Aspart 8 units TID and Insulin Levemir 30 units at night. 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 Anion gap did close in the emergency room and patient was admitted to [facility] for management of hyperglycemia and his brittle , uncontrolled T1DM. Patient was started on his home insulin regimen of Insulin Aspart 8 units TID and Insulin Levemir 30 units at night, which was then changed to Aspart 8 ACHS/Levemir 30 HS due to patient becoming persistently hypoglycemic. Nephrology (Dr. Toure) was consulted for resistent hypertension and 2+ proteinurea. Per Dr. Toure, protein/creatinine ratio of 3.3 is approaching nephrotic syndrome levels, but this is probably still due to diabetic nephropathy due to his uncontrolled T1DM. Work up for resistant hypertension was still pending results, including metanephrines, protein electrophoresis, aldosterone, ANCA, ESR. DARWIN did come back negative. Patient was also noted to have left lower extremity edema, deformity, and skin changes. Podiatry was consulted via phone, Dr. Myles (sees pt in office), for chronic LLE and dermatologic manifestations. He stated that patient had had a bad case of diabetic Charcot foot, and had many balbir changes, recommending outpatient follow up and ultimately surgical management. However, MRI of the lower extremity was performed, which was equivocal for neuropathy joint vs osteomyelitis septic arthritis. Of note, patient has had surgical procedure for OM in the past. Blood cultures came back negative x5 days. Because of equivocal MRI, patient was pending [facility] WBC scan to rule out osteomyelitis. This scan was planned to be performed today (08/10), however patient signed out AMA prior to this imaging study being performed. Imaging: Chest X-Ray (08/04/2018): No active disease MRI L Lower Extremity (08/07/2018): Foci of bony erosion and cortical destruction noted at the talar dome and posterior aspect of the distal tibia articular surface. the differential consideration includes osteomyelitis septic arthritis and neuropathy joint. Diffuse heterogeneous increased soft tissue signal suggestive of myositis and tendinopathy. Moderate joint effusion. Plan: Patient signed out against medical advice (AMA) Patient counseled about the risks of leaving AMA including DKA, hypoglycemic emergency, osteomyelitis, foot necrosis requiring amputation, sepsis and septic shock, cardiac arrest, acute respiratory failure, and sudden . Explained to patient that all physicians, nurses, and other care providers could not be held responsible for any complications that may occur as a result of his medical conditions. Patient stated that he understood all risks and chose to leave against medical advice. Patient was offered prescriptions for his insulin and other home meds and patient refused. Discharge Exam - Head Exam Head Exam: ATRAUMATIC, NORMOCEPHALIC - Additional Findings Additional findings: See today's progress note for physical exam findings Discharge Plan - Follow Up Plan Condition: GUARDED Disposition: AGAINST MEDICAL ADVICE Instructions: Type 1 Diabetes Additional Instructions: Patient signed out against medical advice (AMA) Patient counseled about the risks of leaving AMA including DKA, hypoglycemic emergency, osteomyelitis, foot necrosis requiring amputation, sepsis and septic shock, cardiac arrest, acute respiratory failure, and sudden . Explained to patient that all physicians, nurses, and other care providers could not be held responsible for any complications that may occur as a result of his medical conditions. Patient stated that he understood all risks and chose to leave against medical advice. Patient was offered prescriptions for his insulin and other home meds and patient refused. Referrals: Non [facility] Provider, [Non-Staff] - <Pritesh Bueno - Last Filed: 08/10/18 15:54> Provider - Provider Date of Admission: 08/04/18 11:42 Attending physician: Pritesh Bueno DO Hospital Course - Lab Results Lab Results: Micro Results 08/05/18 15:11 Blood Blood Culture - Final NO GROWTH AFTER 5 DAYS 08/05/18 15:11 Blood Gram Stain - Final TEST NOT PERFORMED 08/05/18 15:11 Blood Blood Culture - Final NO GROWTH AFTER 5 DAYS 08/05/18 15:11 Blood Gram Stain - Final TEST NOT PERFORMED Most Recent Lab Values WBC 5.9 K/uL (4.8-10.8) 08/10/18 06:48 RBC 2.86 Mil/uL (4.40-5.90) L 08/10/18 06:48 Hgb 7.9 g/dL (12.0-18.0) L 08/10/18 06:48 Hct 23.8 % (35.0-51.0) L 08/10/18 06:48 MCV 83.3 fL (80.0-94.0) 08/10/18 06:48 MCH 27.7 pg (27.0-31.0) 08/10/18 06:48 MCHC 33.2 g/dL (33.0-37.0) 08/10/18 06:48 RDW 14.5 % (11.5-14.5) 08/10/18 06:48 Plt Count 331 K/uL (130-400) 08/10/18 06:48 MPV 8.0 fL (7.2-11.7) 08/10/18 06:48 Neut % (Auto) 73.3 % (50.0-75.0) 08/10/18 06:48 Lymph % (Auto) 18.3 % (20.0-40.0) L 08/10/18 06:48 Rolette % (Auto) 6.3 % (0.0-10.0) 08/10/18 06:48 Eos % (Auto) 1.1 % (0.0-4.0) 08/10/18 06:48 Baso % (Auto) 1.0 % (0.0-2.0) 08/10/18 06:48 Neut # (Auto) 4.3 K/uL (1.8-7.0) 08/10/18 06:48 Lymph # (Auto) 1.1 K/uL (1.0-4.3) 08/10/18 06:48 Rolette # (Auto) 0.4 K/uL (0.0-0.8) 08/10/18 06:48 Eos # (Auto) 0.1 K/uL (0.0-0.7) 08/10/18 06:48 Baso # (Auto) 0.1 K/uL (0.0-0.2) 08/10/18 06:48 Retic Count 1.8 % (0.5-1.5) H D 08/06/18 17:19 Sodium 140 mmol/L (132-148) 08/10/18 06:48 Potassium 4.7 mmol/L (3.6-5.2) 08/10/18 06:48 Chloride 106 mmol/L (98-107) 08/10/18 06:48 Carbon Dioxide 23 mmol/L (22-30) 08/10/18 06:48 Anion Gap 15 (10-20) 08/10/18 06:48 BUN 34 mg/dL (9-20) H 08/10/18 06:48 Creatinine 1.5 mg/dL (0.8-1.5) 08/10/18 06:48 Est GFR ( Amer) > 60 08/10/18 06:48 Est GFR (Non-Af Amer) 56 08/10/18 06:48 POC Glucose (mg/dL) 75 mg/dL (65-110) 08/10/18 11:20 Random Glucose 208 mg/dL (75-110) H 08/10/18 06:48 Hemoglobin A1c 10.3 % (4.2-6.5) H 08/04/18 05:54 Lactic Acid 0.9 mmol/L (0.7-2.1) 08/04/18 06:00 Calcium 9.4 mg/dl (8.6-10.4) 08/10/18 06:48 Phosphorus 3.5 mg/dL (2.5-4.5) 08/10/18 06:48 Magnesium 1.6 mg/dL (1.6-2.3) 08/10/18 06:48 Iron 30 ug/dL (49-181) L 08/07/18 07:09 TIBC 244 ug/dL (250-450) L 08/07/18 07:09 % Saturation 12 (20-55) L 08/07/18 07:09 Ferritin 123.0 ng/mL 08/07/18 07:09 Total Bilirubin 0.2 mg/dL (0.2-1.3) 08/10/18 06:48 AST 28 U/L (17-59) 08/10/18 06:48 ALT 27 U/L (21-72) 08/10/18 06:48 Alkaline Phosphatase 109 U/L (38-126) 08/10/18 06:48 Total Protein 7.5 g/dL (6.3-8.3) 08/10/18 06:48 Albumin 3.4 g/dL (3.5-5.0) L 08/10/18 06:48 Globulin 4.2 gm/dL (2.2-3.9) H 08/10/18 06:48 Albumin/Globulin Ratio 0.8 (1.0-2.1) L 08/10/18 06:48 Lipase 43 U/L (23-300) 08/04/18 05:54 Urine Color Straw (YELLOW) 08/06/18 12:33 Urine Clarity Clear (Clear) 08/06/18 12:33 Urine pH 5.0 (5.0-8.0) 08/06/18 12:33 Ur Specific Troy 1.011 (1.003-1.030) 08/06/18 12:33 Urine Protein 2+ mg/dL (NEGATIVE) H 08/06/18 12:33 Urine Glucose (UA) 3+ mg/dL (Normal) H 08/06/18 12:33 Urine Ketones Negative mg/dL (NEGATIVE) 08/06/18 12:33 Urine Blood 2+ (NEGATIVE) H 08/06/18 12:33 Urine Nitrate Negative (NEGATIVE) 08/06/18 12:33 Urine Bilirubin Negative (NEGATIVE) 08/06/18 12:33 Urine Urobilinogen Normal mg/dL (0.2-1.0) 08/06/18 12:33 Ur Leukocyte Esterase Neg Rowdy/uL (Negative) 08/06/18 12:33 Urine WBC (Auto) < 1 /hpf (0-5) 08/06/18 12:33 Urine RBC (Auto) 23 /hpf (0-3) H 08/06/18 12:33 Urine Bacteria Occ (<OCC) H 08/06/18 12:33 Ur Random Creatinine 65.0 mg/dL 08/07/18 18:29 U Random Total Protein 2475 mg/g creat (22-128) H 08/07/18 18:29 Ur Random Sodium 85 mmol/L 08/07/18 18:29 Ur Random Potassium 27.4 mmol/L 08/07/18 18:29 B-Hydroxybutyrate 1.05 mM (0.02-0.27) H 08/04/18 07:18 DARWIN Screen Negative (Negative) 08/07/18 07:09 RPR Nonreactive (NONREACTIVE) 08/06/18 17:19 Attending/Attestation - Attestation I have personally seen and examined this patient.: Yes I have fully participated in the care of the patient.: Yes I have reviewed all pertinent clinical information, including history, physical exam and plan: Yes Notes (Text): 08/10/18 15:54 Medical attending: Patient was seen and examined earlier in the day by me with the medical cash poster. I reviewed the above note by resident and was later informed that the patient was leaving A. As mentioned above the patient has history of diabetes that is very difficult to control, he's been here with DKA. Furthermore as mentioned previously there was concern for the left lower extremity since it is much enlarged. He had MRI that extremity the did not definitively show osteomyelitis. There is a history of Charcot joints disease of the lower extremity. Considering that the patient has a history of repeated hospital admissions for DKA/uncontrolled diabetes I hope that he'll be taking his medications as prescribed Thank you very much, Pritesh Bueno
[2018-08-11 08:46] LABS: CREATININE, 24 HOUR URINE 1.6 g/24 h (0.63-2.50)
[2018-08-11 17:07] LABS: ANCA SCREEN NEGATIVE (NEGATIVE)
== END 2018-08-10 15:05 | disposition left against medical advice (07) | DRG 566 ==
LOC: C.ER 03:39 → SUPCPDRO 03:39 → C.9E 11:42 → C.3T 16:51
PROVIDERS: ADMIT Hospitalist; ATTEND Hospitalist
DX: E10.10 Type 1 diabetes mellitus with ketoacidosis without coma (principal); N17.9 Acute kidney failure, unspecified; E86.0 Dehydration; E87.5 Hyperkalemia; N18.9 Chronic kidney disease, unspecified; Z79.4 Long term (current) use of insulin; E10.21 Type 1 diabetes mellitus with diabetic nephropathy; D63.8 Anemia in other chronic diseases classified elsewhere; E10.22 Type 1 diabetes mellitus with diabetic chronic kidney disease; E10.610 Type 1 diabetes mellitus with diabetic neuropathic arthropathy; E10.69 Type 1 diabetes mellitus with other specified complication; F12.90 Cannabis use, unspecified, uncomplicated; F41.9 Anxiety disorder, unspecified; I12.9 Hypertensive chronic kidney disease with stage 1 through stage 4 chronic kidney disease, or unspecified chronic kidney disease; Z59.0 Homelessness; M21.969 Unspecified acquired deformity of unspecified lower leg; M14.679 Charcot's joint, unspecified ankle and foot

== ENCOUNTER 2018-08-27 01:57 | Emergency (ER) | payer MEDICAID ==
[2018-08-27 02:08] VITALS: RESP 20
--- NOTE | 2018-08-27 03:10 | C.PDOC ---
History Of Present Illness 28 year old male with PMHx of HTH and DM presents to the ED for evaluation of worsening left leg swelling for the past couple of months. Patient reports he went to see Dr. Myles who did a MRI that came back normal. Patient however states he notices his leg is more swollen than normal and is painful to walk on. Patient denies fever, chills, nausea, vomit, diarrhea, weakness, numbness. Time Seen by Provider: 08/27/18 02:02 Chief Complaint (Nursing): Lower Extremity Problem/Injury Past Medical History Reviewed: Historical Data, Nursing Documentation, Vital Signs Vital Signs: Last Vital Signs Temp 98.7 F 08/27/18 02:05 Pulse 100 H 08/27/18 02:05 Resp 20 08/27/18 02:05 BP 151/88 H 08/27/18 02:05 Pulse Ox 100 08/27/18 02:05 - Medical History PMH: Diabetes (Type 1), Fractures (R shoulder 2014), HTN Denies: Chronic Kidney Disease - [facility] Procedures EXCISION OF L FOOT SUBCU/FASCIA, OPEN APPROACH (09/16/17) FLUOROSCOPY OF SUPERIOR VENA CAVA, GUIDANCE (09/16/17) INSERTION OF INFUSION DEV INTO SUP VENA CAVA, PERC APPROACH (09/16/17) REPLACE L FOOT SKIN W NONAUT SUB, FULL THICK, BRIM SHAPER (09/16/17) Family History: States: Diabetes (Grandmother on Fathers side) - Social History Hx Tobacco Use: No Hx Alcohol Use: No Hx Substance Use: Yes (marijuana user) - Immunization History Hx Tetanus Toxoid Vaccination: No Hx Influenza Vaccination: No Hx Pneumococcal Vaccination: No ED Course And Treatment O2 Sat by Pulse Oximetry: 100 Disposition - Disposition
--- NOTE | 2018-08-27 03:14 | C.PDOC ---
History Of Present Illness 28 year old male with PMHx of HTH and DM presents to the ED for evaluation of worsening left leg swelling for the past couple of months. Patient reports he went to see Dr. Myles who did a MRI that came back normal. Patient however states he notices his leg is more swollen than normal and is painful to walk on. Patient denies fever, chills, nausea, vomit, diarrhea, weakness, numbness. Time Seen by Provider: 08/27/18 02:02 Chief Complaint (Nursing): Lower Extremity Problem/Injury History Per: Patient History/Exam Limitations: no limitations Onset/Duration Of Symptoms: Persistent Current Symptoms Are (Timing): Worse Recent travel outside of the [place]: No Additional History Per: Patient - Ankle/Foot Description Of Injury: Other Currently Unable To: Bend Or Move Past Medical History Reviewed: Historical Data, Nursing Documentation, Vital Signs Vital Signs: Last Vital Signs Temp 98.7 F 08/27/18 02:05 Pulse 100 H 08/27/18 02:05 Resp 20 08/27/18 02:05 BP 151/88 H 08/27/18 02:05 Pulse Ox 100 08/27/18 02:05 - Medical History PMH: Diabetes (Type 1), Fractures (R shoulder 2014), HTN Denies: Chronic Kidney Disease Surgical History: No Surg Hx - [facility] Procedures EXCISION OF L FOOT SUBCU/FASCIA, OPEN APPROACH (09/16/17) FLUOROSCOPY OF SUPERIOR VENA CAVA, GUIDANCE (09/16/17) INSERTION OF INFUSION DEV INTO SUP VENA CAVA, PERC APPROACH (09/16/17) REPLACE L FOOT SKIN W NONAUT SUB, FULL THICK, TRAVEL NURSE (09/16/17) Family History: States: Diabetes (Grandmother on Fathers side) - Social History Hx Tobacco Use: No Hx Alcohol Use: No Hx Substance Use: Yes (marijuana user) - Immunization History Hx Tetanus Toxoid Vaccination: No Hx Influenza Vaccination: No Hx Pneumococcal Vaccination: No Review Of Systems Constitutional: Negative for: Fever, Chills Cardiovascular: Negative for: Chest Pain Respiratory: Negative for: Shortness of Breath Gastrointestinal: Negative for: Nausea, Vomiting Musculoskeletal: Positive for: Foot Pain Neurological: Negative for: Weakness, Numbness Physical Exam - Physical Exam Appears: Non-toxic, No Acute Distress Skin: Normal Color, Warm, Dry, No Rash Head: Atraumatic, Normacephalic Eye(s): bilateral: Normal Inspection Oral Mucosa: Moist Extremity: Normal ROM, Tenderness (left lower leg and foot), Capillary Refill (< 2 seconds), Swelling (moderate diffusely left lower leg and foot) Extremity: Bilateral: Normal Color And Temperature Pulses: Left Dorsalis Pedis: Normal, Right Dorsalis Pedis: Normal Neurological/Psych: Oriented x3, Normal Speech, Normal Motor, Normal Sensation Gait: Steady ED Course And Treatment O2 Sat by Pulse Oximetry: 100 (ON RA) Pulse Ox Interpretation: Normal Medical Decision Making Medical Decision Making: Patient reports that his leg is at baseline and is requesting to sleep. He declines pain medcation at this time. On re-exam, the patient is resting comfortably. Ambulatory in the ED with steady gait. Disposition - Disposition Referrals: [facility] [Outside] [email or web address] [Outside] Disposition: HOME/ ROUTINE Disposition Time: 05:26 Condition: STABLE Additional Instructions: Follow up with the medical doctor within 1-2 days. Return if worsened. Instructions: Dependent Edema (DC) Forms: [employer] ([place]) - Clinical Impression Clinical Impression: Leg edema - PA / [employer] / Resident Statement MD/DO has reviewed & agrees with the documentation as recorded. - Scribe Statement The provider has reviewed the documentation as recorded by the Scribe Wilfrido Amaya All medical record entries made by the Scribe were at my direction and personal ly dictated by me. I have reviewed the chart and agree that the record accurately reflects my personal performance of the history, physical exam, medical decision making, and the department course for this patient. I have also personally directed, reviewed, and agree with the discharge instructions and disposition.
[2018-08-27 06:03] VITALS: BP 146/70; PULSE 89; TEMP 97.4; O2SAT 98
== END 2018-08-27 06:13 | disposition home or self-care (01) ==
LOC: C.ER 01:57
DX: R60.0 Localized edema (principal)

== ENCOUNTER 2018-08-27 10:03 | Emergency (ER) | payer MEDICAID ==
[2018-08-27 10:16] VITALS: O2SAT 100
--- NOTE | 2018-08-27 11:05 | C.PDOC ---
History Of Present Illness 28 y/o homeless male, w/PMhx of diabetes and HTN, brought to ER by EMS for evaluation of altered mental status with blood sugar levels 27. Patient was treated with glucagon on the field which increases his blood sugar levels. Currently, patient is awake and alert. He states that he had his last meal at 8 pm and his last dose of insulin at 9 pm last night. Patient is also complaining of chronic leg pain and swelling which has been present for the past few months. Patient had a negative Doppler study of the left leg in June 2018.He was evaluated for the same complaint last night in [facility] ER. At the time, he did not have any vascular studies done and he was not treated with insulin. Denies ETOH use, fever, chills, and other complaints at this time. Time Seen by Provider: 08/27/18 10:23 Chief Complaint (Nursing): Altered Mental Status History Per: Patient History/Exam Limitations: None Onset/Duration Of Symptoms: Days Current Symptoms Are (Timing): Still Present Severity: Moderate Past Medical History Reviewed: Historical Data, Nursing Documentation, Vital Signs Vital Signs: Last Vital Signs Temp 97.5 F L 08/27/18 10:03 Pulse 96 H 08/27/18 10:03 Resp 18 08/27/18 10:03 BP 165/110 H 08/27/18 10:03 Pulse Ox 100 08/27/18 10:03 - Medical History PMH: Diabetes (Type 1), Fractures (R shoulder 2014), HTN Denies: Chronic Kidney Disease Other Surgeries: Hx of surgeries - [facility] Procedures EXCISION OF L FOOT SUBCU/FASCIA, OPEN APPROACH (09/16/17) FLUOROSCOPY OF SUPERIOR VENA CAVA, GUIDANCE (09/16/17) INSERTION OF INFUSION DEV INTO SUP VENA CAVA, PERC APPROACH (09/16/17) REPLACE L FOOT SKIN W NONAUT SUB, FULL THICK, SPORTS OFFICIAL (09/16/17) Family History: States: Diabetes (Grandmother on Fathers side) - Social History Hx Tobacco Use: No Hx Alcohol Use: No Hx Substance Use: Yes (marijuana user) - Immunization History Hx Tetanus Toxoid Vaccination: No Hx Influenza Vaccination: No Hx Pneumococcal Vaccination: No Review Of Systems Except As Marked, All Systems Reviewed And Found Negative. Constitutional: Negative for: Fever, Chills Gastrointestinal: Negative for: Nausea, Vomiting Musculoskeletal: Positive for: Leg Pain Neurological: Positive for: Altered Mental Status Physical Exam - Physical Exam Appears: Other (slow to respond, however answering questions) Skin: Warm, Dry, Other (dry, flaky skin to bilateral arms) Head: Atraumatic, Normacephalic Eye(s): bilateral: Normal Inspection Nose: Normal Oral Mucosa: Moist Neck: Supple Chest: Symmetrical Cardiovascular: Rhythm Regular Respiratory: Normal Breath Sounds, No Rales, No Rhonchi, No Wheezing Gastrointestinal/Abdominal: Soft, No Tenderness, Distention, No Guarding, No Rebound Extremity: Normal ROM, Tenderness (left leg: tender to touch), Swelling (left leg: gross swelling with venous stasis changes) ED Course And Treatment - Laboratory Results Result Diagrams: 08/27/18 11:04 08/27/18 11:04 O2 Sat by Pulse Oximetry: 100 (RA) Pulse Ox Interpretation: Normal Medical Decision Making Medical Decision Making: Plan: --Labs --UA --Venous Duplex Scan- NAGA Patient feeling better, BS stabilized, vascular study preliminarily negative will d/c Disposition Counseled Patient/Family Regarding: Studies Performed, Diagnosis, Need For Followup - Disposition Referrals: [facility] [Outside] Disposition: HOME/ ROUTINE Disposition Time: 13:40 Condition: FAIR Instructions: Low Blood Sugar, Adult (DC) Forms: [facility] (Uzbek), General Discharge Instructions - POA Present On Arrival: None - Clinical Impression Clinical Impression: Hypoglycemia - Scribe Statement The provider has reviewed the documentation as recorded by the Scribe Kristen Rosales Provider Attestation: All medical record entries made by the Scribe were at my direction and personally dictated by me. I have reviewed the chart and agree that the record accurately reflects my personal performance of the history, physical exam, medical decision making, and the department course for this patient. I have also personally directed, reviewed, and agree with the discharge instructions and disposition.
[2018-08-27 11:10] LABS: BASO # 0.1 K/uL (0.0-0.2); EOS % 0.4 % (0.0-4.0); MEAN CELL VOLUME 84.4 fL (80.0-94.0); MONO # 0.4 K/uL (0.0-0.8); MONO % 4.8 % (0.0-10.0)
[2018-08-27 11:16] LABS: BASO % 0.9 % (0.0-2.0); HEMOGLOBIN 8.9 g/dL (12.0-18.0); LYMPH # 0.7 K/uL (1.0-4.3); LYMPH % 7.9 % (20.0-40.0); MEAN CORPUSCULAR HEMOGLOBIN 27.1 pg (27.0-31.0); MEAN CORPUSCULAR HGB CONC 32.2 g/dL (33.0-37.0); MEAN PLATELET VOLUME 8.5 fL (7.2-11.7); NEUT # 7.1 K/uL (1.8-7.0); PLATELET COUNT 246 K/uL (130-400); RBC 3.29 Mil/uL (4.40-5.90); RED CELL DISTRIBUTION WIDTH 14.8 % (11.5-14.5); WHITE BLOOD COUNT 8.3 K/uL (4.8-10.8)
[2018-08-27 11:32] LABS: ALB/GLOB RATIO 0.9 (1.0-2.1); ALBUMIN 3.6 g/dL (3.5-5.0); ALT/SGPT 27 U/L (21-72); AST/SGOT 23 U/L (17-59); BLOOD UREA NITROGEN 21 mg/dL (9-20); CALCIUM 8.9 mg/dl (8.6-10.4); GFR NON-AFRICAN AMERICAN > 60
[2018-08-27 11:36] LABS: EOSINOPHIL 1 % (0-4); MONOCYTE 4 % (0-10); TOTAL CELLS COUNTED 100
[2018-08-27 11:37] LABS: ANISOCYTOSIS SLIGHT; HYPOCHROMIC SLIGHT; LYMPHOCYTE 10 % (20-40); NEUTROPHIL 85 % (50-75); PLATELET ESTIMATE NORMAL (NORMAL); POIKILOCYTOSIS SLIGHT
[2018-08-27 11:38] LABS: BURR CELLS SLIGHT; OVALOCYTES SLIGHT; TARGET CELLS SLIGHT
[2018-08-27 12:20] LABS: URINE BACTERIA RARE (<OCC); URINE BILIRUBIN NEGATIVE (NEGATIVE); URINE BLOOD 1+ (NEGATIVE); URINE CLARITY Clear (Clear); URINE COLOR Yellow (YELLOW); URINE GLUCOSE (UA) 1+ mg/dL (Normal); URINE LEUKOCYTE ESTERASE NEG Leu/uL (Negative); URINE PROTEIN 3+ mg/dL (NEGATIVE); URINE UROBILINOGEN NORMAL mg/dL (0.2-1.0)
[2018-08-27 12:39] LABS: BARBITURATES, UR NEGATIVE (NEGATIVE); BENZODIAZEPINES, UR NEGATIVE (NEGATIVE); OPIATES, UR NEGATIVE (NEGATIVE); PHENCYCLIDINE, UR NEGATIVE (NEGATIVE)
[2018-08-27 13:32] VITALS: BP 168/115; PULSE 107; RESP 17; TEMP 98.5
--- NOTE | 2018-08-28 11:42 | VASCLAB ---
Date of service: 08/27/2018 PROCEDURE: Left Lower Extremity Venous Duplex Exam. HISTORY: Swelling and pain PRIORS: 06/2018, normal. TECHNIQUE: Left common femoral, femoral, popliteal and posterior tibial, peroneal and great saphenous veins were evaluated. Flow was assessed with color Doppler, compressibility, assessment of phasic flow and augmentation response. Report prepared by LARRY Banks, RVT FINDINGS: LEFT: 1. Common Femoral Vein: 1.1. Compressibility - Fully compressible: Thrombus - None : Flow - Phasic: Augmentation -Normal: Reflux - None. 2. Femoral Vein: 2.1. Compressibility - Fully compressible: Thrombus - None: Flow - Phasic: Augmentation -Normal: Reflux - None. 3. Popliteal Vein: 3.1. Compressibility - Fully compressible: Thrombus - None: Flow - Phasic: Augmentation -Normal: Reflux - None. 4. Posterior Tibial Vein: 4.1. Compressibility - Fully compressible: Thrombus - None: Flow - Phasic: Augmentation -Normal: Reflux - None. 5. Peroneal Vein: 5.1. Compressibility - Fully compressible: Thrombus - None: Flow - Phasic: Augmentation -Normal: Reflux - None. 6. Great Saphenous Vein: 6.1. Compressibility - Fully compressible: Thrombus - None: Flow - Phasic: Augmentation - Normal: Reflux - None. OTHER FINDINGS: A large mass with minimal vascularity was noted in the left groin area, measuring 4.49 x 2.13 cm. IMPRESSION: No evidence of deep or superficial vein thrombosis of the left lower extremity with excellent venous flow. Normal valve function noted of the left side. Normal venous flow noted in the right common femoral vein.
== END 2018-08-27 14:52 | disposition home or self-care (01) ==
LOC: C.ER 10:03
DX: E10.649 Type 1 diabetes mellitus with hypoglycemia without coma (principal); Z79.4 Long term (current) use of insulin

== ENCOUNTER 2018-09-01 20:06 | Emergency (ER) | payer MEDICAID ==
--- NOTE | 2018-09-01 21:11 | C.PDOC ---
History Of Present Illness 28 y/o male presents to the ED complaining he needs a place to stay the night. Additionally patient is occasionally complaining of chronic swelling to the left lower extremity. Patient was evaluated here and had full negative work-up including doppler studies 4 days ago. No new swelling or recent trauma. Patient otherwise denies any chest pain, SOB, fever, chills, nausea, or vomiting. Time Seen by Provider: 09/01/18 21:10 Chief Complaint (Nursing): Lower Extremity Problem/Injury History Per: Patient History/Exam Limitations: no limitations Onset/Duration Of Symptoms: Days, Intermittent Episodes Current Symptoms Are (Timing): Still Present Severity: Mild Pain Scale Rating Of: 4 Recent travel outside of the [place]: No Additional History Per: Prior Records Past Medical History Reviewed: Historical Data, Nursing Documentation, Vital Signs Vital Signs: Last Vital Signs Temp 98.8 F 09/01/18 20:23 Pulse 113 H 09/01/18 20:39 Resp 16 09/01/18 20:39 BP 143/92 H 09/01/18 20:39 Pulse Ox 97 09/01/18 20:39 - Medical History PMH: Diabetes (Type 1), Fractures (R shoulder 2015), HTN Denies: Chronic Kidney Disease Other PMH: Chronic LLE swelling - [facility] Procedures EXCISION OF L FOOT SUBCU/FASCIA, OPEN APPROACH (09/16/17) FLUOROSCOPY OF SUPERIOR VENA CAVA, GUIDANCE (09/16/17) INSERTION OF INFUSION DEV INTO SUP VENA CAVA, PERC APPROACH (09/16/17) REPLACE L FOOT SKIN W NONAUT SUB, FULL THICK, DEVELOPMENTAL BEHAVIORAL PHYSICIAN (09/16/17) Family History: States: Diabetes (Grandmother on Fathers side) - Social History Hx Tobacco Use: No Hx Alcohol Use: No Hx Substance Use: Yes (marijuana user) - Immunization History Hx Tetanus Toxoid Vaccination: No Hx Influenza Vaccination: No Hx Pneumococcal Vaccination: No Review Of Systems Constitutional: Negative for: Fever, Chills Cardiovascular: Negative for: Chest Pain Respiratory: Negative for: Shortness of Breath Gastrointestinal: Negative for: Nausea, Vomiting Musculoskeletal: Positive for: Other (Left lower extremity with chronic swelling) Skin: Negative for: Rash, Lesions Neurological: Negative for: Weakness, Numbness, Incoordination Physical Exam - Physical Exam Appears: Non-toxic, No Acute Distress Skin: Warm, Dry Head: Normacephalic Eye(s): bilateral: Normal Inspection Oral Mucosa: Moist Neck: Trachea Midline, Supple Chest: Symmetrical Cardiovascular: Rhythm Regular Respiratory: No Rales, No Rhonchi, No Wheezing Gastrointestinal/Abdominal: Soft, No Tenderness, No Distention Extremity: Normal ROM, No Calf Tenderness, Swelling (Chronic left leg edema) Extremity: Bilateral: Atraumatic, Normal Color And Temperature Pulses: Left Dorsalis Pedis: Normal, Right Dorsalis Pedis: Normal Neurological/Psych: Oriented x3 ED Course And Treatment O2 Sat by Pulse Oximetry: 97 (RA) Pulse Ox Interpretation: Normal Progress Note: Patient resting comfortably in stretcher, no acute complaints. Records reviewed, patient had negative doppler studies 4 days ago and was discharged home. No new pain or swelling. Reevaluation Time: 05:43 Reassessment Condition: Improved Disposition Counseled Patient/Family Regarding: Studies Performed, Diagnosis, Need For Followup - Disposition Referrals: [facility] [Outside] [facility] [Outside] Disposition: HOME/ ROUTINE Disposition Time: 21:11 Condition: FAIR Instructions: Dependent Edema (DC), Hyperglycemia, Adult (DC) Forms: Consult [employer] (Ugandan) - Clinical Impression Clinical Impression: Leg edema, left, Hyperglycemia - Scribe Statement The provider has reviewed the documentation as recorded by the Scribe (Charleen Paula) Provider Attestation: All medical record entries made by the Scribe were at my direction and personally dictated by me. I have reviewed the chart and agree that the record accurately reflects my personal performance of the history, physical exam, medical decision making, and the department course for this patient. I have also personally directed, reviewed, and agree with the discharge instructions and disposition.
[2018-09-02] MEDS ORDERED: (Novolog) Insulin Aspart, Recombinant 100 u/ml 10 ml vial ONE (01:57)
[2018-09-02] MEDS ORDERED: (Novolog) Insulin Aspart, Recombinant 100 u/ml 10 ml vial SC STA (02:19)
[2018-09-02] MEDS ORDERED: (Novolin R) Insulin Human Regular 100 units/ml vial SC ONE (03:30)
[2018-09-02] MEDS ORDERED: (Novolin R) Insulin Human Regular 100 units/ml vial ONE (03:36)
[2018-09-02 05:48] VITALS: BP 121/81; PULSE 95; RESP 15; TEMP 98.2; O2SAT 95
== END 2018-09-02 06:30 | disposition home or self-care (01) ==
LOC: SUPCPDRO 20:06 → C.ER 20:06
DX: R60.0 Localized edema (principal); E10.65 Type 1 diabetes mellitus with hyperglycemia

== ENCOUNTER 2018-12-12 07:55 | Inpatient (IN) | payer MEDICAID ==
[2018-12-12 07:55] VITALS: BMI 22.5
[2018-12-12] MEDS ORDERED: Dextrose 50% SYRINGE Inj (50 ml) IV STA (08:09)
--- NOTE | 2018-12-12 08:17 | C.PDOC ---
History Of Present Illness 28 year old male with a history of insulin dependent diabetes, bilateral chronic wounds, and osteomyelitis presents to the ED via EMS for evaluation of hypoglycemic seizure prior to arrival. Per EMS glucose on the field was 20. The patient reports he was recently discharged from rehab. He also notes bilateral leg wounds started purulent discharge a few days ago and last wound care visit was 1 week ago. He denies fever, chills, and any other associated symptoms. Time Seen by Provider: 12/12/18 08:01 Chief Complaint (Nursing): Altered Mental Status History Per: Patient, EMS History/Exam Limitations: None Onset/Duration Of Symptoms: Other (prior to arrival. ) Current Symptoms Are (Timing): Still Present Recent travel outside of the [place]: No Additional History Per: EMS Associated Symptoms: denies: Fever, Chills Past Medical History Reviewed: Historical Data, Nursing Documentation, Vital Signs Vital Signs: Last Vital Signs Temp 97.7 F 12/12/18 07:59 Pulse 113 H 12/12/18 07:59 Resp BP 153/96 H 12/12/18 07:59 Pulse Ox 95 12/12/18 07:59 - Medical History PMH: Diabetes (Type 1), Fractures (R shoulder 2015), HTN Denies: Chronic Kidney Disease - [facility] Procedures EXCISION OF L FOOT SUBCU/FASCIA, OPEN APPROACH (09/16/17) FLUOROSCOPY OF SUPERIOR VENA CAVA, GUIDANCE (09/16/17) INSERTION OF INFUSION DEV INTO SUP VENA CAVA, PERC APPROACH (09/16/17) REPLACE L FOOT SKIN W NONAUT SUB, FULL THICK, DISPUTE RESOLUTION SPECIALIST (09/16/17) Family History: States: Diabetes (Grandmother on Fathers side) - Social History Hx Tobacco Use: No Hx Alcohol Use: Yes Hx Substance Use: Yes (marijuana user) - Immunization History Hx Tetanus Toxoid Vaccination: No Hx Influenza Vaccination: No Hx Pneumococcal Vaccination: No Review Of Systems Except As Marked, All Systems Reviewed And Found Negative. Constitutional: Negative for: Fever, Chills Skin: Positive for: Other (bilateral leg wounds. ) Neurological: Positive for: Other (hypoglycemic seizure.) Physical Exam - Physical Exam Appears: Non-toxic, No Acute Distress, Other (generalized weakness. ) Skin: Warm, Dry, Other ((+) bilateral leg wounds with purulent discharge. (+) surrounding erythema.) Head: Atraumatic, Normacephalic Eye(s): bilateral: Normal Inspection Oral Mucosa: Moist Neck: Normal ROM, Supple Chest: Symmetrical Cardiovascular: Rhythm Regular, No Murmur Respiratory: Normal Breath Sounds, No Rales, No Rhonchi, No Wheezing Gastrointestinal/Abdominal: Normal Exam, Soft, No Tenderness Extremity: Normal ROM (x4) Neurological/Psych: Oriented x3, Normal Speech, Normal Cognition, Normal Motor, Normal Sensation, Normal Reflexes ED Course And Treatment - Laboratory Results Result Diagrams: 12/12/18 08:50 12/12/18 08:50 ECG Rhythm: Sinus Tachycardia Interpretation Of ECG: No ST elevations. QT normal. Rate From EC O2 Sat by Pulse Oximetry: 95 (RA) Pulse Ox Interpretation: Normal - Radiology CXR: Interpreted by Me, Viewed By Me CXR Interpretation: Yes: Infiltrates ( right middle lobe.), Cardiomegaly Medical Decision Making Medical Decision Making: Initial plan: -Blood sent. -CXR -EKG -Dextrose -Blood culture -Urine culture -Urinalysis -Glucose POC Dif. dx: Sepsis, pneumonia, hypoglycemia Disposition Discussed With : Gay Ordaz Doctor Will See Patient In The: Hospital Counseled Patient/Family Regarding: Studies Performed, Diagnosis - Disposition Disposition: HOSPITALIZED Disposition Time: 09:34 Condition: GUARDED - Clinical Impression Clinical Impression: Hypoglycemia, Cellulitis, leg, Pneumonia - Scribe Statement The provider has reviewed the documentation as recorded by the Scribe (Shahla Headley) Provider Attestation: All medical record entries made by the Scribe were at my direction and perso niecy dictated by me. I have reviewed the chart and agree that the record accurately reflects my personal performance of the history, physical exam, medical decision making, and the department course for this patient. I have also personally directed, reviewed, and agree with the discharge instructions and disposition.
[2018-12-12] MEDS ORDERED: Moxifloxacin IV 400mg/250ml NS 400 MG/250 ML BAG IVPB SCH (08:30)
[2018-12-12 08:53] LABS: BASO % 0.7 % (0.0-2.0); EOS # 0.1 K/uL (0.0-0.7); EOS % 1.1 % (0.0-4.0); HEMOGLOBIN 8.1 g/dL (12.0-18.0); LYMPH # 0.6 K/uL (1.0-4.3); LYMPH % 8.7 % (20.0-40.0); MEAN CORPUSCULAR HEMOGLOBIN 27.5 pg (27.0-31.0); MEAN CORPUSCULAR HGB CONC 32.4 g/dL (33.0-37.0); MEAN PLATELET VOLUME 7.3 fL (7.2-11.7); MONO # 0.4 K/uL (0.0-0.8); MONO % 6.2 % (0.0-10.0); NEUT # 5.4 K/uL (1.8-7.0); NEUT % 83.3 % (50.0-75.0); RBC 2.92 Mil/uL (4.40-5.90); RED CELL DISTRIBUTION WIDTH 17.3 % (11.5-14.5); WHITE BLOOD COUNT 6.5 K/uL (4.8-10.8)
[2018-12-12 08:57] LABS: PLATELET COUNT 383 K/uL (130-400)
[2018-12-12 08:59] LABS: VENOUS BLOOD GAS BASE EXCESS -7.4 mmol/L (0.0-2.0); VENOUS BLOOD GAS PCO2 45 mmHg (40-60); VENOUS BLOOD GAS PO2 32 mm/Hg (30-55); VENOUS BLOOD PH 7.25 (7.32-7.43)
[2018-12-12 09:01] LABS: INR 1.1; PROTHROMBIN TIME 11.8 SECONDS (9.7-12.2)
[2018-12-12] MEDS ORDERED: Piperacillin/Tazobact 3.375 gm 100 ML IVPB ONE (09:04)
[2018-12-12] MEDS ORDERED: Moxifloxacin IV 400mg/250ml NS 400 MG/250 ML BAG IVPB ONE (09:05)
[2018-12-12 09:08] LABS: ALB/GLOB RATIO 0.7 (1.0-2.1); ALBUMIN 3.4 g/dL (3.5-5.0); ALT/SGPT 13 U/L (21-72); AST/SGOT 31 U/L (17-59); BLOOD UREA NITROGEN 24 mg/dL (9-20); CALCIUM 8.7 mg/dl (8.6-10.4); GFR NON-AFRICAN AMERICAN 56
[2018-12-12] MEDS: Piperacillin/Tazobact 3.375 GM in Sodium Chloride 100 ML IVPB SCH ×3 (09:14→20:30)
[2018-12-12 09:29] LABS: ANISOCYTOSIS SLIGHT; EOSINOPHIL 1 % (0-4); LYMPHOCYTE 13 % (20-40); MONOCYTE 6 % (0-10); NEUTROPHIL 80 % (50-75); PLATELET ESTIMATE NORMAL (NORMAL); TOTAL CELLS COUNTED 100
[2018-12-12 09:30] LABS: HYPOCHROMIC SLIGHT; POIKILOCYTOSIS SLIGHT
[2018-12-12 09:31] LABS: MICROCYTOSIS SLIGHT; OVALOCYTES SLIGHT; SCHISTOCYTES SLIGHT; TEARDROP CELLS SLIGHT
[2018-12-12 09:32] LABS: GIANT PLATELETS PRESENT; LARGE PLATELETS PRESENT; TOXIC GRANULATION PRESENT
[2018-12-12 10:23] LABS: SQUAMOUS EPITHIAL 1 /hpf (0-5); URINE BACTERIA RARE (<OCC); URINE BILIRUBIN NEGATIVE (NEGATIVE); URINE BLOOD NEGATIVE (NEGATIVE); URINE CLARITY Clear (Clear); URINE COLOR Yellow (YELLOW); URINE GLUCOSE (UA) 1+ mg/dL (Normal); URINE LEUKOCYTE ESTERASE NEG Leu/uL (Negative); URINE PROTEIN 3+ mg/dL (NEGATIVE); URINE UROBILINOGEN NORMAL mg/dL (0.2-1.0)
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
--- NOTE | 2018-12-12 11:34 | RAD ---
Date of service: 12/12/2018 HISTORY: Sepsis Patient COMPARISON: No prior. FINDINGS: LUNGS: Diffuse increased interstitial markings with more patchy hazy opacity in the right perihilar region. Findings could represent diffuse interstitial pneumonia with more confluent alveolar-type infiltrates in the right perihilar region however concomitant pulmonary venous congestion to be considered as well. PLEURA: No significant pleural effusion identified, no pneumothorax apparent. CARDIOVASCULAR: No aortic atherosclerotic calcification present. Heart size upper limits of normal/borderline enlarged. No pulmonary vascular congestion. OSSEOUS STRUCTURES: No significant abnormalities. VISUALIZED UPPER ABDOMEN: Normal. OTHER FINDINGS: None. IMPRESSION: Diffuse increased interstitial markings with more patchy hazy opacity in the right perihilar region. Findings could represent diffuse interstitial pneumonia with more confluent alveolar-type infiltrates in the right perihilar region however concomitant pulmonary venous congestion to be considered as well.
[2018-12-12] MEDS ORDERED: Vancomycin 1 GM 1 GM/250 ML BAG IVPB ONE (11:45)
[2018-12-12] MEDS ORDERED: (Novolin R) Insulin Human Regular 100 units/ml vial ONE (13:36)
[2018-12-12] MEDS: (Novolin R) Insulin Human Regular 100 units/ml vial SC SCH ×3 (13:40→21:26)
--- NOTE | 2018-12-12 17:04 | RAD ---
Date of service: 12/12/2018 PROCEDURE: Left Ankle Radiographs. HISTORY: Left foot/ankle ulcer COMPARISON: Comparison made with prior radiographs of the left ankle 07/11/2018. FINDINGS: BONES: Interval progression of destructive changes/resorption of the bones of the ankle and hind/midfoot region (with relative sparing of the distal fibula).. Findings could be secondary to chronic infection and/or Charcot joint. Clinical correlation recommended. Diffuse bilateral soft tissue swelling JOINTS: . As above. SOFT TISSUES: Normal. OTHER FINDINGS: None. IMPRESSION: Interval progression of destructive changes/resorption of the bones of the ankle and hind/midfoot region (with relative sparing of the distal fibula).. Findings could be secondary to chronic infection and/or Charcot joint. Clinical correlation recommended. Diffuse bilateral soft tissue swelling
--- NOTE | 2018-12-12 17:30 | RAD ---
Date of service: 12/12/2018 PROCEDURE: Left Foot Radiographs. HISTORY: Left foot/ankle ulcer COMPARISON: Correlation made with concurrent radiographs of the left ankle and prior radiographs of the left ankle/heel dated 07/11/2018 and 07/10/2018 respectively. FINDINGS: BONES: Interval progression of destructive changes/resorption of the bones of the ankle and hind/midfoot region (with relative sparing of the distal fibula).. Findings could be secondary to chronic infection and/or Charcot joint. Clinical correlation recommended. Significant diffuse soft tissue swelling JOINTS: As above. SOFT TISSUES: Significant diffuse soft tissue swelling OTHER FINDINGS: None. IMPRESSION: Interval progression of destructive changes/resorption of the bones of the ankle and hind/midfoot region (with relative sparing of the distal fibula).. Findings could be secondary to chronic infection and/or Charcot joint. Clinical correlation recommended. Diffuse bilateral soft tissue swelling
[2018-12-13] MEDS: Piperacillin/Tazobact 3.375 GM in Sodium Chloride 100 ML IVPB SCH ×4 (02:42→20:43)
[2018-12-13] MEDS: (Novolin R) Insulin Human Regular 100 units/ml vial SC SCH ×4 (08:14→21:30)
[2018-12-13] MEDS: Enoxaparin 40 mg Syringe SC SCH (09:25)
--- NOTE | 2018-12-13 10:20 | CP.PCM.PN ---
Subjective - Date & Time of Evaluation Date of Evaluation: 12/13/18 Time of Evaluation: 10:20 - Subjective Subjective: Podiatry Consult Note: Dr. Manny Myles 28 year old male patient seen and evaluated for b/l lower extremity wounds. Patient is resting comfortably and in NAD. He states that he is not in any pain today. He reports less drainage to the L ankle ulceration than yesterday. He denies any acute events overnight. Denies N/V/F/SOB/CP. Objective - Vital Signs/Intake and Output Vital Signs (last 24 hours): Temp Pulse Resp BP Pulse Ox 98.8 F 68 20 156/90 H 97 12/13/18 08:09 12/13/18 08:09 12/13/18 08:09 12/13/18 08:09 12/13/18 08:09 Intake and Output: 12/13/18 12/13/18 06:59 18:59 Intake Total 650 550 Output Total 500 600 Balance 150 -50 - Medications Medications: Current Medications Enoxaparin Sodium (Lovenox) 40 mg SC DAILY [facility] Last Admin: 12/13/18 09:25 Dose: 40 mg Piperacillin Sod/Tazobactam (Sod 3.375 gm/ Sodium Chloride) 100 mls @ 200 mls/hr IVPB Q6H [facility]; Protocol Last Admin: 12/13/18 08:11 Dose: 200 mls/hr Vancomycin HCl 1 gm/ Sodium (Chloride) 250 mls @ 166.7 mls/hr IVPB Q24H [facility]; Protocol Last Admin: 12/12/18 11:41 Dose: 166.7 mls/hr Insulin Human Regular (Novolin R) 0 unit SC ACHS [facility]; Protocol Last Admin: 12/13/18 08:14 Dose: 3 unit Ketorolac Tromethamine (Toradol) 30 mg IVP Q6 PRN PRN Reason: Pain, severe (8-10) Last Admin: 12/13/18 03:17 Dose: 30 mg Lisinopril (Zestril) 10 mg PO DAILY [facility] Last Admin: 12/13/18 09:25 Dose: 10 mg - Labs Labs: 12/12/18 08:50 12/12/18 08:50 PT 11.8 SECONDS (9.7-12.2) 12/12/18 08:50 INR 1.1 12/12/18 08:50 APTT 29 SECONDS (21-34) 12/12/18 08:50 - Constitutional Appears: Non-toxic, No Acute Distress - Head Exam Head Exam: ATRAUMATIC, NORMOCEPHALIC - Extremities Exam Additional comments: VASC: DP and PT 2/4, temperature gradient warm to warm to bilateral lower extremity, CFT < 3 seconds, edema noted to the anterior lateral aspect of the left lower extremity ORTHO: MMT is 5/5 in all four compartments, 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 Mild erythema appreciated olegario-wound. RLE ulceration appreciated to the anterior aspect of the right leg measuring approximately 8cm x3cm x.2 cm, with eschar base appreciated, no drainage, no purulence expressed at this time. - Neurological Exam Neurological Exam: Alert, Awake, Oriented x3 - Psychiatric Exam Psychiatric exam: Normal Affect, Normal Mood Assessment and Plan - Assessment and Plan (Free Text) Assessment: 28 year old male patient with b/l lower extremity wounds. Plan: Patient seen and examined with all questions and concerns addressed Discussed plan in detail with attending Dr. Myles Vitals, labs, chart reviewed; afebrile, absent leukocytosis Wound culture L wound taken; Gram - Guzman L ankle and foot xrays ordered; Gram - Guzman Left lower extremity MRI ordered to r/o abscess; pending Local wound care: Betadine, DSD applied to b/l ulcerations Will continue to follow while in house
--- NOTE | 2018-12-13 16:21 | CP.PCM.CON ---
History of Present Illness - History of Present Illness History of Present Illness: 28 year old male with a history of DM I , bilateral chronic wounds, and osteomyelitis presents to the ED via EMS for evaluation of hypoglycemic seizure prior to arrival. He also notes bilateral leg wounds started purulent discharge a few days ago and last wound care visit was 1 week ago. Also c/o cough and congestion but no fever - Medical History PMH: Diabetes (Type 1), Fractures (R shoulder 2014), HTN Denies: Chronic Kidney Disease - [facility] Procedures EXCISION OF L FOOT SUBCU/FASCIA, OPEN APPROACH (09/16/17) FLUOROSCOPY OF SUPERIOR VENA CAVA, GUIDANCE (09/16/17) INSERTION OF INFUSION DEV INTO SUP VENA CAVA, PERC APPROACH (09/16/17) REPLACE L FOOT SKIN W NONAUT SUB, FULL THICK, [employer] (09/16/17) PMHx: DM I, HTN Medications: Insulin Aspart 8 units TID and Insulin Levemir 30 units at night. Lisinopril 5 mg PO daily PSHx: Biopsy L calcaneus for OM Allx: NKDA, NKFA, seasonal allergies FHx: T1DM, HTN Social: neg Review of Systems - Review of Systems All systems: reviewed and no additional remarkable complaints except - Constitutional Constitutional: As Per HPI - EENT Eyes: absent: As Per HPI, Blind Spots, Blurred Vision, Change in Vision, Decreased Night Vision, Diplopia, Discharge, Dry Eye, Exophthalmos, Floaters, Irritation, Itchy Eyes, Loss of Peripheral Vision, Pain, Photophobia, Requires Corrective Lenses, Sees Flashes, Spots in Vision, Tunnel Vision, Other Visual Disturbances, Loss of Vision, Other Nose/Mouth/Throat: absent: As Per HPI, Epistaxis, Nasal Congestion, Nasal Discharge, Nasal Obstruction, Nasal Trauma, Nose Pain, Post Nasal Drip, Sinus Pain, Sinus Pressure, Bleeding Gums, Change in Voice, Dental Pain, Dry Mouth, Dysphagia, Halitosis, Hoarsness, Lip Swelling, Mouth Lesions, Mouth Pain, Odynophagia, Sore Throat, Throat Swelling, Tongue Swelling, Facial Pain, Neck Pain, Neck Mass, Other - Cardiovascular Cardiovascular: absent: As Per HPI, Acrocyanosis, Chest Pain, Chest Pain at Rest, Chest Pain with Activity, Claudication, Diaphoresis, Dyspnea, Dyspnea on Exertion, Edema, Irregular Heart Rhythm, Pain Radiating to Arm/Neck/Jaw, Leg Edema, Leg Ulcers, Lightheadedness, Orthopnea, Palpitations, Paroxysmal Nocturnal Dyspnea, Pedal Edema, Radiating Pain, Rapid Heart Rate, Slow Heart Rate, Syncope, Other - Gastrointestinal Gastrointestinal: absent: As Per HPI, Abdominal Pain, Belching, Bloating, Change in Bowel Habits, Change in Stool Character, Coffee Ground Emesis, Constipation, Cramping, Diarrhea, Dyspepsia, Dysphagia, Early Satiety, Excessive Flatus, Fecal Incontinence, Heartburn, Hematemesis, Hematochezia, Loose Stools, Melena, Nausea, Odynophagia, Temesmus, Vomiting, Other - Genitourinary Genitourinary: absent: As Per HPI, Change in Urinary Stream, Difficulty Urinating, Dysuria, Flank Pain, Hematuria, Pyuria, Nocturia, Urinary Incontinence, Urinary Frequency, Urinary Hesitance, Urinary Urgency, Voiding Freq/Small Amts, Freq UTI, Hx Renal/Bladder Calculi, Hx /Renal Surgery, Bladder Distension, Other - Musculoskeletal Musculoskeletal: As Per HPI - Integumentary Integumentary: As Per HPI - Neurological Neurological: As Per HPI - Psychiatric Psychiatric: absent: As Per HPI, Abnormal Sleep Pattern, Anhedonia, Anxiety, Auditory Hallucinations, Behavioral Changes, Change in Appetite, Change in Libido, Confusion, Depression, Difficulty Concentrating, Hallucinations, Homicidal Ideation, Hopelessness, Irritability, Memory Loss, Mood Swings, Panic Attacks, Paranoia, Suicidal Ideation, Visual Hallucinations, Tactile Hallucinations, Other - Endocrine Endocrine: As Per HPI - Hematologic/Lymphatic Hematologic: absent: As Per HPI, Easy Bleeding, Easy Bruising, Lymphadenopathy, Other Past Patient History - Infectious Disease Hx of Infectious Diseases: None - Tetanus Immunizations Tetanus Immunization: Unknown - Past Medical History & Family History Past Medical History?: Yes - Past Social History Smoking Status: Light Smoker < 10 Cigarettes Daily - CARDIAC Hx Cardiac Disorders: Yes Hx Hypertension: Yes - PULMONARY Hx Respiratory Disorders: No - NEUROLOGICAL Hx Neurological Disorder: No - HEENT Hx HEENT Problems: No - RENAL Hx Chronic Kidney Disease: No - ENDOCRINE/METABOLIC Hx Endocrine Disorders: Yes (SEE COMMENT) Hx Diabetes Mellitus Type 1: Yes - HEMATOLOGICAL/ONCOLOGICAL Hx Blood Disorders: No - INTEGUMENTARY Hx Dermatological Problems: Yes Other/Comment: LEFT LEG - OSTEOMYLITIS - MUSCULOSKELETAL/RHEUMATOLOGICAL Hx Musculoskeletal Disorders: Yes Hx Falls: Yes Hx Fractures: Yes (R shoulder 2014) - GASTROINTESTINAL Hx Gastrointestinal Disorders: No - GENITOURINARY/GYNECOLOGICAL Hx Genitourinary Disorders: No - PSYCHIATRIC Hx Psychophysiologic Disorder: Yes Hx Substance Use: Yes (marijuana user , smokes marijuana on weekends) - SURGICAL HISTORY Hx Surgeries: Yes Other/Comment: Left foot surgery with graft. L foot debridement - ANESTHESIA Hx Anesthesia: Yes Hx Anesthesia Reactions: No Hx Malignant Hyperthermia: No Meds Allergies/Adverse Reactions: Allergies Allergy/AdvReac Type Severity Reaction Status Date / Time pollen extracts Allergy Intermediate ITCHING Verified 12/12/18 08:05 - Medications Medications: Current Medications Enoxaparin Sodium (Lovenox) 40 mg SC DAILY [facility] Last Admin: 12/13/18 09:25 Dose: 40 mg Piperacillin Sod/Tazobactam (Sod 3.375 gm/ Sodium Chloride) 100 mls @ 200 mls/hr IVPB Q6H [facility]; Protocol Last Admin: 12/13/18 14:07 Dose: 200 mls/hr Vancomycin HCl 1 gm/ Sodium (Chloride) 250 mls @ 166.7 mls/hr IVPB Q24H [facility]; Protocol Last Admin: 12/13/18 10:31 Dose: 166.7 mls/hr Insulin Human Regular (Novolin R) 0 unit SC ACHS [facility]; Protocol Last Admin: 12/13/18 11:39 Dose: 4 unit Ketorolac Tromethamine (Toradol) 30 mg IVP Q6 PRN PRN Reason: Pain, severe (8-10) Last Admin: 12/13/18 13:20 Dose: 30 mg Lisinopril (Zestril) 10 mg PO DAILY [facility] Last Admin: 12/13/18 09:25 Dose: 10 mg Physical Exam - Constitutional Appears: Non-toxic, Chronically Ill - Head Exam Head Exam: ATRAUMATIC, NORMAL INSPECTION, NORMOCEPHALIC - Eye Exam Eye Exam: EOMI, PERRL. absent: Scleral icterus - ENT Exam ENT Exam: Mucous Membranes Dry, Normal External Ear Exam, Normal Oropharynx - Neck Exam Neck exam: Negative for: Lymphadenopathy - Respiratory Exam Respiratory Exam: Decreased Breath Sounds, Prolonged Expiratory Phase, Rhonchi - Cardiovascular Exam Cardiovascular Exam: REGULAR RHYTHM, +S1, +S2 - GI/Abdominal Exam GI & Abdominal Exam: Diminished Bowel Sounds, Soft. absent: Tenderness - Rectal Exam Rectal Exam: Deferred - Exam Exam: NORMAL INSPECTION - Extremities Exam Extremities exam: Positive for: tenderness, pedal pulses present. 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 RLE ulceration appreciated to the anterior aspect of the right leg measuring approximately 8cm x3cm x.2 cm, with fibrous base, mild serous drainage, no purulence expressed at this time. Mild erythema appreciated olegario-wound bi - Back Exam Back exam: absent: CVA tenderness (L), CVA tenderness (R) - Neurological Exam Neurological exam: Alert, CN II-XII Intact, Oriented x3, Reflexes Normal - Psychiatric Exam Psychiatric exam: Depressed - Skin Skin Exam: Dry, Intact Results - Vital Signs Recent Vital Signs: Last Vital Signs Temp 98.8 F 12/13/18 08:09 Pulse 68 12/13/18 08:09 Resp 20 12/13/18 08:09 BP 156/90 H 12/13/18 08:09 Pulse Ox 97 12/13/18 08:09 - Labs Result Diagrams: 12/12/18 08:50 12/12/18 08:50 Labs: Laboratory Results - last 24 hr 12/12/18 12/12/18 12/13/18 16:44 20:59 07:23 POC Glucose (mg/dL) 174 H 209 H 272 H 12/13/18 11:21 POC Glucose (mg/dL) 399 H Assessment & Plan (1) Cellulitis, leg Status: Acute (2) Hypoglycemia Status: Acute (3) Pneumonia Status: Acute - Assessment and Plan (Free Text) Assessment: cont wound care and IV antibiotics consider MRI / Bone scan await cultures
[2018-12-13] MEDS ORDERED: (Lantus) Insulin Glargine, Recombinant SC SCH (22:00)
[2018-12-14] MEDS: Piperacillin/Tazobact 3.375 GM in Sodium Chloride 100 ML IVPB SCH ×4 (02:15→20:40)
[2018-12-14] MEDS: (Novolin R) Insulin Human Regular 100 units/ml vial SC SCH ×5 (08:25→21:40)
--- NOTE | 2018-12-14 08:26 | HP ---
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 The patient lives in a group home with no adequate care. The patient presented with hypoglycemia and seizures. PHYSICAL EXAMINATION: GENERAL: The patient is awake and alert. VITAL SIGNS: Temperature 98, pulse is 90, and blood pressure of 120/70. HEENT: Within normal limits. NECK: Supple. CHEST: Symmetrical. HEART: Regular. ABDOMEN: Soft. EXTREMITIES: Bilateral wounds with necrotic flow with very foul smell discharge. ASSESSMENT AND PLAN: The patient suffers diabetic foot infection with abscess and neuropathy, poorly controlled diabetes. intravenous antibiotics. Infectious disease and podiatry consults. Will need a permanent pump placement. Gay Ordaz MD
[2018-12-14] MEDS ORDERED: Aluminum Hydroxide/Magnesium Hydroxide Susp (30 mL) PO ONE (09:00)
[2018-12-14] MEDS: Enoxaparin 40 mg Syringe SC SCH (09:02)
[2018-12-14] MEDS: Pantoprazole 40 mg EC Tab PO SCH (09:02)
--- NOTE | 2018-12-14 09:26 | CP.PCM.PN ---
Subjective - Date & Time of Evaluation Date of Evaluation: 12/14/18 Time of Evaluation: 09: - Subjective Subjective: Progress Note for Dr. Ordaz 28 year old male with history of type I DM, hypertension, and b/l chronic leg wounds presents to the [facility] after having a seizure. Patient has been having difficulty controlling his blood sugar due insurance issues. Patient also reports to have productive coughs for a few days. Since his hospital admission, there were no more report seizure activities. Patient seen and examined at bedside. No acute events overnight. Patient complains of excess coughing and abdominal discomfort. Patient reports of poor quality sleep because of it. He currently denies fever, chills, headache, shortness of breath, nausea, vomiting, or diarrhea. Objective - Vital Signs/Intake and Output Vital Signs (last 24 hours): Temp Pulse Resp BP Pulse Ox 99 F 104 H 20 179/110 H 94 L 12/14/18 00:00 12/14/18 00:00 12/14/18 00:00 12/14/18 07:15 12/14/18 00:00 Intake and Output: 12/14/18 12/14/18 06:59 18:59 Intake Total 950 Output Total 800 Balance 150 - Medications Medications: Current Medications Enoxaparin Sodium (Lovenox) 40 mg SC DAILY [facility] Last Admin: 12/14/18 09:02 Dose: 40 mg Guaifenesin (Robitussin) 100 mg PO Q4H PRN PRN Reason: Cough Piperacillin Sod/Tazobactam (Sod 3.375 gm/ Sodium Chloride) 100 mls @ 200 mls/hr IVPB Q6H [facility]; Protocol Last Admin: 12/14/18 08:26 Dose: 200 mls/hr Vancomycin HCl 1 gm/ Sodium (Chloride) 250 mls @ 166.7 mls/hr IVPB Q24H [facility]; Protocol Last Admin: 12/13/18 10:31 Dose: 166.7 mls/hr Insulin Glargine (Lantus) 20 unit SC HS [facility] Last Admin: 12/13/18 21:30 Dose: 20 units Insulin Human Regular (Novolin R) 0 unit SC ACHS [facility]; Protocol Last Admin: 12/14/18 08:25 Dose: 4 unit Ketorolac Tromethamine (Toradol) 30 mg IVP Q6 PRN PRN Reason: Pain, moderate (4-7) Lisinopril (Zestril) 20 mg PO DAILY [facility] Last Admin: 12/14/18 09:02 Dose: 20 mg Pantoprazole Sodium (Protonix Ec Tab) 40 mg PO DAILY [facility] Last Admin: 12/14/18 09:02 Dose: 40 mg Sodium Hypochlorite (Dakins Solution 0.25%) 0 ml TOP DAILY [facility] - Labs Labs: 12/12/18 08:50 12/12/18 08:50 PT 11.8 SECONDS (9.7-12.2) 12/12/18 08:50 INR 1.1 12/12/18 08:50 APTT 29 SECONDS (21-34) 12/12/18 08:50 - Additional Findings Additional findings: - Constitutional Appears: Non-toxic, No Acute Distress - Head Exam Head Exam: ATRAUMATIC, NORMAL INSPECTION, NORMOCEPHALIC - Eye Exam Eye Exam: EOMI, PERRL. absent: Scleral icterus - ENT Exam ENT Exam: Mucous Membranes Dry, Normal External Ear Exam, Normal Oropharynx - Neck Exam Neck exam: Left neck vascular access. Negative for: Lymphadenopathy - Respiratory Exam Respiratory Exam: Decreased Breath Sounds, Prolonged Expiratory Phase, Rhonchi - Cardiovascular Exam Cardiovascular Exam: REGULAR RHYTHM, +S1, +S2 - GI/Abdominal Exam GI & Abdominal Exam: Diminished Bowel Sounds, Soft. absent: Tenderness - Exam Exam: NORMAL INSPECTION - Extremities Exam Extremities exam: Positive for: B/L lower extremity edema L>R, tenderness, pedal pulses present, wound dressing clean dry and intact. Negative for: calf tenderness - Back Exam Back exam: absent: CVA tenderness (L), CVA tenderness (R) - Neurological Exam Neurological exam: Alert, CN II-XII Intact, Oriented x3, Reflexes Normal - Psychiatric Exam Psychiatric exam: Normal mood - Skin Skin Exam: Dry, Intact Assessment and Plan - Assessment and Plan (Free Text) Assessment: Bilateral leg cellulitis -Wound culture positive for Pseudomonas and E. coli -Zosyn 3.375gm IV Q6 -Vancomycin 1gm IV Q24 -Infectious disease consulted, Dr. Siddiqui -Podiatry consulted, Dr. De La Torre -Foot and ankle xray show destructive changes/resorption of the bones and ankle. -Follow up lower extremity MRI Pneumonia -Afebrile, no leukocytosis -CXR on admission shows diffuse increased interstitial markings with more patchy hazy opacity. Diffused interstitial pneumonia. -Robitussin 100mg Q4h prn -Toradol 30mg IV Q6 prn -Zosyn 3.375gm IV Q6 -Vancomycin 1gm IV Q24 Diabetes -Insulin lantus 20u HS -ISS -CCD -accucheck ACHS -Hypoglycemia protocol HTN -Lisinopril 20mg -EKG show sinus tachycardia at ED Prophylactic measures -Protonix -Lovnenox Case discussed with Dr. Ordaz
[2018-12-14] MEDS: guaiFENesin 100 mg/5 ml Syrup UD PO PRN ×2 (09:27→21:59)
[2018-12-14] MEDS: Dakin's Topical 0.25%-Half Strength (480 ml) TOP SCH (09:37)
--- NOTE | 2018-12-14 11:55 | CARD ---
APPROVED REPORT Date of service: 12/12/2018 EKG Measurement Heart [id number] <Conclusion> Sinus tachycardia Otherwise normal ECG
[2018-12-14 12:14] LABS: BASO # 0.1 K/uL (0.0-0.2); EOS # 0.1 K/uL (0.0-0.7); EOS % 0.9 % (0.0-4.0); HEMOGLOBIN 6.9 g/dL (12.0-18.0); LYMPH # 0.9 K/uL (1.0-4.3); LYMPH % 12.7 % (20.0-40.0); MEAN CELL VOLUME 83.9 fL (80.0-94.0); MEAN CORPUSCULAR HEMOGLOBIN 27.4 pg (27.0-31.0); MEAN CORPUSCULAR HGB CONC 32.6 g/dL (33.0-37.0); MEAN PLATELET VOLUME 8.2 fL (7.2-11.7); MONO # 0.6 K/uL (0.0-0.8); MONO % 8.8 % (0.0-10.0); NEUT # 5.5 K/uL (1.8-7.0); NEUT % 76.6 % (50.0-75.0); NRBC % 0.1 % (0.0-2.0); RBC 2.53 Mil/uL (4.40-5.90); RED CELL DISTRIBUTION WIDTH 16.7 % (11.5-14.5); WHITE BLOOD COUNT 7.1 K/uL (4.8-10.8)
[2018-12-14 12:26] LABS: ALB/GLOB RATIO 0.7 (1.0-2.1); CALCIUM 8.1 mg/dl (8.6-10.4)
--- NOTE | 2018-12-14 14:46 | MRI ---
MRI left foot HISTORY: Infection. COMPARISON: X-ray dated 12/12/2018 TECHNIQUE: Multi-echo multiplanar sequences were performed through the left foot without the use of intravenous contrast. Findings: Prominent reticulation and edema seen within the circumferential subcutaneous soft tissues suggestive for cellulitis with associated infiltration into the visualized musculature suggestive for diffuse myositis. Within the lateral soft tissues, there is a heterogeneous collection within the subcutaneous soft tissues measuring 3.5 x 0.6 centimeters as demonstrated on series 6, image 19 with an additional smaller collection more medially as seen on series 8, image 17 measuring up to 1.1 centimeters extending to some fluid within the midfoot at the level of a laterally displaced distal tibia and talus in relationship to the calcaneus and other bones of the midfoot. This may represent a developing phlegmon and/or abscess collection. Clinical correlation. Extensive signal abnormality seen throughout majority of the osseous structures including distal tibia, distal fibula throughout all of the bones of the mid and hindfoot including the talus, calcaneus, cuboid, navicular, and cuneiform bones demonstrating decreased T1 signal and increased STIR signal suggestive for the sequelae of neuropathic change and/or chronic osteomyelitic changes and or additional etiology. Superimposed acute osteomyelitic changes cannot be excluded on the basis of these images. 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 Cortical deformity of the distal tibia, fibula, anterior and mid calcaneus, cuboid bone, and cuneiform bones suggestive for bony destructive changes. Obliteration of the sinus tarsi. The calcaneus appears to have displaced inferiorly and anteriorly to the level of the sinus tarsi were appears osteoporotic. Fluid and edema at the remnant joint space. Complete obliteration of the deltoid ligament. Lateral displacement of the tibia and talus in relationship to the calcaneus. Fluid and edema seen within the midfoot at the interfaces of the tibia, calcaneus, navicular, and cuboid bone. Fraying and irregularity at the level of the Lisfranc ligament suggestive for prominent partial tearing. Nonspecific reactive edema at the bases of the 1st through 5th metatarsal bones. Clinical correlation. Anterior extensor tendons are preserved. Tortuous course of the medial flexor tendons which otherwise grossly preserved. Moderate tenosynovitis of the peroneal tendons. Tearing of the anterior and posterior tibiofibular ligaments and talofibular ligaments. Marked thickening and fraying of the distal Achilles tendon suggestive for prominent partial tearing. Fraying and irregularity at the level of the plantar fascia. Impression: 1. Prominent reticulation and edema seen within the circumferential subcutaneous soft tissues suggestive for cellulitis with associated infiltration into the visualized musculature suggestive for diffuse myositis. 2. Within the lateral soft tissues, there is a heterogeneous collection within the subcutaneous soft tissues measuring 3.5 x 0.6 centimeters as demonstrated on series 6, image 19 with an additional smaller collection more medially as seen on series 8, image 17 measuring up to 1.1 centimeters extending to some fluid within the midfoot at the level of a laterally displaced distal tibia and talus in relationship to the calcaneus and other bones of the midfoot. This may represent a developing phlegmon and/or abscess collection. Clinical correlation. 3. Extensive signal abnormality seen throughout majority of the osseous structures including distal tibia, distal fibula throughout all of the bones of the mid and hindfoot including the talus, calcaneus, cuboid, navicular, and cuneiform bones demonstrating decreased T1 signal and increased STIR signal suggestive for the sequelae of neuropathic change and/or chronic osteomyelitic changes and or additional etiology. Superimposed acute osteomyelitic changes cannot be excluded on the basis of these images. 4. 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 5. Cortical deformity of the distal tibia, fibula, anterior and mid calcaneus, cuboid bone, and cuneiform bones suggestive for bony destructive changes. 6. Obliteration of the sinus tarsi. The calcaneus appears to have displaced inferiorly and anteriorly to the level of the sinus tarsi were appears osteoporotic. 7. Fluid and edema at the remnant joint space. 8. Complete obliteration of the deltoid ligament. 9. Lateral displacement of the tibia and talus in relationship to the calcaneus. 10. Fluid and edema seen within the midfoot at the interfaces of the tibia, calcaneus, navicular, and cuboid bone. 12. Fraying and irregularity at the level of the Lisfranc ligament suggestive for prominent partial tearing. 13. Nonspecific reactive edema at the bases of the 1st through 5th metatarsal bones. Clinical correlation. Additional findings as above.
--- NOTE | 2018-12-14 15:50 | CP.PCM.PN ---
Subjective - Date & Time of Evaluation Date of Evaluation: 12/14/18 Time of Evaluation: 09:00 - Subjective Subjective: c/o cough congestion and weakness Objective - Vital Signs/Intake and Output Vital Signs (last 24 hours): Temp Pulse Resp BP Pulse Ox 98.2 F 108 H 20 179/110 H 96 12/14/18 15:00 12/14/18 15:00 12/14/18 15:00 12/14/18 07:15 12/14/18 15:00 Intake and Output: 12/14/18 12/14/18 06:59 18:59 Intake Total 950 Output Total 800 Balance 150 - Medications Medications: Current Medications Enoxaparin Sodium (Lovenox) 40 mg SC DAILY [facility] Last Admin: 12/14/18 09:02 Dose: 40 mg Guaifenesin (Robitussin) 100 mg PO Q4H PRN PRN Reason: Cough Last Admin: 12/14/18 09:27 Dose: 100 mg Piperacillin Sod/Tazobactam (Sod 3.375 gm/ Sodium Chloride) 100 mls @ 200 mls/hr IVPB Q6H [facility]; Protocol Last Admin: 12/14/18 14:08 Dose: 200 mls/hr Vancomycin HCl 1 gm/ Sodium (Chloride) 250 mls @ 166.7 mls/hr IVPB Q24H [facility]; Protocol Last Admin: 12/14/18 10:21 Dose: 166.7 mls/hr Insulin Glargine (Lantus) 20 unit SC [facility] Last Admin: 12/13/18 21:30 Dose: 20 units Insulin Human Regular (Novolin R) 0 unit SC ACHS [facility]; Protocol Last Admin: 12/14/18 14:07 Dose: 5 unit Ketorolac Tromethamine (Toradol) 30 mg IVP Q6 PRN PRN Reason: Pain, moderate (4-7) Last Admin: 12/14/18 15:15 Dose: 30 mg Lisinopril (Zestril) 20 mg PO DAILY [facility] Last Admin: 12/14/18 09:02 Dose: 20 mg Pantoprazole Sodium (Protonix Ec Tab) 40 mg PO DAILY [facility] Last Admin: 12/14/18 09:02 Dose: 40 mg Sodium Hypochlorite (Dakins Solution 0.25%) 0 ml TOP DAILY [facility] Last Admin: 12/14/18 09:37 Dose: 1 applic - Labs Labs: 12/14/18 11:30 12/14/18 11:30 PT 11.8 SECONDS (9.7-12.2) 12/12/18 08:50 INR 1.1 12/12/18 08:50 APTT 29 SECONDS (21-34) 12/12/18 08:50 - Constitutional Appears: Non-toxic - Head Exam Head Exam: NORMOCEPHALIC - Eye Exam Eye Exam: absent: Scleral icterus - ENT Exam ENT Exam: Mucous Membranes Dry - Neck Exam Neck Exam: absent: Lymphadenopathy - Respiratory Exam Respiratory Exam: Decreased Breath Sounds, Clear to Ausculation Bilateral - Cardiovascular Exam Cardiovascular Exam: REGULAR RHYTHM, +S1, +S2 - GI/Abdominal Exam GI & Abdominal Exam: Distended, Soft. absent: Tenderness - Rectal Exam Rectal Exam: Deferred - Exam Exam: NORMAL INSPECTION - Extremities Exam Extremities Exam: Pedal Edema. absent: Calf Tenderness Additional comments: VASC: DP and PT 2/4, temperature gradient warm to warm to bilateral lower extremity, CFT < 3 seconds, edema noted to the anterior lateral aspect of the left lower extremity ORTHO: MMT is 5/5 in all four compartments, 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 Mild erythema appreciated olegario-wound. RLE ulceration appreciated to the anterior aspect of the right leg measuring approximately 8cm x3cm x.2 cm, with eschar base appreciated, no drainage, no purulence expressed at this time. - Back Exam Back Exam: absent: CVA tenderness (L), CVA tenderness (R) - Neurological Exam Neurological Exam: Alert, Awake, Oriented x3 - Psychiatric Exam Psychiatric exam: Depressed - Skin Skin Exam: Dry Assessment and Plan (1) Cellulitis, leg Status: Acute (2) Hypoglycemia Status: Acute (3) Pneumonia Status: Acute - Assessment and Plan (Free Text) Assessment: MRI reviewed ? developing phlegmon left foot IV rx renewed cultures reviewed cont IV antibiotics discussed with Dr Ordaz
[2018-12-14] MEDS ORDERED: Dextrose 50% SYRINGE Inj (50 ml) IV PRN (16:02)
[2018-12-14] MEDS ORDERED: Glucagon Recombinant 1 mg Inj IM PRN (16:02)
[2018-12-14] MEDS ORDERED: (Lantus) Insulin Glargine, Recombinant SC SCH (16:30)
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
[2018-12-14] MEDS ORDERED: Labetalol 5mg/ml (4ml) IVP STA (23:50)
[2018-12-15] MEDS: Piperacillin/Tazobact 3.375 GM in Sodium Chloride 100 ML IVPB SCH ×2 (02:34→08:49)
[2018-12-15 07:02] LABS: BASO # 0.1 K/uL (0.0-0.2); EOS # 0.1 K/uL (0.0-0.7); EOS % 1.5 % (0.0-4.0); HEMOGLOBIN 6.7 g/dL (12.0-18.0); LYMPH # 0.9 K/uL (1.0-4.3); LYMPH % 16.6 % (20.0-40.0); MEAN CELL VOLUME 83.3 fL (80.0-94.0); MEAN CORPUSCULAR HEMOGLOBIN 26.6 pg (27.0-31.0); MEAN PLATELET VOLUME 7.9 fL (7.2-11.7); MONO # 0.6 K/uL (0.0-0.8); MONO % 10.6 % (0.0-10.0); NEUT # 3.7 K/uL (1.8-7.0); NEUT % 70.3 % (50.0-75.0); NRBC % 0.1 % (0.0-2.0); RBC 2.52 Mil/uL (4.40-5.90); WHITE BLOOD COUNT 5.3 K/uL (4.8-10.8)
[2018-12-15 08:27] LABS: ALB/GLOB RATIO 0.7 (1.0-2.1); CALCIUM 8.1 mg/dl (8.6-10.4)
[2018-12-15] MEDS: guaiFENesin 100 mg/5 ml Syrup UD PO PRN ×2 (08:49→21:08)
[2018-12-15] MEDS: (Novolin R) Insulin Human Regular 100 units/ml vial SC SCH ×4 (08:51→22:00)
[2018-12-15] MEDS: Enoxaparin 40 mg Syringe SC SCH (09:34)
[2018-12-15] MEDS: Pantoprazole 40 mg EC Tab PO SCH (09:35)
[2018-12-15] MEDS: Dakin's Topical 0.25%-Half Strength (480 ml) TOP SCH (09:36)
--- NOTE | 2018-12-15 09:39 | CP.PCM.PN ---
Subjective - Date & Time of Evaluation Date of Evaluation: 12/15/18 Time of Evaluation: 09:39 - Subjective Subjective: Progress Note for Dr. Oradz Patient seen and examined at bedside this morning. Nursing reports of patient having high blood glucose despite of increased night time insulin. Patient reports his coughing is improving. He complains of leg pain. He currently denies fever, chills, headache, shortness of breath, nausea, vomiting, or diarrhea. Objective - Vital Signs/Intake and Output Vital Signs (last 24 hours): Temp Pulse Resp BP Pulse Ox 99 F 100 H 20 175/98 H 97 12/15/18 08:00 12/15/18 08:00 12/15/18 08:00 12/15/18 08:00 12/15/18 08:00 Intake and Output: 12/15/18 12/15/18 06:59 18:59 Intake Total 800 Output Total 850 Balance -50 - Medications Medications: Current Medications Dextrose (Dextrose 50% Inj) 0 ml IV STAT PRN; Protocol PRN Reason: Hypoglycemia Protocol Dextrose (Glutose 15) 0 gm PO ONCE PRN; Protocol PRN Reason: Hypoglycemia Protocol Enoxaparin Sodium (Lovenox) 40 mg SC DAILY [facility] Last Admin: 12/15/18 09:34 Dose: 40 mg Glucagon (Glucagen Diagnostic Kit) 0 mg IM STAT PRN; Protocol PRN Reason: Hypoglycemia Protocol Guaifenesin (Robitussin) 100 mg PO Q4H PRN PRN Reason: Cough Last Admin: 12/15/18 08:49 Dose: 100 mg Vancomycin HCl 1 gm/ Sodium (Chloride) 250 mls @ 166.7 mls/hr IVPB Q24H [facility]; Protocol Last Admin: 12/15/18 09:30 Dose: 166.7 mls/hr Dextrose (Dextrose 5% In Water 1000 Ml) 1,000 mls @ 0 mls/hr IV .Q0M PRN; Protocol PRN Reason: Hypoglycemia Protocol Insulin Glargine (Lantus) 22 unit SC HS [facility] Last Admin: 12/14/18 21:39 Dose: 22 units Insulin Human Regular (Novolin R) 0 unit SC ACHS [facility]; Protocol Ketorolac Tromethamine (Toradol) 30 mg IVP Q6 PRN PRN Reason: Pain, moderate (4-7) Last Admin: 12/14/18 21:28 Dose: 30 mg Lisinopril (Zestril) 20 mg PO DAILY [facility] Last Admin: 12/15/18 09:34 Dose: 20 mg Pantoprazole Sodium (Protonix Ec Tab) 40 mg PO DAILY [facility] Last Admin: 12/15/18 09:35 Dose: 40 mg Sodium Hypochlorite (Dakins Solution 0.25%) 0 ml TOP DAILY [facility] Last Admin: 12/15/18 09:36 Dose: Not Given - Labs Labs: 12/15/18 06:53 12/15/18 06:53 PT 11.8 SECONDS (9.7-12.2) 12/12/18 08:50 INR 1.1 12/12/18 08:50 APTT 29 SECONDS (21-34) 12/12/18 08:50 - Additional Findings Additional findings: - Constitutional Appears: Non-toxic, No Acute Distress - Head Exam Head Exam: ATRAUMATIC, NORMAL INSPECTION, NORMOCEPHALIC - Eye Exam Eye Exam: EOMI, PERRL. absent: Scleral icterus - ENT Exam ENT Exam: Mucous Membranes Dry, Normal External Ear Exam, Normal Oropharynx - Neck Exam Neck exam: Left neck vascular access. Negative for: Lymphadenopathy - Respiratory Exam Respiratory Exam: Decreased Breath Sounds, Prolonged Expiratory Phase, Rhonchi - Cardiovascular Exam Cardiovascular Exam: REGULAR RHYTHM, +S1, +S2 - GI/Abdominal Exam GI & Abdominal Exam: Diminished Bowel Sounds, Soft. absent: Tenderness - Exam Exam: NORMAL INSPECTION - Extremities Exam Extremities exam: Positive for: B/L lower extremity edema L>R, tenderness, pedal pulses present, wound dressing clean dry and intact. Negative for: calf ten derness - Back Exam Back exam: absent: CVA tenderness (L), CVA tenderness (R) - Neurological Exam Neurological exam: Alert, CN II-XII Intact, Oriented x3, Reflexes Normal - Psychiatric Exam Psychiatric exam: Normal mood - Skin Skin Exam: Dry, Intact Assessment and Plan - Assessment and Plan (Free Text) Assessment: Anemia -Hgb 6.8 today -No reported active bleeding from LE wounds -Two units PRBC ordered -Follow up CBC, serum protein electrophoresis -Follow up occult blood stool Bilateral leg cellulitis -Wound culture positive for Pseudomonas and E. coli -Zosyn 3.375gm IV Q6 -Vancomycin 1gm IV Q24 -Infectious disease consulted, Dr. Siddiqui -Foot and ankle xray shows destructive changes/resorption of the bones and ankle. -Lower extremity MRI reveals fluid collection consistent with abscess in lateral soft tissue of Left foot -Podiatry consulted, Dr. Myles Pneumonia -Afebrile, no leukocytosis -CXR on admission shows diffuse increased interstitial markings with more patchy hazy opacity. Diffused interstitial pneumonia. -Robitussin 100mg Q4h prn -Toradol 30mg IV Q6 prn -Zosyn 3.375gm IV Q6 -Vancomycin 1gm IV Q24 Diabetes -Insulin lantus increased 30u HS -ISS -CCD -accucheck ACHS -Hypoglycemia protocol HTN -Lisinopril increased to 40mg -EKG show sinus tachycardia at ED Prophylactic measures -Protonix -Lovnenox Case discussed with Dr. Ordaz
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
[2018-12-15] MEDS: Cefepime IV 1 gm in Dextrose 1 GM/50 ML BAG IVPB SCH (14:14)
[2018-12-15] MEDS: (Lantus) Insulin Glargine, Recombinant SC SCH (21:59)
[2018-12-16] MEDS: Cefepime IV 1 gm in Dextrose 1 GM/50 ML BAG IVPB SCH ×2 (00:56→12:44)
[2018-12-16 06:27] LABS: BASO # 0.1 K/uL (0.0-0.2); EOS # 0.1 K/uL (0.0-0.7); EOS % 1.2 % (0.0-4.0); HEMOGLOBIN 7.4 g/dL (12.0-18.0); LYMPH # 1.2 K/uL (1.0-4.3); LYMPH % 20.6 % (20.0-40.0); MEAN CELL VOLUME 85.1 fL (80.0-94.0); MEAN CORPUSCULAR HEMOGLOBIN 27.4 pg (27.0-31.0); MEAN CORPUSCULAR HGB CONC 32.2 g/dL (33.0-37.0); MEAN PLATELET VOLUME 7.8 fL (7.2-11.7); MONO # 0.7 K/uL (0.0-0.8); MONO % 11.7 % (0.0-10.0); NEUT # 3.8 K/uL (1.8-7.0); NEUT % 65.5 % (50.0-75.0); NRBC % 0.4 % (0.0-2.0); RBC 2.71 Mil/uL (4.40-5.90); RED CELL DISTRIBUTION WIDTH 16.4 % (11.5-14.5); WHITE BLOOD COUNT 5.7 K/uL (4.8-10.8)
[2018-12-16 07:00] LABS: ALB/GLOB RATIO 0.7 (1.0-2.1); CALCIUM 8.4 mg/dl (8.6-10.4)
[2018-12-16] MEDS: (Novolin R) Insulin Human Regular 100 units/ml vial SC SCH ×3 (07:50→17:14)
[2018-12-16] MEDS: guaiFENesin 100 mg/5 ml Syrup UD PO PRN (09:10)
[2018-12-16] MEDS: Enoxaparin 40 mg Syringe SC SCH (09:11)
[2018-12-16] MEDS: Pantoprazole 40 mg EC Tab PO SCH (09:11)
--- NOTE | 2018-12-16 09:50 | CP.PCM.PN ---
Subjective - Date & Time of Evaluation Date of Evaluation: 12/16/18 Time of Evaluation: 09:50 - Subjective Subjective: PGY2 Medicine Note for Dr. Ordaz Patient seen and examined this morning at bedside. Patient was transfused one unit of pRBCs overnight and is pending an additional one unit. The additional unit has been on hold due to elevated BP. Patient's BP meds were increased yesterday. Patient is frustrated and tired but states he is feeling slightly better today, compared to yesterday. He denies fevers, chills, nausea, vomiting, diarrhea, constipation, chest pain or shortness of breath. Objective - Vital Signs/Intake and Output Vital Signs (last 24 hours): Temp Pulse Resp BP Pulse Ox 98.2 F 106 H 20 179/113 H 95 12/16/18 07:39 12/16/18 07:39 12/16/18 07:39 12/16/18 07:39 12/16/18 07:39 Intake and Output: 12/16/18 12/16/18 06:59 18:59 Intake Total 1300 Output Total 1800 Balance -500 - Medications Medications: Current Medications Acetaminophen (Tylenol 325mg Tab) 650 mg PO Q6 PRN PRN Reason: Fever >100.4 F Last Admin: 12/16/18 09:10 Dose: 650 mg Amlodipine Besylate (Norvasc) 10 mg PO DAILY [facility] Last Admin: 12/16/18 09:10 Dose: 10 mg Dextrose (Dextrose 50% Inj) 0 ml IV STAT PRN; Protocol PRN Reason: Hypoglycemia Protocol Dextrose (Glutose 15) 0 gm PO ONCE PRN; Protocol PRN Reason: Hypoglycemia Protocol Diphenhydramine HCl (Benadryl) 25 mg PO Q6 PRN PRN Reason: Allergy symptoms Last Admin: 12/16/18 09:10 Dose: 25 mg Enoxaparin Sodium (Lovenox) 40 mg SC DAILY [facility] Last Admin: 12/16/18 09:11 Dose: 40 mg Glucagon (Glucagen Diagnostic Kit) 0 mg IM STAT PRN; Protocol PRN Reason: Hypoglycemia Protocol Guaifenesin (Robitussin) 100 mg PO Q4H PRN PRN Reason: Cough Last Admin: 12/16/18 09:10 Dose: 100 mg Vancomycin HCl 1 gm/ Sodium (Chloride) 250 mls @ 166.7 mls/hr IVPB Q24H [facility]; Protocol Last Admin: 12/15/18 12:33 Dose: Not Given Dextrose (Dextrose 5% In Water 1000 Ml) 1,000 mls @ 0 mls/hr IV .Q0M PRN; Protocol PRN Reason: Hypoglycemia Protocol Cefepime HCl (Maxipime Iv 1 Gm Premix) 1 gm in 50 mls @ 100 mls/hr IVPB Q12H [facility]; Protocol Last Admin: 12/16/18 00:56 Dose: 100 mls/hr Insulin Glargine (Lantus) 30 unit SC HS [facility] Last Admin: 12/15/18 21:59 Dose: 30 units Insulin Human Regular (Novolin R) 0 unit SC ACHS [facility]; Protocol Last Admin: 12/16/18 07:50 Dose: 6 units Ketorolac Tromethamine (Toradol) 30 mg IVP Q6 PRN PRN Reason: Pain, moderate (4-7) Last Admin: 12/15/18 21:08 Dose: 30 mg Lisinopril (Zestril) 40 mg PO DAILY [facility] Last Admin: 12/16/18 09:10 Dose: 40 mg Pantoprazole Sodium (Protonix Ec Tab) 40 mg PO DAILY [facility] Last Admin: 12/16/18 09:11 Dose: 40 mg Sodium Hypochlorite (Dakins Solution 0.25%) 0 ml TOP DAILY [facility] Last Admin: 12/15/18 09:36 Dose: Not Given - Labs Labs: 12/16/18 06:20 12/16/18 06:20 PT 11.8 SECONDS (9.7-12.2) 12/12/18 08:50 INR 1.1 12/12/18 08:50 APTT 29 SECONDS (21-34) 12/12/18 08:50 - Constitutional Appears: Non-toxic, No Acute Distress - Head Exam Head Exam: ATRAUMATIC, NORMOCEPHALIC - Eye Exam Eye Exam: Normal appearance. absent: Scleral icterus - ENT Exam ENT Exam: Mucous Membranes Dry - Neck Exam Neck Exam: absent: Lymphadenopathy - Respiratory Exam Respiratory Exam: Decreased Breath Sounds. absent: Accessory Muscle Use, Rhonchi, Wheezes, Respiratory Distress - Cardiovascular Exam Cardiovascular Exam: REGULAR RHYTHM, +S1, +S2 - GI/Abdominal Exam GI & Abdominal Exam: Soft. absent: Distended, Firm, Guarding, Rigid, Tenderness - Extremities Exam Extremities Exam: Pedal Edema (L>R), Tenderness. absent: Calf Tenderness Additional comments: dressing in place c/d/i - Neurological Exam Neurological Exam: Alert, Awake, Oriented x3 - Psychiatric Exam Psychiatric exam: Normal Affect, Normal Mood - Skin Skin Exam: Dry, Warm Assessment and Plan - Assessment and Plan (Free Text) Plan: Anemia -Hgb 7.4 today (was 6.7 yesterday) -No reported active bleeding from LE wounds -Two units PRBC ordered on 12/15 * only received 1 unit of pRBC due to elevated BP * pending second unit once BP normalizes -Follow up CBC, serum protein electrophoresis -Follow up occult blood stool Bilateral leg cellulitis -Infectious disease consulted, Dr. Siddiqui -Podiatry consulted, Dr. Myles -Foot and ankle xray shows destructive changes/resorption of the bones and ankle. -Lower extremity MRI reveals fluid collection consistent with abscess in lateral soft tissue of Left foot -Wound culture (12/12) positive for Pseudomonas (right leg) and E. coli (left ankle) -Blood culture (12/12) negative at 4 days -Zosyn 3.375gm IV Q6 - discontinued -Vancomycin 1gm IV Q24 - discontinued -Started on Cefepime 1gm IVPB q12h (started on 12/15) Pneumonia -Afebrile, no leukocytosis -CXR on admission shows diffuse increased interstitial markings with more patchy hazy opacity. Diffused interstitial pneumonia. -Robitussin 100mg Q4h prn -Zosyn 3.375gm IV Q6 - discontinued -Vancomycin 1gm IV Q24 - discontinued -Started on Cefepime 1gm IVPB q12h (started on 12/15) Diabetes -Insulin Lantus 30u HS -ISS -[facility]D -accucheck ACHS -Hypoglycemia protocol Hypertension -Lisinopril 40mg PO daily -Amlodipine 10mg PO daily -Started on Clonidine 0.1mg PO BID -EKG show sinus tachycardia at ED Prophylactic measures -Protonix -Lovnenox Case discussed with Dr. Sushma Diaz [place] PGY2
[2018-12-16] MEDS: Dakin's Topical 0.25%-Half Strength (480 ml) TOP SCH (11:19)
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
--- NOTE | 2018-12-16 19:21 | CP.PCM.PN ---
Subjective - Date & Time of Evaluation Date of Evaluation: 12/16/18 Time of Evaluation: 09:00 - Subjective Subjective: events noted wound c/s + pseudomonas / ecoli Objective - Vital Signs/Intake and Output Vital Signs (last 24 hours): Temp Pulse Resp BP Pulse Ox 97.8 F 100 H 20 147/90 96 12/16/18 18:59 12/16/18 18:59 12/16/18 18:59 12/16/18 18:59 12/16/18 16:11 Intake and Output: 12/16/18 12/17/18 18:59 06:59 Intake Total 0 Balance 0 - Medications Medications: Current Medications Acetaminophen (Tylenol 325mg Tab) 650 mg PO Q6 PRN PRN Reason: Fever >100.4 F Last Admin: 12/16/18 09:10 Dose: 650 mg Amlodipine Besylate (Norvasc) 10 mg PO DAILY [facility] Last Admin: 12/16/18 09:10 Dose: 10 mg Clonidine HCl (Catapres) 0.1 mg PO BID [facility] Last Admin: 12/16/18 17:14 Dose: 0.1 mg Dextrose (Dextrose 50% Inj) 0 ml IV STAT PRN; Protocol PRN Reason: Hypoglycemia Protocol Dextrose (Glutose 15) 0 gm PO ONCE PRN; Protocol PRN Reason: Hypoglycemia Protocol Diphenhydramine HCl (Benadryl) 25 mg PO Q6 PRN PRN Reason: Allergy symptoms Last Admin: 12/16/18 09:10 Dose: 25 mg Enoxaparin Sodium (Lovenox) 40 mg SC DAILY [facility] Last Admin: 12/16/18 09:11 Dose: 40 mg Glucagon (Glucagen Diagnostic Kit) 0 mg IM STAT PRN; Protocol PRN Reason: Hypoglycemia Protocol Guaifenesin (Robitussin) 100 mg PO Q4H PRN PRN Reason: Cough Last Admin: 12/16/18 09:10 Dose: 100 mg Vancomycin HCl 1 gm/ Sodium (Chloride) 250 mls @ 166.7 mls/hr IVPB Q24H [facility]; Protocol Last Admin: 12/16/18 11:05 Dose: 166.7 mls/hr Dextrose (Dextrose 5% In Water 1000 Ml) 1,000 mls @ 0 mls/hr IV .Q0M PRN; Protocol PRN Reason: Hypoglycemia Protocol Cefepime HCl (Maxipime Iv 1 Gm Premix) 1 gm in 50 mls @ 100 mls/hr IVPB Q12H [facility]; Protocol Last Admin: 12/16/18 12:44 Dose: 100 mls/hr Insulin Glargine (Lantus) 30 unit SC HS [facility] Last Admin: 12/15/18 21:59 Dose: 30 units Insulin Human Regular (Novolin R) 0 unit SC ACHS [facility]; Protocol Last Admin: 12/16/18 17:14 Dose: 4 units Ketorolac Tromethamine (Toradol) 30 mg IVP Q6 PRN PRN Reason: Pain, moderate (4-7) Last Admin: 12/16/18 16:09 Dose: 30 mg Lisinopril (Zestril) 40 mg PO DAILY [facility] Last Admin: 12/16/18 09:10 Dose: 40 mg Pantoprazole Sodium (Protonix Ec Tab) 40 mg PO DAILY [facility] Last Admin: 12/16/18 09:11 Dose: 40 mg Sodium Hypochlorite (Dakins Solution 0.25%) 0 ml TOP DAILY [facility] Last Admin: 12/16/18 11:19 Dose: Not Given - Labs Labs: 12/16/18 06:20 12/16/18 06:20 PT 11.8 SECONDS (9.7-12.2) 12/12/18 08:50 INR 1.1 12/12/18 08:50 APTT 29 SECONDS (21-34) 12/12/18 08:50 - Constitutional Appears: Chronically Ill - Head Exam Head Exam: NORMOCEPHALIC - Eye Exam Eye Exam: absent: Scleral icterus - ENT Exam ENT Exam: Mucous Membranes Dry - Neck Exam Neck Exam: absent: Lymphadenopathy - Respiratory Exam Respiratory Exam: Decreased Breath Sounds - Cardiovascular Exam Cardiovascular Exam: REGULAR RHYTHM, +S1, +S2 - GI/Abdominal Exam GI & Abdominal Exam: Distended, Soft - Rectal Exam Rectal Exam: Deferred - Exam Exam: NORMAL INSPECTION - Extremities Exam Extremities Exam: Pedal Edema - Back Exam Back Exam: absent: CVA tenderness (R), NORMAL INSPECTION - Neurological Exam Neurological Exam: Alert Assessment and Plan (1) Cellulitis, leg Status: Acute (2) Hypoglycemia Status: Acute (3) Pneumonia Status: Acute - Assessment and Plan (Free Text) Assessment: cont iv antibiotics podiatry eval in progress
[2018-12-16] MEDS: (Lantus) Insulin Glargine, Recombinant SC SCH (22:19)
[2018-12-17] MEDS: guaiFENesin 100 mg/5 ml Syrup UD PO PRN (00:23)
[2018-12-17] MEDS: Cefepime IV 1 gm in Dextrose 1 GM/50 ML BAG IVPB SCH ×2 (00:47→12:15)
[2018-12-17] MEDS: (Novolin R) Insulin Human Regular 100 units/ml vial SC SCH ×3 (08:08→18:39)
[2018-12-17 08:14] LABS: BASO % 0.8 % (0.0-2.0); EOS # 0.1 K/uL (0.0-0.7); EOS % 1.5 % (0.0-4.0); HEMOGLOBIN 8.8 g/dL (12.0-18.0); LYMPH # 1.1 K/uL (1.0-4.3); LYMPH % 18.5 % (20.0-40.0); MEAN CELL VOLUME 85.2 fL (80.0-94.0); MEAN CORPUSCULAR HEMOGLOBIN 27.4 pg (27.0-31.0); MEAN CORPUSCULAR HGB CONC 32.2 g/dL (33.0-37.0); MEAN PLATELET VOLUME 7.9 fL (7.2-11.7); MONO # 0.6 K/uL (0.0-0.8); NEUT # 4.1 K/uL (1.8-7.0); NEUT % 69.2 % (50.0-75.0); NRBC % 0.2 % (0.0-2.0); RBC 3.21 Mil/uL (4.40-5.90); RED CELL DISTRIBUTION WIDTH 16.8 % (11.5-14.5)
[2018-12-17 08:28] LABS: ALB/GLOB RATIO 0.7 (1.0-2.1); ALBUMIN 3.2 g/dL (3.5-5.0); CALCIUM 8.6 mg/dl (8.6-10.4)
[2018-12-17] MEDS: Pantoprazole 40 mg EC Tab PO SCH (09:36)
[2018-12-17] MEDS: Enoxaparin 40 mg Syringe SC SCH (09:37)
[2018-12-17] MEDS: Dakin's Topical 0.25%-Half Strength (480 ml) TOP SCH (09:38)
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
[2018-12-17] MEDS: (Lantus) Insulin Glargine, Recombinant SC SCH (22:24)
[2018-12-18] MEDS: Cefepime IV 1 gm in Dextrose 1 GM/50 ML BAG IVPB SCH ×2 (00:08→12:13)
[2018-12-18] MEDS: guaiFENesin 100 mg/5 ml Syrup UD PO PRN ×2 (00:52→20:12)
[2018-12-18] MEDS: (Novolin R) Insulin Human Regular 100 units/ml vial SC SCH ×4 (07:59→21:41)
[2018-12-18 08:08] LABS: BASO % 0.7 % (0.0-2.0); EOS # 0.1 K/uL (0.0-0.7); EOS % 1.6 % (0.0-4.0); HEMOGLOBIN 8.2 g/dL (12.0-18.0); LYMPH # 1.1 K/uL (1.0-4.3); LYMPH % 17.9 % (20.0-40.0); MEAN CELL VOLUME 85.4 fL (80.0-94.0); MEAN CORPUSCULAR HGB CONC 32.8 g/dL (33.0-37.0); MEAN PLATELET VOLUME 7.8 fL (7.2-11.7); MONO # 0.7 K/uL (0.0-0.8); MONO % 10.7 % (0.0-10.0); NEUT # 4.3 K/uL (1.8-7.0); NEUT % 69.1 % (50.0-75.0); NRBC % 0.1 % (0.0-2.0); RBC 2.95 Mil/uL (4.40-5.90); RED CELL DISTRIBUTION WIDTH 16.2 % (11.5-14.5); WHITE BLOOD COUNT 6.2 K/uL (4.8-10.8)
[2018-12-18 08:25] LABS: ALB/GLOB RATIO 0.7 (1.0-2.1); CALCIUM 8.5 mg/dl (8.6-10.4)
[2018-12-18] MEDS: Pantoprazole 40 mg EC Tab PO SCH (09:37)
[2018-12-18] MEDS: Enoxaparin 40 mg Syringe SC SCH (09:37)
[2018-12-18] MEDS: Dakin's Topical 0.25%-Half Strength (480 ml) TOP SCH (09:38)
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
[2018-12-18] MEDS ORDERED: Aluminum Hydroxide/Magnesium Hydroxide Susp (30 mL) PO PRN (11:40)
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
[2018-12-18] MEDS: Saccharomyces Boulardi 250 mg Cap PO SCH (17:34)
--- NOTE | 2018-12-18 19:32 | CP.PCM.PN ---
Subjective - Date & Time of Evaluation Date of Evaluation: 12/18/18 Time of Evaluation: 09:00 - Subjective Subjective: events noted slow progress denies fever IV rx renewed Objective - Vital Signs/Intake and Output Vital Signs (last 24 hours): Temp Pulse Resp BP Pulse Ox 97.9 F 90 20 154/103 H 95 12/18/18 16:00 12/18/18 16:00 12/18/18 16:00 12/18/18 16:00 12/18/18 16:00 Intake and Output: 12/18/18 12/19/18 18:59 06:59 Intake Total 480 Balance 480 - Medications Medications: Current Medications Acetaminophen (Tylenol 325mg Tab) 650 mg PO Q6 PRN PRN Reason: Fever >100.4 F Last Admin: 12/16/18 09:10 Dose: 650 mg Al Hydrox/Mg Hydrox/Simethicone (Maalox 30 Ml) 30 ml PO TID PRN PRN Reason: Indigestion / Heartburn Amlodipine Besylate (Norvasc) 10 mg PO DAILY [facility] Last Admin: 12/18/18 09:37 Dose: 10 mg Clonidine HCl (Catapres) 0.1 mg PO BID [facility] Last Admin: 12/18/18 17:35 Dose: 0.1 mg Dextrose (Dextrose 50% Inj) 0 ml IV STAT PRN; Protocol PRN Reason: Hypoglycemia Protocol Dextrose (Glutose 15) 0 gm PO ONCE PRN; Protocol PRN Reason: Hypoglycemia Protocol Diphenhydramine HCl (Benadryl) 25 mg PO Q6 PRN PRN Reason: Allergy symptoms Last Admin: 12/18/18 00:52 Dose: 25 mg Enoxaparin Sodium (Lovenox) 40 mg SC DAILY [facility] Last Admin: 12/18/18 09:37 Dose: 40 mg Glucagon (Glucagen Diagnostic Kit) 0 mg IM STAT PRN; Protocol PRN Reason: Hypoglycemia Protocol Guaifenesin (Robitussin) 100 mg PO Q4H PRN PRN Reason: Cough Last Admin: 12/18/18 00:52 Dose: 100 mg Vancomycin HCl 1 gm/ Sodium (Chloride) 250 mls @ 166.7 mls/hr IVPB Q24H [facility]; Protocol Last Admin: 12/18/18 11:02 Dose: 166.7 mls/hr Dextrose (Dextrose 5% In Water 1000 Ml) 1,000 mls @ 0 mls/hr IV .Q0M PRN; Protocol PRN Reason: Hypoglycemia Protocol Cefepime HCl (Maxipime Iv 1 Gm Premix) 1 gm in 50 mls @ 100 mls/hr IVPB Q12H [facility]; Protocol Last Admin: 12/18/18 12:13 Dose: 100 mls/hr Insulin Glargine (Lantus) 30 unit SC HS [facility] Last Admin: 12/17/18 22:24 Dose: 30 units Insulin Human Regular (Novolin R) 0 unit SC ACHS [facility]; Protocol Last Admin: 12/18/18 17:32 Dose: 2 units Ketorolac Tromethamine (Toradol) 30 mg IVP Q6 PRN PRN Reason: Pain, moderate (4-7) Last Admin: 12/17/18 22:27 Dose: 30 mg Lisinopril (Zestril) 40 mg PO DAILY [facility] Last Admin: 12/18/18 09:37 Dose: 40 mg Metoprolol Tartrate (Lopressor) 50 mg PO BID [facility] Last Admin: 12/18/18 17:35 Dose: 50 mg Pantoprazole Sodium (Protonix Ec Tab) 40 mg PO DAILY [facility] Last Admin: 12/18/18 09:37 Dose: 40 mg Saccharomyces Boulardii (Florastor) 250 mg PO BID [facility] Last Admin: 12/18/18 17:34 Dose: 250 mg Sodium Hypochlorite (Dakins Solution 0.25%) 0 ml TOP DAILY [facility] Last Admin: 12/18/18 09:38 Dose: 1 applic - Labs Labs: 12/18/18 07:51 12/18/18 07:51 PT 11.8 SECONDS (9.7-12.2) 12/12/18 08:50 INR 1.1 12/12/18 08:50 APTT 29 SECONDS (21-34) 12/12/18 08:50 - Constitutional Appears: Well - Head Exam Head Exam: ATRAUMATIC, NORMAL INSPECTION, NORMOCEPHALIC - Eye Exam Eye Exam: EOMI, Normal appearance, PERRL Pupil Exam: NORMAL ACCOMODATION, PERRL - ENT Exam ENT Exam: Mucous Membranes Moist, Normal Exam - Neck Exam Neck Exam: Full ROM, Normal Inspection. absent: Lymphadenopathy - Respiratory Exam Respiratory Exam: Clear to Ausculation Bilateral, NORMAL BREATHING PATTERN - Cardiovascular Exam Cardiovascular Exam: REGULAR RHYTHM, +S1, +S2. absent: Murmur - GI/Abdominal Exam GI & Abdominal Exam: Soft, Normal Bowel Sounds. absent: Tenderness - Rectal Exam Rectal Exam: NORMAL INSPECTION - Extremities Exam Extremities Exam: Full ROM, Normal Capillary Refill, Normal Inspection. absent: Joint Swelling, Pedal Edema - Back Exam Back Exam: NORMAL INSPECTION - Neurological Exam Neurological Exam: Alert, Awake, CN II-XII Intact, Normal Gait, Oriented x3 - Psychiatric Exam Psychiatric exam: Normal Affect, Normal Mood - Skin Skin Exam: Dry, Erythema Assessment and Plan (1) Cellulitis, leg Status: Acute (2) Hypoglycemia Status: Acute (3) Pneumonia Status: Acute - Assessment and Plan (Free Text) Assessment: cont rx cellulitis/ diabetic foot infection + Pseudomonas wound culture cont wound care podiatry follow up
[2018-12-18] MEDS: (Lantus) Insulin Glargine, Recombinant SC SCH (21:45)
[2018-12-19] MEDS: Cefepime IV 1 gm in Dextrose 1 GM/50 ML BAG IVPB SCH ×2 (00:58→14:27)
[2018-12-19 07:45] LABS: ALB/GLOB RATIO 0.7 (1.0-2.1); ALBUMIN 3.2 g/dL (3.5-5.0); CALCIUM 8.6 mg/dl (8.6-10.4)
[2018-12-19 07:53] LABS: BASO % 0.6 % (0.0-2.0); EOS # 0.1 K/uL (0.0-0.7); EOS % 1.1 % (0.0-4.0); HEMOGLOBIN 8.5 g/dL (12.0-18.0); LYMPH # 1.2 K/uL (1.0-4.3); LYMPH % 18.7 % (20.0-40.0); MEAN CELL VOLUME 84.8 fL (80.0-94.0); MEAN CORPUSCULAR HEMOGLOBIN 27.9 pg (27.0-31.0); MEAN CORPUSCULAR HGB CONC 32.9 g/dL (33.0-37.0); MEAN PLATELET VOLUME 8.4 fL (7.2-11.7); MONO # 0.8 K/uL (0.0-0.8); MONO % 12.1 % (0.0-10.0); NEUT # 4.4 K/uL (1.8-7.0); NEUT % 67.5 % (50.0-75.0); NRBC % 0.1 % (0.0-2.0); RBC 3.03 Mil/uL (4.40-5.90); RED CELL DISTRIBUTION WIDTH 16.7 % (11.5-14.5); WHITE BLOOD COUNT 6.5 K/uL (4.8-10.8)
[2018-12-19] MEDS: (Novolin R) Insulin Human Regular 100 units/ml vial SC SCH ×5 (07:56→21:45)
[2018-12-19] MEDS: Enoxaparin 40 mg Syringe SC SCH (12:12)
[2018-12-19] MEDS: Saccharomyces Boulardi 250 mg Cap PO SCH ×2 (12:12→17:31)
[2018-12-19] MEDS: Pantoprazole 40 mg EC Tab PO SCH (12:13)
[2018-12-19] MEDS: Dakin's Topical 0.25%-Half Strength (480 ml) TOP SCH (12:43)
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
[2018-12-19] MEDS: (Lantus) Insulin Glargine, Recombinant SC SCH (21:50)
[2018-12-20] MEDS: Cefepime IV 1 gm in Dextrose 1 GM/50 ML BAG IVPB SCH ×3 (01:02→17:40)
[2018-12-20] MEDS: (Novolin R) Insulin Human Regular 100 units/ml vial SC SCH ×4 (07:45→22:00)
[2018-12-20 08:08] LABS: BASO # 0.1 K/uL (0.0-0.2); BASO % 0.7 % (0.0-2.0); EOS # 0.1 K/uL (0.0-0.7); EOS % 1.1 % (0.0-4.0); HEMOGLOBIN 8.5 g/dL (12.0-18.0); LYMPH # 1.1 K/uL (1.0-4.3); LYMPH % 16.1 % (20.0-40.0); MEAN CELL VOLUME 85.1 fL (80.0-94.0); MEAN CORPUSCULAR HEMOGLOBIN 27.7 pg (27.0-31.0); MEAN CORPUSCULAR HGB CONC 32.5 g/dL (33.0-37.0); MEAN PLATELET VOLUME 8.2 fL (7.2-11.7); MONO # 0.6 K/uL (0.0-0.8); MONO % 8.8 % (0.0-10.0); NEUT # 5.2 K/uL (1.8-7.0); NEUT % 73.3 % (50.0-75.0); RBC 3.05 Mil/uL (4.40-5.90); RED CELL DISTRIBUTION WIDTH 16.4 % (11.5-14.5); WHITE BLOOD COUNT 7.1 K/uL (4.8-10.8)
[2018-12-20 08:23] LABS: ALB/GLOB RATIO 0.7 (1.0-2.1); CALCIUM 8.5 mg/dl (8.6-10.4)
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
[2018-12-20] MEDS: Pantoprazole 40 mg EC Tab PO SCH (10:22)
[2018-12-20] MEDS: Saccharomyces Boulardi 250 mg Cap PO SCH ×2 (10:22→17:39)
[2018-12-20] MEDS: Enoxaparin 40 mg Syringe SC SCH (10:22)
[2018-12-20] MEDS: Dakin's Topical 0.25%-Half Strength (480 ml) TOP SCH (10:22)
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
[2018-12-20] MEDS: (Lantus) Insulin Glargine, Recombinant SC SCH (22:00)
[2018-12-21] MEDS: Cefepime IV 1 gm in Dextrose 1 GM/50 ML BAG IVPB SCH ×2 (05:58→17:17)
[2018-12-21 07:21] LABS: BASO # 0.1 K/uL (0.0-0.2); EOS # 0.1 K/uL (0.0-0.7); EOS % 1.5 % (0.0-4.0); HEMOGLOBIN 8.5 g/dL (12.0-18.0); LYMPH # 1.2 K/uL (1.0-4.3); MEAN CELL VOLUME 84.6 fL (80.0-94.0); MEAN CORPUSCULAR HEMOGLOBIN 27.5 pg (27.0-31.0); MEAN CORPUSCULAR HGB CONC 32.5 g/dL (33.0-37.0); MEAN PLATELET VOLUME 8.1 fL (7.2-11.7); MONO # 0.7 K/uL (0.0-0.8); MONO % 9.2 % (0.0-10.0); NEUT # 5.5 K/uL (1.8-7.0); NEUT % 72.3 % (50.0-75.0); NRBC % 0.1 % (0.0-2.0); RBC 3.08 Mil/uL (4.40-5.90); RED CELL DISTRIBUTION WIDTH 16.3 % (11.5-14.5); WHITE BLOOD COUNT 7.6 K/uL (4.8-10.8)
[2018-12-21 07:42] LABS: ALB/GLOB RATIO 0.7 (1.0-2.1); CALCIUM 8.5 mg/dl (8.6-10.4)
[2018-12-21] MEDS: (Novolin R) Insulin Human Regular 100 units/ml vial SC SCH ×4 (08:00→21:45)
[2018-12-21] MEDS: Saccharomyces Boulardi 250 mg Cap PO SCH ×2 (09:47→17:18)
[2018-12-21] MEDS: Dakin's Topical 0.25%-Half Strength (480 ml) TOP SCH (09:48)
[2018-12-21] MEDS: Pantoprazole 40 mg EC Tab PO SCH (09:48)
--- NOTE | 2018-12-21 10:38 | NM ---
Date of service: 12/18/2018 PROCEDURE: THREE-PHASE NUCLEAR BONE SCAN LEFT FOOT HISTORY: ? neuropathic joint/osteomyelitis/abscess COMPARISON: LEFT ANKLE/FOOT RADIOGRAPHS 12/12/2018 AND MRI 12/14/2018. TECHNIQUE: Following administration of 24.6 mCi of Tc MDP multiplanar whole body images were obtained. FINDINGS: Dynamic phase imaging demonstrates marked hyper activity at the left ankle region which persist on immediate and delayed static images in the identical distribution. Mild hyper activity is identified at the anterior ankle at the right side and left knee and minimally at the right knee only in delayed static images compatible with osteoarthritis. Activity at the left ankle may be a function of osteomyelitis but is difficult to exclude neuropathic joint/fracture related hyperactivity as well. 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 Further evaluation by combination white blood cell tagged bone scan with sulfur colloid scan performed simultaneously can differentiate. Degenerative activity bilateral knees, left greater than right and minimally at the right ankle.
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
[2018-12-21] MEDS: guaiFENesin 100 mg/5 ml Syrup UD PO PRN (21:43)
[2018-12-21] MEDS: (Lantus) Insulin Glargine, Recombinant SC SCH (21:46)
[2018-12-22] MEDS: Cefepime IV 1 gm in Dextrose 1 GM/50 ML BAG IVPB SCH ×2 (05:19→17:24)
[2018-12-22] MEDS: (Novolin R) Insulin Human Regular 100 units/ml vial SC SCH ×5 (07:37→22:00)
[2018-12-22 08:22] LABS: BASO % 0.2 % (0.0-2.0); EOS # 0.1 K/uL (0.0-0.7); EOS % 1.2 % (0.0-4.0); LYMPH # 1.4 K/uL (1.0-4.3); LYMPH % 15.4 % (20.0-40.0); MEAN CELL VOLUME 84.6 fL (80.0-94.0); MEAN CORPUSCULAR HEMOGLOBIN 27.7 pg (27.0-31.0); MEAN CORPUSCULAR HGB CONC 32.8 g/dL (33.0-37.0); MEAN PLATELET VOLUME 8.6 fL (7.2-11.7); MONO # 0.8 K/uL (0.0-0.8); MONO % 9.1 % (0.0-10.0); NEUT # 6.5 K/uL (1.8-7.0); NEUT % 74.1 % (50.0-75.0); RBC 3.24 Mil/uL (4.40-5.90); RED CELL DISTRIBUTION WIDTH 16.2 % (11.5-14.5); WHITE BLOOD COUNT 8.8 K/uL (4.8-10.8)
[2018-12-22 08:48] LABS: ALB/GLOB RATIO 0.7 (1.0-2.1); ALBUMIN 3.1 g/dL (3.5-5.0); CALCIUM 8.6 mg/dl (8.6-10.4)
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
[2018-12-22] MEDS: Saccharomyces Boulardi 250 mg Cap PO SCH ×2 (09:58→17:23)
[2018-12-22] MEDS: Pantoprazole 40 mg EC Tab PO SCH (09:58)
[2018-12-22] MEDS: Dakin's Topical 0.25%-Half Strength (480 ml) TOP SCH (10:03)
--- NOTE | 2018-12-22 11:55 | PCM.SURG1 ---
Surgeon's Initial Post Op Note - Surgeon's Notes Surgeon: Maximo Linares MD Dog Track Kennel Manager: NONE Type of Anesthesia: Local Pre-Operative Diagnosis: Poor venous access Operative Findings: US showed a patent right basilic vein Post-Operative Diagnosis: Poor venous access Operation Performed: Single lumen picc placement right arm, 35 cm. Specimen/Specimens Removed: NONE Estimated Blood Loss: EBL {In ML}: 2 Blood Products Given: N/A Drains Used: No Drains Post-Op Condition: Fair Date of Surgery/Procedure: 12/22/18 Time of Surgery/Procedure: 11:50
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
[2018-12-22] MEDS: (Lantus) Insulin Glargine, Recombinant SC SCH (21:26)
[2018-12-23] MEDS: Cefepime IV 1 gm in Dextrose 1 GM/50 ML BAG IVPB SCH ×2 (05:30→17:20)
[2018-12-23] MEDS: (Novolin R) Insulin Human Regular 100 units/ml vial SC SCH ×4 (08:04→23:03)
[2018-12-23] MEDS: Saccharomyces Boulardi 250 mg Cap PO SCH ×2 (10:01→17:28)
[2018-12-23] MEDS: Pantoprazole 40 mg EC Tab PO SCH (10:01)
[2018-12-23] MEDS: Dakin's Topical 0.25%-Half Strength (480 ml) TOP SCH (10:03)
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
[2018-12-23] MEDS: guaiFENesin 100 mg/5 ml Syrup UD PO PRN (21:54)
[2018-12-23] MEDS: (Lantus) Insulin Glargine, Recombinant SC SCH (21:59)
[2018-12-23 22:20] VITALS: RESP 20
[2018-12-24] MEDS: Cefepime IV 1 gm in Dextrose 1 GM/50 ML BAG IVPB SCH ×2 (05:35→17:13)
[2018-12-24] MEDS: (Novolin R) Insulin Human Regular 100 units/ml vial SC SCH ×3 (07:51→17:08)
[2018-12-24] MEDS: Pantoprazole 40 mg EC Tab PO SCH (10:18)
[2018-12-24] MEDS: Saccharomyces Boulardi 250 mg Cap PO SCH ×2 (10:18→17:10)
[2018-12-24] MEDS: Dakin's Topical 0.25%-Half Strength (480 ml) TOP SCH (10:27)
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
[2018-12-24 17:05] VITALS: PULSE 97; TEMP 98.2; O2SAT 97
[2018-12-24] MEDS: guaiFENesin 100 mg/5 ml Syrup UD PO PRN (17:05)
[2018-12-24 19:01] VITALS: BP 151/95
--- NOTE | 2018-12-30 08:29 | DS ---
CHIEF COMPLAINT: The patient was admitted to the hospital with chief complaint of multi diabetic foot, infected legs, uncontrolled diabetes. The patient was placed on bedrest, IV fluids, IV antibiotic, podiatry. The patient was transferred to rehab. DIAGNOSIS: Diabetic foot, uncontrolled. Gay Ordaz MD
== END 2018-12-24 21:42 | DRG 566 ==
LOC: C.ER 07:55 → C.9E 09:35 → C.3T 15:43
PROVIDERS: ADMIT Internal Medicine Pulmonary Disease; ATTEND Internal Medicine Pulmonary Disease
PROC: 05HB33Z Insertion of Infusion Device into Right Basilic Vein, Percutaneous Approach (ICD-10-PCS; principal; 2018-12-22)
PROC: B54MZZA Ultrasonography of Right Upper Extremity Veins, Guidance (ICD-10-PCS; 2018-12-22)
DX: E10.621 Type 1 diabetes mellitus with foot ulcer (principal); E10.649 Type 1 diabetes mellitus with hypoglycemia without coma; J18.9 Pneumonia, unspecified organism; L02.612 Cutaneous abscess of left foot; L97.329 Non-pressure chronic ulcer of left ankle with unspecified severity; L97.529 Non-pressure chronic ulcer of other part of left foot with unspecified severity; L03.116 Cellulitis of left lower limb; L03.115 Cellulitis of right lower limb; J84.9 Interstitial pulmonary disease, unspecified; R56.9 Unspecified convulsions; E10.628 Type 1 diabetes mellitus with other skin complications; M86.672 Other chronic osteomyelitis, left ankle and foot; E10.622 Type 1 diabetes mellitus with other skin ulcer; E10.69 Type 1 diabetes mellitus with other specified complication; E10.610 Type 1 diabetes mellitus with diabetic neuropathic arthropathy; B96.5 Pseudomonas (aeruginosa) (mallei) (pseudomallei) as the cause of diseases classified elsewhere; B96.20 Unspecified Escherichia coli [E. coli] as the cause of diseases classified elsewhere; I10 Essential (primary) hypertension; D64.9 Anemia, unspecified; T24.001S Burn of unspecified degree of unspecified site of right lower limb, except ankle and foot, sequela; Z79.4 Long term (current) use of insulin; Z79.899 Other long term (current) drug therapy; Z83.3 Family history of diabetes mellitus